=== PATIENT | female | born 1940 | race Caucasian/White ===

== ENCOUNTER → 2016-10-15 | Outpatient (CLI) | payer OTHER, BC ==
[~2016-10-15] MED LIST: ALBU1AER9 INH; ALL180 PO; ARFO15NE IN; ARFO15NE NEB; ASPI81TA21 PO; ATOR-24 PO; ATRIN INH; DYZ PO; FERR1TAB13 PO; FEXO1TAB49 PO; FRRS300 PO; GUAI1TAB55 PO; IPRA0.03 INH; IPRASOL34 INH; IPRASOL4 NEB; LEVO1TAB33 PO; LISI-729 PO; MONT1TAB5 PO; MULT-506 PO; OXGN; PLMINSR5 INH; PRED10TA PO; PROP80TA2 PO; ROFL1TAB5 PO; SNK PO; SPRIN/30 INH; TRIATAB3 PO; ZTHM250 PO
--- NOTE | 2016-10-15 16:11 | DIAGNOSTIC IMAGING REPORT ---
THYROID ULTRASOUND HISTORY: Enlarged thyroid E04.9 Enlarged thyroidthyroid US, attn. L side. Recent PET scan a COMPARISON: None. FINDINGS: Right lobe: Maximum dimension 6.3 cm. Heterogeneous internal architecture. Multiple nodules throughout the largest of which measures 1.7 cm at the midpole region. Left lobe: Enlarged and homogeneous. 5.5 cm maximum dimension. Multiple nodules throughout the left lobe with the largest joint multicystic, partial chronic component centrally measuring 3 cm. Isthmus: No nodules. IMPRESSION: Enlarged multicystic multinodular thyroid Electronically signed by: Silvio Nugent M.D. 10/15/2016 4:09 PM Dictated Date/Time: 10/15/2016 4:07 PM
== END | disposition home or self-care (01) ==
LOC: C.ULTR 15:36
PROVIDERS: ATTEND Nurse Practitioner
DX: E04.9 Nontoxic goiter, unspecified (principal)

== ENCOUNTER → 2016-11-18 | Outpatient (CLI) | payer OTHER, BC ==
[2016-11-18 13:18] LABS: THYROID STIMULATING HORMONE 0.168 uIu/ml (0.300-4.500)
== END | disposition home or self-care (01) ==
LOC: C.LABPVFM 10:48
PROVIDERS: ATTEND Internal Medicine Endocrinology, Diabetes & Metabolism
DX: E01.0 Iodine-deficiency related diffuse (endemic) goiter (principal)

== ENCOUNTER 2016-11-21 14:08 | Inpatient (IN) | payer OTHER, BC ==
[~2016-11-21] VITALS: Ht 162.6 cm; Wt 73.7 kg
[~2016-11-21 14:08] MED LIST changes: -ARFO15NE NEB; -FERR1TAB13 PO; -FEXO1TAB49 PO; -IPRA0.03 INH; -IPRASOL4 NEB; +KETAMINE HCL INJ 50 MG/ML 10 ML VIAL IV ONE; -LEVO1TAB33 PO; -LISI-729 PO; -MONT1TAB5 PO; -MULT-506 PO; -PRED10TA PO; +ROCURONIUM BROMIDE 10 MG/ML 10 ML VIAL IV ONE; -ROFL1TAB5 PO; -TRIATAB3 PO
[2016-11-21] MEDS ORDERED: RAPID SEQUENCE INDUCTION BAG ONE (14:18)
[2016-11-21] MEDS ORDERED: SODIUM CHLORIDE 0.9% 1000ML 1,000 ML IV STA (14:50)
[2016-11-21] MEDS ORDERED: LEVAQUIN 750MG / 150ML D5W IV STA (14:50)
[2016-11-21 14:53] LABS: BASO % 0.2 %; BASO ABS # 0.02 K/uL (0-0.2); COMPLETE YES; EOS % 0.6 %; HEMATOCRIT 40.7 % (37-47); IG% 0.3 %; LYMPH % 12.6 %; LYMPH ABS # 1.28 K/uL (1.2-3.4); MEAN CELL VOLUME 104.9 fL (80-100); MEAN CORPUSCULAR HEMOGLOBIN 30.7 pg (25-34); MEAN CORPUSCULAR HGB CONC 29.2 g/dl (32-36); MEAN PLATELET VOLUME 9.3 fL (7.4-10.4); MONO % 4.2 %; NEUT % 82.1 %; PLATELET COUNT 256 K/uL (130-400); RED BLOOD COUNT 3.88 M/uL (4.2-5.4); WHITE BLOOD COUNT 10.16 K/uL (4.8-10.8)
[2016-11-21 14:57] LABS: ISTAT CARBON DIOXIDE > 40 mEq/l (24-31); ISTAT CHLORIDE 94 mEq/L (101-112); ISTAT CREATININE 1.1 mg/dl (0.6-1.3); ISTAT HEMATOCRIT 39 % (37-47); ISTAT HEMOGLOBIN 13.3 g/dl (12.0-16.0); ISTAT IONIZED CALCIUM 1.46 mmol/l (1.12-1.32); ISTAT SODIUM 144 mEq/L (135-144)
--- NOTE | 2016-11-21 14:58 | EMERGENCY ROOM VISIT NOTE ---
History Report prepared by Estuardo: Mary Rojas Under the Supervision of: Dr. Cesar Godfrey D.O. First contact with patient: 14:06 Chief Complaint: RESPIRATORY DISTRESS Stated Complaint: RESPIRATORY History of Present Illness The patient is a 76 year old female who presents to the Emergency Room with complaints of worsening weakness starting 4 days ago. She was brought to the ED by EMS who state that she is moving little air. She was given albuterol and nebulizer treatments, but is still having difficulty breathing. The history was obtained from the patient's . The patient has been having increased difficulty breathing recently. She is usually on 4 L of oxygen, but she has been turning it up to 5 L. She has been weak and having difficulty walking around. Last night, she fell and had difficulty getting back up. She might have injured her ankle or foot. Her believes she did not hit her head or lose consciousness. She has also had a decreased appetite. She has a productive cough, which is normal for her. She has a history of COPD and has been on oxygen for 6-7 years. The patient smokes regularly. She has been having increased leg swelling recently. She has not had any fevers. He states that she does not drink alcohol. She has not been placed on a ventilator before. He states that she has a history of heart palpitations, but no history of MS. She is borderline diabetic. She has no history of cancer. Source of History: spouse/significant other Onset: 4 days ago Position: other (global) Quality: other (weakness) Timing: worsening Associated Symptoms: + SOB, + cough, No fevers Note: Pt has leg swelling and decreased appetite. Review of Systems See HPI for pertinent positives & negatives. A total of 10 systems reviewed and were otherwise negative. Past Medical & Surgical Medical Problems: (1) Acute respiratory failure (2) Atrial Fibrillation (3) Chronic Respiratory Failure (4) COPD (chronic obstructive pulmonary disease) (5) Hyperlipidemia Nec/Nos (6) Hypertension Nos Family History FH: heart disease Social History Smoking Status: Current Every Day Smoker Marital Status: Housing Status: lives with significant other Occupation Status: retired Current/Historical Medications Scheduled Arformoterol Tartrate (Brovana), 1 VIAL NEB BID Aspirin Enteric Coated (Ecotrin Or Generic), 81 MG PO DAILY Atorvastatin (Lipitor), 40 MG PO DAILY Budesonide (Pulmicort Respules 0.5MG/2ML), 2 ML INH Q12HR Ferrous Sulfate (Kp Ferrous Sulfate), 325 MG PO DAILY Fexofenadine Hcl (Reny Allergy), 180 MG PO BID Levofloxacin (Levaquin), 500 MG PO DIRECTED Lisinopril (Zestril), 5 MG PO DAILY Montelukast Sodium (Montelukast Sodium), 10 MG PO QPM Multivitamin (Multivitamin), 1 TAB PO DAILY Oxygen (Oxygen), 4 LITERS NA UD Prednisone Tab (Prednisone), 10 MG PO DIRECTED Propranolol (Inderal), 80 MG PO BID Roflumilast (Daliresp), 500 MCG PO DAILY Senna (Senna Lax), 8.6 MG PO QAM Tiotropium [place] (Spiriva Handihaler), 2 PUFFS INH DAILY Triamterene/Hctz (Triamterene/Hctz 37.5-25MG), 1 TAB PO BID Scheduled PRN Guaifenesin Ext Rel (Mucinex Ext Rel), 600-1,200 MG PO BID PRN for CONGESTION Ipratropium [place] (Nasal) (Ipratropium [place]), 4 PUFF INH Q4H PRN for PRN Ipratropium-Albuterol (Duoneb), 1 VIAL NEB Q4H PRN for SOB/Wheezing Allergies Coded Allergies: Penicillins (Verified Allergy, Intermediate, HIVES, 08/16/14) Cephalosporins (Verified Allergy, Mild, CEPHALEXIN--GI, 08/16/14) Tetracycline (Verified Allergy, Mild, RASH, 08/16/14) Doxycycline (Verified Allergy, Unknown, RASH, 08/16/14) Sulfamethoxazole (Verified Allergy, Unknown, 08/16/14) Replaces SULFAMETHOXAZ Trimethoprim (Verified Allergy, Unknown, 08/16/14) Replaces SULFAMETHOXAZ Physical Exam Vital Signs Date Time Temp Pulse Resp B/P Pulse Ox O2 Delivery O2 Flow Rate FiO2 11/21/16 15:45 87 20 161/74 100 Mechanical Ventilator 11/21/16 15:40 86 20 155/57 100 Mechanical Ventilator 11/21/16 15:35 87 20 150/62 100 Mechanical Ventilator 11/21/16 15:30 87 20 137/51 100 Mechanical Ventilator 11/21/16 15:25 89 20 130/59 99 Mechanical Ventilator 11/21/16 15:20 87 20 123/58 99 Mechanical Ventilator 11/21/16 15:15 90 20 112/60 100 Mechanical Ventilator 11/21/16 15:10 89 20 94/51 99 Mechanical Ventilator 11/21/16 15:05 90 20 75/38 99 Mechanical Ventilator 11/21/16 15:00 91/45 Mechanical Ventilator 11/21/16 14:58 96 20 97 Mechanical Ventilator 11/21/16 14:55 84/39 Mechanical Ventilator 11/21/16 14:53 95 16 97 Mechanical Ventilator 11/21/16 14:51 79/41 Mechanical Ventilator 11/21/16 14:50 60 11/21/16 14:50 59/46 Mechanical Ventilator 11/21/16 14:48 96 17 97 Mechanical Ventilator 11/21/16 14:45 71/41 Mechanical Ventilator 11/21/16 14:43 95 17 98 Mechanical Ventilator 11/21/16 14:40 104/53 Mechanical Ventilator 11/21/16 14:38 91 94 Mechanical Ventilator 11/21/16 14:37 148/58 11/21/16 14:33 85 97 CPAP 11/21/16 14:29 140/61 11/21/16 14:28 84 28 97 CPAP 11/21/16 14:23 82 24 95 CPAP 11/21/16 14:18 81 11/21/16 14:18 85 27 97 CPAP 11/21/16 14:10 98 11/21/16 14:08 98 BiPAP 11/21/16 14:08 36.9 163 36 146/58 98 BiPAP 11/21/16 14:08 98 BiPAP Physical Exam GENERAL: Patient is listless and lethargic. Responds to verbal commands then falls asleep easily. EYES: The conjunctivae are clear. The pupils are round and reactive. EARS, NOSE, MOUTH AND THROAT: The nose is without any evidence of any deformity. Mucous membranes are moist tongue is midline NECK: The neck is nontender and supple. RESPIRATORY: Diminished in all lung walsh. Poor air entry with very shallow respirations noted. CARDIOVASCULAR: Regular rate and rhythm noted there no murmurs rubs or gallops normal S1 normal S2 GASTROINTESTINAL: The abdomen is soft. Bowel sounds are present in all quadrants. Abdomen is nontender MUSCULOSKELETAL/EXTREMITIES: There is no evidence of gross deformity full range of motion is noted in the hips and shoulders SKIN: There is no obvious evidence of any rash. There are no petechiae, pallor or cyanosis noted. Pedal edema bilaterally. NEUROLOGIC: Patient is lethargic, unable to answer questions. Unable to assess at this time. Medical Decision & Procedures ER Provider Diagnostic Interpretation: X-ray results as stated below per interpretation by me and the radiologist. SINGLE VIEW CHEST CLINICAL HISTORY: Sepsis. FINDINGS: An AP, portable, upright chest radiograph is compared to study dated 08/16/2014 and correlated with chest CT dated 06/10/2012. The examination is degraded by portable technique and patient rotation. An endotracheal tube has been placed. The tip of the catheter projects 2.5 cm above the unruly. The heart is normal for projection and there is atherosclerotic calcification of the thoracic aorta. The pulmonary vasculature is noncongested. Emphysema and chronic interstitial thickening are similar to previous. There is bibasilar patchy airspace consolidation and small pleural effusions. A calcified granuloma is noted at the right apex. No pneumothorax is seen. The skeletal structures are osteopenic. The bony thorax is grossly intact. IMPRESSION: 1. An endotracheal tube has been placed. The tip of the catheter projects 2.5 cm above the unruly. 2. Emphysema. 3. There is bibasilar patchy airspace consolidation with small pleural effusions. The appearance is typical for pneumonia/aspiration pneumonitis. Clinical correlation will be required and radiographic follow-up to resolution is recommended. Electronically signed by: Darci Hobbs M.D. 11/21/2016 3:09 PM Dictated Date/Time: 11/21/2016 3:07 PM Laboratory Results 11/21/16 14:42 Red Blood Count 3.88, Mean Corpuscular Volume 104.9, Mean Corpuscular Hemoglobin 30.7, Mean Corpuscular Hemoglobin Concent 29.2, Mean Platelet Volume 9.3, Neutrophils (%) (Auto) 82.1, Lymphocytes (%) (Auto) 12.6, Monocytes (%) ( Auto) 4.2, Eosinophils (%) (Auto) 0.6, Basophils (%) (Auto) 0.2, Neutrophils # ( Auto) 8.34, Lymphocytes # (Auto) 1.28, Monocytes # (Auto) 0.43, Eosinophils # ( Auto) 0.06, Basophils # (Auto) 0.02 11/21/16 14:42 Test 11/21/16 14:42 11/21/16 14:43 11/21/16 14:54 11/21/16 15:35 White Blood Count 10.16 K/uL (4.8-10.8) Red Blood Count 3.88 M/uL (4.2-5.4) Hemoglobin 11.9 g/dL (12.0-16.0) Hematocrit 40.7 % (37-47) Mean Corpuscular Volume 104.9 fL (80-100) Mean Corpuscular Hemoglobin 30.7 pg (25-34) Mean Corpuscular Hemoglobin Concent 29.2 g/dl (32-36) Platelet Count 256 K/uL (130-400) Mean Platelet Volume 9.3 fL (7.4-10.4) Neutrophils (%) (Auto) 82.1 % Lymphocytes (%) (Auto) 12.6 % Monocytes (%) (Auto) 4.2 % Eosinophils (%) (Auto) 0.6 % Basophils (%) (Auto) 0.2 % Neutrophils # (Auto) 8.34 K/uL (1.4-6.5) Lymphocytes # (Auto) 1.28 K/uL (1.2-3.4) Monocytes # (Auto) 0.43 K/uL (0.11-0.59) Eosinophils # (Auto) 0.06 K/uL (0-0.5) Basophils # (Auto) 0.02 K/uL (0-0.2) RDW Standard Deviation 54.7 fL (36.4-46.3) RDW Coefficient of Variation 14.3 % (11.5-14.5) Immature Granulocyte % (Auto) 0.3 % Immature Granulocyte # (Auto) 0.03 K/uL (0.00-0.02) Erythrocyte Sedimentation Rate 47 mm/hr (0-21) Prothrombin Time 9.9 SECONDS (9.0-12.0) Prothromb Time International Ratio 0.9 (0.9-1.1) Activated Partial Thromboplast Time 21.5 SECONDS (21.0-31.0) Partial Thromboplastin Ratio 0.8 Venous Blood pH 7.19 (7.36-7.41) Venous Blood Partial Pressure CO2 118 mmHg (38.0-50.0) Venous Blood Partial Pressure O2 72 mmHg Venous Blood HCO3 44 meq/L Venous Blood Oxygen Saturation 91.1 % Venous Blood Base Excess 11.8 mmol/L Est Creatinine Clear Calc Drug Dose 43.1 ml/min Estimated GFR () 56.1 Estimated GFR (Non- 48.4 BUN/Creatinine Ratio 42.7 (10-20) Calcium Level 10.7 mg/dl (8.5-10.1) Phosphorus Level 4.3 mg/dl (2.5-4.9) Magnesium Level 2.5 mg/dl (1.8-2.4) Total Bilirubin 0.3 mg/dl (0.2-1) Aspartate Amino Transf (AST/SGOT) 20 U/L (15-37) Alanine Aminotransferase (ALT/SGPT) 20 U/L (12-78) Alkaline Phosphatase 55 U/L (45-117) Total Creatine Kinase 31 U/L (26-192) Creatine Kinase MB < 0.5 ng/ml (0.5-3.6) Creatine Kinase MB Ratio (0-3.0) Troponin I < 0.015 ng/ml (0-0.045) C-Reactive Protein 2.79 mg/dl (0-0.29) Pro-B-Type Natriuretic Peptide 814 pg/ml (0-1800) Total Protein 7.4 gm/dl (6.4-8.2) Albumin 3.1 gm/dl (3.4-5.0) Globulin 4.3 gm/dl (2.5-4.0) Albumin/Globulin Ratio 0.7 (0.9-2) Lipase 214 U/L (73-393) Chemistry Specimen Hemolysis Bedside Hemoglobin 13.3 g/dl (12.0-16.0) Bedside Hematocrit 39 % (37-47) Bedside Sodium 144 mEq/L (135-144) Bedside Potassium 5.7 mEq/L (3.3-5.0) Bedside Chloride 94 mEq/L (101-112) Bedside Total CO2 > 40 mEq/l (24-31) Anion Gap 11.0 mmol/L (16-25) Bedside Blood Urea Nitrogen 48 mg/dl (7-18) Bedside Creatinine 1.1 mg/dl (0.6-1.3) Bedside Glucose (other) 151 mg/dl (70-99) Bedside Ionized Calcium (Adiel) 1.46 mmol/l (1.12-1.32) Bedside Lactic Acid Venous 0.37 mmol/L (0.90-1.70) Urine Color YELLOW Urine Appearance CLEAR (CLEAR) Urine pH 6.0 (4.5-7.5) Urine Specific [place] 1.018 (1.000-1.030) Urine Protein 1+ (NEG) Urine Glucose (UA) NEG (NEG) Urine Ketones NEG (NEG) Urine Occult Blood 1+ (NEG) Urine Nitrite POS (NEG) Urine Bilirubin NEG (NEG) Urine Urobilinogen NEG (NEG) Urine Leukocyte Esterase NEG (NEG) Urine WBC (Auto) 1-5 /hpf (0-5) Urine RBC (Auto) 0-4 /hpf (0-4) Urine Hyaline Casts (Auto) 5-10 /lpf (0-5) Urine Epithelial Cells (Auto) 10-20 /lpf (0-5) Urine Bacteria (Auto) 4+ (NEG) Laboratory results per my review. Medications Administered Medications (Trade) Dose Ordered Sig/Omkar Route Start Time Stop Time Status Last Admin Dose Admin Levofloxacin 750 mg 750 mg NOW STAT IV 11/21/16 14:50 11/21/16 14:51 DC 11/21/16 15:17 750 MG Sodium Chloride (Nss 1000ml) 1,000 ml @ 999 mls/hr Q1H1M STAT IV 11/21/16 14:50 11/21/16 15:50 DC 11/21/16 15:10 999 MLS/HR Procedure Endotracheal Intubation Indication respiratory failure. The patient was on 100% oxygen via NRB prior to the procedure. Suction, airway equipment, RSI drugs, respiratory equipment, and appropriate personnel were prepared prior to the initiation of the procedure. A time out was taken. Induction was performed with ketamine 80 mg. After observing the clinical benefit of the medications, the airway was easily visualized utilizing a GlideScope. A 7.5 size ETT tube was placed atraumatically to 21 cm to the lip using standard technique. The cuff inflated without signs of malfunction. There were bilateral breath sounds, positive colormetric change, no gastric sounds, a good capnography waveform, and post procedure pulse oximetry was 96%. Post intubation sedation and paralysis was administered using propofol. There were no complications. ECG Indication: SOB/dyspnea Rate (beats per minute): 80 Rhythm: normal sinus Findings: peaked T-waves, no ectopy, other (no ST segment abnormalities) Comparison ECG Date: Change: no significant change ED Course 1415: The patient was evaluated in room B1. A complete history and physical examination were performed. 1418: Rapid Sequence Induction Bag 1 ea. 1430: The patient was intubated according to the procedure note above. 1450: NSS 1000 ml @ 999 mls/hr IV, Levofloxacin 750 mg IV. 1500: Duoneb 12 ml INH. 1504: I discussed the patient's case with LOUISE Lin - hospitalist. The patient will be evaluated for further management. 1507: I reevaluated the patient. I discussed results and treatment plan with her . He verbalizes agreement and understanding. The patient will be evaluated for further management and care. Medical Decision Prior records/ancillary studies reviewed. Triage Nursing notes reviewed. Additional history obtained from the family. The patient's history was concerning for respiratory difficulties. Differential diagnosis: Etiologies such as infections, reactive airway disease, pneumonia, pneumothorax , COPD, CHF, cardiac ischemia, pulmonary embolism, musculoskeletal, gastrointestinal, as well as others were entertained. The patient is a 76-year-old female who has a history of COPD who presented to the emergency department for ongoing progressive weakness and shortness of breath. The patient has been increasing her oxygen with her home oxygen therapy. Her significant other had to give history because the patient was in respiratory distress and very listless and lethargic upon arrival. The patient presented to the emergency department by ambulance. On route she received Solu- Medrol and multiple bronchodilator treatments. She was not significantly improved and according to the prehospital personnel appeared to be having worsening symptoms. The patient was quickly intubated for respiratory treatment. The patient was found have significant respiratory acidosis. She was treated with IV fluids and IV antibiotics. She was reevaluated multiple times. I discussed the patient's laboratory and radiographic studies with her significant other. I also discussed his case [facility] They've agreed to evaluate the patient in the emergency department for further management and disposition. Consults Time Called: 1501 Consulting Physician: LOUISE Lin - hospitalist Returned Call: 1504 I discussed the patient's case with him. The patient will be evaluated for further management. Impression Primary Impression: COPD exacerbation Additional Impressions: Hypoxia Pneumonia Respiratory acidosis Altered mental status Hyperkalemia Critical Care I have personally spent greater than 45 minutes of critical care time in the direct management of this patient. This includes bedside care, interpretation of diagnostic studies, and testing, discussion with consultants, patient, and family members, and other required patient management activities. This 45 minutes is in excess of all separately billable procedures. Scribe Attestation The scribe's documentation has been prepared under my direction and personally reviewed by me in its entirety. I confirm that the note above accurately reflects all work, treatment, procedures, and medical decision making performed by me. Departure Information Dispostion Being Evaluated By Hospitalist Referrals Yanira Valdez, [email or web address] (PCP) Patient Instructions Asthma - [facility], COPD - [facility], Croup - [facility], [facility] Problem Qualifiers Additional Impressions: Pneumonia Pneumonia type: due to unspecified organism Laterality: bilateral Lung location: unspecified part of lung Qualified Codes: J18.9 - Pneumonia, unspecified organism Altered mental status Altered mental status type: unspecified Qualified Codes: R41.82 - Altered mental status, unspecified
[2016-11-21] MEDS ORDERED: MULT-506 PO (15:00)
[2016-11-21] MEDS ORDERED: IPRASOL4 NEB (15:00)
[2016-11-21] MEDS ORDERED: ALBUT/IPRATROP 3MG/0.5MG NEB 3 ML VIAL INH ONE (15:00)
[2016-11-21] MEDS ORDERED: LISI-729 PO (15:00)
[2016-11-21] MEDS ORDERED: FEXO1TAB49 PO (15:00)
[2016-11-21] MEDS ORDERED: IPRA0.03 INH (15:00)
[2016-11-21] MEDS ORDERED: LEVO1TAB33 PO (15:00)
[2016-11-21] MEDS ORDERED: MONT1TAB5 PO (15:00)
[2016-11-21] MEDS ORDERED: ROFL1TAB5 PO (15:00)
[2016-11-21] MEDS ORDERED: FERR1TAB13 PO (15:00)
[2016-11-21] MEDS ORDERED: ARFO15NE NEB (15:00)
[2016-11-21] MEDS ORDERED: PRED10TA PO (15:00)
[2016-11-21] MEDS ORDERED: TRIATAB3 PO (15:00)
[2016-11-21 15:01] LABS: VEN BLD GAS O2 SATURATION 91.1 %; VEN BLOOD GAS BASE EXCESS 11.8 mmol/L; VENOUS BLOOD GAS PCO2 118 mmHg (38.0-50.0); VENOUS BLOOD GAS PO2 72 mmHg
[2016-11-21 15:06] LABS: INR 0.9 (0.9-1.1); PARTIAL THROMBOPLASTIN RATIO 0.8; PROTHROMBIN TIME (PATIENT) 9.9 SECONDS (9.0-12.0)
--- NOTE | 2016-11-21 15:11 | DIAGNOSTIC IMAGING REPORT ---
SINGLE VIEW CHEST CLINICAL HISTORY: Sepsis. FINDINGS: An AP, portable, upright chest radiograph is compared to study dated 08/16/2014 and correlated with chest CT dated 06/10/2012. The examination is degraded by portable technique and patient rotation. An endotracheal tube has been placed. The tip of the catheter projects 2.5 cm above the unruly. The heart is normal for projection and there is atherosclerotic calcification of the thoracic aorta. The pulmonary vasculature is noncongested. Emphysema and chronic interstitial thickening are similar to previous. There is bibasilar patchy airspace consolidation and small pleural effusions. A calcified granuloma is noted at the right apex. No pneumothorax is seen. The skeletal structures are osteopenic. The bony thorax is grossly intact. IMPRESSION: 1. An endotracheal tube has been placed. The tip of the catheter projects 2.5 cm above the unruly. 2. Emphysema. 3. There is bibasilar patchy airspace consolidation with small pleural effusions. The appearance is typical for pneumonia/aspiration pneumonitis. Clinical correlation will be required and radiographic follow-up to resolution is recommended. Electronically signed by: Darci Hobbs M.D. 11/21/2016 3:09 PM Dictated Date/Time: 11/21/2016 3:07 PM
[2016-11-21 15:31] LABS: ALT/SGPT 20 U/L (12-78); AST/SGOT 20 U/L (15-37); CALCIUM 10.7 mg/dl (8.5-10.1); CHLORIDE 100 mmol/L (98-107)
[2016-11-21 15:32] LABS: ALB/GLOB RATIO 0.7 (0.9-2); ALKALINE PHOSPHATASE 55 U/L (45-117); BLOOD UREA NITROGEN 47 mg/dl (7-18); BUN/CREATININE RATIO 42.7 (10-20); C-REACTIVE PROTEIN 2.79 mg/dl (0-0.29); GLUCOSE 144 mg/dl (70-99); MAGNESIUM 2.5 mg/dl (1.8-2.4); PHOSPHORUS 4.3 mg/dl (2.5-4.9); POTASSIUM 5.7 mmol/L (3.5-5.1); SODIUM 144 mmol/L (136-145)
[2016-11-21 15:33] LABS: CARBON DIOXIDE 47 mmol/L (21-32)
[2016-11-21] MEDS ORDERED: MoRPHine SULFATE 4 MG/ML 1 ML CARP\\VIAL IV PRN (15:45)
[2016-11-21] MEDS ORDERED: ALBUT/IPRATROP 3MG/0.5MG NEB 3 ML VIAL INH PRN (15:45)
[2016-11-21] MEDS ORDERED: HYDROmorphone HCL 2 MG TAB PO PRN (15:45)
[2016-11-21 15:49] LABS: URINE APPEARANCE CLEAR (CLEAR); URINE BILIRUBIN NEG (NEG); URINE COLOR YELLOW; URINE NITRITE POS (NEG); URINE SPECIFIC GRAVITY 1.018 (1.000-1.030); UROBILINOGEN NEG (NEG); ZZURINE CULT IF INDIC CATH YES
[2016-11-21 15:51] LABS: MANUAL MICROSCOPIC REQUIRED? NO; REVIEW REQ? NO
[2016-11-21] MEDS ORDERED: PROPOFOL IV EMULSION 10 MG/ML 100 ML VIAL IV PRN (16:00)
--- NOTE | 2016-11-21 16:53 | History and Physical ---
History & Physical Date & Time of Service: Nov 21, 2016 at 16:27 Chief Complaint: Respiratory Primary Care Physician: Yanira Valdez C.R.N.P History of Present Illness This is a 76 yo F w/ hx of Severe COPD on Home O2 at 5 L and Atrial Fibrillation ( not on anticoagulation) BIBA p/w Acute worsening of SOB. Most history is per patient's and the chart due patient having been intubated. According to , patient has experiences increased SOB in the past 2 wks but acutely worsened within the last 2-3 days. NO complaints of Chest pain, palpitation, calf pain. Additionally patient experienced increased fatigue, weakness and had a fall prior to arrival. reports patient felt "weak in the legs" as opposed to presyncope of syncope. No associated head trauma. Patient also experienced increased Kalia LE edema in the last 2 wks but has been getting better since 11/19 while on home diuretic therapy (Triamterene/ HCTZ). Per , patient had no fevers/chills , nausea, vomiting, change in stool. Prior to arrival, per EMS, patient had desaturated into the 70's and arrived on BIPAP. IN the ED, patient was minimally responsive , though saturation improved into the 90's on BIPAP. Following a VBG showing CO2 of 47, she was intubated. CXR showed bibasilar consolidation. She was given IV Fluids, Duonebs ,and a dose of Levaquin. Past Medical/Surgical History Medical Problems: (1) Atrial Fibrillation Status: Chronic (2) Chronic Respiratory Failure Status: Chronic (3) COPD (chronic obstructive pulmonary disease) Status: Chronic (4) Hyperlipidemia Nec/Nos Status: Chronic (5) Hypertension Nos Status: Chronic Family History FH: heart disease Social History Smoking Status: Current Every Day Smoker Marital Status: Housing status: lives with family Occupational Status: retired Immunizations History of Influenza Vaccine: No History of Tetanus Vaccine?: Unknown History of Pneumococcal: Yes History of Hepatitis B Vaccine: No Multi-Drug Resistant Organisms History of MDRO: No Allergies Coded Allergies: Penicillins (Verified Allergy, Intermediate, HIVES, 08/16/14) Cephalosporins (Verified Allergy, Mild, CEPHALEXIN--GI, 08/16/14) Tetracycline (Verified Allergy, Mild, RASH, 08/16/14) Doxycycline (Verified Allergy, Unknown, RASH, 08/16/14) Sulfamethoxazole (Verified Allergy, Unknown, 08/16/14) Replaces SULFAMETHOXAZ Trimethoprim (Verified Allergy, Unknown, 08/16/14) Replaces SULFAMETHOXAZ Home Medications Scheduled Arformoterol Tartrate (Brovana), 1 VIAL NEB BID Aspirin Enteric Coated (Ecotrin Or Generic), 81 MG PO DAILY Atorvastatin (Lipitor), 40 MG PO DAILY Budesonide (Pulmicort Respules 0.5MG/2ML), 2 ML INH Q12HR Ferrous Sulfate (Kp Ferrous Sulfate), 325 MG PO DAILY Fexofenadine Hcl (Reny Allergy), 180 MG PO BID Levofloxacin (Levaquin), 500 MG PO DIRECTED Lisinopril (Zestril), 5 MG PO DAILY Montelukast Sodium (Montelukast Sodium), 10 MG PO QPM Multivitamin (Multivitamin), 1 TAB PO DAILY Oxygen (Oxygen), 4 LITERS NA UD Prednisone Tab (Prednisone), 10 MG PO DIRECTED Propranolol (Inderal), 80 MG PO BID Roflumilast (Daliresp), 500 MCG PO DAILY Senna (Senna Lax), 8.6 MG PO QAM Tiotropium [place] (Spiriva Handihaler), 2 PUFFS INH DAILY Triamterene/Hctz (Triamterene/Hctz 37.5-25MG), 1 TAB PO BID Scheduled PRN Guaifenesin Ext Rel (Mucinex Ext Rel), 600-1,200 MG PO BID PRN for CONGESTION Ipratropium [place] (Nasal) (Ipratropium [place]), 4 PUFF INH Q4H PRN for PRN Ipratropium-Albuterol (Duoneb), 1 VIAL NEB Q4H PRN for SOB/Wheezing Review of Systems could not get complete review of systems as patient was intubated Physical Exam Vital Signs Date Time Temp Pulse Resp B/P Pulse Ox O2 Delivery O2 Flow Rate FiO2 11/21/16 15:40 86 20 155/57 100 CPAP 11/21/16 15:35 87 20 150/62 100 CPAP 11/21/16 15:30 87 20 137/51 100 CPAP 11/21/16 15:25 89 20 130/59 99 CPAP 11/21/16 15:20 87 20 123/58 99 CPAP 11/21/16 15:15 90 20 112/60 100 CPAP 11/21/16 15:10 89 20 94/51 99 CPAP 11/21/16 15:05 90 20 75/38 99 CPAP 11/21/16 15:00 91/45 11/21/16 14:58 96 20 97 CPAP 11/21/16 14:55 84/39 11/21/16 14:53 95 16 97 CPAP 11/21/16 14:51 79/41 11/21/16 14:50 60 11/21/16 14:50 59/46 11/21/16 14:48 96 17 97 CPAP 11/21/16 14:45 71/41 11/21/16 14:43 95 17 98 CPAP 11/21/16 14:40 104/53 11/21/16 14:38 91 94 CPAP 11/21/16 14:37 148/58 11/21/16 14:33 85 97 CPAP 11/21/16 14:29 140/61 11/21/16 14:28 84 28 97 CPAP 11/21/16 14:23 82 24 95 CPAP 11/21/16 14:18 81 11/21/16 14:18 85 27 97 CPAP 11/21/16 14:10 98 11/21/16 14:08 98 BiPAP 11/21/16 14:08 36.9 163 36 146/58 98 BiPAP 11/21/16 14:08 98 BiPAP General Appearance: + pertinent finding (sedated intubated ) Head: atraumatic Eyes: PERRL, EOMI Neck: supple, no JVD, no carotid bruits Respiratory/Chest: lungs clear, normal breath sounds, + pertinent finding ( coarse breath sounds kalia) Cardiovascular: no edema, no murmur, + irregularly irregular, + pertinent finding (2 + kalia LE edema) Abdomen/GI: normal bowel sounds, soft, no organomegaly Extremities/Musculoskelatal: + pedal edema Neurologic/Psych: + pertinent finding (sedated) Skin: normal color, warm/dry, no rash Diagnostics Laboratory Results Results Past 24 Hours Test 11/21/16 14:42 11/21/16 14:43 11/21/16 14:54 11/21/16 15:35 Range/Units White Blood Count 10.16 4.8-10.8 K/uL Red Blood Count 3.88 4.2-5.4 M/uL Hemoglobin 11.9 12.0-16.0 g/dL Hematocrit 40.7 37-47 % Mean Corpuscular Volume 104.9 80-100 fL Mean Corpuscular Hemoglobin 30.7 25-34 pg Mean Corpuscular Hemoglobin Concent 29.2 32-36 g/dl Platelet Count 256 130-400 K/uL Mean Platelet Volume 9.3 7.4-10.4 fL Neutrophils (%) (Auto) 82.1 % Lymphocytes (%) (Auto) 12.6 % Monocytes (%) (Auto) 4.2 % Eosinophils (%) (Auto) 0.6 % Basophils (%) (Auto) 0.2 % Neutrophils # (Auto) 8.34 1.4-6.5 K/uL Lymphocytes # (Auto) 1.28 1.2-3.4 K/uL Monocytes # (Auto) 0.43 0.11-0.59 K/uL Eosinophils # (Auto) 0.06 0-0.5 K/uL Basophils # (Auto) 0.02 0-0.2 K/uL RDW Standard Deviation 54.7 36.4-46.3 fL RDW Coefficient of Variation 14.3 11.5-14.5 % Immature Granulocyte % (Auto) 0.3 % Immature Granulocyte # (Auto) 0.03 0.00-0.02 K/uL Erythrocyte Sedimentation Rate 47 0-21 mm/hr Prothrombin Time 9.9 9.0-12.0 SECONDS Prothromb Time International Ratio 0.9 0.9-1.1 Activated Partial Thromboplast Time 21.5 21.0-31.0 SECONDS Partial Thromboplastin Ratio 0.8 Venous Blood pH 7.19 7.36-7.41 Venous Blood Partial Pressure CO2 118 38.0-50.0 mmHg Venous Blood Partial Pressure O2 72 mmHg Venous Blood HCO3 44 meq/L Venous Blood Oxygen Saturation 91.1 % Venous Blood Base Excess 11.8 mmol/L Sodium Level 144 136-145 mmol/L Potassium Level 5.7 3.5-5.1 mmol/L Chloride Level 100 98-107 mmol/L Carbon Dioxide Level 47 21-32 mmol/L Anion Gap -3.0 11.0 16-25 mmol/L Blood Urea Nitrogen 47 7-18 mg/dl Creatinine 1.10 0.60-1.20 mg/dl Est Creatinine Clear Calc Drug Dose 43.1 ml/min Estimated GFR () 56.1 Estimated GFR (Non- 48.4 BUN/Creatinine Ratio 42.7 10-20 Random Glucose 144 70-99 mg/dl Calcium Level 10.7 8.5-10.1 mg/dl Phosphorus Level 4.3 2.5-4.9 mg/dl Magnesium Level 2.5 1.8-2.4 mg/dl Total Bilirubin 0.3 0.2-1 mg/dl Aspartate Amino Transf (AST/SGOT) 20 15-37 U/L Alanine Aminotransferase (ALT/SGPT) 20 12-78 U/L Alkaline Phosphatase 55 45-117 U/L Total Creatine Kinase 31 26-192 U/L Creatine Kinase MB < 0.5 0.5-3.6 ng/ml Creatine Kinase MB Ratio 0-3.0 Troponin I < 0.015 0-0.045 ng/ml C-Reactive Protein 2.79 0-0.29 mg/dl Pro-B-Type Natriuretic Peptide 814 0-1800 pg/ml Total Protein 7.4 6.4-8.2 gm/dl Albumin 3.1 3.4-5.0 gm/dl Globulin 4.3 2.5-4.0 gm/dl Albumin/Globulin Ratio 0.7 0.9-2 Lipase 214 73-393 U/L Chemistry Specimen Hemolysis Bedside Hemoglobin 13.3 12.0-16.0 g/dl Bedside Hematocrit 39 37-47 % Bedside Sodium 144 135-144 mEq/L Bedside Potassium 5.7 3.3-5.0 mEq/L Bedside Chloride 94 101-112 mEq/L Bedside Total CO2 > 40 24-31 mEq/l Bedside Blood Urea Nitrogen 48 7-18 mg/dl Bedside Creatinine 1.1 0.6-1.3 mg/dl Bedside Glucose (other) 151 70-99 mg/dl Bedside Ionized Calcium (Adiel) 1.46 1.12-1.32 mmol/l Bedside Lactic Acid Venous 0.37 0.90-1.70 mmol/L Urine Color YELLOW Urine Appearance CLEAR CLEAR Urine pH 6.0 4.5-7.5 Urine Specific [place] 1.018 1.000-1.030 Urine Protein 1+ NEG Urine Glucose (UA) NEG NEG Urine Ketones NEG NEG Urine Occult Blood 1+ NEG Urine Nitrite POS NEG Urine Bilirubin NEG NEG Urine Urobilinogen NEG NEG Urine Leukocyte Esterase NEG NEG Urine WBC (Auto) 1-5 0-5 /hpf Urine RBC (Auto) 0-4 0-4 /hpf Urine Hyaline Casts (Auto) 5-10 0-5 /lpf Urine Epithelial Cells (Auto) 10-20 0-5 /lpf Urine Bacteria (Auto) 4+ NEG Microbiology Results 11/21/16 Blood Culture, Received Pending 11/21/16 Blood Culture, Received Pending 11/21/16 Urine Culture, Received Pending Diagnostic Radiology [~ rep ct add3]] SINGLE VIEW CHEST CLINICAL HISTORY: Sepsis. FINDINGS: An AP, portable, upright chest radiograph is compared to study dated 08/16/2014 and correlated with chest CT dated 06/10/2012. The examination is degraded by portable technique and patient rotation. An endotracheal tube has been placed. The tip of the catheter projects 2.5 cm above the unruly. The heart is normal for projection and there is atherosclerotic calcification of the thoracic aorta. The pulmonary vasculature is noncongested. Emphysema and chronic interstitial thickening are similar to previous. There is bibasilar patchy airspace consolidation and small pleural effusions. A calcified granuloma is noted at the right apex. No pneumothorax is seen. The skeletal structures are osteopenic. The bony thorax is grossly intact. IMPRESSION: 1. An endotracheal tube has been placed. The tip of the catheter projects 2.5 cm above the unruly. 2. Emphysema. 3. There is bibasilar patchy airspace consolidation with small pleural effusions. The appearance is typical for pneumonia/aspiration pneumonitis. Clinical correlation will be required and radiographic follow-up to resolution is recommended. EKG Indication: SOB/dyspnea Rate (beats per minute): 80 Rhythm: normal sinus Findings: peaked T-waves, no ectopy, other (no ST segment abnormalities) Comparison ECG Date: Change: no significant change Impression Assessment and Plan 76 yo F w/ hx of COPD on HOME O2 @ 5L p/w Acute worsening of SOB with acute hypoxic Resp. failure prior to arrival with a VBG showing CO2 of 47 in addition to generalized weakness, Hx of fall , and chronic LE edema. Acute on Chronic Respiratory Failure - Differential diagnoses includes but is not limited to pneumonia, bronchitis, COPD exacerbation, pneumothorax, pulmonary embolism, congestive heart failure, acute coronary syndrome - likely due to COPD exacerbation in the setting of Pneumonia based on CXR showing bibasilar consolidation - EKG, Troponin unremarkable for ACS, BNP of 814, LE Edema could indicated possible CHF , F/u Echo - Patient currently intubated on mechanical ventilator, maintaining normal oxygen saturation - Started Vancomycin, Levaquin due to PCN, Cephalosporin allergy - Start IV Solu-medrol 60 mg TID duonebs prn Bibasilar consolidation - Pneumonia vs. Pneumonitis - Vancomycin, Levaquin as above - F/u Sputum cx - F/u blood cx Atrial Fibrillation - rate is controlled - restart Propanolol 80 mg daily - not on anticoagulation Hyperkalemia -K 5.7 -Patient on IV Fluids -Recheck K in am - Hold Triamterene Hyperlipidemia -restart Lipitor HTN -Triamterene held c/w Lisinopril, Propranolol DVT Prophylaxis - Heparin Resident Physician Supervision Note: I was present with Dr. Falk during the history and exam. I discussed the case with the resident and agree with the findings and plan as documented in the note. Any exceptions or clarifications are listed here: Pt intubated on arrival to ER. Admit to ICU at this time. ABG noted for elev CO2 likely from COPD. on 4L O2 at home at all times, no leukocytosis or fevers, cont IV antibx at this time. Hold antihypertensives as hypotensive from propafol likely. Vent management per Pad Tufter. Reviewed imaging and lab data Lungs: Coarse breath sounds, rhonchi and scattered wheezes Documented By: Adal Allen Level of Care Critical Care VTE Prophylaxis VTE Risk Assessment Done? Y/N: Yes Risk Level: Moderate Given or contraindicated: Unfractionated heparin SQ Social Service Consult None Apply Resident Tracking Resident Involvement: Resident Care Provided Care Provided: Adult Hospital Medicine
[2016-11-21] MEDS ORDERED: VANCOMYCIN INJ 1,900 MG in SODIUM CHLORIDE 0.9% 500ML 500 ML IV ONE (17:11)
[2016-11-21 17:13] VITALS: BP 93/59; PULSE 82; TEMP 37.2; O2SAT 92
[2016-11-21] MEDS ORDERED: VANCOMYCIN CONSULT ACTIVE PRN (17:15)
[2016-11-21] MEDS ORDERED: LEVOFLOXACIN CONSULT ACTIVE PRN (17:15)
--- NOTE | 2016-11-21 17:39 | Pharmacy Progress Note ---
Pharmacy Antibiotic Consult Date of Service: Nov 21, 2016. Pharmacy Dosing Scope Pharmacy is consulted to initiate Vancomycin and Levaquin IV dosing therapy, order appropriate labs and adjust drug dose/frequency. Subjective The patient is a 76 year old female admitted on Nov 21, 2016 at 15:48. Objective Height (Feet): 5 Height (Inches): 4.00 Weight (Kilograms): 77.300 Lab Results (24hrs): Laboratory Tests Test 11/21/16 14:42 BUN/Creatinine Ratio 42.7 Blood Urea Nitrogen 47 mg/dl Creatinine 1.10 mg/dl White Blood Count 10.16 K/uL Red Blood Count 3.88 M/uL Hemoglobin 11.9 g/dL Hematocrit 40.7 % Mean Corpuscular Volume 104.9 fL Mean Corpuscular Hemoglobin 30.7 pg Mean Corpuscular Hemoglobin Concent 29.2 g/dl Platelet Count 256 K/uL Mean Platelet Volume 9.3 fL Neutrophils (%) (Auto) 82.1 % Lymphocytes (%) (Auto) 12.6 % Monocytes (%) (Auto) 4.2 % Eosinophils (%) (Auto) 0.6 % Basophils (%) (Auto) 0.2 % Neutrophils # (Auto) 8.34 K/uL Lymphocytes # (Auto) 1.28 K/uL Monocytes # (Auto) 0.43 K/uL Eosinophils # (Auto) 0.06 K/uL Basophils # (Auto) 0.02 K/uL Micro Results: Item Value Date Time Urine Culture Received 11/21/16 1535 Urine,Catheterized Pending Blood Culture Received 11/21/16 1454 Blood Pending Blood Culture Received 11/21/16 1442 Blood Pending MRSA nasal swab also ordered; uncollected at this time Assessment & Plan Assessment * 76 y/o F being empirically treated with IV Vancomycin and Levaquin for possible pneumonia vs. COPD exacerbation. * Renal function appears to be at baseline. Most recent sCr = 1.1 mg/dL with estimated CrCl ~43 mL/min. Estimated pharmacokinetic parameters: * Ke ~0.040/hr, T1/2 ~17.3 hrs, Vd <0.7 L/kg Plan VANCOMYCIN * Give Vancomycin 1900mg (~25mg/kg) IV x 1 as a loading dose * Initiate Vancomycin 1350mg (~17mg/kg) IV q24 * Goal Vancomycin trough 15-20 mcg/mL * Trough level ordered for 11/23 @ 1730 (only prior to the 2nd dose and therefore not reflective of steady state, but would like to assess dosing regimen earlier due to patient's age and q24 dosing) LEVAQUIN * Decrease Levaquin to 750mg IV q48 for CrCl <50 mL/min Pharmacy will continue to follow and will adjust dose/frequency as necessary. Thank you
[2016-11-21 17:48] LABS: ISTAT ALLEN TEST Pass; ISTAT ARTERIAL BLOOD GAS HCO3 39 meq/L (19-24); ISTAT ARTERIAL BLOOD GAS PCO2 64 mmHg (35-46); ISTAT ARTERIAL BLOOD GAS PO2 79 mmHg (80-95); ISTAT CARBON DIOXIDE > 40 mEq/l (24-31); ISTAT DELIVERY SYSTEM Ventilator; ISTAT FIO2 50 %; ISTAT PEEP 5; ISTAT RATE 20; ISTAT SITE L Radial; VE 8.8; Vt 500
[2016-11-21 18:00] VITALS: BP 132/62; PULSE 85; O2SAT 99
[2016-11-21] MEDS: HEPARIN SOD 5000 UNIT/0.5 ML CARP SQ SCH ×2 (18:09→23:02)
[2016-11-21] MEDS: METHYLPREDNISOLONE IV 60 MG in SYRINGE 0 ML IV SCH (18:15)
[2016-11-21] MEDS: AZTREONAM IV 1,000 MG in DEXTROSE 5% 100ML 100 ML IV SCH (18:15)
[2016-11-21 18:18] VITALS: Ht 162.6 cm; Wt 73.7 kg
[2016-11-21] MEDS ORDERED: ALBUTEROL 0.083% NEBU SOLN 3 ML VIAL INH STA (19:35)
[2016-11-21] MEDS ORDERED: ALBUTEROL HFA 8 GM INHALER INH PRN (19:45)
--- NOTE | 2016-11-21 19:45 | DIAGNOSTIC IMAGING REPORT ---
KUB CLINICAL HISTORY: Enteric tube placement. FINDINGS: 2 AP, portable, supine abdominal radiographs are obtained. An enteric tube projects below the diaphragm over the distal stomach. There is no radiographic evidence of bowel obstruction. No evidence of intraperitoneal free air is seen on these supine views. There is moderate colonic fecal retention. No abnormal abdominal calcifications are identified. An endotracheal tube projects above the unruly. Bibasilar airspace opacities are noted. The skeletal structures are osteopenic. There is lumbosacral spondylosis and scoliosis. IMPRESSION: 1. An enteric tube projects below the diaphragm over the distal stomach. 2. Nonobstructed abdominal bowel gas pattern. Electronically signed by: Darci Hobbs M.D. 11/21/2016 7:43 PM Dictated Date/Time: 11/21/2016 7:42 PM
[2016-11-21] MEDS: PROPOFOL IV EMULSION 10 MG/ML 100 ML VIAL IV PRN (20:00)
[2016-11-21] MEDS ORDERED: INFLUENZA VIRUS QUAD VACCINE 0.5 ML SYR IM. ONE (20:00)
[2016-11-21] MEDS ORDERED: INFLUENZA ADMINISTRATION CHARGE ONE (20:00)
[2016-11-21 20:01] VITALS: BP 171/77; PULSE 87; TEMP 37.6; O2SAT 96
[2016-11-21] MEDS: ALBUTEROL HFA 8 GM INHALER INH SCH (20:10)
[2016-11-21] MEDS: IPRATROPIUM BROMIDE HFA INHALER INH SCH (20:10)
[2016-11-21 20:26] LABS: BLOOD UREA NITROGEN 48 mg/dl (7-18); BUN/CREATININE RATIO 43.7 (10-20); CARBON DIOXIDE 38 mmol/L (21-32); CHLORIDE 101 mmol/L (98-107); GLUCOSE 146 mg/dl (70-99); SODIUM 143 mmol/L (136-145)
[2016-11-21] MEDS: SODIUM CHLORIDE 0.45% 1000ML 1,000 ML IV SCH (20:47)
[2016-11-21] MEDS: CHLORHEXIDINE GLUCONATE 0.12% 480 ML MT SCH (20:54)
[2016-11-21] MEDS: PANTOprazole INJ 40 MG in SYRINGE 0 ML IV SCH (20:54)
[2016-11-21] MEDS ORDERED: FEXOFENADINE HCL 180 MG TAB PO SCH (21:00)
[2016-11-21] MEDS ORDERED: TRIAMTERENE/HCTZ 37.5/25MG TAB PO SCH (21:00)
[2016-11-21 21:01] VITALS: BP 150/68; PULSE 87; O2SAT 95
[2016-11-21] MEDS: MONTELUKAST SOD 10 MG TAB PO SCH (21:19)
[2016-11-21] MEDS: PROPRANOLOL HCL 80 MG TAB PO SCH (21:19)
[2016-11-21 22:00] VITALS: BP 163/70; PULSE 92; O2SAT 95
[2016-11-21 23:00] VITALS: BP 140/65; PULSE 87; O2SAT 97
[2016-11-22] VITALS (13 sets, daily range): BP systolic 115–171; BP diastolic 52–85; PULSE 67–89; TEMP 36.8–37.7; O2SAT 96–98
[2016-11-22] MEDS: PROPOFOL IV EMULSION 10 MG/ML 100 ML VIAL IV PRN ×5 (00:39→20:54)
[2016-11-22] MEDS: IPRATROPIUM BROMIDE HFA INHALER INH SCH ×4 (01:38→20:37)
[2016-11-22] MEDS: ALBUTEROL HFA 8 GM INHALER INH SCH ×4 (01:38→20:37)
[2016-11-22] MEDS: METHYLPREDNISOLONE IV 60 MG in SYRINGE 0 ML IV SCH ×3 (01:51→17:33)
[2016-11-22] MEDS: AZTREONAM IV 1,000 MG in DEXTROSE 5% 100ML 100 ML IV SCH ×2 (01:51→09:23)
--- NOTE | 2016-11-22 04:21 | CRITICAL CARE CONSULTATION ---
DATE OF CONSULTATION: 11/21/2016 CHIEF COMPLAINT: Shortness of breath. HISTORY OF PRESENT ILLNESS: The patient is a 76-year-old woman with a history of severe chronic obstructive pulmonary disease and home oxygen therapy since at least 2005. She has been short of breath for the past 2 weeks according to her , she has felt weak and has not been eating well. Last night she fell, but he denies any injury or hitting her head. She has had much difficulty getting around the house, more so than usual. He denies cough, fevers, chills, nausea, vomiting. Primarily she has complained of shortness of breath. Last night she and her increased her oxygen to 5 liters nasal cannula, and today EMS was called due to worsening shortness of breath. He feels that she has been worse over the past 2 days. He denies that she complained of chest pain or lower extremity pain. She has continued to smoke about half pack of cigarettes per day. The patient was seen in the Emergency Department and was intubated shortly after her arrival. She may have been on CPAP or BiPAP on the way to the hospital via EMS. Her initial venous blood gas showed a pH 7.19, pCO2 118, pO2 72 and HCO3 44. She was given 1 liter of normal saline as well as Levaquin and a chest x-ray revealed some bibasilar infiltrates. She was seen by the hospitalist service and transferred to the intensive care unit. In the intensive care unit, she is sedated on propofol, which was started in the Emergency Department. She is having a lot of paz secretions from the endotracheal tube and some dark red colored NG tube secretions. Her ventilator settings are assist control, rate 20, tidal volume 500, FiO2 50%, and PEEP of 5. PAST MEDICAL HISTORY: Severe chronic obstructive pulmonary disease. 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 She has carried this diagnosis since at least 2003, I do not see any pulmonary function tests in [facility]; hyperlipidemia; atrial fibrillation; hypertension; tobacco use; bronchitis; back problems. Her denies history of OR, stroke or PE. PAST SURGICAL HISTORY: Noncontributory. ALLERGIES: CEFEPIME, DOXYCYCLINE, PENICILLIN, SULFA AND TETRACYCLINE. OUTPATIENT MEDICATIONS: Brovana; aspirin; atorvastatin; budesonide; ferrous sulfate; Reny; guaifenesin; ipratropium bromide; DuoNeb; Levaquin "p.r.n. chest tightness;" lisinopril; montelukast; multivitamin; prednisone 10 mg with food, unclear when her last dose was; propranolol; Daliresp; senna; Spiriva; triamterene/hydrochlorothiazide. All of these have been reviewed. PRESENT MEDICATIONS: Acetaminophen, albuterol, aspirin, atorvastatin, aztreonam, chlorhexidine, subcutaneous heparin, Atrovent, Levaquin, Solu-Medrol, Singulair, morphine, Protonix, propofol, propranolol, Daliresp, senna, vancomycin. SOCIAL HISTORY: She is and has smoked half a pack to 1-1/2 packs of cigarettes per day for many years. She does not drink any alcohol other than a glass of wine in special occasions. FAMILY HISTORY: Significant for father with myocardial infarction. Mother with lung disease. REVIEW OF SYSTEMS: Her denies she has had any complaints of headache, visual changes, focal weakness, difficulty swallowing, cough, congestion, rhinorrhea, diarrhea, bleeding, bruising, melena, syncope. Additional review of systems are negative or noncontributory in a 12-point system other than what is presented in the history of present illness. PHYSICAL EXAMINATION: VITAL SIGNS: Temperature 37.2, heart rate 85, respiratory rate 20, blood pressure 132/62, oxygen saturation 99%. Ventilator settings as previously described. NEUROLOGIC: She will follow commands and has equal hand grasps bilaterally. She moves her lower extremities spontaneously weakly, but not to command. HEENT: Pupils are round bilaterally. Oral examination is deferred due to the endotracheal tube and orogastric tube being in place. NECK: Has no adenopathy, trachea midline. LUNGS: Decreased breath sounds throughout, some rhonchi and rales in the bilateral bases, not moving air very well presently. HEART: Regular rate and rhythm. No murmurs noted. ABDOMEN: Round, soft, mild distention, nontender. No hepatosplenomegaly. EXTREMITIES: Warm. No edema. Radial and dorsalis pedis pulses are 1+. SKIN: Shows very thin wrinkled skin diffusely. LABORATORY DATA: pH 7.4, pCO2 64, pO2 79 and HCO3 39. White blood cell count 10.16, hemoglobin 11.9, hematocrit 40.7, platelets 256. PT, PTT, INR within normal limits. Sodium 144, potassium 5.7, chloride 94, CO2 of 47, BUN 47, creatinine 1.1. Blood sugar 144, calcium 10.7, magnesium 2.5. C-reactive protein 2.79, albumin 3.1, lipase 214. Urinalysis shows 1+ occult blood, positive nitrites., 1-5 white blood cells, 5-10 hyaline casts, 10-20 epithelial cells, and 4+ bacteria. Blood cultures, urine culture and sputum culture are pending. Portable chest x-ray from the Emergency Department was reviewed and shows bibasilar patchy airspace consolidation with small pleural effusions. EKG shows normal sinus rhythm with nonspecific ST-T wave changes and some mildly peaked T waves. IMPRESSION: 1. Acute on chronic hypercapnic hypoxemic respiratory failure. 2. Bibasilar pneumonia, it looks like she might have been taking Levaquin as an outpatient. I will try to ascertain that information from her . 3. Acute exacerbation of chronic obstructive pulmonary disease. 4. Hyperkalemia, unclear significance. The blood sample may have been hemolyzed. 5. Ongoing tobacco use. 6. Chronic steroid use. 7. Possible gastrointestinal bleed with dark pinkish/reddish NG tube return. 8. History of atrial fibrillation, presently in sinus rhythm. 9. History of hypertension. PLAN: 1. NEUROLOGIC: Continue propofol for sedation. Add fentanyl if her blood pressure becomes problematic. 2. PULMONARY: Begin scheduled and p.r.n. bronchodilators. She was ordered Solu-Medrol 60 mg IV q. 8 hours. Support on the ventilator and consider decreasing the tidal volume. Peak airway pressures are about 32. Consider percussion vest for percussion via the bed. 3. CARDIOVASCULAR: Continue propranolol, she is on large doses. I will order low dose IV fluids as well. Rule out myocardial infarction and consider echocardiogram in light of her respiratory failure. 4. INFECTIOUS DISEASES: Continue vancomycin, aztreonam and Levaquin. Consider discontinuing Levaquin and adding azithromycin. Follow cultures. 5. GASTROINTESTINAL: Maintain n.p.o. for now. Protonix IV b.i.d. and watch her H\\T\\H. 6. RENAL: Follow up PRP and potassium. Replete electrolytes if needed. Watch volume status. 7. ENDOCRINE: Check blood sugars while she is on the steroids and consider TSH. 8. HEMATOLOGIC: She is getting subcutaneous heparin for DVT prophylaxis. I will also order SCDs. I discussed her care with her . He is not the best of historians. Hopefully he will know whether or not she takes Levaquin on a regular basis and how long ago she has been on her most recent pulse of steroids. Please call me with any questions or concerns. Critical care time 60 minutes. LUIS
[2016-11-22] MEDS: HEPARIN SOD 5000 UNIT/0.5 ML CARP SQ SCH ×3 (05:32→20:54)
[2016-11-22 06:21] LABS: COMPLETE YES; HEMATOCRIT 34.2 % (37-47); IG% 0.3 %; LYMPH % 8.3 %; LYMPH ABS # 0.92 K/uL (1.2-3.4); MEAN CELL VOLUME 99.4 fL (80-100); MEAN CORPUSCULAR HEMOGLOBIN 30.8 pg (25-34); MEAN PLATELET VOLUME 9.4 fL (7.4-10.4); MONO % 3.7 %; NEUT % 87.7 %; PLATELET COUNT 214 K/uL (130-400); RED BLOOD COUNT 3.44 M/uL (4.2-5.4)
[2016-11-22 06:41] LABS: ALB/GLOB RATIO 0.8 (0.9-2); BUN/CREATININE RATIO 33.2 (10-20); CALCIUM 9.5 mg/dl (8.5-10.1); CREATININE 1.4 mg/dl (0.60-1.20); MAGNESIUM 2.2 mg/dl (1.8-2.4); PHOSPHORUS 1.5 mg/dl (2.5-4.9); POTASSIUM 4.2 mmol/L (3.5-5.1)
--- NOTE | 2016-11-22 07:13 | DIAGNOSTIC IMAGING REPORT ---
CHEST ONE VIEW PORTABLE CLINICAL HISTORY: Respiratory failure. COMPARISON STUDY: Chest radiograph November 21, 2016. FINDINGS: The tip of the endotracheal tube is 4 cm above the unruly. The tip of the nasogastric tube is below the lower aspect of this image but at least within the proximal stomach. There is no pneumothorax. There is no evidence of pulmonary edema. Small bilateral pleural effusions and bibasilar opacities persist. IMPRESSION: 1. Satisfactory positioning of endotracheal and nasogastric tubes. 2. Persistent bibasilar opacities which may reflect consolidation or atelectasis. 3. Suspected small bilateral pleural effusions. Electronically signed by: Cristobal Farah M.D. 11/22/2016 7:12 AM Dictated Date/Time: 11/22/2016 7:10 AM
[2016-11-22 08:57] LABS: ISTAT ALLEN TEST Pass; ISTAT ARTERIAL BLOOD GAS HCO3 37 meq/L (19-24); ISTAT ARTERIAL BLOOD GAS PCO2 41 mmHg (35-46); ISTAT ARTERIAL BLOOD GAS PO2 61 mmHg (80-95); ISTAT ARTERIAL BLOOD GAS pH 7.56 (7.35-7.45); ISTAT CARBON DIOXIDE 38 mEq/l (24-31); ISTAT DELIVERY SYSTEM Ventilator; ISTAT FIO2 40 %; ISTAT PEEP 5; ISTAT RATE 20; ISTAT SITE L Radial; VE 8.9; Vt 500
[2016-11-22] MEDS ORDERED: LISINOPRIL 5 MG TAB PO SCH (09:00)
[2016-11-22] MEDS ORDERED: PANTOprazole INJ 40 MG in SYRINGE 0 ML IV SCH (09:00)
[2016-11-22] MEDS ORDERED: ASPIRIN 81 MG ECTAB PO SCH (09:00)
[2016-11-22] MEDS ORDERED: SODIUM PHOSPHATE 3 MMOL/1 ML INFUSION IV STA (09:05)
--- NOTE | 2016-11-22 09:17 | ECHOCARDIOGRAM REPORT ---
*NOTICE TO RECEIVING REPUBLICAN AGENCY This information is strictly Confidential and protected under [place] law. [place] law prohibits you from making any further disclosure of this information unless further disclosure is expressly permitted by the written consent of the person to whom it pertains or is authorized by law. A general authorization for the release of medical or other information is not sufficient for this purpose. Hospital accepts no responsibility if the information is made available to any other person, INCLUDING THE PATIENT. Interpretation Summary * Name: GEM CONLEY Study Date: 11/22/2016 07:05 AM BP: 122/85 mmHg * [facility] HR: 82 * : 1940 (M/d/yyy) Gender: Female Height: 64 in * Age: 76 yrs Ethnicity: [place] Weight: 170 lb * Ordering Physician: Yadira Alejandro * Referring Physician: No Doctor, Assigned * Performed By: Michael Blackwell RDCS * * Reason For Study: Afib * BSA: 1.8 m2 * -- Conclusions -- * The left ventricle is normal in size. * There is normal left ventricular wall thickness. * All left ventricular wall segments are hyperdynamic, with LV ejection fraction estimated to be 70 %. * The left ventricular wall motion is normal. * Dilated RV with normal function. * The left atrium is moderately dilated. * Aortic valve sclerosis mild, without significant aortic valvular stenosis. * Dilated inferior vena cava with reduced collapsability with sniff indicates an elevated right atrial pressure of 15 mmHg Procedure Details * A complete two-dimensional transthoracic echocardiogram was performed (2D, M-mode, Doppler and color flow Doppler). * The study was technically adequate. Left Ventricle * The left ventricle is normal in size. * There is normal left ventricular wall thickness. * All left ventricular wall segments are hyperdynamic, with LV ejection fraction estimated to be 70 %. * The left ventricular wall motion is normal. Right Ventricle * Dilated RV with normal function. Atria * The left atrium is moderately dilated. * The right atrium is mildly dilated. Mitral Valve * There is mild mitral annular calcification. * There is no mitral regurgitation noted. Tricuspid Valve * The tricuspid valve is not well visualized, but is grossly normal. * No tricuspid regurgitation. Aortic Valve * Aortic valve sclerosis mild, without significant aortic valvular stenosis. * No aortic regurgitation is present. Pulmonic Valve * The pulmonic valve is not well seen, but is grossly normal. Great Vessels * There is aortic root sclerosis/calcification. Pericardium/Pleural * There is no pericardial effusion. Great Vessels * Dilated inferior vena cava with reduced collapsability with sniff indicates an elevated right atrial pressure of 15 mmHg Left Ventricular Diastolic Function * Grade I diastolic dysfunction, (abnormal relaxation pattern). MMode 2D Measurements and Calculations IVSd 0.85 cm LVIDd 4.5 cm LVIDs 3.0 cm LVPWd 0.90 cm IVS/LVPW 0.95 FS 33.7 % EDV(Teich) 93.7 ml ESV(Teich) 35.1 ml EF(Teich) 62.6 % EDV(cubed) 92.7 ml ESV(cubed) 27.1 ml EF(cubed) 70.8 % LV mass(C)d 128.9 grams LV mass(C)dI 70.6 grams/m\S\2 SV(Teich) 58.6 ml SI(Teich) 32.1 ml/m\S\2 SV(cubed) 65.7 ml SI(cubed) 36.0 ml/m\S\2 EPSS 0.58 cm Ao root diam 3.1 cm Ao root area 7.5 cm\S\2 ACS 1.4 cm asc Aorta Diam 3.2 cm LVOT diam 1.9 cm LVOT area 3.0 cm\S\2 LVAd ap4 19.3 cm\S\2 LVLd ap4 7.0 cm EDV(MOD-sp4) 43.0 ml LVAs ap4 8.8 cm\S\2 LVLs ap4 5.9 cm ESV(MOD-sp4) 11.0 ml EF(MOD-sp4) 74.4 % LVAd ap2 19.4 cm\S\2 LVLd ap2 7.2 cm EDV(MOD-sp2) 43.0 ml LVAs ap2 8.3 cm\S\2 LVLs ap2 5.7 cm ESV(MOD-sp2) 10.0 ml EF(MOD-sp2) 76.7 % SV(MOD-sp4) 32.0 ml SI(MOD-sp4) 17.5 ml/m\S\2 SV(MOD-sp2) 33.0 ml SI(MOD-sp2) 18.1 ml/m\S\2 Doppler Measurements and Calculations MV E max israel 102.4 cm/sec MV A max israel 133.9 cm/sec MV E/A 0.76 MV dec time 0.39 sec Ao V2 max 191.8 cm/sec Ao max PG 14.7 mmHg Ao max PG (full) 8.1 mmHg NANETTE(V,A) 2.0 cm\S\2 NANETTE(V,D) 2.0 cm\S\2 LV V1 max PG 6.7 mmHg LV V1 max 129.0 cm/sec PA V2 max 148.0 cm/sec PA max PG 8.8 mmHg
[2016-11-22] MEDS: PANTOprazole INJ 40 MG in SYRINGE 0 ML IV SCH ×2 (09:20→20:51)
[2016-11-22] MEDS: SENNA 8.6 MG TAB PO SCH (09:21)
[2016-11-22] MEDS: ATORVASTATIN 40 MG TAB PO SCH (09:21)
[2016-11-22] MEDS: PROPRANOLOL HCL 80 MG TAB PO SCH ×2 (09:21→20:47)
[2016-11-22] MEDS: ROFLUMILAST 500 MCG TAB PO SCH (09:21)
[2016-11-22] MEDS ORDERED: SODIUM PHOSPHATE INJ 15 MMOL in SODIUM CHLORIDE 0.9% 250ML 250 ML IV SCH (10:00)
[2016-11-22] MEDS: CHLORHEXIDINE GLUCONATE 0.12% 480 ML MT SCH ×2 (10:16→20:52)
--- NOTE | 2016-11-22 11:05 | Family Medicine Progress Note ---
Progress Note Date of Service Nov 22, 2016. Subjective Pt evaluation today including: chart review, lab review, review of studies, conversation w/ information security consultant, review of inpatient medication list Pain: could not assess, pt sedated PO Intake: npo Voiding: ferguson catheter in place Patient seen and examined. Pt sedated with propofol on mechanical ventilator on 40% FIO2. NO acute events overnight. Additional Comments: could not assess ROS due patient being sedated Medications Current Inpatient Medications Medications (Trade) Dose Ordered Sig/Omkar Route Start Time Stop Time Status Last Admin Dose Admin Heparin Sodium (Porcine) (Heparin Sq 5000 Unit/0.5ml) 5,000 unit Q8 SQ 11/21/16 15:45 12/21/16 15:44 11/22/16 05:32 5,000 UNIT Acetaminophen (Tylenol Tab) 650 mg Q4H PRN PO 11/21/16 15:45 12/21/16 15:44 Morphine Sulfate (MoRPHine SULFATE INJ) 2 mg Q2H PRN IV 11/21/16 15:45 12/05/16 15:44 Albuterol/ Ipratropium 3 ml 3 ml Q6 PRN INH 11/21/16 15:45 12/21/16 15:44 Methylprednisolone Sodium Succinate 60 mg/Syringe 0.96 ml @ 1.5 mls/min Q8H IV 11/21/16 18:00 12/21/16 17:59 11/22/16 09:20 1.5 MLS/MIN Levofloxacin/Prmx (Levaquin / D5W/ Premixed D5W) 150 ml @ 100 mls/hr Q2D@1600 IV 11/23/16 16:00 11/28/16 15:59 Aspirin (Ecotrin Tab) 81 mg DAILY PO 11/22/16 09:00 12/22/16 08:59 11/22/16 09:21 81 MG Atorvastatin Calcium (Lipitor Tab) 40 mg DAILY PO 11/22/16 09:00 12/22/16 08:59 11/22/16 09:21 40 MG Montelukast Sodium (Singulair Tab) 10 mg QPM PO 11/21/16 21:00 12/21/16 20:59 11/21/16 21:19 10 MG Propranolol HCl (Inderal Tab) 80 mg BID PO 11/21/16 21:00 12/21/16 20:59 11/22/16 09:21 80 MG Roflumilast (Daliresp Tab) 500 mcg DAILY PO 11/22/16 09:00 12/22/16 08:59 11/22/16 09:21 500 MCG Senna (Senokot Tab) 8.6 mg QAM PO 11/22/16 09:00 12/22/16 08:59 11/22/16 09:21 8.6 MG Levofloxacin (Consult) 1 ea UD PRN N/A 11/21/16 17:15 12/21/16 17:14 Vancomycin HCl 1 ea 1 ea UD PRN N/A 11/21/16 17:15 12/21/16 17:14 Vancomycin HCl 1350 mg/Sodium Chloride 277 ml @ 125 mls/hr DAILY@1800 IV 11/22/16 18:00 11/28/16 17:59 Aztreonam/Dextrose (Azactam IV/D5 100ml) 110 ml @ 100 mls/hr Q8H IV 11/21/16 18:00 11/28/16 17:59 11/22/16 09:23 100 MLS/HR Propofol (Diprivan Iv Emulsion 100ml Vial) 1 dose UD PRN IV 11/21/16 18:19 11/24/16 18:18 11/22/16 10:18 1 DOSE Chlorhexidine Gluconate (Peridex Oral Soln) 15 ml BID MT 11/21/16 21:00 12/21/16 20:59 11/22/16 10:16 15 ML Albuterol (Ventolin Hfa Inhaler) 4 puffs Q6R INH 11/21/16 21:00 12/21/16 20:59 11/22/16 07:45 4 PUFFS Ipratropium [place] (Atrovent Hfa Inhaler) 4 puffs Q6R INH 11/21/16 21:00 12/21/16 20:59 11/22/16 07:45 4 PUFFS Albuterol 4 puffs 4 puffs Q4 PRN INH 11/21/16 19:45 12/21/16 19:44 Pantoprazole Sodium 40 mg/ Syringe 10 ml @ 5 mls/min BID IV 11/21/16 21:00 12/21/16 20:59 11/22/16 09:20 5 MLS/MIN Sodium Chloride 1,000 ml @ 50 mls/hr Q20H IV 11/21/16 20:30 12/21/16 20:29 11/21/16 20:47 50 MLS/HR Sodium Phosphate/ Sodium Chloride (Sodium Phosphate Inj/Nss 250ml) 255 ml @ 88 mls/hr TODAY@1000 IV 11/22/16 10:00 11/22/16 15:00 11/22/16 10:16 88 MLS/HR Objective Vital Signs Date Time Temp Pulse Resp B/P Pulse Ox O2 Delivery O2 Flow Rate FiO2 11/22/16 10:00 37.2 82 16 126/52 96 Mechanical Ventilator 40 11/22/16 08:00 37.6 89 20 139/60 96 Mechanical Ventilator 40 11/22/16 08:00 Mechanical Ventilator 40 11/22/16 08:00 40 11/22/16 07:45 40 11/22/16 06:00 83 20 138/64 97 Mechanical Ventilator 40 11/22/16 05:04 40 11/22/16 05:00 89 20 122/85 96 Mechanical Ventilator 40 11/22/16 04:01 37.7 84 20 147/55 97 Mechanical Ventilator 40 11/22/16 04:00 50 11/22/16 04:00 Mechanical Ventilator 40 11/22/16 02:00 82 23 171/60 98 Mechanical Ventilator 40 11/22/16 01:38 40 11/22/16 00:00 50 11/22/16 00:00 Mechanical Ventilator 40 11/22/16 00:00 37.6 89 23 158/64 98 Mechanical Ventilator 40 11/21/16 23:05 40 11/21/16 23:00 87 27 140/65 97 Mechanical Ventilator 50 11/21/16 22:00 92 20 163/70 95 Mechanical Ventilator 50 11/21/16 21:01 87 20 150/68 95 Mechanical Ventilator 50 11/21/16 20:01 37.6 87 20 171/77 96 Mechanical Ventilator 50 11/21/16 20:00 50 11/21/16 20:00 Mechanical Ventilator 50 11/21/16 19:17 50 11/21/16 18:00 85 20 132/62 99 Mechanical Ventilator 50 11/21/16 17:30 50 11/21/16 17:13 37.2 82 26 93/59 92 Mechanical Ventilator 50 11/21/16 16:45 85 22 156/67 99 11/21/16 16:05 85 22 99 Mechanical Ventilator 11/21/16 16:00 86 20 156/67 100 Mechanical Ventilator 11/21/16 15:55 86 20 100 Mechanical Ventilator 11/21/16 15:50 90 20 100 Mechanical Ventilator 11/21/16 15:45 87 20 161/74 100 Mechanical Ventilator 11/21/16 15:40 86 20 155/57 100 Mechanical Ventilator 11/21/16 15:35 87 20 150/62 100 Mechanical Ventilator 11/21/16 15:30 87 20 137/51 100 Mechanical Ventilator 11/21/16 15:25 89 20 130/59 99 Mechanical Ventilator 11/21/16 15:20 87 20 123/58 99 Mechanical Ventilator 11/21/16 15:15 90 20 112/60 100 Mechanical Ventilator 11/21/16 15:10 89 20 94/51 99 Mechanical Ventilator 11/21/16 15:05 90 20 75/38 99 Mechanical Ventilator 11/21/16 15:00 91/45 Mechanical Ventilator 11/21/16 14:58 96 20 97 Mechanical Ventilator 11/21/16 14:55 84/39 Mechanical Ventilator 11/21/16 14:53 95 16 97 Mechanical Ventilator 11/21/16 14:51 79/41 Mechanical Ventilator 11/21/16 14:50 60 11/21/16 14:50 59/46 Mechanical Ventilator 11/21/16 14:48 96 17 97 Mechanical Ventilator 11/21/16 14:45 71/41 Mechanical Ventilator 11/21/16 14:43 95 17 98 Mechanical Ventilator 11/21/16 14:40 104/53 Mechanical Ventilator 11/21/16 14:38 91 94 Mechanical Ventilator 11/21/16 14:37 148/58 11/21/16 14:33 85 97 CPAP 11/21/16 14:29 140/61 11/21/16 14:28 84 28 97 CPAP 11/21/16 14:23 82 24 95 CPAP 11/21/16 14:18 81 11/21/16 14:18 85 27 97 CPAP 11/21/16 14:10 98 11/21/16 14:08 98 BiPAP 11/21/16 14:08 36.9 163 36 146/58 98 BiPAP 11/21/16 14:08 98 BiPAP Physical Exam Notes: GENERAL: sedated on mechanical ventilator FIO2 40%, no distress, non-toxic EYE EXAM: normal conjunctiva, PERRL and EOM's grossly intact NECK: supple, no adenopathy, non-tender LUNGS: Clear to auscultation. Normal chest wall mechanics HEART: no murmurs, S1 normal and S2 normal ABDOMEN: abdomen soft, non-tender, normo-active bowel sounds, no masses, no rebound or guarding.ss. SKIN: warm/dry, no rashes UPPER EXTREMITIES: upper extremities are grossly normal. LOWER EXTREMITIES: No pitting edema. Laboratory Results Results Past 24 Hours Test 11/21/16 14:42 11/21/16 14:43 11/21/16 14:54 11/21/16 15:35 Range/Units White Blood Count 10.16 4.8-10.8 K/uL Red Blood Count 3.88 4.2-5.4 M/uL Hemoglobin 11.9 12.0-16.0 g/dL Hematocrit 40.7 37-47 % Mean Corpuscular Volume 104.9 80-100 fL Mean Corpuscular Hemoglobin 30.7 25-34 pg Mean Corpuscular Hemoglobin Concent 29.2 32-36 g/dl Platelet Count 256 130-400 K/uL Mean Platelet Volume 9.3 7.4-10.4 fL Neutrophils (%) (Auto) 82.1 % Lymphocytes (%) (Auto) 12.6 % Monocytes (%) (Auto) 4.2 % Eosinophils (%) (Auto) 0.6 % Basophils (%) (Auto) 0.2 % Neutrophils # (Auto) 8.34 1.4-6.5 K/uL Lymphocytes # (Auto) 1.28 1.2-3.4 K/uL Monocytes # (Auto) 0.43 0.11-0.59 K/uL Eosinophils # (Auto) 0.06 0-0.5 K/uL Basophils # (Auto) 0.02 0-0.2 K/uL RDW Standard Deviation 54.7 36.4-46.3 fL RDW Coefficient of Variation 14.3 11.5-14.5 % Immature Granulocyte % (Auto) 0.3 % Immature Granulocyte # (Auto) 0.03 0.00-0.02 K/uL Erythrocyte Sedimentation Rate 47 0-21 mm/hr Prothrombin Time 9.9 9.0-12.0 SECONDS Prothromb Time International Ratio 0.9 0.9-1.1 Activated Partial Thromboplast Time 21.5 21.0-31.0 SECONDS Partial Thromboplastin Ratio 0.8 Venous Blood pH 7.19 7.36-7.41 Venous Blood Partial Pressure CO2 118 38.0-50.0 mmHg Venous Blood Partial Pressure O2 72 mmHg Venous Blood HCO3 44 meq/L Venous Blood Oxygen Saturation 91.1 % Venous Blood Base Excess 11.8 mmol/L Sodium Level 144 136-145 mmol/L Potassium Level 5.7 3.5-5.1 mmol/L Chloride Level 100 98-107 mmol/L Carbon Dioxide Level 47 21-32 mmol/L Anion Gap -3.0 11.0 16-25 mmol/L Blood Urea Nitrogen 47 7-18 mg/dl Creatinine 1.10 0.60-1.20 mg/dl Est Creatinine Clear Calc Drug Dose 43.1 ml/min Estimated GFR () 56.1 Estimated GFR (Non- 48.4 BUN/Creatinine Ratio 42.7 10-20 Random Glucose 144 70-99 mg/dl Calcium Level 10.7 8.5-10.1 mg/dl Phosphorus Level 4.3 2.5-4.9 mg/dl Magnesium Level 2.5 1.8-2.4 mg/dl Total Bilirubin 0.3 0.2-1 mg/dl Aspartate Amino Transf (AST/SGOT) 20 15-37 U/L Alanine Aminotransferase (ALT/SGPT) 20 12-78 U/L Alkaline Phosphatase 55 45-117 U/L Total Creatine Kinase 31 26-192 U/L Creatine Kinase MB < 0.5 0.5-3.6 ng/ml Creatine Kinase MB Ratio 0-3.0 Troponin I < 0.015 0-0.045 ng/ml C-Reactive Protein 2.79 0-0.29 mg/dl Pro-B-Type Natriuretic Peptide 814 0-1800 pg/ml Total Protein 7.4 6.4-8.2 gm/dl Albumin 3.1 3.4-5.0 gm/dl Globulin 4.3 2.5-4.0 gm/dl Albumin/Globulin Ratio 0.7 0.9-2 Lipase 214 73-393 U/L Chemistry Specimen Hemolysis Bedside Hemoglobin 13.3 12.0-16.0 g/dl Bedside Hematocrit 39 37-47 % Bedside Sodium 144 135-144 mEq/L Bedside Potassium 5.7 3.3-5.0 mEq/L Bedside Chloride 94 101-112 mEq/L Bedside Total CO2 > 40 24-31 mEq/l Bedside Blood Urea Nitrogen 48 7-18 mg/dl Bedside Creatinine 1.1 0.6-1.3 mg/dl Bedside Glucose (other) 151 70-99 mg/dl Bedside Ionized Calcium (Adiel) 1.46 1.12-1.32 mmol/l Bedside Lactic Acid Venous 0.37 0.90-1.70 mmol/L Urine Color YELLOW Urine Appearance CLEAR CLEAR Urine pH 6.0 4.5-7.5 Urine Specific [place] 1.018 1.000-1.030 Urine Protein 1+ NEG Urine Glucose (UA) NEG NEG Urine Ketones NEG NEG Urine Occult Blood 1+ NEG Urine Nitrite POS NEG Urine Bilirubin NEG NEG Urine Urobilinogen NEG NEG Urine Leukocyte Esterase NEG NEG Urine WBC (Auto) 1-5 0-5 /hpf Urine RBC (Auto) 0-4 0-4 /hpf Urine Hyaline Casts (Auto) 5-10 0-5 /lpf Urine Epithelial Cells (Auto) 10-20 0-5 /lpf Urine Bacteria (Auto) 4+ NEG Test 11/21/16 17:36 11/21/16 18:27 11/21/16 19:52 11/21/16 20:45 Range/Units Blood Gas Sample Site L Radial Bedside Blood Gas pH (LAB) 7.40 7.35-7.45 Bedside Blood Gas pCO2 (LAB) 64 35-46 mmHg Bedside Blood Gas pO2 (LAB) 79 80-95 mmHg Bedside Blood Gas HCO3 (LAB) 39 19-24 meq/L Bedside Blood Gas Total CO2 > 40 24-31 mEq/l Bedside Blood Gas Base Excess (LAB) 14.0 -9-1.8 meq/L Bedside Blood Gas O2 Saturation 95.0 90-95 % Rd Test Pass Oxygen Delivery Device Ventilator Bedside Oxygen Rate (breaths/min) 20 Blood Gas Minute Ventilation 8.8 Bedside FiO2 50 % Blood Gas Tidal Volume 500 Blood Gas PEEP 5 Bedside Glucose 154 70-90 mg/dl Sodium Level 143 136-145 mmol/L Potassium Level 3.5-5.1 mmol/L Chloride Level 101 98-107 mmol/L Carbon Dioxide Level 38 21-32 mmol/L Anion Gap 4.0 3-11 mmol/L Blood Urea Nitrogen 48 7-18 mg/dl Creatinine 1.10 0.60-1.20 mg/dl Est Creatinine Clear Calc Drug Dose 42.4 ml/min Estimated GFR () 56.1 Estimated GFR (Non- 48.4 BUN/Creatinine Ratio 43.7 10-20 Random Glucose 146 70-99 mg/dl Calcium Level 10.0 8.5-10.1 mg/dl Troponin I < 0.015 0-0.045 ng/ml Influenza Type A Antigen Neg for Influ A NEG Influenza Type B Antigen Neg for Influ B NEG Test 11/21/16 20:48 11/21/16 23:41 11/22/16 05:29 11/22/16 06:18 Range/Units Potassium Level 5.2 4.2 3.5-5.1 mmol/L Bedside Glucose 129 140 70-90 mg/dl White Blood Count 11.10 4.8-10.8 K/uL Red Blood Count 3.44 4.2-5.4 M/uL Hemoglobin 10.6 12.0-16.0 g/dL Hematocrit 34.2 37-47 % Mean Corpuscular Volume 99.4 80-100 fL Mean Corpuscular Hemoglobin 30.8 25-34 pg Mean Corpuscular Hemoglobin Concent 31.0 32-36 g/dl Platelet Count 214 130-400 K/uL Mean Platelet Volume 9.4 7.4-10.4 fL Neutrophils (%) (Auto) 87.7 % Lymphocytes (%) (Auto) 8.3 % Monocytes (%) (Auto) 3.7 % Eosinophils (%) (Auto) 0.0 % Basophils (%) (Auto) 0.0 % Neutrophils # (Auto) 9.74 1.4-6.5 K/uL Lymphocytes # (Auto) 0.92 1.2-3.4 K/uL Monocytes # (Auto) 0.41 0.11-0.59 K/uL Eosinophils # (Auto) 0.00 0-0.5 K/uL Basophils # (Auto) 0.00 0-0.2 K/uL RDW Standard Deviation 51.8 36.4-46.3 fL RDW Coefficient of Variation 14.2 11.5-14.5 % Immature Granulocyte % (Auto) 0.3 % Immature Granulocyte # (Auto) 0.03 0.00-0.02 K/uL Sodium Level 143 136-145 mmol/L Chloride Level 99 98-107 mmol/L Carbon Dioxide Level 36 21-32 mmol/L Anion Gap 8.0 3-11 mmol/L Blood Urea Nitrogen 46 7-18 mg/dl Creatinine 1.40 0.60-1.20 mg/dl Est Creatinine Clear Calc Drug Dose 33.3 ml/min Estimated GFR () 41.9 Estimated GFR (Non- 36.2 BUN/Creatinine Ratio 33.2 10-20 Random Glucose 138 70-99 mg/dl Calcium Level 9.5 8.5-10.1 mg/dl Phosphorus Level 1.5 2.5-4.9 mg/dl Magnesium Level 2.2 1.8-2.4 mg/dl Total Bilirubin 0.4 0.2-1 mg/dl Aspartate Amino Transf (AST/SGOT) 11 15-37 U/L Alanine Aminotransferase (ALT/SGPT) 15 12-78 U/L Alkaline Phosphatase 43 45-117 U/L Total Protein 6.3 6.4-8.2 gm/dl Albumin 2.7 3.4-5.0 gm/dl Globulin 3.6 2.5-4.0 gm/dl Albumin/Globulin Ratio 0.8 0.9-2 Test 11/22/16 08:46 11/22/16 12:24 Range/Units Blood Gas Sample Site L Radial Bedside Blood Gas pH (LAB) 7.56 7.35-7.45 Bedside Blood Gas pCO2 (LAB) 41 35-46 mmHg Bedside Blood Gas pO2 (LAB) 61 80-95 mmHg Bedside Blood Gas HCO3 (LAB) 37 19-24 meq/L Bedside Blood Gas Total CO2 38 24-31 mEq/l Bedside Blood Gas Base Excess (LAB) 14.0 -9-1.8 meq/L Bedside Blood Gas O2 Saturation 93.0 90-95 % Rd Test Pass Oxygen Delivery Device Ventilator Bedside Oxygen Rate (breaths/min) 20 Blood Gas Minute Ventilation 8.9 Bedside FiO2 40 % Blood Gas Tidal Volume 500 Blood Gas PEEP 5 Bedside Glucose 161 70-90 mg/dl Microbiology Results 11/21/16 Blood Culture, Received Pending 11/21/16 Blood Culture, Received Pending 11/22/16 Urine Culture, Received Pending 11/21/16 Urine Culture - Final, Complete THREE TYPES OF ORGANISMS PRESENT, ALL... Assessment and Plan 76 yo F w/ hx of COPD on HOME O2 @ 5L p/w Acute worsening of SOB with acute hypoxic Resp. failure prior to arrival with a VBG showing CO2 of 47 in addition to generalized weakness, Hx of fall , and chronic LE edema. Acute on Chronic Respiratory Failure - Differential diagnoses includes but is not limited to pneumonia, bronchitis, COPD exacerbation, pneumothorax, pulmonary embolism, congestive heart failure, acute coronary syndrome - likely due to COPD exacerbation in the setting of Pneumonia based on CXR showing bibasilar consolidation - EKG, Troponin unremarkable for ACS, BNP of 814, LE Edema could indicated possible CHF , F/u Echo - Patient currently intubated on mechanical ventilator, maintaining normal oxygen saturation - Started Vancomycin, Levaquin due to PCN, Cephalosporin allergy 11/21 - spoke with pharmacy that cephalosporin allergy was simply a GI S.E. - discussed with Dr. Alejandro about adjusting abx regimen as patient came in with po Levaquin. - currently on Vancomycin, Azithromycin, Cefepime 11/22 - c/w IV Solu-medrol 60 mg TID duonebs prn Bibasilar consolidation - Pneumonia vs. Pneumonitis - Vancomycin, Levaquin as above - Sputum cx: normal rian - blood cx's pending, urine cx pending Atrial Fibrillation - rate is controlled - restart Propanolol 80 mg daily - not on anticoagulation Hyperkalemia -improved K 5.7 -->4.2 -Patient on IV Fluids -Recheck K in am - Keep Hold on Triamterene Hyperlipidemia -restart Lipitor HTN -Triamterene held c/w Lisinopril, Propranolol DVT Prophylaxis - Heparin Resident Physician Supervision Note: I interviewed and examined the patient. Discussed with Lewis Falk and agree with findings and plan as documented in the note. Any exceptions or clarifications are listed here: None Pt sedate on the ventilator copd exacerbation and acute hypoxic respiratory failure vss, ventilated with stable oxygensturation treat for gram negative pneumonia, vent management per icu attending continue bronchodialators and steroids Documented By: Mustapha Sandoval Continued [facility] stay due to: multiple IV medications needed Discharge planning: home Resident Tracking Resident Involvement: Resident Care Provided Care Provided: Adult ED
[2016-11-22] MEDS ORDERED: CEFEPIME IV 1,000 MG in DEXTROSE 5% 100ML 100 ML IV SCH (13:15)
[2016-11-22] MEDS ORDERED: CEFEPIME CONSULT ACTIVE PRN ×2 (13:30)
[2016-11-22] MEDS: AZITHROMYCIN IV 500 MG in DEXTROSE 5% 250ML 250 ML IV SCH (14:06)
--- NOTE | 2016-11-22 15:44 | CRITICAL CARE PROGRESS NOTE ---
DATE: 11/22/2016 GENERAL INFORMATION: This is a 76-year-old woman with a history of severe chronic obstructive pulmonary disease, who was admitted to the intensive care unit yesterday after being evaluated in the Emergency Department. She was intubated shortly after arrival to the ED secondary to shortness of breath and hypercapnia with a pCO2 of 118 on her venous blood gas. She is being treated for pneumonia as well as COPD exacerbation. Her care was discussed in detail with her bedside nurse, Grecia. She is having a small to moderate amount of thick yellow secretions today. She remains on a propofol infusion at 20 mcg per kilogram per minute. She has not had a bowel movement. OBJECTIVE: VITAL SIGNS: Maximum temperature 37.6, heart rate 80s, respiratory rate 20, blood pressure 127-158/60s-80s, and oxygen saturation 96%. VENTILATOR SETTINGS: Assist control rate 16, tidal volume 500, FiO2 at 40%, and PEEP 5. 24-hour fluid balance is positive 1.5 liters. NEUROLOGIC: She will open her eyes and follow simple commands, moving all 4 extremities. LUNGS: Rhonchorous and coarse bilaterally. HEART: Regular rate and rhythm. ABDOMEN: Round, soft, nontender, and nondistended. EXTREMITIES: Warm with very flabby and thin skin. LABORATORY DATA: White blood cell count 11.1, hemoglobin 10.6, hematocrit 34.2, and platelets 214. ABG, pH 7.56, pCO2 of 41, pO2 of 61 and HCO3 of 37. Sodium 143, potassium 4.2, chloride 99, CO2 of 36, BUN 46, creatinine 1.4, blood sugar 138, phosphorus 1.5, and calcium 9.5. AST 11 and alkaline phosphatase 43. Total protein 6.3 and albumin 2.7. Influenza type A and B negative. Urinary legionella antigen pending. Sputum culture preliminary is light normal rian. Gram stain has many organisms, both gram positive and gram negative. Portable chest x-ray from this morning was reviewed and shows persistent bibasilar opacities and small bilateral pleural effusions. MEDICATIONS AND INFUSIONS: Acetaminophen, albuterol, aspirin, atorvastatin, azithromycin, cefepime, subcutaneous heparin, Atrovent, Solu-Medrol, Singulair, morphine, Protonix, propofol, propranolol, roflumilast, senna, normal saline, sodium phosphate, and vancomycin. IMPRESSION: 1. Acute on chronic hypercapnic hypoxemic respiratory failure. 2. Bibasilar pneumonia. 3. Acute exacerbation of chronic obstructive pulmonary disease. 4. Anemia, likely dilutional. No ongoing signs of acute GI bleed. 5. Acute kidney injury, possibly related to sepsis. 6. History of atrial fibrillation. 7. Ongoing tobacco use. 8. Hyperkalemia, improved. 9. Chronic steroid use. 10. Possible gastrointestinal bleed, seems better and the NG tubing has become clear after being rust colored. 11. History of hypertension, blood pressures are relatively well controlled. PLAN: NEUROLOGIC: Sedation vacation and consider spontaneous breathing trial. PULMONARY: Continue intravenous corticosteroids, bronchodilators and ventilatory support. Her respiratory rate was adjusted this morning and we can bring her tidal volume down as well. CARDIOVASCULAR: Continue aspirin. GASTROINTESTINAL: Continue Protonix b.i.d. and follow blood counts. Begin tube feeds today. I will also add some Colace and senna. RENAL: IV fluids have been ordered. INFECTIOUS DISEASE: Change her aztreonam to Cefepime after seeing she had many gram negative rods in her sputum. It appears that she has been on Levaquin as an outpatient, so I changed her to azithromycin for atypical coverage. A most recent review of her sputum culture data shows no growth on the culture. Discontinue vancomycin. ENDOCRINE: Continue to follow blood sugars while she is on the intravenous steroids. Followup echocardiogram. I discussed her care with her , who was in the room when I examined her. Critical care time 40 minutes.
[2016-11-22] MEDS ORDERED: CEFEPIME IV 2000 MG in DEXTROSE 5% 100ML IV SCH (16:00)
[2016-11-22] MEDS: SODIUM CHLORIDE 0.45% 1000ML 1,000 ML IV SCH (17:33)
[2016-11-22] MEDS ORDERED: VANCOMYCIN INJ 1,350 MG in SODIUM CHLORIDE 0.9% 250ML 250 ML IV SCH (18:00)
[2016-11-22 18:56] LABS: HEMATOCRIT 33.6 % (37-47)
[2016-11-22] MEDS: MONTELUKAST SOD 10 MG TAB PO SCH (20:52)
[2016-11-23] VITALS (11 sets, daily range): BP systolic 112–157; BP diastolic 39–80; PULSE 62–89; TEMP 36.8–37.3; O2SAT 95–97
[2016-11-23] MEDS: METHYLPREDNISOLONE IV 60 MG in SYRINGE 0 ML IV SCH (02:03)
[2016-11-23] MEDS: PROPOFOL IV EMULSION 10 MG/ML 100 ML VIAL IV PRN (02:04)
[2016-11-23] MEDS: IPRATROPIUM BROMIDE HFA INHALER INH SCH ×3 (02:10→19:57)
[2016-11-23] MEDS: ALBUTEROL HFA 8 GM INHALER INH SCH ×3 (02:10→19:58)
[2016-11-23 06:28] LABS: COMPLETE YES; HEMATOCRIT 34.8 % (37-47); IG% 0.4 %; LYMPH % 5.5 %; LYMPH ABS # 0.71 K/uL (1.2-3.4); MEAN CELL VOLUME 96.7 fL (80-100); MEAN CORPUSCULAR HEMOGLOBIN 30.6 pg (25-34); MEAN CORPUSCULAR HGB CONC 31.6 g/dl (32-36); MEAN PLATELET VOLUME 9.5 fL (7.4-10.4); MONO % 5.1 %; PLATELET COUNT 217 K/uL (130-400); WHITE BLOOD COUNT 12.92 K/uL (4.8-10.8)
[2016-11-23 07:13] LABS: ALB/GLOB RATIO 0.7 (0.9-2); BUN/CREATININE RATIO 35.2 (10-20); CALCIUM 9.2 mg/dl (8.5-10.1); CREATININE 1.5 mg/dl (0.60-1.20); MAGNESIUM 2.3 mg/dl (1.8-2.4); PHOSPHORUS 5.4 mg/dl (2.5-4.9); POTASSIUM 3.5 mmol/L (3.5-5.1)
--- NOTE | 2016-11-23 07:34 | DIAGNOSTIC IMAGING REPORT ---
SINGLE VIEW CHEST CLINICAL HISTORY: Respiratory failure. Pneumonia. FINDINGS: An AP, portable, upright chest radiograph is compared to study dated 11/22/2016 and correlated with chest CT dated 06/10/2012. The examination is significantly degraded by portable technique and patient rotation. Endotracheal and enteric tubes are unchanged in position. The heart is normal for projection and there is atherosclerotic calcification of the thoracic aorta. Pulmonary vascular congestion is suggested. Emphysema and chronic interstitial thickening are similar to previous. There are layering pleural effusions with bibasilar consolidation. A calcified granuloma is noted at the right apex. No pneumothorax is seen. The skeletal structures are osteopenic. The bony thorax is grossly intact. IMPRESSION: 1. Stable lines and tubes. 2. Emphysema. 3. Pulmonary vascular congestion is suspected. 4. There is bibasilar patchy airspace consolidation with small pleural effusions. The pleural effusions appear slightly increased in size from previous. Electronically signed by: Darci Hobbs M.D. 11/23/2016 7:33 AM Dictated Date/Time: 11/23/2016 7:31 AM
[2016-11-23] MEDS: PANTOprazole INJ 40 MG in SYRINGE 0 ML IV SCH (08:32)
[2016-11-23] MEDS: PROPRANOLOL HCL 80 MG TAB PO SCH ×2 (08:32→21:01)
[2016-11-23] MEDS: SENNA 8.6 MG TAB PO SCH (08:33)
[2016-11-23] MEDS: ROFLUMILAST 500 MCG TAB PO SCH (08:33)
[2016-11-23] MEDS: ATORVASTATIN 40 MG TAB PO SCH (08:33)
[2016-11-23] MEDS: CHLORHEXIDINE GLUCONATE 0.12% 480 ML MT SCH ×2 (08:37→21:02)
[2016-11-23] MEDS: ASPIRIN 81 MG CHEW PO SCH (08:37)
[2016-11-23] MEDS ORDERED: FUROSEMIDE INJ 40 MG in SYRINGE 0 ML IV ONE (09:00)
[2016-11-23] MEDS ORDERED: POTASSIUM CHLORIDE 20 MEQ/15 ML UDC NG ONE (09:00)
--- NOTE | 2016-11-23 09:12 | Family Medicine Progress Note ---
Progress Note Date of Service Nov 23, 2016. Subjective Pt evaluation today including: conversation w/ patient, physical exam, chart review, lab review Patient awake, alert but intubated. Responsive to questions via nodding/shaking her head, and hand gestures. Able to follow simple commands. Denies any current pain or discomfort, including CP, dyspnea, abdominal pain. Indicates that she would like to be extubated. Constitutional: No fever Respiratory: No dyspnea at rest, No shortness of breath Cardiovascular: No chest pain Abdomen: No nausea, No pain Objective Vital Signs Date Time Temp Pulse Resp B/P Pulse Ox O2 Delivery O2 Flow Rate FiO2 11/23/16 08:00 36.8 64 16 152/80 96 Mechanical Ventilator 35 11/23/16 08:00 35 11/23/16 08:00 Mechanical Ventilator 35 11/23/16 06:58 35 11/23/16 06:00 67 16 157/58 95 Mechanical Ventilator 35 11/23/16 05:15 35 11/23/16 04:00 37.3 62 18 145/59 97 Mechanical Ventilator 35 11/23/16 04:00 35 11/23/16 04:00 Mechanical Ventilator 35 11/23/16 02:10 35 11/23/16 02:00 63 16 129/53 97 Mechanical Ventilator 35 11/23/16 00:01 37.1 63 19 133/58 96 Mechanical Ventilator 35 11/22/16 23:59 Mechanical Ventilator 35 11/22/16 23:59 35 11/22/16 23:20 35 11/22/16 22:00 69 16 115/54 98 Mechanical Ventilator 40 11/22/16 20:45 40 11/22/16 20:00 Mechanical Ventilator 40 11/22/16 20:00 36.8 67 21 153/61 97 Mechanical Ventilator 11/22/16 20:00 40 11/22/16 18:00 36.9 79 18 148/63 96 Mechanical Ventilator 40 11/22/16 16:00 40 11/22/16 16:00 37.0 76 21 137/56 97 Mechanical Ventilator 40 11/22/16 16:00 Mechanical Ventilator 40 11/22/16 14:00 37.6 73 18 135/56 97 Mechanical Ventilator 40 11/22/16 13:45 40 11/22/16 12:00 Mechanical Ventilator 40 11/22/16 12:00 40 11/22/16 12:00 37.0 89 16 134/55 97 Mechanical Ventilator 40 11/22/16 11:10 40 11/22/16 10:00 37.2 82 16 126/52 96 Mechanical Ventilator 40 Physical Exam General Appearance: WD/WN, no apparent distress, + pertinent finding (intubated ) Eyes: PERRL ENT: hearing grossly normal Neck: supple Respiratory/Chest: normal breath sounds, no respiratory distress, no accessory muscle use, + pertinent finding (Course breath sounds) Cardiovascular: regular rate, rhythm, no edema, no murmur Abdomen: normal bowel sounds, non tender, soft Extremities: no pedal edema, no calf tenderness Neurologic/Psychiatric: alert, normal mood/affect Skin: normal color, warm/dry, no rash Laboratory Results Results Past 24 Hours Test 11/22/16 12:24 11/22/16 16:13 11/22/16 18:19 11/22/16 18:48 Range/Units Bedside Glucose 161 208 70-90 mg/dl Phosphorus Level 4.9 2.5-4.9 mg/dl Hemoglobin 10.7 12.0-16.0 g/dL Hematocrit 33.6 37-47 % Test 11/23/16 00:16 11/23/16 06:22 Range/Units Bedside Glucose 170 70-90 mg/dl White Blood Count 12.92 4.8-10.8 K/uL Red Blood Count 3.60 4.2-5.4 M/uL Hemoglobin 11.0 12.0-16.0 g/dL Hematocrit 34.8 37-47 % Mean Corpuscular Volume 96.7 80-100 fL Mean Corpuscular Hemoglobin 30.6 25-34 pg Mean Corpuscular Hemoglobin Concent 31.6 32-36 g/dl Platelet Count 217 130-400 K/uL Mean Platelet Volume 9.5 7.4-10.4 fL Neutrophils (%) (Auto) 89.0 % Lymphocytes (%) (Auto) 5.5 % Monocytes (%) (Auto) 5.1 % Eosinophils (%) (Auto) 0.0 % Basophils (%) (Auto) 0.0 % Neutrophils # (Auto) 11.50 1.4-6.5 K/uL Lymphocytes # (Auto) 0.71 1.2-3.4 K/uL Monocytes # (Auto) 0.66 0.11-0.59 K/uL Eosinophils # (Auto) 0.00 0-0.5 K/uL Basophils # (Auto) 0.00 0-0.2 K/uL RDW Standard Deviation 52.2 36.4-46.3 fL RDW Coefficient of Variation 14.6 11.5-14.5 % Immature Granulocyte % (Auto) 0.4 % Immature Granulocyte # (Auto) 0.05 0.00-0.02 K/uL Sodium Level 143 136-145 mmol/L Potassium Level 3.5 3.5-5.1 mmol/L Chloride Level 100 98-107 mmol/L Carbon Dioxide Level 34 21-32 mmol/L Anion Gap 9.0 3-11 mmol/L Blood Urea Nitrogen 53 7-18 mg/dl Creatinine 1.50 0.60-1.20 mg/dl Est Creatinine Clear Calc Drug Dose 31.1 ml/min Estimated GFR () 38.5 Estimated GFR (Non- 33.3 BUN/Creatinine Ratio 35.2 10-20 Random Glucose 157 70-99 mg/dl Calcium Level 9.2 8.5-10.1 mg/dl Phosphorus Level 5.4 2.5-4.9 mg/dl Magnesium Level 2.3 1.8-2.4 mg/dl Total Bilirubin 0.4 0.2-1 mg/dl Aspartate Amino Transf (AST/SGOT) 10 15-37 U/L Alanine Aminotransferase (ALT/SGPT) 14 12-78 U/L Alkaline Phosphatase 45 45-117 U/L Total Protein 6.3 6.4-8.2 gm/dl Albumin 2.5 3.4-5.0 gm/dl Globulin 3.8 2.5-4.0 gm/dl Albumin/Globulin Ratio 0.7 0.9-2 Microbiology Results 11/22/16 Urine Culture, Received Pending Assessment and Plan 76 yo F w/ hx of COPD on home O2 @ 5L p/w acute worsening of SOB with acute hypoxic respiratory failure prior to arrival with VBG showing CO2 of 47 in addition to generalized weakness. H/o fall, and chronic LE edema. Acute on Chronic Respiratory Failure - likely due to COPD exacerbation in the setting of pneumonia based on CXR showing bibasilar consolidation - Patient currently off sedation but remains intubated on mechanical ventilator , maintaining normal oxygen saturation - Failed weaning trial today; plans to continue current ventilator settings with re-attempt tomorrow COPD Exacerbation - Continue Duoneb q6h - Solumedrol reduced to 40 mg BID - Wean oxygen to maintain sats 88-92%; Baseline oxygen requirements 4L by NC - Continue Tylenol 650mg q4h and Morphine 2mg q2h PRN for pain Bibasilar consolidation - Sputum cx: normal rian, blood cx negative, urine cx prelim negative. Cephalosporin allergy 11/21 was a GI S/E. - Continue Azithromycin, switch cefepime to ceftriaxone. Currently day 2 of 7. Atrial Fibrillation - rate is controlled - Continue Propanolol 80mg daily - Not on anticoagulation, aspirin restarted Hypokalemia - Ongoing diuresis with KCL supplementation - Monitor BMP and replace K+ as necessary Hyperlipidemia - Continue Atorvastatin 40mg daily HTN - Hold Lisinopril and Triamtrene/HCTZ due to KARINA - Continue Propranolol DVT/GI Prophylaxis - Continue Heparin drip, SCD and TEDs (Lovenox contra-indicated due to KARINA) - Protonix 40 mg IV daily Code status - Full Code Dispo - Patient arrives to ICU from home; will re-assess needs following PT/OT evaluations post extubation Continued [facility] stay due to: multiple IV medications needed Discharge planning: uncertain History Resident Physician Supervision Note: I was present with Dr. Glaser during the history and exam. I discussed the case with the resident and agree with the findings and plan as documented in the note. Any exceptions or clarifications are listed here. Pt seen and examined at bedside in ICU. On vent, unsedated. Patient answering questions appropriately with nodding and hand gestures. Reports no pain at present, feeling generally improved from previous. Reports no f/c, n/v, VILLALOBOS, lightheadedness. General Appearance: other (intubated) Respiratory: chest non-tender, decreased breath sounds (throughout), wheezing ( scattered), other (on vent) Cardiovascular: normal peripheral pulses, regular rate, rhythm, no murmur Assessment/Plan 76 y/o female h/o COPD presents w/ ARF 2/2 CAP and COPD exacerbation COPD exacerbation w/ emphysema, VDRF - continue duonebs, solumedrol. Customer Sales Specialist management appreciated. CAP - Continue azithromycin and cefepime (day 2) Pulmonary congestion in setting of KARINA - rec'd lasix bolus x 1, Cr 1.5 today, trend BMP HTN - continue propranolol, holding lisinopril, Triamterene/HCTZ Hyperglycemia on steroids - ISS, FSBS monitoring Resident Tracking Resident Involvement: Resident Care Provided Care Provided: Adult Hospital Medicine
[2016-11-23] MEDS: FIBERSOURCE HN 1000ML BAG OG PRN ×2 (09:37)
[2016-11-23] MEDS ORDERED: PANTOprazole INJ 40 MG in SYRINGE 0 ML IV SCH (11:00)
[2016-11-23] MEDS: INSULIN ASPART 100 UNITS/ML 3 ML PEN SC SCH ×2 (13:49→17:41)
--- NOTE | 2016-11-23 13:56 | Critical Care Progress Note ---
Critical Care Progress Note Date of Service Nov 23, 2016. ICU Day ICU Day Number: [address] Krause Subjective Patient awakens to command Able to follow simple commands; gives thumbs up and wiggles toes Denies any pain Appears comfortable overall Objective Constitutional: Vital signs as above were reviewed. Eyes: Pupils equal, round, and reactive to light. Extraocular muscles are intact. No proptosis. No photophobia. ENT: Mucous membranes are moist. Oropharynx is clear. No sinus tenderness. TMs are clear bilaterally. OG tube in place Cardiovascular: Heart with a regular rate and rhythm, no murmurs or gallops. No pedal edema appreciated. Respiratory: Coarse breath sounds bilaterally; good air entry. No accessory muscle use. No retractions. No increased work of breathing. GI: Abdomen soft, nontender, nondistended. Normal active bowel sounds. No abdominal hernias appreciated. No rebound. No guarding. : No CVA tenderness appreciated. Musculoskeletal: No midline cervical or vertebral tenderness. No gross deformities. No bony tenderness. No calf swelling or tenderness. Integumentary: Warm, dry, no rashes appreciated. Neurological: Patient awakens to command. Follows simple commands. Lymph: No cervical lymphadenopathy appreciated. Assessment & Plan (1) Hyperglycemia (2) Chronic intermittent steroid use (3) KARINA (acute kidney injury) (4) COPD exacerbation (5) Acute respiratory failure 76 year old female with the following problems - Acute COPD exacerbation - Emphysema - Community Acquired PNA - Fluid Overload/Pulmonary congestion - Chronic Hypertension - Acute Kidney Injury - Risk of stress gastritis - Risk for electrolyte abnormalities secondary to diuresis Our plan for her is as follows: NEUROLOGICAL - GCS: 14 - Sedation: Propofol infusion 35 mcg/kg/hr; recommend daily sedation holiday to allow for adequate spontaneous breathing trials - RASS: 0 - Pain regimen: Continue Tylenol 650 mg q4 hr Continue Morphine 2 mg q 2 hours PRN for pain CARDIAC - BP: 145/59 MAP: 70 - Fluids: 0.45 NSS @ 50 ml/hr; to be discontinued - Vasopressor support: None - Hypertension Hold Lisinopril and Triamtrene/HCTZ due to KARINA Continue Propranolol RESPIRATORY - RR: 16-18 SpO2: 95-97% - Ventilator settings: Volume A/C; RR 16; Vt 500 ml; PEEP 5; FiO2 35% - AM CXR: reports pulmonary congestion with mild progression of bibasilar pleural effusions - COPD Exacerbation Continue Duoneb q 6 hours Reduce Solumedrol to 40 mg BID Failed weaning trial today; Contine A/C mode additional 24 hours; re-attempt tomorrow Goals: Sat 88-92%; Baseline oxygen requirements 4 L by nasal cannula GASTROINTSTINAL - Diet: Start Tube feeds with Fibersource; goal caloric intake; Goal 50 kCal/hr - GI Prophylaxis: Protonix 40 mg IV daily Risk of stress gastritis due to NPO status; will start tube feeds today and continue PPI prophylaxis - Bowel regimen: No BM since admission; continue to follow RENAL//ENDOCRINE - Fluid Balance 24 hour: In 2200 ml / Out 1220 ml / Net + 1000 ml Cumulative: In 4200 ml / Out 1800 ml / Net 2500 ml Patient is net positive for 24 hours and cumulative; goal negative fluid balance; Lasix 40 mg IV one now; re-assess tomorrow - 24-hour UO: 0.36 ml/hr - Cr: 1.5 (Baseline: 0.9-1.1) - Electrolytes: No abnormalities At risk for Hypokalemia; K 3.5 and patient getting Lasix today 60 mEq KCl IV - Acute Kidney Injury - Cr. 1.5 - BUN/Cr ratio narrowing; possible intra-renal etiology - Rule out tubulointerstitial nephritis; Repeat UA with urine eosinophils - BSG: Start Sliding Scale; patient is acutely ill on steroids which will be weaned Goal 140-180; CF 25; No carb ratio HEME/INFECTIOUS DISEASE - Tmax: 37.6 WBC: 12 (up slightly from 11) - Hb/Hct 11/34 respectively; stable - Antibiotics: Azithromycin + Cefepime - Community Acquired PNA No hospitalizations since Discontinue Cefepime and start Rocephin instead Continue course x 7 days total; currently day 2 - DVT Prophylaxis Heparin 5000 s.c q 8 hours; SCD and TEDs Lovenox contra-indicated due to KARINA LINES/IV ACCESS - Right forearm 22 G - Right forearm 20 G CODE STATUS - Full Code DISPOSITION - OT/PT: Currently intubated; once anticipating extubation; will have PT/OT orders placed - Patient arrives to ICU from home; will re-assess needs following PT/OT evaluations Resident Physician Supervision Note: Dr. Carmona was resident physician during care of patient. I separately evaluated patient and did history and exam. I discussed the case with the resident and generally agree with the findings and plan. Patient continues to adequately diurese, respiratory placed on second CPAP trial is a thought patient may have been oversedated when she failed initially, RSBI went in to greater than 150, will attempt tomorrow. I have personally spent 45 minutes of critical care time in the direct management of this patient. This is a life/limb threatening event. This includes time spent evaluating patient, direct bedside care, chart review, placing orders, interpretation of diagnostic studies, discussion with consultants, patient, and family members, as well as other required patient management activities. This time is exclusive of all separately billable procedures, and teaching time and separate from and in addition to any other critical care service time. Documented By: Elie Kruase DO Consults & Procedures Consultants: None Procedures: None Data Medications: Current Inpatient Medications Medications (Trade) Dose Ordered Sig/Omkar Route Start Time Stop Time Status Last Admin Dose Admin Heparin Sodium (Porcine) (Heparin Sq 5000 Unit/0.5ml) 5,000 unit Q8 SQ 11/21/16 15:45 12/21/16 15:44 11/22/16 20:54 5,000 UNIT Acetaminophen (Tylenol Tab) 650 mg Q4H PRN PO 11/21/16 15:45 12/21/16 15:44 Morphine Sulfate (MoRPHine SULFATE INJ) 2 mg Q2H PRN IV 11/21/16 15:45 12/05/16 15:44 Albuterol/ Ipratropium (Duoneb) 3 ml Q6 PRN INH 11/21/16 15:45 12/21/16 15:44 Atorvastatin Calcium (Lipitor Tab) 40 mg DAILY PO 11/22/16 09:00 12/22/16 08:59 11/23/16 08:33 40 MG Montelukast Sodium (Singulair Tab) 10 mg QPM PO 11/21/16 21:00 12/21/16 20:59 11/22/16 20:52 10 MG Propranolol HCl (Inderal Tab) 80 mg BID PO 11/21/16 21:00 12/21/16 20:59 11/23/16 08:32 80 MG Roflumilast (Daliresp Tab) 500 mcg DAILY PO 11/22/16 09:00 12/22/16 08:59 11/23/16 08:33 500 MCG Senna (Senokot Tab) 8.6 mg QAM PO 11/22/16 09:00 12/22/16 08:59 11/23/16 08:33 8.6 MG Chlorhexidine Gluconate (Peridex Oral Soln) 15 ml BID MT 11/21/16 21:00 12/21/16 20:59 11/23/16 08:37 15 ML Albuterol (Ventolin Hfa Inhaler) 4 puffs Q6R INH 11/21/16 21:00 12/21/16 20:59 11/23/16 06:58 4 PUFFS Ipratropium [place] (Atrovent Hfa Inhaler) 4 puffs Q6R INH 11/21/16 21:00 12/21/16 20:59 11/23/16 06:58 4 PUFFS Albuterol 4 puffs 4 puffs Q4 PRN INH 11/21/16 19:45 12/21/16 19:44 Azithromycin/ Dextrose (Zithromax IV/D5 250ml) 255 ml @ 125 mls/hr DAILY@1400 IV 11/22/16 14:00 11/29/16 13:59 11/22/16 14:06 125 MLS/HR Cefepime HCl (Consult) 1 ea UD PRN N/A 11/22/16 13:30 12/22/16 13:29 Aspirin (Aspirin Chew) 81 mg DAILY PO 11/23/16 09:00 12/23/16 08:59 11/23/16 08:37 81 MG Enteral Nutritional Formula 1000 ml 1,000 ml UD PRN OG 11/23/16 09:00 12/23/16 08:59 11/23/16 09:37 1,000 ML Methylprednisolone Sodium Succinate 40 mg/Syringe 0.64 ml @ 1.5 mls/min Q12H IV 11/23/16 14:00 12/23/16 13:59 Pantoprazole Sodium/Syringe (Protonix Inj/ Syringe) 10 ml @ 5 mls/min DAILY@1100 IV 11/23/16 11:00 12/23/16 10:59 Future hold Midazolam HCl 2 mg 2 mg Q2H PRN IV 11/23/16 09:15 12/23/16 09:14 Ceftriaxone Sodium/Dextrose (Rocephin Inj/D5 50ml) 60 ml @ 120 mls/hr DAILY@1400 IV 11/23/16 14:00 11/30/16 13:59 Insulin Aspart (novoLOG ASPART) SLIDING SCALE Q6 SC 11/23/16 13:00 12/23/16 12:59 I & O: 24-Hour Column 11/23/16 07:59 Intake Total 2163 ml Output Total 1620 ml Balance 543 ml Vital Signs: Date Time Temp Pulse Resp B/P Pulse Ox O2 Delivery O2 Flow Rate FiO2 11/23/16 12:02 35 11/23/16 10:00 36.8 70 16 136/57 96 Mechanical Ventilator 35 11/23/16 08:00 36.8 64 16 152/80 96 Mechanical Ventilator 35 11/23/16 08:00 35 11/23/16 08:00 Mechanical Ventilator 35 11/23/16 06:58 35 11/23/16 06:00 67 16 157/58 95 Mechanical Ventilator 35 11/23/16 05:15 35 11/23/16 04:00 37.3 62 18 145/59 97 Mechanical Ventilator 35 11/23/16 04:00 35 11/23/16 04:00 Mechanical Ventilator 35 11/23/16 02:10 35 11/23/16 02:00 63 16 129/53 97 Mechanical Ventilator 35 11/23/16 00:01 37.1 63 19 133/58 96 Mechanical Ventilator 35 11/22/16 23:59 Mechanical Ventilator 35 11/22/16 23:59 35 11/22/16 23:20 35 11/22/16 22:00 69 16 115/54 98 Mechanical Ventilator 40 11/22/16 20:45 40 11/22/16 20:00 Mechanical Ventilator 40 11/22/16 20:00 36.8 67 21 153/61 97 Mechanical Ventilator 11/22/16 20:00 40 11/22/16 18:00 36.9 79 18 148/63 96 Mechanical Ventilator 40 11/22/16 16:00 40 11/22/16 16:00 37.0 76 21 137/56 97 Mechanical Ventilator 40 11/22/16 16:00 Mechanical Ventilator 40 11/22/16 14:00 37.6 73 18 135/56 97 Mechanical Ventilator 40 11/22/16 13:45 40 Laboratory Results: Last 24 Hours Test 11/22/16 16:13 11/22/16 18:19 11/22/16 18:48 11/23/16 00:16 Phosphorus Level 4.9 mg/dl Bedside Glucose 208 mg/dl 170 mg/dl Hemoglobin 10.7 g/dL Hematocrit 33.6 % Test 11/23/16 06:22 11/23/16 09:54 White Blood Count 12.92 K/uL Red Blood Count 3.60 M/uL Hemoglobin 11.0 g/dL Hematocrit 34.8 % Mean Corpuscular Volume 96.7 fL Mean Corpuscular Hemoglobin 30.6 pg Mean Corpuscular Hemoglobin Concent 31.6 g/dl Platelet Count 217 K/uL Mean Platelet Volume 9.5 fL Neutrophils (%) (Auto) 89.0 % Lymphocytes (%) (Auto) 5.5 % Monocytes (%) (Auto) 5.1 % Eosinophils (%) (Auto) 0.0 % Basophils (%) (Auto) 0.0 % Neutrophils # (Auto) 11.50 K/uL Lymphocytes # (Auto) 0.71 K/uL Monocytes # (Auto) 0.66 K/uL Eosinophils # (Auto) 0.00 K/uL Basophils # (Auto) 0.00 K/uL RDW Standard Deviation 52.2 fL RDW Coefficient of Variation 14.6 % Immature Granulocyte % (Auto) 0.4 % Immature Granulocyte # (Auto) 0.05 K/uL Sodium Level 143 mmol/L Potassium Level 3.5 mmol/L Chloride Level 100 mmol/L Carbon Dioxide Level 34 mmol/L Anion Gap 9.0 mmol/L Blood Urea Nitrogen 53 mg/dl Creatinine 1.50 mg/dl Est Creatinine Clear Calc Drug Dose 31.1 ml/min Estimated GFR () 38.5 Estimated GFR (Non- 33.3 BUN/Creatinine Ratio 35.2 Random Glucose 157 mg/dl Calcium Level 9.2 mg/dl Phosphorus Level 5.4 mg/dl Magnesium Level 2.3 mg/dl Total Bilirubin 0.4 mg/dl Aspartate Amino Transf (AST/SGOT) 10 U/L Alanine Aminotransferase (ALT/SGPT) 14 U/L Alkaline Phosphatase 45 U/L Total Protein 6.3 gm/dl Albumin 2.5 gm/dl Globulin 3.8 gm/dl Albumin/Globulin Ratio 0.7 Procalcitonin < 0.05 ng/mL
[2016-11-23] MEDS: CEFTRIAXONE SOD INJ 1000 MG in DEXTROSE 5% 50ML IV SCH (13:57)
[2016-11-23] MEDS: AZITHROMYCIN IV 500 MG in DEXTROSE 5% 250ML 250 ML IV SCH (13:57)
[2016-11-23] MEDS: METHYLPREDNISOLONE IV 40 MG in SYRINGE 0 ML IV SCH (13:58)
[2016-11-23] MEDS: HEPARIN SOD 5000 UNIT/0.5 ML CARP SQ SCH ×3 (14:37→21:06)
[2016-11-23] MEDS ORDERED: LEVOFLOXACIN / D5W 750 MG in PREMIXED IN D5W 150 ML IV SCH (16:00)
[2016-11-23] MEDS ORDERED: VANCOMYCIN TROUGH ONE (17:30)
[2016-11-23] MEDS: MONTELUKAST SOD 10 MG TAB PO SCH (21:01)
[2016-11-23 21:13] LABS: MANUAL MICROSCOPIC REQUIRED? YES; URINE APPEARANCE SL CLOUDY (CLEAR); URINE BILIRUBIN NEG (NEG); URINE COLOR YELLOW; URINE NITRITE NEG (NEG); URINE SPECIFIC GRAVITY 1.015 (1.000-1.030); UROBILINOGEN NEG (NEG)
[2016-11-23 21:19] LABS: REVIEW REQ? NO
[2016-11-23 21:28] LABS: URINE RBC 0-4 /hpf (0-4)
[2016-11-23 21:29] LABS: URINE BACTERIA 1+ (NEG)
[2016-11-23 21:32] LABS: URINE GRANULAR CAST 0-3 /lpf (0)
[2016-11-24] VITALS (20 sets, daily range): BP systolic 107–143; BP diastolic 44–61; PULSE 68–86; TEMP 36.6–37.4; O2SAT 95–99
[2016-11-24] MEDS: INSULIN ASPART 100 UNITS/ML 3 ML PEN SC SCH ×9 (00:02→23:42)
[2016-11-24] MEDS: MIDAZOLAM HCL 1 MG/ML 2ML VIAL IV PRN ×4 (01:04→23:44)
[2016-11-24] MEDS: METHYLPREDNISOLONE IV 40 MG in SYRINGE 0 ML IV SCH ×2 (01:05→13:55)
[2016-11-24] MEDS: IPRATROPIUM BROMIDE HFA INHALER INH SCH ×4 (02:00→20:39)
[2016-11-24] MEDS: ALBUTEROL HFA 8 GM INHALER INH SCH ×4 (02:00→20:39)
[2016-11-24 06:02] LABS: BASO % 0.1 %; BASO ABS # 0.01 K/uL (0-0.2); COMPLETE YES; HEMATOCRIT 35.3 % (37-47); IG% 0.2 %; LYMPH % 3.1 %; MEAN CELL VOLUME 97.8 fL (80-100); MEAN CORPUSCULAR HEMOGLOBIN 30.2 pg (25-34); MEAN CORPUSCULAR HGB CONC 30.9 g/dl (32-36); MEAN PLATELET VOLUME 9.4 fL (7.4-10.4); MONO % 7.4 %; NEUT % 89.2 %; PLATELET COUNT 220 K/uL (130-400); RED BLOOD COUNT 3.61 M/uL (4.2-5.4); WHITE BLOOD COUNT 16.11 K/uL (4.8-10.8)
[2016-11-24] MEDS: HEPARIN SOD 5000 UNIT/0.5 ML CARP SQ SCH ×3 (06:26→21:43)
[2016-11-24 06:27] LABS: BUN/CREATININE RATIO 41.5 (10-20); CALCIUM 9.2 mg/dl (8.5-10.1); CREATININE 1.7 mg/dl (0.60-1.20); MAGNESIUM 2.4 mg/dl (1.8-2.4)
[2016-11-24 06:31] LABS: ALB/GLOB RATIO 0.6 (0.9-2); PHOSPHORUS 3.6 mg/dl (2.5-4.9)
--- NOTE | 2016-11-24 07:10 | DIAGNOSTIC IMAGING REPORT ---
CHEST ONE VIEW PORTABLE CLINICAL HISTORY: Respiratory failure COMPARISON STUDY: 11/23/2016 FINDINGS: The chest has an emphysematous configuration. There is an endotracheal tube 42 mm above the unruly. There is a nasogastric tube which passes into the stomach. There is no overt failure. Bibasilar opacities remain stable. There are suspected small subpulmonic pleural effusions. [ IMPRESSION: Stable findings. Emphysema with persistent bibasilar opacities. Electronically signed by: Boo Kaplan M.D. 11/24/2016 7:09 AM Dictated Date/Time: 11/24/2016 7:07 AM
--- NOTE | 2016-11-24 07:13 | Family Medicine Progress Note ---
Progress Note Date of Service Nov 24, 2016. Subjective Pt evaluation today including: conversation w/ patient, physical exam, chart review, lab review Patient awake, alert but intubated. Responsive to questions via nodding/shaking her head, and hand gestures. Able to follow simple commands. Denies any current pain or discomfort, including CP, dyspnea, abdominal pain. Indicates that she would like to be extubated. Constitutional: No fever Respiratory: No shortness of breath Cardiovascular: No chest pain Abdomen: No pain Medications Medications Administered Medications (Trade) Dose Ordered Sig/Omkar Route Start Time Stop Time Status Last Admin Dose Admin Levofloxacin 750 mg 750 mg NOW STAT IV 11/21/16 14:50 11/21/16 14:51 DC 11/21/16 15:17 750 MG Sodium Chloride (Nss 1000ml) 1,000 ml @ 999 mls/hr Q1H1M STAT IV 11/21/16 14:50 11/21/16 15:50 DC 11/21/16 15:10 999 MLS/HR Heparin Sodium (Porcine) (Heparin Sq 5000 Unit/0.5ml) 5,000 unit Q8 SQ 11/21/16 15:45 12/21/16 15:44 11/24/16 06:26 5,000 UNIT Propofol 1 dose 1 dose UD PRN IV 11/21/16 16:00 11/21/16 17:01 DC 11/21/16 16:01 1 DOSE Methylprednisolone Sodium Succinate 60 mg/Syringe 0.96 ml @ 1.5 mls/min Q8H IV 11/21/16 18:00 11/23/16 09:01 DC 11/23/16 02:03 1.5 MLS/MIN Vancomycin HCl/ Sodium Chloride (Vancomycin Inj/ Nss 500ml) 538 ml @ 200 mls/hr NOW ONCE IV 11/21/16 17:11 11/21/16 19:52 DC 11/21/16 18:15 200 MLS/HR Aspirin (Ecotrin Tab) 81 mg DAILY PO 11/22/16 09:00 11/23/16 06:50 DC 11/22/16 09:21 81 MG Atorvastatin Calcium (Lipitor Tab) 40 mg DAILY PO 11/22/16 09:00 12/22/16 08:59 11/23/16 08:33 40 MG Montelukast Sodium (Singulair Tab) 10 mg QPM PO 11/21/16 21:00 12/21/16 20:59 11/23/16 21:01 10 MG Propranolol HCl (Inderal Tab) 80 mg BID PO 11/21/16 21:00 12/21/16 20:59 11/23/16 21:01 80 MG Roflumilast (Daliresp Tab) 500 mcg DAILY PO 11/22/16 09:00 12/22/16 08:59 11/23/16 08:33 500 MCG Senna 8.6 mg 8.6 mg QAM PO 11/22/16 09:00 12/22/16 08:59 11/23/16 08:33 8.6 MG Aztreonam/Dextrose (Azactam IV/D5 100ml) 110 ml @ 100 mls/hr Q8H IV 11/21/16 18:00 11/22/16 13:07 DC 11/22/16 09:23 100 MLS/HR Propofol (Diprivan Iv Emulsion 100ml Vial) 1 dose UD PRN IV 11/21/16 18:19 11/23/16 09:16 DC 11/23/16 02:04 1 DOSE Chlorhexidine Gluconate (Peridex Oral Soln) 15 ml BID MT 11/21/16 21:00 12/21/16 20:59 11/23/16 21:02 15 ML Albuterol Sulfate (Ventolin 0.083% 2.5MG/3ML Neb) 10 mg NOW STAT INH 11/21/16 19:35 11/21/16 19:39 DC 11/21/16 20:03 10 MG Albuterol (Ventolin Hfa Inhaler) 4 puffs Q6R INH 11/21/16 21:00 12/21/16 20:59 11/24/16 02:00 4 PUFFS Ipratropium Monona 4 puffs 4 puffs Q6R INH 11/21/16 21:00 12/21/16 20:59 11/24/16 02:00 4 PUFFS Pantoprazole Sodium 40 mg/ Syringe 10 ml @ 5 mls/min BID IV 11/21/16 21:00 11/23/16 09:04 DC 11/23/16 08:32 5 MLS/MIN Sodium Chloride 1,000 ml @ 50 mls/hr Q20H IV 11/21/16 20:30 11/23/16 08:52 DC 11/22/16 17:33 50 MLS/HR Sodium Phosphate 15 mmol/Sodium Chloride 255 ml @ 88 mls/hr TODAY@1000 IV 11/22/16 10:00 11/22/16 15:00 DC 11/22/16 10:16 88 MLS/HR Azithromycin 500 mg/Dextrose 255 ml @ 125 mls/hr DAILY@1400 IV 11/22/16 14:00 11/29/16 13:59 11/23/16 13:57 125 MLS/HR Cefepime HCl/ Dextrose (Maxipime IV/D5 100ml) 112.5 ml @ 225 mls/hr Q24H IV 11/22/16 16:00 11/23/16 09:02 DC 11/22/16 16:01 225 MLS/HR Aspirin 81 mg 81 mg DAILY PO 11/23/16 09:00 12/23/16 08:59 11/23/16 08:37 81 MG Furosemide/Syringe (Lasix Inj/ Syringe) 4 ml @ 4 mls/min NOW ONCE IV 11/23/16 09:00 11/23/16 09:01 DC 11/23/16 09:07 4 MLS/MIN Potassium Chloride (Ria Ciel Elix) 60 meq NOW ONCE NG 11/23/16 09:00 11/23/16 09:01 DC 11/23/16 09:08 60 MEQ Enteral Nutritional Formula 1000 ml 1,000 ml UD PRN OG 11/23/16 09:00 12/23/16 08:59 11/23/16 09:37 1,000 ML Methylprednisolone Sodium Succinate/ Syringe (Solu-Medrol IV/ Syringe) 0.64 ml @ 1.5 mls/min Q12H IV 11/23/16 14:00 12/23/16 13:59 11/24/16 01:05 1.5 MLS/MIN Midazolam HCl 2 mg 2 mg Q2H PRN IV 11/23/16 09:15 12/23/16 09:14 11/24/16 01:04 2 MG Ceftriaxone Sodium/Dextrose (Rocephin Inj/D5 50ml) 60 ml @ 120 mls/hr DAILY@1400 IV 11/23/16 14:00 11/29/16 13:59 11/23/16 13:57 120 MLS/HR Insulin Aspart (novoLOG ASPART) SLIDING SCALE Q6 SC 11/23/16 13:00 12/23/16 12:59 11/24/16 06:28 3 UNITS Objective Vital Signs Date Time Temp Pulse Resp B/P Pulse Ox O2 Delivery O2 Flow Rate FiO2 11/24/16 06:00 82 21 133/50 95 CPAP Mechanical Ventilator 11/24/16 05:45 35 11/24/16 04:00 35 11/24/16 04:00 37.1 68 16 126/47 97 Mechanical Ventilator 35 11/24/16 04:00 Mechanical Ventilator 35 11/24/16 02:00 35 11/24/16 02:00 70 16 114/56 97 Mechanical Ventilator 35 11/24/16 00:01 37.3 74 17 115/47 97 Mechanical Ventilator 35 11/23/16 23:59 Mechanical Ventilator 35 11/23/16 23:59 35 11/23/16 23:05 35 11/23/16 22:00 72 17 119/58 97 Mechanical Ventilator 35 11/23/16 20:01 35 11/23/16 20:00 37.0 89 25 135/62 96 CPAP 35 Mechanical Ventilator 11/23/16 20:00 35 11/23/16 20:00 Mechanical Ventilator 35 11/23/16 18:10 35 11/23/16 16:00 Mechanical Ventilator 35 11/23/16 16:00 35 11/23/16 16:00 36.8 83 20 113/39 95 Mechanical Ventilator 35 11/23/16 14:00 36.8 73 18 112/58 95 Mechanical Ventilator 35 11/23/16 12:02 35 11/23/16 12:00 Mechanical Ventilator 35 11/23/16 12:00 36.8 71 18 140/56 95 Mechanical Ventilator 35 11/23/16 12:00 35 11/23/16 10:00 36.8 70 16 136/57 96 Mechanical Ventilator 35 11/23/16 08:00 36.8 64 16 152/80 96 Mechanical Ventilator 35 11/23/16 08:00 35 11/23/16 08:00 Mechanical Ventilator 35 Physical Exam General Appearance: WD/WN, no apparent distress Eyes: normal inspection ENT: hearing grossly normal Neck: supple Respiratory/Chest: no respiratory distress, no accessory muscle use, + decreased breath sounds, + crackles, + wheezing Cardiovascular: regular rate, rhythm, no murmur Abdomen: normal bowel sounds, non tender, soft Extremities: normal inspection, no pedal edema, no calf tenderness Neurologic/Psychiatric: alert, normal mood/affect Skin: normal color, warm/dry, no rash Laboratory Results Results Past 24 Hours Test 11/23/16 23:58 11/24/16 05:53 11/24/16 06:22 11/24/16 09:20 Range/Units Bedside Glucose 208 241 70-90 mg/dl White Blood Count 16.11 4.8-10.8 K/uL Red Blood Count 3.61 4.2-5.4 M/uL Hemoglobin 10.9 12.0-16.0 g/dL Hematocrit 35.3 37-47 % Mean Corpuscular Volume 97.8 80-100 fL Mean Corpuscular Hemoglobin 30.2 25-34 pg Mean Corpuscular Hemoglobin Concent 30.9 32-36 g/dl Platelet Count 220 130-400 K/uL Mean Platelet Volume 9.4 7.4-10.4 fL Neutrophils (%) (Auto) 89.2 % Lymphocytes (%) (Auto) 3.1 % Monocytes (%) (Auto) 7.4 % Eosinophils (%) (Auto) 0.0 % Basophils (%) (Auto) 0.1 % Neutrophils # (Auto) 14.37 1.4-6.5 K/uL Lymphocytes # (Auto) 0.50 1.2-3.4 K/uL Monocytes # (Auto) 1.20 0.11-0.59 K/uL Eosinophils # (Auto) 0.00 0-0.5 K/uL Basophils # (Auto) 0.01 0-0.2 K/uL RDW Standard Deviation 52.9 36.4-46.3 fL RDW Coefficient of Variation 14.7 11.5-14.5 % Immature Granulocyte % (Auto) 0.2 % Immature Granulocyte # (Auto) 0.03 0.00-0.02 K/uL Sodium Level 143 136-145 mmol/L Potassium Level 4.0 3.5-5.1 mmol/L Chloride Level 100 98-107 mmol/L Carbon Dioxide Level 38 21-32 mmol/L Anion Gap 5.0 3-11 mmol/L Blood Urea Nitrogen 71 7-18 mg/dl Creatinine 1.70 0.60-1.20 mg/dl Est Creatinine Clear Calc Drug Dose 27.4 ml/min Estimated GFR () 33.1 Estimated GFR (Non- 28.6 BUN/Creatinine Ratio 41.5 10-20 Random Glucose 265 70-99 mg/dl Calcium Level 9.2 8.5-10.1 mg/dl Phosphorus Level 3.6 2.5-4.9 mg/dl Magnesium Level 2.4 1.8-2.4 mg/dl Total Bilirubin 0.3 0.2-1 mg/dl Aspartate Amino Transf (AST/SGOT) 11 15-37 U/L Alanine Aminotransferase (ALT/SGPT) 14 12-78 U/L Alkaline Phosphatase 46 45-117 U/L Total Protein 6.3 6.4-8.2 gm/dl Albumin 2.3 3.4-5.0 gm/dl Globulin 4.0 2.5-4.0 gm/dl Albumin/Globulin Ratio 0.6 0.9-2 Blood Gas Sample Site L Radial Bedside Blood Gas pH (LAB) 7.34 7.35-7.45 Bedside Blood Gas pCO2 (LAB) 76 35-46 mmHg Bedside Blood Gas pO2 (LAB) 75 80-95 mmHg Bedside Blood Gas HCO3 (LAB) 41 19-24 meq/L Bedside Blood Gas Total CO2 > 40 24-31 mEq/l Bedside Blood Gas Base Excess (LAB) 16.0 -9-1.8 meq/L Bedside Blood Gas O2 Saturation 93.0 90-95 % Rd Test Pass Oxygen Delivery Device Ventilator Bedside FiO2 35 % Blood Gas PEEP 5 Test 11/24/16 12:07 11/24/16 15:47 11/24/16 19:55 Range/Units Bedside Glucose 177 216 250 70-90 mg/dl Assessment and Plan 76 yo F w/ hx of COPD on home O2 @ 5L p/w acute worsening of SOB with acute hypoxic respiratory failure prior to arrival with VBG showing CO2 of 47 in addition to generalized weakness. H/o fall, and chronic LE edema. Acute on Chronic Respiratory Failure - likely due to COPD exacerbation in the setting of pneumonia based on CXR showing bibasilar consolidation - Patient currently off sedation but remains intubated on mechanical ventilator , maintaining normal oxygen saturation - Failed weaning trial again today; plans to continue current ventilator settings with re-attempt tomorrow COPD Exacerbation - Continue Duoneb q6h - Continue Solumedrol 40 mg BID - Wean oxygen to maintain sats 88-92%; Baseline oxygen requirements 4L by NC - Continue Tylenol 650mg q4h and Morphine 2mg q2h PRN for pain Bibasilar consolidation - Sputum cx: normal rian, blood cx negative, urine cx negative. Cephalosporin allergy 11/21 was a GI S/E. - Continue azithromycin and ceftriaxone. Currently day 3 of 7. Pulmonary Congestion with KARINA- Ongoing diuresis causing some KARINA, with KCL supplementation - Continue Lasix diuresis - Monitor BMP and replace K+ as necessary Hyperlipidemia - Continue Atorvastatin 40mg daily HTN - Hold Lisinopril and Triamtrene/HCTZ due to KARINA - Continue Propranolol Cardio/DVT/GI Prophylaxis - Continue aspirin - Continue Heparin drip, SCD and TEDs (Lovenox contra-indicated due to KARINA) - Protonix 40 mg IV daily Atrial Fibrillation - this has been a listed problem on patients file for the past several years. However, in previous inpatient and outpatient encounters, no documented A.fib on EKG, none seen on monitor since admission, perusal of outpatient documents don't mention active a.fib management. It is possible this was a paroxysmal, rather than ongoing event. Code status - Full Code Dispo - Patient arrives to ICU from home; will re-assess needs following PT/OT evaluations post extubation Continued [facility] stay due to: abnormal vital signs, multiple IV medications needed Resident Tracking Resident Involvement: Resident Care Provided Care Provided: Adult Hospital Medicine History Resident Physician Supervision Note: I was present with Dr. Glaser during the history and exam. I discussed the case with the resident and agree with the findings and plan as documented in the note. Any exceptions or clarifications are listed here. Pt seen and examined at bedside. No acute events overnight. Today failed spontaneous breathing trial and was returned to mechanical ventilation. At time of examination, answered questions appropriately with nonverbal response. No pain complaints. Reports no lightheadedness, abd pain/n/v, sensation changes. Feels like is breathing somewhat easier on vent. General Appearance: no apparent distress, other (on vent) Respiratory: chest non-tender, decreased breath sounds (throughout improved from previous), wheezing (end exp scattered wheeze following neb treatment) Cardiovascular: normal peripheral pulses, regular rate, rhythm, no murmur Assessment/Plan 76 y/o female h/o COPD presents w/ ARF 2/2 CAP and COPD exacerbation COPD exacerbation w/ emphysema, VDRF - continue duonebs, solumedrol. Trim Machine Adjuster management appreciated. Basilar consolidation w/ neg BCx, nl sputum cx - Continue azithromycin and cefepime (day 3) Pulmonary congestion in setting of KARINA - continue gentle diuresis with close BMP monitoring HTN - continue propranolol, holding lisinopril, Triamterene/HCTZ Hyperglycemia on steroids - ISS, FSBS monitoring
[2016-11-24] MEDS: ROFLUMILAST 500 MCG TAB PO SCH (08:21)
[2016-11-24] MEDS: ASPIRIN 81 MG CHEW PO SCH (08:21)
[2016-11-24] MEDS: ATORVASTATIN 40 MG TAB PO SCH (08:22)
[2016-11-24] MEDS: PROPRANOLOL HCL 80 MG TAB PO SCH ×2 (08:22→21:36)
[2016-11-24] MEDS: SENNA 8.6 MG TAB PO SCH (08:22)
[2016-11-24] MEDS: CHLORHEXIDINE GLUCONATE 0.12% 480 ML MT SCH ×2 (08:23→21:36)
[2016-11-24] MEDS ORDERED: LORAZEPAM 2 MG/ML 1 ML VIAL IV STA (08:33)
[2016-11-24] MEDS ORDERED: FUROSEMIDE 40 MG/4 ML VIAL ONE (08:44)
[2016-11-24] MEDS ORDERED: POTASSIUM CHLORIDE 20 MEQ/15 ML UDC PO ONE (08:45)
[2016-11-24 08:58] LABS: LEGIONELLA ANTIGEN NOT DETECTED (NOT DETECTED)
[2016-11-24] MEDS ORDERED: LANTUS PER UNIT CHARGE SQ ONE (09:00)
[2016-11-24 09:32] LABS: ISTAT ALLEN TEST Pass; ISTAT ARTERIAL BLOOD GAS HCO3 41 meq/L (19-24); ISTAT ARTERIAL BLOOD GAS PCO2 76 mmHg (35-46); ISTAT ARTERIAL BLOOD GAS PO2 75 mmHg (80-95); ISTAT ARTERIAL BLOOD GAS pH 7.34 (7.35-7.45); ISTAT CARBON DIOXIDE > 40 mEq/l (24-31); ISTAT DELIVERY SYSTEM Ventilator; ISTAT FIO2 35 %; ISTAT PEEP 5; ISTAT SITE L Radial
--- NOTE | 2016-11-24 10:44 | Critical Care Progress Note ---
Critical Care Progress Note Date of Service Nov 24, 2016. ICU Day ICU Day Number: [address] Krause Subjective Patient is awake and alert Denies any pain or issues overnight Able to follow simple commands Objective Constitutional: Vital signs as below were reviewed. Eyes: Pupils equal, round, and reactive to light. Extraocular muscles are intact. No proptosis. No photophobia. ENT: Mucous membranes are moist. Oropharynx is clear. No sinus tenderness. TMs are clear bilaterally. OG tube in place Cardiovascular: Heart with a regular rate and rhythm, no murmurs or gallops. No pedal edema appreciated. Respiratory: Coarse breath sounds bilaterally, improved from day prior; good air entry. Minimal wheezing. No accessory muscle use. No retractions. No increased work of breathing. GI: Abdomen soft, nontender, nondistended. Normal active bowel sounds. No abdominal hernias appreciated. No rebound. No guarding. : No CVA tenderness appreciated. Musculoskeletal: No midline cervical or vertebral tenderness. No gross deformities. No bony tenderness. No calf swelling or tenderness. SCDs in place Integumentary: Warm, dry, no rashes appreciated. Neurological: Patient awakens to command. Follows simple commands. RASS Score 0 CAM-ICU Negative Lymph: No cervical lymphadenopathy appreciated. Assessment & Plan 76 year old female with the following problems - Hypercapnic respiratory failure - Acute COPD exacerbation - Emphysema - Community Acquired PNA - Fluid Overload/Pulmonary congestion - Chronic Hypertension - Acute Kidney Injury - Risk of stress gastritis - Risk for electrolyte abnormalities secondary to diuresis - Hyperglycemia Our plan for her is as follows: NEUROLOGICAL - GCS: 14 - Sedation: Midazolam 2 mg every 2 hours - RASS: 0; patient is awake and alert; able to follow simple commands at the bedside - Pain regimen: Continue Tylenol 650 mg q4 hr Continue Morphine 2 mg q 2 hours PRN for pain CARDIAC - BP: 126/47 MAP: Ranging from 70-80 over the past 24 hours - Fluids: None - Vasopressor support: None - Hypertension Continue to hold Lisinopril and Triamtrene/HCTZ due to ongoing KARINA Continue Propranolol RESPIRATORY - RR: 16-18 SpO2: 95-97% - Ventilator settings: Volume A/C; RR 16; Vt 500 ml; PEEP 5; FiO2 35% - AM CXR: Stable bibasilar opacities, unchanged from day prior - Acute hypoxemic/hypercapneic respiratory failure Secondary to community-acquired pneumonia and COPD Exacerbation Continue Duoneb q 6 hours Continue Solumedrol to 40 mg BID; plan to keep at current dose for 3 more days Antibiotics as noted below Repeat weaning trial attempted today; Failed weaning trial today; ABG notes mild acidosis with persistent hypercapnia on CPAP Continue mechanical ventilation at least another 24 hours; repeat weaning trial tomorrow Goals: Sat 88-92%; Baseline oxygen requirements 4 L by nasal cannula - Community-acquired pneumonia - As above; see antibiotics below - COPD exacerbation - As above GASTROINTSTINAL - Diet: Continue tube feeds with fiber source - GI Prophylaxis: Protonix 40 mg IV daily - Bowel regimen: No BM since admission; continue to follow RENAL//ENDOCRINE - Fluid Balance 24 hour: In 1569 ml / Out 2100ml / Net - 531 ml Cumulative: In 5844 ml / Out 3895 ml / Net + 1949 ml Patient is net positive for 24 hours and cumulative; goal negative fluid balance; Lasix 40 mg IV one now; re-assess tomorrow - 24-hour UO: 1.09 ml/kg/hr - Cr: 1.7 (Baseline: 0.9-1.1) - Electrolytes: NA 143, K 4.0, chloride 100, bicarbonate 38, BUNs 71, creatinine 1.7; mag 2.4, phosphorus 3.6, calcium 9.2 Continued risk for hypokalemia with loop diuretic; 40 Klor today - Acute Kidney Injury - Cr. 1.7 today; this is slightly worse than day prior (1.5) - Continue to monitor daily BMP - Positive fluid balance - Lasix 40 mg IV today - Hyperglycemia - Sliding Scale; patient is acutely ill on steroids which will be weaned - BSG ranging 200 -240 - Start Lantus 10 units daily HEME/INFECTIOUS DISEASE - Tmax: 37.3 WBC: 16 (increased from 12) - Hb/Hct 10.9/35.3, stable - Plt: 220, stable - Community Acquired PNA No hospitalizations since 2013 Azithromycin IV, day 3/7 Rocephin IV, day 2; patient was on cephalosporin for 1 day prior to Rocephin , therefore is technically on day 3/7 of cephalosporin therapy - DVT Prophylaxis Heparin 5000 s.c q 8 hours; SCD and TEDs LINES/IV ACCESS - Right forearm 22 G - Right forearm 20 G CODE STATUS - Full Code Resident Physician Supervision Note: Dr. Carmona was resident physician during care of patient. I separately evaluated patient and did history and exam. I discussed the case with the resident and generally agree with the findings and plan. COPD exacerbation, failed spontaneous breathing trial will attempt again tomorrow. I have personally spent 35 minutes of critical care time in the direct management of this patient. This is a life/limb threatening event. This includes time spent evaluating patient, direct bedside care, chart review, placing orders, interpretation of diagnostic studies, discussion with consultants, patient, and family members, as well as other required patient management activities. This time is exclusive of all separately billable procedures, and teaching time and separate from and in addition to any other critical care service time. Documented By: Elie rKause DO Consults & Procedures Consultants: None Procedures: None Data Medications: Current Inpatient Medications Medications (Trade) Dose Ordered Sig/Omkar Route Start Time Stop Time Status Last Admin Dose Admin Heparin Sodium (Porcine) (Heparin Sq 5000 Unit/0.5ml) 5,000 unit Q8 SQ 11/21/16 15:45 12/21/16 15:44 11/24/16 06:26 5,000 UNIT Acetaminophen (Tylenol Tab) 650 mg Q4H PRN PO 11/21/16 15:45 12/21/16 15:44 Morphine Sulfate (MoRPHine SULFATE INJ) 2 mg Q2H PRN IV 11/21/16 15:45 12/05/16 15:44 Albuterol/ Ipratropium (Duoneb) 3 ml Q6 PRN INH 11/21/16 15:45 12/21/16 15:44 Atorvastatin Calcium (Lipitor Tab) 40 mg DAILY PO 11/22/16 09:00 12/22/16 08:59 11/24/16 08:22 40 MG Montelukast Sodium (Singulair Tab) 10 mg QPM PO 11/21/16 21:00 12/21/16 20:59 11/23/16 21:01 10 MG Propranolol HCl (Inderal Tab) 80 mg BID PO 11/21/16 21:00 12/21/16 20:59 11/24/16 08:22 80 MG Roflumilast (Daliresp Tab) 500 mcg DAILY PO 11/22/16 09:00 12/22/16 08:59 11/24/16 08:21 500 MCG Senna (Senokot Tab) 8.6 mg QAM PO 11/22/16 09:00 12/22/16 08:59 11/24/16 08:22 8.6 MG Chlorhexidine Gluconate (Peridex Oral Soln) 15 ml BID MT 11/21/16 21:00 12/21/16 20:59 11/24/16 08:23 15 ML Albuterol (Ventolin Hfa Inhaler) 4 puffs Q6R INH 11/21/16 21:00 12/21/16 20:59 11/24/16 08:37 4 PUFFS Ipratropium Success (Atrovent Hfa Inhaler) 4 puffs Q6R INH 11/21/16 21:00 12/21/16 20:59 11/24/16 08:37 4 PUFFS Albuterol 4 puffs 4 puffs Q4 PRN INH 11/21/16 19:45 12/21/16 19:44 Azithromycin/ Dextrose (Zithromax IV/D5 250ml) 255 ml @ 125 mls/hr DAILY@1400 IV 11/22/16 14:00 11/29/16 13:59 11/23/16 13:57 125 MLS/HR Aspirin (Aspirin Chew) 81 mg DAILY PO 11/23/16 09:00 12/23/16 08:59 11/24/16 08:21 81 MG Enteral Nutritional Formula 1000 ml 1,000 ml UD PRN OG 11/23/16 09:00 12/23/16 08:59 11/23/16 09:37 1,000 ML Methylprednisolone Sodium Succinate 40 mg/Syringe 0.64 ml @ 1.5 mls/min Q12H IV 11/23/16 14:00 12/23/16 13:59 11/24/16 01:05 1.5 MLS/MIN Pantoprazole Sodium/Syringe (Protonix Inj/ Syringe) 10 ml @ 5 mls/min DAILY@1100 IV 11/23/16 11:00 12/23/16 10:59 Future hold 11/24/16 10:12 5 MLS/MIN Midazolam HCl 2 mg 2 mg Q2H PRN IV 11/23/16 09:15 12/23/16 09:14 11/24/16 01:04 2 MG Ceftriaxone Sodium/Dextrose (Rocephin Inj/D5 50ml) 60 ml @ 120 mls/hr DAILY@1400 IV 11/23/16 14:00 11/29/16 13:59 11/23/16 13:57 120 MLS/HR Insulin Aspart (novoLOG ASPART) SLIDING SCALE Q4 SC 11/24/16 12:00 12/24/16 11:59 I & O: 24-Hour Column 11/24/16 08:00 Intake Total 1341 ml Output Total 1575 ml Balance -234 ml Vital Signs: Date Time Temp Pulse Resp B/P Pulse Ox O2 Delivery O2 Flow Rate FiO2 11/24/16 10:00 37.0 68 16 127/46 99 Mechanical Ventilator 35 11/24/16 09:20 35 11/24/16 09:00 79 23 128/60 96 Mechanical Ventilator 35 11/24/16 08:00 Mechanical Ventilator 35 11/24/16 08:00 35 11/24/16 08:00 36.8 86 27 143/59 95 CPAP 35 Mechanical Ventilator 11/24/16 07:05 35 11/24/16 06:00 82 21 133/50 95 CPAP Mechanical Ventilator 11/24/16 05:45 35 11/24/16 04:00 35 11/24/16 04:00 37.1 68 16 126/47 97 Mechanical Ventilator 35 11/24/16 04:00 Mechanical Ventilator 35 11/24/16 02:00 35 11/24/16 02:00 70 16 114/56 97 Mechanical Ventilator 35 11/24/16 00:01 37.3 74 17 115/47 97 Mechanical Ventilator 35 11/23/16 23:59 Mechanical Ventilator 35 11/23/16 23:59 35 11/23/16 23:05 35 11/23/16 22:00 72 17 119/58 97 Mechanical Ventilator 35 11/23/16 20:01 35 11/23/16 20:00 37.0 89 25 135/62 96 CPAP 35 Mechanical Ventilator 11/23/16 20:00 35 11/23/16 20:00 Mechanical Ventilator 35 11/23/16 18:10 35 11/23/16 16:00 Mechanical Ventilator 35 11/23/16 16:00 35 11/23/16 16:00 36.8 83 20 113/39 95 Mechanical Ventilator 35 11/23/16 14:00 36.8 73 18 112/58 95 Mechanical Ventilator 35 11/23/16 12:02 35 11/23/16 12:00 Mechanical Ventilator 35 11/23/16 12:00 36.8 71 18 140/56 95 Mechanical Ventilator 35 11/23/16 12:00 35 Laboratory Results: Last 24 Hours Test 11/23/16 13:46 11/23/16 15:30 11/23/16 17:36 11/23/16 21:05 Bedside Glucose 160 mg/dl 233 mg/dl 210 mg/dl Urine Color YELLOW Urine Appearance SL CLOUDY Urine pH 6.0 Urine Specific [place] 1.015 Urine Protein NEG Urine Glucose (UA) NEG Urine Ketones NEG Urine Occult Blood 1+ Urine Nitrite NEG Urine Bilirubin NEG Urine Urobilinogen NEG Urine Leukocyte Esterase SMALL Urine RBC 0-4 /hpf Urine WBC 1-5 /hpf Urine Epithelial Cells >30 /lpf Urine Bacteria 1+ Urine Hyaline Casts 10-30 /lpf Urine Granular Casts 0-3 /lpf Test 11/23/16 23:58 11/24/16 05:53 11/24/16 06:22 11/24/16 09:20 Bedside Glucose 208 mg/dl 241 mg/dl White Blood Count 16.11 K/uL Red Blood Count 3.61 M/uL Hemoglobin 10.9 g/dL Hematocrit 35.3 % Mean Corpuscular Volume 97.8 fL Mean Corpuscular Hemoglobin 30.2 pg Mean Corpuscular Hemoglobin Concent 30.9 g/dl Platelet Count 220 K/uL Mean Platelet Volume 9.4 fL Neutrophils (%) (Auto) 89.2 % Lymphocytes (%) (Auto) 3.1 % Monocytes (%) (Auto) 7.4 % Eosinophils (%) (Auto) 0.0 % Basophils (%) (Auto) 0.1 % Neutrophils # (Auto) 14.37 K/uL Lymphocytes # (Auto) 0.50 K/uL Monocytes # (Auto) 1.20 K/uL Eosinophils # (Auto) 0.00 K/uL Basophils # (Auto) 0.01 K/uL RDW Standard Deviation 52.9 fL RDW Coefficient of Variation 14.7 % Immature Granulocyte % (Auto) 0.2 % Immature Granulocyte # (Auto) 0.03 K/uL Sodium Level 143 mmol/L Potassium Level 4.0 mmol/L Chloride Level 100 mmol/L Carbon Dioxide Level 38 mmol/L Anion Gap 5.0 mmol/L Blood Urea Nitrogen 71 mg/dl Creatinine 1.70 mg/dl Est Creatinine Clear Calc Drug Dose 27.4 ml/min Estimated GFR () 33.1 Estimated GFR (Non- 28.6 BUN/Creatinine Ratio 41.5 Random Glucose 265 mg/dl Calcium Level 9.2 mg/dl Phosphorus Level 3.6 mg/dl Magnesium Level 2.4 mg/dl Total Bilirubin 0.3 mg/dl Aspartate Amino Transf (AST/SGOT) 11 U/L Alanine Aminotransferase (ALT/SGPT) 14 U/L Alkaline Phosphatase 46 U/L Total Protein 6.3 gm/dl Albumin 2.3 gm/dl Globulin 4.0 gm/dl Albumin/Globulin Ratio 0.6 Blood Gas Sample Site L Radial Bedside Blood Gas pH (LAB) 7.34 Bedside Blood Gas pCO2 (LAB) 76 mmHg Bedside Blood Gas pO2 (LAB) 75 mmHg Bedside Blood Gas HCO3 (LAB) 41 meq/L Bedside Blood Gas Total CO2 > 40 mEq/l Bedside Blood Gas Base Excess (LAB) 16.0 meq/L Bedside Blood Gas O2 Saturation 93.0 % Rd Test Pass Oxygen Delivery Device Ventilator Bedside FiO2 35 % Blood Gas PEEP 5
[2016-11-24] MEDS: FIBERSOURCE HN 1000ML BAG OG PRN ×2 (11:57)
--- NOTE | 2016-11-24 12:20 | Pharmacy Progress Note ---
Glycemic Control: Progress Nt Date of Service Nov 24, 2016. Scope Glycemic Pharmacist consulted by Dr Krause on 11/24/16 for glycemic control and to write orders per [facility] inpatient glycemic control protocol. Objective Accuchecks BSG (last 24hrs): Test 11/23/16 13:46 11/23/16 17:36 11/23/16 21:05 11/23/16 23:58 Bedside Glucose 160 mg/dl (70-90) 233 mg/dl (70-90) 210 mg/dl (70-90) 208 mg/dl (70-90) Test 11/24/16 05:53 11/24/16 06:22 Random Glucose 265 mg/dl (70-99) Bedside Glucose 241 mg/dl (70-90) Laboratory Data (last 24hrs) Test 11/24/16 05:53 Anion Gap 5.0 mmol/L BUN/Creatinine Ratio 41.5 Blood Urea Nitrogen 71 mg/dl Creatinine 1.70 mg/dl Potassium Level 4.0 mmol/L Sodium Level 143 mmol/L White Blood Count 16.11 K/uL Red Blood Count 3.61 M/uL Hemoglobin 10.9 g/dL Hematocrit 35.3 % Mean Corpuscular Volume 97.8 fL Mean Corpuscular Hemoglobin 30.2 pg Mean Corpuscular Hemoglobin Concent 30.9 g/dl Platelet Count 220 K/uL Mean Platelet Volume 9.4 fL Neutrophils (%) (Auto) 89.2 % Lymphocytes (%) (Auto) 3.1 % Monocytes (%) (Auto) 7.4 % Eosinophils (%) (Auto) 0.0 % Basophils (%) (Auto) 0.1 % Neutrophils # (Auto) 14.37 K/uL Lymphocytes # (Auto) 0.50 K/uL Monocytes # (Auto) 1.20 K/uL Eosinophils # (Auto) 0.00 K/uL Basophils # (Auto) 0.01 K/uL HbA1c: 5.8% 05/01/16 Recent Pertinent Medications Outpatient Anti-diabetic Regimen: * no prior dx of DM, no out-pt meds for DM * A1c = 5.8 % 05/01/16 The patient is currently receiving: * Basal insulin: Lantus -- units every -- hours * Correctional Insulin: Novolog Correction per scale Q 6 hours Goal Range: Low 140 mg/dL - High 180 mg/dL Correction Factor: 25 mg/dL/unit * Prandial insulin: Per carb ratio of 1 unit per -- grams CHO consumed Risk Factors for Insulin Resistance: * Steroids: Solu-Medrol 40mg IV Q 12 hours * Infection: acute on chronic resp failure secondary to PNX / COPD exac; H influ in sputum; receiving Rocephin + Zithromax * Diet: NPO, however started Fibersource HN tube feedings yesterday afternoon * Mechanical Ventilation: yes Assessment & Plan ASSESSMENT: 11/24/16 * Patient remains on mechanical ventilation at this time - a SBT was attempted this AM, however she failed this trial due to ABGs * Tube feeds will continue for another 24 hours; steroid dose not to be tapered today * Glycemic control deteriorated with the addition of continuous tube feeds yesterday. Although this patient does not have a prior h/o DM, the IV Solu- Medrol is making her much more insulin resistant and carb sensitive. * Will add a carb ratio to the current Novolog order and change BSG frequency and Novolog coverage to Q 4 hours for now * Will give a single dose of Lantus this AM to help obtain glycemic control more quickly today PLAN FOR INPATIENT GLYCEMIC CONTROL: * Lantus 10 units SQ x 1 * Changing BSG frequency to Q 4 hrs until glycemic control improves * Changing correction factor to 20 mg/dl/unit * Adding carb ratio of 1 unit per 9 grams CHO consumed * Continuing goal range of Low 140 mg/dL - High 180 mg/dL * Reassess insulin needs with each step down in steroid dose * Please note that the plan above was derived based on current level of insulin resistance and hospital stress. These recommendations are appropriate for inpatient admission only. Plan of care upon discharge will need to be reassessed to avoid potential outpatient hypo/hyperglycemia. Thank you.
[2016-11-24] MEDS: AZITHROMYCIN IV 500 MG in DEXTROSE 5% 250ML 250 ML IV SCH (13:55)
[2016-11-24] MEDS: CEFTRIAXONE SOD INJ 1000 MG in DEXTROSE 5% 50ML IV SCH (13:55)
[2016-11-24] MEDS: MoRPHine SULFATE 2 MG/ML CARP IV PRN ×2 (14:49→23:44)
[2016-11-24] MEDS: MONTELUKAST SOD 10 MG TAB PO SCH (21:36)
--- NOTE | 2016-11-24 22:15 | DIAGNOSTIC IMAGING REPORT ---
SINGLE VIEW CHEST CLINICAL HISTORY: PICC placement. FINDINGS: An AP, portable, upright chest radiograph is compared to study performed earlier the same day 11/24/2016 and correlated with chest CT dated 06/10/2012. The examination is significantly degraded by portable technique and patient rotation. A right PICC line has been placed. The tip of the catheter projects over the cavoatrial junction. Endotracheal and enteric tubes are unchanged in position. The heart is normal for projection and there is atherosclerotic calcification of the thoracic aorta. Pulmonary vascular congestion persists. Emphysema and chronic interstitial thickening are similar to previous. There are small pleural effusions with bibasilar consolidation. A calcified granuloma is noted at the right apex. No pneumothorax is seen. The skeletal structures are osteopenic. The bony thorax is grossly intact. IMPRESSION: 1. A right PICC line has been placed. The tip projects over the cavoatrial junction. 2. Remaining lines and tubes are stable. 3. Emphysema. 4. Mild pulmonary vascular congestion is again suggested. 5. There is bibasilar patchy airspace consolidation with small pleural effusions. This is unchanged from earlier today. Electronically signed by: Darci Hobbs M.D. 11/24/2016 10:14 PM Dictated Date/Time: 11/24/2016 10:12 PM
[2016-11-25] VITALS (23 sets, daily range): BP systolic 116–158; BP diastolic 48–78; PULSE 70–92; TEMP 36.7–37.2; O2SAT 86–98
[2016-11-25] MEDS: INSULIN ASPART 100 UNITS/ML 3 ML PEN SC SCH ×8 (01:59→20:00)
[2016-11-25] MEDS: METHYLPREDNISOLONE IV 40 MG in SYRINGE 0 ML IV SCH (02:03)
[2016-11-25] MEDS: IPRATROPIUM BROMIDE HFA INHALER INH SCH (02:35)
[2016-11-25] MEDS: ALBUTEROL HFA 8 GM INHALER INH SCH (02:35)
[2016-11-25 05:45] LABS: COMPLETE YES; EOS % 0.1 %; HEMATOCRIT 33.9 % (37-47); IG% 0.3 %; LYMPH % 3.5 %; LYMPH ABS # 0.46 K/uL (1.2-3.4); MEAN CELL VOLUME 100.3 fL (80-100); MEAN CORPUSCULAR HEMOGLOBIN 30.8 pg (25-34); MEAN CORPUSCULAR HGB CONC 30.7 g/dl (32-36); MEAN PLATELET VOLUME 9.5 fL (7.4-10.4); MONO % 6.6 %; NEUT % 89.5 %; PLATELET COUNT 209 K/uL (130-400); RED BLOOD COUNT 3.38 M/uL (4.2-5.4); WHITE BLOOD COUNT 13.03 K/uL (4.8-10.8)
[2016-11-25 05:48] LABS: VEN BLD GAS O2 SATURATION 73.9 %; VEN BLOOD GAS BASE EXCESS 15.1 mmol/L
[2016-11-25 06:23] LABS: BUN/CREATININE RATIO 51.8 (10-20); CREATININE 1.4 mg/dl (0.60-1.20); MAGNESIUM 2.5 mg/dl (1.8-2.4); POTASSIUM 3.9 mmol/L (3.5-5.1)
[2016-11-25 06:29] LABS: ALB/GLOB RATIO 0.6 (0.9-2); PHOSPHORUS 2.2 mg/dl (2.5-4.9)
[2016-11-25 06:32] LABS: CALCIUM 9.2 mg/dl (8.5-10.1)
--- NOTE | 2016-11-25 06:44 | Family Medicine Progress Note ---
Progress Note Date of Service Nov 25, 2016. Subjective Pt evaluation today including: conversation w/ patient, physical exam, chart review, lab review Voiding: ferguson catheter in place Patient awake and alertand s/p extubation. She is able to converse and follow commands, responding appropriately. She denies throat pain. as well as CP, SOB, abdo pain. She comfortable and glad to be extubated. Constitutional: No fever Respiratory: No cough, No shortness of breath Cardiovascular: No chest pain, No palpitations Abdomen: No nausea, No pain, No vomiting Objective Vital Signs Date Time Temp Pulse Resp B/P Pulse Ox O2 Delivery O2 Flow Rate FiO2 11/25/16 05:30 35 11/25/16 04:00 35 11/25/16 04:00 Mechanical Ventilator 35 11/25/16 04:00 37.2 76 17 136/51 97 Mechanical Ventilator 35 11/25/16 03:00 78 16 134/62 98 11/25/16 02:35 35 11/25/16 02:00 71 16 116/57 98 Mechanical Ventilator 35 11/25/16 00:00 37.2 70 16 122/51 98 Mechanical Ventilator 35 11/24/16 23:59 35 11/24/16 23:59 Mechanical Ventilator 35 11/24/16 23:40 35 11/24/16 23:00 82 24 95 11/24/16 22:01 73 13 141/56 97 Mechanical Ventilator 35 11/24/16 21:00 71 16 127/50 98 35 11/24/16 20:39 35 11/24/16 20:00 35 11/24/16 20:00 37.4 74 15 125/52 97 Mechanical Ventilator 35 11/24/16 20:00 Mechanical Ventilator 35 11/24/16 18:01 75 16 141/61 97 11/24/16 17:57 36.6 71 16 125/60 97 Mechanical Ventilator 35 11/24/16 17:50 35 11/24/16 17:30 70 16 97 11/24/16 17:00 75 16 125/60 96 11/24/16 16:30 73 16 97 11/24/16 16:01 70 16 137/48 98 11/24/16 15:30 35 11/24/16 15:30 36.6 70 16 107/44 96 Mechanical Ventilator 35 11/24/16 15:30 69 17 97 11/24/16 15:30 Mechanical Ventilator 35 11/24/16 14:10 35 11/24/16 14:00 81 20 118/52 99 Mechanical Ventilator 35 11/24/16 12:00 97 Mechanical Ventilator 35 11/24/16 12:00 36.8 72 16 121/59 97 Mechanical Ventilator 35 11/24/16 12:00 35 11/24/16 10:30 35 11/24/16 10:00 37.0 68 16 127/46 99 Mechanical Ventilator 35 11/24/16 09:20 35 11/24/16 09:00 79 23 128/60 96 Mechanical Ventilator 35 11/24/16 08:00 Mechanical Ventilator 35 11/24/16 08:00 35 11/24/16 08:00 36.8 86 27 143/59 95 CPAP 35 Mechanical Ventilator 11/24/16 07:05 35 Physical Exam General Appearance: WD/WN, no apparent distress Eyes: normal inspection ENT: hearing grossly normal Neck: supple Respiratory/Chest: lungs clear, normal breath sounds, no respiratory distress, + accessory muscle use Cardiovascular: regular rate, rhythm, no murmur Abdomen: normal bowel sounds, non tender, soft Extremities: normal inspection, no pedal edema, no calf tenderness Neurologic/Psychiatric: alert, normal mood/affect, oriented x 3 Skin: normal color, warm/dry, no rash Laboratory Results Results Past 24 Hours Test 11/24/16 23:40 11/25/16 04:53 11/25/16 05:34 11/25/16 10:47 Range/Units Bedside Glucose 166 192 120 70-90 mg/dl White Blood Count 13.03 4.8-10.8 K/uL Red Blood Count 3.38 4.2-5.4 M/uL Hemoglobin 10.4 12.0-16.0 g/dL Hematocrit 33.9 37-47 % Mean Corpuscular Volume 100.3 80-100 fL Mean Corpuscular Hemoglobin 30.8 25-34 pg Mean Corpuscular Hemoglobin Concent 30.7 32-36 g/dl Platelet Count 209 130-400 K/uL Mean Platelet Volume 9.5 7.4-10.4 fL Neutrophils (%) (Auto) 89.5 % Lymphocytes (%) (Auto) 3.5 % Monocytes (%) (Auto) 6.6 % Eosinophils (%) (Auto) 0.1 % Basophils (%) (Auto) 0.0 % Neutrophils # (Auto) 11.66 1.4-6.5 K/uL Lymphocytes # (Auto) 0.46 1.2-3.4 K/uL Monocytes # (Auto) 0.86 0.11-0.59 K/uL Eosinophils # (Auto) 0.01 0-0.5 K/uL Basophils # (Auto) 0.00 0-0.2 K/uL RDW Standard Deviation 52.5 36.4-46.3 fL RDW Coefficient of Variation 14.5 11.5-14.5 % Immature Granulocyte % (Auto) 0.3 % Immature Granulocyte # (Auto) 0.04 0.00-0.02 K/uL Venous Blood pH 7.43 7.36-7.41 Venous Blood Partial Pressure CO2 64 38.0-50.0 mmHg Venous Blood Partial Pressure O2 43 mmHg Venous Blood HCO3 42 mmol/L Venous Blood Oxygen Saturation 73.9 % Venous Blood Base Excess 15.1 mmol/L Sodium Level 146 136-145 mmol/L Potassium Level 3.9 3.5-5.1 mmol/L Chloride Level 101 98-107 mmol/L Carbon Dioxide Level 40 21-32 mmol/L Anion Gap 5.0 3-11 mmol/L Blood Urea Nitrogen 73 7-18 mg/dl Creatinine 1.40 0.60-1.20 mg/dl Est Creatinine Clear Calc Drug Dose 33.3 ml/min Estimated GFR () 41.9 Estimated GFR (Non- 36.2 BUN/Creatinine Ratio 51.8 10-20 Random Glucose 214 70-99 mg/dl Calcium Level 9.2 8.5-10.1 mg/dl Phosphorus Level 2.2 2.5-4.9 mg/dl Magnesium Level 2.5 1.8-2.4 mg/dl Total Bilirubin 0.3 0.2-1 mg/dl Aspartate Amino Transf (AST/SGOT) 7 15-37 U/L Alanine Aminotransferase (ALT/SGPT) 13 12-78 U/L Alkaline Phosphatase 43 45-117 U/L Total Protein 6.1 6.4-8.2 gm/dl Albumin 2.2 3.4-5.0 gm/dl Globulin 3.9 2.5-4.0 gm/dl Albumin/Globulin Ratio 0.6 0.9-2 Test 11/25/16 15:47 11/25/16 20:07 Range/Units Bedside Glucose 149 152 70-90 mg/dl Assessment and Plan 76 yo F w/ hx of COPD on home O2 @ 5L p/w acute worsening of SOB with acute hypoxic respiratory failure prior to arrival with VBG showing CO2 of 47 in addition to generalized weakness. H/o fall, and chronic LE edema. Acute on Chronic Respiratory Failure - likely due to COPD exacerbation in the setting of pneumonia based on CXR showing bibasilar consolidation - Patient successfully extubated, maintaining normal saturation with supplemental oxygen - Wean oxygen to maintain sats 88-92%; Baseline oxygen requirements 4L by NC - Continue Tylenol 650mg q4h - Speech and swallow eval pending COPD exacerbation - Continue Duoneb q6h - Switch Solumedrol 40 mg BID to Decadron 6 mg daily Bibasilar consolidation - Sputum cx: normal rian, blood cx negative, urine cx negative. Cephalosporin allergy 11/21 was a GI S/E. - Continue azithromycin and ceftriaxone. Currently day 4 of 7. Pulmonary Congestion with KARINA- some KARINA 2/2 diuresis, with KCL supplementation - Monitor BMP and replace K+ as necessary Hyperlipidemia - Continue Atorvastatin 40mg daily HTN - Continue Propranolol. Hold Lisinopril and Triamtrene/HCTZ due to KARINA Cardio/DVT/GI Prophylaxis - Continue aspirin - Continue Heparin drip, SCD and TEDs (Lovenox contra-indicated due to KARINA) - Protonix 40 mg IV daily discontinued Atrial Fibrillation - this has been a listed problem on patients file for the past several years. However, in previous inpatient and outpatient encounters, no documented A.fib on EKG, none seen on monitor since admission, perusal of outpatient documents don't mention active a.fib management. It is possible this was a paroxysmal, rather than ongoing event. DM - Continue Lantus 10 units daily + sliding scale Dispo - OT/PT evals pending Code status - Full Code Continued [facility] stay due to: other Discharge planning: home Resident Tracking Resident Involvement: Resident Care Provided Care Provided: Adult Hospital Medicine History Resident Physician Supervision Note: I was present with Dr. Glaser during the history and exam. I discussed the case with the resident and agree with the findings and plan as documented in the note. Any exceptions or clarifications are listed here. Pt seen and examined at bedside. Extubation successful, resting on room air though fatigued with even basic movements. Somewhat hoarse w/ mild pharyngitis. General Appearance: WD/WN, no apparent distress Respiratory: chest non-tender, no accessory muscle use, respiratory distress ( mild), decreased breath sounds (throughout, worse in the LLL; improved w/ good air movement), wheezing (scattered) Cardiovascular: normal peripheral pulses, regular rate, rhythm Assessment/Plan 76 y/o female h/o COPD presents w/ ARF 2/2 CAP and COPD exacerbation COPD exacerbation w/ emphysema, VDRF - extubated - continue duonebs, solumedrol. Entry Level Sales Consultant management appreciated.S/S eval pending Basilar consolidation w/ neg BCx, nl sputum cx - Continue azithromycin and cefepime (day 4) Pulmonary congestion in setting of KARINA - continue gentle diuresis with close BMP monitoring HTN - continue propranolol, holding lisinopril, Triamterene/HCTZ Hyperglycemia on steroids - ISS, FSBS monitoring
--- NOTE | 2016-11-25 07:17 | DIAGNOSTIC IMAGING REPORT ---
CHEST ONE VIEW PORTABLE CLINICAL HISTORY: Exacerbation of COPD. Pneumonia. COMPARISON STUDY: 11/24/2016 FINDINGS: The chest has an emphysematous configuration. There is endotracheal tube 36 mm above the unruly. There is a nasogastric tube which passes in the stomach. There is no change in the position of the right-sided PICC catheter. There are nonspecific bibasal airspace opacities. There is a 5 mm right midlung zone nodule, likely postinflammatory[ IMPRESSION: Emphysema. Stable nonspecific bibasilar opacities (atelectatic versus inflammatory) Electronically signed by: Boo Kaplan M.D. 11/25/2016 7:16 AM Dictated Date/Time: 11/25/2016 7:13 AM
[2016-11-25] MEDS: SENNA 8.6 MG TAB PO SCH (07:24)
[2016-11-25] MEDS: ATORVASTATIN 40 MG TAB PO SCH (07:24)
[2016-11-25] MEDS: ROFLUMILAST 500 MCG TAB PO SCH (07:24)
[2016-11-25] MEDS: PROPRANOLOL HCL 80 MG TAB PO SCH ×2 (07:24→20:33)
[2016-11-25] MEDS: ASPIRIN 81 MG CHEW PO SCH (07:25)
[2016-11-25] MEDS: CHLORHEXIDINE GLUCONATE 0.12% 480 ML MT SCH (07:30)
[2016-11-25] MEDS ORDERED: POTASSIUM PHOS 3 MMOL/1 ML INFUSION IV STA (08:56)
[2016-11-25] MEDS ORDERED: CHLOROTHIAZIDE INJ 500 MG in DEXTROSE 5% 50ML 50 ML IV ONE (09:00)
[2016-11-25] MEDS ORDERED: POTASSIUM PHOSPHATE INJ 21 MMOL in SODIUM CHLORIDE 0.9% 500ML 500 ML IV ONE (09:30)
[2016-11-25] MEDS ORDERED: ALBUT/IPRATROP 3MG/0.5MG NEB 3 ML VIAL INH PRN (09:30)
--- NOTE | 2016-11-25 09:37 | Medical Consult ---
Consultation Date of Consultation: Nov 25, 2016. Attending Physician: Javier Reed MD Reason for Consultation: Achromobacter, multiple allergies History of Present Illness The patient is a 76-year-old female with history of COPD who presented to the emergency department with complaints of weakness, shortness of breath, productive cough, lower extremity edema, and decrease in appetite. The patient was intubated shortly after her arrival to the hospital. Upon initial evaluation, the patient did have a chest x-ray completed which showed a bibasilar infiltrates. She was placed in the intensive care unit for further treatment. She was noted to have a normal white blood cell count of 10.16 on admission. Her ESR was 47. Her carbon dioxide level was 47. Her CRP it was 2.79. A procalcitonin was completed on 11/23 which was less than 0.05. The patient did have a negative MRSA screen. Sputum culture is growing Achromobacter Xylosoxidans and and Haemophilus influenzae beta lactamase positive. The Achromobacter growing in her culture shows resistance to all antibiotics other than Primaxin and Bactrim. The patient is noted to be trimethoprim allergic. She was placed on IV ceftriaxone and azithromycin due to multiple antibiotic allergies. The patient's blood cultures are showing no growth to date, and her urine cultures have been negative. She is extubated at this time and is breathing on her own. She does continue to have nasal cannula oxygen in place. She states that she is feeling much better, but continues to feel very weak and mildly short of breath. She has completed 4 days of IV ceftriaxone and azithromycin. She has a mildly improved at this time. Her repeat chest x-rays continued to show bibasilar airspace opacities. Past Medical/Surgical History Medical Problems: (1) Altered mental status Status: Acute (2) COPD exacerbation Status: Acute (3) Hyperkalemia Status: Acute (4) Hypoxia Status: Acute (5) Pneumonia Status: Acute (6) Respiratory acidosis Status: Acute Medical Problems: (1) Acute respiratory failure (2) KARINA (acute kidney injury) (3) Atrial Fibrillation (4) Chronic intermittent steroid use (5) Chronic Respiratory Failure (6) COPD (chronic obstructive pulmonary disease) (7) Hyperlipidemia Nec/Nos (8) Hypertension Nos Family History FH: heart disease Noncontributory Social History Smoking Status: Current Every Day Smoker Marital Status: Housing Status: lives with significant other Occupation Status: retired Allergies Coded Allergies: Penicillins (Verified Allergy, Intermediate, HIVES, 08/16/14) Tetracycline (Verified Allergy, Mild, RASH, 08/16/14) Doxycycline (Verified Allergy, Unknown, RASH, 08/16/14) Sulfamethoxazole (Verified Allergy, Unknown, 08/16/14) Replaces SULFAMETHOXAZ Trimethoprim (Verified Allergy, Unknown, 08/16/14) Replaces SULFAMETHOXAZ Cephalosporins (Verified Adverse Reaction, Mild, CEPHALEXIN--GI, 11/22/16) Home Medications Reported Home Medications Medications Dose Route/Sig Max Daily Dose Days Date Category Dose Instructions Multivitamin (Multivitamins) Tab 1 Tab PO DAILY 11/21/16 Reported Triamterene/Hctz 37.5-25MG (Triamterene/HCTZ) 1 Tab Tab 1 Tab PO BID 11/21/16 Reported Prednisone 10 Mg Tab 10 Mg PO DIRECTED 11/21/16 Reported TAKE 1 TABLET DAILY WITH FOOD FOR CHRONIC BRONCHITIS, EXACERBATION TAKE 4 TABLETS DAILY FOR 10 DAYS THEN DECREASE TO 2 TABLETS DAILY FOR 10 DAYS Montelukast Sodium 10 Mg Tab 10 Mg PO QPM 11/21/16 Reported Zestril (Lisinopril) 5 Mg Tab 5 Mg PO DAILY 11/21/16 Reported Levaquin (Levofloxacin) 500 Mg Tab 500 Mg PO DIRECTED 11/21/16 Reported USE PRN WHEN CHEST FEELS TIGHT Duoneb (Ipratropium-Albuterol) 3 Ml Nebu 1 Vial NEB Q4H PRN 11/21/16 Reported Reny Allergy (Fexofenadine Hcl) 180 Mg Tab 180 Mg PO BID 11/21/16 Reported Kp Ferrous Sulfate (Ferrous Sulfate) 325 Mg Tab 325 Mg PO DAILY 11/21/16 Reported Daliresp (Roflumilast) 500 Mcg Tab 500 Mcg PO DAILY 11/21/16 Reported Brovana (Arformoterol Tartrate) 15 Mcg/2 Ml Neb 1 Vial NEB BID 11/21/16 Reported Ipratropium Wendell (Ipratropium Wendell (Nasal)) 0.03 % Spr 4 Puff INH Q4H PRN 11/21/16 Reported Senna Lax (Senna) 8.6 Mg Tab 8.6 Mg PO QAM 30 08/19/14 Rx Spiriva Handihaler (Tiotropium Wendell) 30 Puff/540 Mcg Aerp 2 Puffs INH DAILY 08/16/14 Reported Lipitor (Atorvastatin Calcium) 40 Mg Tab 40 Mg PO DAILY 08/16/14 Reported Oxygen Gas 4 Liters NA UD 06/10/12 Reported 4 LITERS TWICE DAILY Pulmicort Respules 0.5MG/2ML (Budesonide) 0.5 Mg/2 Ml Nebu 2 Ml INH Q12HR 06/10/12 Reported Mucinex Ext Rel (Guaifenesin) 600 Mg Tab 600-1,200 Mg PO BID PRN 06/10/12 Reported Ecotrin Or Generic (Aspirin) 81 Mg Tab 81 Mg PO DAILY 06/10/12 Reported Inderal (Propranolol HCl) 80 Mg Tab 80 Mg PO BID 07/15/10 Reported Current Inpatient Medications Current Inpatient Medications Medications (Trade) Dose Ordered Sig/Omkar Route Start Time Stop Time Status Last Admin Dose Admin Heparin Sodium (Porcine) (Heparin Sq 5000 Unit/0.5ml) 5,000 unit Q8 SQ 11/21/16 15:45 12/21/16 15:44 11/24/16 21:43 5,000 UNIT Acetaminophen (Tylenol Tab) 650 mg Q4H PRN PO 11/21/16 15:45 12/21/16 15:44 Atorvastatin Calcium (Lipitor Tab) 40 mg DAILY PO 11/22/16 09:00 12/22/16 08:59 11/25/16 07:24 40 MG Montelukast Sodium (Singulair Tab) 10 mg QPM PO 11/21/16 21:00 12/21/16 20:59 11/24/16 21:36 10 MG Propranolol HCl (Inderal Tab) 80 mg BID PO 11/21/16 21:00 12/21/16 20:59 11/25/16 07:24 80 MG Roflumilast (Daliresp Tab) 500 mcg DAILY PO 11/22/16 09:00 12/22/16 08:59 11/25/16 07:24 500 MCG Senna 8.6 mg 8.6 mg QAM PO 11/22/16 09:00 12/22/16 08:59 11/25/16 07:24 8.6 MG Azithromycin/ Dextrose (Zithromax IV/D5 250ml) 255 ml @ 125 mls/hr DAILY@1400 IV 11/22/16 14:00 11/29/16 13:59 11/24/16 13:55 125 MLS/HR Aspirin 81 mg 81 mg DAILY PO 11/23/16 09:00 12/23/16 08:59 11/25/16 07:25 81 MG Ceftriaxone Sodium/Dextrose (Rocephin Inj/D5 50ml) 60 ml @ 120 mls/hr DAILY@1400 IV 11/23/16 14:00 11/29/16 13:59 11/24/16 13:55 120 MLS/HR Insulin Aspart (novoLOG ASPART) SLIDING SCALE Q4 SC 11/24/16 12:00 12/24/16 11:59 11/25/16 04:58 5 UNITS Insulin Aspart (novoLOG ASPART) SLIDING SCALE Q4 SC 11/24/16 12:00 12/24/16 11:59 11/25/16 07:33 5 UNITS Heparin Sodium (Porcine) 5 ml 5 ml PRN PRN FLUSH 11/25/16 04:15 12/25/16 04:14 Dexamethasone Sodium Phosphate/ Syringe (Decadron Inj/ Syringe) 1.5 ml @ 1 mls/min Q24H IV 11/25/16 12:00 12/25/16 11:59 Albuterol/ Ipratropium 3 ml 3 ml QIDR INH 11/25/16 12:00 12/25/16 11:59 Potassium Phosphate/Sodium Chloride (Potassium Phosphate Inj/Nss 500ml) 507 ml @ 169 mls/hr TODAY@0930 ONCE IV 11/25/16 09:30 11/25/16 12:29 Albuterol/ Ipratropium (Duoneb) 3 ml Q2R PRN INH 11/25/16 09:30 12/25/16 09:29 Review of Systems Constitutional: + fatigue, + weakness, No fever Eyes: No worsening of vision ENT: No hearing loss Respiratory: + cough, + shortness of breath, + sputum Cardiovascular: No chest pain Abdomen: No nausea, No pain Musculoskeletal: + swelling (BL LE), No joint pain Genitourinary - Female: No dysuria Integumentary: No itch, No new/changing skin lesions, No rash Physical Exam Date Time Temp Pulse Resp B/P Pulse Ox O2 Delivery O2 Flow Rate FiO2 11/25/16 09:28 37.2 84 22 134/49 95 High Flow Oxygen 45 11/25/16 07:30 Mechanical Ventilator 35 11/25/16 07:30 36.9 84 16 142/68 93 CPAP 35 Mechanical Ventilator 11/25/16 07:30 35 11/25/16 07:30 35 11/25/16 06:00 80 15 130/54 95 CPAP Mechanical Ventilator 11/25/16 05:30 35 11/25/16 04:00 35 11/25/16 04:00 Mechanical Ventilator 35 11/25/16 04:00 37.2 76 17 136/51 97 Mechanical Ventilator 35 11/25/16 03:00 78 16 134/62 98 11/25/16 02:35 35 11/25/16 02:00 71 16 116/57 98 Mechanical Ventilator 35 11/25/16 00:00 37.2 70 16 122/51 98 Mechanical Ventilator 35 11/24/16 23:59 35 11/24/16 23:59 Mechanical Ventilator 35 11/24/16 23:40 35 11/24/16 23:00 82 24 95 11/24/16 22:01 73 13 141/56 97 Mechanical Ventilator 35 11/24/16 21:00 71 16 127/50 98 35 11/24/16 20:39 35 11/24/16 20:00 35 11/24/16 20:00 37.4 74 15 125/52 97 Mechanical Ventilator 35 11/24/16 20:00 Mechanical Ventilator 35 11/24/16 18:01 75 16 141/61 97 11/24/16 17:57 36.6 71 16 125/60 97 Mechanical Ventilator 35 11/24/16 17:50 35 11/24/16 17:30 70 16 97 11/24/16 17:00 75 16 125/60 96 11/24/16 16:30 73 16 97 11/24/16 16:01 70 16 137/48 98 11/24/16 15:30 35 11/24/16 15:30 36.6 70 16 107/44 96 Mechanical Ventilator 35 11/24/16 15:30 69 17 97 11/24/16 15:30 Mechanical Ventilator 35 11/24/16 14:10 35 11/24/16 14:00 81 20 118/52 99 Mechanical Ventilator 35 11/24/16 12:00 97 Mechanical Ventilator 35 11/24/16 12:00 36.8 72 16 121/59 97 Mechanical Ventilator 35 11/24/16 12:00 35 11/24/16 10:30 35 11/24/16 10:00 37.0 68 16 127/46 99 Mechanical Ventilator 35 General Appearance: WD/WN, no apparent distress Head: normocephalic, atraumatic Eyes: normal inspection, sclerae normal ENT: hearing grossly normal Neck: supple, trachea midline Respiratory/Chest: chest non-tender, normal breath sounds, no respiratory distress, no accessory muscle use, + pertinent finding (nasal cannula O2) Cardiovascular: regular rate, rhythm, no murmur Abdomen/GI: normal bowel sounds, non tender, soft Extremities/Musculoskelatal: normal inspection, + pedal edema (mild edema B/L feet) Neurologic/Psych: alert, normal mood/affect Skin: normal color, warm/dry, no rash Laboratory Results CHEST ONE VIEW PORTABLE CLINICAL HISTORY: Exacerbation of COPD. Pneumonia. COMPARISON STUDY: 11/24/2016 FINDINGS: The chest has an emphysematous configuration. There is endotracheal tube 36 mm above the unruly. There is a nasogastric tube which passes in the stomach. There is no change in the position of the right-sided PICC catheter. There are nonspecific bibasal airspace opacities. There is a 5 mm right midlung zone nodule, likely postinflammatory[ IMPRESSION: Emphysema. Stable nonspecific bibasilar opacities (atelectatic versus inflammatory) SINGLE VIEW CHEST CLINICAL HISTORY: Sepsis. FINDINGS: An AP, portable, upright chest radiograph is compared to study dated 08/16/2014 and correlated with chest CT dated 06/10/2012. The examination is degraded by portable technique and patient rotation. An endotracheal tube has been placed. The tip of the catheter projects 2.5 cm above the unruly. The heart is normal for projection and there is atherosclerotic calcification of the thoracic aorta. The pulmonary vasculature is noncongested. Emphysema and chronic interstitial thickening are similar to previous. There is bibasilar patchy airspace consolidation and small pleural effusions. A calcified granuloma is noted at the right apex. No pneumothorax is seen. The skeletal structures are osteopenic. The bony thorax is grossly intact. IMPRESSION: 1. An endotracheal tube has been placed. The tip of the catheter projects 2.5 cm above the unruly. 2. Emphysema. 3. There is bibasilar patchy airspace consolidation with small pleural effusions. The appearance is typical for pneumonia/aspiration pneumonitis. Clinical correlation will be required and radiographic follow-up to resolution is recommended. RUN DATE: 11/25/16 [facility] PAGE 1 RUN TIME: 829 Specimen Inquiry PATIENT: GEM CONLEY [facility] # : [id number] AGE/SX: 76/F ROOM: E104 REG : 11/21/[address]: Javier Reed, : 1940 BED: 1 DIS : STATUS: ADM IN TLOC: SPEC #: [id number] NIKOLAY: 11/21/16-UNK STATUS: COMP REQ #: [id number] RECD: 11/21/16-[address]: Lewis Falk MD SOURCE: SPUTUM ENTR: 11/21/16-[address] [facility] [address]: Adal Allen D.O. [facility]: EXP.[email or web address] Yadira Alejandro MD Maurer, Candace, C.RSoyNSoyP ORDERED: SPUT CULT/SMR COMMENTS: Has Specimen Been Obtained/Collected? Y Procedure Result Verified Site GRAM STAIN Final 11/22/16-0748 RESULT MANY POLYS RARE EPITHELIAL CELLS MANY GRAM NEGATIVE COCCOBACILLI RARE GRAM NEGATIVE DIPLOCOCCI RARE GRAM NEGATIVE BACILLI RARE GRAM POSITIVE COCCI RARE GRAM POSITIVE BACILLI SPUTUM CULTURE Final 11/25/16-08 Organism 1 ACHROMOBACTER XYLOSOXIDANS QUANITY MODERATE SENS SENSITIVITY TO FOLLOW NORMAL TANIYA LIGHT NORMAL TANIYA Organism 2 HAEMO. INFLU BETALACTAMASE POS QUANITY MODERATE SENS SENSITIVITY TO FOLLOW SENSITIVITY RESULT INDICATES A MULTIPLY - RESISTANT ORGANISM. PHONED TO MARCIO MACIAS [facility], [facility] ON 11/25/16 AT 0804 BY Hi Brown. Results were verbalized back to CHELITA. 1. ACHROMOBACTER XYLOSOXIDANS Target Route Dose RX AB Cost M.I.C. IQ ------ ----- ------ -- ------ -------- - ------ TRIMET/SULFA S <=2/38 CEFTAZIDIME R >16 CEFEPIME R >16 IMIPENEM S <=1 AZTREONAM R >16 GENTAMICIN R >8 TOBRAMYCIN R >8 AMIKACIN R >32 CIPROFLOXACIN R >2 LEVOFLOXACIN R >4 PIP/TAZO R >64 CONTINUED ON NEXT PAGE RUN DATE: 11/25/16 [facility] PAGE 2 RUN TIME: 829 Specimen Inquiry SPEC: [id number] PATIENT: GEM CONLEY [id number] ( Continued) Procedure Result Verified Site SPUTUM CULTURE Final (continued) 11/25/16-828 2. HAEMO. INFLU BETALACTAMASE POS Target Route Dose RX AB Cost Zone Sz ------ ----- ------ -- ------ -- ------- AMPICILLIN R 6 CEFTRIAXONE S 28 CEFUROXIME S 20 CHLORAMPHENICOL S 34 CLARITHROMYCIN R 6 CIPROFLOXACIN S 37 IMIPENEM S 18 TETRACYCLINE S 29 TRIM/SULF R 6 S = SENSITIVE I = INTERMEDIATE R = RESISTANT Item Value Date Time Urine Culture - Final Complete 11/22/16 1000 Urine,Catheterized NO GROWTH - LESS THAN 1,000 COLONIES/ML Urine Culture - Final Complete 11/21/16 1535 Urine,Catheterized THREE TYPES OF ORGANISMS PRESENT, ALL... Blood Culture - Preliminary Resulted 11/21/16 1454 Blood NO GROWTH TO DATE. Blood Culture - Preliminary Resulted 11/21/16 1442 Blood NO GROWTH TO DATE. Gram Stain - Final Complete 11/21/16 0000 Sputum Expectorated Sputum MRSA DNA Surveillance Screen - Final Complete 11/21/16 0000 Nasal Specimen Negative for MRSA by DNA Probe Last 24 Hours Test 11/24/16 12:07 11/24/16 15:47 11/24/16 19:55 11/24/16 23:40 Bedside Glucose 177 mg/dl 216 mg/dl 250 mg/dl 166 mg/dl Test 11/25/16 04:53 11/25/16 05:34 Bedside Glucose 192 mg/dl White Blood Count 13.03 K/uL Red Blood Count 3.38 M/uL Hemoglobin 10.4 g/dL Hematocrit 33.9 % Mean Corpuscular Volume 100.3 fL Mean Corpuscular Hemoglobin 30.8 pg Mean Corpuscular Hemoglobin Concent 30.7 g/dl Platelet Count 209 K/uL Mean Platelet Volume 9.5 fL Neutrophils (%) (Auto) 89.5 % Lymphocytes (%) (Auto) 3.5 % Monocytes (%) (Auto) 6.6 % Eosinophils (%) (Auto) 0.1 % Basophils (%) (Auto) 0.0 % Neutrophils # (Auto) 11.66 K/uL Lymphocytes # (Auto) 0.46 K/uL Monocytes # (Auto) 0.86 K/uL Eosinophils # (Auto) 0.01 K/uL Basophils # (Auto) 0.00 K/uL RDW Standard Deviation 52.5 fL RDW Coefficient of Variation 14.5 % Immature Granulocyte % (Auto) 0.3 % Immature Granulocyte # (Auto) 0.04 K/uL Venous Blood pH 7.43 Venous Blood Partial Pressure CO2 64 mmHg Venous Blood Partial Pressure O2 43 mmHg Venous Blood HCO3 42 mmol/L Venous Blood Oxygen Saturation 73.9 % Venous Blood Base Excess 15.1 mmol/L Sodium Level 146 mmol/L Potassium Level 3.9 mmol/L Chloride Level 101 mmol/L Carbon Dioxide Level 40 mmol/L Anion Gap 5.0 mmol/L Blood Urea Nitrogen 73 mg/dl Creatinine 1.40 mg/dl Est Creatinine Clear Calc Drug Dose 33.3 ml/min Estimated GFR () 41.9 Estimated GFR (Non- 36.2 BUN/Creatinine Ratio 51.8 Random Glucose 214 mg/dl Calcium Level 9.2 mg/dl Phosphorus Level 2.2 mg/dl Magnesium Level 2.5 mg/dl Total Bilirubin 0.3 mg/dl Aspartate Amino Transf (AST/SGOT) 7 U/L Alanine Aminotransferase (ALT/SGPT) 13 U/L Alkaline Phosphatase 43 U/L Total Protein 6.1 gm/dl Albumin 2.2 gm/dl Globulin 3.9 gm/dl Albumin/Globulin Ratio 0.6 Assessment & Plan Patient with SOB and productive cough now with Achromobacter xylosoxidans and H. Flu growing in sputum culture. Patient is currently on IV Ceftriaxone and Azithromycin. Based on CXR with possible bibasilar consolidation and sensitivities of culture, recommend D/C of current abx and change to IV Primaxin. Patient likely will need at least 5 days of treatment pending improvement. I did discuss this change with Dr. Krause and Darci Diaz PA-C. We will continue to follow. PROVIDER ADDENDUM: Patient examined and reviewed with Ms. Estrada. Agree with above assessment.
[2016-11-25] MEDS: IMIPENEM/CILASTATIN IV 500 MG in DEXTROSE 5% 100ML 100 ML IV SCH ×2 (10:05→17:06)
--- NOTE | 2016-11-25 11:21 | Critical Care Progress Note ---
Critical Care Progress Note Date of Service Nov 25, 2016. ICU Day ICU Day Number: [address] Krause Subjective Patient denies any complaints Awake and alert, able to give yes and no answers Pain at this time No issues overnight per nursing Objective Constitutional: Vital signs as below were reviewed. Eyes: Pupils equal, round, and reactive to light. Extraocular muscles are intact. No proptosis. No photophobia. ENT: Mucous membranes are moist. Oropharynx is clear. No sinus tenderness. TMs are clear bilaterally. OG tube in place Cardiovascular: Heart with a regular rate and rhythm, no murmurs or gallops. No pedal edema appreciated. Respiratory: Coarse breath sounds bilaterally with faint expiratory wheezing bilaterally, improved from day prior; good air entry. No accessory muscle use. No retractions. No increased work of breathing. GI: Abdomen soft, nontender, nondistended. Normal active bowel sounds. No abdominal hernias appreciated. No rebound. No guarding. : No CVA tenderness appreciated. Musculoskeletal: No midline cervical or vertebral tenderness. No gross deformities. No bony tenderness. No calf swelling or tenderness. SCDs in place Integumentary: Warm, dry, no rashes appreciated. Neurological: Patient awakens to command. Follows simple commands. RASS Score 0 CAM-ICU Negative Lymph: No cervical lymphadenopathy appreciated. Assessment & Plan 76 year old female with the following problems - Hypercapnic respiratory failure - Acute COPD exacerbation - Emphysema - Community Acquired PNA - Fluid Overload/Pulmonary congestion - Chronic Hypertension - Acute Kidney Injury - Risk of stress gastritis - Risk for electrolyte abnormalities secondary to diuresis - Hyperglycemia The patient is tolerated spontaneous breathing trial and was successfully extubated this morning. Our plan for her is as follows: NEUROLOGICAL - GCS: 15 - RASS: 0; patient is awake and alert; able to follow simple commands at the bedside - Sedation: Midazolam to be discontinued today as patient will be extubated - Pain regimen: Continue Tylenol 650 mg q4 hr Continue Morphine 2 mg q 2 hours PRN for pain CARDIAC - BP: 120-40 systolic/70s diastolic MAP: At goal, greater than 65 - Fluids: None - Vasopressor support: None - Hypertension Continue to hold Lisinopril and Triamtrene/HCTZ due to ongoing KARINA Continue Propranolol RESPIRATORY - RR: 16 SpO2: 95-97% - Ventilator settings: Volume A/C; RR 16; Vt 500 ml; PEEP 5; FiO2 35% - Patient tolerated CPAP trial with PEEP 5, pressure support 0, FiO2 35% RSBI less than 105 Patient off vasopressors Currently meets indications to be extubated, and was activated successfully - Acute hypoxemic/hypercapneic respiratory failure Status post extubation Secondary to community-acquired pneumonia and COPD Exacerbation Restart DuoNeb nebulizers 4 times a day Stop Solu-Medrol; change to Decadron 6 mg daily Antibiotics as noted below Goals: Sat 88-92%; Baseline oxygen requirements 4 L by nasal cannula - Community-acquired pneumonia - As above; see antibiotics below - COPD exacerbation - As above GASTROINTSTINAL - Diet: Nothing by mouth; we'll do speech and swallow evaluation and restart oral feeding if patient can tolerate - GI Prophylaxis: Protonix 40 mg IV daily - Bowel regimen: Patient had 2 bowel movements in last 24 hours RENAL//ENDOCRINE - Fluid Balance 24 hour: In 1749 ml / Out 1700 ml / Net +49 ml Cumulative: In 7593 ml / Out 5595 ml / Net +1998 mL Patient is net positive for 24 hours and cumulative; goal negative fluid balance; Diuril 500 mg IV Goal is to have patient net negative for today - 24-hour UO: 1.09 ml/kg/hr - Cr: 1.4, improved from 1.7 yesterday (Baseline: 0.9-1.1) - Electrolytes: NA 146, K3.9, chloride 101, bicarbonate 40, BUN 73, creatinine 1.4 Phos 2.2 Mag 2.5 - Acute Kidney Injury - Cr. 1.4 today - Continue to monitor daily BMP - Positive fluid balance -Will give single dose of Diuril as noted above - Hyperglycemia - Sliding Scale; patient is acutely ill on steroids are being weaned - BSG ranging 120-190 from overnight. - Continue Lantus 10 units daily HEME/INFECTIOUS DISEASE - Tmax: 37.4 WBC: 13 (improving from 16) - Hb/Hct 10.4/33.9, stable - Plt: 209, stable - ID consulted; recommendations appreciated - Community Acquired PNA No hospitalizations since 2013 Currently IV azithromycin and Rocephin; patient is currently on day 4 of 7 treatment ID recommends change to Imipenem with treatment of 5 days - DVT Prophylaxis Heparin 5000 s.c q 8 hours; SCD and TEDs LINES/IV ACCESS - Left forearm 22-gauge - Right arm PICC CODE STATUS - Full Code DISPOSITION - Remain in ICU through today; patient continues to improve we'll evaluate for downgrade - OT and PT consults will be placed at this time for further evaluation Resident Physician Supervision Note: Dr. Carmona was resident physician during care of patient. I separately evaluated patient and did history and exam. I discussed the case with the resident and generally agree with the findings and plan. Patient successfully liberated from the event today. Patient has cultured a multidrug resistant organism from bronchoscopy, however she has been improving clinically. Placed into contact precautions I have personally spent 45 minutes of critical care time in the direct management of this patient. This is a life/limb threatening event. This includes time spent evaluating patient, direct bedside care, chart review, placing orders, interpretation of diagnostic studies, discussion with consultants, patient, and family members, as well as other required patient management activities. This time is exclusive of all separately billable procedures, and teaching time and separate from and in addition to any other critical care service time. Documented By: Elie Krause DO Consults & Procedures Consultants: None Procedures: None Data Medications: Current Inpatient Medications Medications (Trade) Dose Ordered Sig/Omkar Route Start Time Stop Time Status Last Admin Dose Admin Heparin Sodium (Porcine) (Heparin Sq 5000 Unit/0.5ml) 5,000 unit Q8 SQ 11/21/16 15:45 12/21/16 15:44 11/24/16 21:43 5,000 UNIT Acetaminophen (Tylenol Tab) 650 mg Q4H PRN PO 11/21/16 15:45 12/21/16 15:44 Atorvastatin Calcium (Lipitor Tab) 40 mg DAILY PO 11/22/16 09:00 12/22/16 08:59 11/25/16 07:24 40 MG Montelukast Sodium (Singulair Tab) 10 mg QPM PO 11/21/16 21:00 12/21/16 20:59 11/24/16 21:36 10 MG Propranolol HCl (Inderal Tab) 80 mg BID PO 11/21/16 21:00 12/21/16 20:59 11/25/16 07:24 80 MG Roflumilast (Daliresp Tab) 500 mcg DAILY PO 11/22/16 09:00 12/22/16 08:59 11/25/16 07:24 500 MCG Senna (Senokot Tab) 8.6 mg QAM PO 11/22/16 09:00 12/22/16 08:59 11/25/16 07:24 8.6 MG Aspirin (Aspirin Chew) 81 mg DAILY PO 11/23/16 09:00 12/23/16 08:59 11/25/16 07:25 81 MG Insulin Aspart (novoLOG ASPART) SLIDING SCALE Q4 SC 11/24/16 12:00 12/24/16 11:59 11/25/16 04:58 5 UNITS Insulin Aspart (novoLOG ASPART) SLIDING SCALE Q4 SC 11/24/16 12:00 12/24/16 11:59 11/25/16 07:33 5 UNITS Heparin Sodium (Porcine) 5 ml 5 ml PRN PRN FLUSH 11/25/16 04:15 12/25/16 04:14 Dexamethasone Sodium Phosphate/ Syringe (Decadron Inj/ Syringe) 1.5 ml @ 1 mls/min Q24H IV 11/25/16 12:00 12/25/16 11:59 Albuterol/ Ipratropium 3 ml 3 ml QIDR INH 11/25/16 12:00 12/25/16 11:59 Potassium Phosphate/Sodium Chloride (Potassium Phosphate Inj/Nss 500ml) 507 ml @ 169 mls/hr TODAY@0930 ONCE IV 11/25/16 09:30 11/25/16 12:29 11/25/16 09:35 169 MLS/HR Albuterol/ Ipratropium 3 ml 3 ml Q2R PRN INH 11/25/16 09:30 12/25/16 09:29 Imipenem/ Cilastatin Sodium/ Dextrose (Primaxin Iv/D5 100ml) 110 ml @ 100 mls/hr Q8H IV 11/25/16 10:00 12/02/16 09:59 11/25/16 10:05 100 MLS/HR I & O: 24-Hour Column 11/25/16 08:00 Intake Total 1743 ml Output Total 1875 ml Balance -132 ml Vital Signs: Date Time Temp Pulse Resp B/P Pulse Ox O2 Delivery O2 Flow Rate FiO2 11/25/16 09:28 37.2 84 22 134/49 95 High Flow Oxygen 45 11/25/16 07:30 Mechanical Ventilator 35 11/25/16 07:30 36.9 84 16 142/68 93 CPAP 35 Mechanical Ventilator 11/25/16 07:30 35 3/29/17 07:30 35 11/25/16 06:00 80 15 130/54 95 CPAP Mechanical Ventilator 11/25/16 05:30 35 11/25/16 04:00 35 11/25/16 04:00 Mechanical Ventilator 35 11/25/16 04:00 37.2 76 17 136/51 97 Mechanical Ventilator 35 11/25/16 03:00 78 16 134/62 98 11/25/16 02:35 35 11/25/16 02:00 71 16 116/57 98 Mechanical Ventilator 35 11/25/16 00:00 37.2 70 16 122/51 98 Mechanical Ventilator 35 11/24/16 23:59 35 11/24/16 23:59 Mechanical Ventilator 35 11/24/16 23:40 35 11/24/16 23:00 82 24 95 11/24/16 22:01 73 13 141/56 97 Mechanical Ventilator 35 11/24/16 21:00 71 16 127/50 98 35 11/24/16 20:39 35 11/24/16 20:00 35 11/24/16 20:00 37.4 74 15 125/52 97 Mechanical Ventilator 35 11/24/16 20:00 Mechanical Ventilator 35 11/24/16 18:01 75 16 141/61 97 11/24/16 17:57 36.6 71 16 125/60 97 Mechanical Ventilator 35 11/24/16 17:50 35 11/24/16 17:30 70 16 97 11/24/16 17:00 75 16 125/60 96 11/24/16 16:30 73 16 97 11/24/16 16:01 70 16 137/48 98 11/24/16 15:30 35 11/24/16 15:30 36.6 70 16 107/44 96 Mechanical Ventilator 35 11/24/16 15:30 69 17 97 11/24/16 15:30 Mechanical Ventilator 35 11/24/16 14:10 35 11/24/16 14:00 81 20 118/52 99 Mechanical Ventilator 35 11/24/16 12:00 97 Mechanical Ventilator 35 11/24/16 12:00 36.8 72 16 121/59 97 Mechanical Ventilator 35 11/24/16 12:00 35 Laboratory Results: Last 24 Hours Test 11/24/16 12:07 11/24/16 15:47 11/24/16 19:55 11/24/16 23:40 Bedside Glucose 177 mg/dl 216 mg/dl 250 mg/dl 166 mg/dl Test 11/25/16 04:53 11/25/16 05:34 11/25/16 10:47 Bedside Glucose 192 mg/dl 120 mg/dl White Blood Count 13.03 K/uL Red Blood Count 3.38 M/uL Hemoglobin 10.4 g/dL Hematocrit 33.9 % Mean Corpuscular Volume 100.3 fL Mean Corpuscular Hemoglobin 30.8 pg Mean Corpuscular Hemoglobin Concent 30.7 g/dl Platelet Count 209 K/uL Mean Platelet Volume 9.5 fL Neutrophils (%) (Auto) 89.5 % Lymphocytes (%) (Auto) 3.5 % Monocytes (%) (Auto) 6.6 % Eosinophils (%) (Auto) 0.1 % Basophils (%) (Auto) 0.0 % Neutrophils # (Auto) 11.66 K/uL Lymphocytes # (Auto) 0.46 K/uL Monocytes # (Auto) 0.86 K/uL Eosinophils # (Auto) 0.01 K/uL Basophils # (Auto) 0.00 K/uL RDW Standard Deviation 52.5 fL RDW Coefficient of Variation 14.5 % Immature Granulocyte % (Auto) 0.3 % Immature Granulocyte # (Auto) 0.04 K/uL Venous Blood pH 7.43 Venous Blood Partial Pressure CO2 64 mmHg Venous Blood Partial Pressure O2 43 mmHg Venous Blood HCO3 42 mmol/L Venous Blood Oxygen Saturation 73.9 % Venous Blood Base Excess 15.1 mmol/L Sodium Level 146 mmol/L Potassium Level 3.9 mmol/L Chloride Level 101 mmol/L Carbon Dioxide Level 40 mmol/L Anion Gap 5.0 mmol/L Blood Urea Nitrogen 73 mg/dl Creatinine 1.40 mg/dl Est Creatinine Clear Calc Drug Dose 33.3 ml/min Estimated GFR () 41.9 Estimated GFR (Non- 36.2 BUN/Creatinine Ratio 51.8 Random Glucose 214 mg/dl Calcium Level 9.2 mg/dl Phosphorus Level 2.2 mg/dl Magnesium Level 2.5 mg/dl Total Bilirubin 0.3 mg/dl Aspartate Amino Transf (AST/SGOT) 7 U/L Alanine Aminotransferase (ALT/SGPT) 13 U/L Alkaline Phosphatase 43 U/L Total Protein 6.1 gm/dl Albumin 2.2 gm/dl Globulin 3.9 gm/dl Albumin/Globulin Ratio 0.6
[2016-11-25] MEDS: ALBUT/IPRATROP 3MG/0.5MG NEB 3 ML VIAL INH SCH ×3 (11:55→19:45)
[2016-11-25] MEDS ORDERED: DEXAMETHASONE INJ 6 MG in SYRINGE 0 ML IV SCH (12:00)
--- NOTE | 2016-11-25 12:01 | Pharmacy Progress Note ---
Glycemic Control: Progress Nt Date of Service Nov 25, 2016. Scope Glycemic Pharmacist consulted by Dr Krause on 11/24/16 for glycemic control and to write orders per [facility] inpatient glycemic control protocol. Objective Accuchecks BSG (last 24hrs): Test 11/24/16 12:07 11/24/16 15:47 11/24/16 19:55 11/24/16 23:40 Bedside Glucose 177 mg/dl (70-90) 216 mg/dl (70-90) 250 mg/dl (70-90) 166 mg/dl (70-90) Test 11/25/16 04:53 11/25/16 05:34 11/25/16 10:47 Bedside Glucose 192 mg/dl (70-90) 120 mg/dl (70-90) Random Glucose 214 mg/dl (70-99) Laboratory Data (last 24hrs) Test 11/25/16 05:34 Anion Gap 5.0 mmol/L BUN/Creatinine Ratio 51.8 Blood Urea Nitrogen 73 mg/dl Creatinine 1.40 mg/dl Potassium Level 3.9 mmol/L Sodium Level 146 mmol/L White Blood Count 13.03 K/uL Red Blood Count 3.38 M/uL Hemoglobin 10.4 g/dL Hematocrit 33.9 % Mean Corpuscular Volume 100.3 fL Mean Corpuscular Hemoglobin 30.8 pg Mean Corpuscular Hemoglobin Concent 30.7 g/dl Platelet Count 209 K/uL Mean Platelet Volume 9.5 fL Neutrophils (%) (Auto) 89.5 % Lymphocytes (%) (Auto) 3.5 % Monocytes (%) (Auto) 6.6 % Eosinophils (%) (Auto) 0.1 % Basophils (%) (Auto) 0.0 % Neutrophils # (Auto) 11.66 K/uL Lymphocytes # (Auto) 0.46 K/uL Monocytes # (Auto) 0.86 K/uL Eosinophils # (Auto) 0.01 K/uL Basophils # (Auto) 0.00 K/uL HbA1c: 5.8% 05/01/16 Recent Pertinent Medications Outpatient Anti-diabetic Regimen: * no prior dx of DM, no out-pt meds for DM * A1c = 5.8 % 05/01/16 The patient is currently receiving: * Basal insulin: Lantus 10 units SQ x 1 given yesterday AM * Correctional Insulin: Novolog Correction per scale Q 4 hours Goal Range: Low 140 mg/dL - High 180 mg/dL Correction Factor: 25 mg/dL/unit * Prandial insulin: Per carb ratio of 1 unit per 9 grams CHO consumed Risk Factors for Insulin Resistance: * Steroids: Solu-Medrol 40mg IV Q 12 hours --> changed to Dexamethasone 6mg IV Q 24 hours this AM * Infection: acute on chronic resp failure secondary to PNX / COPD exac; H influ + Achromobacter in sputum; abx changed to Primaxin * Diet: NPO at this time; tube feeds are off * Mechanical Ventilation: extubated at 0830 this AM Assessment & Plan ASSESSMENT: 11/24/16 * Patient remains on mechanical ventilation at this time - a SBT was attempted this AM, however she failed this trial due to ABGs * Tube feeds will continue for another 24 hours; steroid dose not to be tapered today * Glycemic control deteriorated with the addition of continuous tube feeds yesterday. Although this patient does not have a prior h/o DM, the IV Solu- Medrol is making her much more insulin resistant and carb sensitive. * Will add a carb ratio to the current Novolog order and change BSG frequency and Novolog coverage to Q 4 hours for now * Will give a single dose of Lantus this AM to help obtain glycemic control more quickly today 11/25/16 * BSGs ranged 166-250 over the last 24 hours while on vent, IV steroids and with Fibersource feeds at goal (50cc/hr); during this time 40 units of SQ insulin was given * This AM she was extubated, tube feeds are d/c'd and she may have her diet advanced. Also her steroid was changed to dexamethasone IV in a dose that is roughly ~40% of the daily solu-medrol equivalent - perhaps her insulin sensitivity will improve. * I do suspect her glycemic control will improve today w/ extubation - but will ultimately depend on PO intake as she is very carb sensitive while on corticosteroids. The carb ratio used w/ tube feeds was not successful to keep BSGs in goal range, however with the decrease in steroid dose I am hesitant to increase the prandial dose just yet. PLAN FOR INPATIENT GLYCEMIC CONTROL: * No basal insulin at this time - reassess need daily * Continue BSG frequency Q 4 hrs for now * Continue correction factor of 20 mg/dl/unit * Continue carb ratio of 1 unit per 9 grams CHO consumed * Continuing goal range of Low 140 mg/dL - High 180 mg/dL * Reassess insulin needs with each step down in steroid dose * Please note that the plan above was derived based on current level of insulin resistance and hospital stress. These recommendations are appropriate for inpatient admission only. Plan of care upon discharge will need to be reassessed to avoid potential outpatient hypo/hyperglycemia. Thank you.
[2016-11-25] MEDS: HEPARIN SOD 5000 UNIT/0.5 ML CARP SQ SCH ×2 (13:50→21:56)
[2016-11-25] MEDS: MONTELUKAST SOD 10 MG TAB PO SCH (20:33)
[2016-11-26] VITALS (27 sets, daily range): BP systolic 80–135; BP diastolic 34–80; PULSE 75–159; TEMP 36.5–36.7; O2SAT 81–100
[2016-11-26] MEDS ORDERED: ONDANSETRON 4 MG TAB PO PRN (00:30)
[2016-11-26] MEDS: IMIPENEM/CILASTATIN IV 500 MG in DEXTROSE 5% 100ML 100 ML IV SCH ×3 (02:01→17:57)
[2016-11-26] MEDS: INSULIN ASPART 100 UNITS/ML 3 ML PEN SC SCH ×6 (03:54→20:47)
[2016-11-26] MEDS: HEPARIN SOD 5000 UNIT/0.5 ML CARP SQ SCH ×2 (05:54→13:00)
[2016-11-26 06:08] LABS: COMPLETE YES; EOS % 0.4 %; HEMATOCRIT 37.1 % (37-47); IG% 0.4 %; LYMPH % 8.8 %; LYMPH ABS # 1.24 K/uL (1.2-3.4); MEAN CELL VOLUME 102.2 fL (80-100); MEAN CORPUSCULAR HGB CONC 29.4 g/dl (32-36); MEAN PLATELET VOLUME 9.7 fL (7.4-10.4); NEUT % 75.4 %; PLATELET COUNT 242 K/uL (130-400); RED BLOOD COUNT 3.63 M/uL (4.2-5.4); WHITE BLOOD COUNT 14.03 K/uL (4.8-10.8)
[2016-11-26 06:46] LABS: CALCIUM 9.2 mg/dl (8.5-10.1); CREATININE 0.95 mg/dl (0.60-1.20); MAGNESIUM 2.5 mg/dl (1.8-2.4); PHOSPHORUS 4.8 mg/dl (2.5-4.9); POTASSIUM 4.4 mmol/L (3.5-5.1)
--- NOTE | 2016-11-26 07:04 | Family Medicine Progress Note ---
Progress Note Date of Service Nov 26, 2016. Subjective Pt evaluation today including: conversation w/ patient, physical exam, chart review, lab review Patient says she is feeling well, although, she converted to atrial fibrillation at ~8am. She denies any symptoms of dyspnea on baseline 4L O2, chest pain, palpitations. She believes she can usually tell when she is in atrial fibrillation, but is asymptomatic currently. She denies any headaches, lightheadedness, abdominal pain. She is comfortable without any sore throat and is tolerating her soft diet well. Constitutional: No chills, No fever Respiratory: + cough, No shortness of breath, No sputum, No wheezing Cardiovascular: No chest pain, No edema, No palpitations Abdomen: No nausea, No pain, No vomiting Objective Vital Signs Date Time Temp Pulse Resp B/P Pulse Ox O2 Delivery O2 Flow Rate FiO2 11/26/16 06:00 36.5 82 24 110/57 94 Nasal Cannula 4.0 11/26/16 04:00 95 Nasal Cannula 4.0 11/26/16 04:00 36.5 75 24 135/54 95 Nasal Cannula 4.0 11/26/16 02:00 36.5 79 24 119/47 98 Nasal Cannula 4.0 11/26/16 00:01 98 Nasal Cannula 4.0 11/26/16 00:01 36.5 83 24 117/65 98 Nasal Cannula 4.0 11/25/16 22:00 36.8 82 24 125/48 98 Nasal Cannula 4.0 11/25/16 20:00 36.8 85 24 135/56 95 Nasal Cannula 4.0 11/25/16 20:00 95 Nasal Cannula 4.0 11/25/16 19:50 87 18 93 Nasal Cannula 4.0 11/25/16 18:00 91 24 116/50 95 Nasal Cannula 4.0 11/25/16 16:20 92 20 94 Nasal Cannula 40.0 40 11/25/16 16:00 92 High Flow Oxygen 40.0 40 11/25/16 16:00 36.7 84 26 124/51 92 High Flow Oxygen 40.0 40 11/25/16 13:30 37.0 80 24 132/53 89 High Flow Oxygen 40 11/25/16 13:00 81 132/53 91 11/25/16 12:00 81 129/51 95 11/25/16 11:55 84 20 92 Nasal Cannula 40.0 40 11/25/16 11:10 37.0 82 24 129/49 90 High Flow Oxygen 40 11/25/16 11:10 High Flow Oxygen 40 11/25/16 11:00 79 139/56 94 11/25/16 10:00 77 129/49 92 11/25/16 09:28 37.2 84 22 134/49 95 High Flow Oxygen 45 11/25/16 09:00 83 134/49 86 11/25/16 08:00 86 22 158/78 95 11/25/16 07:30 Mechanical Ventilator 35 11/25/16 07:30 36.9 84 16 142/68 93 CPAP 35 Mechanical Ventilator 11/25/16 07:30 35 11/25/16 07:30 35 11/25/16 07:00 89 21 142/68 92 Physical Exam General Appearance: WD/WN, no apparent distress Eyes: normal inspection ENT: hearing grossly normal Neck: supple Respiratory/Chest: lungs clear, normal breath sounds, no respiratory distress, no accessory muscle use Cardiovascular: + tachycardia, + irregularly irregular Abdomen: normal bowel sounds, non tender, soft Extremities: normal inspection, no pedal edema, no calf tenderness Neurologic/Psychiatric: alert, normal mood/affect, oriented x 3 Skin: normal color, warm/dry, no rash Laboratory Results Results Past 24 Hours Test 11/25/16 20:07 11/26/16 00:05 11/26/16 03:52 11/26/16 05:36 Range/Units Bedside Glucose 152 100 96 70-90 mg/dl White Blood Count 14.03 4.8-10.8 K/uL Red Blood Count 3.63 4.2-5.4 M/uL Hemoglobin 10.9 12.0-16.0 g/dL Hematocrit 37.1 37-47 % Mean Corpuscular Volume 102.2 80-100 fL Mean Corpuscular Hemoglobin 30.0 25-34 pg Mean Corpuscular Hemoglobin Concent 29.4 32-36 g/dl Platelet Count 242 130-400 K/uL Mean Platelet Volume 9.7 7.4-10.4 fL Neutrophils (%) (Auto) 75.4 % Lymphocytes (%) (Auto) 8.8 % Monocytes (%) (Auto) 15.0 % Eosinophils (%) (Auto) 0.4 % Basophils (%) (Auto) 0.0 % Neutrophils # (Auto) 10.56 1.4-6.5 K/uL Lymphocytes # (Auto) 1.24 1.2-3.4 K/uL Monocytes # (Auto) 2.11 0.11-0.59 K/uL Eosinophils # (Auto) 0.06 0-0.5 K/uL Basophils # (Auto) 0.00 0-0.2 K/uL RDW Standard Deviation 52.9 36.4-46.3 fL RDW Coefficient of Variation 14.1 11.5-14.5 % Immature Granulocyte % (Auto) 0.4 % Immature Granulocyte # (Auto) 0.06 0.00-0.02 K/uL Sodium Level 147 136-145 mmol/L Potassium Level 4.4 3.5-5.1 mmol/L Chloride Level 103 98-107 mmol/L Carbon Dioxide Level 41 21-32 mmol/L Anion Gap 3.0 3-11 mmol/L Blood Urea Nitrogen 61 7-18 mg/dl Creatinine 0.95 0.60-1.20 mg/dl Est Creatinine Clear Calc Drug Dose 48.9 ml/min Estimated GFR () 67.0 Estimated GFR (Non- 57.8 BUN/Creatinine Ratio 64.0 10-20 Random Glucose 91 70-99 mg/dl Calcium Level 9.2 8.5-10.1 mg/dl Phosphorus Level 4.8 2.5-4.9 mg/dl Magnesium Level 2.5 1.8-2.4 mg/dl Test 11/26/16 11:20 11/26/16 16:00 11/26/16 16:16 Range/Units Bedside Glucose 131 130 70-90 mg/dl White Blood Count 17.45 4.8-10.8 K/uL Red Blood Count 3.64 4.2-5.4 M/uL Hemoglobin 11.1 12.0-16.0 g/dL Hematocrit 37.6 37-47 % Mean Corpuscular Volume 103.3 80-100 fL Mean Corpuscular Hemoglobin 30.5 25-34 pg Mean Corpuscular Hemoglobin Concent 29.5 32-36 g/dl RDW Standard Deviation 52.5 36.4-46.3 fL RDW Coefficient of Variation 14.0 11.5-14.5 % Platelet Count 248 130-400 K/uL Mean Platelet Volume 9.8 7.4-10.4 fL Prothrombin Time 10.0 9.0-12.0 SECONDS Prothromb Time International Ratio 0.9 0.9-1.1 Activated Partial Thromboplast Time 22.3 21.0-31.0 SECONDS Partial Thromboplastin Ratio 0.9 Assessment and Plan 76 yo F w/ hx of COPD on home O2 @ 4L p/w acute worsening of SOB with acute hypoxic respiratory failure prior to arrival with VBG showing CO2 of 47 in addition to generalized weakness. H/o fall, and chronic LE edema. Atrial Fibrillation - first documented atrial fibrillation since admission. Hemodynamically stable. No response with morning dose of propranolol. Administered 15 mg Cardizem bolus - Consult cardiology - Continue monitoring vitals Acute on Chronic Respiratory Failure - likely due to COPD exacerbation in the setting of pneumonia based on CXR showing bibasilar consolidation. Patient successfully extubated 11/25/16, maintaining normal saturation with supplemental oxygen - Continue baseline oxygen supplementation with 4L oxygen via NC, maintain sats 88-92% - Speech and swallow eval recommends aspiration precautions UTI - colonized with achromobacter xylosoxidans and h.influenzae beta-lactamase (+) - Start imepenem/cilastatin. Currently day 1 of 5 Bibasilar consolidation - Sputum cx: normal rian, blood cx negative, urine cx negative. Cephalosporin allergy 11/21 was a GI S/E. - Covered with imepenem/cilastatin. Currently day 5 of 7. COPD exacerbation - Discontinue Duoneb q6h, and revert to home inhalers - Prednisone taper commenced Pulmonary Congestion with KARINA- some KARINA 2/2 diuresis, with KCL supplementation - Monitor BMP and replace K+ as necessary Hyperlipidemia - Continue Atorvastatin 40mg daily HTN - Continue Propranolol. Hold Lisinopril and Triamtrene/HCTZ due to KARINA Cardio/DVT/GI Prophylaxis - Continue aspirin - Continue Heparin drip, SCD and TEDs (Lovenox contra-indicated due to KARINA) - Protonix 40 mg IV daily discontinued DM - Continue Lantus 10 units daily + sliding scale Dispo - OT/PT evals pending Code status - Full Code Continued [facility] stay due to: abnormal vital signs Discharge planning: uncertain Resident Tracking Resident Involvement: Resident Care Provided Care Provided: Adult Hospital Medicine History Resident Physician Supervision Note: I was present with Dr. Glaser during the history and exam. I discussed the case with the resident and agree with the findings and plan as documented in the note. Any exceptions or clarifications are listed here. Pt seen and examined at bedside in the ICU prior to transfer. At time of examination, pt complains of mild worsening of shortness of breath and persistent palpitations which she associates with episodes of atrial fibrillation. She reports no lightheadedness, vision changes, VILLALOBOS, CP, sensation changes, n/v. General Appearance: mild distress Eye Exam: bilateral eye EOMI, bilateral eye PERRL Ears, Nose, Throat: normal ENT inspection, hearing grossly normal Neck: non-tender, full range of motion Respiratory: chest non-tender, lungs clear (though mildly decreased), respiratory distress (increased tachypnea) Cardiovascular: normal peripheral pulses, tachycardia, irregularly irregular Gastrointestinal: normal bowel sounds, non tender, soft, no organomegaly Assessment/Plan 76 y/o female h/o COPD presents w/ ARF 2/2 CAP and COPD exacerbation Hypotension with atrial fibrillation in RVR - rec'd fluid bolus, as well as cardizem IV and B-golden. At this time, digoxin was initiated. Cardiology has been consulted and is aware of this patient. They have initiated a cardizem drip and heparin for AC, upon re-assessment her symptoms of shortness of breath and palpitations, as well as her blood pressure, had improved. Basilar consolidation w/ sputum culture w/ achromobacter and h. flu - IV primaxin. ID consulted and management appreciated. COPD exacerbation w/ emphysema s/p intubation VDRF - continue duonebs, solumedrol. S/S evaluation reviewed Pulmonary congestion in setting of KARINA - trend BMP, repeat CXR HTN - continue propranolol, holding lisinopril, Triamterene/HCTZ Hyperglycemia on steroids - ISS, FSBS monitoring
[2016-11-26] MEDS: ALBUT/IPRATROP 3MG/0.5MG NEB 3 ML VIAL INH SCH (07:05)
[2016-11-26] MEDS: PROPRANOLOL HCL 80 MG TAB PO SCH ×2 (08:01→20:45)
[2016-11-26] MEDS: SENNA 8.6 MG TAB PO SCH (08:01)
[2016-11-26] MEDS: ROFLUMILAST 500 MCG TAB PO SCH (08:01)
[2016-11-26] MEDS: ATORVASTATIN 40 MG TAB PO SCH (08:01)
[2016-11-26] MEDS: ASPIRIN 81 MG CHEW PO SCH (08:02)
[2016-11-26] MEDS ORDERED: LEVALBUTEROL/IPRATROPIUM NEB INH PRN (09:15)
[2016-11-26] MEDS ORDERED: DILTIAZEM HCL 5 MG/ML 5 ML VIAL IV STA (09:15)
[2016-11-26] MEDS ORDERED: IPRATROPIUM BROMIDE NEB SOLN 0.02% 2.5 ML VIAL INH PRN (09:45)
[2016-11-26] MEDS ORDERED: LEVALBUTEROL 1.25MG/0.5ML NEB INH PRN (09:45)
--- NOTE | 2016-11-26 10:31 | Critical Care Progress Note ---
Critical Care Progress Note Date of Service Nov 26, 2016. ICU Day ICU Day Number: [address] Krause (5) Subjective Day 1 s/p extubation Patient went into Afib with RVR at 0800; no chest pain, palpitations, syncope. Shortness of breath is improving; she denies coughing or feeling chest tightness overnight. Feeling well today No complaints Breathing is improving A 10 point review of systems was negative unless stated above. Objective Constitutional: Vital signs as below were reviewed. Eyes: Pupils equal, round, and reactive to light. Extraocular muscles are intact. No proptosis. No photophobia. ENT: Mucous membranes are moist. Oropharynx is clear. No sinus tenderness. TMs are clear bilaterally. Cardiovascular: Heart with a regular rate and rhythm, no murmurs or gallops. No pedal edema appreciated. Respiratory: Clear breath sounds with mild expiratory wheezing. No accessory muscle use. No retractions. No increased work of breathing. GI: Abdomen soft, nontender, nondistended. Normal active bowel sounds. No abdominal hernias appreciated. No rebound. No guarding. : No CVA tenderness appreciated. Musculoskeletal: No midline cervical or vertebral tenderness. No gross deformities. No bony tenderness. No calf swelling or tenderness. SCDs in place Integumentary: Warm, dry, no rashes appreciated. Neurological: Patient awakens to command. Follows simple commands. CAM-ICU negative Alert and oriented x 3 Lymph: No cervical lymphadenopathy appreciated. Assessment & Plan 76 year old female on day 5 of ICU admission for community acquired PNA and COPD exaccerbation. She has done very well status day 1 post-extubation. She is stable for transfer to telemetry. She does have a remote history of paroxysmal atrial fibrillation and did unfortunately convert this morning. Fortunately, she remain asymptomatic but we will need to treat. If it persists long-term anticoagulation should be considered. Her problem list includes: - Hypercapnic respiratory failure - Acute COPD exacerbation - Emphysema - Community Acquired PNA - Afib with RVR - Chronic Hypertension - Acute Kidney Injury - Hyperglycemia Our plan for her is as follows: NEUROLOGICAL - GCS: 15 - CAM ICU negative - Off all sedation - Pain regimen: Continue Tylenol 650 mg q4 hr CARDIAC - BP: stable 110-130/40-60, MAPs meeting goal > 65 - Fluids: None - No vasopressor support - Hypertension Continue Propranolol Restart other home antihypertensives: Triamtrene/HCTZ and Lisinopril (KARINA resolved) - Afib with RVR Went into Afib at 0800 this morning Remained hemodynamically stable; denied symptoms of Afib Noted to have history of paroxysmal Afib with no occurences on this admission since now Gave AM propranolol dose without response in 30 minutes; proceeded with 15 mg Cardizem bolus; will continue to monitor Will defer decision for cardiac consultation to primary team. RESPIRATORY - RR: 24 - Saturatin 95% on 4 L by nasal cannula - Day 1 s/p extubation and doing well on baseline home O2 of 4 L by NC - Acute hypoxemic/hypercapneic respiratory failure Resolved; Status post extubation day 1 Secondary to community-acquired pneumonia and COPD Exacerbation Start Prednisone 40 mg today x 2 days; then drop to 30 mg x 2 days; then 20 mg x 2 days; then 10 mg x 2 days Nebulizers changed to Xopenex/Atrovent; frequency changed to QID PRN SOB/ Wheezing Goals: Sat 88-92% - Community-acquired pneumonia - As above; see antibiotics below - COPD exacerbation - Restart all home inhalers GASTROINTSTINAL - Diet: Restarted diet, tolerating well - Bowel regimen: Patient is having bowel movements RENAL//ENDOCRINE - Fluid Balance Yesterday; Patient Net + 50 Today so far: Net - 200 ml Total fluid balance: + 1749 Patient to restart home diuretic (Triamtrene/HCTZ) so hold off on IV diuretic today and recommend monitoring daily - Cr: 0.95, now back to baseline - Acute Kidney Injury - Resolved; back to baseline - Can restart home ACEi and Triamtrene/HCTZ - Hyperglycemia - BSGs well controlled; ranging 110-190 - Continue Sliding scale HEME/INFECTIOUS DISEASE - T: Afebrile WBC: 14, stable - Hb/Hct 10.9/37, stable - Plt: 242, stable - ID consulted; recommendations appreciated Recommend Imipenem course of 5 days - Community Acquired PNA Imipenem - DVT Prophylaxis Heparin 5000 s.c q 8 hours; SCD and TEDs LINES/IV ACCESS - Left forearm 22-gauge - Right arm PICC CODE STATUS - Full Code DISPOSITION - Patient currently does not require ICU-level cardiovascular or respiratory support - Patient is stable for transfer; I have discussed the case with the primary hospitalist service who will transfer the patient - PT and OT orders have been placed for the patient Resident Physician Supervision Note: Dr. Carmona was resident physician during care of patient. I separately evaluated patient and did history and exam. I discussed the case with the resident and generally agree with the findings and plan. -Patient improving from COPD, on steroid taper. Discussed with family medicine team regarding transfer to telemetry status shortly thereafter patient went into an episode of atrial fibrillation with rapid ventricular response. She did not feel the palpitations. We gave her 15 mg of diltiazem in attempt to slow her rate. This was unsuccessful and she continued to approach rates into the 140s. At this time I have given her IV digoxin initial load of 250 mg and another IV dose in 6 hours of 125 mg. I have slated IV digoxin at 125 mg to start tomorrow and we are checking a digoxin level with morning labs. I discussed this plan with the family medicine team attending Dr. Reed. I have personally spent 50 minutes of critical care time in the direct management of this patient. This is a life/limb threatening event. This includes time spent evaluating patient, direct bedside care, chart review, placing orders, interpretation of diagnostic studies, discussion with consultants, patient, and family members, as well as other required patient management activities. This time is exclusive of all separately billable procedures, and teaching time and separate from and in addition to any other critical care service time. Documented By: Elie Krause DO Consults & Procedures Consultants: None Procedures: None Data Medications: Current Inpatient Medications Medications (Trade) Dose Ordered Sig/Omkar Route Start Time Stop Time Status Last Admin Dose Admin Heparin Sodium (Porcine) (Heparin Sq 5000 Unit/0.5ml) 5,000 unit Q8 SQ 11/21/16 15:45 12/21/16 15:44 11/26/16 05:54 5,000 UNIT Acetaminophen (Tylenol Tab) 650 mg Q4H PRN PO 11/21/16 15:45 12/21/16 15:44 Atorvastatin Calcium (Lipitor Tab) 40 mg DAILY PO 11/22/16 09:00 12/22/16 08:59 11/26/16 08:01 40 MG Montelukast Sodium (Singulair Tab) 10 mg QPM PO 11/21/16 21:00 12/21/16 20:59 11/25/16 20:33 10 MG Propranolol HCl (Inderal Tab) 80 mg BID PO 11/21/16 21:00 12/21/16 20:59 11/26/16 08:01 80 MG Roflumilast (Daliresp Tab) 500 mcg DAILY PO 11/22/16 09:00 12/22/16 08:59 11/26/16 08:01 500 MCG Senna (Senokot Tab) 8.6 mg QAM PO 11/22/16 09:00 12/22/16 08:59 11/26/16 08:01 8.6 MG Aspirin (Aspirin Chew) 81 mg DAILY PO 11/23/16 09:00 12/23/16 08:59 11/26/16 08:02 81 MG Heparin Sodium (Porcine) 5 ml 5 ml PRN PRN FLUSH 11/25/16 04:15 12/25/16 04:14 Imipenem/ Cilastatin Sodium/ Dextrose (Primaxin Iv/D5 100ml) 110 ml @ 100 mls/hr Q8H IV 11/25/16 10:00 11/30/16 03:05 11/26/16 09:55 100 MLS/HR Ondansetron HCl (Zofran Tab) 4 mg Q4H PRN PO 11/26/16 00:30 12/26/16 00:29 11/26/16 03:06 4 MG Insulin Aspart (novoLOG ASPART) SLIDING SCALE ACHS SC 11/26/16 08:00 12/26/16 07:59 Arformoterol Tartrate (Brovana 15MCG/ 2ML Neb Soln) 15 mcg BIDR INH 11/26/16 20:00 12/26/16 19:59 Budesonide (Pulmicort Respules 0.5MG/ 2ML Neb Soln) 0.5 mg BIDR INH 11/26/16 20:00 12/26/16 19:59 Tiotropium [place] (Spiriva Handihaler Inhaler) 1 puff DAILY INH 11/27/16 09:00 12/27/16 08:59 Ipratropium [place] (Atrovent 0.02% 0.5MG/2.5ML Neb) 0.5 mg Q6H PRN INH 11/26/16 09:45 12/26/16 09:44 Levalbuterol (Xopenex 1.25MG/ 0.5ML Neb) 1.25 mg Q6H PRN INH 11/26/16 09:45 12/26/16 09:44 Prednisone (PredniSONE TAB) 40 mg NOW ONCE PO 11/26/16 12:00 11/26/16 12:01 Prednisone (PredniSONE TAB) 30 mg Taper DAILY@0800 PO 11/27/16 08:00 12/01/17 07:59 Lisinopril (Zestril Tab) 5 mg DAILY PO 11/27/16 09:00 12/27/16 08:59 Triamterene/HCTZ (Dyazide 37.5/25 Mg Cap) 1 cap DAILY PO 11/27/16 09:00 12/27/16 08:59 I & O: 24-Hour Column 11/26/16 08:00 Intake Total 1147 ml Output Total 1675 ml Balance -528 ml Vital Signs: Date Time Temp Pulse Resp B/P Pulse Ox O2 Delivery O2 Flow Rate FiO2 11/26/16 10:01 80 22 107/38 98 Nasal Cannula 4.0 11/26/16 09:30 108 90/55 95 11/26/16 09:00 113 121/55 96 11/26/16 08:00 36.7 144 26 127/49 93 Nasal Cannula 4.0 11/26/16 08:00 93 Nasal Cannula 4.0 11/26/16 07:56 111 120/69 93 11/26/16 07:05 85 18 94 Nasal Cannula 4.0 11/26/16 06:00 36.5 82 24 110/57 94 Nasal Cannula 4.0 11/26/16 04:00 95 Nasal Cannula 4.0 11/26/16 04:00 36.5 75 24 135/54 95 Nasal Cannula 4.0 11/26/16 02:00 36.5 79 24 119/47 98 Nasal Cannula 4.0 11/26/16 00:01 98 Nasal Cannula 4.0 11/26/16 00:01 36.5 83 24 117/65 98 Nasal Cannula 4.0 11/25/16 22:00 36.8 82 24 125/48 98 Nasal Cannula 4.0 11/25/16 20:00 36.8 85 24 135/56 95 Nasal Cannula 4.0 11/25/16 20:00 95 Nasal Cannula 4.0 11/25/16 19:50 87 18 93 Nasal Cannula 4.0 11/25/16 18:00 91 24 116/50 95 Nasal Cannula 4.0 11/25/16 16:20 92 20 94 Nasal Cannula 40.0 40 11/25/16 16:00 92 High Flow Oxygen 40.0 40 11/25/16 16:00 36.7 84 26 124/51 92 High Flow Oxygen 40.0 40 11/25/16 13:30 37.0 80 24 132/53 89 High Flow Oxygen 40 11/25/16 13:00 81 132/53 91 11/25/16 12:00 81 129/51 95 11/25/16 11:55 84 20 92 Nasal Cannula 40.0 40 11/25/16 11:10 37.0 82 24 129/49 90 High Flow Oxygen 40 11/25/16 11:10 High Flow Oxygen 40 11/25/16 11:00 79 139/56 94 Laboratory Results: Last 24 Hours Test 11/25/16 10:47 11/25/16 15:47 11/25/16 20:07 11/26/16 00:05 Bedside Glucose 120 mg/dl 149 mg/dl 152 mg/dl 100 mg/dl Test 11/26/16 03:52 11/26/16 05:36 Bedside Glucose 96 mg/dl White Blood Count 14.03 K/uL Red Blood Count 3.63 M/uL Hemoglobin 10.9 g/dL Hematocrit 37.1 % Mean Corpuscular Volume 102.2 fL Mean Corpuscular Hemoglobin 30.0 pg Mean Corpuscular Hemoglobin Concent 29.4 g/dl Platelet Count 242 K/uL Mean Platelet Volume 9.7 fL Neutrophils (%) (Auto) 75.4 % Lymphocytes (%) (Auto) 8.8 % Monocytes (%) (Auto) 15.0 % Eosinophils (%) (Auto) 0.4 % Basophils (%) (Auto) 0.0 % Neutrophils # (Auto) 10.56 K/uL Lymphocytes # (Auto) 1.24 K/uL Monocytes # (Auto) 2.11 K/uL Eosinophils # (Auto) 0.06 K/uL Basophils # (Auto) 0.00 K/uL RDW Standard Deviation 52.9 fL RDW Coefficient of Variation 14.1 % Immature Granulocyte % (Auto) 0.4 % Immature Granulocyte # (Auto) 0.06 K/uL Sodium Level 147 mmol/L Potassium Level 4.4 mmol/L Chloride Level 103 mmol/L Carbon Dioxide Level 41 mmol/L Anion Gap 3.0 mmol/L Blood Urea Nitrogen 61 mg/dl Creatinine 0.95 mg/dl Est Creatinine Clear Calc Drug Dose 48.9 ml/min Estimated GFR () 67.0 Estimated GFR (Non- 57.8 BUN/Creatinine Ratio 64.0 Random Glucose 91 mg/dl Calcium Level 9.2 mg/dl Phosphorus Level 4.8 mg/dl Magnesium Level 2.5 mg/dl
--- NOTE | 2016-11-26 12:36 | Pharmacy Progress Note ---
Glycemic Control: Progress Nt Date of Service Nov 26, 2016. Scope Glycemic Pharmacist consulted by Dr Krause on 11/24/16 for glycemic control and to write orders per [facility] inpatient glycemic control protocol. Objective Accuchecks BSG (last 24hrs): Test 11/25/16 15:47 11/25/16 20:07 11/26/16 00:05 11/26/16 03:52 Bedside Glucose 149 mg/dl (70-90) 152 mg/dl (70-90) 100 mg/dl (70-90) 96 mg/dl (70-90) Test 11/26/16 05:36 11/26/16 11:20 Random Glucose 91 mg/dl (70-99) Bedside Glucose 131 mg/dl (70-90) Laboratory Data (last 24hrs) Test 11/26/16 05:36 Anion Gap 3.0 mmol/L BUN/Creatinine Ratio 64.0 Blood Urea Nitrogen 61 mg/dl Creatinine 0.95 mg/dl Potassium Level 4.4 mmol/L Sodium Level 147 mmol/L White Blood Count 14.03 K/uL Red Blood Count 3.63 M/uL Hemoglobin 10.9 g/dL Hematocrit 37.1 % Mean Corpuscular Volume 102.2 fL Mean Corpuscular Hemoglobin 30.0 pg Mean Corpuscular Hemoglobin Concent 29.4 g/dl Platelet Count 242 K/uL Mean Platelet Volume 9.7 fL Neutrophils (%) (Auto) 75.4 % Lymphocytes (%) (Auto) 8.8 % Monocytes (%) (Auto) 15.0 % Eosinophils (%) (Auto) 0.4 % Basophils (%) (Auto) 0.0 % Neutrophils # (Auto) 10.56 K/uL Lymphocytes # (Auto) 1.24 K/uL Monocytes # (Auto) 2.11 K/uL Eosinophils # (Auto) 0.06 K/uL Basophils # (Auto) 0.00 K/uL HbA1c: 5.8% 05/01/16 Recent Pertinent Medications Outpatient Anti-diabetic Regimen: * no prior dx of DM, no out-pt meds for DM * A1c = 5.8 % 05/01/16 The patient is currently receiving: * Basal insulin: No Lantus given in last 24 hours * Correctional Insulin: Novolog Correction per scale Q 4 hours Goal Range: Low 140 mg/dL - High 180 mg/dL Correction Factor: 20 mg/dL/unit * Prandial insulin: Per carb ratio of 1 unit per 9 grams CHO consumed Risk Factors for Insulin Resistance: * Steroids: Solu-Medrol 40mg IV Q 12 hours --> changed to Dexamethasone 6mg IV Q 24h 11/25 --> Prednisone taper started today, 40mg x 1 11/26 * Infection: 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 Although this patient does not have a prior h/o DM, the IV Solu- Medrol is making her much more insulin resistant and carb sensitive. * Will add a carb ratio to the current Novolog order and change BSG frequency and Novolog coverage to Q 4 hours for now * Will give a single dose of Lantus this AM to help obtain glycemic control more quickly today 11/25/16 * BSGs ranged 166-250 over the last 24 hours while on vent, IV steroids and with Fibersource feeds at goal (50cc/hr); during this time 40 units of SQ insulin was given * This AM she was extubated, tube feeds are d/c'd and she may have her diet advanced. Also her steroid was changed to dexamethasone IV in a dose that is roughly ~40% of the daily solu-medrol equivalent - perhaps her insulin sensitivity will improve. * I do suspect her glycemic control will improve today w/ extubation - but will ultimately depend on PO intake as she is very carb sensitive while on corticosteroids. The carb ratio used w/ tube feeds was not successful to keep BSGs in goal range, however with the decrease in steroid dose I am hesitant to increase the prandial dose just yet. 11/26/16 * Glycemic control continues to improve * Steroids being changed again today, will begin a Prednisone taper. Today's Prednisone dose roughly equivalent to yesterday's Dexamethasone dose. Would expect similar insulin resistance however for a shorter duration of time. * Will continue to taper Novolog doses * No basal insulin required, FBS 90's this AM w/ no basal on board * Will likely need to remove carb ratio soon, possibly tomorrow PLAN FOR INPATIENT GLYCEMIC CONTROL: * No basal insulin at this time - reassess need daily * Change BSGs to ACHS * Change correction factor to 35 mg/dl/unit * Change carb ratio to 1 unit per 15 grams CHO consumed * Change goal range to Low 120 mg/dL - High 160 mg/dL * Reassess insulin needs with each step down in steroid dose * Please note that the plan above was derived based on current level of insulin resistance and hospital stress. These recommendations are appropriate for inpatient admission only. Plan of care upon discharge will need to be reassessed to avoid potential outpatient hypo/hyperglycemia. Thank you.
[2016-11-26] MEDS ORDERED: DILTIAZEM BOLUS / DRIP IV STA (15:24)
[2016-11-26] MEDS ORDERED: DIGOXIN IV 250 MCG in SYRINGE 9 ML IV ONE (15:30)
[2016-11-26] MEDS: DILTIAZEM HCL INJ 125 MG in DEXTROSE 5% 100ML IV PRN (15:55)
[2016-11-26] MEDS ORDERED: HEPARIN IV BOLUS 5,000 UNIT in SYRINGE 0 ML IV SCH (16:15)
--- NOTE | 2016-11-26 16:18 | Cardiology Consultation ---
Cardiology Consultation Date of Consultation: Nov 26, 2016. Requesting Physician: Dr. Glaser Reason for Consultation: AF Pt evaluation today including: conversation w/ patient, conversation w/ family , physical exam, lab review, review of studies, review of inpatient medication list History of Present Illness This is a 76-year-old woman who has a history of severe COPD (with a long smoking history) as well as diabetes mellitus, hypertension, hypercholesterolemia and anemia. She was admitted with respiratory failure and required intubation, she has now improved and has been extubated. This morning at around 8:00 she went into atrial fibrillation with a rapid heart rate, she was given a 15 mg bolus of diltiazem and she remains in atrial fibrillation with a somewhat rapid heart rate. She denies palpitations. From the cardiovascular standpoint as far as I know she has never had coronary artery disease identified, she has however evidently had atrial fibrillation in the past. Although I cannot find any direct mention of it in the office records she reports having it for many years and "doctoring" for it. By that she tells me that she was on Inderal for her atrial fibrillation, and she tells me she was on aspirin but denies ever being offered an anticoagulant. I can't tell from her history where or when the arrhythmia was diagnosed or how often she had it or its nature (brief or persistent episodes) and although she does say that at time she will have an irregular heart rate that might last days at a time. Past Medical/Surgical History (1) Atrial Fibrillation (2) Chronic Respiratory Failure (3) Hyperlipidemia Nec/Nos (4) Hypertension Nos (5) COPD (chronic obstructive pulmonary disease) (6) Anemia Family History FH: heart disease Social History Smoking Status: Current Every Day Smoker Review of Systems Constitutional: No fever, No weakness, No weight loss Respiratory: + shortness of breath, No cough Cardiac: No chest pain, No palpitations Abdomen: No GI bleeding, No diarrhea, No nausea, No pain, No vomiting Female : No problem reported Neurologic: No balance problems, No numbness/tingling, No paralysis, No weakness Heme: No abnormal bleeding/bruising, No clotting problems Endo: No fatigue Skin: No problem reported All Other Systems: Reviewed and Negative Allergies Coded Allergies: Penicillins (Verified Allergy, Intermediate, HIVES, 08/16/14) Tetracycline (Verified Allergy, Mild, RASH, 08/16/14) Doxycycline (Verified Allergy, Unknown, RASH, 08/16/14) Sulfamethoxazole (Verified Allergy, Unknown, 08/16/14) Replaces SULFAMETHOXAZ Trimethoprim (Verified Allergy, Unknown, 08/16/14) Replaces SULFAMETHOXAZ Cephalosporins (Verified Adverse Reaction, Mild, CEPHALEXIN--GI, 11/22/16) Medications Current Inpatient Medications Medications (Trade) Dose Ordered Sig/Omkar Route Start Time Stop Time Status Last Admin Dose Admin Heparin Sodium (Porcine) (Heparin Sq 5000 Unit/0.5ml) 5,000 unit Q8 SQ 11/21/16 15:45 12/21/16 15:44 11/26/16 13:00 5,000 UNIT Acetaminophen (Tylenol Tab) 650 mg Q4H PRN PO 11/21/16 15:45 12/21/16 15:44 Atorvastatin Calcium (Lipitor Tab) 40 mg DAILY PO 11/22/16 09:00 12/22/16 08:59 11/26/16 08:01 40 MG Montelukast Sodium (Singulair Tab) 10 mg QPM PO 11/21/16 21:00 12/21/16 20:59 11/25/16 20:33 10 MG Propranolol HCl (Inderal Tab) 80 mg BID PO 11/21/16 21:00 12/21/16 20:59 11/26/16 08:01 80 MG Roflumilast (Daliresp Tab) 500 mcg DAILY PO 11/22/16 09:00 12/22/16 08:59 11/26/16 08:01 500 MCG Senna (Senokot Tab) 8.6 mg QAM PO 11/22/16 09:00 12/22/16 08:59 11/26/16 08:01 8.6 MG Aspirin (Aspirin Chew) 81 mg DAILY PO 11/23/16 09:00 12/23/16 08:59 11/26/16 08:02 81 MG Heparin Sodium (Porcine) 5 ml 5 ml PRN PRN FLUSH 11/25/16 04:15 12/25/16 04:14 Imipenem/ Cilastatin Sodium/ Dextrose (Primaxin Iv/D5 100ml) 110 ml @ 100 mls/hr Q8H IV 11/25/16 10:00 11/30/16 03:05 11/26/16 09:55 100 MLS/HR Ondansetron HCl (Zofran Tab) 4 mg Q4H PRN PO 11/26/16 00:30 12/26/16 00:29 11/26/16 03:06 4 MG Insulin Aspart (novoLOG ASPART) SLIDING SCALE ACHS SC 11/26/16 08:00 12/26/16 07:59 11/26/16 12:59 2 UNITS Arformoterol Tartrate (Brovana 15MCG/ 2ML Neb Soln) 15 mcg BIDR INH 11/26/16 20:00 12/26/16 19:59 Budesonide (Pulmicort Respules 0.5MG/ 2ML Neb Soln) 0.5 mg BIDR INH 11/26/16 20:00 12/26/16 19:59 Tiotropium [place] (Spiriva Handihaler Inhaler) 1 puff DAILY INH 11/27/16 09:00 12/27/16 08:59 Ipratropium [place] (Atrovent 0.02% 0.5MG/2.5ML Neb) 0.5 mg Q6H PRN INH 11/26/16 09:45 12/26/16 09:44 Levalbuterol (Xopenex 1.25MG/ 0.5ML Neb) 1.25 mg Q6H PRN INH 11/26/16 09:45 12/26/16 09:44 Prednisone (PredniSONE TAB) 30 mg Taper DAILY@0800 PO 11/27/16 08:00 12/01/17 07:59 Lisinopril (Zestril Tab) 5 mg DAILY PO 11/27/16 09:00 12/27/16 08:59 Triamterene/HCTZ 1 cap 1 cap DAILY PO 11/27/16 09:00 12/27/16 08:59 Digoxin 125 mcg/ Syringe 10 ml @ 2 mls/min TODAY@2115 ONCE IV 11/26/16 21:15 11/26/16 21:19 Digoxin/Syringe (Digoxin IV/ Syringe) 10 ml @ 2 mls/min DAILY@16 IV 11/27/16 16:00 12/27/16 15:59 Heparin Sodium/ Dextrose 1 ea 1 ea Q15M N/A 11/26/16 15:40 12/26/16 15:39 Diltiazem HCl 125 mg/Dextrose 125 ml @ 0 mls/hr Q0M PRN IV 11/26/16 15:45 12/26/16 15:44 11/26/16 15:55 5 MLS/HR Heparin Sodium (Porcine) 5000 unit/Syringe 5 ml @ 10 mls/min TODAY@1615 IV 11/26/16 16:15 11/26/16 18:15 UNV Heparin Sodium/ Dextrose (Heparin 25,000 Unit/500ml D5W) 500 ml @ 22 mls/hr [id number] PRN IV 11/26/16 16:15 12/26/16 16:14 UNV Physical Exam Vital Signs Past 12 Hours Date Time Temp Pulse Resp B/P Pulse Ox O2 Delivery O2 Flow Rate FiO2 11/26/16 15:31 146 11/26/16 14:01 154 30 92/52 97 Nasal Cannula 4.0 11/26/16 12:15 100 100/58 90 11/26/16 12:00 93 Nasal Cannula 4.0 11/26/16 12:00 36.6 93 24 80/52 93 Nasal Cannula 4.0 11/26/16 10:01 80 22 107/38 98 Nasal Cannula 4.0 11/26/16 09:30 108 90/55 95 11/26/16 09:00 113 121/55 96 11/26/16 08:00 36.7 144 26 127/49 93 Nasal Cannula 4.0 11/26/16 08:00 93 Nasal Cannula 4.0 11/26/16 07:56 111 120/69 93 11/26/16 07:05 85 18 94 Nasal Cannula 4.0 11/26/16 06:00 36.5 82 24 110/57 94 Nasal Cannula 4.0 11/26/16 04:00 95 Nasal Cannula 4.0 11/26/16 04:00 36.5 75 24 135/54 95 Nasal Cannula 4.0 Constitutional: Level of Distress: moderate distress Psychiatric: Mental Status: active & alert Head: normocephalic Eyes: EOM: EOMI ENMT: normal ENT inspection, hearing grossly normal Neck: supple, no masses Lungs: Respiratory effort: no dyspnea, good air movement Auscultation: decreased breath sounds, expiratory wheezing, rhonchi Cardiovascular: Heart Auscultation: no murmurs, no rubs, no gallops, irregular rate rhythm Peripheral Pulses: Bruits: none appreciated Abdomen: Bowel Sounds: normal Inspection & Palpation: soft, no tenderness, guarding & rebound, no masses Musculoskeletal: normal strength (5/5 throughout) Extremities: no edema Neurologic: Cranial Nerves: grossly intact Sensation: grossly intact Data Laboratory Results: Last 24 Hours Test 11/25/16 20:07 11/26/16 00:05 11/26/16 03:52 11/26/16 05:36 Bedside Glucose 152 mg/dl 100 mg/dl 96 mg/dl White Blood Count 14.03 K/uL Red Blood Count 3.63 M/uL Hemoglobin 10.9 g/dL Hematocrit 37.1 % Mean Corpuscular Volume 102.2 fL Mean Corpuscular Hemoglobin 30.0 pg Mean Corpuscular Hemoglobin Concent 29.4 g/dl Platelet Count 242 K/uL Mean Platelet Volume 9.7 fL Neutrophils (%) (Auto) 75.4 % Lymphocytes (%) (Auto) 8.8 % Monocytes (%) (Auto) 15.0 % Eosinophils (%) (Auto) 0.4 % Basophils (%) (Auto) 0.0 % Neutrophils # (Auto) 10.56 K/uL Lymphocytes # (Auto) 1.24 K/uL Monocytes # (Auto) 2.11 K/uL Eosinophils # (Auto) 0.06 K/uL Basophils # (Auto) 0.00 K/uL RDW Standard Deviation 52.9 fL RDW Coefficient of Variation 14.1 % Immature Granulocyte % (Auto) 0.4 % Immature Granulocyte # (Auto) 0.06 K/uL Sodium Level 147 mmol/L Potassium Level 4.4 mmol/L Chloride Level 103 mmol/L Carbon Dioxide Level 41 mmol/L Anion Gap 3.0 mmol/L Blood Urea Nitrogen 61 mg/dl Creatinine 0.95 mg/dl Est Creatinine Clear Calc Drug Dose 48.9 ml/min Estimated GFR () 67.0 Estimated GFR (Non- 57.8 BUN/Creatinine Ratio 64.0 Random Glucose 91 mg/dl Calcium Level 9.2 mg/dl Phosphorus Level 4.8 mg/dl Magnesium Level 2.5 mg/dl Test 11/26/16 11:20 11/26/16 15:55 Bedside Glucose 131 mg/dl EKG: Prior to atrial fibrillation, sinus rhythm, unremarkable. Telemetry reviewed: Sinus rhythm until around 8:00 this morning when atrial fibrillation with a rapid ventricular response occurred. Heart rate has dropped somewhat but remains elevated. Assessment & Plan #1. Atrial fibrillation: Her and her are certainly familiar with the term atrial fibrillation and tell me that she had it diagnosed many years ago. I can't find specifics about it, but she has never been offered an anticoagulant but she was on Inderal presumably for the arrhythmia. She probably has paroxysmal atrial fibrillation based on this but I can't be sure. For the moment I would like to try rate control, she did respond fairly well to the diltiazem bolus although her blood pressure dropped somewhat. I would still like to place her on a Cardizem drip. I would also like to start an anticoagulant, perhaps the safest would be heparin for the moment. Over the long run I would use one of the newer anticoagulants (not warfarin). If we can' t get the heart rate adequately controlled without causing hypotension we can consider converting the rhythm, preferably chemically rather than electrically which would require sedation. Thank you for allowing me to participate in her care.
[2016-11-26] MEDS: BOOST VANILLA PO SCH ×2 (16:30)
[2016-11-26 16:35] LABS: HEMATOCRIT 37.6 % (37-47); MEAN CELL VOLUME 103.3 fL (80-100); MEAN CORPUSCULAR HEMOGLOBIN 30.5 pg (25-34); MEAN PLATELET VOLUME 9.8 fL (7.4-10.4); PLATELET COUNT 248 K/uL (130-400); RED BLOOD COUNT 3.64 M/uL (4.2-5.4); WHITE BLOOD COUNT 17.45 K/uL (4.8-10.8)
[2016-11-26 16:40] LABS: MEAN CORPUSCULAR HGB CONC 29.5 g/dl (32-36)
[2016-11-26 16:45] LABS: INR 0.9 (0.9-1.1); PARTIAL THROMBOPLASTIN RATIO 0.9
[2016-11-26] MEDS: HEPARIN 25,000 UNIT/500ML D5W 500 ML IV PRN (16:57)
--- NOTE | 2016-11-26 17:32 | Infectious Disease Progress Nt ---
Progress Note Date of Service Nov 26, 2016. Subjective Pt evaluation today including: conversation w/ patient, physical exam, chart review, lab review, review of studies, conversation w/ sales enablement consultant (Dr. Krause) , review of inpatient medication list Patient states her breathing is slightly improved today. She does not have a sore throat. She complains of no pain. She states that she does continue to cough. Her white blood cell count this morning was 14.03. Her creatinine was noted to be 0.95. Her carbon dioxide level was 41. No new culture results. She appears to be tolerating her IV antibiotic therapy well. All Other Systems: Reviewed and Negative Medications Current Inpatient Medications Medications (Trade) Dose Ordered Sig/Omkar Route Start Time Stop Time Status Last Admin Dose Admin Heparin Sodium (Porcine) (Heparin Sq 5000 Unit/0.5ml) 5,000 unit Q8 SQ 11/21/16 15:45 12/21/16 15:44 11/26/16 13:00 5,000 UNIT Acetaminophen (Tylenol Tab) 650 mg Q4H PRN PO 11/21/16 15:45 12/21/16 15:44 Atorvastatin Calcium (Lipitor Tab) 40 mg DAILY PO 11/22/16 09:00 12/22/16 08:59 11/26/16 08:01 40 MG Montelukast Sodium (Singulair Tab) 10 mg QPM PO 11/21/16 21:00 12/21/16 20:59 11/25/16 20:33 10 MG Propranolol HCl (Inderal Tab) 80 mg BID PO 11/21/16 21:00 12/21/16 20:59 11/26/16 08:01 80 MG Roflumilast (Daliresp Tab) 500 mcg DAILY PO 11/22/16 09:00 12/22/16 08:59 11/26/16 08:01 500 MCG Senna (Senokot Tab) 8.6 mg QAM PO 11/22/16 09:00 12/22/16 08:59 11/26/16 08:01 8.6 MG Aspirin (Aspirin Chew) 81 mg DAILY PO 11/23/16 09:00 12/23/16 08:59 11/26/16 08:02 81 MG Heparin Sodium (Porcine) 5 ml 5 ml PRN PRN FLUSH 11/25/16 04:15 12/25/16 04:14 Imipenem/ Cilastatin Sodium/ Dextrose (Primaxin Iv/D5 100ml) 110 ml @ 100 mls/hr Q8H IV 11/25/16 10:00 11/30/16 03:05 11/26/16 09:55 100 MLS/HR Ondansetron HCl (Zofran Tab) 4 mg Q4H PRN PO 11/26/16 00:30 12/26/16 00:29 11/26/16 03:06 4 MG Insulin Aspart (novoLOG ASPART) SLIDING SCALE ACHS SC 11/26/16 08:00 12/26/16 07:59 11/26/16 12:59 2 UNITS Arformoterol Tartrate (Brovana 15MCG/ 2ML Neb Soln) 15 mcg BIDR INH 11/26/16 20:00 12/26/16 19:59 Budesonide (Pulmicort Respules 0.5MG/ 2ML Neb Soln) 0.5 mg BIDR INH 11/26/16 20:00 12/26/16 19:59 Tiotropium [place] (Spiriva Handihaler Inhaler) 1 puff DAILY INH 11/27/16 09:00 12/27/16 08:59 Ipratropium [place] (Atrovent 0.02% 0.5MG/2.5ML Neb) 0.5 mg Q6H PRN INH 11/26/16 09:45 12/26/16 09:44 Levalbuterol (Xopenex 1.25MG/ 0.5ML Neb) 1.25 mg Q6H PRN INH 11/26/16 09:45 12/26/16 09:44 Prednisone (PredniSONE TAB) 30 mg Taper DAILY@0800 PO 11/27/16 08:00 12/01/17 07:59 Lisinopril (Zestril Tab) 5 mg DAILY PO 11/27/16 09:00 12/27/16 08:59 Triamterene/HCTZ 1 cap 1 cap DAILY PO 11/27/16 09:00 12/27/16 08:59 Digoxin 125 mcg/ Syringe 10 ml @ 2 mls/min TODAY@2115 ONCE IV 11/26/16 21:15 11/26/16 21:19 Digoxin 125 mcg/ Syringe 10 ml @ 2 mls/min DAILY@16 IV 11/27/16 16:00 12/27/16 15:59 Diltiazem HCl 125 mg/Dextrose 125 ml @ 0 mls/hr Q0M PRN IV 11/26/16 15:45 12/26/16 15:44 11/26/16 15:55 5 MLS/HR Heparin Sodium/ Dextrose (Heparin 25,000 Unit/500ml D5W) 500 ml @ 22 mls/hr [id number] PRN IV 11/26/16 16:15 12/26/16 16:14 11/26/16 16:57 22 MLS/HR Enteral Nutritional Formula (Boost) 1 can BIDM PO 11/26/16 16:30 12/26/16 16:29 Objective Vital Signs Date Time Temp Pulse Resp B/P Pulse Ox O2 Delivery O2 Flow Rate FiO2 11/26/16 17:15 141 128/80 94 11/26/16 17:01 157 120/55 81 11/26/16 16:30 117 110/51 11/26/16 16:15 125 26 111/51 94 Nasal Cannula 4.0 11/26/16 16:00 159 26 89/67 94 Nasal Cannula 4.0 11/26/16 16:00 94 Nasal Cannula 4.0 11/26/16 15:31 146 11/26/16 14:01 154 30 92/52 97 Nasal Cannula 4.0 11/26/16 12:15 100 100/58 90 11/26/16 12:00 93 Nasal Cannula 4.0 11/26/16 12:00 36.6 93 24 80/52 93 Nasal Cannula 4.0 11/26/16 10:01 80 22 107/38 98 Nasal Cannula 4.0 11/26/16 09:30 108 90/55 95 11/26/16 09:00 113 121/55 96 11/26/16 08:00 36.7 144 26 127/49 93 Nasal Cannula 4.0 11/26/16 08:00 93 Nasal Cannula 4.0 11/26/16 07:56 111 120/69 93 11/26/16 07:05 85 18 94 Nasal Cannula 4.0 11/26/16 06:00 36.5 82 24 110/57 94 Nasal Cannula 4.0 11/26/16 04:00 95 Nasal Cannula 4.0 11/26/16 04:00 36.5 75 24 135/54 95 Nasal Cannula 4.0 11/26/16 02:00 36.5 79 24 119/47 98 Nasal Cannula 4.0 11/26/16 00:01 98 Nasal Cannula 4.0 11/26/16 00:01 36.5 83 24 117/65 98 Nasal Cannula 4.0 11/25/16 22:00 36.8 82 24 125/48 98 Nasal Cannula 4.0 11/25/16 20:00 36.8 85 24 135/56 95 Nasal Cannula 4.0 11/25/16 20:00 95 Nasal Cannula 4.0 11/25/16 19:50 87 18 93 Nasal Cannula 4.0 11/25/16 18:00 91 24 116/50 95 Nasal Cannula 4.0 Physical Exam General Appearance: WD/WN, no apparent distress Eyes: normal inspection, sclerae normal ENT: hearing grossly normal Neck: supple, trachea midline Respiratory/Chest: chest non-tender, no respiratory distress, no accessory muscle use, + pertinent finding (mild course breath sounds throughout with mild wheezing) Cardiovascular: + tachycardia, + irregularly irregular Abdomen: normal bowel sounds Extremities: no pedal edema Neurologic/Psychiatric: alert, normal mood/affect Skin: normal color, warm/dry, no rash Laboratory Results Last 24 Hours Test 11/25/16 20:07 11/26/16 00:05 11/26/16 03:52 11/26/16 05:36 Bedside Glucose 152 mg/dl 100 mg/dl 96 mg/dl White Blood Count 14.03 K/uL Red Blood Count 3.63 M/uL Hemoglobin 10.9 g/dL Hematocrit 37.1 % Mean Corpuscular Volume 102.2 fL Mean Corpuscular Hemoglobin 30.0 pg Mean Corpuscular Hemoglobin Concent 29.4 g/dl Platelet Count 242 K/uL Mean Platelet Volume 9.7 fL Neutrophils (%) (Auto) 75.4 % Lymphocytes (%) (Auto) 8.8 % Monocytes (%) (Auto) 15.0 % Eosinophils (%) (Auto) 0.4 % Basophils (%) (Auto) 0.0 % Neutrophils # (Auto) 10.56 K/uL Lymphocytes # (Auto) 1.24 K/uL Monocytes # (Auto) 2.11 K/uL Eosinophils # (Auto) 0.06 K/uL Basophils # (Auto) 0.00 K/uL RDW Standard Deviation 52.9 fL RDW Coefficient of Variation 14.1 % Immature Granulocyte % (Auto) 0.4 % Immature Granulocyte # (Auto) 0.06 K/uL Sodium Level 147 mmol/L Potassium Level 4.4 mmol/L Chloride Level 103 mmol/L Carbon Dioxide Level 41 mmol/L Anion Gap 3.0 mmol/L Blood Urea Nitrogen 61 mg/dl Creatinine 0.95 mg/dl Est Creatinine Clear Calc Drug Dose 48.9 ml/min Estimated GFR () 67.0 Estimated GFR (Non- 57.8 BUN/Creatinine Ratio 64.0 Random Glucose 91 mg/dl Calcium Level 9.2 mg/dl Phosphorus Level 4.8 mg/dl Magnesium Level 2.5 mg/dl Test 11/26/16 11:20 11/26/16 16:00 11/26/16 16:16 Bedside Glucose 131 mg/dl 130 mg/dl White Blood Count 17.45 K/uL Red Blood Count 3.64 M/uL Hemoglobin 11.1 g/dL Hematocrit 37.6 % Mean Corpuscular Volume 103.3 fL Mean Corpuscular Hemoglobin 30.5 pg Mean Corpuscular Hemoglobin Concent 29.5 g/dl RDW Standard Deviation 52.5 fL RDW Coefficient of Variation 14.0 % Platelet Count 248 K/uL Mean Platelet Volume 9.8 fL Prothrombin Time 10.0 SECONDS Prothromb Time International Ratio 0.9 Activated Partial Thromboplast Time 22.3 SECONDS Partial Thromboplastin Ratio 0.9 Assessment and Plan (1) Hyperglycemia Status: Acute (2) Chronic intermittent steroid use (3) KARINA (acute kidney injury) (4) COPD exacerbation Status: Acute (5) Acute respiratory failure Patient with SOB and productive cough with Achromobacter xylosoxidans and H. Flu growing in sputum culture. Patient is currently on IV Primaxin. Patient likely will need at least 5 days of treatment pending improvement. We will continue to follow. PROVIDER ADDENDUM: Patient reviewed with Ms. Estrada. Agree with above assessment.
[2016-11-26] MEDS: BUDESONIDE 0.5 MG/2 ML VIAL (PULMICORT) INH SCH (19:53)
[2016-11-26] MEDS: ARFORMOTEROL TART 15MCG/2ML VIAL INH SCH (19:53)
[2016-11-26] MEDS: MONTELUKAST SOD 10 MG TAB PO SCH (20:45)
[2016-11-26] MEDS ORDERED: DIGOXIN IV 125 MCG in SYRINGE 9.5 ML IV ONE (21:15)
[2016-11-27] VITALS (21 sets, daily range): BP systolic 82–136; BP diastolic 34–53; PULSE 64–102; TEMP 36.4–37.1; O2SAT 90–97
[2016-11-27] MEDS: DILTIAZEM HCL INJ 125 MG in DEXTROSE 5% 100ML IV PRN (00:10)
[2016-11-27 00:17] LABS: PARTIAL THROMBOPLASTIN RATIO 2.2
[2016-11-27 06:16] LABS: BASO % 0.1 %; BASO ABS # 0.01 K/uL (0-0.2); COMPLETE YES; EOS % 0.1 %; IG% 0.4 %; LYMPH % 7.8 %; MEAN CELL VOLUME 103.7 fL (80-100); MEAN CORPUSCULAR HEMOGLOBIN 30.3 pg (25-34); MEAN CORPUSCULAR HGB CONC 29.2 g/dl (32-36); MEAN PLATELET VOLUME 9.7 fL (7.4-10.4); MONO % 12.4 %; NEUT % 79.2 %; PLATELET COUNT 238 K/uL (130-400); RED BLOOD COUNT 3.47 M/uL (4.2-5.4); WHITE BLOOD COUNT 14.16 K/uL (4.8-10.8)
[2016-11-27] MEDS: ARFORMOTEROL TART 15MCG/2ML VIAL INH SCH ×2 (07:00→18:56)
[2016-11-27] MEDS: BUDESONIDE 0.5 MG/2 ML VIAL (PULMICORT) INH SCH ×2 (07:00→18:56)
[2016-11-27] MEDS ORDERED: PHARMACY GLYCEMIC MGMT CONSULT PRN (07:00)
[2016-11-27 07:07] LABS: BUN/CREATININE RATIO 53.8 (10-20); CALCIUM 8.8 mg/dl (8.5-10.1); CREATININE 1.4 mg/dl (0.60-1.20); MAGNESIUM 2.8 mg/dl (1.8-2.4); PHOSPHORUS 7.1 mg/dl (2.5-4.9); POTASSIUM 5.1 mmol/L (3.5-5.1)
--- NOTE | 2016-11-27 07:11 | Family Medicine Progress Note ---
Progress Note Date of Service Nov 27, 2016. Subjective Pt evaluation today including: conversation w/ patient, physical exam, chart review, lab review Patient says she is well, but that she feels a little groggy and fatigued. She is upset that her dog is being put down today. She denies any acute overnight events and says she has no CP, SOB, palpitations, abdominal pain. She says she had a bowel movement the other day and denies diarrhea. She tolerating food well. She is oriented to person, place and time, and able to state the days of the week backwards and president. She is able to follow simple commands. Constitutional: + fatigue, No fever, No sweats Respiratory: + cough, No hemoptysis, No shortness of breath, No sputum, No wheezing Cardiovascular: No chest pain, No edema, No palpitations Abdomen: No constipation, No diarrhea, No nausea, No pain, No vomiting Neurologic: No memory loss Objective Vital Signs Date Time Temp Pulse Resp B/P Pulse Ox O2 Delivery O2 Flow Rate FiO2 11/27/16 04:00 36.4 91 103/48 97 Mask 4.0 11/27/16 04:00 97 Nasal Cannula 4.0 Mask 11/27/16 03:00 90 101/50 96 11/27/16 02:30 100 99/49 97 11/27/16 02:01 83 94/42 95 11/27/16 00:00 97 Nasal Cannula 4.0 Mask 11/27/16 00:00 36.4 81 106/41 97 Mask 4.0 11/26/16 20:59 122 11/26/16 20:31 110 106/44 85 11/26/16 20:16 117 116/48 98 11/26/16 20:00 92 Nasal Cannula 4.0 11/26/16 20:00 36.7 101 113/44 100 Nasal Cannula 4.0 11/26/16 19:53 119 18 95 Nasal Cannula 4.0 11/26/16 19:49 101 122/58 95 11/26/16 19:45 100 126/34 97 11/26/16 19:31 92 107/50 96 11/26/16 19:00 121 93/59 89 11/26/16 18:00 154 97/54 94 11/26/16 17:15 141 128/80 94 11/26/16 17:01 157 120/55 81 11/26/16 16:30 117 110/51 11/26/16 16:15 125 26 111/51 94 Nasal Cannula 4.0 11/26/16 16:00 159 26 89/67 94 Nasal Cannula 4.0 11/26/16 16:00 94 Nasal Cannula 4.0 11/26/16 15:31 146 11/26/16 14:01 154 30 92/52 97 Nasal Cannula 4.0 11/26/16 12:15 100 100/58 90 11/26/16 12:00 93 Nasal Cannula 4.0 11/26/16 12:00 36.6 93 24 80/52 93 Nasal Cannula 4.0 11/26/16 10:01 80 22 107/38 98 Nasal Cannula 4.0 11/26/16 09:30 108 90/55 95 11/26/16 09:00 113 121/55 96 11/26/16 08:00 36.7 144 26 127/49 93 Nasal Cannula 4.0 11/26/16 08:00 93 Nasal Cannula 4.0 11/26/16 07:56 111 120/69 93 Physical Exam General Appearance: WD/WN, no apparent distress Eyes: normal inspection ENT: hearing grossly normal Neck: supple, no adenopathy Respiratory/Chest: chest non-tender, lungs clear, normal breath sounds, no respiratory distress Cardiovascular: + tachycardia, + irregularly irregular Abdomen: normal bowel sounds, non tender, soft Extremities: normal inspection, no pedal edema, no calf tenderness Neurologic/Psychiatric: alert, normal mood/affect, oriented x 3 Skin: normal color, warm/dry, no rash Laboratory Results Results Past 24 Hours Test 11/26/16 20:02 11/27/16 05:50 11/27/16 08:10 11/27/16 10:00 Range/Units Bedside Glucose 232 70-90 mg/dl White Blood Count 14.16 4.8-10.8 K/uL Red Blood Count 3.47 4.2-5.4 M/uL Hemoglobin 10.5 12.0-16.0 g/dL Hematocrit 36.0 37-47 % Mean Corpuscular Volume 103.7 80-100 fL Mean Corpuscular Hemoglobin 30.3 25-34 pg Mean Corpuscular Hemoglobin Concent 29.2 32-36 g/dl Platelet Count 238 130-400 K/uL Mean Platelet Volume 9.7 7.4-10.4 fL Neutrophils (%) (Auto) 79.2 % Lymphocytes (%) (Auto) 7.8 % Monocytes (%) (Auto) 12.4 % Eosinophils (%) (Auto) 0.1 % Basophils (%) (Auto) 0.1 % Neutrophils # (Auto) 11.21 1.4-6.5 K/uL Lymphocytes # (Auto) 1.10 1.2-3.4 K/uL Monocytes # (Auto) 1.76 0.11-0.59 K/uL Eosinophils # (Auto) 0.02 0-0.5 K/uL Basophils # (Auto) 0.01 0-0.2 K/uL RDW Standard Deviation 51.5 36.4-46.3 fL RDW Coefficient of Variation 13.8 11.5-14.5 % Immature Granulocyte % (Auto) 0.4 % Immature Granulocyte # (Auto) 0.06 0.00-0.02 K/uL Sodium Level 140 136-145 mmol/L Potassium Level 5.1 3.5-5.1 mmol/L Chloride Level 97 98-107 mmol/L Carbon Dioxide Level 39 21-32 mmol/L Anion Gap 4.0 3-11 mmol/L Blood Urea Nitrogen 75 7-18 mg/dl Creatinine 1.40 0.60-1.20 mg/dl Est Creatinine Clear Calc Drug Dose 33.2 ml/min Estimated GFR () 41.9 Estimated GFR (Non- 36.2 BUN/Creatinine Ratio 53.8 10-20 Random Glucose 197 70-99 mg/dl Calcium Level 8.8 8.5-10.1 mg/dl Phosphorus Level 7.1 5.0 2.5-4.9 mg/dl Magnesium Level 2.8 2.6 1.8-2.4 mg/dl Digoxin Level 1.7 0.8-2.0 ng/ml Activated Partial Thromboplast Time 54.6 21.0-31.0 SECONDS Partial Thromboplastin Ratio 2.1 Test 11/27/16 11:34 11/27/16 15:59 11/27/16 17:00 Range/Units Bedside Glucose 183 240 70-90 mg/dl Venous Blood pH 7.22 7.36-7.41 Venous Blood Partial Pressure CO2 96 38.0-50.0 mmHg Venous Blood Partial Pressure O2 44 mmHg Venous Blood HCO3 38 mmol/L Venous Blood Oxygen Saturation 74.8 % Venous Blood Base Excess 8.2 mmol/L Sodium Level 138 136-145 mmol/L Potassium Level 5.6 3.5-5.1 mmol/L Chloride Level 97 98-107 mmol/L Carbon Dioxide Level 38 21-32 mmol/L Anion Gap 0.0 3-11 mmol/L Blood Urea Nitrogen 81 7-18 mg/dl Creatinine 1.50 0.60-1.20 mg/dl Est Creatinine Clear Calc Drug Dose 30.9 ml/min Estimated GFR () 38.5 Estimated GFR (Non- 33.3 BUN/Creatinine Ratio 54.0 10-20 Random Glucose 193 70-99 mg/dl Calcium Level 8.9 8.5-10.1 mg/dl Phosphorus Level 5.1 2.5-4.9 mg/dl Magnesium Level 2.8 1.8-2.4 mg/dl Assessment and Plan 76 yo F w/ hx of COPD on home O2 @ 4L, falls, chronic LE edema and generalized weakness, p/w acute worsening of SOB with acute hypoxic respiratory failure prior to arrival with VBG showing CO2 of 47 requiring immediate intubation. Was successfully extubated on 11/25/16. Atrial Fibrillation - Hemodynamically stable although blood pressure on the lower side of acceptable. Cardiology consulted - recs appreciated - Diltiazem drip, IV amiodarone and digoxin - Heparin for anticoagulation - Continue monitoring vitals Acute on Chronic Respiratory Failure - likely due to COPD exacerbation in the setting of pneumonia based on CXR showing bibasilar consolidation. Patient successfully extubated 11/25/16, maintaining normal saturation with supplemental oxygen. Fluid bolus given for hypotension. CXR 11/27 shows interval development of bibasilar parenchymal infiltrates combined with small left pleural effusion. Patient drowsy and VBG shows increased CO2 retention. - Continue baseline oxygen supplementation with 4L oxygen via NC, maintain sats 88-92% - Bipap commenced - IV Lasix 20mg once UTI - colonized with Achromobacter xylosoxidans and h.influenzae beta-lactamase (+). ID consulted, recs appreciated. - Start imipenem/cilastatin. Currently day 2 of 5 Bibasilar consolidation - Sputum cx: normal rian, blood cx negative, (initial) urine cx negative. Aspiration precautions as per Speech and swallow eval - Covered with imipenem/cilastatin. Currently day 6 of 7. COPD exacerbation - Discontinue Duoneb q6h, and revert to home inhalers: Spiriva, Brovana, Pulmicort, Daliresp, Singulair - Prednisone taper commenced Pulmonary Congestion with KARINA- some KARINA 2/2 diuresis, with KCL supplementation - Monitor BMP and replace K+ as necessary Hyperlipidemia - Continue Atorvastatin 40mg daily HTN - Continue Propranolol. Hold Lisinopril and Triamtrene/HCTZ due to hypotension Cardio/DVT/GI Prophylaxis - Continue aspirin - Continue Heparin drip, SCD and TEDs (Lovenox contra-indicated due to KARINA) - Protonix 40 mg IV daily discontinued DM - Continue Lantus 10 units daily + sliding scale Dispo - OT/PT evals pending Code status - Full Code Continued [facility] stay due to: abnormal vital signs Discharge planning: uncertain Resident Tracking Resident Involvement: Resident Care Provided Care Provided: Adult Hospital Medicine History Resident Physician Supervision Note: I was present with Dr. Glaser during the history and exam. I discussed the case with the resident and agree with the findings and plan as documented in the note. Any exceptions or clarifications are listed here. Pt seen and examined at bedside. Overnight, persistent atrial fibrillation overtop digoxin with some notable easy fatigability without cardioversion with rate control to the 100s. She states she feels somewhat off today, but was able to eat breakfast well and answers questions appropriately at this time. Reports no fever, worsening cough/SOB, lightheadedness, VILLALOBOS, sensory changes, abd pain. Resident called to bedside for pt reported decreased mental status - feeling slow. Answering questions appropriately at bedside per nursing with some delay. VS unchanged from earlier today w/o relative hypotension General Appearance: WD/WN, mild distress (respiratory, stable from previous) Eye Exam: bilateral eye EOMI, bilateral eye PERRL Ears, Nose, Throat: normal ENT inspection, hearing grossly normal Respiratory: chest non-tender, respiratory distress (mild), decreased breath sounds (b/l bases), rales (LLL > RLL) Cardiovascular: no murmur, irregularly irregular Gastrointestinal: normal bowel sounds, non tender, soft Assessment/Plan 76 y/o female h/o COPD presents w/ ARF 2/2 CAP and COPD exacerbation now w/ atrial fibrillation in NSR Altered mental status - multiple underlying potential causes - 500mL NS bolus x 1 - repeat BMP, Mg, PO, CBC, VBG. Consider ABG for ? retention. Hypotension with atrial fibrillation in RVR - Cardiology has been consulted and recommendations appreciated. Rate controlled w/ cardizem and digoxin w/o cardioversion. Heparin for AC. Initiate amiodarone for goal of cardioversion to sinus. Will bolus small vol NS if BP worsens ~80/50. On Inderal BID Basilar consolidation w/ sputum culture w/ achromobacter and h. flu - IV primaxin for minimum of 5 days. ID consulted and recommendations appreciated. COPD exacerbation w/ emphysema s/p intubation VDRF - continue duonebs, prednisone taper. S/S completed, diet onboard. Pulmonary congestion in setting of KARINA - trend BMP, fluid bolus for hypotension and tachycardia as necessary HTN - continue propranolol, holding lisinopril, Triamterene/HCTZ Hyperglycemia on steroids - ISS, FSBS monitoring
[2016-11-27 08:42] LABS: PARTIAL THROMBOPLASTIN RATIO 2.1
[2016-11-27] MEDS ORDERED: LISINOPRIL 5 MG TAB PO SCH (09:00)
[2016-11-27] MEDS ORDERED: TRIAMTERENE/HCTZ 37.5/25MG CAP PO SCH (09:00)
--- NOTE | 2016-11-27 09:08 | Pharmacy Progress Note ---
Glycemic Control: Progress Nt Date of Service Nov 27, 2016. Scope Glycemic Pharmacist consulted by Dr Krause on 11/24/16 for glycemic control and to write orders per [facility] inpatient glycemic control protocol. Objective Accuchecks BSG (last 24hrs): Test 11/26/16 11:20 11/26/16 16:00 11/26/16 20:02 11/27/16 05:50 Bedside Glucose 131 mg/dl (70-90) 130 mg/dl (70-90) 232 mg/dl (70-90) Random Glucose 197 mg/dl (70-99) Laboratory Data (last 24hrs) Test 11/26/16 16:16 11/27/16 05:50 White Blood Count 17.45 K/uL 14.16 K/uL Anion Gap 4.0 mmol/L BUN/Creatinine Ratio 53.8 Blood Urea Nitrogen 75 mg/dl Creatinine 1.40 mg/dl Potassium Level 5.1 mmol/L Sodium Level 140 mmol/L Red Blood Count 3.47 M/uL Hemoglobin 10.5 g/dL Hematocrit 36.0 % Mean Corpuscular Volume 103.7 fL Mean Corpuscular Hemoglobin 30.3 pg Mean Corpuscular Hemoglobin Concent 29.2 g/dl Platelet Count 238 K/uL Mean Platelet Volume 9.7 fL Neutrophils (%) (Auto) 79.2 % Lymphocytes (%) (Auto) 7.8 % Monocytes (%) (Auto) 12.4 % Eosinophils (%) (Auto) 0.1 % Basophils (%) (Auto) 0.1 % Neutrophils # (Auto) 11.21 K/uL Lymphocytes # (Auto) 1.10 K/uL Monocytes # (Auto) 1.76 K/uL Eosinophils # (Auto) 0.02 K/uL Basophils # (Auto) 0.01 K/uL HbA1c: Item Value Date Time Hemoglobin A1c 5.8 % H 05/01/16 1355 Estimated Average Glucose 120 mg/dl 05/01/16 1355 Recent Pertinent Medications Outpatient Anti-diabetic Regimen: * no prior dx of DM, no out-pt meds for DM * A1c = 5.8 % 05/01/16 The patient is currently receiving: * Basal insulin: No Lantus given in last 24 hours * Correctional Insulin: Novolog Correction per scale Q 4 hours Goal Range: Low 140 mg/dL - High 180 mg/dL Correction Factor: 35 mg/dL/unit * Prandial insulin: Per carb ratio of 1 unit per 15 grams CHO consumed Risk Factors for Insulin Resistance: * Steroids * Infection * Diet Assessment & Plan ASSESSMENT: 11/27/16 * Patient is currently receiving an average of 5-10 units of insulin per day * BSGs ranging 91-232 over the past 24hrs (trended up throughout the evening) * Risk factors for insulin resistance continue to decrease * Steroid dosing tapering (Currently Prednisone 30 mg PO daily) * Infection is being adequately treated/Pt status improving * My plan is to tighten Novolog slightly, hold off on basal insulin, and reassess tomorrow AM * If BSGs remain >180 mg/dL, consider one time NPH dose tomorrow AM to mimic kinetics of PO prednisone * ADA & AACE recommend a goal blood sugar range 140-180 mg/dl for the majority of critically ill & non-critically ill patients. However, more stringent targets may be selected in individual cases. PLAN FOR INPATIENT GLYCEMIC CONTROL: * Changing correction factor to 30 mg/dl/unit * Changing carb ratio to 1 unit per 12 grams CHO consumed * Continuing goal range of Low 140 mg/dL - High 180 mg/dL * Please note that the plan above was derived based on current level of insulin resistance and hospital stress. These recommendations are appropriate for inpatient admission only. Plan of care upon discharge will need to be reassessed to avoid potential outpatient hypo/hyperglycemia. Thank you.
[2016-11-27] MEDS ORDERED: AMIODARONE IV BOLUS / DRIP IV STA (09:31)
[2016-11-27] MEDS ORDERED: AMIODARONE / D5W 100 ML IV SCH (10:00)
[2016-11-27] MEDS: PROPRANOLOL HCL 80 MG TAB PO SCH ×2 (10:01→21:05)
[2016-11-27] MEDS: SENNA 8.6 MG TAB PO SCH (10:01)
[2016-11-27] MEDS: ROFLUMILAST 500 MCG TAB PO SCH (10:01)
[2016-11-27] MEDS: ATORVASTATIN 40 MG TAB PO SCH (10:01)
[2016-11-27] MEDS: ASPIRIN 81 MG CHEW PO SCH (10:02)
[2016-11-27] MEDS: TIOTROPIUM BROMIDE 5 PUFF/90 MCG INH INH SCH (10:03)
[2016-11-27] MEDS: IMIPENEM/CILASTATIN IV 500 MG in DEXTROSE 5% 100ML 100 ML IV SCH ×2 (10:06→18:22)
[2016-11-27] MEDS: BOOST VANILLA PO SCH ×4 (10:06→16:45)
[2016-11-27] MEDS ORDERED: AMIODARONE / D5W 200 ML IV SCH (10:10)
[2016-11-27] MEDS: INSULIN ASPART 100 UNITS/ML 3 ML PEN SC SCH ×4 (10:14→21:00)
--- NOTE | 2016-11-27 10:31 | Infectious Disease Progress Nt ---
Progress Note Date of Service Nov 27, 2016. Subjective Pt evaluation today including: conversation w/ patient, physical exam, chart review, lab review, review of studies, conversation w/ data center consultant (Dr. Reed), review of inpatient medication list Patient with mild confusion this morning but appears to be improving now. WBC this morning was 14.16. Phosphorus elevated to 7.1, and Creatinine was 1.40. Patient complains of no breathing trouble. She is in no pain. No new micro/ imaging. All Other Systems: Reviewed and Negative Medications Current Inpatient Medications Medications (Trade) Dose Ordered Sig/Omkar Route Start Time Stop Time Status Last Admin Dose Admin Acetaminophen (Tylenol Tab) 650 mg Q4H PRN PO 11/21/16 15:45 12/21/16 15:44 Atorvastatin Calcium (Lipitor Tab) 40 mg DAILY PO 11/22/16 09:00 12/22/16 08:59 11/27/16 10:01 40 MG Montelukast Sodium (Singulair Tab) 10 mg QPM PO 11/21/16 21:00 12/21/16 20:59 11/26/16 20:45 10 MG Propranolol HCl (Inderal Tab) 80 mg BID PO 11/21/16 21:00 12/21/16 20:59 11/27/16 10:01 80 MG Roflumilast (Daliresp Tab) 500 mcg DAILY PO 11/22/16 09:00 12/22/16 08:59 11/27/16 10:01 500 MCG Senna (Senokot Tab) 8.6 mg QAM PO 11/22/16 09:00 12/22/16 08:59 11/27/16 10:01 8.6 MG Aspirin (Aspirin Chew) 81 mg DAILY PO 11/23/16 09:00 12/23/16 08:59 11/27/16 10:02 81 MG Heparin Sodium (Porcine) 5 ml 5 ml PRN PRN FLUSH 11/25/16 04:15 12/25/16 04:14 Imipenem/ Cilastatin Sodium/ Dextrose (Primaxin Iv/D5 100ml) 110 ml @ 100 mls/hr Q8H IV 11/25/16 10:00 11/30/16 03:05 11/27/16 10:06 100 MLS/HR Ondansetron HCl (Zofran Tab) 4 mg Q4H PRN PO 11/26/16 00:30 12/26/16 00:29 11/26/16 03:06 4 MG Insulin Aspart (novoLOG ASPART) SLIDING SCALE ACHS SC 11/26/16 08:00 12/26/16 07:59 11/27/16 10:14 2 UNITS Arformoterol Tartrate (Brovana 15MCG/ 2ML Neb Soln) 15 mcg BIDR INH 11/26/16 20:00 12/26/16 19:59 11/27/16 07:00 15 MCG Budesonide (Pulmicort Respules 0.5MG/ 2ML Neb Soln) 0.5 mg BIDR INH 11/26/16 20:00 12/26/16 19:59 11/27/16 07:00 0.5 MG Tiotropium [place] (Spiriva Handihaler Inhaler) 1 puff DAILY INH 11/27/16 09:00 12/27/16 08:59 11/27/16 10:03 1 PUFF Ipratropium [place] (Atrovent 0.02% 0.5MG/2.5ML Neb) 0.5 mg Q6H PRN INH 11/26/16 09:45 12/26/16 09:44 Levalbuterol (Xopenex 1.25MG/ 0.5ML Neb) 1.25 mg Q6H PRN INH 11/26/16 09:45 12/26/16 09:44 Prednisone (PredniSONE TAB) 30 mg Taper DAILY@0800 PO 11/27/16 08:00 12/01/17 07:59 11/27/16 10:02 30 MG Lisinopril (Zestril Tab) 5 mg DAILY PO 11/27/16 09:00 12/27/16 08:59 11/27/16 10:01 5 MG Triamterene/HCTZ 1 cap 1 cap DAILY PO 11/27/16 09:00 12/27/16 08:59 11/27/16 10:02 1 CAP Digoxin 125 mcg/ Syringe 10 ml @ 2 mls/min DAILY@16 IV 11/27/16 16:00 12/27/16 15:59 Diltiazem HCl 125 mg/Dextrose 125 ml @ 0 mls/hr Q0M PRN IV 11/26/16 15:45 12/26/16 15:44 11/27/16 00:10 15 MLS/HR Heparin Sodium/ Dextrose (Heparin 25,000 Unit/500ml D5W) 500 ml @ 22 mls/hr [id number] PRN IV 11/26/16 16:15 12/26/16 16:14 11/26/16 16:57 22 MLS/HR Enteral Nutritional Formula (Boost) 1 can BIDM PO 11/26/16 16:30 12/26/16 16:29 11/27/16 10:06 1 CAN Miscellaneous Information 1 ea 1 ea UD PRN N/A 11/27/16 07:00 12/27/16 06:59 Amiodarone HCL/ Dextrose 200 ml @ 33.3 mls/hr Q6H1M IV 11/27/16 10:10 11/27/16 16:09 11/27/16 10:17 33.3 MLS/HR Amiodarone HCL/ Dextrose (Nexterone / D5w) 200 ml @ 16.7 mls/hr [id number] IV 11/27/16 16:10 12/27/16 16:09 Objective Vital Signs Date Time Temp Pulse Resp B/P Pulse Ox O2 Delivery O2 Flow Rate FiO2 11/27/16 07:00 89 18 94 Mask 4.0 11/27/16 04:00 36.4 91 103/48 97 Mask 4.0 11/27/16 04:00 97 Nasal Cannula 4.0 Mask 11/27/16 03:00 90 101/50 96 11/27/16 02:30 100 99/49 97 11/27/16 02:01 83 94/42 95 11/27/16 00:00 97 Nasal Cannula 4.0 Mask 11/27/16 00:00 36.4 81 106/41 97 Mask 4.0 11/26/16 20:59 122 11/26/16 20:31 110 106/44 85 11/26/16 20:16 117 116/48 98 11/26/16 20:00 92 Nasal Cannula 4.0 11/26/16 20:00 36.7 101 113/44 100 Nasal Cannula 4.0 11/26/16 19:53 119 18 95 Nasal Cannula 4.0 11/26/16 19:49 101 122/58 95 11/26/16 19:45 100 126/34 97 11/26/16 19:31 92 107/50 96 11/26/16 19:00 121 93/59 89 11/26/16 18:00 154 97/54 94 11/26/16 17:15 141 128/80 94 11/26/16 17:01 157 120/55 81 11/26/16 16:30 117 110/51 11/26/16 16:15 125 26 111/51 94 Nasal Cannula 4.0 11/26/16 16:00 159 26 89/67 94 Nasal Cannula 4.0 11/26/16 16:00 94 Nasal Cannula 4.0 11/26/16 15:31 146 11/26/16 14:01 154 30 92/52 97 Nasal Cannula 4.0 11/26/16 12:15 100 100/58 90 11/26/16 12:00 93 Nasal Cannula 4.0 11/26/16 12:00 36.6 93 24 80/52 93 Nasal Cannula 4.0 Physical Exam General Appearance: WD/WN, no apparent distress Eyes: normal inspection, sclerae normal ENT: hearing grossly normal Neck: supple, trachea midline Respiratory/Chest: no respiratory distress, no accessory muscle use, + decreased breath sounds Cardiovascular: + tachycardia, + irregularly irregular Abdomen: normal bowel sounds, non tender Extremities: no pedal edema Neurologic/Psychiatric: alert, normal mood/affect Skin: normal color, warm/dry, no rash Laboratory Results Last 24 Hours Test 11/26/16 11:20 11/26/16 16:00 11/26/16 16:16 11/26/16 20:02 Bedside Glucose 131 mg/dl 130 mg/dl 232 mg/dl White Blood Count 17.45 K/uL Red Blood Count 3.64 M/uL Hemoglobin 11.1 g/dL Hematocrit 37.6 % Mean Corpuscular Volume 103.3 fL Mean Corpuscular Hemoglobin 30.5 pg Mean Corpuscular Hemoglobin Concent 29.5 g/dl RDW Standard Deviation 52.5 fL RDW Coefficient of Variation 14.0 % Platelet Count 248 K/uL Mean Platelet Volume 9.8 fL Prothrombin Time 10.0 SECONDS Prothromb Time International Ratio 0.9 Activated Partial Thromboplast Time 22.3 SECONDS Partial Thromboplastin Ratio 0.9 Test 11/27/16 05:50 11/27/16 08:10 11/27/16 10:00 White Blood Count 14.16 K/uL Red Blood Count 3.47 M/uL Hemoglobin 10.5 g/dL Hematocrit 36.0 % Mean Corpuscular Volume 103.7 fL Mean Corpuscular Hemoglobin 30.3 pg Mean Corpuscular Hemoglobin Concent 29.2 g/dl Platelet Count 238 K/uL Mean Platelet Volume 9.7 fL Neutrophils (%) (Auto) 79.2 % Lymphocytes (%) (Auto) 7.8 % Monocytes (%) (Auto) 12.4 % Eosinophils (%) (Auto) 0.1 % Basophils (%) (Auto) 0.1 % Neutrophils # (Auto) 11.21 K/uL Lymphocytes # (Auto) 1.10 K/uL Monocytes # (Auto) 1.76 K/uL Eosinophils # (Auto) 0.02 K/uL Basophils # (Auto) 0.01 K/uL RDW Standard Deviation 51.5 fL RDW Coefficient of Variation 13.8 % Immature Granulocyte % (Auto) 0.4 % Immature Granulocyte # (Auto) 0.06 K/uL Sodium Level 140 mmol/L Potassium Level 5.1 mmol/L Chloride Level 97 mmol/L Carbon Dioxide Level 39 mmol/L Anion Gap 4.0 mmol/L Blood Urea Nitrogen 75 mg/dl Creatinine 1.40 mg/dl Est Creatinine Clear Calc Drug Dose 33.2 ml/min Estimated GFR () 41.9 Estimated GFR (Non- 36.2 BUN/Creatinine Ratio 53.8 Random Glucose 197 mg/dl Calcium Level 8.8 mg/dl Phosphorus Level 7.1 mg/dl Magnesium Level 2.8 mg/dl Digoxin Level 1.7 ng/ml Activated Partial Thromboplast Time 54.6 SECONDS Partial Thromboplastin Ratio 2.1 Assessment and Plan (1) Hyperglycemia Status: Acute (2) Chronic intermittent steroid use (3) KARINA (acute kidney injury) (4) COPD exacerbation Status: Acute (5) Acute respiratory failure Patient with SOB and productive cough with Achromobacter xylosoxidans and H. Flu growing in sputum culture. Patient is currently on IV Primaxin. Patient likely will need at least 5 days of treatment pending improvement. Discussed repeating CXR with Dr. Reed to evaluate for change/improvement. We will follow. PROVIDER ADDENDUM: Patient reviewed with Ms. Estrada. Agree with above assessment.
[2016-11-27 10:34] LABS: MAGNESIUM 2.6 mg/dl (1.8-2.4)
--- NOTE | 2016-11-27 10:39 | DIAGNOSTIC IMAGING REPORT ---
CHEST ONE VIEW PORTABLE CLINICAL HISTORY: COPD, Community Acquired PNA dyspnea COMPARISON STUDY: 11/16/20092016 FINDINGS: Interval extubation. Central catheter remains in the superior vena cava. Interval development of an infiltrative process combined with a small left effusion. Atelectasis versus minimal infiltrate right base. IMPRESSION: Interval extubation. Interval development of bibasilar parenchymal infiltrates combined with small left pleural effusion Electronically signed by: Silvio Nugent M.D. 11/27/2016 10:38 AM Dictated Date/Time: 11/27/2016 10:36 AM
--- NOTE | 2016-11-27 10:58 | Cardiology Follow-Up ---
Subjective Date of Service: Nov 27, 2016. Pt evaluation today including: conversation w/ patient, physical exam, lab review, review of studies, review of inpatient medication list, conversation w/ attending History of Present Illness This is a 76-year-old woman who has a history of severe COPD (with a long smoking history) as well as diabetes mellitus, hypertension, hypercholesterolemia and anemia. She was admitted with respiratory failure and required intubation, she has now improved and has been extubated. This morning at around 8:00 she went into atrial fibrillation with a rapid heart rate, she was given a 15 mg bolus of diltiazem and she remains in atrial fibrillation with a somewhat rapid heart rate. She denies palpitations. From the cardiovascular standpoint as far as I know she has never had coronary artery disease identified, she has however evidently had atrial fibrillation in the past. Although I cannot find any direct mention of it in the office records she reports having it for many years and "doctoring" for it. By that she tells me that she was on Inderal for her atrial fibrillation, and she tells me she was on aspirin but denies ever being offered an anticoagulant. I can't tell from her history where or when the arrhythmia was diagnosed or how often she had it or its nature (brief or persistent episodes) and although she does say that at time she will have an irregular heart rate that might last days at a time. Yesterday she had remained in atrial fibrillation most of the day therefore I started her on intravenous diltiazem for rate control, which worked fairly well after she received several doses of digoxin. I also started intravenous heparin. She remains unaware of the arrhythmia. She evidently is not having any difficulty with bleeding. Social History Smoking Status: Current Every Day Smoker Review of Systems Respiratory: + cough, No shortness of breath, No sputum, No wheezing Cardiac: No chest pain, No edema, No palpitations Medications Cardiovascular: Item Value Date Time Digoxin 125 mcg/ 10 ml @ 2 mls/min 11/27/16 1600 Syringe DAILY@16/IV Lisinopril 5 mg 11/27/16 0900 (Zestril Tab) DAILY/PO 11/27/16 1001 Triamterene/HCTZ 1 cap 11/27/16 0900 (Dyazide 37.5/25 DAILY/PO 11/27/16 1002 Mg Cap) Heparin Sodium/ 500 ml @ 22 mls/hr 11/26/16 1615 Dextrose .[id number] PRN/IV 11/26/16 1657 Diltiazem HCl 125 125 ml @ 0 mls/hr 11/26/16 1545 mg/Dextrose .Q0M PRN/IV 11/27/16 0010 Objective Vital Signs Past 12 Hours Date Time Temp Pulse Resp B/P Pulse Ox O2 Delivery O2 Flow Rate FiO2 11/27/16 07:00 89 18 94 Mask 4.0 11/27/16 04:00 36.4 91 103/48 97 Mask 4.0 11/27/16 04:00 97 Nasal Cannula 4.0 Mask 11/27/16 03:00 90 101/50 96 11/27/16 02:30 100 99/49 97 11/27/16 02:01 83 94/42 95 11/27/16 00:00 97 Nasal Cannula 4.0 Mask 11/27/16 00:00 36.4 81 106/41 97 Mask 4.0 Last Recorded Weight-Kilograms: 74.000 Intake & Output 8-Hour Column 11/26/16 11/26/16 11/27/16 15:59 23:59 07:59 Intake Total 965 ml 907 ml 776 ml Output Total 450 ml 150 ml 150 ml Balance 515 ml 757 ml 626 ml 24-Hour Column 11/27/16 07:59 Intake Total 2648 ml Output Total 750 ml Balance 1898 ml Physical Exam Constitutional: Level of Distress: moderate distress Lungs: Respiratory effort: good air movement, dyspneic Auscultation: decreased breath sounds, expiratory wheezing, rhonchi Cardiovascular: Heart Auscultation: no murmurs, no rubs, no gallops, irregular rate rhythm Peripheral Pulses: Bruits: none appreciated Extremities: no edema Data Laboratory Results: Last 24 Hours Test 11/26/16 11:20 11/26/16 16:00 11/26/16 16:16 11/26/16 20:02 Bedside Glucose 131 mg/dl 130 mg/dl 232 mg/dl White Blood Count 17.45 K/uL Red Blood Count 3.64 M/uL Hemoglobin 11.1 g/dL Hematocrit 37.6 % Mean Corpuscular Volume 103.3 fL Mean Corpuscular Hemoglobin 30.5 pg Mean Corpuscular Hemoglobin Concent 29.5 g/dl RDW Standard Deviation 52.5 fL RDW Coefficient of Variation 14.0 % Platelet Count 248 K/uL Mean Platelet Volume 9.8 fL Prothrombin Time 10.0 SECONDS Prothromb Time International Ratio 0.9 Activated Partial Thromboplast Time 22.3 SECONDS Partial Thromboplastin Ratio 0.9 Test 11/27/16 05:50 11/27/16 08:10 11/27/16 10:00 White Blood Count 14.16 K/uL Red Blood Count 3.47 M/uL Hemoglobin 10.5 g/dL Hematocrit 36.0 % Mean Corpuscular Volume 103.7 fL Mean Corpuscular Hemoglobin 30.3 pg Mean Corpuscular Hemoglobin Concent 29.2 g/dl Platelet Count 238 K/uL Mean Platelet Volume 9.7 fL Neutrophils (%) (Auto) 79.2 % Lymphocytes (%) (Auto) 7.8 % Monocytes (%) (Auto) 12.4 % Eosinophils (%) (Auto) 0.1 % Basophils (%) (Auto) 0.1 % Neutrophils # (Auto) 11.21 K/uL Lymphocytes # (Auto) 1.10 K/uL Monocytes # (Auto) 1.76 K/uL Eosinophils # (Auto) 0.02 K/uL Basophils # (Auto) 0.01 K/uL RDW Standard Deviation 51.5 fL RDW Coefficient of Variation 13.8 % Immature Granulocyte % (Auto) 0.4 % Immature Granulocyte # (Auto) 0.06 K/uL Sodium Level 140 mmol/L Potassium Level 5.1 mmol/L Chloride Level 97 mmol/L Carbon Dioxide Level 39 mmol/L Anion Gap 4.0 mmol/L Blood Urea Nitrogen 75 mg/dl Creatinine 1.40 mg/dl Est Creatinine Clear Calc Drug Dose 33.2 ml/min Estimated GFR () 41.9 Estimated GFR (Non- 36.2 BUN/Creatinine Ratio 53.8 Random Glucose 197 mg/dl Calcium Level 8.8 mg/dl Phosphorus Level 7.1 mg/dl 5.0 mg/dl Magnesium Level 2.8 mg/dl 2.6 mg/dl Digoxin Level 1.7 ng/ml Activated Partial Thromboplast Time 54.6 SECONDS Partial Thromboplastin Ratio 2.1 Telemetry reviewed: Her heart rate came under good control yesterday evening and remained so overnight Assessment and Plan #1. Atrial fibrillation: Her and her are certainly familiar with the term atrial fibrillation and tell me that she had it diagnosed many years ago. I can't find specifics about it, but she has never been offered an anticoagulant but she was on Inderal presumably for the arrhythmia. She probably has paroxysmal atrial fibrillation based on this but I can't be sure. Her heart rate is fairly well controlled on diltiazem and digoxin, although her blood pressure is borderline. At this point is been 24 hours since she went into atrial fibrillation I think we should try to get her out of it, she has been on heparin so this is a safe thing to do. I am going to start amiodarone with a bolus and drip. If she remains in atrial fibrillation we may want to consider cardioversion. I'm going to continue heparin for now, over the long run she probably should be on chronic anticoagulation but we don't need to start that as yet. Thank you for allowing me to participate in her care.
[2016-11-27] MEDS: AMIODARONE / D5W 200 ML IV SCH (16:31)
[2016-11-27] MEDS: DIGOXIN IV 125 MCG in SYRINGE 9.5 ML IV SCH (17:04)
[2016-11-27 17:19] LABS: VEN BLD GAS O2 SATURATION 74.8 %; VEN BLOOD GAS BASE EXCESS 8.2 mmol/L
[2016-11-27 17:52] LABS: CALCIUM 8.9 mg/dl (8.5-10.1); CREATININE 1.5 mg/dl (0.60-1.20); MAGNESIUM 2.8 mg/dl (1.8-2.4); PHOSPHORUS 5.1 mg/dl (2.5-4.9); POTASSIUM 5.6 mmol/L (3.5-5.1)
[2016-11-27] MEDS ORDERED: FUROSEMIDE INJ 20 MG in SYRINGE 0 ML IV ONE (19:00)
[2016-11-27] MEDS: MONTELUKAST SOD 10 MG TAB PO SCH (21:05)
[2016-11-28] VITALS (18 sets, daily range): BP systolic 136–160; BP diastolic 59–100; PULSE 75–148; TEMP 36–36.9; O2SAT 90–97
[2016-11-28] MEDS: IMIPENEM/CILASTATIN IV 500 MG in DEXTROSE 5% 100ML 100 ML IV SCH ×3 (02:10→18:45)
[2016-11-28] MEDS: AMIODARONE / D5W 200 ML IV SCH ×3 (04:40→21:03)
[2016-11-28] MEDS ORDERED: FUROSEMIDE 40 MG/4 ML VIAL IV STA (06:36)
[2016-11-28] MEDS: INSULIN ASPART 100 UNITS/ML 3 ML PEN SC SCH ×4 (07:00→22:00)
[2016-11-28 07:08] LABS: HEMATOCRIT 39.2 % (37-47); MEAN CELL VOLUME 99.5 fL (80-100); MEAN CORPUSCULAR HEMOGLOBIN 30.5 pg (25-34); MEAN CORPUSCULAR HGB CONC 30.6 g/dl (32-36); MEAN PLATELET VOLUME 9.8 fL (7.4-10.4); PLATELET COUNT 277 K/uL (130-400); RED BLOOD COUNT 3.94 M/uL (4.2-5.4); WHITE BLOOD COUNT 17.41 K/uL (4.8-10.8)
--- NOTE | 2016-11-28 07:08 | Family Medicine Progress Note ---
Progress Note Date of Service Nov 28, 2016. Subjective Pt evaluation today including: conversation w/ patient, physical exam, chart review, lab review Patient was dyspneic overnight. She was administered a second dose of IV Lasix in attempts to improve symptoms. She did not tolerate Bipap and was switched back to oxygen via venturi face mask. Speaking to her, this morning, patient was alert and oriented x 3 but in respiratory distress with accessory muscle usage. In addition, after her morning Xopenex nebulizer treatment, she had reverted to atrial fibrillation. Patient said she felt like she couldn't get air into her lungs. She was placed back on bipap in attempts to improve symptoms , and this seemed to make the patient feel better. She did not like the mask fitting and complained it was too tight, but sats immediately dropped when mask was released (for meds). As such patient advised that she needed to keep the mask on. She was eventually agreeable. She otherwise denied CP, palpitations, lightheadedness or any other symptoms of atrial fibrillation but did say she felt groggy. Constitutional: No fever Respiratory: + cough, + shortness of breath Cardiovascular: No chest pain, No edema, No palpitations Abdomen: No nausea, No pain Objective Vital Signs Date Time Temp Pulse Resp B/P Pulse Ox O2 Delivery O2 Flow Rate FiO2 11/28/16 04:22 80 20 95 Nasal Cannula 4.0 11/28/16 04:09 36.6 75 24 155/59 93 Nasal Cannula 3.0 11/27/16 23:29 37.1 71 18 131/53 92 Nasal Cannula 3.0 11/27/16 20:00 97 BiPAP 50 11/27/16 19:47 36.6 64 22 136/49 96 BiPAP 11/27/16 19:26 84 96 50 11/27/16 18:57 68 18 94 Nasal Cannula 4.0 11/27/16 17:04 68 11/27/16 16:00 94 Nasal Cannula 5.0 11/27/16 13:45 65 94 11/27/16 12:16 77 105/42 95 11/27/16 12:01 94 96/38 90 Nasal Cannula 5.0 11/27/16 12:00 92 Nasal Cannula 5.0 11/27/16 11:30 82 82/34 92 11/27/16 11:00 88 85/51 91 11/27/16 10:01 98 96/45 93 11/27/16 09:30 102 101/52 94 11/27/16 08:00 90 Nasal Cannula 5.0 11/27/16 08:00 36.6 92 26 105/50 90 Mask 5.0 Physical Exam General Appearance: WD/WN, + moderate distress Eyes: normal inspection ENT: hearing grossly normal Neck: supple Respiratory/Chest: + respiratory distress, + decreased breath sounds, + accessory muscle use, + crackles Cardiovascular: + tachycardia, + irregularly irregular Abdomen: normal bowel sounds, non tender, soft Extremities: no pedal edema, no calf tenderness Neurologic/Psychiatric: alert, oriented x 3 Laboratory Results Results Past 24 Hours Test 11/27/16 19:56 11/28/16 05:48 11/28/16 06:48 11/28/16 09:31 Range/Units Bedside Glucose 187 107 153 70-90 mg/dl White Blood Count 17.41 4.8-10.8 K/uL Red Blood Count 3.94 4.2-5.4 M/uL Hemoglobin 12.0 12.0-16.0 g/dL Hematocrit 39.2 37-47 % Mean Corpuscular Volume 99.5 80-100 fL Mean Corpuscular Hemoglobin 30.5 25-34 pg Mean Corpuscular Hemoglobin Concent 30.6 32-36 g/dl RDW Standard Deviation 49.2 36.4-46.3 fL RDW Coefficient of Variation 13.5 11.5-14.5 % Platelet Count 277 130-400 K/uL Mean Platelet Volume 9.8 7.4-10.4 fL Activated Partial Thromboplast Time 35.3 21.0-31.0 SECONDS Partial Thromboplastin Ratio 1.4 Sodium Level 139 136-145 mmol/L Potassium Level 4.6 3.5-5.1 mmol/L Chloride Level 96 98-107 mmol/L Carbon Dioxide Level 40 21-32 mmol/L Anion Gap 3.0 3-11 mmol/L Blood Urea Nitrogen 71 7-18 mg/dl Creatinine 1.20 0.60-1.20 mg/dl Est Creatinine Clear Calc Drug Dose 39.4 ml/min Estimated GFR () 50.5 Estimated GFR (Non- 43.6 BUN/Creatinine Ratio 59.1 10-20 Random Glucose 116 70-99 mg/dl Calcium Level 9.6 8.5-10.1 mg/dl Phosphorus Level 3.6 2.5-4.9 mg/dl Magnesium Level 2.6 1.8-2.4 mg/dl Test 11/28/16 11:05 11/28/16 14:35 11/28/16 16:12 Range/Units Bedside Glucose 187 191 70-90 mg/dl Arterial Blood pH 7.37 7.35-7.45 Arterial Blood Partial Pressure CO2 75 35-46 mmHg Arterial Blood Partial Pressure O2 72 80-95 mm/Hg Arterial Blood HCO3 42 19-24 mmol/L Arterial Blood Oxygen Saturation 93.5 90-95 % Arterial Blood Base Excess 14.2 -9-1.8 mEq/L Arterial Blood Gas Delivery 50 Rd Test POS POS Assessment and Plan 76 yo F w/ hx of COPD on home O2 @ 4L, falls, chronic LE edema and generalized weakness, p/w acute worsening of SOB with acute hypoxic respiratory failure prior to arrival with VBG showing CO2 of 47 requiring immediate intubation. Was successfully extubated on 11/25/16. Atrial Fibrillation - Cardiology consulted - recs appreciated. Morning dose of propranolol given without impact in 20 min, rate control with diltiazem was commenced. Consultation with cardiology recommended rhythm control instead. EKG showed a.fib with RVR, ST & T wave abnormality suggesting lateral ischemia. Patient reverted to NSR with increased amiodarone. - Amiodarone IV 150mg loading dose x 10 days before switching to maintenance dose - Heparin for anticoagulation - Continue monitoring vitals Acute on Chronic Respiratory Failure - likely due to COPD exacerbation in the setting of pneumonia based on CXR showing bibasilar consolidation. Patient successfully extubated 11/25/16, maintaining normal saturation with supplemental oxygen. Fluid bolus given for hypotension. CXR 11/27 shows interval development of bibasilar parenchymal infiltrates combined with small left pleural effusion. Patient drowsy and VBG shows increased CO2 retention. - Bipap with settings increased to 15/5 and FiO2 50%, maintain sats 88-92% - baseline oxygen supplementation with 4L oxygen via NC UTI - colonized with Achromobacter xylosoxidans and h.influenzae beta-lactamase (+). ID consulted, recs appreciated. - Start imipenem/cilastatin. Currently day 3 of 5 Bibasilar consolidation - Sputum cx: normal rian, blood cx negative, (initial) urine cx negative. Aspiration precautions as per Speech and swallow eval - Covered with imipenem/cilastatin. Currently day 7 of 7. COPD exacerbation - ABG 11/28/16 not significantly changed - Discontinue Duoneb q6h, and revert to home inhalers: Spiriva, Brovana, Pulmicort, Daliresp, Singulair - Switched from PO prednisone taper to IV Solu-Medrol 40mg q12h in view of resp distress Pulmonary Congestion with KARINA- some KARINA 2/2 diuresis, with KCL supplementation - Monitor BMP and replace K+ as necessary Hyperlipidemia - Continue Atorvastatin 40mg daily HTN - Continue Propranolol. Hold Lisinopril and Triamtrene/HCTZ due to hypotension Cardio/DVT/GI Prophylaxis - Continue aspirin - Continue Heparin drip, SCD and TEDs (Lovenox contra-indicated due to KARINA) - Protonix 40 mg IV daily discontinued DM - Continue Lantus 10 units daily + sliding scale Dispo - OT/PT evals pending Code status - Full Code Resident Physician Supervision Note: I was present with Dr. Glaser during the history and exam. I discussed the case with the resident and agree with the findings and plan as documented in the note. Documented By: Lior Bellamy Continued [facility] stay due to: abnormal vital signs, multiple IV medications needed Discharge planning: uncertain Resident Tracking Resident Involvement: Resident Care Provided Care Provided: Adult Hospital Medicine
[2016-11-28] MEDS ORDERED: NURSING VERBAL MED ORDER ONE ×2 (07:15→19:15)
[2016-11-28 07:26] LABS: PARTIAL THROMBOPLASTIN RATIO 1.4
[2016-11-28] MEDS: BOOST VANILLA PO SCH ×4 (07:30→15:48)
[2016-11-28] MEDS ORDERED: IPRATROPIUM BROMIDE NEB SOLN 0.02% 2.5 ML VIAL INH SCH (07:45)
[2016-11-28] MEDS ORDERED: LEVALBUTEROL 1.25MG/0.5ML NEB INH SCH (07:45)
[2016-11-28 07:46] LABS: BUN/CREATININE RATIO 59.1 (10-20); CALCIUM 9.6 mg/dl (8.5-10.1); CREATININE 1.2 mg/dl (0.60-1.20); MAGNESIUM 2.6 mg/dl (1.8-2.4); PHOSPHORUS 3.6 mg/dl (2.5-4.9); POTASSIUM 4.6 mmol/L (3.5-5.1)
[2016-11-28] MEDS: ARFORMOTEROL TART 15MCG/2ML VIAL INH SCH ×2 (08:00→19:45)
[2016-11-28] MEDS: BUDESONIDE 0.5 MG/2 ML VIAL (PULMICORT) INH SCH ×2 (08:00→19:45)
[2016-11-28] MEDS: PROPRANOLOL HCL 80 MG TAB PO SCH ×3 (08:02→21:57)
[2016-11-28] MEDS ORDERED: DILTIAZEM BOLUS / DRIP IV STA (08:28)
[2016-11-28] MEDS: IPRATROPIUM BROMIDE NEB SOLN 0.02% 2.5 ML VIAL INH SCH ×3 (08:41→19:45)
[2016-11-28] MEDS: LEVALBUTEROL 1.25MG/0.5ML NEB INH SCH ×3 (08:41→19:46)
[2016-11-28] MEDS ORDERED: DILTIAZEM HCL INJ 125 MG in DEXTROSE 5% 100ML IV PRN (08:45)
[2016-11-28] MEDS ORDERED: AMIODARONE IV BOLUS / DRIP IV STA (08:50)
--- NOTE | 2016-11-28 09:02 | DIAGNOSTIC IMAGING REPORT ---
CHEST ONE VIEW PORTABLE CLINICAL HISTORY: Shortness of breath/ labored breathing COMPARISON STUDY: Chest radiograph November 27, 2016. FINDINGS: A right PICC is in place. Bilateral pleural effusions, left larger than right, are unchanged. Bibasilar opacities persist. There is pulmonary vascular congestion. IMPRESSION: 1. No change in the small to moderate left pleural effusion and the small right pleural effusion. 2. Persistent bibasilar opacities which could reflect atelectasis or consolidation. 3. Pulmonary vascular congestion. Electronically signed by: Crsitobal Farah M.D. 11/28/2016 9:00 AM Dictated Date/Time: 11/28/2016 9:00 AM
[2016-11-28] MEDS ORDERED: AMIODARONE / D5W 200 ML IV ONE (09:30)
[2016-11-28] MEDS ORDERED: AMIODARONE / D5W 100 ML IV ONE (09:30)
[2016-11-28] MEDS: TIOTROPIUM BROMIDE 5 PUFF/90 MCG INH INH SCH (09:30)
[2016-11-28] MEDS: SENNA 8.6 MG TAB PO SCH (09:31)
[2016-11-28] MEDS: ROFLUMILAST 500 MCG TAB PO SCH (09:32)
[2016-11-28] MEDS: ATORVASTATIN 40 MG TAB PO SCH (09:33)
[2016-11-28] MEDS: ASPIRIN 81 MG CHEW PO SCH (09:34)
[2016-11-28] MEDS ORDERED: HEPARIN IV BOLUS 5,000 UNIT in SYRINGE 0 ML IV ONE (10:00)
[2016-11-28] MEDS: HEPARIN 25,000 UNIT/500ML D5W 500 ML IV PRN ×2 (10:16→15:50)
[2016-11-28] MEDS: LEVALBUTEROL 1.25MG/0.5ML NEB INH PRN (10:55)
[2016-11-28] MEDS: IPRATROPIUM BROMIDE NEB SOLN 0.02% 2.5 ML VIAL INH PRN (10:55)
--- NOTE | 2016-11-28 12:07 | CARDIOLOGY PROGRESS NOTE ---
DATE: 11/28/2016 DATE: 11/28/2016. TIME: 11:31 a.m. SUBJECTIVE: I was called this morning about atrial fibrillation with rapid ventricular response. Overnight she was in sinus rhythm and then developed atrial fibrillation with rapid ventricular response following a Xopenex treatment. She then converted to sinus rhythm when her oxygen saturation improved per nursing staff. She then later this morning, at approximately 6:48 a.m. she got a dose of intravenous Lasix 40 mg. She then went back into atrial fibrillation with rapid ventricular response with heart rates in the 140s-150s. She once again became hypoxic and was placed on BiPAP. Dr. Glaser of the hospitalist service notified me earlier this morning via telephone that this occurred. She had placed the patient back on a diltiazem drip for rate control strategy. It was recommended at that time to rebolus her amiodarone with 150 mg IV and continue amiodarone for rhythm control strategy. She has converted to sinus rhythm at 10:32 a.m. following rebolus of amiodarone. The patient herself denies chest pain, syncope, palpitations or edema. She admits that she is short of breath. At home, she uses 4 liters of oxygen via nasal cannula. OBJECTIVE: VITAL SIGNS: Temperature 36.9 degrees, heart rate 77 beats per minute, respiration rate 22, blood pressure 141/59 mmHg, oxygen saturation 94% on BiPAP. GENERAL: In no acute distress. She is alert. NECK: Thick. Difficult to assess JVD. CARDIAC EXAMINATION: No ventricular heave, distant heart sounds. S1 and S2 were audible. There were no audible murmurs, rubs or gallops. LUNGS: Decreased breath sounds throughout, but otherwise appeared clear. ABDOMEN: Obese, soft, nontender, nondistended, normoactive bowel sounds, no bruits. EXTREMITIES: No cyanosis or edema. PSYCHIATRIC: Affect appears appropriate. MEDICATIONS: Include amiodarone drip, aspirin 81 mg daily, Lipitor 40 mg daily, digoxin 125 mcg IV daily, heparin drip per protocol, imipenem IV, Xopenex, Singulair, propranolol 80 mg p.o. b.i.d., Lasix 40 mg IV x1 at 6:48 a.m. LABORATORY DATA: White blood cell count is 17.4, hemoglobin 12, platelets 277. Sodium 139, potassium 4.6, BUN 71 down from 81, creatinine 1.2 down from 1.5, magnesium 2.6. PTT 35. ProBNP on 11/21/2016 was 814. Telemetry personally reviewed. Currently in sinus rhythm. ECG from this morning at 5:50 a.m. personally reviewed. Atrial fibrillation with rapid ventricular response, [address]/T-wave abnormality in the lateral leads. Chest x-ray image this morning personally reviewed. Bilateral pleural effusions. Prominent vasculature noted. Radiology has interpreted this as a small to moderate left pleural effusion and small right pleural effusion. Persistent bibasilar opacities. Pulmonary vascular congestion. ASSESSMENT AND PLAN: 1. Paroxysmal atrial fibrillation with rapid ventricular response: She has been evaluated by electrophysiology and a rhythm control strategy was recommended. Therefore, rebolusing with amiodarone IV was recommended this morning. At some point, possibly tomorrow or early next week we will try to transition to oral amiodarone therapy. Would recommend loading dose for approximately 10 days if possible. Continue anticoagulation for stroke risk reduction. She is currently on a heparin drip. She appears to be asymptomatic from her atrial fibrillation. Will repeat ECG now that she is in sinus rhythm. 2. Hypoxia: She has COPD and is also being treated for pneumonia. It is difficult to know her volume status on exam, although she has no edema and her ProBNP was not overly remarkable. 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 She already received some Lasix this morning. It does not appear as though she needs a standing dose diuretics at this time and her echocardiogram earlier this hospitalization actually demonstrated hyperdynamic LV systolic function. 3. Disposition: Cardiology will continue to follow. Plan of care has been discussed with primary service.
[2016-11-28 14:43] LABS: ARTERIAL BLD GAS O2 SATURATION 93.5 % (90-95); ARTERIAL BLOOD GAS BASE EXCESS 14.2 mEq/L (-9-1.8); ARTERIAL BLOOD GAS HCO3 42 mmol/L (19-24); ARTERIAL BLOOD GAS PO2 72 mm/Hg (80-95); ARTERIAL BLOOD GAS pH 7.37 (7.35-7.45)
[2016-11-28 14:44] LABS: ALLEN TEST POS (POS); O2 ADMINISTRATION 50
[2016-11-28] MEDS: DIGOXIN IV 125 MCG in SYRINGE 9.5 ML IV SCH (15:49)
[2016-11-28] MEDS ORDERED: METHYLPREDNISOLONE IV 40 MG in SYRINGE 0 ML IV ONE (16:00)
[2016-11-28 18:56] LABS: PARTIAL THROMBOPLASTIN RATIO 2.1
[2016-11-28] MEDS: METOPROLOL TARTRATE 1 MG/ML VIAL IV PRN (19:38)
[2016-11-28] MEDS: MONTELUKAST SOD 10 MG TAB PO SCH ×2 (21:00→21:57)
[2016-11-29] VITALS (17 sets, daily range): BP systolic 107–177; BP diastolic 44–76; PULSE 70–124; TEMP 36.4–37.4; O2SAT 94–99
[2016-11-29] MEDS: METOPROLOL TARTRATE 1 MG/ML VIAL IV PRN ×5 (00:53→19:15)
[2016-11-29] MEDS ORDERED: NURSING VERBAL MED ORDER ONE (01:30)
[2016-11-29] MEDS ORDERED: AMIODARONE / D5W 100 ML IV STA (01:35)
[2016-11-29] MEDS: IMIPENEM/CILASTATIN IV 500 MG in DEXTROSE 5% 100ML 100 ML IV SCH ×3 (01:43→17:06)
[2016-11-29] MEDS: LEVALBUTEROL 1.25MG/0.5ML NEB INH SCH ×4 (02:42→20:58)
[2016-11-29] MEDS: IPRATROPIUM BROMIDE NEB SOLN 0.02% 2.5 ML VIAL INH SCH ×4 (02:42→20:58)
[2016-11-29] MEDS: METHYLPREDNISOLONE IV 40 MG in SYRINGE 0 ML IV SCH ×2 (04:31→16:26)
[2016-11-29] MEDS ORDERED: LORAZEPAM 2 MG/ML 1 ML VIAL IV STA (05:40)
[2016-11-29 05:48] LABS: IPAP 15; ISTAT ALLEN TEST Pass; ISTAT ARTERIAL BLOOD GAS HCO3 42 meq/L (19-24); ISTAT ARTERIAL BLOOD GAS PCO2 75 mmHg (35-46); ISTAT ARTERIAL BLOOD GAS PO2 78 mmHg (80-95); ISTAT ARTERIAL BLOOD GAS pH 7.35 (7.35-7.45); ISTAT CARBON DIOXIDE > 40 mEq/l (24-31); ISTAT DELIVERY SYSTEM BIPAP; ISTAT FIO2 50 %; ISTAT RATE 30; ISTAT SITE R Radial
--- NOTE | 2016-11-29 07:21 | Family Medicine Progress Note ---
Progress Note Date of Service Nov 29, 2016. Subjective Pt evaluation today including: physical exam, chart review, lab review Patient received Ativan for agitation early this morning, and has since been very somnolent. She awakens to verbal and tactile stimulation, but falls asleep mid response. She was in atrial fibrillation overnight, but is currently in NSR. She had worn Bipap mask all day yesterday, but is back on nasal cannula currently as a break. Unable to ascertain ROS due to patient's inability to stay awake and respond to questions Objective Vital Signs Date Time Temp Pulse Resp B/P Pulse Ox O2 Delivery O2 Flow Rate FiO2 11/29/16 04:47 133 171/151 11/29/16 04:00 98 BiPAP 11/29/16 03:49 36.6 70 22 116/44 98 BiPAP 11/29/16 02:43 101 96 50 11/29/16 00:53 121 165/65 11/29/16 00:33 88 165/65 96 BiPAP 11/29/16 00:01 97 BiPAP 4.0 11/29/16 00:00 36.4 76 22 177/76 97 BiPAP 11/28/16 22:41 91 96 50 11/28/16 20:00 BiPAP 50 Venturi Mask 11/28/16 19:47 124 96 50 11/28/16 19:46 118 20 96 BiPAP/CPAP 50 11/28/16 19:38 128 169/84 11/28/16 19:33 36.4 146 20 160/100 95 BiPAP 11/28/16 17:15 96 50 11/28/16 16:00 BiPAP 50 Venturi Mask 11/28/16 15:49 77 11/28/16 15:39 36.0 78 22 147/60 97 BiPAP 11/28/16 14:31 77 22 96 BiPAP/CPAP 50 11/28/16 14:30 77 96 50 11/28/16 12:00 BiPAP 50 Venturi Mask 11/28/16 11:31 36.8 75 20 136/62 94 11/28/16 10:55 77 22 94 BiPAP/CPAP 50 11/28/16 10:55 77 94 50 11/28/16 08:33 50 11/28/16 08:20 120 96 80 11/28/16 08:00 94 BiPAP 80 Venturi Mask 11/28/16 07:59 148 94 100 11/28/16 07:57 36.9 89 20 141/59 96 11/28/16 07:40 85 20 90 Venturi Mask Physical Exam General Appearance: WD/WN, no apparent distress Neck: supple Respiratory/Chest: no accessory muscle use, + respiratory distress (Quick shallow breaths), + decreased breath sounds, + crackles Cardiovascular: regular rate, rhythm, no murmur Abdomen: normal bowel sounds, soft Extremities: normal inspection, no pedal edema Neurologic/Psychiatric: + pertinent finding (Altered mental status secondary to Ativan administration) Skin: normal color, warm/dry, no rash Laboratory Results Results Past 24 Hours Test 11/28/16 14:35 11/28/16 16:12 11/28/16 18:25 11/28/16 20:14 Range/Units Arterial Blood pH 7.37 7.35-7.45 Arterial Blood Partial Pressure CO2 75 35-46 mmHg Arterial Blood Partial Pressure O2 72 80-95 mm/Hg Arterial Blood HCO3 42 19-24 mmol/L Arterial Blood Oxygen Saturation 93.5 90-95 % Arterial Blood Base Excess 14.2 -9-1.8 mEq/L Arterial Blood Gas Delivery 50 Rd Test POS POS Bedside Glucose 191 179 70-90 mg/dl Activated Partial Thromboplast Time 55.3 21.0-31.0 SECONDS Partial Thromboplastin Ratio 2.1 Test 11/29/16 04:44 11/29/16 05:34 11/29/16 05:36 11/29/16 06:24 Range/Units Activated Partial Thromboplast Time 40.7 21.0-31.0 SECONDS Partial Thromboplastin Ratio 1.6 Blood Gas Sample Site R Radial Bedside Blood Gas pH (LAB) 7.35 7.35-7.45 Bedside Blood Gas pCO2 (LAB) 75 35-46 mmHg Bedside Blood Gas pO2 (LAB) 78 80-95 mmHg Bedside Blood Gas HCO3 (LAB) 42 19-24 meq/L Bedside Blood Gas Total CO2 > 40 24-31 mEq/l Bedside Blood Gas Base Excess (LAB) 17.0 -9-1.8 meq/L Bedside Blood Gas O2 Saturation 94.0 90-95 % Rd Test Pass Oxygen Delivery Device BIPAP Bedside Oxygen Rate (breaths/min) 30 Bedside FiO2 50 % Blood Gas IPAP 15 Bedside Glucose 182 151 70-90 mg/dl Test 11/29/16 07:10 11/29/16 11:20 Range/Units Sodium Level 141 136-145 mmol/L Potassium Level 4.4 3.5-5.1 mmol/L Chloride Level 94 98-107 mmol/L Carbon Dioxide Level 40 21-32 mmol/L Anion Gap 7.0 3-11 mmol/L Blood Urea Nitrogen 63 7-18 mg/dl Creatinine 1.00 0.60-1.20 mg/dl Est Creatinine Clear Calc Drug Dose 47.4 ml/min Estimated GFR () 62.9 Estimated GFR (Non- 54.3 BUN/Creatinine Ratio 63.2 10-20 Random Glucose 151 70-99 mg/dl Calcium Level 9.2 8.5-10.1 mg/dl Phosphorus Level 3.5 2.5-4.9 mg/dl Magnesium Level 2.1 1.8-2.4 mg/dl Chemistry Specimen Hemolysis Bedside Glucose 171 70-90 mg/dl Assessment and Plan 76 yo F w/ hx of COPD on home O2 @ 4L, falls, chronic LE edema and generalized weakness, p/w acute worsening of SOB with acute hypoxic respiratory failure prior to arrival with VBG showing CO2 of 47 requiring immediate intubation. Was successfully extubated on 11/25/16. Paroxysmal Atrial Fibrillation - Cardiology consulted - recs appreciated. Aiming for rhythm control strategy - Amiodarone drip with plans to oralize elevated dose once patient more awake. - Heparin for anticoagulation - Continue monitoring vitals Acute on Chronic Respiratory Failure - likely due to COPD exacerbation in the setting of pneumonia based on CXR showing bibasilar consolidation. Patient successfully extubated 11/25/16, maintaining normal saturation with supplemental oxygen. Fluid bolus given for hypotension. CXR 11/27 shows interval development of bibasilar parenchymal infiltrates combined with small left pleural effusion. Patient drowsy and VBG shows increased CO2 retention. - Bipap with settings increased to 15/5 and FiO2 50%, maintain sats 88-92% - baseline oxygen supplementation with 4L oxygen via NC - Patient allowed to be off Bipap for meals and 1 hour afterward assuming sats are maintained. Plans to reassess need to be on Bipap during this time. UTI - colonized with Achromobacter xylosoxidans and h.influenzae beta-lactamase (+). ID consulted, recs appreciated. - Start imipenem/cilastatin. Currently day 4 of 5 Pulmonary Congestion with KARINA- some KARINA 2/2 diuresis, with KCL supplementation. But CXR 11/29/16 shows persistent bilateral pleural effusions with associated bibasal airspace opacities - Patient given Lasix IV 40 mg x2 for pulm congestion/pleural effusion on CXR - Monitor BMP and hydration status and replace K+ as necessary COPD exacerbation - ABG 11/28/16 not significantly changed - Home inhalers: Spiriva, Brovana, Pulmicort, Daliresp, Singulair - IV Solu-Medrol 40mg q12h in view of resp distress Bibasilar consolidation - Sputum cx: normal rian, blood cx negative, (initial) urine cx negative. Aspiration precautions as per Speech and swallow eval - Covered with imipenem/cilastatin. 7 day course completed 11/28/16 Hyperlipidemia - Continue Atorvastatin 40mg daily HTN - Continue Propranolol. Lisinopril and Triamtrene/HCTZ due to hypotension. Cardio/DVT/GI Prophylaxis - Continue aspirin - Continue Heparin drip, SCD and TEDs - Protonix 40 mg IV daily discontinued DM - Continue Lantus 10 units daily + sliding scale Dispo - OT/PT evals dependent Code status - Full Code Resident Physician Supervision Note: I was present with Dr. Glaser during the history and exam. I discussed the case with the resident and agree with the findings and plan as documented in the note. 76 y/o female with history of COPD admitted with acute hypoxic respiratory failure requiring intubation. She was successfully extubated on 11/25, however, requires BiPAP for the majority of the day (periods of NC at 4 lpm ). IV steroids restarted yesterday. IV lasix restarted today as she appears slightly hypervolemic today. Will closely monitor respiratory status as well as I/Os over the next 12-24 hours. Documented By: Lior Bellamy Continued [facility] stay due to: abnormal vital signs, multiple IV medications needed Discharge planning: uncertain Resident Tracking Resident Involvement: Resident Care Provided Care Provided: Adult Hospital Medicine
[2016-11-29 08:00] LABS: PARTIAL THROMBOPLASTIN RATIO 1.6
[2016-11-29] MEDS: ARFORMOTEROL TART 15MCG/2ML VIAL INH SCH ×2 (08:06→18:45)
[2016-11-29] MEDS: BUDESONIDE 0.5 MG/2 ML VIAL (PULMICORT) INH SCH ×2 (08:06→18:45)
[2016-11-29 08:08] LABS: BUN/CREATININE RATIO 63.2 (10-20); CALCIUM 9.2 mg/dl (8.5-10.1); MAGNESIUM 2.1 mg/dl (1.8-2.4); PHOSPHORUS 3.5 mg/dl (2.5-4.9); POTASSIUM 4.4 mmol/L (3.5-5.1)
[2016-11-29] MEDS: BOOST VANILLA PO SCH ×4 (08:09→17:01)
[2016-11-29] MEDS: INSULIN ASPART 100 UNITS/ML 3 ML PEN SC SCH ×4 (08:10→20:28)
--- NOTE | 2016-11-29 08:38 | DIAGNOSTIC IMAGING REPORT ---
CHEST ONE VIEW PORTABLE CLINICAL HISTORY: Shortness of breath, respiratory distress COMPARISON STUDY: 11/28/2016 FINDINGS: The cardiac and mediastinal contours remain stable. The right-sided PICC catheter remains unchanged in position. There are small bilateral pleural effusions. There is associated bibasal airspace opacities. There are few scattered pulmonary nodules, statistically postinflammatory.[ IMPRESSION: Persistent bilateral pleural effusions with associated bibasal airspace opacities Electronically signed by: Boo Kaplan M.D. 11/29/2016 8:37 AM Dictated Date/Time: 11/29/2016 8:36 AM
[2016-11-29] MEDS: ASPIRIN 81 MG CHEW PO SCH (09:00)
[2016-11-29] MEDS: ROFLUMILAST 500 MCG TAB PO SCH (09:00)
[2016-11-29] MEDS: TIOTROPIUM BROMIDE 5 PUFF/90 MCG INH INH SCH (09:00)
[2016-11-29] MEDS: SENNA 8.6 MG TAB PO SCH (09:00)
[2016-11-29] MEDS: PROPRANOLOL HCL 80 MG TAB PO SCH ×2 (09:00→20:26)
[2016-11-29] MEDS ORDERED: HEPARIN IV BOLUS 5,000 UNIT in SYRINGE 0 ML IV ONE (09:00)
[2016-11-29] MEDS: ATORVASTATIN 40 MG TAB PO SCH (09:00)
[2016-11-29] MEDS: AMIODARONE / D5W 200 ML IV SCH ×2 (09:26→20:29)
--- NOTE | 2016-11-29 10:57 | CARDIOLOGY PROGRESS NOTE ---
DATE: 11/29/2016 TIME: 10:01 a.m. SUBJECTIVE: Ms. Rueda received lorazepam 0.5 mg at 6:04 a.m. Since then she has been somnolent. She was able to answer some questions, but quickly would fall asleep during conversation. She did deny chest pain. She denies shortness of breath, but once again was quite somnolent and often did not open her eyes during verbal stimuli. Overnight, she continued to have episodes of paroxysmal atrial fibrillation. She received intermittent doses of metoprolol tartrate IV for rate control on an as-needed basis. She continues the amiodarone drip. Nursing staff has notified critical care team, Dr. Krause, given her respiratory status. Dr. Krause did touch base with me earlier this morning about her current status and he is aware and knows her from previous care. OBJECTIVE: VITAL SIGNS: Temperature is 37 degrees, heart rate currently 117 beats per minute. Respiration rate 20, blood pressure 138/51 mmHg. Oxygen saturation 95% on supplemental oxygen. She is currently on nasal cannula. I's and O's negative 1.1 liters yesterday. Weight is 77.3 kg. GENERAL: She is somnolent, but is arousable to verbal stimuli. NECK: Thick. Cannot appreciate any JVD. CARDIAC EXAM: Regular, normal S1, S2. No murmurs, rubs, or gallops were auscultated. LUNGS: Very little breath sounds throughout. Otherwise, clear. ABDOMEN: Soft, nontender, nondistended. Normoactive bowel sounds. EXTREMITIES: No cyanosis or edema. Telemetry personally reviewed. She was in sinus rhythm while initially evaluating telemetry and she was in sinus rhythm during the examination. Currently looking at telemetry, she is back in atrial fibrillation and her heart rate is 109 beats per minute. Overall, her heart rate in atrial fibrillation appears to be improving somewhat while on amiodarone. No ventricular arrhythmias. LABORATORY DATA: Sodium 141, potassium 4.4, BUN 63 down from 71, creatinine is 1, glucose 151, magnesium 2.1. PTT is 41. MEDICATIONS: Include amiodarone drip, aspirin 81 mg daily, atorvastatin 40 mg daily, digoxin 125 mcg IV daily, heparin drip per protocol, imipenem IV, methylprednisolone 40 mg IV q. 12, metoprolol tartrate 5 mg IV q. 4 hours p.r.n. heart rate above 120; propranolol 80 mg p.o. b.i.d.; however, she did not receive her oral medications this morning given her somnolent state. ECG from this morning personally reviewed. Atrial fibrillation at 134 beats per minute. Nonspecific ST abnormality, this ECG was at 4:59 a.m. An ECG performed this morning at 6:41 a.m. demonstrated sinus rhythm at 73 beats per minute. Chest x-ray report reviewed. Persistent bilateral pleural effusions with associated bibasilar airspace opacities per radiology. ABG pH 7.35, pCO2 of 75, pO2 of 78, oxygen saturation 94%. ASSESSMENT AND PLAN: 1. Paroxysmal atrial fibrillation with rapid ventricular response: Continue intravenous amiodarone. There was consideration for oral amiodarone today; however, nursing staff, Tom, states that with her current mental status there is concern for safety with swallowing. After examining her, would hold off on oral amiodarone until she is more awake. Can continue IV amiodarone today. Continue anticoagulation for stroke risk reduction. She is currently on a heparin drip. When able, would resume her oral beta-golden when she can safely swallow. In the meantime, there is intravenous beta-golden available for tachycardia. She is also on digoxin as per electrophysiology. 2. Hypoxia: She does not appear to be significantly hypovolemic, although her exam is difficult given her thick neck. She has been diuresed. Her ProBNP was not significantly elevated. She is maintaining adequate oxygen saturations on current supplementation. 3. Chronic hypercapnic hypoxemic respiratory failure: She is using BiPAP intermittently to help with CO2 retention. The critical care team, Dr. Krause, is aware of her current status in case she requires further critical care services. She is retaining CO2 with the CO2 level this morning at 75. Would have low threshold for ICU status. DISPOSITION: Cardiology will continue to follow. Cardiology care has been discussed with Dr. Glaser of the primary service. Dr. Dos Santos will resume her cardiology care tomorrow.
[2016-11-29] MEDS ORDERED: FUROSEMIDE INJ 20 MG in SYRINGE 0 ML IV ONE (13:00)
[2016-11-29 13:23] LABS: ISTAT ALLEN TEST Pass; ISTAT ARTERIAL BLOOD GAS HCO3 47 meq/L (19-24); ISTAT ARTERIAL BLOOD GAS PCO2 78 mmHg (35-46); ISTAT ARTERIAL BLOOD GAS PO2 53 mmHg (80-95); ISTAT ARTERIAL BLOOD GAS pH 7.39 (7.35-7.45); ISTAT CARBON DIOXIDE > 40 mEq/l (24-31); ISTAT DELIVERY SYSTEM Cannula; ISTAT SITE R Radial
--- NOTE | 2016-11-29 14:51 | Pharmacy Progress Note ---
Glycemic: Assessment & Plan Date of Service Nov 29, 2016. Assessment & Plan Assessment * 76 yo F with steroid-induced hyperglycemia. Patient's HbA1c indicates pre- diabetes. Not on any outpatient diabetes medications. * BSG's ranging 171-191 mg/dL over the last 24 hours, but no CHO charted as administered * Steroids increased yesterday 2nd increased respiratory distress. * Would normally tighten carb ratio, but patient has not consumed any carbs since tightened on 11/27 despite being ordered a regular diet * Will maintain current regimen but monitor closely Plan Continue the following: * Basal insulin: None * Correctional Insulin: Novolog Correction per scale ACHS Goal Range: Low 120 mg/dL - High 160 mg/dL Correction Factor: 30 mg/dL/unit * Prandial insulin: Per carb ratio of 1 unit per 12 grams CHO consumed Pharmacy will continue to monitor patient daily and write orders per [facility] inpatient glycemic control protocol. Thanks. * Please note that the plan above was derived based on current level of insulin resistance and hospital stress. These recommendations are appropriate for inpatient admission only. Plan of care upon discharge will need to be reassessed to avoid potential outpatient hypo/hyperglycemia.
[2016-11-29 16:10] LABS: PARTIAL THROMBOPLASTIN RATIO 4.2
[2016-11-29] MEDS: DIGOXIN IV 125 MCG in SYRINGE 9.5 ML IV SCH (16:27)
[2016-11-29] MEDS: HEPARIN 25,000 UNIT/500ML D5W 500 ML IV PRN ×3 (17:39→22:47)
[2016-11-29] MEDS: FUROSEMIDE INJ 40 MG in SYRINGE 0 ML IV SCH ×2 (20:17→22:27)
[2016-11-29] MEDS: MONTELUKAST SOD 10 MG TAB PO SCH (20:26)
[2016-11-29 22:22] LABS: PARTIAL THROMBOPLASTIN RATIO 2.4
[2016-11-30] VITALS (15 sets, daily range): BP systolic 114–136; BP diastolic 40–60; PULSE 62–111; TEMP 36.5–37; O2SAT 94–98
[2016-11-30] MEDS: LEVALBUTEROL 1.25MG/0.5ML NEB INH SCH ×4 (01:30→19:26)
[2016-11-30] MEDS: IPRATROPIUM BROMIDE NEB SOLN 0.02% 2.5 ML VIAL INH SCH ×4 (01:30→19:26)
[2016-11-30] MEDS: METOPROLOL TARTRATE 1 MG/ML VIAL IV PRN ×2 (01:36→08:11)
[2016-11-30] MEDS: IMIPENEM/CILASTATIN IV 500 MG in DEXTROSE 5% 100ML 100 ML IV SCH ×3 (02:32→17:34)
[2016-11-30] MEDS: METHYLPREDNISOLONE IV 40 MG in SYRINGE 0 ML IV SCH ×2 (04:16→15:21)
[2016-11-30 06:26] LABS: MEAN CELL VOLUME 97.1 fL (80-100); MEAN CORPUSCULAR HGB CONC 30.9 g/dl (32-36); MEAN PLATELET VOLUME 10.3 fL (7.4-10.4); PLATELET COUNT 318 K/uL (130-400); WHITE BLOOD COUNT 13.64 K/uL (4.8-10.8)
[2016-11-30 06:49] LABS: PARTIAL THROMBOPLASTIN RATIO 2.6
[2016-11-30] MEDS: BUDESONIDE 0.5 MG/2 ML VIAL (PULMICORT) INH SCH ×2 (07:23→19:26)
[2016-11-30] MEDS: ARFORMOTEROL TART 15MCG/2ML VIAL INH SCH ×2 (07:23→19:26)
[2016-11-30] MEDS: AMIODARONE / D5W 200 ML IV SCH ×2 (08:10→19:45)
[2016-11-30] MEDS: BOOST VANILLA PO SCH ×4 (08:12→15:21)
[2016-11-30] MEDS: INSULIN ASPART 100 UNITS/ML 3 ML PEN SC SCH ×4 (08:14→21:43)
[2016-11-30] MEDS ORDERED: IMIPENEM/CILASTATIN CONSULT ACTIVE PRN (09:15)
[2016-11-30] MEDS: ROFLUMILAST 500 MCG TAB PO SCH (09:38)
[2016-11-30] MEDS: SENNA 8.6 MG TAB PO SCH (09:38)
[2016-11-30] MEDS: ATORVASTATIN 40 MG TAB PO SCH (09:38)
[2016-11-30] MEDS: FUROSEMIDE INJ 40 MG in SYRINGE 0 ML IV SCH (09:39)
[2016-11-30] MEDS: PROPRANOLOL HCL 80 MG TAB PO SCH ×2 (09:39→21:41)
[2016-11-30] MEDS: ASPIRIN 81 MG CHEW PO SCH (10:34)
[2016-11-30] MEDS: ACETAMINOPHEN 325 MG TAB PO PRN (10:34)
[2016-11-30] MEDS: TIOTROPIUM BROMIDE 5 PUFF/90 MCG INH INH SCH (10:35)
[2016-11-30] MEDS: HEPARIN 25,000 UNIT/500ML D5W 500 ML IV PRN (10:36)
[2016-11-30] MEDS: HYDROCODONE/ACETAMOPHEN 5/325MG TAB PO PRN ×3 (12:42→21:46)
--- NOTE | 2016-11-30 14:49 | Infectious Disease Progress Nt ---
Progress Note Date of Service Nov 30, 2016. Subjective Pt evaluation today including: conversation w/ patient, physical exam, chart review, lab review, review of studies, review of inpatient medication list Patient's WBC count today 13.64. She is very lethargic today. Creatinine stable at 1.00. Carbon Dioxide elevated to 40. Repeat CXR showed persistent bilateral pleural effusions with associated bibasal airspace opacities. She continues on IV Primaxin. She has completed 5 days. All Other Systems: Reviewed and Negative Medications Current Inpatient Medications Medications (Trade) Dose Ordered Sig/Omkar Route Start Time Stop Time Status Last Admin Dose Admin Acetaminophen (Tylenol Tab) 650 mg Q4H PRN PO 11/21/16 15:45 12/21/16 15:44 11/30/16 10:34 650 MG Atorvastatin Calcium (Lipitor Tab) 40 mg DAILY PO 11/22/16 09:00 12/22/16 08:59 12/01/16 07:43 40 MG Montelukast Sodium (Singulair Tab) 10 mg QPM PO 11/21/16 21:00 12/21/16 20:59 11/30/16 21:40 10 MG Propranolol HCl (Inderal Tab) 80 mg BID PO 11/21/16 21:00 12/21/16 20:59 12/01/16 07:43 80 MG Roflumilast (Daliresp Tab) 500 mcg DAILY PO 11/22/16 09:00 12/22/16 08:59 12/01/16 07:44 500 MCG Senna (Senokot Tab) 8.6 mg QAM PO 11/22/16 09:00 12/22/16 08:59 12/01/16 07:43 8.6 MG Aspirin (Aspirin Chew) 81 mg DAILY PO 11/23/16 09:00 12/23/16 08:59 11/30/16 10:34 81 MG Heparin Sodium (Porcine) (Heparin 10 Unit/ ml 5 ml Flush) 5 ml PRN PRN FLUSH 11/25/16 04:15 12/25/16 04:14 Ondansetron HCl (Zofran Tab) 4 mg Q4H PRN PO 11/26/16 00:30 12/26/16 00:29 11/26/16 03:06 4 MG Insulin Aspart (novoLOG ASPART) SLIDING SCALE ACHS SC 11/26/16 08:00 12/26/16 07:59 12/01/16 07:39 2 UNITS Arformoterol Tartrate (Brovana 15MCG/ 2ML Neb Soln) 15 mcg BIDR INH 11/26/16 20:00 12/26/16 19:59 12/01/16 07:01 15 MCG Budesonide (Pulmicort Respules 0.5MG/ 2ML Neb Soln) 0.5 mg BIDR INH 11/26/16 20:00 12/26/16 19:59 12/01/16 07:01 0.5 MG Tiotropium Raven (Spiriva Handihaler Inhaler) 1 puff DAILY INH 11/27/16 09:00 12/27/16 08:59 12/01/16 07:43 1 PUFF Lisinopril (Zestril Tab) 5 mg DAILY PO 11/27/16 09:00 12/27/16 08:59 Future Hold 11/27/16 10:01 5 MG Triamterene/HCTZ 1 cap 1 cap DAILY PO 11/27/16 09:00 12/27/16 08:59 Future Hold 11/27/16 10:02 1 CAP Digoxin 125 mcg/ Syringe 10 ml @ 2 mls/min DAILY@16 IV 11/27/16 16:00 12/27/16 15:59 11/30/16 15:20 2 MLS/MIN Heparin Sodium/ Dextrose (Heparin 25,000 Unit/500ml D5W) 500 ml @ 30 mls/hr [id number] PRN IV 11/26/16 16:15 12/26/16 16:14 Future Hold 11/30/16 10:36 30 MLS/HR Enteral Nutritional Formula (Boost) 1 can BIDM PO 11/26/16 16:30 12/26/16 16:29 12/01/16 07:44 1 CAN Miscellaneous Information (Consult Glycemic Management Pharmacy) 1 ea UD PRN N/A 11/27/16 07:00 12/27/16 06:59 Ipratropium Raven (Atrovent 0.02% 0.5MG/2.5ML Neb) 0.5 mg Q6R INH 11/28/16 09:00 12/28/16 07:44 12/01/16 02:39 0.5 MG Levalbuterol 1.25 mg 1.25 mg Q6R INH 11/28/16 09:00 12/28/16 07:44 12/01/16 02:39 1.25 MG Diltiazem HCl 125 mg/Dextrose 125 ml @ 0 mls/hr Q0M PRN IV 11/28/16 08:45 12/28/16 08:44 Future Hold Amiodarone HCL/ Dextrose (Nexterone / D5w) 200 ml @ 16.7 mls/hr [id number] IV 11/28/16 15:30 12/28/16 15:29 12/01/16 07:35 16.7 MLS/HR Ipratropium Raven (Atrovent 0.02% 0.5MG/2.5ML Neb) 0.5 mg Q2R PRN INH 11/28/16 09:15 12/28/16 09:14 11/28/16 10:55 0.5 MG Levalbuterol (Xopenex 1.25MG/ 0.5ML Neb) 1.25 mg Q2R PRN INH 11/28/16 09:15 12/28/16 09:14 11/28/16 10:55 1.25 MG Metoprolol Tartrate 5 mg 5 mg Q4H PRN IV 11/28/16 19:45 12/28/16 19:44 11/30/16 08:11 5 MG Imipenem/ Cilastatin Sodium/ Dextrose (Primaxin Iv/D5 100ml) 110 ml @ 100 mls/hr Q8H IV 11/30/16 10:00 12/02/16 09:59 12/01/16 02:34 100 MLS/HR Imipenem/ Cilastatin Sodium (Consult) 1 ea UD PRN N/A 11/30/16 09:15 12/30/16 09:14 Acetaminophen/ Hydrocodone Bitart 1 tab 1 tab Q4H PRN PO 11/30/16 12:30 12/14/16 12:29 11/30/16 21:46 1 TAB Methylprednisolone Sodium Succinate/ Syringe (Solu-Medrol IV/ Syringe) 0.64 ml @ 1.5 mls/min Q24H IV 12/02/16 06:00 01/01/17 05:59 Objective Vital Signs Date Time Temp Pulse Resp B/P Pulse Ox O2 Delivery O2 Flow Rate FiO2 11/30/16 12:00 BiPAP 50 Venturi Mask 11/30/16 11:50 36.7 72 25 121/40 97 Nasal Cannula 4.0 11/30/16 08:11 135 11/30/16 08:00 BiPAP 50 Venturi Mask 11/30/16 08:00 36.8 77 20 116/49 97 BiPAP 11/30/16 07:23 77 22 96 BiPAP/CPAP 50 11/30/16 04:00 96 BiPAP 4.0 50 11/30/16 03:51 37.0 76 24 114/47 96 BiPAP 11/30/16 01:42 111 98 50 11/30/16 01:36 133 111/61 11/30/16 01:30 111 22 98 BiPAP/CPAP 50 11/30/16 00:01 96 BiPAP 50 11/29/16 23:26 36.9 77 22 107/57 98 BiPAP 11/29/16 22:16 37.4 11/29/16 20:00 BiPAP 50 Venturi Mask 11/29/16 19:15 133 107/73 11/29/16 19:09 37.4 120 22 107/73 96 BiPAP 11/29/16 18:50 94 96 50 11/29/16 18:45 94 26 94 BiPAP/CPAP 50 11/29/16 16:27 127 11/29/16 16:00 BiPAP 50 Venturi Mask 11/29/16 15:21 36.5 124 22 125/68 98 BiPAP Physical Exam General Appearance: WD/WN, + mild distress (respiratory) Eyes: normal inspection, sclerae normal ENT: hearing grossly normal Neck: supple, trachea midline Respiratory/Chest: no accessory muscle use, + decreased breath sounds Cardiovascular: regular rate, rhythm Abdomen: normal bowel sounds, non tender Extremities: + pedal edema (mild b /l) Neurologic/Psychiatric: + disoriented (slightly- eye contact on and off) Skin: normal color, warm/dry, no rash Laboratory Results CHEST ONE VIEW PORTABLE CLINICAL HISTORY: Shortness of breath, respiratory distress COMPARISON STUDY: 11/28/2016 FINDINGS: The cardiac and mediastinal contours remain stable. The right-sided PICC catheter remains unchanged in position. There are small bilateral pleural effusions. There is associated bibasal airspace opacities. There are few scattered pulmonary nodules, statistically postinflammatory.[ IMPRESSION: Persistent bilateral pleural effusions with associated bibasal airspace opacities Last 24 Hours Test 11/29/16 15:41 11/29/16 16:23 11/29/16 20:15 11/29/16 21:51 Activated Partial Thromboplast Time 108.1 SECONDS 61.7 SECONDS Partial Thromboplastin Ratio 4.2 2.4 Bedside Glucose 163 mg/dl 182 mg/dl Test 11/30/16 05:20 11/30/16 06:57 11/30/16 11:16 White Blood Count 13.64 K/uL Red Blood Count 3.40 M/uL Hemoglobin 10.2 g/dL Hematocrit 33.0 % Mean Corpuscular Volume 97.1 fL Mean Corpuscular Hemoglobin 30.0 pg Mean Corpuscular Hemoglobin Concent 30.9 g/dl RDW Standard Deviation 48.2 fL RDW Coefficient of Variation 13.6 % Platelet Count 318 K/uL Mean Platelet Volume 10.3 fL Activated Partial Thromboplast Time 67.0 SECONDS Partial Thromboplastin Ratio 2.6 Bedside Glucose 179 mg/dl 232 mg/dl Assessment and Plan (1) Hyperglycemia Status: Acute (2) Chronic intermittent steroid use (3) KARINA (acute kidney injury) (4) COPD exacerbation Status: Acute (5) Acute respiratory failure Patient with SOB and productive cough with Achromobacter xylosoxidans and H. Flu growing in sputum culture. Patient is currently on IV Primaxin. Persistent bibasilar airspace opacities on CXR. Patient completed 5 days of therapy but recommend extending to 7 days. We will continue to follow. PROVIDER ADDENDUM: Pt reviewed with Ms. Estrada. Agree with above assessment.
--- NOTE | 2016-11-30 15:13 | Family Medicine Progress Note ---
Progress Note Date of Service Nov 30, 2016. Subjective Pt evaluation today including: conversation w/ patient, physical exam, chart review, lab review Voiding: ferguson catheter in place Patient was seen at the bedside. She was very drowsy and wouldn't answer to my question. She complains of SOB and chest pain. Per nurse she is more awake today then yesterday. Her IV Lasix will be stopped today. Per nurse she refused to work with PT/OT today. Respiratory: + cough, + shortness of breath Cardiovascular: + chest pain Abdomen: + GI bleeding, No pain Additional Comments: Couldn't obtain full ROS because patient was somnolent and wouldn't response back to my questions. Medications Current Inpatient Medications Medications (Trade) Dose Ordered Sig/Omkar Route Start Time Stop Time Status Last Admin Dose Admin Acetaminophen (Tylenol Tab) 650 mg Q4H PRN PO 11/21/16 15:45 12/21/16 15:44 11/30/16 10:34 650 MG Atorvastatin Calcium (Lipitor Tab) 40 mg DAILY PO 11/22/16 09:00 12/22/16 08:59 11/30/16 09:38 40 MG Montelukast Sodium (Singulair Tab) 10 mg QPM PO 11/21/16 21:00 12/21/16 20:59 11/29/16 20:26 10 MG Propranolol HCl (Inderal Tab) 80 mg BID PO 11/21/16 21:00 12/21/16 20:59 11/30/16 09:39 80 MG Roflumilast (Daliresp Tab) 500 mcg DAILY PO 11/22/16 09:00 12/22/16 08:59 11/30/16 09:38 500 MCG Senna (Senokot Tab) 8.6 mg QAM PO 11/22/16 09:00 12/22/16 08:59 11/30/16 09:38 8.6 MG Aspirin (Aspirin Chew) 81 mg DAILY PO 11/23/16 09:00 12/23/16 08:59 11/30/16 10:34 81 MG Heparin Sodium (Porcine) (Heparin 10 Unit/ ml 5 ml Flush) 5 ml PRN PRN FLUSH 11/25/16 04:15 12/25/16 04:14 Ondansetron HCl (Zofran Tab) 4 mg Q4H PRN PO 11/26/16 00:30 12/26/16 00:29 11/26/16 03:06 4 MG Insulin Aspart (novoLOG ASPART) SLIDING SCALE ACHS SC 11/26/16 08:00 12/26/16 07:59 11/30/16 12:43 3 UNITS Arformoterol Tartrate (Brovana 15MCG/ 2ML Neb Soln) 15 mcg BIDR INH 11/26/16 20:00 12/26/16 19:59 11/30/16 07:23 15 MCG Budesonide (Pulmicort Respules 0.5MG/ 2ML Neb Soln) 0.5 mg BIDR INH 11/26/16 20:00 12/26/16 19:59 11/30/16 07:23 0.5 MG Tiotropium [place] (Spiriva Handihaler Inhaler) 1 puff DAILY INH 11/27/16 09:00 12/27/16 08:59 11/30/16 10:35 1 PUFF Lisinopril (Zestril Tab) 5 mg DAILY PO 11/27/16 09:00 12/27/16 08:59 Future Hold 11/27/16 10:01 5 MG Triamterene/HCTZ 1 cap 1 cap DAILY PO 11/27/16 09:00 12/27/16 08:59 Future Hold 11/27/16 10:02 1 CAP Digoxin 125 mcg/ Syringe 10 ml @ 2 mls/min DAILY@16 IV 11/27/16 16:00 12/27/16 15:59 11/30/16 15:20 2 MLS/MIN Heparin Sodium/ Dextrose (Heparin 25,000 Unit/500ml D5W) 500 ml @ 30 mls/hr [id number] PRN IV 11/26/16 16:15 12/26/16 16:14 11/30/16 10:36 30 MLS/HR Enteral Nutritional Formula (Boost) 1 can BIDM PO 11/26/16 16:30 12/26/16 16:29 11/30/16 15:21 1 CAN Miscellaneous Information (Consult Glycemic Management Pharmacy) 1 ea UD PRN N/A 11/27/16 07:00 12/27/16 06:59 Ipratropium [place] (Atrovent 0.02% 0.5MG/2.5ML Neb) 0.5 mg Q6R INH 11/28/16 09:00 12/28/16 07:44 11/30/16 07:23 0.5 MG Levalbuterol 1.25 mg 1.25 mg Q6R INH 11/28/16 09:00 12/28/16 07:44 11/30/16 07:23 1.25 MG Diltiazem HCl 125 mg/Dextrose 125 ml @ 0 mls/hr Q0M PRN IV 11/28/16 08:45 12/28/16 08:44 Future Hold Amiodarone HCL/ Dextrose (Nexterone / D5w) 200 ml @ 16.7 mls/hr [id number] IV 11/28/16 15:30 12/28/16 15:29 11/30/16 08:10 16.7 MLS/HR Ipratropium [place] (Atrovent 0.02% 0.5MG/2.5ML [facility]) 0.5 mg Q2R PRN INH 11/28/16 09:15 12/28/16 09:14 11/28/16 10:55 0.5 MG Levalbuterol 1.25 mg 1.25 mg Q2R PRN INH 11/28/16 09:15 12/28/16 09:14 11/28/16 10:55 1.25 MG Methylprednisolone Sodium Succinate/ Syringe (Solu-Medrol IV/ Syringe) 0.64 ml @ 1.5 mls/min Q12H IV 11/29/16 04:00 12/29/16 03:59 11/30/16 15:21 1.5 MLS/MIN Metoprolol Tartrate 5 mg 5 mg Q4H PRN IV 11/28/16 19:45 12/28/16 19:44 11/30/16 08:11 5 MG Imipenem/ Cilastatin Sodium/ Dextrose (Primaxin Iv/D5 100ml) 110 ml @ 100 mls/hr Q8H IV 11/30/16 10:00 12/02/16 09:59 11/30/16 09:39 100 MLS/HR Imipenem/ Cilastatin Sodium (Consult) 1 ea UD PRN N/A 11/30/16 09:15 12/30/16 09:14 Acetaminophen/ Hydrocodone Bitart (Elizabeth 5/325 Tab) 1 tab Q4H PRN PO 11/30/16 12:30 12/14/16 12:29 11/30/16 12:42 1 TAB Objective Vital Signs Date Time Temp Pulse Resp B/P Pulse Ox O2 Delivery O2 Flow Rate FiO2 11/30/16 15:20 74 11/30/16 15:13 36.5 70 20 125/49 96 Nasal Cannula 4.0 Humidified Oxygen 11/30/16 12:00 BiPAP 50 Venturi Mask 11/30/16 11:50 36.7 72 25 121/40 97 Nasal Cannula 4.0 11/30/16 08:11 135 11/30/16 08:00 BiPAP 50 Venturi Mask 11/30/16 08:00 36.8 77 20 116/49 97 BiPAP 11/30/16 07:23 77 22 96 BiPAP/CPAP 50 11/30/16 04:00 96 BiPAP 4.0 50 11/30/16 03:51 37.0 76 24 114/47 96 BiPAP 11/30/16 01:42 111 98 50 11/30/16 01:36 133 111/61 11/30/16 01:30 111 22 98 BiPAP/CPAP 50 11/30/16 00:01 96 BiPAP 50 11/29/16 23:26 36.9 77 22 107/57 98 BiPAP 11/29/16 22:16 37.4 11/29/16 20:00 BiPAP 50 Venturi Mask 11/29/16 19:15 133 107/73 11/29/16 19:09 37.4 120 22 107/73 96 BiPAP 11/29/16 18:50 94 96 50 11/29/16 18:45 94 26 94 BiPAP/CPAP 50 Physical Exam General Appearance: WD/WN, + mild distress Neck: supple, trachea midline Respiratory/Chest: chest non-tender, normal breath sounds, no accessory muscle use, + respiratory distress Cardiovascular: regular rate, rhythm, no edema Abdomen: normal bowel sounds, non tender, soft Extremities: non-tender, no pedal edema Neurologic/Psychiatric: + pertinent finding (very drowsy) Skin: normal color, warm/dry, no rash Laboratory Results Results Past 24 Hours Test 11/29/16 20:15 11/29/16 21:51 11/30/16 05:20 11/30/16 06:57 Range/Units Bedside Glucose 182 179 70-90 mg/dl Activated Partial Thromboplast Time 61.7 67.0 21.0-31.0 SECONDS Partial Thromboplastin Ratio 2.4 2.6 White Blood Count 13.64 4.8-10.8 K/uL Red Blood Count 3.40 4.2-5.4 M/uL Hemoglobin 10.2 12.0-16.0 g/dL Hematocrit 33.0 37-47 % Mean Corpuscular Volume 97.1 80-100 fL Mean Corpuscular Hemoglobin 30.0 25-34 pg Mean Corpuscular Hemoglobin Concent 30.9 32-36 g/dl RDW Standard Deviation 48.2 36.4-46.3 fL RDW Coefficient of Variation 13.6 11.5-14.5 % Platelet Count 318 130-400 K/uL Mean Platelet Volume 10.3 7.4-10.4 fL Test 11/30/16 11:16 11/30/16 16:24 11/30/16 17:00 Range/Units Bedside Glucose 232 170 70-90 mg/dl Assessment and Plan This is a 76 y/o female with hx of COPD on home O2 @ 4L, falls, chronic LE edema and generalized weakness, p/w acute worsening of SOB with acute hypoxic respiratory failure prior to arrival with VBG showing CO2 of 47 requiring immediate intubation. Was successfully extubated on 11/25/16. Today patient was drowsy and wouldn't answer my questions. On tele this morning she was on Afib with heart rate in 120s. Later in the afternoon her heart was in 60s and 70s. * GI bleeding/Rectal bleeding - Stool occult blood is positive - H&H is 9.9 and 31.4. Trend H&H q6h and transfuse as needed - Hold Heparin for now - The etiology is unclear. ?could be 2/2 anticoagulant - Consult GI and will wait for the recommendation * Paroxysmal Atrial Fibrillation - Rate control with Amiodarone drip with plans to switch to PO once patient is more awake. - C/w IV digoxin - Metoprolol 5mg q4h prn - On heparin drip for anticoagulation - Cardiology on board. Recommended to continue with rhythm control. Will continue to appreciate their recommendations. * Acute on Chronic hypoxic Respiratory Failure - likely 2/2 COPD exacerbation in the setting of pneumonia based on CXR, which showed bibasilar consolidation. - Extubated 11/25 - Maintaining normal saturation with supplemental oxygen for longer period today. Continue Bipap - FiO2 50% at night. - ABG 11/29/16 significant for PCO2 78, PO2 53, and HCO3 47 - CXR 11/27 shows interval development of bibasilar parenchymal infiltrates combined with small left pleural effusion. * COPD exacerbation - C/w home inhalers: Spiriva, Brovana, Pulmicort, Daliresp, Singulair - C/w Atrovent 0.5mg and Xopenex 1.25 q6h scheduled and q2h prn - IV Solu-Medrol 40mg q12h in view of respiratory distress * Bibasilar consolidation - Sputum culture showed Achromobacter xylosoxidans and H. Flu - BCx (-) - Aspiration precautions as per Speech and swallow eval - Day # 5 imipenem/cilastatin, 7 days course per ID recommendation - Continue to appreciate ID recommendations * UTI - UCx was negative. - Day #5 imipenem/cilastatin, 7 days course * Pulmonary congestion in the setting of KARINA - KARINA mostly 2/2 diuresis. Cr is normal (1.0) - CXR 11/29/16 shows persistent bilateral pleural effusions with associated bibasal airspace opacities - Patient given IV Lasix 40 mg, will stop today - Continue to monitor BMP and hydration status and replace K+ as necessary * Chronic conditions: Hyperlipidemia: Continue Atorvastatin 40mg daily HTN: Continue Propranolol 80mg BID. Continue to hold Lisinopril and Triamtrene/HCTZ because of hypotension DM: Continue Lantus 10 units daily + sliding scale * DVT Prophylaxis - Hold heparin drip for GI bleed - SCD and TEDs * Code status - Full Code Dispo: PT/OT is ordered. Patient was seen by OT today but she refused to work. PT/OT will reassess her tomorrow. Resident Tracking Resident Involvement: Resident Care Provided Care Provided: Adult Hospital Medicine Reviewed: Pt Seen/Exam by Me History seen earlier in the day - resting comfortably in bed. had not come out of bed. later called by nursing for patient having bright red blood in stool Constitutional: denies: fever Respiratory: positive: short of breath (better) Cardiovascular: denies chest pain Gastrointestinal/Abdominal: negative: abdominal pain General Appearance: no apparent distress Respiratory: decreased breath sounds (bases), crackles (base) Cardiovascular: irregularly irregular Neurologic/Psychiatric: alert, oriented x 3 Skin Characteristics: warm/dry Assessment/Plan I have reviewed the medical record and performed a history and physical examination of this patient today. I have discussed the case with Dr. Hill. The above note reflects my findings, conclusions, and recommendations.
[2016-11-30] MEDS: DIGOXIN IV 125 MCG in SYRINGE 9.5 ML IV SCH (15:20)
[2016-11-30 17:53] LABS: HEMATOCRIT 31.4 % (37-47)
[2016-11-30] MEDS ORDERED: NURSING VERBAL MED ORDER ONE (18:00)
[2016-11-30] MEDS: MONTELUKAST SOD 10 MG TAB PO SCH (21:40)
[2016-11-30 23:25] LABS: HEMATOCRIT 31.6 % (37-47)
[2016-12-01] VITALS (20 sets, daily range): BP systolic 134–164; BP diastolic 47–68; PULSE 60–79; TEMP 36.4–37.1; O2SAT 90–98
[2016-12-01] MEDS: IMIPENEM/CILASTATIN IV 500 MG in DEXTROSE 5% 100ML 100 ML IV SCH ×3 (02:34→17:14)
[2016-12-01] MEDS: LEVALBUTEROL 1.25MG/0.5ML NEB INH SCH ×4 (02:39→19:13)
[2016-12-01] MEDS: IPRATROPIUM BROMIDE NEB SOLN 0.02% 2.5 ML VIAL INH SCH ×4 (02:39→19:13)
[2016-12-01] MEDS: METHYLPREDNISOLONE IV 40 MG in SYRINGE 0 ML IV SCH (04:57)
[2016-12-01 05:44] LABS: HEMATOCRIT 31.1 % (37-47); MEAN CELL VOLUME 94.8 fL (80-100); MEAN CORPUSCULAR HEMOGLOBIN 30.2 pg (25-34); MEAN CORPUSCULAR HGB CONC 31.8 g/dl (32-36); MEAN PLATELET VOLUME 9.4 fL (7.4-10.4); PLATELET COUNT 335 K/uL (130-400); RED BLOOD COUNT 3.28 M/uL (4.2-5.4); WHITE BLOOD COUNT 12.26 K/uL (4.8-10.8)
[2016-12-01 05:57] LABS: PARTIAL THROMBOPLASTIN RATIO 0.8
[2016-12-01 06:31] LABS: BUN/CREATININE RATIO 75.4 (10-20); CALCIUM 9.5 mg/dl (8.5-10.1); POTASSIUM 3.5 mmol/L (3.5-5.1)
[2016-12-01] MEDS: BUDESONIDE 0.5 MG/2 ML VIAL (PULMICORT) INH SCH ×2 (07:01→19:13)
[2016-12-01] MEDS: ARFORMOTEROL TART 15MCG/2ML VIAL INH SCH ×2 (07:01→19:13)
[2016-12-01] MEDS: AMIODARONE / D5W 200 ML IV SCH ×2 (07:35→19:12)
[2016-12-01] MEDS: INSULIN ASPART 100 UNITS/ML 3 ML PEN SC SCH ×4 (07:39→20:50)
[2016-12-01] MEDS: SENNA 8.6 MG TAB PO SCH (07:43)
[2016-12-01] MEDS: TIOTROPIUM BROMIDE 5 PUFF/90 MCG INH INH SCH (07:43)
[2016-12-01] MEDS: PROPRANOLOL HCL 80 MG TAB PO SCH ×2 (07:43→20:49)
[2016-12-01] MEDS: ATORVASTATIN 40 MG TAB PO SCH (07:43)
[2016-12-01] MEDS: ROFLUMILAST 500 MCG TAB PO SCH (07:44)
[2016-12-01] MEDS: BOOST VANILLA PO SCH ×4 (07:44→16:45)
[2016-12-01] MEDS: ASPIRIN 81 MG CHEW PO SCH (08:02)
--- NOTE | 2016-12-01 10:30 | Gastrointestinal Consultation ---
Gastrointestinal Consultation Date of Consultation: Dec 01, 2016 Attending Physician: Sr. Rivero Consulting Physician: Dr. Allan/GUY Zapata Reason for Consultation: GIB History of Present Illness Patient is a 76 year old female with a history of COPD admitted with progressive SOB and cough as well as hypoxic respiratory failure requiring intubation (now extubated) as well as atrial fibrillation with RVR. She has had follow up CXR imaging demonstrated persistent bibasilar consolidation and ID has been managing her antibiotic treatment for the Achromobacter xylosoxidans and H. Flu. In regard to the atrial fibrillation, she has been placed on a Heparin drip which has recently been stopped in light of reported GIB. The patient denies any known rectal bleeding or melanotic stools. She further denies any nausea or vomiting or abdominal pain. She does report continued difficulty with breathing. Her admitting H&H was noted to be 11.9 and 40.7. Her H&H has gone up and down but over the past few days has remained approximately 10/31. This morning her H&H was 9.9 and 31.1. She is not on any PPI therapy at this point. Heme testing has been ordered and is pending. Past Medical/Surgical History Medical Problems: (1) Altered mental status Status: Acute (2) COPD exacerbation Status: Acute (3) Hyperkalemia Status: Acute (4) Hypoxia Status: Acute (5) Pneumonia Status: Acute (6) Respiratory acidosis Status: Acute Past Medical History: 1. Hypertension 2. Chronic respiratory failure 3. COPD 4. Atrial fibrillation 5. UTI 6. DM 7. Hyperlipemia Past Surgical History: None reported Family History FH: heart disease Negative for GI malignancy or IBD Social History Smoking Status: Current Every Day Smoker Alcohol Use: none Marital Status: Housing Status: lives with significant other Occupation Status: retired Allergies Coded Allergies: Penicillins (Verified Allergy, Intermediate, HIVES, 08/16/14) Tetracycline (Verified Allergy, Mild, RASH, 08/16/14) Doxycycline (Verified Allergy, Unknown, RASH, 08/16/14) Sulfamethoxazole (Verified Allergy, Unknown, 08/16/14) Replaces SULFAMETHOXAZ Trimethoprim (Verified Allergy, Unknown, 08/16/14) Replaces SULFAMETHOXAZ Cephalosporins (Verified Adverse Reaction, Mild, CEPHALEXIN--GI, 11/22/16) Current Medications Home Meds and Scripts Medications Dose Route/Sig Max Daily Dose Days Date Category Dose Instructions Multivitamin (Multivitamins) Tab 1 Tab PO DAILY 11/21/16 Reported Triamterene/Hctz 37.5-25MG (Triamterene/HCTZ) 1 Tab Tab 1 Tab PO BID 11/21/16 Reported Prednisone 10 Mg Tab 10 Mg PO DIRECTED 11/21/16 Reported TAKE 1 TABLET DAILY WITH FOOD FOR CHRONIC BRONCHITIS, EXACERBATION TAKE 4 TABLETS DAILY FOR 10 DAYS THEN DECREASE TO 2 TABLETS DAILY FOR 10 DAYS Montelukast Sodium 10 Mg Tab 10 Mg PO QPM 11/21/16 Reported Zestril (Lisinopril) 5 Mg Tab 5 Mg PO DAILY 11/21/16 Reported Levaquin (Levofloxacin) 500 Mg Tab 500 Mg PO DIRECTED 11/21/16 Reported USE PRN WHEN CHEST FEELS TIGHT Duoneb (Ipratropium-Albuterol) 3 Ml Nebu 1 Vial NEB Q4H PRN 11/21/16 Reported Reny Allergy (Fexofenadine Hcl) 180 Mg Tab 180 Mg PO BID 11/21/16 Reported Kp Ferrous Sulfate (Ferrous Sulfate) 325 Mg Tab 325 Mg PO DAILY 11/21/16 Reported Daliresp (Roflumilast) 500 Mcg Tab 500 Mcg PO DAILY 11/21/16 Reported Brovana (Arformoterol Tartrate) 15 Mcg/2 Ml Neb 1 Vial NEB BID 11/21/16 Reported Ipratropium [place] (Ipratropium Derby (Nasal)) 0.03 % Spr 4 Puff INH Q4H PRN 11/21/16 Reported Senna Lax (Senna) 8.6 Mg Tab 8.6 Mg PO QAM 30 08/19/14 Rx Spiriva Handihaler (Tiotropium [place]) 30 Puff/540 Mcg Aerp 2 Puffs INH DAILY 08/16/14 Reported Lipitor (Atorvastatin Calcium) 40 Mg Tab 40 Mg PO DAILY 08/16/14 Reported Oxygen Gas 4 Liters NA UD 06/10/12 Reported 4 LITERS TWICE DAILY Pulmicort Respules 0.5MG/2ML (Budesonide) 0.5 Mg/2 Ml Nebu 2 Ml INH Q12HR 06/10/12 Reported Mucinex Ext Rel (Guaifenesin) 600 Mg Tab 600-1,200 Mg PO BID PRN 06/10/12 Reported Ecotrin Or Generic (Aspirin) 81 Mg Tab 81 Mg PO DAILY 06/10/12 Reported Inderal (Propranolol HCl) 80 Mg Tab 80 Mg PO BID 07/15/10 Reported Review of Systems Constitutional: + fatigue, + weakness, No chills, No fever Eyes: No problem reported ENT: No problem reported Respiratory: + see HPI Cardiac: No chest pain, No palpitations Abdomen: + see HPI Musculoskeletal: No problem reported Female : No problem reported Psych: No problem reported Skin: No problem reported Physical Exam Date Time Temp Pulse Resp B/P Pulse Ox O2 Delivery O2 Flow Rate FiO2 12/01/16 08:00 96 BiPAP 15.0 50 12/01/16 07:47 36.4 74 28 164/68 90 Nasal Cannula 4.0 12/01/16 07:09 79 95 50 12/01/16 07:02 74 30 90 BiPAP/CPAP 12/01/16 06:25 78 94 50 12/01/16 04:00 96 BiPAP 50 12/01/16 04:00 36.4 67 24 140/57 98 BiPAP 12/01/16 02:10 78 94 50 12/01/16 01:30 60 26 95 Nasal Cannula 4.0 12/01/16 00:01 96 BiPAP 50 11/30/16 23:26 36.6 67 22 136/60 96 BiPAP 50 11/30/16 22:21 81 94 50 11/30/16 20:00 Nasal Cannula 4.0 Humidified Oxygen 11/30/16 19:28 36.6 75 20 135/48 98 Nasal Cannula 4.0 Humidified Oxygen 11/30/16 19:27 62 26 96 Nasal Cannula 4.0 11/30/16 16:00 96 Nasal Cannula 4.0 50 Humidified Oxygen 11/30/16 15:20 74 11/30/16 15:13 36.5 70 20 125/49 96 Nasal Cannula 4.0 Humidified Oxygen 11/30/16 14:20 62 26 96 Nasal Cannula 4.0 11/30/16 12:00 BiPAP 50 Venturi Mask 11/30/16 11:50 36.7 72 25 121/40 97 Nasal Cannula 4.0 General Appearance: + mild distress ENT: hearing grossly normal Neck: supple Respiratory/Chest: + respiratory distress, + rales Cardiovascular: + irregularly irregular Abdomen: normal bowel sounds, non tender, soft Extremities: no pedal edema Neurologic/Psych: alert, normal mood/affect Skin: warm/dry Laboratory Results Last 24 Hours Test 11/30/16 11:16 11/30/16 16:24 11/30/16 17:00 11/30/16 17:30 Bedside Glucose 232 mg/dl 170 mg/dl Stool Occult Blood POSITIVE Hemoglobin 9.9 g/dL Hematocrit 31.4 % Test 11/30/16 20:29 11/30/16 23:15 12/01/16 05:09 12/01/16 06:48 Bedside Glucose 195 mg/dl 129 mg/dl Hemoglobin 10.0 g/dL 9.9 g/dL Hematocrit 31.6 % 31.1 % White Blood Count 12.26 K/uL Red Blood Count 3.28 M/uL Mean Corpuscular Volume 94.8 fL Mean Corpuscular Hemoglobin 30.2 pg Mean Corpuscular Hemoglobin Concent 31.8 g/dl RDW Standard Deviation 46.4 fL RDW Coefficient of Variation 13.3 % Platelet Count 335 K/uL Mean Platelet Volume 9.4 fL Activated Partial Thromboplast Time 21.2 SECONDS Partial Thromboplastin Ratio 0.8 Sodium Level 140 mmol/L Potassium Level 3.5 mmol/L Chloride Level 90 mmol/L Carbon Dioxide Level 47 mmol/L Anion Gap 3.0 mmol/L Blood Urea Nitrogen 75 mg/dl Creatinine 1.00 mg/dl Est Creatinine Clear Calc Drug Dose 47.2 ml/min Estimated GFR () 62.9 Estimated GFR (Non- 54.3 BUN/Creatinine Ratio 75.4 Random Glucose 138 mg/dl Calcium Level 9.5 mg/dl Impression Patient is a 76 year old female with a history of COPD and chronic respiratory failure admitted with acute respiratory failure in the setting of persistent bibasilar consolidation as well as AFib with RVR on Heparin drip (now stopped) with reported GIB and slight drop in H&H over the course of her hospital stay. Plan 1. Recommend initiation of PPI therapy of Protonix 40 mg IV BID. 2. In light of her other medical co-morbidities, she is not currently a candidate for any invasive GI work up due to risks with anesthesia. 3. Monitor H&H and for significant GIB. 4. We will continue to follow her clinical course and advise further as appropriate. Thank you for allowing us to participate in the care of this patient. If you have any questions or concerns, please do not hesitate to contact us. Agree with GUY Zapata as above Abd: Soft, NT, ND, +BS Continue BID PPI No plans for invasive workup at this time.
--- NOTE | 2016-12-01 11:05 | Infectious Disease Progress Nt ---
Progress Note Date of Service Dec 01, 2016. Subjective Pt evaluation today including: conversation w/ patient, physical exam, chart review, lab review, review of studies, review of inpatient medication list WBC count today was 12.26. Patient is currently on BiPap. Her Bicarb level was elevated further to 47 today. Creatinine is still stable. She is on day 6/7 of IV Imipenem. No new micro. No new imaging studies. She has been afebrile. Heart rate is well controlled at 67 on monitor. Patient states that her breathing is labored and she does not feel that BiPap is helping that. All Other Systems: Reviewed and Negative Medications Current Inpatient Medications Medications (Trade) Dose Ordered Sig/Omkar Route Start Time Stop Time Status Last Admin Dose Admin Acetaminophen (Tylenol Tab) 650 mg Q4H PRN PO 11/21/16 15:45 12/21/16 15:44 11/30/16 10:34 650 MG Atorvastatin Calcium (Lipitor Tab) 40 mg DAILY PO 11/22/16 09:00 12/22/16 08:59 12/01/16 07:43 40 MG Montelukast Sodium (Singulair Tab) 10 mg QPM PO 11/21/16 21:00 12/21/16 20:59 11/30/16 21:40 10 MG Propranolol HCl (Inderal Tab) 80 mg BID PO 11/21/16 21:00 12/21/16 20:59 12/01/16 07:43 80 MG Roflumilast (Daliresp Tab) 500 mcg DAILY PO 11/22/16 09:00 12/22/16 08:59 12/01/16 07:44 500 MCG Senna (Senokot Tab) 8.6 mg QAM PO 11/22/16 09:00 12/22/16 08:59 12/01/16 07:43 8.6 MG Aspirin (Aspirin Chew) 81 mg DAILY PO 11/23/16 09:00 12/23/16 08:59 11/30/16 10:34 81 MG Heparin Sodium (Porcine) (Heparin 10 Unit/ ml 5 ml Flush) 5 ml PRN PRN FLUSH 11/25/16 04:15 12/25/16 04:14 Ondansetron HCl (Zofran Tab) 4 mg Q4H PRN PO 11/26/16 00:30 12/26/16 00:29 11/26/16 03:06 4 MG Insulin Aspart (novoLOG ASPART) SLIDING SCALE ACHS SC 11/26/16 08:00 12/26/16 07:59 12/01/16 07:39 2 UNITS Arformoterol Tartrate (Brovana 15MCG/ 2ML Neb Soln) 15 mcg BIDR INH 11/26/16 20:00 12/26/16 19:59 12/01/16 07:01 15 MCG Budesonide (Pulmicort Respules 0.5MG/ 2ML Neb Soln) 0.5 mg BIDR INH 11/26/16 20:00 12/26/16 19:59 12/01/16 07:01 0.5 MG Tiotropium [place] (Spiriva Handihaler Inhaler) 1 puff DAILY INH 11/27/16 09:00 12/27/16 08:59 12/01/16 07:43 1 PUFF Lisinopril (Zestril Tab) 5 mg DAILY PO 11/27/16 09:00 12/27/16 08:59 Future Hold 11/27/16 10:01 5 MG Triamterene/HCTZ 1 cap 1 cap DAILY PO 11/27/16 09:00 12/27/16 08:59 Future Hold 11/27/16 10:02 1 CAP Digoxin 125 mcg/ Syringe 10 ml @ 2 mls/min DAILY@16 IV 11/27/16 16:00 12/27/16 15:59 11/30/16 15:20 2 MLS/MIN Heparin Sodium/ Dextrose (Heparin 25,000 Unit/500ml D5W) 500 ml @ 30 mls/hr [id number] PRN IV 11/26/16 16:15 12/26/16 16:14 Future Hold 11/30/16 10:36 30 MLS/HR Enteral Nutritional Formula (Boost) 1 can BIDM PO 11/26/16 16:30 12/26/16 16:29 12/01/16 07:44 1 CAN Miscellaneous Information (Consult Glycemic Management Pharmacy) 1 ea UD PRN N/A 11/27/16 07:00 12/27/16 06:59 Ipratropium [place] (Atrovent 0.02% 0.5MG/2.5ML Neb) 0.5 mg Q6R INH 11/28/16 09:00 12/28/16 07:44 12/01/16 02:39 0.5 MG Levalbuterol 1.25 mg 1.25 mg Q6R INH 11/28/16 09:00 12/28/16 07:44 12/01/16 02:39 1.25 MG Diltiazem HCl 125 mg/Dextrose 125 ml @ 0 mls/hr Q0M PRN IV 11/28/16 08:45 12/28/16 08:44 Future Hold Amiodarone HCL/ Dextrose (Nexterone / D5w) 200 ml @ 16.7 mls/hr [id number] IV 11/28/16 15:30 12/28/16 15:29 12/01/16 07:35 16.7 MLS/HR Ipratropium [place] (Atrovent 0.02% 0.5MG/2.5ML Neb) 0.5 mg Q2R PRN INH 11/28/16 09:15 12/28/16 09:14 11/28/16 10:55 0.5 MG Levalbuterol (Xopenex 1.25MG/ 0.5ML Neb) 1.25 mg Q2R PRN INH 11/28/16 09:15 12/28/16 09:14 11/28/16 10:55 1.25 MG Metoprolol Tartrate 5 mg 5 mg Q4H PRN IV 11/28/16 19:45 12/28/16 19:44 11/30/16 08:11 5 MG Imipenem/ Cilastatin Sodium/ Dextrose (Primaxin Iv/D5 100ml) 110 ml @ 100 mls/hr Q8H IV 11/30/16 10:00 12/02/16 09:59 12/01/16 10:33 100 MLS/HR Imipenem/ Cilastatin Sodium (Consult) 1 ea UD PRN N/A 11/30/16 09:15 12/30/16 09:14 Acetaminophen/ Hydrocodone Bitart 1 tab 1 tab Q4H PRN PO 11/30/16 12:30 12/14/16 12:29 11/30/16 21:46 1 TAB Methylprednisolone Sodium Succinate 40 mg/Syringe 0.64 ml @ 1.5 mls/min Q24H IV 12/02/16 06:00 01/01/17 05:59 Pantoprazole Sodium/Syringe (Protonix Inj/ Syringe) 10 ml @ 5 mls/min BID@0900,2100 IV 12/01/16 21:00 12/31/16 20:59 Objective Vital Signs Date Time Temp Pulse Resp B/P Pulse Ox O2 Delivery O2 Flow Rate FiO2 12/01/16 10:29 134/60 12/01/16 08:00 96 BiPAP 15.0 50 12/01/16 07:47 36.4 74 28 164/68 90 Nasal Cannula 4.0 12/01/16 07:09 79 95 50 12/01/16 07:02 74 30 90 BiPAP/CPAP 12/01/16 06:25 78 94 50 12/01/16 04:00 96 BiPAP 50 12/01/16 04:00 36.4 67 24 140/57 98 BiPAP 12/01/16 02:10 78 94 50 12/01/16 01:30 60 26 95 Nasal Cannula 4.0 12/01/16 00:01 96 BiPAP 50 11/30/16 23:26 36.6 67 22 136/60 96 BiPAP 50 11/30/16 22:21 81 94 50 11/30/16 20:00 Nasal Cannula 4.0 Humidified Oxygen 11/30/16 19:28 36.6 75 20 135/48 98 Nasal Cannula 4.0 Humidified Oxygen 11/30/16 19:27 62 26 96 Nasal Cannula 4.0 11/30/16 16:00 96 Nasal Cannula 4.0 50 Humidified Oxygen 11/30/16 15:20 74 11/30/16 15:13 36.5 70 20 125/49 96 Nasal Cannula 4.0 Humidified Oxygen 11/30/16 14:20 62 26 96 Nasal Cannula 4.0 11/30/16 12:00 BiPAP 50 Venturi Mask 11/30/16 11:50 36.7 72 25 121/40 97 Nasal Cannula 4.0 Physical Exam General Appearance: WD/WN, + mild distress (BiPap in place- slight respiratory distress) Eyes: normal inspection, sclerae normal ENT: hearing grossly normal Neck: supple Respiratory/Chest: no accessory muscle use, + pertinent finding (mild coarse breath sounds throughout. BiPap in place) Cardiovascular: regular rate, rhythm Abdomen: normal bowel sounds, non tender Neurologic/Psychiatric: alert Skin: normal color, warm/dry, no rash Laboratory Results Last 24 Hours Test 11/30/16 11:16 11/30/16 16:24 11/30/16 17:00 11/30/16 17:30 Bedside Glucose 232 mg/dl 170 mg/dl Stool Occult Blood POSITIVE Hemoglobin 9.9 g/dL Hematocrit 31.4 % Test 11/30/16 20:29 11/30/16 23:15 12/01/16 05:09 12/01/16 06:48 Bedside Glucose 195 mg/dl 129 mg/dl Hemoglobin 10.0 g/dL 9.9 g/dL Hematocrit 31.6 % 31.1 % White Blood Count 12.26 K/uL Red Blood Count 3.28 M/uL Mean Corpuscular Volume 94.8 fL Mean Corpuscular Hemoglobin 30.2 pg Mean Corpuscular Hemoglobin Concent 31.8 g/dl RDW Standard Deviation 46.4 fL RDW Coefficient of Variation 13.3 % Platelet Count 335 K/uL Mean Platelet Volume 9.4 fL Activated Partial Thromboplast Time 21.2 SECONDS Partial Thromboplastin Ratio 0.8 Sodium Level 140 mmol/L Potassium Level 3.5 mmol/L Chloride Level 90 mmol/L Carbon Dioxide Level 47 mmol/L Anion Gap 3.0 mmol/L Blood Urea Nitrogen 75 mg/dl Creatinine 1.00 mg/dl Est Creatinine Clear Calc Drug Dose 47.2 ml/min Estimated GFR () 62.9 Estimated GFR (Non- 54.3 BUN/Creatinine Ratio 75.4 Random Glucose 138 mg/dl Calcium Level 9.5 mg/dl Assessment and Plan (1) Hyperglycemia Status: Acute (2) Chronic intermittent steroid use (3) KARINA (acute kidney injury) (4) COPD exacerbation Status: Acute (5) Acute respiratory failure Patient with SOB and productive cough with Achromobacter xylosoxidans and H. Flu growing in sputum culture. Patient is currently on IV Primaxin. Persistent bibasilar airspace opacities on CXR. Patient to complete 7 days of therapy then D/C. We will continue to follow. PROVIDER ADDENDUM: Pt. reviewed with Ms. Estrada. Agree with above assessment.
[2016-12-01 11:52] LABS: HEMATOCRIT 31.8 % (37-47)
--- NOTE | 2016-12-01 14:48 | Pharmacy Progress Note ---
Glycemic: Assessment & Plan Date of Service Dec 01, 2016. Assessment & Plan The patient is currently receiving 3-7 units of insulin per day. BSGs ranging 127 - 232 mg/dl over the past 24hrs. * Basal insulin: N/A none needed now that steroids tapered * Correctional Insulin: Novolog Correction per scale ACHS Goal Range: Low 120 mg/dL - High 160 mg/dL Correction Factor: 30 mg/dL/unit * Prandial insulin: Per carb ratio of 1 unit per 12 grams CHO consumed BSGs continue to improve, no changes needed to inpatient regimen at this time. Pharmacy will continue to monitor patient daily and write orders per [facility] inpatient glycemic control protocol. Thanks. * Please note that the plan above was derived based on current level of insulin resistance and hospital stress. These recommendations are appropriate for inpatient admission only. Plan of care upon discharge will need to be reassessed to avoid potential outpatient hypo/hyperglycemia.
--- NOTE | 2016-12-01 16:34 | Cardiology Follow-Up ---
Subjective Date of Service: Dec 01, 2016. Pt evaluation today including: conversation w/ patient, physical exam, lab review, review of studies, review of inpatient medication list History of Present Illness This is a 76-year-old woman who has a history of severe COPD (with a long smoking history) as well as diabetes mellitus, hypertension, hypercholesterolemia and anemia. She was admitted with respiratory failure and required intubation, she has now improved and has been extubated. This morning at around 8:00 she went into atrial fibrillation with a rapid heart rate, she was given a 15 mg bolus of diltiazem and she remains in atrial fibrillation with a somewhat rapid heart rate. She denies palpitations. From the cardiovascular standpoint as far as I know she has never had coronary artery disease identified, she has however evidently had atrial fibrillation in the past. Although I cannot find any direct mention of it in the office records she reports having it for many years and "doctoring" for it. By that she tells me that she was on Inderal for her atrial fibrillation, and she tells me she was on aspirin but denies ever being offered an anticoagulant. I can't tell from her history where or when the arrhythmia was diagnosed or how often she had it or its nature (brief or persistent episodes) and although she does say that at time she will have an irregular heart rate that might last days at a time. She had remained in atrial fibrillation therefore I started her on intravenous diltiazem for rate control, which worked fairly well after she received several doses of digoxin. I also started intravenous heparin. She remained unaware of the arrhythmia. She had recurrent atrial fibrillation and we started intravenous amiodarone. After several days she had good control of her arrhythmia, she remained on intravenous heparin however had a drop in hemoglobin and that was discontinued. Social History Smoking Status: Current Every Day Smoker Review of Systems Respiratory: No shortness of breath Cardiac: No chest pain, No palpitations Medications Cardiovascular: Item Value Date Time Metoprolol 5 mg 11/28/16 1945 Tartrate Q4H PRN/IV 11/30/16 0811 (Lopressor Iv) Amiodarone HCL/ 200 ml @ 16.7 mls/hr 11/28/16 1530 Dextrose .[id number] 12/01/16 0735 Digoxin 125 mcg/ 10 ml @ 2 mls/min 11/27/16 1600 Syringe DAILY@16/IV 11/30/16 1520 Objective Vital Signs Past 12 Hours Date Time Temp Pulse Resp B/P Pulse Ox O2 Delivery O2 Flow Rate FiO2 12/01/16 15:20 37.0 69 27 141/55 93 Nasal Cannula 4.0 12/01/16 14:20 69 27 95 BiPAP/CPAP 12/01/16 12:05 36.8 67 20 147/57 98 12/01/16 12:00 96 BiPAP 15.0 50 12/01/16 11:15 66 97 50 12/01/16 10:29 134/60 12/01/16 08:00 96 BiPAP 15.0 50 12/01/16 07:47 36.4 74 28 164/68 90 Nasal Cannula 4.0 12/01/16 07:09 79 95 50 12/01/16 07:02 74 30 90 BiPAP/CPAP 12/01/16 06:25 78 94 50 Last Recorded Weight-Kilograms: 76.500 Intake & Output 8-Hour Column 11/30/16 11/30/16 12/01/16 15:59 23:59 07:59 Intake Total 820 ml 349 ml 232 ml Output Total 450 ml 550 ml 450 ml Balance 370 ml -201 ml -218 ml 24-Hour Column 12/01/16 07:59 Intake Total 1401 ml Output Total 1450 ml Balance -49 ml Physical Exam Constitutional: Level of Distress: NAD Lungs: Respiratory effort: good air movement Auscultation: decreased breath sounds Cardiovascular: Heart Auscultation: RRR, no murmurs, no rubs, no gallops Peripheral Pulses: Bruits: none appreciated Extremities: no edema Data Laboratory Results: Last 24 Hours Test 11/30/16 17:00 11/30/16 17:30 11/30/16 20:29 11/30/16 23:15 Stool Occult Blood POSITIVE Hemoglobin 9.9 g/dL 10.0 g/dL Hematocrit 31.4 % 31.6 % Bedside Glucose 195 mg/dl Test 12/01/16 05:09 12/01/16 06:48 12/01/16 11:25 12/01/16 11:29 White Blood Count 12.26 K/uL Red Blood Count 3.28 M/uL Hemoglobin 9.9 g/dL 10.3 g/dL Hematocrit 31.1 % 31.8 % Mean Corpuscular Volume 94.8 fL Mean Corpuscular Hemoglobin 30.2 pg Mean Corpuscular Hemoglobin Concent 31.8 g/dl RDW Standard Deviation 46.4 fL RDW Coefficient of Variation 13.3 % Platelet Count 335 K/uL Mean Platelet Volume 9.4 fL Activated Partial Thromboplast Time 21.2 SECONDS Partial Thromboplastin Ratio 0.8 Sodium Level 140 mmol/L Potassium Level 3.5 mmol/L Chloride Level 90 mmol/L Carbon Dioxide Level 47 mmol/L Anion Gap 3.0 mmol/L Blood Urea Nitrogen 75 mg/dl Creatinine 1.00 mg/dl Est Creatinine Clear Calc Drug Dose 47.2 ml/min Estimated GFR () 62.9 Estimated GFR (Non- 54.3 BUN/Creatinine Ratio 75.4 Random Glucose 138 mg/dl Calcium Level 9.5 mg/dl Bedside Glucose 129 mg/dl 127 mg/dl Test 12/01/16 16:19 Bedside Glucose 182 mg/dl Telemetry reviewed: Sinus rhythm, no atrial fibrillation for more than 24 hours. Assessment and Plan #1. Atrial fibrillation: Her and her are certainly familiar with the term atrial fibrillation and tell me that she had it diagnosed many years ago. I can't find specifics about it, but she has never been offered an anticoagulant but she was on Inderal presumably for the arrhythmia. She probably has paroxysmal atrial fibrillation based on this but I can't be sure. Her heart rate was fairly well controlled on diltiazem and digoxin, although her blood pressure was borderline. Amiodarone appeared to convert the rhythm ( or at least the arrhythmia converted to sinus rhythm on amiodarone intravenously ) but she continued to have atrial fibrillation for several days. However more recently (more than 24 hours) she has had no further atrial fibrillation and remains on amiodarone. At this point I would like to continue it, but I'm going to switch her to oral. I'm going to overlap tonight and discontinue the intravenous amiodarone in the morning. She is on digoxin as well for rate control, her last level was 1.7 and amiodarone does raise digoxin levels. I'm going to repeat the level tomorrow but we may have to reduce the dose. #2. Anticoagulation: At the moment we don't need anticoagulation since she is in sinus rhythm, over the long run from the cardiovascular standpoint it would be better for her to be on an anticoagulant but it may be too risky. We do not need to make that determination at this time. Thank you for allowing me to participate in her care.
[2016-12-01] MEDS: DIGOXIN IV 125 MCG in SYRINGE 9.5 ML IV SCH (16:58)
[2016-12-01 17:04] LABS: HEMATOCRIT 30.9 % (37-47)
--- NOTE | 2016-12-01 18:54 | Family Medicine Progress Note ---
Progress Note Date of Service Dec 01, 2016. Subjective Pt evaluation today including: conversation w/ patient, physical exam, lab review, review of studies, conversation w/ technology methodology consultant Voiding: ferguson catheter in place Patient was seen at the bedside. She was more awake today and answered my question. Continues to complain of SOB but denies any chest pain. Per nurse she had one BM today and it "usama" in color. Constitutional: No fever Respiratory: + cough, + shortness of breath Cardiovascular: No chest pain, No edema Abdomen: + GI bleeding, No diarrhea, No nausea, No pain, No vomiting Musculoskeletal: No muscle pain Skin: No rash Medications Current Inpatient Medications Medications (Trade) Dose Ordered Sig/Omkar Route Start Time Stop Time Status Last Admin Dose Admin Acetaminophen (Tylenol Tab) 650 mg Q4H PRN PO 11/21/16 15:45 12/21/16 15:44 11/30/16 10:34 650 MG Atorvastatin Calcium (Lipitor Tab) 40 mg DAILY PO 11/22/16 09:00 12/22/16 08:59 12/01/16 07:43 40 MG Montelukast Sodium (Singulair Tab) 10 mg QPM PO 11/21/16 21:00 12/21/16 20:59 11/30/16 21:40 10 MG Propranolol HCl (Inderal Tab) 80 mg BID PO 11/21/16 21:00 12/21/16 20:59 12/01/16 07:43 80 MG Roflumilast (Daliresp Tab) 500 mcg DAILY PO 11/22/16 09:00 12/22/16 08:59 12/01/16 07:44 500 MCG Senna (Senokot Tab) 8.6 mg QAM PO 11/22/16 09:00 12/22/16 08:59 12/01/16 07:43 8.6 MG Aspirin (Aspirin Chew) 81 mg DAILY PO 11/23/16 09:00 12/23/16 08:59 11/30/16 10:34 81 MG Heparin Sodium (Porcine) (Heparin 10 Unit/ ml 5 ml Flush) 5 ml PRN PRN FLUSH 11/25/16 04:15 12/25/16 04:14 Ondansetron HCl (Zofran Tab) 4 mg Q4H PRN PO 11/26/16 00:30 12/26/16 00:29 11/26/16 03:06 4 MG Insulin Aspart (novoLOG ASPART) SLIDING SCALE ACHS SC 11/26/16 08:00 12/26/16 07:59 12/01/16 16:45 6 UNITS Arformoterol Tartrate (Brovana 15MCG/ 2ML Neb Soln) 15 mcg BIDR INH 11/26/16 20:00 12/26/16 19:59 12/01/16 07:01 15 MCG Budesonide (Pulmicort Respules 0.5MG/ 2ML Neb Soln) 0.5 mg BIDR INH 11/26/16 20:00 12/26/16 19:59 12/01/16 07:01 0.5 MG Tiotropium Gem (Spiriva Handihaler Inhaler) 1 puff DAILY INH 11/27/16 09:00 12/27/16 08:59 12/01/16 07:43 1 PUFF Lisinopril (Zestril Tab) 5 mg DAILY PO 11/27/16 09:00 12/27/16 08:59 Future Hold 11/27/16 10:01 5 MG Triamterene/HCTZ 1 cap 1 cap DAILY PO 11/27/16 09:00 12/27/16 08:59 Future Hold 11/27/16 10:02 1 CAP Digoxin 125 mcg/ Syringe 10 ml @ 2 mls/min DAILY@16 IV 11/27/16 16:00 12/27/16 15:59 12/01/16 16:58 2 MLS/MIN Heparin Sodium/ Dextrose (Heparin 25,000 Unit/500ml D5W) 500 ml @ 30 mls/hr [id number] PRN IV 11/26/16 16:15 12/26/16 16:14 Future Hold 11/30/16 10:36 30 MLS/HR Enteral Nutritional Formula (Boost) 1 can BIDM PO 11/26/16 16:30 12/26/16 16:29 12/01/16 07:44 1 CAN Miscellaneous Information (Consult Glycemic Management Pharmacy) 1 ea UD PRN N/A 11/27/16 07:00 12/27/16 06:59 Ipratropium Gem (Atrovent 0.02% 0.5MG/2.5ML Neb) 0.5 mg Q6R INH 11/28/16 09:00 12/28/16 07:44 12/01/16 14:20 0.5 MG Levalbuterol 1.25 mg 1.25 mg Q6R INH 11/28/16 09:00 12/28/16 07:44 12/01/16 14:20 1.25 MG Diltiazem HCl 125 mg/Dextrose 125 ml @ 0 mls/hr Q0M PRN IV 11/28/16 08:45 12/28/16 08:44 Future Hold Amiodarone HCL/ Dextrose (Nexterone / D5w) 200 ml @ 16.7 mls/hr [id number] IV 11/28/16 15:30 12/02/16 08:00 12/01/16 07:35 16.7 MLS/HR Ipratropium [place] (Atrovent 0.02% 0.5MG/2.5ML Neb) 0.5 mg Q2R PRN INH 11/28/16 09:15 12/28/16 09:14 11/28/16 10:55 0.5 MG Levalbuterol (Xopenex 1.25MG/ 0.5ML Neb) 1.25 mg Q2R PRN INH 11/28/16 09:15 12/28/16 09:14 11/28/16 10:55 1.25 MG Metoprolol Tartrate 5 mg 5 mg Q4H PRN IV 11/28/16 19:45 12/28/16 19:44 11/30/16 08:11 5 MG Imipenem/ Cilastatin Sodium/ Dextrose (Primaxin Iv/D5 100ml) 110 ml @ 100 mls/hr Q8H IV 11/30/16 10:00 12/01/16 23:59 12/01/16 17:14 100 MLS/HR Imipenem/ Cilastatin Sodium (Consult) 1 ea UD PRN N/A 11/30/16 09:15 12/01/16 23:59 Acetaminophen/ Hydrocodone Bitart 1 tab 1 tab Q4H PRN PO 11/30/16 12:30 12/14/16 12:29 11/30/16 21:46 1 TAB Methylprednisolone Sodium Succinate 40 mg/Syringe 0.64 ml @ 1.5 mls/min Q24H IV 12/02/16 06:00 01/01/17 05:59 Pantoprazole Sodium/Syringe (Protonix Inj/ Syringe) 10 ml @ 5 mls/min BID@0900,2100 IV 12/01/16 21:00 12/31/16 20:59 Amiodarone HCl (Cordarone Tab) 400 mg BID PO 12/01/16 21:00 12/31/16 20:59 Objective Vital Signs Date Time Temp Pulse Resp B/P Pulse Ox O2 Delivery O2 Flow Rate FiO2 12/01/16 16:58 72 12/01/16 16:00 96 Nasal Cannula 4.0 12/01/16 15:20 37.0 69 27 141/55 93 Nasal Cannula 4.0 12/01/16 14:20 69 27 95 BiPAP/CPAP 12/01/16 12:05 36.8 67 20 147/57 98 12/01/16 12:00 96 BiPAP 15.0 50 12/01/16 11:15 66 97 50 12/01/16 10:29 134/60 12/01/16 08:00 96 BiPAP 15.0 50 12/01/16 07:47 36.4 74 28 164/68 90 Nasal Cannula 4.0 12/01/16 07:09 79 95 50 12/01/16 07:02 74 30 90 BiPAP/CPAP 12/01/16 06:25 78 94 50 12/01/16 04:00 96 BiPAP 50 12/01/16 04:00 36.4 67 24 140/57 98 BiPAP 12/01/16 02:10 78 94 50 12/01/16 01:30 60 26 95 Nasal Cannula 4.0 12/01/16 00:01 96 BiPAP 50 11/30/16 23:26 36.6 67 22 136/60 96 BiPAP 50 11/30/16 22:21 81 94 50 11/30/16 20:00 Nasal Cannula 4.0 Humidified Oxygen 11/30/16 19:28 36.6 75 20 135/48 98 Nasal Cannula 4.0 Humidified Oxygen 11/30/16 19:27 62 26 96 Nasal Cannula 4.0 Physical Exam General Appearance: + mild distress Neck: supple, trachea midline Respiratory/Chest: chest non-tender, + decreased breath sounds Cardiovascular: regular rate, rhythm, no edema Abdomen: normal bowel sounds, non tender, soft Extremities: non-tender, no pedal edema Neurologic/Psychiatric: alert, normal mood/affect Skin: normal color, warm/dry, no rash Laboratory Results Results Past 24 Hours Test 11/30/16 20:29 11/30/16 23:15 12/01/16 05:09 12/01/16 06:48 Range/Units Bedside Glucose 195 129 70-90 mg/dl Hemoglobin 10.0 9.9 12.0-16.0 g/dL Hematocrit 31.6 31.1 37-47 % White Blood Count 12.26 4.8-10.8 K/uL Red Blood Count 3.28 4.2-5.4 M/uL Mean Corpuscular Volume 94.8 80-100 fL Mean Corpuscular Hemoglobin 30.2 25-34 pg Mean Corpuscular Hemoglobin Concent 31.8 32-36 g/dl RDW Standard Deviation 46.4 36.4-46.3 fL RDW Coefficient of Variation 13.3 11.5-14.5 % Platelet Count 335 130-400 K/uL Mean Platelet Volume 9.4 7.4-10.4 fL Activated Partial Thromboplast Time 21.2 21.0-31.0 SECONDS Partial Thromboplastin Ratio 0.8 Sodium Level 140 136-145 mmol/L Potassium Level 3.5 3.5-5.1 mmol/L Chloride Level 90 98-107 mmol/L Carbon Dioxide Level 47 21-32 mmol/L Anion Gap 3.0 3-11 mmol/L Blood Urea Nitrogen 75 7-18 mg/dl Creatinine 1.00 0.60-1.20 mg/dl Est Creatinine Clear Calc Drug Dose 47.2 ml/min Estimated GFR () 62.9 Estimated GFR (Non- 54.3 BUN/Creatinine Ratio 75.4 10-20 Random Glucose 138 70-99 mg/dl Calcium Level 9.5 8.5-10.1 mg/dl Test 12/01/16 11:25 12/01/16 11:29 12/01/16 16:19 12/01/16 16:55 Range/Units Hemoglobin 10.3 9.8 12.0-16.0 g/dL Hematocrit 31.8 30.9 37-47 % Bedside Glucose 127 182 70-90 mg/dl Assessment and Plan This is a 76 y/o female with hx of COPD on home O2 @ 4L, falls, chronic LE edema and generalized weakness, p/w acute worsening of SOB with acute hypoxic respiratory failure prior to arrival with VBG showing CO2 of 47 requiring immediate intubation. Was successfully extubated on 11/25/16. Today patient was more wake and answering my questions. On tele this morning she was on sinus rhythm with heat rates in 70s. * GI bleeding/Rectal bleeding - Stool occult blood is positive - H&H is stable - Hold Heparin for now - The etiology is unclear. ?could be 2/2 anticoagulant - Consult GI and recommended IV Protonix 40mg BID. No plan for invasive workup at this time given her multiple co-morbidities. * Paroxysmal Atrial Fibrillation - Rate control with Amiodarone drip overlapping with PO for tonight, discontinue IV amiodarone in the morning per Cardiology - C/w IV digoxin, f/u with digoxin level tomorrow and adjust accordingly - Metoprolol 5mg q4h prn - Per Cardiology Dr. Dos Santos no anticoagulant is warranted at this moment given she is in sinus rhythm. 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 Will continue to appreciate his recommendations. * Acute on Chronic hypoxic Respiratory Failure - likely 2/2 COPD exacerbation in the setting of pneumonia based on CXR, which showed bibasilar consolidation. - Extubated 11/25 - Maintaining normal saturation with supplemental oxygen for longer period today. Continue Bipap - FiO2 50% at night. - ABG 11/29/16 significant for PCO2 78, PO2 53, and HCO3 47 - CXR 11/27 shows interval development of bibasilar parenchymal infiltrates combined with small left pleural effusion. * COPD exacerbation - C/w home inhalers: Spiriva, Brovana, Pulmicort, Daliresp, Singulair - C/w Atrovent 0.5mg and Xopenex 1.25 q6h scheduled and q2h prn - Decrease the dose of IV Solu-Medrol 40mg to q24h * Bibasilar consolidation - Sputum culture showed Achromobacter xylosoxidans and H. Flu - BCx (-) - Aspiration precautions as per Speech and swallow eval - Day # 6 imipenem/cilastatin, 7 days course per ID recommendation - Continue to appreciate ID recommendations * UTI - UCx was negative. - Day #6 imipenem/cilastatin, 7 days course * Pulmonary congestion in the setting of KARINA - KARINA mostly 2/2 diuresis. Cr is normal (1.0) - CXR 11/29/16 shows persistent bilateral pleural effusions with associated bibasal airspace opacities - s/p IV Lasix - Continue to monitor BMP and hydration status and replace K+ as necessary * Chronic conditions: Hyperlipidemia: Continue Atorvastatin 40mg daily HTN: Continue Propranolol 80mg BID. Continue to hold Lisinopril and Triamtrene/HCTZ because of hypotension DM: Continue Lantus 10 units daily + sliding scale * DVT Prophylaxis - Hold heparin drip for GI bleed - SCD and TEDs * Code status - Full Code Dispo: PT/OT is ordered. Patient was seen by OT today but she barely can stand on her feet. PT/ OT will reassess her tomorrow. Resident Tracking Resident Involvement: Resident Care Provided Care Provided: Adult Hospital Medicine Reviewed: Pt Seen/Exam by Me History has been on bipap since am. Constitutional: denies: fever Respiratory: positive: short of breath Cardiovascular: denies chest pain Gastrointestinal/Abdominal: negative: abdominal pain General Appearance: mild distress Respiratory: decreased breath sounds, crackles Cardiovascular: regular rate, rhythm Gastrointestinal: normal bowel sounds, non tender, soft Neurologic/Psychiatric: alert, oriented x 3 Assessment/Plan I have reviewed the medical record and performed a history and physical examination of this patient today. I have discussed the case with Dr. Hill. The above note reflects my findings, conclusions, and recommendations.
[2016-12-01] MEDS: AMIODARONE 200 MG TAB PO SCH (20:49)
[2016-12-01] MEDS: MONTELUKAST SOD 10 MG TAB PO SCH (20:49)
[2016-12-01] MEDS: PANTOprazole INJ 40 MG in SYRINGE 0 ML IV SCH (20:50)
[2016-12-01] MEDS: ACETAMINOPHEN 325 MG TAB PO PRN (22:24)
[2016-12-01 23:18] LABS: HEMATOCRIT 29.9 % (37-47)
[2016-12-02] VITALS (13 sets, daily range): BP systolic 136–169; BP diastolic 45–64; PULSE 63–79; TEMP 36.4–36.8; O2SAT 89–94
[2016-12-02] MEDS: LEVALBUTEROL 1.25MG/0.5ML NEB INH SCH ×4 (02:14→20:47)
[2016-12-02] MEDS: IPRATROPIUM BROMIDE NEB SOLN 0.02% 2.5 ML VIAL INH SCH ×4 (02:14→20:46)
[2016-12-02] MEDS: METHYLPREDNISOLONE IV 40 MG in SYRINGE 0 ML IV SCH (05:34)
[2016-12-02 06:03] LABS: HEMATOCRIT 30.8 % (37-47); MEAN CORPUSCULAR HEMOGLOBIN 29.9 pg (25-34); MEAN CORPUSCULAR HGB CONC 31.2 g/dl (32-36); MEAN PLATELET VOLUME 9.4 fL (7.4-10.4); PLATELET COUNT 334 K/uL (130-400); RED BLOOD COUNT 3.21 M/uL (4.2-5.4); WHITE BLOOD COUNT 14.13 K/uL (4.8-10.8)
[2016-12-02 06:35] LABS: BUN/CREATININE RATIO 74.4 (10-20); CALCIUM 9.2 mg/dl (8.5-10.1); CREATININE 0.94 mg/dl (0.60-1.20); POTASSIUM 3.4 mmol/L (3.5-5.1)
[2016-12-02 06:39] LABS: PARTIAL THROMBOPLASTIN RATIO 0.8
[2016-12-02] MEDS: INSULIN ASPART 100 UNITS/ML 3 ML PEN SC SCH ×4 (07:00→20:09)
[2016-12-02] MEDS: BUDESONIDE 0.5 MG/2 ML VIAL (PULMICORT) INH SCH ×2 (07:09→19:40)
[2016-12-02] MEDS: ARFORMOTEROL TART 15MCG/2ML VIAL INH SCH ×2 (07:09→19:40)
[2016-12-02] MEDS: BOOST VANILLA PO SCH ×4 (07:30→16:45)
[2016-12-02] MEDS ORDERED: POTASSIUM CHLORIDE 20 MEQ TABCR PO ONE (07:45)
[2016-12-02] MEDS: TIOTROPIUM BROMIDE 5 PUFF/90 MCG INH INH SCH (07:55)
[2016-12-02] MEDS: AMIODARONE 200 MG TAB PO SCH ×2 (07:56→21:21)
[2016-12-02] MEDS: ATORVASTATIN 40 MG TAB PO SCH (07:57)
[2016-12-02] MEDS: SENNA 8.6 MG TAB PO SCH (07:57)
[2016-12-02] MEDS: PANTOprazole INJ 40 MG in SYRINGE 0 ML IV SCH ×2 (07:57→21:20)
[2016-12-02] MEDS: ROFLUMILAST 500 MCG TAB PO SCH (07:58)
[2016-12-02] MEDS: PROPRANOLOL HCL 80 MG TAB PO SCH ×2 (07:58→21:21)
[2016-12-02] MEDS: ASPIRIN 81 MG CHEW PO SCH (08:00)
[2016-12-02 09:00] LABS: ARTERIAL BLD GAS O2 SATURATION 92.4 % (90-95); ARTERIAL BLOOD GAS BASE EXCESS 19.8 mEq/L (-9-1.8); ARTERIAL BLOOD GAS HCO3 48 mmol/L (19-24); ARTERIAL BLOOD GAS PO2 71 mm/Hg (80-95); ARTERIAL BLOOD GAS pH 7.38 (7.35-7.45)
[2016-12-02 09:02] LABS: ALLEN TEST POS (POS); O2 ADMINISTRATION 6L
[2016-12-02 10:06] LABS: ESTIMATED AVERAGE GLUCOSE 126 mg/dl; HA1C FLAG Normal (Normal)
--- NOTE | 2016-12-02 10:22 | Family Medicine Progress Note ---
Progress Note Date of Service Dec 02, 2016. Subjective Pt evaluation today including: conversation w/ patient, physical exam, lab review, review of studies Patient was seen at the bedside. She was awake and alter. She complains of worsening SOB. Per nurse she was refusing BiPAP overnight and was very anxious. Denies any chest pain. Currently she is not any IVF. Constitutional: No fever Respiratory: + cough, + shortness of breath Cardiovascular: No chest pain, No edema Abdomen: No constipation, No diarrhea, No nausea, No pain, No vomiting Medications Current Inpatient Medications Medications (Trade) Dose Ordered Sig/Omkar Route Start Time Stop Time Status Last Admin Dose Admin Acetaminophen (Tylenol Tab) 650 mg Q4H PRN PO 11/21/16 15:45 12/21/16 15:44 12/01/16 22:24 650 MG Atorvastatin Calcium (Lipitor Tab) 40 mg DAILY PO 11/22/16 09:00 12/22/16 08:59 12/02/16 07:57 40 MG Montelukast Sodium (Singulair Tab) 10 mg QPM PO 11/21/16 21:00 12/21/16 20:59 12/01/16 20:49 10 MG Propranolol HCl (Inderal Tab) 80 mg BID PO 11/21/16 21:00 12/21/16 20:59 12/02/16 07:58 80 MG Roflumilast (Daliresp Tab) 500 mcg DAILY PO 11/22/16 09:00 12/22/16 08:59 12/02/16 07:58 500 MCG Senna (Senokot Tab) 8.6 mg QAM PO 11/22/16 09:00 12/22/16 08:59 12/02/16 07:57 8.6 MG Aspirin (Aspirin Chew) 81 mg DAILY PO 11/23/16 09:00 12/23/16 08:59 12/02/16 08:00 81 MG Heparin Sodium (Porcine) (Heparin 10 Unit/ ml 5 ml Flush) 5 ml PRN PRN FLUSH 11/25/16 04:15 12/25/16 04:14 Ondansetron HCl (Zofran Tab) 4 mg Q4H PRN PO 11/26/16 00:30 12/26/16 00:29 11/26/16 03:06 4 MG Insulin Aspart (novoLOG ASPART) SLIDING SCALE ACHS SC 11/26/16 08:00 12/26/16 07:59 12/01/16 16:45 6 UNITS Arformoterol Tartrate (Brovana 15MCG/ 2ML Neb Soln) 15 mcg BIDR INH 11/26/16 20:00 12/26/16 19:59 12/02/16 07:09 15 MCG Budesonide (Pulmicort Respules 0.5MG/ 2ML Neb Soln) 0.5 mg BIDR INH 11/26/16 20:00 12/26/16 19:59 12/02/16 07:09 0.5 MG Tiotropium [place] (Spiriva Handihaler Inhaler) 1 puff DAILY INH 11/27/16 09:00 12/27/16 08:59 12/02/16 07:55 1 PUFF Lisinopril (Zestril Tab) 5 mg DAILY PO 11/27/16 09:00 12/27/16 08:59 Future Hold 11/27/16 10:01 5 MG Triamterene/HCTZ 1 cap 1 cap DAILY PO 11/27/16 09:00 12/27/16 08:59 Future Hold 11/27/16 10:02 1 CAP Digoxin 125 mcg/ Syringe 10 ml @ 2 mls/min DAILY@16 IV 11/27/16 16:00 12/27/16 15:59 12/01/16 16:58 2 MLS/MIN Heparin Sodium/ Dextrose (Heparin 25,000 Unit/500ml D5W) 500 ml @ 30 mls/hr [id number] PRN IV 11/26/16 16:15 12/26/16 16:14 Future Hold 11/30/16 10:36 30 MLS/HR Enteral Nutritional Formula (Boost) 1 can BIDM PO 11/26/16 16:30 12/26/16 16:29 12/01/16 07:44 1 CAN Miscellaneous Information (Consult Glycemic Management Pharmacy) 1 ea UD PRN N/A 11/27/16 07:00 12/27/16 06:59 Ipratropium [place] (Atrovent 0.02% 0.5MG/2.5ML Neb) 0.5 mg Q6R INH 11/28/16 09:00 12/28/16 07:44 12/02/16 02:14 0.5 MG Levalbuterol 1.25 mg 1.25 mg Q6R INH 11/28/16 09:00 12/28/16 07:44 12/02/16 02:14 1.25 MG Diltiazem HCl/ Dextrose (Cardizem Inj/D5 100ml) 125 ml @ 0 mls/hr Q0M PRN IV 11/28/16 08:45 12/28/16 08:44 Future Hold Ipratropium [place] (Atrovent 0.02% 0.5MG/2.5ML Neb) 0.5 mg Q2R PRN INH 11/28/16 09:15 12/28/16 09:14 11/28/16 10:55 0.5 MG Levalbuterol (Xopenex 1.25MG/ 0.5ML Neb) 1.25 mg Q2R PRN INH 11/28/16 09:15 12/28/16 09:14 11/28/16 10:55 1.25 MG Metoprolol Tartrate (Lopressor Iv) 5 mg Q4H PRN IV 11/28/16 19:45 12/28/16 19:44 11/30/16 08:11 5 MG Acetaminophen/ Hydrocodone Bitart 1 tab 1 tab Q4H PRN PO 11/30/16 12:30 12/14/16 12:29 11/30/16 21:46 1 TAB Methylprednisolone Sodium Succinate 40 mg/Syringe 0.64 ml @ 1.5 mls/min Q24H IV 12/02/16 06:00 01/01/17 05:59 12/02/16 05:34 1.5 MLS/MIN Pantoprazole Sodium/Syringe (Protonix Inj/ Syringe) 10 ml @ 5 mls/min BID@0900,2100 IV 12/01/16 21:00 12/31/16 20:59 12/02/16 07:57 5 MLS/MIN Amiodarone HCl (Cordarone Tab) 400 mg BID PO 12/01/16 21:00 12/31/16 20:59 12/02/16 07:56 400 MG Objective Vital Signs Date Time Temp Pulse Resp B/P Pulse Ox O2 Delivery O2 Flow Rate FiO2 12/02/16 07:47 36.8 74 18 169/64 89 12/02/16 07:09 71 19 92 BiPAP/CPAP 12/02/16 04:00 BiPAP 40 12/02/16 03:21 36.4 64 24 136/45 94 Nasal Cannula 5.0 12/02/16 02:14 65 20 90 Nasal Cannula 5.0 12/02/16 00:00 BiPAP 40 12/01/16 23:55 93 40 12/01/16 23:13 37.1 63 24 152/47 95 Nasal Cannula 4.0 12/01/16 20:00 Nasal Cannula 4.0 12/01/16 19:16 72 22 92 Nasal Cannula 4.0 12/01/16 19:00 37.1 71 28 139/66 92 Nasal Cannula 4.0 12/01/16 16:58 72 12/01/16 16:00 96 Nasal Cannula 4.0 12/01/16 15:20 37.0 69 27 141/55 93 Nasal Cannula 4.0 12/01/16 14:20 69 27 95 BiPAP/CPAP 12/01/16 12:05 36.8 67 20 147/57 98 12/01/16 12:00 96 BiPAP 15.0 50 12/01/16 11:15 66 97 50 12/01/16 10:29 134/60 Physical Exam General Appearance: + mild distress Neck: supple, trachea midline Respiratory/Chest: chest non-tender, + respiratory distress, + decreased breath sounds, + crackles Cardiovascular: regular rate, rhythm, no edema Abdomen: normal bowel sounds, non tender, soft Extremities: non-tender, no pedal edema Neurologic/Psychiatric: alert Skin: normal color, warm/dry Laboratory Results Results Past 24 Hours Test 12/01/16 11:25 12/01/16 11:29 12/01/16 16:19 12/01/16 16:55 Range/Units Hemoglobin 10.3 9.8 12.0-16.0 g/dL Hematocrit 31.8 30.9 37-47 % Bedside Glucose 127 182 70-90 mg/dl Test 12/01/16 20:14 12/01/16 23:10 12/02/16 05:30 12/02/16 06:22 Range/Units Bedside Glucose 115 105 70-90 mg/dl Hemoglobin 9.7 9.6 12.0-16.0 g/dL Hematocrit 29.9 30.8 37-47 % White Blood Count 14.13 4.8-10.8 K/uL Red Blood Count 3.21 4.2-5.4 M/uL Mean Corpuscular Volume 96.0 80-100 fL Mean Corpuscular Hemoglobin 29.9 25-34 pg Mean Corpuscular Hemoglobin Concent 31.2 32-36 g/dl RDW Standard Deviation 46.7 36.4-46.3 fL RDW Coefficient of Variation 13.4 11.5-14.5 % Platelet Count 334 130-400 K/uL Mean Platelet Volume 9.4 7.4-10.4 fL Activated Partial Thromboplast Time 20.8 21.0-31.0 SECONDS Partial Thromboplastin Ratio 0.8 Sodium Level 142 136-145 mmol/L Potassium Level 3.4 3.5-5.1 mmol/L Chloride Level 92 98-107 mmol/L Carbon Dioxide Level 51 21-32 mmol/L Anion Gap -1.0 3-11 mmol/L Blood Urea Nitrogen 70 7-18 mg/dl Creatinine 0.94 0.60-1.20 mg/dl Est Creatinine Clear Calc Drug Dose 49.8 ml/min Estimated GFR () 67.8 Estimated GFR (Non- 58.5 BUN/Creatinine Ratio 74.4 10-20 Random Glucose 93 70-99 mg/dl Estimated Average Glucose 126 mg/dl Hemoglobin A1c 6.0 4.5-5.6 % Calcium Level 9.2 8.5-10.1 mg/dl Digoxin Level 1.7 0.8-2.0 ng/ml Test 12/02/16 08:44 Range/Units Arterial Blood pH 7.38 7.35-7.45 Arterial Blood Partial Pressure CO2 83 35-46 mmHg Arterial Blood Partial Pressure O2 71 80-95 mm/Hg Arterial Blood HCO3 48 19-24 mmol/L Arterial Blood Oxygen Saturation 92.4 90-95 % Arterial Blood Base Excess 19.8 -9-1.8 mEq/L Arterial Blood Gas Delivery 6L Rd Test POS POS Assessment and Plan This is a 76 y/o female with hx of COPD on home O2 @ 4L, falls, chronic LE edema and generalized weakness, p/w acute worsening of SOB with acute hypoxic respiratory failure prior to arrival with VBG showing CO2 of 47 requiring immediate intubation. Was successfully extubated on 11/25/16. * Acute on Chronic hypoxic Respiratory Failure extubated 11/25 - Patient is having worsening of SOB, CO2 increased, requiring more frequent BiPAP with FiO2 60%. - Order CXR - pending, Incentive spirometry - It is multifactorial. Most likely 2/2 COPD exacerbation, pneumonia, and CHF - ABG 11/29/16 significant for PCO2 78, PO2 53, and HCO3 47 - CXR 11/27 shows interval development of bibasilar parenchymal infiltrates combined with small left pleural effusion. - Patient had speech and swallow eval on 11/25. Recommendations as follows: 1. Moist mechanical soft diet as tolerated 2. STRICT aspiration precautions, straws OK with small single sips. Fully upright for p.o. intake & for 30 minutes after intake. Supervision while eating. 3. Small bites, small single sips. Frequent rest breaks and slow rate. No talking while eating. Modify diet to pureed if have difficulty. * COPD exacerbation - C/w home inhalers: Spiriva, Brovana, Pulmicort, Daliresp, Singulair - C/w Atrovent 0.5mg and Xopenex 1.25 q6h scheduled and q2h prn - Decrease the dose of IV Solu-Medrol 40mg to q24h * Diastole CHF with preserved EF - Patient current symptoms and recent Echo suggestive of CHF - Echo (11/22): * The LV is normal in size. * There is normal left ventricular wall thickness. * All left ventricular wall segments are hyperdynamic, with LV EF 70 %. * The left ventricular wall motion is normal. * Dilated RV with normal function. * The left atrium is moderately dilated. * Aortic valve sclerosis mild, without significant aortic valvular stenosis. * Dilated inferior vena cava with reduced collapsibility with sniff indicates an elevated RA pressure of 15 mmHg - CXR (12/02): Increasing left pleural effusion with progressive left lower lobe atelectasis/consolidation. - CXR 11/29/16 shows persistent bilateral pleural effusions with associated bibasal airspace opacities - Patient diuresis well with IV Lasix - Continue to monitor I/O. Continue to monitor renal function to prevent azotemia * Bibasilar consolidation - Sputum culture showed Achromobacter xylosoxidans and H. Flu - BCx (-) - Aspiration precautions as per Speech and swallow eval - Day # 7 imipenem/cilastatin, 7 days course per ID recommendation - Continue to appreciate ID recommendations * Paroxysmal Atrial Fibrillation - Rate control with PO Amiodarone 400mg BID - C/w IV digoxin 125mcg, Digoxin level is 1.7 (no change from previous). Will wait for Cardiology recommendation - Metoprolol 5mg q4h prn - Per Cardiology Dr. Dos Santos no anticoagulant is warranted at this moment given she is in sinus rhythm. 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 Will continue to appreciate his recommendations. * GI bleeding/Rectal bleeding - Stool occult blood is positive - H&H is stable - Hold Heparin for now - The etiology is unclear. ?could be 2/2 anticoagulant - Consult GI and recommended IV Protonix 40mg BID. No plan for invasive workup at this time given her multiple co-morbidities. * UTI - UCx was negative. - Day #7 imipenem/cilastatin, 7 days course * Chronic conditions: Hyperlipidemia: Continue Atorvastatin 40mg daily HTN: Continue Propranolol 80mg BID. Continue to hold Lisinopril and Triamtrene/HCTZ because of hypotension DM: Continue Lantus 10 units daily + sliding scale * DVT Prophylaxis - Hold heparin drip for GI bleed - SCD and TEDs * Code status - Full Code Dispo: PT/OT is ordered. Patient was seen by OT today but she barely can stand on her feet. PT/ OT will reassess her tomorrow. Resident Tracking Resident Involvement: Resident Care Provided Care Provided: Adult Hospital Medicine Reviewed: Pt Seen/Exam by Me History has been on bipap most of the day Constitutional: denies: fever Respiratory: positive: short of breath (on bipap) Cardiovascular: denies chest pain General Appearance: other (on bipap) Respiratory: decreased breath sounds (base), crackles, other (on bipap) Cardiovascular: irregularly irregular Neurologic/Psychiatric: other (somnolent - easily arousable) Skin Characteristics: warm/dry Assessment/Plan I have reviewed the medical record and performed a history and physical examination of this patient today. I have discussed the case with Dr. Hill. The above note reflects my findings, conclusions, and recommendations.
--- NOTE | 2016-12-02 11:05 | DIAGNOSTIC IMAGING REPORT ---
CHEST ONE VIEW PORTABLE CLINICAL HISTORY: Worsening shortness of breath COMPARISON STUDY: 11/29/2016 FINDINGS: The cardiac and mediastinal contours remain stable. The right-sided PICC catheter remains unchanged in position. There is an increasing left pleural effusion with worsening left lower lobe atelectasis/consolidation. There are stable right basilar airspace opacities. There is a suspected small right-sided pulmonic pleural effusion.[ IMPRESSION: Increasing left pleural effusion with progressive left lower lobe atelectasis/consolidation. Electronically signed by: Boo Kaplan M.D. 12/02/2016 11:04 AM Dictated Date/Time: 12/02/2016 11:03 AM
--- NOTE | 2016-12-02 12:06 | Pharmacy Progress Note ---
Pharmacy Glycemic Sign Off Nt Date of Service Dec 02, 2016. Assessment & Plan ASSESSMENT: * Pharmacy was consulted by Dr Krause on 11/24/16 for glycemic control and to write orders per [facility] inpatient glycemic control protocol. * Major changes made by pharmacy to antidiabetic regimen include: * Initiating SQ insulin regimen for steroid/stress induced hyperglycemia * Patient has been receiving/requiring 10 or less units of insulin per day for adequate glycemic control * BSGs ranging 105 - 182 mg/dl * Regimen has only required minor adjustments over the past 48hrs to achieve this level of control * Do not anticipate further changes in patient status that would quickly deteriorate glycemic control * Diet titrated up to to full diet/Food * Steroids tapered - no longer inducing severe steroid induced hyperglycemia * Please see recommendations for outpatient antidiabetic regimen below. PLAN FOR INPATIENT GLYCEMIC CONTROL: No changes needed to current regimen. * No basal insulin needed at this time * Continue NovoLog per scale ACHS/Q6hrs while NPO * Goal range = 140 -180 mg/dl * CF = 40 mg/dl/unit * CR = 1 unit for ever 13 g CHO consumed * A1c added to discharge instructions to be communicated to PCP. * Pharmacy is signing off of glycemic consult and will no longer be making adjustments to inpatient regimen. Please feel free to re-consult if needed. Thank you. DISCHARGE RECOMMENDATIONS: * A1c 6 % on 12/02/16 * HbA1c of 5.7-6.4% indicates "pre-diabetes" --> ADA recommendation is to institute diabetes and atherosclerosis prevention * Recommend healthy eating, weight control, increased physical education
[2016-12-02] MEDS: IPRATROPIUM BROMIDE NEB SOLN 0.02% 2.5 ML VIAL INH PRN ×2 (12:16→23:18)
[2016-12-02] MEDS: LEVALBUTEROL 1.25MG/0.5ML NEB INH PRN ×2 (12:16→23:19)
[2016-12-02] MEDS: ACETAMINOPHEN 325 MG TAB PO PRN (13:15)
--- NOTE | 2016-12-02 14:38 | Cardiology Follow-Up ---
Subjective Date of Service: Dec 02, 2016. Pt evaluation today including: conversation w/ patient, physical exam, lab review, review of studies, review of inpatient medication list History of Present Illness This is a 76-year-old woman who has a history of severe COPD (with a long smoking history) as well as diabetes mellitus, hypertension, hypercholesterolemia and anemia. She was admitted with respiratory failure and required intubation, she has now improved and has been extubated. This morning at around 8:00 she went into atrial fibrillation with a rapid heart rate, she was given a 15 mg bolus of diltiazem and she remains in atrial fibrillation with a somewhat rapid heart rate. She denies palpitations. From the cardiovascular standpoint as far as I know she has never had coronary artery disease identified, she has however evidently had atrial fibrillation in the past. Although I cannot find any direct mention of it in the office records she reports having it for many years and "doctoring" for it. By that she tells me that she was on Inderal for her atrial fibrillation, and she tells me she was on aspirin but denies ever being offered an anticoagulant. I can't tell from her history where or when the arrhythmia was diagnosed or how often she had it or its nature (brief or persistent episodes) and although she does say that at time she will have an irregular heart rate that might last days at a time. She had remained in atrial fibrillation therefore I started her on intravenous diltiazem for rate control, which worked fairly well after she received several doses of digoxin. I also started intravenous heparin. She remained unaware of the arrhythmia. She had recurrent atrial fibrillation and we started intravenous amiodarone. After several days she had good control of her arrhythmia, she remained on intravenous heparin however had a drop in hemoglobin and that was discontinued. Social History Smoking Status: Current Every Day Smoker Review of Systems Respiratory: + cough, + shortness of breath Cardiac: No chest pain, No edema Medications Cardiovascular: Item Value Date Time Amiodarone HCl 400 mg 12/01/162099 (Cordarone Tab) BID/PO 12/02/16 075 Metoprolol 5 mg 11/28/16 194 Tartrate Q4H PRN/IV 11/30/16 0811 (Lopressor Iv) Propranolol HCl 80 mg 11/21/162099 (Inderal Tab) BID/PO 12/02/16 075 Aspirin 81 mg 11/23/16 0900 (Aspirin Chew) DAILY/PO 12/02/16 0800 Objective Vital Signs Past 12 Hours Date Time Temp Pulse Resp B/P Pulse Ox O2 Delivery O2 Flow Rate FiO2 12/02/16 12:17 67 24 89 Nasal Cannula 5.0 12/02/16 12:00 Nasal Cannula 6.0 12/02/16 11:20 63 92 40 12/02/16 08:00 BiPAP 60 12/02/16 07:47 36.8 74 18 169/64 89 12/02/16 07:09 71 19 92 BiPAP/CPAP 12/02/16 04:00 BiPAP 40 12/02/16 03:21 36.4 64 24 136/45 94 Nasal Cannula 5.0 Last Recorded Weight-Kilograms: 75.400 Intake & Output 8-Hour Column 12/01/16 12/02/16 12/02/16 16:00 00:00 08:00 Intake Total 597 ml 240 ml Output Total 400 ml 450 ml 375 ml Balance 197 ml -210 ml -375 ml 24-Hour Column 12/02/16 08:00 Intake Total 837 ml Output Total 1225 ml Balance -388 ml Physical Exam Constitutional: Level of Distress: NAD Lungs: Respiratory effort: good air movement Auscultation: decreased breath sounds Cardiovascular: Heart Auscultation: RRR, no murmurs, no rubs, no gallops Peripheral Pulses: Bruits: none appreciated Extremities: no edema Data Laboratory Results: Last 24 Hours Test 12/01/16 16:19 12/01/16 16:55 12/01/16 20:14 12/01/16 23:10 Bedside Glucose 182 mg/dl 115 mg/dl Hemoglobin 9.8 g/dL 9.7 g/dL Hematocrit 30.9 % 29.9 % Test 12/02/16 05:30 12/02/16 06:22 12/02/16 08:44 12/02/16 11:28 White Blood Count 14.13 K/uL Red Blood Count 3.21 M/uL Hemoglobin 9.6 g/dL Hematocrit 30.8 % Mean Corpuscular Volume 96.0 fL Mean Corpuscular Hemoglobin 29.9 pg Mean Corpuscular Hemoglobin Concent 31.2 g/dl RDW Standard Deviation 46.7 fL RDW Coefficient of Variation 13.4 % Platelet Count 334 K/uL Mean Platelet Volume 9.4 fL Activated Partial Thromboplast Time 20.8 SECONDS Partial Thromboplastin Ratio 0.8 Sodium Level 142 mmol/L Potassium Level 3.4 mmol/L Chloride Level 92 mmol/L Carbon Dioxide Level 51 mmol/L Anion Gap -1.0 mmol/L Blood Urea Nitrogen 70 mg/dl Creatinine 0.94 mg/dl Est Creatinine Clear Calc Drug Dose 49.8 ml/min Estimated GFR () 67.8 Estimated GFR (Non- 58.5 BUN/Creatinine Ratio 74.4 Random Glucose 93 mg/dl Estimated Average Glucose 126 mg/dl Hemoglobin A1c 6.0 % Calcium Level 9.2 mg/dl Digoxin Level 1.7 ng/ml Bedside Glucose 105 mg/dl 126 mg/dl Arterial Blood pH 7.38 Arterial Blood Partial Pressure CO2 83 mmHg Arterial Blood Partial Pressure O2 71 mm/Hg Arterial Blood HCO3 48 mmol/L Arterial Blood Oxygen Saturation 92.4 % Arterial Blood Base Excess 19.8 mEq/L Arterial Blood Gas Delivery 6L Rd Test POS Telemetry reviewed: No atrial fibrillation for 48 hours. Assessment and Plan #1. Atrial fibrillation: Her and her are certainly familiar with the term atrial fibrillation and tell me that she had it diagnosed many years ago. I can't find specifics about it, but she has never been offered an anticoagulant but she was on Inderal presumably for the arrhythmia. She probably has paroxysmal atrial fibrillation based on this but I can't be sure. Her heart rate was fairly well controlled on diltiazem and digoxin, although her blood pressure was borderline. Amiodarone appeared to convert the rhythm ( or at least the arrhythmia converted to sinus rhythm on amiodarone intravenously ) but she continued to have atrial fibrillation for several days. However more recently (more than 48 hours) she has had no further atrial fibrillation and remains on amiodarone. She started oral amiodarone today and I discontinued the IV, that may cause recurrence of her atrial fibrillation as a can take some time to load orally. She is on digoxin as well for rate control, her digoxin level this morning was 1.7, amiodarone does raise digoxin levels. We should probably reduce the dose but perhaps not stop it. I will convert her 0.125 mg Wednesday and Wednesday. #2. Anticoagulation: At the moment we don't need anticoagulation since she is in sinus rhythm, over the long run from the cardiovascular standpoint it would be better for her to be on an anticoagulant but it may be too risky. We do not need to make that determination at this time. Thank you for allowing me to participate in her care.
[2016-12-02] MEDS ORDERED: FUROSEMIDE INJ 40 MG in SYRINGE 0 ML IV ONE (17:00)
[2016-12-02] MEDS: BOOST BREEZE NUTRITION DRINK 1 BOX PO SCH (20:10)
[2016-12-02] MEDS: MONTELUKAST SOD 10 MG TAB PO SCH (21:23)
[2016-12-03] VITALS (11 sets, daily range): BP systolic 115–148; BP diastolic 38–72; PULSE 63–71; TEMP 36.5–37.2; O2SAT 92–98
[2016-12-03] MEDS: LEVALBUTEROL 1.25MG/0.5ML NEB INH SCH ×4 (01:50→19:04)
[2016-12-03] MEDS: IPRATROPIUM BROMIDE NEB SOLN 0.02% 2.5 ML VIAL INH SCH ×4 (01:50→19:04)
[2016-12-03] MEDS: METHYLPREDNISOLONE IV 40 MG in SYRINGE 0 ML IV SCH (06:20)
[2016-12-03 06:27] LABS: PARTIAL THROMBOPLASTIN RATIO 0.8
[2016-12-03 06:53] LABS: BUN/CREATININE RATIO 66.9 (10-20); CALCIUM 9.8 mg/dl (8.5-10.1); CREATININE 0.88 mg/dl (0.60-1.20); POTASSIUM 3.6 mmol/L (3.5-5.1)
[2016-12-03 07:21] LABS: HEMATOCRIT 30.3 % (37-47); MEAN CELL VOLUME 98.7 fL (80-100); MEAN CORPUSCULAR HEMOGLOBIN 30.3 pg (25-34); MEAN CORPUSCULAR HGB CONC 30.7 g/dl (32-36); MEAN PLATELET VOLUME 9.9 fL (7.4-10.4); PLATELET COUNT 326 K/uL (130-400); RED BLOOD COUNT 3.07 M/uL (4.2-5.4); WHITE BLOOD COUNT 15.94 K/uL (4.8-10.8)
[2016-12-03] MEDS: ARFORMOTEROL TART 15MCG/2ML VIAL INH SCH ×2 (07:34→19:04)
[2016-12-03] MEDS: BUDESONIDE 0.5 MG/2 ML VIAL (PULMICORT) INH SCH ×2 (07:34→19:04)
[2016-12-03] MEDS: INSULIN ASPART 100 UNITS/ML 3 ML PEN SC SCH ×4 (08:44→21:41)
[2016-12-03] MEDS: BOOST VANILLA PO SCH ×4 (08:46→16:36)
[2016-12-03] MEDS: BOOST BREEZE NUTRITION DRINK 1 BOX PO SCH ×2 (08:46→21:39)
[2016-12-03] MEDS: PANTOprazole INJ 40 MG in SYRINGE 0 ML IV SCH (09:03)
[2016-12-03] MEDS: ATORVASTATIN 40 MG TAB PO SCH (09:03)
[2016-12-03] MEDS: SENNA 8.6 MG TAB PO SCH (09:03)
[2016-12-03] MEDS: ROFLUMILAST 500 MCG TAB PO SCH (09:04)
[2016-12-03] MEDS: PROPRANOLOL HCL 80 MG TAB PO SCH ×2 (09:04→21:53)
[2016-12-03] MEDS: AMIODARONE 200 MG TAB PO SCH ×2 (09:04→21:53)
[2016-12-03] MEDS: TIOTROPIUM BROMIDE 5 PUFF/90 MCG INH INH SCH (09:05)
[2016-12-03] MEDS: ASPIRIN 81 MG CHEW PO SCH (09:09)
--- NOTE | 2016-12-03 09:53 | Pulmonary Consultation ---
History General Date of Service: Dec 03, 2016. Stated Complaint: Acute Respiratory Failure HPI The patient is a 76 year old female who presents to [facility] with complaints of Acute Respiratory Failure. The patient's primary care provider is Yanira Valdez C.R.N.P. 76-yo female admitted through [facility] 11/21/16 with hypoxic hypercarbic respiratory failure, KARINA, and atrial fibrillation (as below). PMHx includes: severe O2-dependent COPD/emphsema (PFT 2012: FEV1: 32%, severe reduction in DLCO- dx [id number]), 4-LPM baseline. She follows with [facility]ology, atrial fibrillation, hyperlipidemia, macrocytic anemia, diabetes II , HTN. Uses walker for ambulation. Current tobacco (avg 1ppd, current 1/2 ppd > 25-pack year). She is on [employer]: andrea-resp, spiriva, brovana, nebulized budesonide , and 10mg prednisone. CT 07/2016: tree-in-bud nodular changes in anterior RML and lingula. Patchy opacity RLL 3.9 x 2.9cm extending into the right posterior costophrenic angle. Mild centrilobular emphysema in the upper lobes. Bronchiectasis and mucous filled bronchi in the RML and lingula. There is a 1.7 x 1.8cm lesion in the interpolar region of the right kidney. In the ER, CXR: emphysema with bibasilar patchy airspace consolidation with small pleural effusions. WBC: 140.16, Hgb.Ht: 11.9/40.7. VBG: pH: 7.19, CO2: 118. ProBNP: 814. In the ER she failed EMS-BiPAP and was intubated in the ER and admitted to the ICU for further care. Echocardiogram: 11/22: EF 70%, dilated IVC (intubated), dilated RV with normal function, grade I diastolic dysfunction. Urine: Achromobacter xylosoxidans and and haemophilus influenzae - ID consulted and antibiotic regimen adjusted to imipenem/cilastatin. She was extubated 11/25/16 and weaned to 4LPM. 11/26/16 she developed a.fib with RVR for which cardiology has been following - treated with Cardizem gtt, amiodarone and digoxin with conversion to NSR. She continued to demonstrate intermittent respiratory insufficiency, somnolence and CO2 retention for which she received additional fluid management and attempts of BiPAP with intermittent use at best. CXR continued to demonstrate persistent bilateral pleural effusion with bibasilar airspace opacities. 12/01 GI consulted for progressive anemia and ? GIB she was not felt to be a candidate for invasive diagnostics and PPI initiated. CXR 01/01/17: increase in left pleural effusion with progression of LLL consolidation. 12/02/16 VB.38, CO2: 83 Family History FH: heart disease Social History Hx Tobacco Use In Past Year?: Yes Smoking Status: Current Every Day Smoker Marital status: Housing status: lives with family Occupational Status: retired Immunizations History of Influenza Vaccine: No History of Tetanus Vaccine?: Unknown History of Pneumococcal: Yes History of Hepatitis B Vaccine: No History of MDRO History of MDRO: No Allergies Coded Allergies: Penicillins (Verified Allergy, Intermediate, HIVES, 08/16/14) Tetracycline (Verified Allergy, Mild, RASH, 08/16/14) Doxycycline (Verified Allergy, Unknown, RASH, 08/16/14) Sulfamethoxazole (Verified Allergy, Unknown, 08/16/14) Replaces SULFAMETHOXAZ Trimethoprim (Verified Allergy, Unknown, 08/16/14) Replaces SULFAMETHOXAZ Cephalosporins (Verified Adverse Reaction, Mild, CEPHALEXIN--GI, 11/22/16) Current Medications Reported Home Medications Medications Dose Route/Sig Max Daily Dose Days Date Category Dose Instructions Multivitamin (Multivitamins) Tab 1 Tab PO DAILY 11/21/16 Reported Triamterene/Hctz 37.5-25MG (Triamterene/HCTZ) 1 Tab Tab 1 Tab PO BID 11/21/16 Reported Prednisone 10 Mg Tab 10 Mg PO DIRECTED 11/21/16 Reported TAKE 1 TABLET DAILY WITH FOOD FOR CHRONIC BRONCHITIS, EXACERBATION TAKE 4 TABLETS DAILY FOR 10 DAYS THEN DECREASE TO 2 TABLETS DAILY FOR 10 DAYS Montelukast Sodium 10 Mg Tab 10 Mg PO QPM 11/21/16 Reported Zestril (Lisinopril) 5 Mg Tab 5 Mg PO DAILY 11/21/16 Reported Levaquin (Levofloxacin) 500 Mg Tab 500 Mg PO DIRECTED 11/21/16 Reported USE PRN WHEN CHEST FEELS TIGHT Duoneb (Ipratropium-Albuterol) 3 Ml Nebu 1 Vial NEB Q4H PRN 11/21/16 Reported Reny Allergy (Fexofenadine Hcl) 180 Mg Tab 180 Mg PO BID 11/21/16 Reported Kp Ferrous Sulfate (Ferrous Sulfate) 325 Mg Tab 325 Mg PO DAILY 11/21/16 Reported Daliresp (Roflumilast) 500 Mcg Tab 500 Mcg PO DAILY 11/21/16 Reported Brovana (Arformoterol Tartrate) 15 Mcg/2 Ml Neb 1 Vial NEB BID 11/21/16 Reported Ipratropium [place] (Ipratropium [place] (Nasal)) 0.03 % Spr 4 Puff INH Q4H PRN 11/21/16 Reported Senna Lax (Senna) 8.6 Mg Tab 8.6 Mg PO QAM 30 08/19/14 Rx Spiriva Handihaler (Tiotropium [place]) 30 Puff/540 Mcg Aerp 2 Puffs INH DAILY 08/16/14 Reported Lipitor (Atorvastatin Calcium) 40 Mg Tab 40 Mg PO DAILY 08/16/14 Reported Oxygen Gas 4 Liters NA UD 06/10/12 Reported 4 LITERS TWICE DAILY Pulmicort Respules 0.5MG/2ML (Budesonide) 0.5 Mg/2 Ml Nebu 2 Ml INH Q12HR 06/10/12 Reported Mucinex Ext Rel (Guaifenesin) 600 Mg Tab 600-1,200 Mg PO BID PRN 06/10/12 Reported Ecotrin Or Generic (Aspirin) 81 Mg Tab 81 Mg PO DAILY 06/10/12 Reported Inderal (Propranolol HCl) 80 Mg Tab 80 Mg PO BID 07/15/10 Reported Physical Physical Exam Vital Signs: Date Time Temp Pulse Resp B/P Pulse Ox O2 Delivery O2 Flow Rate FiO2 12/03/16 07:48 36.5 68 18 115/72 95 Nasal Cannula 6.0 Humidified Oxygen 12/03/16 07:35 63 28 93 BiPAP/CPAP 12/03/16 05:02 36.5 64 22 125/38 98 BiPAP 6.0 60 12/03/16 04:00 BiPAP 60 12/03/16 02:55 36.5 64 22 125/38 98 Nasal Cannula 2.0 12/03/16 01:50 71 22 93 Nasal Cannula 6.0 12/03/16 00:00 BiPAP 60 12/02/16 23:19 68 22 92 Nasal Cannula 4.0 12/02/16 23:00 36.4 64 20 146/50 93 Nasal Cannula 4.0 12/02/16 21:00 92 BiPAP 6.0 12/02/16 19:40 92 40 12/02/16 19:40 71 24 92 BiPAP/CPAP 40 12/02/16 19:00 36.6 79 28 150/53 94 BiPAP 12/02/16 16:00 BiPAP 60 12/02/16 15:10 36.7 71 30 154/55 92 BiPAP 12/02/16 14:05 65 32 92 BiPAP/CPAP 40 12/02/16 14:05 65 92 40 12/02/16 12:17 67 24 89 Nasal Cannula 5.0 12/02/16 12:00 Nasal Cannula 6.0 12/02/16 11:20 63 92 40 Diagnostics Labs Results Past 24 Hours Test 12/02/16 11:28 12/02/16 16:14 12/02/16 20:01 12/03/16 04:45 Range/Units Bedside Glucose 126 136 160 70-90 mg/dl White Blood Count 15.94 4.8-10.8 K/uL Red Blood Count 3.07 4.2-5.4 M/uL Hemoglobin 9.3 12.0-16.0 g/dL Hematocrit 30.3 37-47 % Mean Corpuscular Volume 98.7 80-100 fL Mean Corpuscular Hemoglobin 30.3 25-34 pg Mean Corpuscular Hemoglobin Concent 30.7 32-36 g/dl RDW Standard Deviation 48.1 36.4-46.3 fL RDW Coefficient of Variation 13.5 11.5-14.5 % Platelet Count 326 130-400 K/uL Mean Platelet Volume 9.9 7.4-10.4 fL Activated Partial Thromboplast Time 20.1 21.0-31.0 SECONDS Partial Thromboplastin Ratio 0.8 Sodium Level 146 136-145 mmol/L Potassium Level 3.6 3.5-5.1 mmol/L Chloride Level 95 98-107 mmol/L Carbon Dioxide Level 46 21-32 mmol/L Anion Gap 5.0 3-11 mmol/L Blood Urea Nitrogen 59 7-18 mg/dl Creatinine 0.88 0.60-1.20 mg/dl Est Creatinine Clear Calc Drug Dose 53.3 ml/min Estimated GFR () 73.5 Estimated GFR (Non- 63.4 BUN/Creatinine Ratio 66.9 10-20 Random Glucose 77 70-99 mg/dl Calcium Level 9.8 8.5-10.1 mg/dl Test 12/03/16 06:35 Range/Units Bedside Glucose 85 70-90 mg/dl
--- NOTE | 2016-12-03 10:04 | Family Medicine Progress Note ---
Progress Note Date of Service Dec 03, 2016. Subjective Pt evaluation today including: conversation w/ patient, physical exam, lab review, review of studies Patient was seen at the bedside. Patient was more awake today. She states that her SOB improved since yesterday. Per nurse she is keep refusing BiPAP at night. Her appetite has decreased too. Constitutional: No fever Respiratory: + cough, + shortness of breath Cardiovascular: No chest pain, No edema Abdomen: No nausea, No pain, No vomiting Musculoskeletal: No muscle pain Medications Current Inpatient Medications Medications (Trade) Dose Ordered Sig/Omkar Route Start Time Stop Time Status Last Admin Dose Admin Acetaminophen (Tylenol Tab) 650 mg Q4H PRN PO 11/21/16 15:45 12/21/16 15:44 12/02/16 13:15 650 MG Atorvastatin Calcium (Lipitor Tab) 40 mg DAILY PO 11/22/16 09:00 12/22/16 08:59 12/03/16 09:03 40 MG Montelukast Sodium (Singulair Tab) 10 mg QPM PO 11/21/16 21:00 12/21/16 20:59 12/02/16 21:23 10 MG Propranolol HCl (Inderal Tab) 80 mg BID PO 11/21/16 21:00 12/21/16 20:59 12/03/16 09:04 80 MG Roflumilast (Daliresp Tab) 500 mcg DAILY PO 11/22/16 09:00 12/22/16 08:59 12/03/16 09:04 500 MCG Senna (Senokot Tab) 8.6 mg QAM PO 11/22/16 09:00 12/22/16 08:59 12/03/16 09:03 8.6 MG Aspirin (Aspirin Chew) 81 mg DAILY PO 11/23/16 09:00 12/23/16 08:59 12/03/16 09:09 81 MG Heparin Sodium (Porcine) (Heparin 10 Unit/ ml 5 ml Flush) 5 ml PRN PRN FLUSH 11/25/16 04:15 12/25/16 04:14 12/03/16 06:20 5 ML Ondansetron HCl (Zofran Tab) 4 mg Q4H PRN PO 11/26/16 00:30 12/26/16 00:29 11/26/16 03:06 4 MG Insulin Aspart (novoLOG ASPART) SLIDING SCALE ACHS SC 11/26/16 08:00 12/26/16 07:59 12/01/16 16:45 6 UNITS Arformoterol Tartrate (Brovana 15MCG/ 2ML Neb Soln) 15 mcg BIDR INH 11/26/16 20:00 12/26/16 19:59 12/03/16 07:34 15 MCG Budesonide (Pulmicort Respules 0.5MG/ 2ML Neb Soln) 0.5 mg BIDR INH 11/26/16 20:00 12/26/16 19:59 12/03/16 07:34 0.5 MG Tiotropium [place] (Spiriva Handihaler Inhaler) 1 puff DAILY INH 11/27/16 09:00 12/27/16 08:59 12/03/16 09:05 1 PUFF Lisinopril (Zestril Tab) 5 mg DAILY PO 11/27/16 09:00 12/27/16 08:59 Future Hold 11/27/16 10:01 5 MG Triamterene/HCTZ 1 cap 1 cap DAILY PO 11/27/16 09:00 12/27/16 08:59 Future Hold 11/27/16 10:02 1 CAP Heparin Sodium/ Dextrose (Heparin 25,000 Unit/500ml D5W) 500 ml @ 30 mls/hr [id number] PRN IV 11/26/16 16:15 12/26/16 16:14 Future Hold 11/30/16 10:36 30 MLS/HR Enteral Nutritional Formula (Boost) 1 can BIDM PO 11/26/16 16:30 12/26/16 16:29 12/01/16 07:44 1 CAN Ipratropium [place] (Atrovent 0.02% 0.5MG/2.5ML [facility]) 0.5 mg Q6R INH 11/28/16 09:00 12/28/16 07:44 12/03/16 01:50 0.5 MG Levalbuterol 1.25 mg 1.25 mg Q6R INH 11/28/16 09:00 12/28/16 07:44 12/03/16 01:50 1.25 MG Diltiazem HCl/ Dextrose (Cardizem Inj/D5 100ml) 125 ml @ 0 mls/hr Q0M PRN IV 11/28/16 08:45 12/28/16 08:44 Future Hold Ipratropium [place] (Atrovent 0.02% 0.5MG/2.5ML Neb) 0.5 mg Q2R PRN INH 11/28/16 09:15 12/28/16 09:14 12/02/16 23:18 0.5 MG Levalbuterol (Xopenex 1.25MG/ 0.5ML Neb) 1.25 mg Q2R PRN INH 11/28/16 09:15 12/28/16 09:14 12/02/16 23:19 1.25 MG Metoprolol Tartrate (Lopressor Iv) 5 mg Q4H PRN IV 11/28/16 19:45 12/28/16 19:44 11/30/16 08:11 5 MG Acetaminophen/ Hydrocodone Bitart 1 tab 1 tab Q4H PRN PO 11/30/16 12:30 12/14/16 12:29 11/30/16 21:46 1 TAB Methylprednisolone Sodium Succinate 40 mg/Syringe 0.64 ml @ 1.5 mls/min Q24H IV 12/02/16 06:00 01/01/17 05:59 12/03/16 06:20 1.5 MLS/MIN Pantoprazole Sodium/Syringe (Protonix Inj/ Syringe) 10 ml @ 5 mls/min BID@0900,2100 IV 12/01/16 21:00 12/31/16 20:59 12/03/16 09:03 5 MLS/MIN Amiodarone HCl (Cordarone Tab) 400 mg BID PO 12/01/16 21:00 12/31/16 20:59 12/03/16 09:04 400 MG Enteral Nutritional Formula (Boost Breeze Nutritional Drink) 1 box BID PO 12/02/16 21:00 01/01/17 20:59 Objective Vital Signs Date Time Temp Pulse Resp B/P Pulse Ox O2 Delivery O2 Flow Rate FiO2 12/03/16 07:48 36.5 68 18 115/72 95 Nasal Cannula 6.0 Humidified Oxygen 12/03/16 07:35 63 28 93 BiPAP/CPAP 12/03/16 05:02 36.5 64 22 125/38 98 BiPAP 6.0 60 12/03/16 04:00 BiPAP 60 12/03/16 02:55 36.5 64 22 125/38 98 Nasal Cannula 2.0 12/03/16 01:50 71 22 93 Nasal Cannula 6.0 12/03/16 00:00 BiPAP 60 12/02/16 23:19 68 22 92 Nasal Cannula 4.0 12/02/16 23:00 36.4 64 20 146/50 93 Nasal Cannula 4.0 12/02/16 21:00 92 BiPAP 6.0 12/02/16 19:40 92 40 12/02/16 19:40 71 24 92 BiPAP/CPAP 40 12/02/16 19:00 36.6 79 28 150/53 94 BiPAP 12/02/16 16:00 BiPAP 60 12/02/16 15:10 36.7 71 30 154/55 92 BiPAP 12/02/16 14:05 65 32 92 BiPAP/CPAP 40 12/02/16 14:05 65 92 40 12/02/16 12:17 67 24 89 Nasal Cannula 5.0 12/02/16 12:00 Nasal Cannula 6.0 12/02/16 11:20 63 92 40 Physical Exam General Appearance: + mild distress Neck: supple, trachea midline Respiratory/Chest: chest non-tender, + respiratory distress, + decreased breath sounds, + crackles, + wheezing Cardiovascular: regular rate, rhythm, no edema Abdomen: normal bowel sounds, non tender, soft Extremities: non-tender, no pedal edema Neurologic/Psychiatric: alert Skin: normal color, warm/dry Laboratory Results Results Past 24 Hours Test 12/02/16 11:28 12/02/16 16:14 12/02/16 20:01 12/03/16 04:45 Range/Units Bedside Glucose 126 136 160 70-90 mg/dl White Blood Count 15.94 4.8-10.8 K/uL Red Blood Count 3.07 4.2-5.4 M/uL Hemoglobin 9.3 12.0-16.0 g/dL Hematocrit 30.3 37-47 % Mean Corpuscular Volume 98.7 80-100 fL Mean Corpuscular Hemoglobin 30.3 25-34 pg Mean Corpuscular Hemoglobin Concent 30.7 32-36 g/dl RDW Standard Deviation 48.1 36.4-46.3 fL RDW Coefficient of Variation 13.5 11.5-14.5 % Platelet Count 326 130-400 K/uL Mean Platelet Volume 9.9 7.4-10.4 fL Activated Partial Thromboplast Time 20.1 21.0-31.0 SECONDS Partial Thromboplastin Ratio 0.8 Sodium Level 146 136-145 mmol/L Potassium Level 3.6 3.5-5.1 mmol/L Chloride Level 95 98-107 mmol/L Carbon Dioxide Level 46 21-32 mmol/L Anion Gap 5.0 3-11 mmol/L Blood Urea Nitrogen 59 7-18 mg/dl Creatinine 0.88 0.60-1.20 mg/dl Est Creatinine Clear Calc Drug Dose 53.3 ml/min Estimated GFR () 73.5 Estimated GFR (Non- 63.4 BUN/Creatinine Ratio 66.9 10-20 Random Glucose 77 70-99 mg/dl Calcium Level 9.8 8.5-10.1 mg/dl Test 12/03/16 06:35 Range/Units Bedside Glucose 85 70-90 mg/dl Assessment and Plan This is a 76 y/o female with hx of COPD on home O2 @ 4L, falls, chronic LE edema and generalized weakness, p/w acute worsening of SOB with acute hypoxic respiratory failure prior to arrival with VBG showing CO2 of 47 requiring immediate intubation. Was successfully extubated on 11/25/16. Patient is currently requiring more frequent BiPAP. * Acute on Chronic hypoxic/hypercapnic Respiratory Failure - It is most likely multifactorial, 2/2 COPD exacerbation, pneumonia and diastolic CHF - Patient is requiring more frequent BiPAP. Dr. Knapp recommended to continue with BiPAP (FiO2 60) as frequently as possible to reduce the work of breathing. - CXR (12/02): Increasing left pleural effusion with progressive left lower lobe atelectasis/consolidation. - Patient was intubated on admission and successfully extubated on 11/25 - ABG 11/29/16 significant for PCO2 78, PO2 53, and HCO3 47 - Patient was evaluated by speech and recommendation aspiration precaution. Additional recommendation noted below - Pulmonary was consulted and appreciate Dr. Knapp's recommendations. * COPD exacerbation - Patient's last FEV1 was 36% (2012) and most likely it is becoming progressively worse - D/keyon Spiriva and Brovana per pulmonary given patient can't use the proper technique for the inhaler - C/w Daliresp, Pulmicort and PO singular 10mg - C/w Atrovent 0.5mg and Xopenex 1.25 q6h scheduled and q2h prn - PO prednisone 20mg X2days then stop - Pulmonology on board and will continue to appreciate Dr. Knapp's recommendations. * Bibasilar consolidation - Sputum culture showed Achromobacter xylosoxidans and H. Flu - BCx (-) - Patient had speech and swallow evaluation on 11/25. Recommendations as follows: 1. Moist mechanical soft diet as tolerated 2. STRICT aspiration precautions, straws OK with small single sips. Fully upright for p.o. intake & for 30 minutes after intake. Supervision while eating. 3. Small bites, small single sips. Frequent rest breaks and slow rate. No talking while eating. Modify diet to pureed if have difficulty. - Complete 7 days course of imipenem/cilastatin per ID recommendation - Continue to appreciate ID recommendations * Paroxysmal Atrial Fibrillation - Patient converted to sinus rhythm - Rate control with PO Amiodarone 400mg BID - Digoxin 0.125 mg M, W and F per Cardiology given amiodarone can increase the level of digoxin (dioxin level 1.7) - Metoprolol 5mg q4h prn - Per Cardiology Dr. Dos Santos no anticoagulant is warranted at this moment given she is in sinus rhythm. 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 Will continue to appreciate his recommendations. * Diastolic CHF with preserved EF - Patient current symptoms and recent Echo suggestive of CHF - Echo (11/22): * The LV is normal in size. * There is normal left ventricular wall thickness. * All left ventricular wall segments are hyperdynamic, with LV EF 70 %. * The left ventricular wall motion is normal. * Dilated RV with normal function. * The left atrium is moderately dilated. * Aortic valve sclerosis mild, without significant aortic valvular stenosis. * Dilated inferior vena cava with reduced collapsibility with sniff indicates an elevated RA pressure of 15 mmHg - CXR (12/02): Increasing left pleural effusion with progressive left lower lobe atelectasis/consolidation. - CXR 11/29/16 shows persistent bilateral pleural effusions with associated bibasal airspace opacities - Schedule Lasix 40mg daily given pleural effusion worsening. - Continue to monitor I/O. Continue to monitor renal function to prevent azotemia * GI bleeding/Rectal bleeding - Stool occult blood is positive - Hgb is trending down, will transfuse if needed - Hold Heparin for now - The etiology is unclear. ?could be 2/2 anticoagulant - Consult GI and recommended IV Protonix 40mg BID. No plan for invasive workup at this time given her multiple co-morbidities. * UTI - UCx was negative. - Completed 7 days course of imipenem/cilastatin * Chronic conditions: Hyperlipidemia: Continue Atorvastatin 40mg daily HTN: Continue Propranolol 80mg BID. Continue to hold Lisinopril and Triamtrene/HCTZ because of hypotension DM: Continue Lantus 10 units daily + sliding scale * DVT Prophylaxis - Hold heparin drip for GI bleed - SCD and TEDs * Code status - Full Code Resident Tracking Resident Involvement: Resident Care Provided Care Provided: Adult Hospital Medicine Reviewed: Pt Seen/Exam by Me History has been on bipap most of the day. continues to not be in bed. Constitutional: denies: fever General Appearance: other (on bipap) Respiratory: decreased breath sounds, crackles Cardiovascular: irregularly irregular Neurologic/Psychiatric: other (lethargic) Assessment/Plan I have reviewed the medical record and performed a history and physical examination of this patient today. I have discussed the case with Dr. Hill. The above note reflects my findings, conclusions, and recommendations.
--- NOTE | 2016-12-03 11:29 | Pulmonary Consultation ---
History General Date of Service: Dec 03, 2016. Stated Complaint: Acute on chronic Respiratory Failure HPI The patient is a 76 year old female who presents to [facility] with complaints of Acute Respiratory Failure. The patient's primary care provider is Yanira Valdez C.R.N.P. 76 y/o female admitted 11/21/2016 in respiratory failure with COPD exacerbation, CAP and KARINA requiring intubation in the ED with a VBG of pH: 7.19/ pCO2:118 corrected to 7.23 and 101. The patient is noted to have severe COPD with an FEV1 of 36% on chronic O2 support and steroid use. The team was able to extubate the patient on 11/25/16. The patient subsequently went into atrial fibrillation with RVR on 11/26/2016 and has been followed by cardiology treated initially with diltiazem and digoxin for rate control been switched to amiodarone with conversion to normal sinus rhythm. Microbiology has been reviewed and are sputum sample has been notable for Achromobacter Xylosoxidans Haemo. Influ. (betalactamase +). Patient continues to have poor progression is actually noted increasing dyspnea over the last 2-3 days with most recent ABG showing notable CO2 retention of 83 mmHg. Today the patient note severe fatigue , dyspnea at rest, mild nonproductive cough but denies: Cardiac chest pain, pleurisy, fever or chills. Microbiology Hx: Sputum (07/15/10) Achromobacter Xylosoxidans Strep Pneumonia Sputum (11/21/16) Achromobacter Xylosoxidans Haemo. Influ. (betalactamase +) Work Up: Cardiac Echo: LV: EF=70% RV: dialted RV, normal function Atrium Left: moderately dilated Right: mildly dilated WBC: 16K and rising over the past 3 days ABG: (12/02/16) 7.38/83/71/48 on BiPAP and FiO2: 60% Aa gradient: 243 CO2 (11/21/16) 47 estimate PaCO2 = 80 RR 18-28 (stimulated to breath) ABX Hx: 1)Imipenem/Cilastin (active) 2)Levofloxacin 3)Ceftriaxone 4)Vancomycin 5)Azithromycin 6)Cefepime Currently active Pulmonary Medications: 1)Solu-Medrol 40mg IV Q24 (50 of Prednisone per day) 2)Xopenex /Atrovent Neb Q2 PRN 3)Xopeneex/Atrovent NEB Q6 laura 4)Spiriva 1 puff QD 5)Brovana neb BID 6)Daliresp 7)Montelukast 10mg QD Historian: patient, family, EMS Review of Systems Constitutional: reports: malaise, weakness Eyes: reports: no symptoms ENT: reports: sore throat Cardiovascular: reports: no symptoms Respiratory: reports: cough, shortness of breath Gastrointestinal: reports: no symptoms Genitourinary - Female: reports: no symptoms Musculoskeletal: reports: myalgias Integumentary: reports: no symptoms Neurologic: reports: no symptoms Psychiatric: reports: anxiety, depression Endocrine: no symptoms Hematologic / Lymphatic: no symptoms Allergic / Immunologic: no symptoms Past Medical History Past Medical History: Cystic thyroid nodule with FGD avidity Atrial fibrillation Per cardiology previously evaluated by EPS and rhythm controlled recommended Chronic kidney disease, stage III COPD (FEV1: 36%) Last PFT 06/28/2013 Oxygen Dependent baseline O2 5L nc prior to admission since 2005 Diabetes mellitus Edema Hyperlipidemia Hypertension Leukocytosis Macrocytic anemia Microalbuminuria PastMedicalHistory_10_twCiteListControlStart Cerumen impaction Dermatitis Past Surgical History: Non-contributory Family History FH: heart disease Father: CAD Mother: Lung disease Social History Current smoker (1-1.5ppd hx) Rarely consumes alcohol Hx Tobacco Use In Past Year?: Yes Smoking Status: Current Every Day Smoker Marital status: Housing status: lives with family Occupational Status: retired Immunizations History of Influenza Vaccine: No History of Tetanus Vaccine?: Unknown History of Pneumococcal: Yes History of Hepatitis B Vaccine: No History of MDRO History of MDRO: No Allergies Coded Allergies: Penicillins (Verified Allergy, Intermediate, HIVES, 08/16/14) Tetracycline (Verified Allergy, Mild, RASH, 08/16/14) Doxycycline (Verified Allergy, Unknown, RASH, 08/16/14) Sulfamethoxazole (Verified Allergy, Unknown, 08/16/14) Replaces SULFAMETHOXAZ Trimethoprim (Verified Allergy, Unknown, 08/16/14) Replaces SULFAMETHOXAZ Cephalosporins (Verified Adverse Reaction, Mild, CEPHALEXIN--GI, 11/22/16) Current Medications Reported Home Medications Medications Dose Route/Sig Max Daily Dose Days Date Category Dose Instructions Multivitamin (Multivitamins) Tab 1 Tab PO DAILY 11/21/16 Reported Triamterene/Hctz 37.5-25MG (Triamterene/HCTZ) 1 Tab Tab 1 Tab PO BID 11/21/16 Reported Prednisone 10 Mg Tab 10 Mg PO DIRECTED 11/21/16 Reported TAKE 1 TABLET DAILY WITH FOOD FOR CHRONIC BRONCHITIS, EXACERBATION TAKE 4 TABLETS DAILY FOR 10 DAYS THEN DECREASE TO 2 TABLETS DAILY FOR 10 DAYS Montelukast Sodium 10 Mg Tab 10 Mg PO QPM 11/21/16 Reported Zestril (Lisinopril) 5 Mg Tab 5 Mg PO DAILY 11/21/16 Reported Levaquin (Levofloxacin) 500 Mg Tab 500 Mg PO DIRECTED 11/21/16 Reported USE PRN WHEN CHEST FEELS TIGHT Duoneb (Ipratropium-Albuterol) 3 Ml Nebu 1 Vial NEB Q4H PRN 11/21/16 Reported Reny Allergy (Fexofenadine Hcl) 180 Mg Tab 180 Mg PO BID 11/21/16 Reported Kp Ferrous Sulfate (Ferrous Sulfate) 325 Mg Tab 325 Mg PO DAILY 11/21/16 Reported Daliresp (Roflumilast) 500 Mcg Tab 500 Mcg PO DAILY 11/21/16 Reported Brovana (Arformoterol Tartrate) 15 Mcg/2 Ml Neb 1 Vial NEB BID 11/21/16 Reported Ipratropium [place] (Ipratropium [place] (Nasal)) 0.03 % Spr 4 Puff INH Q4H PRN 11/21/16 Reported Senna Lax (Senna) 8.6 Mg Tab 8.6 Mg PO QAM 30 08/19/14 Rx Spiriva Handihaler (Tiotropium [place]) 30 Puff/540 Mcg Aerp 2 Puffs INH DAILY 08/16/14 Reported Lipitor (Atorvastatin Calcium) 40 Mg Tab 40 Mg PO DAILY 08/16/14 Reported Oxygen Gas 4 Liters NA UD 06/10/12 Reported 4 LITERS TWICE DAILY Pulmicort Respules 0.5MG/2ML (Budesonide) 0.5 Mg/2 Ml Nebu 2 Ml INH Q12HR 06/10/12 Reported Mucinex Ext Rel (Guaifenesin) 600 Mg Tab 600-1,200 Mg PO BID PRN 06/10/12 Reported Ecotrin Or Generic (Aspirin) 81 Mg Tab 81 Mg PO DAILY 06/10/12 Reported Inderal (Propranolol HCl) 80 Mg Tab 80 Mg PO BID 07/15/10 Reported Physical Physical Exam Vital Signs: Date Time Temp Pulse Resp B/P Pulse Ox O2 Delivery O2 Flow Rate FiO2 12/03/16 08:00 BiPAP 60 12/03/16 07:48 36.5 68 18 115/72 95 Nasal Cannula 6.0 Humidified Oxygen 12/03/16 07:35 63 28 93 BiPAP/CPAP 12/03/16 05:02 36.5 64 22 125/38 98 BiPAP 6.0 60 12/03/16 04:00 BiPAP 60 12/03/16 02:55 36.5 64 22 125/38 98 Nasal Cannula 2.0 12/03/16 01:50 71 22 93 Nasal Cannula 6.0 12/03/16 00:00 BiPAP 60 12/02/16 23:19 68 22 92 Nasal Cannula 4.0 12/02/16 23:00 36.4 64 20 146/50 93 Nasal Cannula 4.0 12/02/16 21:00 92 BiPAP 6.0 12/02/16 19:40 92 40 12/02/16 19:40 71 24 92 BiPAP/CPAP 40 12/02/16 19:00 36.6 79 28 150/53 94 BiPAP 12/02/16 16:00 BiPAP 60 12/02/16 15:10 36.7 71 30 154/55 92 BiPAP 12/02/16 14:05 65 32 92 BiPAP/CPAP 40 12/02/16 14:05 65 92 40 12/02/16 12:17 67 24 89 Nasal Cannula 5.0 12/02/16 12:00 Nasal Cannula 6.0 12/02/16 11:20 63 92 40 General Appearance: severe distress Head: NORMOCEPHALIC, ATRAUMATIC Eyes: PERRLA, NO DISCHARGE, EOMI, SCLERAE NORMAL ENT: NORMAL EAR EXAM, NORMAL NASAL EXAM, NORMAL MOUTH EXAM, NORMAL THROAT EXAM , NORMAL DENTAL EXAM Neck: NO TENDERNESS, TRACHEA MIDLINE, NO STRIDOR Respiratory: rales, wheezing, other (ultrasound: Bilateral B-lines with small pleural effusions at the bases bilaterally) Cardiovasular: REGULAR RATE/RHYTHM, NORMAL S1S2 Abdomen: NON TENDER, NORMAL BOWEL SOUNDS, NO REBOUND, NO MASSES, NO GUARDING Genitourinary - Female: EXTERNAL GENITALIA NORMAL Back: NORMAL INSPECTION, NO MIDLINE TENDERNESS, NO CVA TENDERNESS, NO PARAVERTEBRAL TTP Upper Extremities: NO EDEMA, NO DEFORMITY, NORMAL ROM Lower Extremities: NO EDEMA, NO DEFORMITY, NORMAL ROM Pulses: carotid (R) (1+), carotid (L) (1+), dorsalis pedis (R) (2+), dorsalis pedis (L) (2+), posterior tibial (R) Neuro: ALERT, ORIENTED x 3, global weakness Reflexes: biceps (R) (1+), bicpes (L) (1+), patellar (R) (1+), patellar (L) (1+ ) Babinski Testing: right (downgoing), left (downgoing) Psychiatric: flat affect, depressed Diagnostics Labs Results Past 24 Hours Test 12/02/16 11:28 12/02/16 16:14 12/02/16 20:01 12/03/16 04:45 Range/Units Bedside Glucose 126 136 160 70-90 mg/dl White Blood Count 15.94 4.8-10.8 K/uL Red Blood Count 3.07 4.2-5.4 M/uL Hemoglobin 9.3 12.0-16.0 g/dL Hematocrit 30.3 37-47 % Mean Corpuscular Volume 98.7 80-100 fL Mean Corpuscular Hemoglobin 30.3 25-34 pg Mean Corpuscular Hemoglobin Concent 30.7 32-36 g/dl RDW Standard Deviation 48.1 36.4-46.3 fL RDW Coefficient of Variation 13.5 11.5-14.5 % Platelet Count 326 130-400 K/uL Mean Platelet Volume 9.9 7.4-10.4 fL Activated Partial Thromboplast Time 20.1 21.0-31.0 SECONDS Partial Thromboplastin Ratio 0.8 Sodium Level 146 136-145 mmol/L Potassium Level 3.6 3.5-5.1 mmol/L Chloride Level 95 98-107 mmol/L Carbon Dioxide Level 46 21-32 mmol/L Anion Gap 5.0 3-11 mmol/L Blood Urea Nitrogen 59 7-18 mg/dl Creatinine 0.88 0.60-1.20 mg/dl Est Creatinine Clear Calc Drug Dose 53.3 ml/min Estimated GFR () 73.5 Estimated GFR (Non- 63.4 BUN/Creatinine Ratio 66.9 10-20 Random Glucose 77 70-99 mg/dl Calcium Level 9.8 8.5-10.1 mg/dl Test 12/03/16 06:35 Range/Units Bedside Glucose 85 70-90 mg/dl Diagnostic Radiology Chest x-ray: Multiple chest x-rays have shown hilar fullness, parabronchial cuffing, cephalization and costophrenic blunting of the left hemithorax CT thorax 06/10/2012: Shows large nayana-cardiac fat pad EKG 11/30/2016: Atrial fibrillation with a rate of 134 Impression Assessment and Plan 76-year-old female with severe COPD last FEV1: 36% with acute on chronic respiratory insufficiency/failure: #1 Dyspnea: After reviewing the patient's chart perform physical exam as well as thoracic ultrasound I believe that the patient's dyspnea/chronic hypoxemia/ hypercapnia is multifactorial. COPD: Patient has severe COPD based up only function tests from 06/28/2013 seen most likely progressive in nature. Medications: Agree with continuing Solu-Medrol, Xopenex, Atrovent and Daliresp but will discontinue Spiriva, Brovana and Montelukast Is a patient is unable to perform proper technique for inhalers and her high doses of steroids will cover allergy type symptoms at this time. Noninvasive ventilation: Continue BiPAP at current settings is much as possible to decrease work of breathing. Decompensation: Patient is severely decompensated adding to her current condition. Initiating bedside physical therapy when possible. Cardiac: Patient's history of atrial fibrillation and thoracic ultrasound are consistent with signs of CHF. Patient did have bilateral B-lines as well as small pleural effusions. Diuresis will be difficult with patient's current BUN/creatinine ratio. Initiating albumin over the next 48 hours with Lasix could be helpful as her patient's last albumin was 2.2. ID: Patient has grown out Achromobacter Xylosoxidans Haemo. Influ. ( betalactamase +) during this hospital stay. Patient also grew out Achromobacter Xylosoxidans in 2009 which is a known nosocomial/ immunocompetent respiratory infection. Would continue to monitor closely as patient is decompensating and WBC count is slowly rising at this time. We'll defer to infectious disease team at this time. Thank you for this consultation.
[2016-12-03] MEDS ORDERED: FUROSEMIDE INJ 40 MG in SYRINGE 0 ML IV ONE (11:30)
--- NOTE | 2016-12-03 11:39 | Cardiology Follow-Up ---
Subjective Date of Service: Dec 03, 2016. Pt evaluation today including: conversation w/ patient, physical exam, lab review, review of studies, review of inpatient medication list History of Present Illness This is a 76-year-old woman who has a history of severe COPD (with a long smoking history) as well as diabetes mellitus, hypertension, hypercholesterolemia and anemia. She was admitted with respiratory failure and required intubation, she has now improved and has been extubated. This morning at around 8:00 she went into atrial fibrillation with a rapid heart rate, she was given a 15 mg bolus of diltiazem and she remains in atrial fibrillation with a somewhat rapid heart rate. She denies palpitations. From the cardiovascular standpoint as far as I know she has never had coronary artery disease identified, she has however evidently had atrial fibrillation in the past. Although I cannot find any direct mention of it in the office records she reports having it for many years and "doctoring" for it. By that she tells me that she was on Inderal for her atrial fibrillation, and she tells me she was on aspirin but denies ever being offered an anticoagulant. I can't tell from her history where or when the arrhythmia was diagnosed or how often she had it or its nature (brief or persistent episodes) and although she does say that at time she will have an irregular heart rate that might last days at a time. She had remained in atrial fibrillation therefore I started her on intravenous diltiazem for rate control, which worked fairly well after she received several doses of digoxin. I also started intravenous heparin. She remained unaware of the arrhythmia. She had recurrent atrial fibrillation and we started intravenous amiodarone. After several days she had good control of her arrhythmia, she remained on intravenous heparin however had a drop in hemoglobin and that was discontinued. Social History Smoking Status: Current Every Day Smoker Review of Systems Respiratory: + cough, + shortness of breath Cardiac: No chest pain, No edema Medications Cardiovascular: Item Value Date Time Furosemide 40 mg 12/04/16 0900 (Lasix Tab) QAM/PO Amiodarone HCl 400 mg 12/01/16 2100 (Cordarone Tab) BID/PO 12/03/16 0904 Metoprolol 5 mg 11/28/16 194 Tartrate Q4H PRN/IV 11/30/16 0811 (Lopressor Iv) Aspirin 81 mg 11/23/16 0900 (Aspirin Chew) DAILY/PO 12/03/16 0909 Atorvastatin 40 mg 11/22/16 0900 Calcium DAILY/PO 12/03/16 0903 (Lipitor Tab) Objective Vital Signs Past 12 Hours Date Time Temp Pulse Resp B/P Pulse Ox O2 Delivery O2 Flow Rate FiO2 12/03/16 11:33 36.6 66 19 120/53 97 BiPAP 12/03/16 08:00 BiPAP 60 12/03/16 07:48 36.5 68 18 115/72 95 Nasal Cannula 6.0 Humidified Oxygen 12/03/16 07:35 63 28 93 BiPAP/CPAP 12/03/16 05:02 36.5 64 22 125/38 98 BiPAP 6.0 60 12/03/16 04:00 BiPAP 60 12/03/16 02:55 36.5 64 22 125/38 98 Nasal Cannula 2.0 12/03/16 01:50 71 22 93 Nasal Cannula 6.0 12/03/16 00:00 BiPAP 60 Last Recorded Weight-Kilograms: 75.700 Intake & Output 8-Hour Column 12/02/16 12/03/16 12/03/16 16:00 00:00 08:00 Intake Total 200 ml 200 ml Output Total 300 ml 1400 ml 350 ml Balance -100 ml -1200 ml -350 ml 24-Hour Column 12/03/16 08:00 Intake Total 400 ml Output Total 2050 ml Balance -1650 ml Physical Exam Constitutional: Level of Distress: NAD Lungs: Respiratory effort: good air movement Auscultation: decreased breath sounds Cardiovascular: Heart Auscultation: RRR, no murmurs, no rubs, no gallops Peripheral Pulses: Bruits: none appreciated Extremities: no edema Data Laboratory Results: Last 24 Hours Test 12/02/16 16:14 12/02/16 20:01 12/03/16 04:45 12/03/16 06:35 Bedside Glucose 136 mg/dl 160 mg/dl 85 mg/dl White Blood Count 15.94 K/uL Red Blood Count 3.07 M/uL Hemoglobin 9.3 g/dL Hematocrit 30.3 % Mean Corpuscular Volume 98.7 fL Mean Corpuscular Hemoglobin 30.3 pg Mean Corpuscular Hemoglobin Concent 30.7 g/dl RDW Standard Deviation 48.1 fL RDW Coefficient of Variation 13.5 % Platelet Count 326 K/uL Mean Platelet Volume 9.9 fL Activated Partial Thromboplast Time 20.1 SECONDS Partial Thromboplastin Ratio 0.8 Sodium Level 146 mmol/L Potassium Level 3.6 mmol/L Chloride Level 95 mmol/L Carbon Dioxide Level 46 mmol/L Anion Gap 5.0 mmol/L Blood Urea Nitrogen 59 mg/dl Creatinine 0.88 mg/dl Est Creatinine Clear Calc Drug Dose 53.3 ml/min Estimated GFR () 73.5 Estimated GFR (Non- 63.4 BUN/Creatinine Ratio 66.9 Random Glucose 77 mg/dl Calcium Level 9.8 mg/dl Telemetry reviewed: No atrial fibrillation in the past 24 hours Assessment and Plan #1. Atrial fibrillation: Her and her are certainly familiar with the term atrial fibrillation and tell me that she had it diagnosed many years ago. I can't find specifics about it, but she has never been offered an anticoagulant but she was on Inderal presumably for the arrhythmia. She probably has paroxysmal atrial fibrillation based on this but I can't be sure. Her heart rate was fairly well controlled on diltiazem and digoxin, although her blood pressure was borderline. Amiodarone appeared to convert the rhythm ( or at least the arrhythmia converted to sinus rhythm on amiodarone intravenously ) but she continued to have atrial fibrillation for several days. However more recently (more than 48 hours) she has had no further atrial fibrillation and remains on amiodarone. She started oral amiodarone yesterday and I discontinued the IV amiodarone, that may cause recurrence of her atrial fibrillation as it can take some time to load orally. She is on digoxin as well for rate control, her digoxin level 12/02/2016 was 1.7, amiodarone does raise digoxin levels. We should probably reduce the dose but perhaps not stop it. I will convert her to 0.125 mg Wednesday and Wednesday. #2. Anticoagulation: At the moment we don't need anticoagulation since she is in sinus rhythm, over the long run from the cardiovascular standpoint it would be better for her to be on an anticoagulant but it may be too risky. We do not need to make that determination at this time. Thank you for allowing me to participate in her care.
[2016-12-03] MEDS ORDERED: NURSING VERBAL MED ORDER ONE (12:15)
[2016-12-03] MEDS ORDERED: ALTEPLASE, RECOMBINANT 1 MG/ML 2 ML VIAL IV ONE (12:30)
[2016-12-03] MEDS ORDERED: WATER, STERILE FOR INJ 10 ML VIAL IV ONE (12:30)
[2016-12-03] MEDS: MONTELUKAST SOD 10 MG TAB PO SCH (21:52)
[2016-12-03] MEDS: PANTOprazole SOD 40 MG TAB PO SCH (21:54)
[2016-12-04] VITALS (15 sets, daily range): BP systolic 113–141; BP diastolic 43–55; PULSE 60–72; TEMP 36.9–37.5; O2SAT 90–98
[2016-12-04] MEDS: IPRATROPIUM BROMIDE NEB SOLN 0.02% 2.5 ML VIAL INH SCH ×4 (02:21→19:07)
[2016-12-04] MEDS: LEVALBUTEROL 1.25MG/0.5ML NEB INH SCH ×4 (02:21→19:07)
[2016-12-04 05:38] LABS: HEMATOCRIT 29.2 % (37-47); MEAN CELL VOLUME 100.7 fL (80-100); MEAN CORPUSCULAR HGB CONC 29.8 g/dl (32-36); MEAN PLATELET VOLUME 9.6 fL (7.4-10.4); PLATELET COUNT 311 K/uL (130-400); WHITE BLOOD COUNT 20.32 K/uL (4.8-10.8)
[2016-12-04 05:58] LABS: PARTIAL THROMBOPLASTIN RATIO 0.8
[2016-12-04 06:06] LABS: BUN/CREATININE RATIO 64.3 (10-20); CALCIUM 9.5 mg/dl (8.5-10.1); CREATININE 0.95 mg/dl (0.60-1.20); POTASSIUM 3.2 mmol/L (3.5-5.1)
[2016-12-04] MEDS: ARFORMOTEROL TART 15MCG/2ML VIAL INH SCH ×2 (07:03→19:07)
[2016-12-04] MEDS: BUDESONIDE 0.5 MG/2 ML VIAL (PULMICORT) INH SCH ×2 (07:04→19:07)
[2016-12-04] MEDS ORDERED: POTASSIUM CHLORIDE 20 MEQ TABCR PO ONE (07:15)
[2016-12-04] MEDS: INSULIN ASPART 100 UNITS/ML 3 ML PEN SC SCH ×4 (08:43→21:00)
[2016-12-04] MEDS: BOOST VANILLA PO SCH ×4 (08:44→17:33)
[2016-12-04] MEDS: BOOST BREEZE NUTRITION DRINK 1 BOX PO SCH ×2 (08:45→21:05)
[2016-12-04] MEDS: ATORVASTATIN 40 MG TAB PO SCH (08:46)
[2016-12-04] MEDS: PROPRANOLOL HCL 80 MG TAB PO SCH ×2 (08:46→21:06)
[2016-12-04] MEDS: AMIODARONE 200 MG TAB PO SCH ×2 (08:46→21:05)
[2016-12-04] MEDS: SENNA 8.6 MG TAB PO SCH (08:47)
[2016-12-04] MEDS: PANTOprazole SOD 40 MG TAB PO SCH ×2 (08:47→21:05)
[2016-12-04] MEDS: TIOTROPIUM BROMIDE 5 PUFF/90 MCG INH INH SCH (08:48)
[2016-12-04] MEDS: ROFLUMILAST 500 MCG TAB PO SCH (08:48)
[2016-12-04] MEDS: ASPIRIN 81 MG CHEW PO SCH (08:49)
[2016-12-04] MEDS ORDERED: FUROSEMIDE 40 MG TAB PO SCH (09:00)
[2016-12-04] MEDS ORDERED: POTASSIUM CHLORIDE 20 MEQ TABCR PO SCH (10:00)
[2016-12-04] MEDS ORDERED: LEVOFLOXACIN CONSULT ACTIVE PRN (10:45)
--- NOTE | 2016-12-04 11:02 | Infectious Disease Progress Nt ---
Progress Note Date of Service Dec 04, 2016. Subjective Pt evaluation today including: conversation w/ patient, physical exam, chart review, lab review, review of studies, review of inpatient medication list Patient is not feeling well at all today. She is very lethargic. She nods her head and states that her breathing is not good this morning and her stomach hurts. WBC count elevated to 20.32 today. Most recent CXR showed progressive left lower lobe consolidation and pleural effusion. Carbon dioxide level up to 53 today. All Other Systems: Reviewed and Negative Medications Current Inpatient Medications Medications (Trade) Dose Ordered Sig/Omkar Route Start Time Stop Time Status Last Admin Dose Admin Acetaminophen (Tylenol Tab) 650 mg Q4H PRN PO 11/21/16 15:45 12/21/16 15:44 12/02/16 13:15 650 MG Atorvastatin Calcium (Lipitor Tab) 40 mg DAILY PO 11/22/16 09:00 12/22/16 08:59 12/04/16 08:46 40 MG Montelukast Sodium (Singulair Tab) 10 mg QPM PO 11/21/16 21:00 12/21/16 20:59 12/03/16 21:52 10 MG Propranolol HCl (Inderal Tab) 80 mg BID PO 11/21/16 21:00 12/21/16 20:59 12/04/16 08:46 80 MG Roflumilast (Daliresp Tab) 500 mcg DAILY PO 11/22/16 09:00 12/22/16 08:59 12/04/16 08:48 500 MCG Senna (Senokot Tab) 8.6 mg QAM PO 11/22/16 09:00 12/22/16 08:59 12/04/16 08:47 8.6 MG Aspirin (Aspirin Chew) 81 mg DAILY PO 11/23/16 09:00 12/23/16 08:59 12/04/16 08:49 81 MG Heparin Sodium (Porcine) (Heparin 10 Unit/ ml 5 ml Flush) 5 ml PRN PRN FLUSH 11/25/16 04:15 12/25/16 04:14 12/03/16 14:21 5 ML Ondansetron HCl (Zofran Tab) 4 mg Q4H PRN PO 11/26/16 00:30 12/26/16 00:29 11/26/16 03:06 4 MG Insulin Aspart (novoLOG ASPART) SLIDING SCALE ACHS SC 11/26/16 08:00 12/26/16 07:59 12/03/16 21:41 1 UNITS Arformoterol Tartrate (Brovana 15MCG/ 2ML Neb Soln) 15 mcg BIDR INH 11/26/16 20:00 12/26/16 19:59 12/04/16 07:03 15 MCG Budesonide (Pulmicort Respules 0.5MG/ 2ML Neb Soln) 0.5 mg BIDR INH 11/26/16 20:00 12/26/16 19:59 12/04/16 07:04 0.5 MG Tiotropium [place] (Spiriva Handihaler Inhaler) 1 puff DAILY INH 11/27/16 09:00 12/27/16 08:59 12/04/16 08:48 1 PUFF Lisinopril (Zestril Tab) 5 mg DAILY PO 11/27/16 09:00 12/27/16 08:59 Future Hold 11/27/16 10:01 5 MG Triamterene/HCTZ 1 cap 1 cap DAILY PO 11/27/16 09:00 12/27/16 08:59 Future Hold 11/27/16 10:02 1 CAP Heparin Sodium/ Dextrose (Heparin 25,000 Unit/500ml D5W) 500 ml @ 30 mls/hr [id number] PRN IV 11/26/16 16:15 12/26/16 16:14 Future Hold 11/30/16 10:36 30 MLS/HR Enteral Nutritional Formula (Boost) 1 can BIDM PO 11/26/16 16:30 12/26/16 16:29 12/01/16 07:44 1 CAN Ipratropium [place] (Atrovent 0.02% 0.5MG/2.5ML [facility]) 0.5 mg Q6R INH 11/28/16 09:00 12/28/16 07:44 12/04/16 07:03 0.5 MG Levalbuterol 1.25 mg 1.25 mg Q6R INH 11/28/16 09:00 12/28/16 07:44 12/04/16 07:03 1.25 MG Diltiazem HCl/ Dextrose (Cardizem Inj/D5 100ml) 125 ml @ 0 mls/hr Q0M PRN IV 11/28/16 08:45 12/28/16 08:44 Future Hold Ipratropium [place] (Atrovent 0.02% 0.5MG/2.5ML Neb) 0.5 mg Q2R PRN INH 11/28/16 09:15 12/28/16 09:14 12/02/16 23:18 0.5 MG Levalbuterol (Xopenex 1.25MG/ 0.5ML Neb) 1.25 mg Q2R PRN INH 11/28/16 09:15 12/28/16 09:14 12/02/16 23:19 1.25 MG Metoprolol Tartrate (Lopressor Iv) 5 mg Q4H PRN IV 11/28/16 19:45 12/28/16 19:44 11/30/16 08:11 5 MG Acetaminophen/ Hydrocodone Bitart ([place] 5/325 Tab) 1 tab Q4H PRN PO 11/30/16 12:30 12/14/16 12:29 11/30/16 21:46 1 TAB Amiodarone HCl (Cordarone Tab) 400 mg BID PO 12/01/16 21:00 12/31/16 20:59 12/04/16 08:46 400 MG Enteral Nutritional Formula (Boost Breeze Nutritional Drink) 1 box BID PO 12/02/16 21:00 01/01/17 20:59 Prednisone (PredniSONE TAB) 20 mg DAILY PO 12/04/16 09:00 12/05/16 09:01 12/04/16 08:46 20 MG Furosemide (Lasix Tab) 40 mg QAM PO 12/04/16 09:00 01/03/17 08:59 12/04/16 08:47 40 MG Pantoprazole Sodium 40 mg 40 mg BID PO 12/03/16 21:00 01/02/17 20:59 12/04/16 08:47 40 MG Imipenem/ Cilastatin Sodium 500 mg/Dextrose 110 ml @ 100 mls/hr Q8H IV 12/04/16 12:00 12/11/16 11:59 UNV Levofloxacin/Prmx (Levaquin / D5W/ Premixed D5W) 150 ml @ 100 mls/hr Q48H IV 12/04/16 11:00 12/11/16 10:59 Levofloxacin (Consult) 1 ea UD PRN N/A 12/04/16 10:45 01/03/17 10:44 Objective Vital Signs Date Time Temp Pulse Resp B/P Pulse Ox O2 Delivery O2 Flow Rate FiO2 12/04/16 08:00 BiPAP 60 12/04/16 07:05 69 90 60 12/04/16 07:03 69 24 90 BiPAP/CPAP 60 12/04/16 07:00 37.1 70 20 113/44 90 BiPAP 12/04/16 05:45 68 92 60 12/04/16 04:00 BiPAP 60 12/04/16 02:50 37.1 60 20 115/48 90 BiPAP 12/04/16 02:22 63 93 60 12/04/16 02:21 63 24 93 BiPAP/CPAP 60 12/04/16 00:00 BiPAP 60 12/03/16 23:13 65 95 60 12/03/16 23:12 36.9 71 22 133/47 98 BiPAP 12/03/16 20:00 BiPAP 60 12/03/16 19:05 37.2 68 28 128/38 96 BiPAP 12/03/16 19:05 64 96 60 12/03/16 19:05 64 24 96 BiPAP/CPAP 60 12/03/16 16:00 BiPAP 60 12/03/16 15:10 36.5 64 32 148/46 95 Nasal Cannula 6.0 12/03/16 14:10 66 22 92 Nasal Cannula 6.0 12/03/16 12:00 BiPAP 60 12/03/16 11:33 36.6 66 19 120/53 97 BiPAP Physical Exam General Appearance: + moderate distress (respiratory) Eyes: normal inspection, sclerae normal ENT: hearing grossly normal Neck: supple, trachea midline Respiratory/Chest: + respiratory distress, + pertinent finding (coarse breath sounds heard throughout bilateral lungs) Cardiovascular: regular rate, rhythm Abdomen: normal bowel sounds, non tender, soft Neurologic/Psychiatric: + pertinent finding (lethargic) Skin: normal color, warm/dry, no rash Laboratory Results CHEST ONE VIEW PORTABLE CLINICAL HISTORY: Worsening shortness of breath COMPARISON STUDY: 11/29/2016 FINDINGS: The cardiac and mediastinal contours remain stable. The right-sided PICC catheter remains unchanged in position. There is an increasing left pleural effusion with worsening left lower lobe atelectasis/consolidation. There are stable right basilar airspace opacities. There is a suspected small right-sided pulmonic pleural effusion.[ IMPRESSION: Increasing left pleural effusion with progressive left lower lobe atelectasis/consolidation. Last 24 Hours Test 12/03/16 11:46 12/03/16 16:20 12/03/16 20:13 12/04/16 04:45 Bedside Glucose 137 mg/dl 134 mg/dl 217 mg/dl White Blood Count 20.32 K/uL Red Blood Count 2.90 M/uL Hemoglobin 8.7 g/dL Hematocrit 29.2 % Mean Corpuscular Volume 100.7 fL Mean Corpuscular Hemoglobin 30.0 pg Mean Corpuscular Hemoglobin Concent 29.8 g/dl RDW Standard Deviation 49.0 fL RDW Coefficient of Variation 13.3 % Platelet Count 311 K/uL Mean Platelet Volume 9.6 fL Activated Partial Thromboplast Time 20.1 SECONDS Partial Thromboplastin Ratio 0.8 Sodium Level 146 mmol/L Potassium Level 3.2 mmol/L Chloride Level 94 mmol/L Carbon Dioxide Level 53 mmol/L Anion Gap -1.0 mmol/L Blood Urea Nitrogen 61 mg/dl Creatinine 0.95 mg/dl Est Creatinine Clear Calc Drug Dose 48.8 ml/min Estimated GFR () 67.0 Estimated GFR (Non- 57.8 BUN/Creatinine Ratio 64.3 Random Glucose 95 mg/dl Calcium Level 9.5 mg/dl Test 12/04/16 06:59 12/04/16 10:44 Bedside Glucose 102 mg/dl 109 mg/dl Assessment and Plan (1) Hyperglycemia Status: Acute (2) Chronic intermittent steroid use (3) KARINA (acute kidney injury) (4) COPD exacerbation Status: Acute (5) Acute respiratory failure Patient with SOB and productive cough with Achromobacter xylosoxidans and H. Flu growing in sputum culture. Previously completed 7 days of IV Primaxin, now with worsening respiratory status, increased leukocytosis, and progressive left lower lobe infiltrate. Discussed patient with Dr. Rojas- will restart IV Primaxin and also add Levaquin to further cover for atypicals with multiple patient allergies. We will follow. PROVIDER ADDENDUM: Pt. reviewed with Ms. Estrada. Agree with above assessment.
[2016-12-04] MEDS: LEVOFLOXACIN / D5W 750 MG in PREMIXED IN D5W 150 ML IV SCH (11:19)
[2016-12-04] MEDS: IPRATROPIUM BROMIDE NEB SOLN 0.02% 2.5 ML VIAL INH PRN (11:21)
[2016-12-04] MEDS: LEVALBUTEROL 1.25MG/0.5ML NEB INH PRN (11:21)
--- NOTE | 2016-12-04 12:09 | DIAGNOSTIC IMAGING REPORT ---
CHEST ONE VIEW PORTABLE CLINICAL HISTORY: Respiratory failure, pleural effusion COMPARISON STUDY: 12/02/2016 FINDINGS: The right-sided PICC catheter remains unchanged in position. There are persistent bilateral pleural effusions, left greater than right.. There are associated bilateral airspace opacities.[ There is no failure. IMPRESSION: Resistant bilateral pleural effusions left greater than right with associated bibasal airspace opacities. Electronically signed by: Boo Kaplan M.D. 12/04/2016 12:07 PM Dictated Date/Time: 12/04/2016 12:05 PM
[2016-12-04] MEDS: IMIPENEM/CILASTATIN IV 500 MG in DEXTROSE 5% 100ML 100 ML IV SCH ×2 (12:16→21:09)
--- NOTE | 2016-12-04 13:00 | Pulmonology Progress Note ---
Pulmonary Progress Note Date of Service Dec 04, 2016. Attending Dr. Ra Jackson The patient is a 76 year old female who presents to [facility] with complaints of Acute Respiratory Failure. The patient's primary care provider is Yaniar Valdez C.R.N.P. 76 y/o female admitted 11/21/2016 in respiratory failure with COPD exacerbation, CAP and KARINA requiring intubation in the ED with a VBG of pH: 7.19/ pCO2:118 corrected to 7.23 and 101. The patient is noted to have severe COPD with an FEV1 of 36% on chronic O2 support and steroid use. The team was able to extubate the patient on 11/25/16. The patient subsequently went into atrial fibrillation with RVR on 11/26/2016 and has been followed by cardiology treated initially with diltiazem and digoxin for rate control been switched to amiodarone with conversion to normal sinus rhythm. Microbiology has been reviewed and are sputum sample has been notable for Achromobacter Xylosoxidans Haemo. Influ. (betalactamase +). Patient continues to have poor progression is actually noted increasing dyspnea over the last 2-3 days with most recent ABG showing notable CO2 retention of 83 mmHg. The patient was examined today and is very tired and lethargic. When I evaluated the patient she had a nebulizer in place. She reported that she just did not feel well. She denies any significant cough or congestion at this time. She just feels that she cannot get her air in. She feels short of breath. She states that she is not really having any pain at this time. She just states that she is uncomfortable. She isn't really able to give much more history. She was on BiPap yesterday and last evening and most of the morning. However, her CO2 (serum) has elevated. She has not had any current imaging to see if the pleural effusion has increased. ID did see her today and because of her worsening symptoms and elevating WBC, she was started on Imipenem and Levaquin. Microbiology Hx: Sputum (07/15/10) Achromobacter Xylosoxidans Strep Pneumonia Sputum (11/21/16) Achromobacter Xylosoxidans Haemo. Influ. (betalactamase +) Work Up: Cardiac Echo: LV: EF=70% RV: dialted RV, normal function [facility] Left: moderately dilated Right: mildly dilated WBC: 16K and rising over the past 3 days ABG: (12/02/16) 7.38/83/71/48 on BiPAP and FiO2: 60% Aa gradient: 243 CO2 (11/21/16) 47 estimate PaCO2 = 80 RR 18-28 (stimulated to breath) CO2 (12-04-16) 53 ABX Hx: 1)Imipenem/Cilastin (active) 2)Levofloxacin (active) 3)Ceftriaxone 4)Vancomycin 5)Azithromycin 6)Cefepime Currently active Pulmonary Medications: 1)Solu-Medrol 40mg IV Q24 (50 of Prednisone per day) 2)Xopenex /Atrovent Neb Q2 PRN 3)Xopeneex/Atrovent NEB Q6 omkar 4)Daliresp 5)Montelukast 10mg QD Historian: patient, nursing staff Objective Head: NORMOCEPHALIC, ATRAUMATIC Eyes: PERRLA, NO DISCHARGE, EOMI, SCLERAE NORMAL ENT: NORMAL EAR EXAM, NORMAL NASAL EXAM, NORMAL MOUTH EXAM, NORMAL THROAT EXAM Neck: NO TENDERNESS, TRACHEA MIDLINE, NO STRIDOR Respiratory: rales, wheezing, Cardiovasular: REGULAR RATE/RHYTHM, NORMAL S1S2 Abdomen: NON TENDER, NORMAL BOWEL SOUNDS, NO REBOUND, NO MASSES, NO GUARDING Genitourinary - Female: EXTERNAL GENITALIA NORMAL Back: NORMAL INSPECTION, NO MIDLINE TENDERNESS, NO CVA TENDERNESS, NO PARAVERTEBRAL TTP Upper Extremities: NO EDEMA, NO DEFORMITY, NORMAL ROM Lower Extremities: NO EDEMA, NO DEFORMITY, NORMAL ROM Pulses: carotid (R) (1+), carotid (L) (1+), dorsalis pedis (R) (2+), dorsalis pedis (L) (2+), posterior tibial (R) Neuro: ALERT, ORIENTED x 3, global weakness Reflexes: biceps (R) (1+), bicpes (L) (1+), patellar (R) (1+), patellar (L) (1+ ) Babinski Testing: right (downgoing), left (downgoing) Psychiatric: flat affect, depressed Assessment & Plan #1 Dyspnea: After reviewing the patient's chart perform physical exam as well as thoracic ultrasound I believe that the patient's dyspnea/chronic hypoxemia/ hypercapnia is multifactorial. COPD: Patient CO2 retention is slowly worsening. At this time, the patient will be placed back on BiPap. Case was discussed with Dr Knapp. I would like for her to have reimaging and see if the pleural effusion has worsened. She will have a bedside xray done. I would also like for the patient to have an ABG to evaluate her CO2 level. Will continue to follow at this time. Cardiac: Patient's history of atrial fibrillation and thoracic ultrasound are consistent with signs of CHF. Patient did have bilateral B-lines as well as small pleural effusions. Diuresis will be difficult with patient's current BUN/creatinine ratio. Initiating albumin over the next 48 hours with Lasix could be helpful as her patient's last albumin was 2.2. ID: Patient has grown out Achromobacter Xylosoxidans Haemo. Influ. ( betalactamase +) during this hospital stay. Patient also grew out Achromobacter Xylosoxidans in 2009 which is a known nosocomial/ immunocompetent respiratory infection. Would continue to monitor closely as patient is decompensating and WBC count is slowly rising at this time. ID started her on Levaquin and Imipenem. Case reviewed and plan agreed with. Data Medications: Current Inpatient Medications Medications (Trade) Dose Ordered Sig/Omkar Route Start Time Stop Time Status Last Admin Dose Admin Acetaminophen (Tylenol Tab) 650 mg Q4H PRN PO 11/21/16 15:45 12/21/16 15:44 12/02/16 13:15 650 MG Atorvastatin Calcium (Lipitor Tab) 40 mg DAILY PO 11/22/16 09:00 12/22/16 08:59 12/04/16 08:46 40 MG Montelukast Sodium (Singulair Tab) 10 mg QPM PO 11/21/16 21:00 12/21/16 20:59 12/03/16 21:52 10 MG Propranolol HCl (Inderal Tab) 80 mg BID PO 11/21/16 21:00 12/21/16 20:59 12/04/16 08:46 80 MG Roflumilast (Daliresp Tab) 500 mcg DAILY PO 11/22/16 09:00 12/22/16 08:59 12/04/16 08:48 500 MCG Senna (Senokot Tab) 8.6 mg QAM PO 11/22/16 09:00 12/22/16 08:59 12/04/16 08:47 8.6 MG Aspirin (Aspirin Chew) 81 mg DAILY PO 11/23/16 09:00 12/23/16 08:59 12/04/16 08:49 81 MG Heparin Sodium (Porcine) (Heparin 10 Unit/ ml 5 ml Flush) 5 ml PRN PRN FLUSH 11/25/16 04:15 12/25/16 04:14 12/03/16 14:21 5 ML Ondansetron HCl (Zofran Tab) 4 mg Q4H PRN PO 11/26/16 00:30 12/26/16 00:29 11/26/16 03:06 4 MG Insulin Aspart (novoLOG ASPART) SLIDING SCALE ACHS SC 11/26/16 08:00 12/26/16 07:59 12/03/16 21:41 1 UNITS Arformoterol Tartrate (Brovana 15MCG/ 2ML Neb Soln) 15 mcg BIDR INH 11/26/16 20:00 12/26/16 19:59 12/04/16 07:03 15 MCG Budesonide (Pulmicort Respules 0.5MG/ 2ML Neb Soln) 0.5 mg BIDR INH 11/26/16 20:00 12/26/16 19:59 12/04/16 07:04 0.5 MG Tiotropium [place] (Spiriva Handihaler Inhaler) 1 puff DAILY INH 11/27/16 09:00 12/27/16 08:59 12/04/16 08:48 1 PUFF Lisinopril (Zestril Tab) 5 mg DAILY PO 11/27/16 09:00 12/27/16 08:59 Future Hold 11/27/16 10:01 5 MG Triamterene/HCTZ 1 cap 1 cap DAILY PO 11/27/16 09:00 12/27/16 08:59 Future Hold 11/27/16 10:02 1 CAP Heparin Sodium/ Dextrose (Heparin 25,000 Unit/500ml D5W) 500 ml @ 30 mls/hr [id number] PRN IV 11/26/16 16:15 12/26/16 16:14 Future Hold 11/30/16 10:36 30 MLS/HR Enteral Nutritional Formula (Boost) 1 can BIDM PO 11/26/16 16:30 4/29/17 16:29 12/01/16 07:44 1 CAN Ipratropium [place] (Atrovent 0.02% 0.5MG/2.5ML Neb) 0.5 mg Q6R INH 11/28/16 09:00 12/28/16 07:44 12/04/16 07:03 0.5 MG Levalbuterol 1.25 mg 1.25 mg Q6R INH 11/28/16 09:00 12/28/16 07:44 12/04/16 07:03 1.25 MG Diltiazem HCl/ Dextrose (Cardizem Inj/D5 100ml) 125 ml @ 0 mls/hr Q0M PRN IV 11/28/16 08:45 12/28/16 08:44 Future Hold Ipratropium [place] (Atrovent 0.02% 0.5MG/2.5ML Neb) 0.5 mg Q2R PRN INH 11/28/16 09:15 12/28/16 09:14 12/04/16 11:21 0.5 MG Levalbuterol (Xopenex 1.25MG/ 0.5ML Neb) 1.25 mg Q2R PRN INH 11/28/16 09:15 12/28/16 09:14 12/04/16 11:21 1.25 MG Metoprolol Tartrate (Lopressor Iv) 5 mg Q4H PRN IV 11/28/16 19:45 12/28/16 19:44 11/30/16 08:11 5 MG Acetaminophen/ Hydrocodone Bitart ([place] 5/325 Tab) 1 tab Q4H PRN PO 11/30/16 12:30 12/14/16 12:29 11/30/16 21:46 1 TAB Amiodarone HCl (Cordarone Tab) 400 mg BID PO 12/01/16 21:00 12/31/16 20:59 12/04/16 08:46 400 MG Enteral Nutritional Formula (Boost Breeze Nutritional Drink) 1 box BID PO 12/02/16 21:00 01/01/17 20:59 Prednisone (PredniSONE TAB) 20 mg DAILY PO 12/04/16 09:00 12/05/16 09:01 12/04/16 08:46 20 MG Furosemide (Lasix Tab) 40 mg QAM PO 12/04/16 09:00 01/03/17 08:59 12/04/16 08:47 40 MG Pantoprazole Sodium 40 mg 40 mg BID PO 12/03/16 21:00 01/02/17 20:59 12/04/16 08:47 40 MG Imipenem/ Cilastatin Sodium 500 mg/Dextrose 110 ml @ 100 mls/hr Q8H IV 12/04/16 12:00 12/11/16 11:59 Levofloxacin/Prmx (Levaquin / D5W/ Premixed D5W) 150 ml @ 100 mls/hr Q48H IV 12/04/16 11:00 12/11/16 10:59 Levofloxacin (Consult) 1 ea UD PRN N/A 12/04/16 10:45 01/03/17 10:44 I & O: 24-Hour Column 12/04/16 08:00 Intake Total 250 ml Output Total 1150 ml Balance -900 ml Vital Signs: Date Time Temp Pulse Resp B/P Pulse Ox O2 Delivery O2 Flow Rate FiO2 12/04/16 11:46 66 92 60 12/04/16 11:31 37.5 63 24 123/43 91 Nasal Cannula 5.0 12/04/16 11:21 68 26 91 Nasal Cannula 5.0 60 12/04/16 08:00 BiPAP 60 12/04/16 07:05 69 90 60 12/04/16 07:03 69 24 90 BiPAP/CPAP 60 12/04/16 07:00 37.1 70 20 113/44 90 BiPAP 12/04/16 05:45 68 92 60 12/04/16 04:00 BiPAP 60 12/04/16 02:50 37.1 60 20 115/48 90 BiPAP 12/04/16 02:22 63 93 60 12/04/16 02:21 63 24 93 BiPAP/CPAP 60 12/04/16 00:00 BiPAP 60 12/03/16 23:13 65 95 60 12/03/16 23:12 36.9 71 22 133/47 98 BiPAP 12/03/16 20:00 BiPAP 60 12/03/16 19:05 37.2 68 28 128/38 96 BiPAP 12/03/16 19:05 64 96 60 12/03/16 19:05 64 24 96 BiPAP/CPAP 60 12/03/16 16:00 BiPAP 60 12/03/16 15:10 36.5 64 32 148/46 95 Nasal Cannula 6.0 12/03/16 14:10 66 22 92 Nasal Cannula 6.0 12/03/16 12:00 BiPAP 60 Laboratory Results: Last 24 Hours Test 12/03/16 16:20 12/03/16 20:13 12/04/16 04:45 12/04/16 06:59 Bedside Glucose 134 mg/dl 217 mg/dl 102 mg/dl White Blood Count 20.32 K/uL Red Blood Count 2.90 M/uL Hemoglobin 8.7 g/dL Hematocrit 29.2 % Mean Corpuscular Volume 100.7 fL Mean Corpuscular Hemoglobin 30.0 pg Mean Corpuscular Hemoglobin Concent 29.8 g/dl RDW Standard Deviation 49.0 fL RDW Coefficient of Variation 13.3 % Platelet Count 311 K/uL Mean Platelet Volume 9.6 fL Activated Partial Thromboplast Time 20.1 SECONDS Partial Thromboplastin Ratio 0.8 Sodium Level 146 mmol/L Potassium Level 3.2 mmol/L Chloride Level 94 mmol/L Carbon Dioxide Level 53 mmol/L Anion Gap -1.0 mmol/L Blood Urea Nitrogen 61 mg/dl Creatinine 0.95 mg/dl Est Creatinine Clear Calc Drug Dose 48.8 ml/min Estimated GFR () 67.0 Estimated GFR (Non- 57.8 BUN/Creatinine Ratio 64.3 Random Glucose 95 mg/dl Calcium Level 9.5 mg/dl Test 12/04/16 10:44 12/04/16 11:41 Bedside Glucose 109 mg/dl
[2016-12-04 13:34] LABS: HEMATOCRIT 27.8 % (37-47)
[2016-12-04 14:33] LABS: ARTERIAL BLD GAS O2 SATURATION 95.8 % (90-95); ARTERIAL BLOOD GAS BASE EXCESS 21.3 mEq/L (-9-1.8); ARTERIAL BLOOD GAS HCO3 49 mmol/L (19-24); ARTERIAL BLOOD GAS PO2 100 mm/Hg (80-95); ARTERIAL BLOOD GAS pH 7.38 (7.35-7.45)
[2016-12-04 14:34] LABS: ALLEN TEST POS (POS); O2 ADMINISTRATION 60%
--- NOTE | 2016-12-04 17:58 | Family Medicine Progress Note ---
Progress Note Date of Service Dec 04, 2016. Subjective Pt evaluation today including: conversation w/ patient, physical exam, lab review, review of studies Patient was seen at the bedside. Per nurse she is requiring more frequent BiPAP , sometimes even with half hr off BiPAP she would desat. She was more awake this morning. Complains of SOB. Denies any other complaints. Constitutional: No fever Respiratory: + cough, + shortness of breath Cardiovascular: No chest pain, No edema Abdomen: No nausea, No pain, No vomiting Musculoskeletal: No muscle pain Skin: No rash Medications Current Inpatient Medications Medications (Trade) Dose Ordered Sig/Omkar Route Start Time Stop Time Status Last Admin Dose Admin Acetaminophen (Tylenol Tab) 650 mg Q4H PRN PO 11/21/16 15:45 12/21/16 15:44 12/02/16 13:15 650 MG Atorvastatin Calcium (Lipitor Tab) 40 mg DAILY PO 11/22/16 09:00 12/22/16 08:59 12/03/16 09:03 40 MG Montelukast Sodium (Singulair Tab) 10 mg QPM PO 11/21/16 21:00 12/21/16 20:59 12/03/16 21:52 10 MG Propranolol HCl (Inderal Tab) 80 mg BID PO 11/21/16 21:00 12/21/16 20:59 12/03/16 21:53 80 MG Roflumilast (Daliresp Tab) 500 mcg DAILY PO 11/22/16 09:00 12/22/16 08:59 12/03/16 09:04 500 MCG Senna (Senokot Tab) 8.6 mg QAM PO 11/22/16 09:00 12/22/16 08:59 12/03/16 09:03 8.6 MG Aspirin (Aspirin Chew) 81 mg DAILY PO 11/23/16 09:00 12/23/16 08:59 12/03/16 09:09 81 MG Heparin Sodium (Porcine) (Heparin 10 Unit/ ml 5 ml Flush) 5 ml PRN PRN FLUSH 11/25/16 04:15 12/25/16 04:14 12/03/16 14:21 5 ML Ondansetron HCl (Zofran Tab) 4 mg Q4H PRN PO 11/26/16 00:30 12/26/16 00:29 11/26/16 03:06 4 MG Insulin Aspart (novoLOG ASPART) SLIDING SCALE ACHS SC 11/26/16 08:00 12/26/16 07:59 12/03/16 21:41 1 UNITS Arformoterol Tartrate (Brovana 15MCG/ 2ML Neb Soln) 15 mcg BIDR INH 11/26/16 20:00 12/26/16 19:59 12/04/16 07:03 15 MCG Budesonide (Pulmicort Respules 0.5MG/ 2ML Neb Soln) 0.5 mg BIDR INH 11/26/16 20:00 12/26/16 19:59 12/04/16 07:04 0.5 MG Tiotropium [place] (Spiriva Handihaler Inhaler) 1 puff DAILY INH 11/27/16 09:00 12/27/16 08:59 12/03/16 09:05 1 PUFF Lisinopril (Zestril Tab) 5 mg DAILY PO 11/27/16 09:00 12/27/16 08:59 Future Hold 11/27/16 10:01 5 MG Triamterene/HCTZ 1 cap 1 cap DAILY PO 11/27/16 09:00 12/27/16 08:59 Future Hold 11/27/16 10:02 1 CAP Heparin Sodium/ Dextrose (Heparin 25,000 Unit/500ml D5W) 500 ml @ 30 mls/hr [id number] PRN IV 11/26/16 16:15 12/26/16 16:14 Future Hold 11/30/16 10:36 30 MLS/HR Enteral Nutritional Formula (Boost) 1 can BIDM PO 11/26/16 16:30 12/26/16 16:29 12/01/16 07:44 1 CAN Ipratropium [place] (Atrovent 0.02% 0.5MG/2.5ML Neb) 0.5 mg Q6R INH 11/28/16 09:00 12/28/16 07:44 12/04/16 07:03 0.5 MG Levalbuterol 1.25 mg 1.25 mg Q6R INH 11/28/16 09:00 12/28/16 07:44 12/04/16 07:03 1.25 MG Diltiazem HCl/ Dextrose (Cardizem Inj/D5 100ml) 125 ml @ 0 mls/hr Q0M PRN IV 11/28/16 08:45 12/28/16 08:44 Future Hold Ipratropium [place] (Atrovent 0.02% 0.5MG/2.5ML Neb) 0.5 mg Q2R PRN INH 11/28/16 09:15 12/28/16 09:14 12/02/16 23:18 0.5 MG Levalbuterol (Xopenex 1.25MG/ 0.5ML Neb) 1.25 mg Q2R PRN INH 11/28/16 09:15 12/28/16 09:14 12/02/16 23:19 1.25 MG Metoprolol Tartrate (Lopressor Iv) 5 mg Q4H PRN IV 11/28/16 19:45 12/28/16 19:44 11/30/16 08:11 5 MG Acetaminophen/ Hydrocodone Bitart ([place] 5/325 Tab) 1 tab Q4H PRN PO 11/30/16 12:30 12/14/16 12:29 11/30/16 21:46 1 TAB Amiodarone HCl (Cordarone Tab) 400 mg BID PO 12/01/16 21:00 12/31/16 20:59 12/03/16 21:53 400 MG Enteral Nutritional Formula (Boost Breeze Nutritional Drink) 1 box BID PO 12/02/16 21:00 01/01/17 20:59 Prednisone (PredniSONE TAB) 20 mg DAILY PO 12/04/16 09:00 12/05/16 09:01 Furosemide (Lasix Tab) 40 mg QAM PO 12/04/16 09:00 01/03/17 08:59 Pantoprazole Sodium (Protonix Tab) 40 mg BID PO 12/03/16 21:00 01/02/17 20:59 12/03/16 21:54 40 MG Potassium Chloride (Klor-Con Tab) 20 meq BID PO 12/04/16 10:00 01/03/17 09:59 Objective Vital Signs Date Time Temp Pulse Resp B/P Pulse Ox O2 Delivery O2 Flow Rate FiO2 12/04/16 05:45 68 92 60 12/04/16 04:00 BiPAP 60 12/04/16 02:50 37.1 60 20 115/48 90 BiPAP 12/04/16 02:22 63 93 60 12/04/16 02:21 63 24 93 BiPAP/CPAP 60 12/04/16 00:00 BiPAP 60 12/03/16 23:13 65 95 60 12/03/16 23:12 36.9 71 22 133/47 98 BiPAP 12/03/16 20:00 BiPAP 60 12/03/16 19:05 37.2 68 28 128/38 96 BiPAP 12/03/16 19:05 64 96 60 12/03/16 19:05 64 24 96 BiPAP/CPAP 60 12/03/16 16:00 BiPAP 60 12/03/16 15:10 36.5 64 32 148/46 95 Nasal Cannula 6.0 12/03/16 14:10 66 22 92 Nasal Cannula 6.0 12/03/16 12:00 BiPAP 60 12/03/16 11:33 36.6 66 19 120/53 97 BiPAP 12/03/16 08:00 BiPAP 60 12/03/16 07:48 36.5 68 18 115/72 95 Nasal Cannula 6.0 Humidified Oxygen 12/03/16 07:35 63 28 93 BiPAP/CPAP Physical Exam General Appearance: + mild distress Neck: supple, trachea midline Respiratory/Chest: chest non-tender, + respiratory distress, + decreased breath sounds, + crackles Cardiovascular: regular rate, rhythm, no edema Abdomen: normal bowel sounds, non tender, soft Extremities: non-tender, no pedal edema Neurologic/Psychiatric: alert Skin: normal color, warm/dry Laboratory Results Results Past 24 Hours Test 12/03/16 11:46 12/03/16 16:20 12/03/16 20:13 12/04/16 04:45 Range/Units Bedside Glucose 137 134 217 70-90 mg/dl White Blood Count 20.32 4.8-10.8 K/uL Red Blood Count 2.90 4.2-5.4 M/uL Hemoglobin 8.7 12.0-16.0 g/dL Hematocrit 29.2 37-47 % Mean Corpuscular Volume 100.7 80-100 fL Mean Corpuscular Hemoglobin 30.0 25-34 pg Mean Corpuscular Hemoglobin Concent 29.8 32-36 g/dl RDW Standard Deviation 49.0 36.4-46.3 fL RDW Coefficient of Variation 13.3 11.5-14.5 % Platelet Count 311 130-400 K/uL Mean Platelet Volume 9.6 7.4-10.4 fL Activated Partial Thromboplast Time 20.1 21.0-31.0 SECONDS Partial Thromboplastin Ratio 0.8 Sodium Level 146 136-145 mmol/L Potassium Level 3.2 3.5-5.1 mmol/L Chloride Level 94 98-107 mmol/L Carbon Dioxide Level 53 21-32 mmol/L Anion Gap -1.0 3-11 mmol/L Blood Urea Nitrogen 61 7-18 mg/dl Creatinine 0.95 0.60-1.20 mg/dl Est Creatinine Clear Calc Drug Dose 48.8 ml/min Estimated GFR () 67.0 Estimated GFR (Non- 57.8 BUN/Creatinine Ratio 64.3 10-20 Random Glucose 95 70-99 mg/dl Calcium Level 9.5 8.5-10.1 mg/dl Test 12/04/16 06:59 Range/Units Bedside Glucose 102 70-90 mg/dl Assessment and Plan This is a 76 y/o female with hx of COPD on home O2 @ 4L, falls, chronic LE edema and generalized weakness, p/w acute worsening of SOB with acute hypoxic respiratory failure prior to arrival with VBG showing CO2 of 47 requiring immediate intubation. Was successfully extubated on 11/25/16. Patient is currently requiring more frequent BiPAP. Patient continue to retain CO2 and requiring more frequent BiPAP. She has very minimal to no improve on her clinical condition. ABG was done today and showed pCO2 86 (last reading was 83) and HCO3 49 *Leukocytosis - could be 2/2 steroid or persistent infection - Patient is currently on antibiotics IV imipenem/cilastatin (Day #8) and Levaquin (Day #1) for possible PNA/UTI - Tomorrow will be her last dose of steroid - Will continue to monitor. * Acute on Chronic hypoxic/hypercapnic Respiratory Failure - It is most likely multifactorial, 2/2 COPD exacerbation, pneumonia and diastolic CHF - Patient is requiring more frequent BiPAP. Dr. Knapp recommended to continue with BiPAP (FiO2 60) as frequently as possible to reduce the work of breathing. - CXR (12/02): Increasing left pleural effusion with progressive left lower lobe atelectasis/consolidation. - Patient was intubated on admission and successfully extubated on 11/25 - Patient was evaluated by speech and recommendation aspiration precaution. Additional recommendation noted below - CXR (12/04): Resistant bilateral pleural effusions left greater than right with associated bibasal airspace opacities. - Pulmonary was consulted and appreciate Dr. Knapp's recommendations. * COPD exacerbation - Patient's last FEV1 was 36% (2012) and most likely it is becoming progressively worse - D/keyon Spiriva and Brovana per pulmonary given patient can't use the proper technique for the inhaler - C/w Daliresp, Pulmicort and PO singular 10mg - C/w Atrovent 0.5mg and Xopenex 1.25 q6h scheduled and q2h prn - PO prednisone 20mg for 3 days (Day#2) - Pulmonology on board and will continue to appreciate Dr. Knapp's recommendations. * Bibasilar consolidation - Sputum culture showed Achromobacter xylosoxidans and H. Flu - BCx (-) - Patient had speech and swallow evaluation on 11/25. Recommendations as follows: 1. Moist mechanical soft diet as tolerated 2. STRICT aspiration precautions, straws OK with small single sips. Fully upright for p.o. intake & for 30 minutes after intake. Supervision while eating. 3. Small bites, small single sips. Frequent rest breaks and slow rate. No talking while eating. Modify diet to pureed if have difficulty. - ID restarted IV imipenem/cilastatin (Day #8) and Levaquin (Day #1) given increasing WBC and worsening current respiratory symptoms. - Continue to appreciate ID recommendations * Paroxysmal Atrial Fibrillation - Patient converted to sinus rhythm - Rate control with PO Amiodarone 400mg BID - Digoxin 0.125 mg M, W and F per Cardiology given amiodarone can increase the level of digoxin (dioxin level 1.7) - Metoprolol 5mg q4h prn - Per Cardiology Dr. Dos Santos no anticoagulant is warranted at this moment given she is in sinus rhythm. 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 Will continue to appreciate his recommendations. * Diastolic CHF with preserved EF - Patient current symptoms and recent Echo suggestive of CHF - Echo (11/22): * The LV is normal in size. * There is normal left ventricular wall thickness. * All left ventricular wall segments are hyperdynamic, with LV EF 70 %. * The left ventricular wall motion is normal. * Dilated RV with normal function. * The left atrium is moderately dilated. * Aortic valve sclerosis mild, without significant aortic valvular stenosis. * Dilated inferior vena cava with reduced collapsibility with sniff indicates an elevated RA pressure of 15 mmHg - CXR (12/02): Increasing left pleural effusion with progressive left lower lobe atelectasis/consolidation. - CXR 11/29/16 shows persistent bilateral pleural effusions with associated bibasal airspace opacities - CXR (12/04): Resistant bilateral pleural effusions left greater than right with associated bibasal airspace opacities. - Started her on IV Lasix with Albumin 40mg per Pulmonary recommendation - Continue to monitor I/O. Continue to monitor renal function to prevent azotemia * GI bleeding/Rectal bleeding - Stool occult blood is positive - Hgb is trending down, for now will trend H&H, transfuse if needed - Hold Heparin - The etiology is unclear. ?could be 2/2 anticoagulant - Consult GI and recommended IV Protonix 40mg BID. No plan for invasive workup at this time given her multiple co-morbidities. * UTI - UCx was negative. - Patient was restarted on IV imipenem/cilastatin (Day #8) and Levaquin (Day #1) * Chronic conditions: Hyperlipidemia: Continue Atorvastatin 40mg daily HTN: Continue Propranolol 80mg BID. Continue to hold Lisinopril and Triamtrene/HCTZ because of hypotension DM: Continue Lantus 10 units daily + sliding scale * DVT Prophylaxis - Hold heparin drip for GI bleed - SCD and TEDs * Code status - Full Code - I had a conversion with the brother about patient's current condition. Recommended that they discuss among the family member and come up with a decision about her code status. Talked about comfort care given her current condition. Her brother seems to understand; however he states he is not sure if he will be involve in decision making given is the primary decision maker about her. Earlier today Dr. Rivero also had brief conservation with the and the brother. Resident Tracking Resident Involvement: Resident Care Provided Care Provided: Adult Hospital Medicine Reviewed: Pt Seen/Exam by Me History using bipap most of the day Constitutional: denies: fever Cardiovascular: denies chest pain Gastrointestinal/Abdominal: negative: abdominal pain General Appearance: other (on bipap) Respiratory: decreased breath sounds, other (while in the room - pulse ox started to drop to 70s - placed back on bipap. saturating well) Cardiovascular: irregularly irregular Neurologic/Psychiatric: other (lethargic) Skin Characteristics: warm/dry Assessment/Plan I have reviewed the medical record and performed a history and physical examination of this patient today. I have discussed the case with Dr. Hill. The above note reflects my findings, conclusions, and recommendations. considering poor prognosis due to severe copd and the need to be on bipap most of day - reviewed palliative and comfort care with and patient's brother. they would like to continue aggressive care for now.
[2016-12-04] MEDS: MONTELUKAST SOD 10 MG TAB PO SCH (21:06)
[2016-12-05] VITALS (16 sets, daily range): BP systolic 125–145; BP diastolic 38–59; PULSE 69–75; TEMP 36.5–37.4; O2SAT 90–97
[2016-12-05] MEDS: IPRATROPIUM BROMIDE NEB SOLN 0.02% 2.5 ML VIAL INH SCH ×4 (01:49→19:35)
[2016-12-05] MEDS: LEVALBUTEROL 1.25MG/0.5ML NEB INH SCH ×4 (01:49→19:35)
[2016-12-05] MEDS: IMIPENEM/CILASTATIN IV 500 MG in DEXTROSE 5% 100ML 100 ML IV SCH ×3 (04:21→20:47)
[2016-12-05 06:53] LABS: HEMATOCRIT 27.7 % (37-47); MEAN CELL VOLUME 100.4 fL (80-100); MEAN CORPUSCULAR HEMOGLOBIN 30.8 pg (25-34); MEAN CORPUSCULAR HGB CONC 30.7 g/dl (32-36); MEAN PLATELET VOLUME 9.4 fL (7.4-10.4); PLATELET COUNT 259 K/uL (130-400); RED BLOOD COUNT 2.76 M/uL (4.2-5.4); WHITE BLOOD COUNT 22.77 K/uL (4.8-10.8)
[2016-12-05] MEDS: INSULIN ASPART 100 UNITS/ML 3 ML PEN SC SCH ×4 (07:00→20:34)
[2016-12-05 07:03] LABS: PARTIAL THROMBOPLASTIN RATIO 0.8
[2016-12-05] MEDS: BUDESONIDE 0.5 MG/2 ML VIAL (PULMICORT) INH SCH ×2 (07:06→19:35)
[2016-12-05] MEDS: ARFORMOTEROL TART 15MCG/2ML VIAL INH SCH ×2 (07:06→19:35)
[2016-12-05 07:22] LABS: BUN/CREATININE RATIO 55.9 (10-20); CALCIUM 9.6 mg/dl (8.5-10.1); CREATININE 0.96 mg/dl (0.60-1.20); POTASSIUM 3.1 mmol/L (3.5-5.1)
[2016-12-05] MEDS: BOOST VANILLA PO SCH ×4 (07:30→16:45)
[2016-12-05] MEDS: AMIODARONE 200 MG TAB PO SCH ×2 (08:27→20:47)
[2016-12-05] MEDS: TIOTROPIUM BROMIDE 5 PUFF/90 MCG INH INH SCH (08:27)
[2016-12-05] MEDS: BOOST BREEZE NUTRITION DRINK 1 BOX PO SCH ×2 (08:27→20:47)
[2016-12-05] MEDS: PROPRANOLOL HCL 80 MG TAB PO SCH ×2 (08:28→20:48)
[2016-12-05] MEDS: ROFLUMILAST 500 MCG TAB PO SCH (08:28)
[2016-12-05] MEDS: PANTOprazole SOD 40 MG TAB PO SCH ×2 (08:28→20:48)
[2016-12-05] MEDS: ATORVASTATIN 40 MG TAB PO SCH (08:28)
[2016-12-05] MEDS: SENNA 8.6 MG TAB PO SCH (08:28)
[2016-12-05] MEDS: ASPIRIN 81 MG CHEW PO SCH (09:00)
--- NOTE | 2016-12-05 09:29 | DIAGNOSTIC IMAGING REPORT ---
KUB CLINICAL HISTORY: abdominal pain COMPARISON STUDY: 11/21/2016 FINDINGS: There is mild gastric distention. There is gas within nondilated large and small bowel loops. There is stool within the rectal vault. No free air is visualized in the supine study. There is a suspected small left pleural effusion. IMPRESSION: Mild gastric distention. Electronically signed by: Boo Kaplan M.D. 12/05/2016 9:27 AM Dictated Date/Time: 12/05/2016 9:26 AM
--- NOTE | 2016-12-05 10:28 | DIAGNOSTIC IMAGING REPORT ---
BILIARY ULTRASOUND CLINICAL HISTORY: Right upper quadrant abdominal pain COMPARISON STUDY: No previous studies for comparison. FINDINGS: The study was performed in a portable fashion. The pancreas was poorly visualized. Several gallstones are visualized. There is no gallbladder wall thickening. There is no pericholecystic fluid. There is no ductal dilatation. The common bile duct measures 4 mm. No hepatic masses are visualized. There is slight increase in renal cortical echogenicity. A few small renal cysts are visualized the largest of which measures 22 mm. IMPRESSION: 1. Cholelithiasis. No evidence of ductal dilatation. 2. Nondiagnostic evaluation of the pancreas 3. Slight increase in renal cortical echogenicity suggesting medical renal disease Electronically signed by: Boo Kaplan M.D. 12/05/2016 10:26 AM Dictated Date/Time: 12/05/2016 10:24 AM
[2016-12-05] MEDS: ALBUMIN 25% 50 ML with FUROSEMIDE INJ 40 MG IV SCH ×4 (10:55→11:07)
[2016-12-05] MEDS ORDERED: POLYETHYLENE (MIRALAX) 17 GM PACK PO PRN (11:00)
--- NOTE | 2016-12-05 12:10 | Family Medicine Progress Note ---
Progress Note Date of Service Dec 05, 2016. Subjective Pt evaluation today including: conversation w/ patient, physical exam, lab review, review of studies, conversation w/ business management consultant Pain: abdominal pain Voiding: ferguson catheter in place Patient was seen at the bedside. Her grandson was at the bedside. She was anxious and complaining of abdominal pain. Couldn't answer any of my questions. Continue to be on BiPAP. Respiratory: + shortness of breath Abdomen: + constipation, + pain Additional Comments: Couldn't obtain full ROS given patient's condition. Medications Current Inpatient Medications Medications (Trade) Dose Ordered Sig/Omkar Route Start Time Stop Time Status Last Admin Dose Admin Acetaminophen (Tylenol Tab) 650 mg Q4H PRN PO 11/21/16 15:45 12/21/16 15:44 12/02/16 13:15 650 MG Atorvastatin Calcium (Lipitor Tab) 40 mg DAILY PO 11/22/16 09:00 12/22/16 08:59 12/05/16 08:28 40 MG Montelukast Sodium (Singulair Tab) 10 mg QPM PO 11/21/16 21:00 12/21/16 20:59 12/04/16 21:06 10 MG Propranolol HCl (Inderal Tab) 80 mg BID PO 11/21/16 21:00 12/21/16 20:59 12/05/16 08:28 80 MG Roflumilast (Daliresp Tab) 500 mcg DAILY PO 11/22/16 09:00 12/22/16 08:59 12/05/16 08:28 500 MCG Senna (Senokot Tab) 8.6 mg QAM PO 11/22/16 09:00 12/22/16 08:59 12/05/16 08:28 8.6 MG Aspirin (Aspirin Chew) 81 mg DAILY PO 11/23/16 09:00 12/23/16 08:59 12/05/16 09:00 81 MG Heparin Sodium (Porcine) (Heparin 10 Unit/ ml 5 ml Flush) 5 ml PRN PRN FLUSH 11/25/16 04:15 12/25/16 04:14 12/03/16 14:21 5 ML Ondansetron HCl (Zofran Tab) 4 mg Q4H PRN PO 11/26/16 00:30 12/26/16 00:29 11/26/16 03:06 4 MG Insulin Aspart (novoLOG ASPART) SLIDING SCALE ACHS SC 11/26/16 08:00 12/26/16 07:59 12/04/16 17:35 1 UNITS Arformoterol Tartrate (Brovana 15MCG/ 2ML Neb Soln) 15 mcg BIDR INH 11/26/16 20:00 12/26/16 19:59 12/05/16 07:06 15 MCG Budesonide (Pulmicort Respules 0.5MG/ 2ML Neb Soln) 0.5 mg BIDR INH 11/26/16 20:00 12/26/16 19:59 12/05/16 07:06 0.5 MG Tiotropium [place] (Spiriva Handihaler Inhaler) 1 puff DAILY INH 11/27/16 09:00 12/27/16 08:59 12/05/16 08:27 1 PUFF Lisinopril (Zestril Tab) 5 mg DAILY PO 11/27/16 09:00 12/27/16 08:59 Future Hold 11/27/16 10:01 5 MG Triamterene/HCTZ 1 cap 1 cap DAILY PO 11/27/16 09:00 12/27/16 08:59 Future Hold 11/27/16 10:02 1 CAP Heparin Sodium/ Dextrose (Heparin 25,000 Unit/500ml D5W) 500 ml @ 30 mls/hr [id number] PRN IV 11/26/16 16:15 12/26/16 16:14 Future Hold 11/30/16 10:36 30 MLS/HR Enteral Nutritional Formula (Boost) 1 can BIDM PO 11/26/16 16:30 12/26/16 16:29 12/01/16 07:44 1 CAN Ipratropium [place] (Atrovent 0.02% 0.5MG/2.5ML [facility]) 0.5 mg Q6R INH 11/28/16 09:00 12/28/16 07:44 12/05/16 01:49 0.5 MG Levalbuterol 1.25 mg 1.25 mg Q6R INH 11/28/16 09:00 12/28/16 07:44 12/05/16 01:49 1.25 MG Diltiazem HCl/ Dextrose (Cardizem Inj/D5 100ml) 125 ml @ 0 mls/hr Q0M PRN IV 11/28/16 08:45 12/28/16 08:44 Future Hold Ipratropium [place] (Atrovent 0.02% 0.5MG/2.5ML Neb) 0.5 mg Q2R PRN INH 11/28/16 09:15 12/28/16 09:14 12/04/16 11:21 0.5 MG Levalbuterol (Xopenex 1.25MG/ 0.5ML Neb) 1.25 mg Q2R PRN INH 11/28/16 09:15 12/28/16 09:14 12/04/16 11:21 1.25 MG Metoprolol Tartrate (Lopressor Iv) 5 mg Q4H PRN IV 11/28/16 19:45 12/28/16 19:44 11/30/16 08:11 5 MG Acetaminophen/ Hydrocodone Bitart ([place] 5/325 Tab) 1 tab Q4H PRN PO 11/30/16 12:30 12/14/16 12:29 11/30/16 21:46 1 TAB Amiodarone HCl (Cordarone Tab) 400 mg BID PO 12/01/16 21:00 12/31/16 20:59 12/05/16 08:27 400 MG Enteral Nutritional Formula (Boost Breeze Nutritional Drink) 1 box BID PO 12/02/16 21:00 01/01/17 20:59 12/05/16 08:27 1 BOX Pantoprazole Sodium 40 mg 40 mg BID PO 12/03/16 21:00 01/02/17 20:59 12/05/16 08:28 40 MG Imipenem/ Cilastatin Sodium 500 mg/Dextrose 110 ml @ 100 mls/hr Q8H IV 12/04/16 12:00 12/11/16 11:59 12/05/16 04:21 100 MLS/HR Levofloxacin/Prmx (Levaquin / D5W/ Premixed D5W) 150 ml @ 100 mls/hr Q48H IV 12/04/16 11:00 12/11/16 10:59 12/04/16 11:19 100 MLS/HR Levofloxacin 1 ea 1 ea UD PRN N/A 12/04/16 10:45 01/03/17 10:44 Furosemide/ Albumin Human (Lasix Inj/ Albumin 25%) 54 ml @ 54 mls/hr DAILY IV 12/05/16 09:00 12/08/16 08:59 12/05/16 11:07 54 MLS/HR Magnesium Hydroxide (Milk Of Magnesia Susp) 30 ml Q6H PRN PO 12/05/16 11:00 01/04/17 10:59 Polyethylene (Miralax Powder Packet) 17 gm DAILY PRN PO 12/05/16 11:00 01/04/17 10:59 Objective Vital Signs Date Time Temp Pulse Resp B/P Pulse Ox O2 Delivery O2 Flow Rate FiO2 12/05/16 08:01 94 BiPAP 5.0 50 12/05/16 07:23 37.4 73 19 141/57 94 BiPAP 12/05/16 07:05 75 93 50 12/05/16 07:05 75 24 93 BiPAP/CPAP 50 12/05/16 04:32 BiPAP 55 12/05/16 04:00 36.6 70 20 137/47 94 BiPAP 12/05/16 01:51 71 96 55 12/05/16 01:50 71 26 96 BiPAP/CPAP 55 12/05/16 00:13 BiPAP 55 12/05/16 00:00 36.8 69 22 131/42 96 BiPAP 12/04/16 20:50 BiPAP 55 12/04/16 19:14 70 98 60 12/04/16 19:13 70 24 98 BiPAP/CPAP 60 12/04/16 19:12 37.1 72 24 114/55 98 BiPAP 12/04/16 16:00 BiPAP 60 12/04/16 15:10 36.9 72 20 141/52 90 BiPAP 12/04/16 14:32 66 92 60 12/04/16 14:32 68 26 91 BiPAP/CPAP 60 Physical Exam General Appearance: + moderate distress Neck: supple, trachea midline Respiratory/Chest: + respiratory distress, + decreased breath sounds, + crackles Cardiovascular: regular rate, rhythm, no edema Abdomen: normal bowel sounds, soft, + tenderness (generalized tenderness on palpation) Extremities: no pedal edema Neurologic/Psychiatric: alert Skin: normal color, warm/dry Laboratory Results Results Past 24 Hours Test 12/04/16 13:24 12/04/16 14:21 12/04/16 16:17 12/04/16 20:10 Range/Units Hemoglobin 8.6 12.0-16.0 g/dL Hematocrit 27.8 37-47 % Arterial Blood pH 7.38 7.35-7.45 Arterial Blood Partial Pressure CO2 86 35-46 mmHg Arterial Blood Partial Pressure O2 100 80-95 mm/Hg Arterial Blood HCO3 49 19-24 mmol/L Arterial Blood Oxygen Saturation 95.8 90-95 % Arterial Blood Base Excess 21.3 -9-1.8 mEq/L Arterial Blood Gas Delivery 60% Rd Test POS POS Bedside Glucose 202 112 70-90 mg/dl Test 12/05/16 06:17 12/05/16 06:48 12/05/16 11:30 Range/Units White Blood Count 22.77 4.8-10.8 K/uL Red Blood Count 2.76 4.2-5.4 M/uL Hemoglobin 8.5 12.0-16.0 g/dL Hematocrit 27.7 37-47 % Mean Corpuscular Volume 100.4 80-100 fL Mean Corpuscular Hemoglobin 30.8 25-34 pg Mean Corpuscular Hemoglobin Concent 30.7 32-36 g/dl RDW Standard Deviation 49.3 36.4-46.3 fL RDW Coefficient of Variation 13.5 11.5-14.5 % Platelet Count 259 130-400 K/uL Mean Platelet Volume 9.4 7.4-10.4 fL Activated Partial Thromboplast Time 21.9 21.0-31.0 SECONDS Partial Thromboplastin Ratio 0.8 Sodium Level 146 136-145 mmol/L Potassium Level 3.1 3.5-5.1 mmol/L Chloride Level 92 98-107 mmol/L Carbon Dioxide Level 53 21-32 mmol/L Anion Gap 1.0 3-11 mmol/L Blood Urea Nitrogen 54 7-18 mg/dl Creatinine 0.96 0.60-1.20 mg/dl Est Creatinine Clear Calc Drug Dose 49.0 ml/min Estimated GFR () 66.1 Estimated GFR (Non- 57.0 BUN/Creatinine Ratio 55.9 10-20 Random Glucose 122 70-99 mg/dl Calcium Level 9.6 8.5-10.1 mg/dl Total Bilirubin 0.7 0.2-1 mg/dl Direct Bilirubin 0.3 0-0.2 mg/dl Aspartate Amino Transf (AST/SGOT) 12 15-37 U/L Alanine Aminotransferase (ALT/SGPT) 14 12-78 U/L Alkaline Phosphatase 47 45-117 U/L Total Protein 5.5 6.4-8.2 gm/dl Albumin 2.1 3.4-5.0 gm/dl Lipase 115 73-393 U/L Bedside Glucose 126 184 70-90 mg/dl Assessment and Plan This is a 76 y/o female with hx of COPD on home O2 @ 4L, falls, chronic LE edema and generalized weakness, p/w acute worsening of SOB with acute hypoxic respiratory failure prior to arrival with VBG showing CO2 of 47 requiring immediate intubation. Was successfully extubated on 11/25/16. Patient is currently requiring more frequent BiPAP. Patient continue to retain CO2 and requiring more frequent BiPAP. She has very minimal to no improve on her clinical condition. Today she complained of generalized abdominal pain. * Abdominal pain/burning - KUB showed mild gastric distention. There is gas within nondilated large and small bowel loops. There is stool within the rectal vault. - Abd US showed 1. Cholelithiasis. No evidence of ductal dilatation. 2. Nondiagnostic evaluation of the pancreas 3. Slight increase in renal cortical echogenicity suggesting medical renal disease - LFTs significant for elevated direct bilirubin and low AST. Decrease total protein and AST (0.3,12), normal lipase (115) - Pain could be 2/2 cholelithiasis vs constipation (no BM for 3 days). Given the pain is more general, mostly on the lower abdominal and imaging showing possible fecal impaction, it is most likely 2/2 constipation - Miralax and milk of mag prn for constipation *Leukocytosis - could be 2/2 steroid or persistent infection - Patient is currently on antibiotics IV imipenem/cilastatin (Day #9) and Levaquin (Day #2) for possible PNA/UTI - Today last dose of steroid - Will continue to monitor. * Acute on Chronic hypoxic/hypercapnic Respiratory Failure - It is most likely multifactorial, 2/2 COPD exacerbation, pneumonia and diastolic CHF - Patient is requiring more frequent BiPAP. Dr. Knapp recommended to continue with BiPAP as frequently as possible to reduce the work of breathing. - CXR (12/02): Increasing left pleural effusion with progressive left lower lobe atelectasis/consolidation. - Patient was intubated on admission and successfully extubated on 11/25 - Patient was evaluated by speech and recommendation aspiration precaution. Additional recommendation noted below - CXR (12/04): Resistant bilateral pleural effusions left greater than right with associated bibasal airspace opacities. - Pulmonary was consulted and appreciate Dr. Knapp's recommendations. * COPD exacerbation - Patient's last FEV1 was 36% (2012) and most likely it is becoming progressively worse - D/keyon Spiriva and Brovana per pulmonary given patient can't use the proper technique for the inhaler - C/w Daliresp, Pulmicort and PO singular 10mg - C/w Atrovent 0.5mg and Xopenex 1.25 q6h scheduled and q2h prn - PO prednisone 20mg for 3 days (Day#3) - Pulmonology on board and will continue to appreciate Dr. Knapp's recommendations. * Bibasilar consolidation - Sputum culture showed Achromobacter xylosoxidans and H. Flu - BCx (-) - Patient had speech and swallow evaluation on 11/25. Recommendations as follows: 1. Moist mechanical soft diet as tolerated 2. STRICT aspiration precautions, straws OK with small single sips. Fully upright for p.o. intake & for 30 minutes after intake. Supervision while eating. 3. Small bites, small single sips. Frequent rest breaks and slow rate. No talking while eating. Modify diet to pureed if have difficulty. - ID restarted IV imipenem/cilastatin (Day #9) and Levaquin (Day #2) given increasing WBC and worsening current respiratory symptoms. - Continue to appreciate ID recommendations * Paroxysmal Atrial Fibrillation - Patient converted to sinus rhythm - Rate control with PO Amiodarone 400mg BID - Digoxin 0.125 mg M, W and F per Cardiology given amiodarone can increase the level of digoxin (dioxin level 1.7) - Metoprolol 5mg q4h prn - Per Cardiology Dr. Dos Santos no anticoagulant is warranted at this moment given she is in sinus rhythm. For halfway it will be beneficial but also might be too risky. Will continue to appreciate his recommendations. * Diastolic CHF with preserved EF - Patient current symptoms and recent Echo suggestive of CHF - Echo (11/22): * The LV is normal in size. * There is normal left ventricular wall thickness. * All left ventricular wall segments are hyperdynamic, with LV EF 70 %. * The left ventricular wall motion is normal. * Dilated RV with normal function. * The left atrium is moderately dilated. * Aortic valve sclerosis mild, without significant aortic valvular stenosis. * Dilated inferior vena cava with reduced collapsibility with sniff indicates an elevated RA pressure of 15 mmHg - CXR (12/02): Increasing left pleural effusion with progressive left lower lobe atelectasis/consolidation. - CXR 11/29/16 shows persistent bilateral pleural effusions with associated bibasal airspace opacities - CXR (12/04): Resistant bilateral pleural effusions left greater than right with associated bibasal airspace opacities. - Started her on IV Lasix with Albumin 40mg per Pulmonary recommendation - Continue to monitor I/O. Continue to monitor renal function to prevent azotemia * GI bleeding/Rectal bleeding/low Hgb - Stool occult blood is positive - Hgb is trending down, for now will continue to monitor transfuse if needed - Hold Heparin - The etiology is unclear. ?could be 2/2 anticoagulant - Consult GI and recommended IV Protonix 40mg BID. No plan for invasive workup at this time given her multiple co-morbidities. * UTI - UCx was negative. - Patient was restarted on IV imipenem/cilastatin (Day #8) and Levaquin (Day #1) * Chronic conditions: Hyperlipidemia: Continue Atorvastatin 40mg daily HTN: Continue Propranolol 80mg BID. Continue to hold Lisinopril and Triamtrene/HCTZ because of hypotension DM: no basal inulin only sliding scale * DVT Prophylaxis - Hold heparin drip for GI bleed - SCD and TEDs * Code status - Full Code I had a conversion with the brother about patient's current condition. Recommended that they discuss among the family member and come up with a decision. Talked about comfort care vs hospice care given her current condition. Her brother seems to understand; however he states he is not sure if he will be involve in decision making given is the primary decision maker about her. . Resident Tracking Resident Involvement: Resident Care Provided Care Provided: Adult Hospital Medicine Reviewed: Pt Seen/Exam by Me History stays on bipap most of the day. Constitutional: denies: fever Cardiovascular: denies chest pain General Appearance: other (on bipap - conversing though) Respiratory: decreased breath sounds Cardiovascular: irregularly irregular Gastrointestinal: normal bowel sounds, non tender, soft Neurologic/Psychiatric: alert Skin Characteristics: warm/dry Assessment/Plan I have reviewed the medical record and performed a history and physical examination of this patient today. I have discussed the case with Dr. Hill. The above note reflects my findings, conclusions, and recommendations.
[2016-12-05] MEDS: MAGNESIUM HYDROXIDE SUSP 30 ML UDC PO PRN (12:48)
[2016-12-05] MEDS: MONTELUKAST SOD 10 MG TAB PO SCH (20:48)
[2016-12-06] VITALS (14 sets, daily range): BP systolic 99–144; BP diastolic 24–55; PULSE 51–70; TEMP 36.2–36.7; O2SAT 65–100
[2016-12-06] MEDS: LEVALBUTEROL 1.25MG/0.5ML NEB INH SCH ×2 (01:53→07:00)
[2016-12-06] MEDS: IPRATROPIUM BROMIDE NEB SOLN 0.02% 2.5 ML VIAL INH SCH ×2 (01:53→07:00)
[2016-12-06] MEDS: IMIPENEM/CILASTATIN IV 500 MG in DEXTROSE 5% 100ML 100 ML IV SCH ×3 (04:00→20:31)
[2016-12-06 06:36] LABS: PARTIAL THROMBOPLASTIN RATIO 0.8
[2016-12-06] MEDS: BUDESONIDE 0.5 MG/2 ML VIAL (PULMICORT) INH SCH ×2 (07:08→19:24)
[2016-12-06] MEDS: ARFORMOTEROL TART 15MCG/2ML VIAL INH SCH ×2 (07:08→19:23)
[2016-12-06 07:29] LABS: CALCIUM 9.7 mg/dl (8.5-10.1); CREATININE 1.1 mg/dl (0.60-1.20); POTASSIUM 3.3 mmol/L (3.5-5.1)
[2016-12-06] MEDS: BOOST VANILLA PO SCH ×4 (07:30→16:28)
[2016-12-06 07:41] LABS: HEMATOCRIT 28.8 % (37-47); MEAN CELL VOLUME 105.5 fL (80-100); MEAN CORPUSCULAR HEMOGLOBIN 30.8 pg (25-34); MEAN CORPUSCULAR HGB CONC 29.2 g/dl (32-36); MEAN PLATELET VOLUME 9.2 fL (7.4-10.4); PLATELET COUNT 228 K/uL (130-400); RED BLOOD COUNT 2.73 M/uL (4.2-5.4); WHITE BLOOD COUNT 19.02 K/uL (4.8-10.8)
[2016-12-06] MEDS: BOOST BREEZE NUTRITION DRINK 1 BOX PO SCH ×2 (07:55→20:31)
[2016-12-06] MEDS: AMIODARONE 200 MG TAB PO SCH ×2 (07:56→21:12)
[2016-12-06] MEDS: TIOTROPIUM BROMIDE 5 PUFF/90 MCG INH INH SCH (07:56)
[2016-12-06] MEDS: PROPRANOLOL HCL 80 MG TAB PO SCH (07:57)
[2016-12-06] MEDS: SENNA 8.6 MG TAB PO SCH (07:57)
[2016-12-06] MEDS: ATORVASTATIN 40 MG TAB PO SCH (07:57)
[2016-12-06] MEDS: PANTOprazole SOD 40 MG TAB PO SCH ×2 (07:57→21:00)
[2016-12-06] MEDS: ROFLUMILAST 500 MCG TAB PO SCH (07:57)
[2016-12-06] MEDS: MAGNESIUM HYDROXIDE SUSP 30 ML UDC PO PRN (08:01)
[2016-12-06] MEDS ORDERED: DEXTROSE 5% 500ML 500 ML IV ONE (08:30)
[2016-12-06] MEDS ORDERED: NOREPINEPHRINE BITARTRATE 1 MG/ML 4 ML VIAL ONE (09:23)
[2016-12-06] MEDS ORDERED: FENTANYL CITRATE INJ 50 MCG/1 ML 2 ML VIAL ONE (09:34)
--- NOTE | 2016-12-06 09:44 | DIAGNOSTIC IMAGING REPORT ---
CHEST ONE VIEW PORTABLE CLINICAL HISTORY: s/p intubation COMPARISON STUDY: Chest radiograph December 04, 2016. FINDINGS: The tip of the endotracheal tube is 3.3 cm above the unruly. A right PICC remains in place. The tip of the nasogastric tube is within the body of the stomach. There is no pneumothorax. A small left pleural effusion is noted. Interstitial thickening has developed. Dense left basilar opacity with air bronchograms is noted. There is mild right lower lung opacity. IMPRESSION: 1. Satisfactory positioning of lines and tubes. 2. Interval development of interstitial thickening suggestive of pulmonary edema. 3. Dense left lower lobe opacity with volume loss which may reflect left lower lobe atelectasis or pneumonia. Electronically signed by: Cristobal Farah M.D. 12/06/2016 9:41 AM Dictated Date/Time: 12/06/2016 9:39 AM
[2016-12-06] MEDS: METHYLPREDNISOLONE IV 40 MG in SYRINGE 0 ML IV SCH ×2 (10:51→18:19)
[2016-12-06] MEDS ORDERED: PROPOFOL IV EMULSION 10 MG/ML 100 ML VIAL IV ONE (10:51)
[2016-12-06] MEDS: NOREPINEPHRINE BIT INJ 8 MG in DEXTROSE 5% 500ML 500 ML IV PRN (10:52)
[2016-12-06 10:57] LABS: ISTAT ALLEN TEST Pass; ISTAT ARTERIAL BLOOD GAS HCO3 55 meq/L (19-24); ISTAT ARTERIAL BLOOD GAS PCO2 103 mmHg (35-46); ISTAT ARTERIAL BLOOD GAS PO2 262 mmHg (80-95); ISTAT ARTERIAL BLOOD GAS pH 7.34 (7.35-7.45); ISTAT CARBON DIOXIDE < 5 mEq/l (24-31); ISTAT DELIVERY SYSTEM Ventilator; ISTAT FIO2 100 %; ISTAT PEEP 5; ISTAT RATE 16; ISTAT SITE R Radial; VE 6.3; Vt 450
[2016-12-06] MEDS: ASPIRIN 81 MG CHEW PO SCH (10:59)
[2016-12-06] MEDS: INSULIN ASPART 100 UNITS/ML 3 ML PEN SC SCH ×4 (11:00→22:05)
[2016-12-06] MEDS: LEVOFLOXACIN / D5W 750 MG in PREMIXED IN D5W 150 ML IV SCH (11:31)
[2016-12-06 11:59] LABS: HEMATOCRIT 26.1 % (37-47); MEAN CELL VOLUME 105.2 fL (80-100); MEAN CORPUSCULAR HEMOGLOBIN 31.5 pg (25-34); MEAN PLATELET VOLUME 9.5 fL (7.4-10.4); PLATELET COUNT 259 K/uL (130-400); RED BLOOD COUNT 2.48 M/uL (4.2-5.4); WHITE BLOOD COUNT 23.28 K/uL (4.8-10.8)
[2016-12-06] MEDS ORDERED: ALBUT/IPRATROP 3MG/0.5MG NEB 3 ML VIAL INH SCH (12:00)
[2016-12-06 12:15] LABS: MEAN CORPUSCULAR HGB CONC 29.9 g/dl (32-36)
[2016-12-06] MEDS: NORMOSOL R 1,000 ML IV SCH (12:20)
[2016-12-06 12:29] LABS: ALB/GLOB RATIO 0.6 (0.9-2); BUN/CREATININE RATIO 50.6 (10-20); CALCIUM 8.2 mg/dl (8.5-10.1); CREATININE 1.2 mg/dl (0.60-1.20); MAGNESIUM 2.8 mg/dl (1.8-2.4); PHOSPHORUS 4.3 mg/dl (2.5-4.9); POTASSIUM 3.9 mmol/L (3.5-5.1)
--- NOTE | 2016-12-06 12:54 | Pulmonology Progress Note ---
Pulmonary Progress Note Date of Service Dec 06, 2016. Attending Dr. Knapp Subjective Patient is intubated and sedated Objective Patient is intubated and sedated with no notable signs of distress at this time. VS: SaO2 89% on vent: 16/100%/450cc/5cmH20 RESP: decreased BS LLL with global crackles and rhonchi ABD: distended with decreased BS CARD: S1S2 tachy with distant HS, unable to auscultate AB.34/103/262/55 (vent: 16/100%/450cc/5cmH20) CXR: ETT 3cm above the unruly, LLL opacification, PICC WNL KUB: enlarged gastric bubble WBC: 23K Serum CO2: 50 Assessment & Plan #1 Respiratory Failure: I agree with the ICU teams plane of care: ABX, steroids, mechanical ventilation. No current recommendations recommendations as aspiration was the most likely etiology of her acute decline. Agree that COPD, CHF and PNA are her underlying issues. #2 End of Life: I have spoken to the family at length: , son, brother and his . I informed them she has a poor chances of getting of the ventilator and suggest if they wanted to aggressively treated this patient early tracheostomy and PEG tube would be appropriate. I'm available to perform both procedures if necessary. I have also informed the, that hospice care would also be very appropriate at this time. Data Medications: Current Inpatient Medications Medications (Trade) Dose Ordered Sig/Omkar Route Start Time Stop Time Status Last Admin Dose Admin Acetaminophen (Tylenol Tab) 650 mg Q4H PRN PO 11/21/16 15:45 12/21/16 15:44 12/02/16 13:15 650 MG Atorvastatin Calcium (Lipitor Tab) 40 mg DAILY PO 11/22/16 09:00 12/22/16 08:59 12/06/16 07:57 40 MG Montelukast Sodium (Singulair Tab) 10 mg QPM PO 11/21/16 21:00 12/21/16 20:59 12/05/16 20:48 10 MG Propranolol HCl (Inderal Tab) 80 mg BID PO 11/21/16 21:00 12/21/16 20:59 12/06/16 07:57 80 MG Roflumilast (Daliresp Tab) 500 mcg DAILY PO 11/22/16 09:00 12/22/16 08:59 12/06/16 07:57 500 MCG Senna (Senokot Tab) 8.6 mg QAM PO 11/22/16 09:00 12/22/16 08:59 12/06/16 07:57 8.6 MG Aspirin (Aspirin Chew) 81 mg DAILY PO 11/23/16 09:00 12/23/16 08:59 12/05/16 09:00 81 MG Heparin Sodium (Porcine) (Heparin 10 Unit/ ml 5 ml Flush) 5 ml PRN PRN FLUSH 11/25/16 04:15 12/25/16 04:14 12/03/16 14:21 5 ML Ondansetron HCl (Zofran Tab) 4 mg Q4H PRN PO 11/26/16 00:30 12/26/16 00:29 11/26/16 03:06 4 MG Insulin Aspart (novoLOG ASPART) SLIDING SCALE ACHS SC 11/26/16 08:00 12/26/16 07:59 12/06/16 11:28 2 UNITS Arformoterol Tartrate (Brovana 15MCG/ 2ML Neb Soln) 15 mcg BIDR INH 11/26/16 20:00 12/26/16 19:59 12/06/16 07:08 15 MCG Budesonide (Pulmicort Respules 0.5MG/ 2ML Neb Soln) 0.5 mg BIDR INH 11/26/16 20:00 12/26/16 19:59 12/06/16 07:08 0.5 MG Tiotropium [place] (Spiriva Handihaler Inhaler) 1 puff DAILY INH 11/27/16 09:00 12/27/16 08:59 12/06/16 07:56 1 PUFF Lisinopril (Zestril Tab) 5 mg DAILY PO 11/27/16 09:00 12/27/16 08:59 Future Hold 11/27/16 10:01 5 MG Triamterene/HCTZ 1 cap 1 cap DAILY PO 11/27/16 09:00 12/27/16 08:59 Future Hold 11/27/16 10:02 1 CAP Heparin Sodium/ Dextrose (Heparin 25,000 Unit/500ml D5W) 500 ml @ 30 mls/hr [id number] PRN IV 11/26/16 16:15 12/26/16 16:14 Future Hold 11/30/16 10:36 30 MLS/HR Enteral Nutritional Formula 1 can 1 can BIDM PO 11/26/16 16:30 12/26/16 16:29 12/01/16 07:44 1 CAN Diltiazem HCl/ Dextrose (Cardizem Inj/D5 100ml) 125 ml @ 0 mls/hr Q0M PRN IV 11/28/16 08:45 12/28/16 08:44 Future Hold Ipratropium [place] (Atrovent 0.02% 0.5MG/2.5ML Neb) 0.5 mg Q2R PRN INH 11/28/16 09:15 12/28/16 09:14 12/04/16 11:21 0.5 MG Levalbuterol (Xopenex 1.25MG/ 0.5ML Neb) 1.25 mg Q2R PRN INH 11/28/16 09:15 12/28/16 09:14 12/04/16 11:21 1.25 MG Metoprolol Tartrate (Lopressor Iv) 5 mg Q4H PRN IV 11/28/16 19:45 12/28/16 19:44 11/30/16 08:11 5 MG Acetaminophen/ Hydrocodone Bitart (Brant 5/325 Tab) 1 tab Q4H PRN PO 11/30/16 12:30 12/14/16 12:29 11/30/16 21:46 1 TAB Amiodarone HCl (Cordarone Tab) 400 mg BID PO 12/01/16 21:00 12/31/16 20:59 12/06/16 07:56 400 MG Enteral Nutritional Formula (Boost Breeze Nutritional Drink) 1 box BID PO 12/02/16 21:00 01/01/17 20:59 12/05/16 20:47 1 BOX Pantoprazole Sodium 40 mg 40 mg BID PO 12/03/16 21:00 01/02/17 20:59 12/06/16 07:57 40 MG Imipenem/ Cilastatin Sodium 500 mg/Dextrose 110 ml @ 100 mls/hr Q8H IV 12/04/16 12:00 12/11/16 11:59 12/06/16 04:00 100 MLS/HR Levofloxacin/Prmx (Levaquin / D5W/ Premixed D5W) 150 ml @ 100 mls/hr Q48H IV 12/04/16 11:00 12/11/16 10:59 12/06/16 11:31 100 MLS/HR Levofloxacin 1 ea 1 ea UD PRN N/A 12/04/16 10:45 01/03/17 10:44 Furosemide/ Albumin Human (Lasix Inj/ Albumin 25%) 54 ml @ 54 mls/hr DAILY IV 12/05/16 09:00 12/08/16 08:59 Future Hold 12/05/16 11:07 54 MLS/HR Magnesium Hydroxide (Milk Of Magnfabiola Susp) 30 ml Q6H PRN PO 12/05/16 11:00 01/04/17 10:59 12/06/16 08:01 30 ML Polyethylene 17 gm 17 gm DAILY PRN PO 12/05/16 11:00 01/04/17 10:59 Norepinephrine Bitartrate 8 mg/ Dextrose 508 ml @ 0 mls/hr Q0M PRN IV 12/06/16 09:30 01/05/17 09:29 12/06/16 10:52 41.2 MLS/HR Methylprednisolone Sodium Succinate/ Syringe (Solu-Medrol IV/ Syringe) 0.64 ml @ 1.5 mls/min Q8H IV 12/06/16 10:00 01/05/17 09:59 12/06/16 10:51 1.5 MLS/MIN Albuterol/ Ipratropium (Duoneb) 3 ml Q4R INH 12/06/16 12:00 01/05/17 11:59 Future Hold Propofol 1 dose 1 dose UD PRN IV 12/06/16 10:57 12/09/16 10:56 Parenteral Electrolyte Solution (Normosol R) 1,000 ml @ 75 mls/hr [id number] IV 12/06/16 12:15 01/05/17 11:14 12/06/16 12:20 75 MLS/HR Ipratropium [place] (Atrovent Hfa Inhaler) 4 puffs Q6R INH 12/06/16 15:00 01/05/17 14:59 Levalbuterol (Xopenex Hfa Inhaler) 4 puffs Q6R INH 12/06/16 15:00 01/05/17 14:59 I & O: 24-Hour Column 12/06/16 08:00 Intake Total 540 ml Output Total 1175 ml Balance -635 ml Vital Signs: Date Time Temp Pulse Resp B/P Pulse Ox O2 Delivery O2 Flow Rate FiO2 12/06/16 11:25 60 12/06/16 10:50 50 12/06/16 09:48 100 12/06/16 08:01 88 BiPAP 50 Venturi Mask 12/06/16 07:35 63 87 50 12/06/16 07:13 52 98 60 12/06/16 07:11 52 22 98 Venturi Mask 60 12/06/16 06:57 36.7 51 16 107/24 98 BiPAP 12/06/16 04:28 Venturi Mask 40 12/06/16 03:55 36.3 56 18 122/46 95 CPAP 12/06/16 01:54 63 92 100 12/06/16 01:53 63 22 65 Venturi Mask 50 12/06/16 00:05 Venturi Mask 40 12/05/16 23:00 36.5 69 18 145/50 90 Mask 7.0 12/05/16 20:16 Venturi Mask 40 12/05/16 19:39 75 24 92 Venturi Mask 50 12/05/16 18:50 37.0 75 20 134/38 91 Venturi Mask 12.0 12/05/16 17:24 94 BiPAP 5.0 50 12/05/16 14:55 37.2 71 21 129/59 96 Room Air 12/05/16 14:17 70 97 50 12/05/16 14:05 70 16 97 BiPAP/CPAP 50 Laboratory Results: Last 24 Hours Test 12/05/16 16:19 12/05/16 20:27 12/06/16 05:47 12/06/16 08:23 Bedside Glucose 151 mg/dl 130 mg/dl White Blood Count 19.02 K/uL Red Blood Count 2.73 M/uL Hemoglobin 8.4 g/dL Hematocrit 28.8 % Mean Corpuscular Volume 105.5 fL Mean Corpuscular Hemoglobin 30.8 pg Mean Corpuscular Hemoglobin Concent 29.2 g/dl RDW Standard Deviation 52.7 fL RDW Coefficient of Variation 13.6 % Platelet Count 228 K/uL Mean Platelet Volume 9.2 fL Activated Partial Thromboplast Time 21.7 SECONDS Partial Thromboplastin Ratio 0.8 Sodium Level 149 mmol/L Potassium Level 3.3 mmol/L Chloride Level 92 mmol/L Carbon Dioxide Level 56 mmol/L Anion Gap 1.0 mmol/L Blood Urea Nitrogen 60 mg/dl Creatinine 1.10 mg/dl Est Creatinine Clear Calc Drug Dose 42.4 ml/min Estimated GFR () 56.1 Estimated GFR (Non- 48.4 BUN/Creatinine Ratio 55.0 Random Glucose 167 mg/dl Calcium Level 9.7 mg/dl Test 12/06/16 09:13 12/06/16 10:41 12/06/16 11:18 12/06/16 11:45 Bedside Glucose 190 mg/dl 196 mg/dl Blood Gas Sample Site R Radial Bedside Blood Gas pH (LAB) 7.34 Bedside Blood Gas pCO2 (LAB) 103 mmHg Bedside Blood Gas pO2 (LAB) 262 mmHg Bedside Blood Gas HCO3 (LAB) 55 meq/L Bedside Blood Gas Total CO2 < 5 mEq/l Bedside Blood Gas Base Excess (LAB) 29.0 meq/L Bedside Blood Gas O2 Saturation 100.0 % Rd Test Pass Oxygen Delivery Device Ventilator Bedside Oxygen Rate (breaths/min) 16 Blood Gas Minute Ventilation 6.3 Bedside FiO2 100 % Blood Gas Tidal Volume 450 Blood Gas PEEP 5 White Blood Count 23.28 K/uL Red Blood Count 2.48 M/uL Hemoglobin 7.8 g/dL Hematocrit 26.1 % Mean Corpuscular Volume 105.2 fL Mean Corpuscular Hemoglobin 31.5 pg Mean Corpuscular Hemoglobin Concent 29.9 g/dl RDW Standard Deviation 52.0 fL RDW Coefficient of Variation 13.6 % Platelet Count 259 K/uL Mean Platelet Volume 9.5 fL Sodium Level 146 mmol/L Potassium Level 3.9 mmol/L Chloride Level 98 mmol/L Carbon Dioxide Level 50 mmol/L Anion Gap -2.0 mmol/L Blood Urea Nitrogen 61 mg/dl Creatinine 1.20 mg/dl Est Creatinine Clear Calc Drug Dose 38.9 ml/min Estimated GFR () 50.5 Estimated GFR (Non- 43.6 BUN/Creatinine Ratio 50.6 Random Glucose 188 mg/dl Lactic Acid Level 1.1 mmol/L Calcium Level 8.2 mg/dl Ionized Calcium 1.12 mmol/l Phosphorus Level 4.3 mg/dl Magnesium Level 2.8 mg/dl Total Bilirubin 0.6 mg/dl Aspartate Amino Transf (AST/SGOT) 27 U/L Alanine Aminotransferase (ALT/SGPT) 25 U/L Alkaline Phosphatase 54 U/L Total Protein 5.2 gm/dl Albumin 1.9 gm/dl Globulin 3.3 gm/dl Albumin/Globulin Ratio 0.6
--- NOTE | 2016-12-06 14:12 | Family Medicine Progress Note ---
Progress Note Date of Service Dec 06, 2016. Subjective Pt evaluation today including: physical exam, lab review, review of studies Voiding: ferguson catheter in place Patient was seen at the bedside. Around 8:17am Dr. Rivero was called because patient was very lethargic, O2 sat =was dropping below 90 with BiPAP and her BP was also declining. Patient was started on D5W 500ml @50mls/hr. Lasix was d/ keyon. Around 9am patient started to decline more - dropping bp in 50s systolic and heart rate of 30s. Rapid response called. [employer]ident Responder was contacted and patient was intubated. Subsequently patient was transferred to the ICU for further management. Additional Comments: Couldn't obtain given patient was intubated and sedated Medications Current Inpatient Medications Medications (Trade) Dose Ordered Sig/Omkar Route Start Time Stop Time Status Last Admin Dose Admin Acetaminophen (Tylenol Tab) 650 mg Q4H PRN PO 11/21/16 15:45 12/21/16 15:44 12/02/16 13:15 650 MG Atorvastatin Calcium (Lipitor Tab) 40 mg DAILY PO 11/22/16 09:00 12/22/16 08:59 12/06/16 07:57 40 MG Montelukast Sodium (Singulair Tab) 10 mg QPM PO 11/21/16 21:00 12/21/16 20:59 12/05/16 20:48 10 MG Propranolol HCl (Inderal Tab) 80 mg BID PO 11/21/16 21:00 12/21/16 20:59 12/06/16 07:57 80 MG Roflumilast (Daliresp Tab) 500 mcg DAILY PO 11/22/16 09:00 12/22/16 08:59 12/06/16 07:57 500 MCG Senna (Senokot Tab) 8.6 mg QAM PO 11/22/16 09:00 12/22/16 08:59 12/06/16 07:57 8.6 MG Aspirin (Aspirin Chew) 81 mg DAILY PO 11/23/16 09:00 12/23/16 08:59 12/05/16 09:00 81 MG Heparin Sodium (Porcine) (Heparin 10 Unit/ ml 5 ml Flush) 5 ml PRN PRN FLUSH 11/25/16 04:15 12/25/16 04:14 12/03/16 14:21 5 ML Ondansetron HCl (Zofran Tab) 4 mg Q4H PRN PO 11/26/16 00:30 12/26/16 00:29 11/26/16 03:06 4 MG Insulin Aspart (novoLOG ASPART) SLIDING SCALE ACHS SC 11/26/16 08:00 12/26/16 07:59 12/06/16 11:28 2 UNITS Arformoterol Tartrate (Brovana 15MCG/ 2ML Neb Soln) 15 mcg BIDR INH 11/26/16 20:00 12/26/16 19:59 12/06/16 07:08 15 MCG Budesonide (Pulmicort Respules 0.5MG/ 2ML Neb Soln) 0.5 mg BIDR INH 11/26/16 20:00 12/26/16 19:59 12/06/16 07:08 0.5 MG Tiotropium [place] (Spiriva Handihaler Inhaler) 1 puff DAILY INH 11/27/16 09:00 12/27/16 08:59 12/06/16 07:56 1 PUFF Lisinopril (Zestril Tab) 5 mg DAILY PO 11/27/16 09:00 12/27/16 08:59 Future Hold 11/27/16 10:01 5 MG Triamterene/HCTZ 1 cap 1 cap DAILY PO 11/27/16 09:00 12/27/16 08:59 Future Hold 11/27/16 10:02 1 CAP Heparin Sodium/ Dextrose (Heparin 25,000 Unit/500ml D5W) 500 ml @ 30 mls/hr [id number] PRN IV 11/26/16 16:15 12/26/16 16:14 Future Hold 11/30/16 10:36 30 MLS/HR Enteral Nutritional Formula 1 can 1 can BIDM PO 11/26/16 16:30 12/26/16 16:29 12/01/16 07:44 1 CAN Diltiazem HCl/ Dextrose (Cardizem Inj/D5 100ml) 125 ml @ 0 mls/hr Q0M PRN IV 11/28/16 08:45 12/28/16 08:44 Future Hold Ipratropium [place] (Atrovent 0.02% 0.5MG/2.5ML Neb) 0.5 mg Q2R PRN INH 11/28/16 09:15 12/28/16 09:14 12/04/16 11:21 0.5 MG Levalbuterol (Xopenex 1.25MG/ 0.5ML Neb) 1.25 mg Q2R PRN INH 11/28/16 09:15 12/28/16 09:14 12/04/16 11:21 1.25 MG Metoprolol Tartrate (Lopressor Iv) 5 mg Q4H PRN IV 11/28/16 19:45 12/28/16 19:44 11/30/16 08:11 5 MG Acetaminophen/ Hydrocodone Bitart (Crivitz 5/325 Tab) 1 tab Q4H PRN PO 11/30/16 12:30 12/14/16 12:29 11/30/16 21:46 1 TAB Amiodarone HCl (Cordarone Tab) 400 mg BID PO 12/01/16 21:00 12/31/16 20:59 12/06/16 07:56 400 MG Enteral Nutritional Formula (Boost Breeze Nutritional Drink) 1 box BID PO 12/02/16 21:00 01/01/17 20:59 12/05/16 20:47 1 BOX Pantoprazole Sodium 40 mg 40 mg BID PO 12/03/16 21:00 01/02/17 20:59 12/06/16 07:57 40 MG Imipenem/ Cilastatin Sodium 500 mg/Dextrose 110 ml @ 100 mls/hr Q8H IV 12/04/16 12:00 12/11/16 11:59 12/06/16 12:40 100 MLS/HR Levofloxacin/Prmx (Levaquin / D5W/ Premixed D5W) 150 ml @ 100 mls/hr Q48H IV 12/04/16 11:00 12/11/16 10:59 12/06/16 11:31 100 MLS/HR Levofloxacin 1 ea 1 ea UD PRN N/A 12/04/16 10:45 01/03/17 10:44 Furosemide/ Albumin Human (Lasix Inj/ Albumin 25%) 54 ml @ 54 mls/hr DAILY IV 12/05/16 09:00 12/08/16 08:59 Future Hold 12/05/16 11:07 54 MLS/HR Magnesium Hydroxide (Milk Of Magnesia Susp) 30 ml Q6H PRN PO 12/05/16 11:00 01/04/17 10:59 12/06/16 08:01 30 ML Polyethylene 17 gm 17 gm DAILY PRN PO 12/05/16 11:00 01/04/17 10:59 Norepinephrine Bitartrate 8 mg/ Dextrose 508 ml @ 0 mls/hr Q0M PRN IV 12/06/16 09:30 01/05/17 09:29 12/06/16 10:52 41.2 MLS/HR Methylprednisolone Sodium Succinate/ Syringe (Solu-Medrol IV/ Syringe) 0.64 ml @ 1.5 mls/min Q8H IV 12/06/16 10:00 01/05/17 09:59 12/06/16 10:51 1.5 MLS/MIN Albuterol/ Ipratropium (Duoneb) 3 ml Q4R INH 12/06/16 12:00 01/05/17 11:59 Future Hold Propofol 1 dose 1 dose UD PRN IV 12/06/16 10:57 12/09/16 10:56 Parenteral Electrolyte Solution (Normosol R) 1,000 ml @ 75 mls/hr [id number] IV 12/06/16 12:15 01/05/17 11:14 12/06/16 12:20 75 MLS/HR Ipratropium [place] (Atrovent Hfa Inhaler) 4 puffs Q6R INH 12/06/16 15:00 01/05/17 14:59 Levalbuterol (Xopenex Hfa Inhaler) 4 puffs Q6R INH 12/06/16 15:00 01/05/17 14:59 Objective Vital Signs Date Time Temp Pulse Resp B/P Pulse Ox O2 Delivery O2 Flow Rate FiO2 12/06/16 12:00 60 12/06/16 12:00 100 Mechanical Ventilator 60 12/06/16 12:00 36.3 63 18 144/52 100 Mechanical Ventilator 60 12/06/16 11:25 60 12/06/16 10:50 50 12/06/16 09:48 100 12/06/16 08:01 88 BiPAP 50 Venturi Mask 12/06/16 07:35 63 87 50 12/06/16 07:13 52 98 60 12/06/16 07:11 52 22 98 Venturi Mask 60 12/06/16 06:57 36.7 51 16 107/24 98 BiPAP 12/06/16 04:28 Venturi Mask 40 12/06/16 03:55 36.3 56 18 122/46 95 CPAP 12/06/16 01:54 63 92 100 12/06/16 01:53 63 22 65 Venturi Mask 50 12/06/16 00:05 Venturi Mask 40 12/05/16 23:00 36.5 69 18 145/50 90 Mask 7.0 12/05/16 20:16 Venturi Mask 40 12/05/16 19:39 75 24 92 Venturi Mask 50 12/05/16 18:50 37.0 75 20 134/38 91 Venturi Mask 12.0 12/05/16 17:24 94 BiPAP 5.0 50 12/05/16 14:55 37.2 71 21 129/59 96 Room Air 12/05/16 14:17 70 97 50 12/05/16 14:05 70 16 97 BiPAP/CPAP 50 Physical Exam General Appearance: + severe distress, + pertinent finding (patient was intubated and sedated) Respiratory/Chest: + decreased breath sounds, + crackles, + wheezing Cardiovascular: no edema, + bradycardia Abdomen: normal bowel sounds, non tender, soft Extremities: no pedal edema Skin: normal color, no rash Laboratory Results Results Past 24 Hours Test 12/05/16 16:19 12/05/16 20:27 12/06/16 05:47 12/06/16 09:13 Range/Units Bedside Glucose 151 130 190 70-90 mg/dl White Blood Count 19.02 4.8-10.8 K/uL Red Blood Count 2.73 4.2-5.4 M/uL Hemoglobin 8.4 12.0-16.0 g/dL Hematocrit 28.8 37-47 % Mean Corpuscular Volume 105.5 80-100 fL Mean Corpuscular Hemoglobin 30.8 25-34 pg Mean Corpuscular Hemoglobin Concent 29.2 32-36 g/dl RDW Standard Deviation 52.7 36.4-46.3 fL RDW Coefficient of Variation 13.6 11.5-14.5 % Platelet Count 228 130-400 K/uL Mean Platelet Volume 9.2 7.4-10.4 fL Activated Partial Thromboplast Time 21.7 21.0-31.0 SECONDS Partial Thromboplastin Ratio 0.8 Sodium Level 149 136-145 mmol/L Potassium Level 3.3 3.5-5.1 mmol/L Chloride Level 92 98-107 mmol/L Carbon Dioxide Level 56 21-32 mmol/L Anion Gap 1.0 3-11 mmol/L Blood Urea Nitrogen 60 7-18 mg/dl Creatinine 1.10 0.60-1.20 mg/dl Est Creatinine Clear Calc Drug Dose 42.4 ml/min Estimated GFR () 56.1 Estimated GFR (Non- 48.4 BUN/Creatinine Ratio 55.0 10-20 Random Glucose 167 70-99 mg/dl Calcium Level 9.7 8.5-10.1 mg/dl Test 12/06/16 10:41 12/06/16 11:18 12/06/16 11:45 Range/Units Blood Gas Sample Site R Radial Bedside Blood Gas pH (LAB) 7.34 7.35-7.45 Bedside Blood Gas pCO2 (LAB) 103 35-46 mmHg Bedside Blood Gas pO2 (LAB) 262 80-95 mmHg Bedside Blood Gas HCO3 (LAB) 55 19-24 meq/L Bedside Blood Gas Total CO2 < 5 24-31 mEq/l Bedside Blood Gas Base Excess (LAB) 29.0 -9-1.8 meq/L Bedside Blood Gas O2 Saturation 100.0 90-95 % Rd Test Pass Oxygen Delivery Device Ventilator Bedside Oxygen Rate (breaths/min) 16 Blood Gas Minute Ventilation 6.3 Bedside FiO2 100 % Blood Gas Tidal Volume 450 Blood Gas PEEP 5 Bedside Glucose 196 70-90 mg/dl White Blood Count 23.28 4.8-10.8 K/uL Red Blood Count 2.48 4.2-5.4 M/uL Hemoglobin 7.8 12.0-16.0 g/dL Hematocrit 26.1 37-47 % Mean Corpuscular Volume 105.2 80-100 fL Mean Corpuscular Hemoglobin 31.5 25-34 pg Mean Corpuscular Hemoglobin Concent 29.9 32-36 g/dl RDW Standard Deviation 52.0 36.4-46.3 fL RDW Coefficient of Variation 13.6 11.5-14.5 % Platelet Count 259 130-400 K/uL Mean Platelet Volume 9.5 7.4-10.4 fL Sodium Level 146 136-145 mmol/L Potassium Level 3.9 3.5-5.1 mmol/L Chloride Level 98 98-107 mmol/L Carbon Dioxide Level 50 21-32 mmol/L Anion Gap -2.0 3-11 mmol/L Blood Urea Nitrogen 61 7-18 mg/dl Creatinine 1.20 0.60-1.20 mg/dl Est Creatinine Clear Calc Drug Dose 38.9 ml/min Estimated GFR () 50.5 Estimated GFR (Non- 43.6 BUN/Creatinine Ratio 50.6 10-20 Random Glucose 188 70-99 mg/dl Lactic Acid Level 1.1 0.4-2.0 mmol/L Calcium Level 8.2 8.5-10.1 mg/dl Ionized Calcium 1.12 1.12-1.32 mmol/l Phosphorus Level 4.3 2.5-4.9 mg/dl Magnesium Level 2.8 1.8-2.4 mg/dl Total Bilirubin 0.6 0.2-1 mg/dl Aspartate Amino Transf (AST/SGOT) 27 15-37 U/L Alanine Aminotransferase (ALT/SGPT) 25 12-78 U/L Alkaline Phosphatase 54 45-117 U/L Total Protein 5.2 6.4-8.2 gm/dl Albumin 1.9 3.4-5.0 gm/dl Globulin 3.3 2.5-4.0 gm/dl Albumin/Globulin Ratio 0.6 0.9-2 Assessment and Plan This is a 76 y/o female with hx of COPD on home O2 @ 4L, falls, chronic LE edema and generalized weakness, p/w acute worsening of SOB with acute hypoxic respiratory failure prior to arrival with VBG showing CO2 of 47 requiring immediate intubation. Was successfully extubated on 11/25/16. Patient had acute decline of O2 sat even in BiPAP today requiring intubation. Her BP was also declining. [employer]ident Responder is consulted and patient is transferred to the ICU for further management. * Acute on Chronic hypoxic/hypercapnic Respiratory Failure - Patient is intubated - It is most likely multifactorial, 2/2 COPD exacerbation, pneumonia and diastolic CHF - Patient was evaluated by speech and recommendation aspiration precaution. Additional recommendation noted below - CXR (12/06): Interval development of interstitial thickening suggestive of pulmonary edema. Dense left lower lobe opacity with volume loss which may reflect left lower lobe atelectasis or pneumonia. - Pulmonary was consulted and appreciate Dr. Knapp's recommendations. - Continue to monitor in ICU * COPD exacerbation - Patient's last FEV1 was 36% (2012) and most likely it is becoming progressively worse - D/keyon Spiriva and Brovana per pulmonary given patient can't use the proper technique for the inhaler - C/w Daliresp, Pulmicort and PO singular 10mg - C/w Atrovent 0.5mg and Xopenex 1.25 q6h scheduled and q2h prn - Started on IV solu medrol 40mg Q8h - Started on Duoneb q4h - Pulmonology on board and will continue to appreciate Dr. Knapp's recommendations. * Bibasilar consolidation - Sputum culture showed Achromobacter xylosoxidans and H. Flu - BCx (-) - Patient had speech and swallow evaluation on 11/25. Recommendations as follows: 1. Moist mechanical soft diet as tolerated 2. STRICT aspiration precautions, straws OK with small single sips. Fully upright for p.o. intake & for 30 minutes after intake. Supervision while eating. 3. Small bites, small single sips. Frequent rest breaks and slow rate. No talking while eating. Modify diet to pureed if have difficulty. - ID restarted IV imipenem/cilastatin (Day #10) and Levaquin (Day #3) given increasing WBC and worsening current respiratory symptoms. - Continue to appreciate ID recommendations * Abdominal pain/burning - KUB showed mild gastric distention. There is gas within nondilated large and small bowel loops. There is stool within the rectal vault. - Abd US showed 1. Cholelithiasis. No evidence of ductal dilatation. 2. Nondiagnostic evaluation of the pancreas 3. Slight increase in renal cortical echogenicity suggesting medical renal disease - LFTs significant for elevated direct bilirubin and low AST. Decrease total protein and AST (0.3,12), normal lipase (115) - Pain could be 2/2 cholelithiasis vs constipation (no BM for 3 days). Given the pain is more general, mostly on the lower abdominal and imaging showing possible fecal impaction, it is most likely 2/2 constipation - Miralax and milk of mag prn for constipation *Leukocytosis - could be 2/2 steroid or persistent infection - Patient is currently on antibiotics IV imipenem/cilastatin (Day #10) and Levaquin (Day #3) for possible PNA/UTI - Will continue to monitor. * Paroxysmal Atrial Fibrillation - Patient converted to sinus rhythm - Rate control with PO Amiodarone 400mg BID - Digoxin 0.125 mg M, W and F per Cardiology given amiodarone can increase the level of digoxin (dioxin level 1.7) - Metoprolol 5mg q4h prn - Per Cardiology Dr. Dos Santos no anticoagulant is warranted at this moment given she is in sinus rhythm. [facility] it will be beneficial but also might be too risky. Will continue to appreciate his recommendations. * Diastolic CHF with preserved EF - Patient current symptoms and recent Echo suggestive of CHF - Echo (11/22): * The LV is normal in size. * There is normal left ventricular wall thickness. * All left ventricular wall segments are hyperdynamic, with LV EF 70 %. * The left ventricular wall motion is normal. * Dilated RV with normal function. * The left atrium is moderately dilated. * Aortic valve sclerosis mild, without significant aortic valvular stenosis. * Dilated inferior vena cava with reduced collapsibility with sniff indicates an elevated RA pressure of 15 mmHg - CXR (12/02): Increasing left pleural effusion with progressive left lower lobe atelectasis/consolidation. - CXR 11/29/16 shows persistent bilateral pleural effusions with associated bibasal airspace opacities - CXR (12/04): Resistant bilateral pleural effusions left greater than right with associated bibasal airspace opacities. - D/keyon Lasix given hypotension - Continue to monitor I/O. Continue to monitor renal function to prevent azotemia * GI bleeding/Rectal bleeding/low Hgb - Stool occult blood is positive - Hgb is trending down, for now will continue to monitor transfuse if needed - Hold Heparin - The etiology is unclear. ?could be 2/2 anticoagulant - Consult GI and recommended IV Protonix 40mg BID. No plan for invasive workup at this time given her multiple co-morbidities. * UTI - UCx was negative. - Patient was restarted on IV imipenem/cilastatin (Day #8) and Levaquin (Day #1) * Chronic conditions: Hyperlipidemia: Continue Atorvastatin 40mg daily HTN: Continue Propranolol 80mg BID. Continue to hold Lisinopril and Triamtrene/HCTZ because of hypotension DM: no basal inulin only sliding scale * DVT Prophylaxis - Hold heparin drip for GI bleed - SCD and TEDs * Code status - Full Code Resident Tracking Resident Involvement: Resident Care Provided Care Provided: Adult Hospital Medicine Reviewed: Pt Seen/Exam by Me History Assessment/Plan I have reviewed the medical record and performed a history and physical examination of this patient today. I have discussed the case with Dr. Hill. The above note reflects my findings, conclusions, and recommendations. contacted by nurse - patient refused to use bipap overnight. minimally responsive in am. bipap resumed. contacted and made aware called again - half hour later - pulse ox dropped, low HR and drop in BP. patient completely unresponsive. rapid response called. started IV bolus. IV epinehprine. contacted field placement director. intubated. transferred to ICU at bedside - updated with condition. re-reviewed the poor prognosis of overall cardio-pul function due to end stage copd and multiple other comorbidities
[2016-12-06] MEDS: LEValbuterol HFA 15GM INHALER INH SCH ×2 (14:27→19:23)
[2016-12-06] MEDS ORDERED: IPRATROPIUM BROMIDE HFA INHALER INH SCH ×3 (15:00→23:00)
[2016-12-06] MEDS: PROPOFOL IV EMULSION 10 MG/ML 100 ML VIAL IV PRN (18:26)
--- NOTE | 2016-12-06 18:35 | DIAGNOSTIC IMAGING REPORT ---
CHEST ONE VIEW PORTABLE HISTORY: r/o pneumothorax COMPARISON: Chest 12/06/2016. FINDINGS: Nasogastric tube terminates below the diaphragm. The tip is not included on this study. Endotracheal tube terminates 2.5 cm from the unruly. Right PICC terminates in the SVC. No pneumothorax. Small left pleural effusion and left basilar densities have improved. Mild interstitial thickening/pulmonary edema has also improved. Linear density right lung base persist. IMPRESSION: 1. Satisfactory support line placement. 2. No pneumothorax. 3. Improvement in the interstitial thickening/edema. 3. Improvement in the small left pleural effusion/left basilar densities. Electronically signed by: Morris Ness M.D. 12/06/2016 6:33 PM Dictated Date/Time: 12/06/2016 6:31 PM
[2016-12-06] MEDS: IPRATROPIUM BROMIDE HFA INHALER INH SCH (19:24)
--- NOTE | 2016-12-06 19:30 | Critical Care Progress Note ---
Critical Care Progress Note Date of Service Dec 06, 2016. Attending Dr. Noé Jackson I was called to see the patient emergently in room 204. She was obtunded, hypotensive, hypoxic. The heart rate was dropping as well, in the 40s, no response to Atropine. I gave her 0.5 amps of epinephrine with some improvement in the BP and HR, started on Levophed and fluid bolus. After that, I intubated her, did not require any sedation, had dry secretions sitting in the oropharynx. Post intubation she started waking up, tracking, following commands b/l, requiring some sedation. The family wants to pursue aggressive care. 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 Already being treated for PNA Problems: COPD exacerbation Pneumonia - Achromobacter Xylosoxidans, Haemo. Influ. 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 I don't believe that she would do well, she would be better off with a tracheostomy at this point, and I would arrange it early next week. Continue Caryn Garcia CVS: Rate/rhythm control with amiodarone Hypotensive, not clear of the reason, but she was close to going into cardiac arrest when I saw her. Continue on Levophed, hold antihypertensive meds. IV fluids for the time being, Normosol at 75, received 1 liter bolus No anticoagulation per medicine notes ID: On imipenem and Levaquin for PNA Continue Renal: IV fluids, monitor urine output H/h trending down, monitor Off anticoagulation GI: Start tube feeding Heme positive stool Holding heparin products Heme: Monitor CBC, no need to transfuse for now WBC elevated, but also on steroids DVT prophylaxis: SCDs Consults & Procedures Consultants: Pulmonary ID Cardiology Procedures: None Data Medications: Current Inpatient Medications Medications (Trade) Dose Ordered Sig/Omkar Route Start Time Stop Time Status Last Admin Dose Admin Acetaminophen (Tylenol Tab) 650 mg Q4H PRN PO 11/21/16 15:45 12/21/16 15:44 12/02/16 13:15 650 MG Atorvastatin Calcium (Lipitor Tab) 40 mg DAILY PO 11/22/16 09:00 12/22/16 08:59 12/06/16 07:57 40 MG Montelukast Sodium (Singulair Tab) 10 mg QPM PO 11/21/16 21:00 12/21/16 20:59 12/05/16 20:48 10 MG Propranolol HCl (Inderal Tab) 80 mg BID PO 11/21/16 21:00 12/21/16 20:59 12/06/16 07:57 80 MG Roflumilast (Daliresp Tab) 500 mcg DAILY PO 11/22/16 09:00 12/22/16 08:59 12/06/16 07:57 500 MCG Senna (Senokot Tab) 8.6 mg QAM PO 11/22/16 09:00 12/22/16 08:59 12/06/16 07:57 8.6 MG Aspirin (Aspirin Chew) 81 mg DAILY PO 11/23/16 09:00 12/23/16 08:59 12/05/16 09:00 81 MG Heparin Sodium (Porcine) (Heparin 10 Unit/ ml 5 ml Flush) 5 ml PRN PRN FLUSH 11/25/16 04:15 12/25/16 04:14 12/03/16 14:21 5 ML Ondansetron HCl (Zofran Tab) 4 mg Q4H PRN PO 11/26/16 00:30 12/26/16 00:29 11/26/16 03:06 4 MG Insulin Aspart (novoLOG ASPART) SLIDING SCALE ACHS SC 11/26/16 08:00 12/26/16 07:59 12/06/16 11:28 2 UNITS Arformoterol Tartrate (Brovana 15MCG/ 2ML Neb Soln) 15 mcg BIDR INH 11/26/16 20:00 12/26/16 19:59 12/06/16 07:08 15 MCG Budesonide (Pulmicort Respules 0.5MG/ 2ML Neb Soln) 0.5 mg BIDR INH 11/26/16 20:00 12/26/16 19:59 12/06/16 07:08 0.5 MG Tiotropium Coulter (Spiriva Handihaler Inhaler) 1 puff DAILY INH 11/27/16 09:00 12/27/16 08:59 12/06/16 07:56 1 PUFF Lisinopril (Zestril Tab) 5 mg DAILY PO 11/27/16 09:00 12/27/16 08:59 Future Hold 11/27/16 10:01 5 MG Triamterene/HCTZ 1 cap 1 cap DAILY PO 11/27/16 09:00 12/27/16 08:59 Future Hold 11/27/16 10:02 1 CAP Heparin Sodium/ Dextrose (Heparin 25,000 Unit/500ml D5W) 500 ml @ 30 mls/hr [id number] PRN IV 11/26/16 16:15 12/26/16 16:14 Future Hold 11/30/16 10:36 30 MLS/HR Enteral Nutritional Formula 1 can 1 can BIDM PO 11/26/16 16:30 12/26/16 16:29 12/01/16 07:44 1 CAN Diltiazem HCl/ Dextrose (Cardizem Inj/D5 100ml) 125 ml @ 0 mls/hr Q0M PRN IV 11/28/16 08:45 12/28/16 08:44 Future Hold Ipratropium Coulter (Atrovent 0.02% 0.5MG/2.5ML Neb) 0.5 mg Q2R PRN INH 11/28/16 09:15 12/28/16 09:14 12/04/16 11:21 0.5 MG Levalbuterol (Xopenex 1.25MG/ 0.5ML Neb) 1.25 mg Q2R PRN INH 11/28/16 09:15 12/28/16 09:14 12/04/16 11:21 1.25 MG Metoprolol Tartrate (Lopressor Iv) 5 mg Q4H PRN IV 11/28/16 19:45 12/28/16 19:44 11/30/16 08:11 5 MG Acetaminophen/ Hydrocodone Bitart ([place] 5/325 Tab) 1 tab Q4H PRN PO 11/30/16 12:30 12/14/16 12:29 11/30/16 21:46 1 TAB Amiodarone HCl (Cordarone Tab) 400 mg BID PO 12/01/16 21:00 12/31/16 20:59 12/06/16 07:56 400 MG Enteral Nutritional Formula (Boost Breeze Nutritional Drink) 1 box BID PO 12/02/16 21:00 01/01/17 20:59 12/05/16 20:47 1 BOX Pantoprazole Sodium 40 mg 40 mg BID PO 12/03/16 21:00 01/02/17 20:59 12/06/16 07:57 40 MG Imipenem/ Cilastatin Sodium 500 mg/Dextrose 110 ml @ 100 mls/hr Q8H IV 12/04/16 12:00 12/11/16 11:59 12/06/16 12:40 100 MLS/HR Levofloxacin/Prmx (Levaquin / D5W/ Premixed D5W) 150 ml @ 100 mls/hr Q48H IV 12/04/16 11:00 12/11/16 10:59 12/06/16 11:31 100 MLS/HR Levofloxacin 1 ea 1 ea UD PRN N/A 12/04/16 10:45 01/03/17 10:44 Furosemide/ Albumin Human (Lasix Inj/ Albumin 25%) 54 ml @ 54 mls/hr DAILY IV 12/05/16 09:00 12/08/16 08:59 Future Hold 12/05/16 11:07 54 MLS/HR Magnesium Hydroxide (Milk Of Magnesia Susp) 30 ml Q6H PRN PO 12/05/16 11:00 01/04/17 10:59 12/06/16 08:01 30 ML Polyethylene 17 gm 17 gm DAILY PRN PO 12/05/16 11:00 01/04/17 10:59 Norepinephrine Bitartrate 8 mg/ Dextrose 508 ml @ 0 mls/hr Q0M PRN IV 12/06/16 09:30 01/05/17 09:29 12/06/16 10:52 41.2 MLS/HR Methylprednisolone Sodium Succinate/ Syringe (Solu-Medrol IV/ Syringe) 0.64 ml @ 1.5 mls/min Q8H IV 12/06/16 10:00 01/05/17 09:59 12/06/16 18:19 1.5 MLS/MIN Albuterol/ Ipratropium (Duoneb) 3 ml Q4R INH 12/06/16 12:00 01/05/17 11:59 Future Hold Propofol 1 dose 1 dose UD PRN IV 12/06/16 10:57 12/09/16 10:56 12/06/16 18:26 1 DOSE Parenteral Electrolyte Solution (Normosol R) 1,000 ml @ 75 mls/hr [id number] IV 12/06/16 12:15 01/05/17 11:14 12/06/16 12:20 75 MLS/HR Ipratropium Coulter (Atrovent Hfa Inhaler) 4 puffs Q6R INH 12/06/16 15:00 01/05/17 14:59 12/06/16 14:27 4 PUFFS Levalbuterol (Xopenex Hfa Inhaler) 4 puffs Q6R INH 12/06/16 15:00 01/05/17 14:59 12/06/16 14:27 4 PUFFS I & O: 24-Hour Column 12/06/16 08:00 Intake Total 540 ml Output Total 1175 ml Balance -635 ml Vital Signs: Date Time Temp Pulse Resp B/P Pulse Ox O2 Delivery O2 Flow Rate FiO2 12/06/16 16:00 100 Mechanical Ventilator 50 12/06/16 16:00 50 12/06/16 16:00 36.5 67 16 133/50 96 Mechanical Ventilator 50 12/06/16 14:10 50 12/06/16 14:00 64 16 126/46 100 Mechanical Ventilator 60 12/06/16 12:00 60 12/06/16 12:00 100 Mechanical Ventilator 60 12/06/16 12:00 36.3 63 18 144/52 100 Mechanical Ventilator 60 12/06/16 11:25 60 12/06/16 10:50 50 12/06/16 09:48 100 12/06/16 08:01 88 BiPAP 50 Venturi Mask 12/06/16 07:35 63 87 50 12/06/16 07:13 52 98 60 12/06/16 07:11 52 22 98 Venturi Mask 60 12/06/16 06:57 36.7 51 16 107/24 98 BiPAP 12/06/16 04:28 Venturi Mask 40 12/06/16 03:55 36.3 56 18 122/46 95 CPAP 12/06/16 01:54 63 92 100 12/06/16 01:53 63 22 65 Venturi Mask 50 12/06/16 00:05 Venturi Mask 40 12/05/16 23:00 36.5 69 18 145/50 90 Mask 7.0 12/05/16 20:16 Venturi Mask 40 12/05/16 19:39 75 24 92 Venturi Mask 50 12/05/16 18:50 37.0 75 20 134/38 91 Venturi Mask 12.0 Laboratory Results: Last 24 Hours Test 12/05/16 20:27 12/06/16 05:47 12/06/16 09:13 12/06/16 10:41 Bedside Glucose 130 mg/dl 190 mg/dl White Blood Count 19.02 K/uL Red Blood Count 2.73 M/uL Hemoglobin 8.4 g/dL Hematocrit 28.8 % Mean Corpuscular Volume 105.5 fL Mean Corpuscular Hemoglobin 30.8 pg Mean Corpuscular Hemoglobin Concent 29.2 g/dl RDW Standard Deviation 52.7 fL RDW Coefficient of Variation 13.6 % Platelet Count 228 K/uL Mean Platelet Volume 9.2 fL Activated Partial Thromboplast Time 21.7 SECONDS Partial Thromboplastin Ratio 0.8 Sodium Level 149 mmol/L Potassium Level 3.3 mmol/L Chloride Level 92 mmol/L Carbon Dioxide Level 56 mmol/L Anion Gap 1.0 mmol/L Blood Urea Nitrogen 60 mg/dl Creatinine 1.10 mg/dl Est Creatinine Clear Calc Drug Dose 42.4 ml/min Estimated GFR () 56.1 Estimated GFR (Non- 48.4 BUN/Creatinine Ratio 55.0 Random Glucose 167 mg/dl Calcium Level 9.7 mg/dl Blood Gas Sample Site R Radial Bedside Blood Gas pH (LAB) 7.34 Bedside Blood Gas pCO2 (LAB) 103 mmHg Bedside Blood Gas pO2 (LAB) 262 mmHg Bedside Blood Gas HCO3 (LAB) 55 meq/L Bedside Blood Gas Total CO2 < 5 mEq/l Bedside Blood Gas Base Excess (LAB) 29.0 meq/L Bedside Blood Gas O2 Saturation 100.0 % Rd Test Pass Oxygen Delivery Device Ventilator Bedside Oxygen Rate (breaths/min) 16 Blood Gas Minute Ventilation 6.3 Bedside FiO2 100 % Blood Gas Tidal Volume 450 Blood Gas PEEP 5 Test 12/06/16 11:18 12/06/16 11:45 12/06/16 16:25 Bedside Glucose 196 mg/dl 171 mg/dl White Blood Count 23.28 K/uL Red Blood Count 2.48 M/uL Hemoglobin 7.8 g/dL Hematocrit 26.1 % Mean Corpuscular Volume 105.2 fL Mean Corpuscular Hemoglobin 31.5 pg Mean Corpuscular Hemoglobin Concent 29.9 g/dl RDW Standard Deviation 52.0 fL RDW Coefficient of Variation 13.6 % Platelet Count 259 K/uL Mean Platelet Volume 9.5 fL Sodium Level 146 mmol/L Potassium Level 3.9 mmol/L Chloride Level 98 mmol/L Carbon Dioxide Level 50 mmol/L Anion Gap -2.0 mmol/L Blood Urea Nitrogen 61 mg/dl Creatinine 1.20 mg/dl Est Creatinine Clear Calc Drug Dose 38.9 ml/min Estimated GFR () 50.5 Estimated GFR (Non- 43.6 BUN/Creatinine Ratio 50.6 Random Glucose 188 mg/dl Lactic Acid Level 1.1 mmol/L Calcium Level 8.2 mg/dl Ionized Calcium 1.12 mmol/l Phosphorus Level 4.3 mg/dl Magnesium Level 2.8 mg/dl Total Bilirubin 0.6 mg/dl Aspartate Amino Transf (AST/SGOT) 27 U/L Alanine Aminotransferase (ALT/SGPT) 25 U/L Alkaline Phosphatase 54 U/L Total Protein 5.2 gm/dl Albumin 1.9 gm/dl Globulin 3.3 gm/dl Albumin/Globulin Ratio 0.6
--- NOTE | 2016-12-06 19:37 | Procedure Note ---
Procedure Note Date of Service Dec 06, 2016. Procedure Note Endotracheal Intubation Indication: Acute respiratory failure, airway protection. The patient was on 100% oxygen via BIPAP prior to the procedure. Suction, airway equipment, respiratory equipment, and appropriate personnel were prepared prior to the initiation of the procedure. No sedation was required for the intubation Using the GlideScope, I inserted with ease a 7.5 ET tube through the vocal cords. Had dried secretions stuck in the oropharynx The cuff inflated without signs of malfunction. There were bilateral breath sounds, positive colormetric change, no gastric sounds Post intubation she received Versed 2 mg CXR confirmed the ET tube in good position, above the unruly
[2016-12-06] MEDS ORDERED: PEPTAMEN 1.5 CAL 1000ML BAG PO SCH (20:00)
[2016-12-06] MEDS: MONTELUKAST SOD 10 MG TAB PO SCH (21:11)
[2016-12-07] VITALS (15 sets, daily range): BP systolic 90–134; BP diastolic 32–57; PULSE 58–78; TEMP 36.3–37.5; O2SAT 92–99
[2016-12-07] MEDS: METHYLPREDNISOLONE IV 40 MG in SYRINGE 0 ML IV SCH ×3 (01:55→17:44)
[2016-12-07] MEDS: NOREPINEPHRINE BIT INJ 8 MG in DEXTROSE 5% 500ML 500 ML IV PRN (01:55)
[2016-12-07] MEDS: IPRATROPIUM BROMIDE HFA INHALER INH SCH ×4 (02:23→20:08)
[2016-12-07] MEDS: LEValbuterol HFA 15GM INHALER INH SCH ×5 (02:23→21:47)
[2016-12-07] MEDS: NORMOSOL R 1,000 ML IV SCH (02:50)
[2016-12-07] MEDS: PROPOFOL IV EMULSION 10 MG/ML 100 ML VIAL IV PRN (02:51)
[2016-12-07] MEDS: IMIPENEM/CILASTATIN IV 500 MG in DEXTROSE 5% 100ML 100 ML IV SCH ×3 (04:27→20:09)
[2016-12-07 05:29] LABS: MEAN CELL VOLUME 101.6 fL (80-100); MEAN CORPUSCULAR HEMOGLOBIN 30.9 pg (25-34); MEAN CORPUSCULAR HGB CONC 30.4 g/dl (32-36); MEAN PLATELET VOLUME 9.7 fL (7.4-10.4); PLATELET COUNT 243 K/uL (130-400); RED BLOOD COUNT 2.46 M/uL (4.2-5.4); WHITE BLOOD COUNT 17.28 K/uL (4.8-10.8)
[2016-12-07 05:31] LABS: ISTAT ALLEN TEST Pass; ISTAT ARTERIAL BLOOD GAS HCO3 47 meq/L (19-24); ISTAT ARTERIAL BLOOD GAS PCO2 51 mmHg (35-46); ISTAT ARTERIAL BLOOD GAS PO2 72 mmHg (80-95); ISTAT ARTERIAL BLOOD GAS pH 7.57 (7.35-7.45); ISTAT CARBON DIOXIDE > 40 mEq/l (24-31); ISTAT DELIVERY SYSTEM Ventilator; ISTAT FIO2 50 %; ISTAT PEEP 5; ISTAT RATE 16; ISTAT SITE R Radial; Vt 450
[2016-12-07 05:40] LABS: PARTIAL THROMBOPLASTIN RATIO 0.9
[2016-12-07 06:26] LABS: CALCIUM 8.9 mg/dl (8.5-10.1); CREATININE 1.3 mg/dl (0.60-1.20); MAGNESIUM 2.7 mg/dl (1.8-2.4)
[2016-12-07 06:27] LABS: PHOSPHORUS 0.7 mg/dl (2.5-4.9); POTASSIUM 2.9 mmol/L (3.5-5.1)
[2016-12-07] MEDS ORDERED: NURSING VERBAL MED ORDER ONE (06:45)
[2016-12-07] MEDS: INSULIN ASPART 100 UNITS/ML 3 ML PEN SC SCH ×5 (06:45→23:48)
[2016-12-07] MEDS ORDERED: POTASSIUM PHOSPHATE INJ 30 MMOL in SODIUM CHLORIDE 0.9% 500ML 500 ML IV SCH (07:15)
[2016-12-07] MEDS: BOOST VANILLA PO SCH ×2 (07:15)
--- NOTE | 2016-12-07 07:42 | DIAGNOSTIC IMAGING REPORT ---
CHEST ONE VIEW PORTABLE CLINICAL HISTORY: COPD exacerbation COMPARISON STUDY: Chest radiograph December 06, 2016. FINDINGS: A right PICC remains in place. The tip of the endotracheal tube is 3.1 cm above the unruly. The tip of the nasogastric tube is below the lower aspect of this image but at least within the proximal stomach. There is no pneumothorax. A small left pleural effusion is unchanged. Bibasilar opacities persist. There is pulmonary vascular congestion. The appearance of the chest is unchanged. IMPRESSION: 1. Satisfactory positioning of lines and tubes. 2. No pneumothorax. 3. Persistent bibasilar opacities and a small left pleural effusion. Electronically signed by: Cristobal Farah M.D. 12/07/2016 7:40 AM Dictated Date/Time: 12/07/2016 7:38 AM
[2016-12-07] MEDS: ARFORMOTEROL TART 15MCG/2ML VIAL INH SCH ×2 (07:49→20:00)
[2016-12-07] MEDS: BUDESONIDE 0.5 MG/2 ML VIAL (PULMICORT) INH SCH ×2 (07:50→20:00)
[2016-12-07] MEDS: TIOTROPIUM BROMIDE 5 PUFF/90 MCG INH INH SCH (08:44)
[2016-12-07 08:46] LABS: BUN/CREATININE RATIO 43.9 (10-20); CALCIUM 8.6 mg/dl (8.5-10.1); CREATININE 1.5 mg/dl (0.60-1.20); MAGNESIUM 2.6 mg/dl (1.8-2.4); POTASSIUM 2.8 mmol/L (3.5-5.1)
[2016-12-07] MEDS: BOOST BREEZE NUTRITION DRINK 1 BOX PO SCH (09:00)
[2016-12-07] MEDS: ASPIRIN 81 MG CHEW PO SCH (09:02)
[2016-12-07] MEDS: AMIODARONE 200 MG TAB PO SCH ×2 (09:03→21:34)
[2016-12-07] MEDS: PANTOprazole SOD 40 MG TAB PO SCH (09:03)
[2016-12-07] MEDS: ATORVASTATIN 40 MG TAB PO SCH (09:03)
[2016-12-07] MEDS: ROFLUMILAST 500 MCG TAB PO SCH (09:03)
[2016-12-07] MEDS: SENNA 8.6 MG TAB PO SCH (09:04)
[2016-12-07 09:05] LABS: PHOSPHORUS 1.2 mg/dl (2.5-4.9)
--- NOTE | 2016-12-07 09:47 | PROGRESS NOTE ---
DATE: 12/07/2016 HISTORY OF PRESENT ILLNESS: The patient is sedated on the ventilator, comfortable, minute ventilation of about [address] Knapp's notes reviewed and notes from Dr. Umanzor reviewed. The patient developed respiratory failure, hypotension and hypoxemia, was intubated after being given some epinephrine, had dry secretions in the oropharynx. Dr. Knapp thought the patient may have had an episode of aspiration. She is on antibiotics, steroids, full ventilator support now. She does carry a history of chronic obstructive lung disease, pneumonia and congestive heart failure. Secretions are scant. Her rhythm has been stable. Her blood pressure is 134/46-112/32, oxygen saturation is 97% on 50% on the ventilator. Peak airway pressures are about 28. I\T\O is 2095 in, 725 out. Weight 74.8 kilograms, which is stable. According to nurses' note, she had a fairly stable night last night, had some propofol and Levophed, has been started on some tube feedings in the form of Peptamen 20 mL per hour and is tolerating that well. OBJECTIVE: HEENT: Eye exams unremarkable. Nose exam normal. She is intubated, endotracheal tube appears to be in good position. No subcutaneous emphysema is noted. There is hyperinflation of the thorax. HEART: Regular rate and rhythm. Heart sounds are very distant. No murmurs are heard. LUNGS: Reveal some coarse breath sounds bilaterally. Few crackles at the left base. ABDOMEN: Soft, nontender. EXTREMITIES: She has no cyanosis, clubbing or edema. Some ecchymosis over the dorsum of the left foot is noted. IMAGING: Chest x-ray reveals basilar opacities with a small left pleural effusion. Endotracheal tube is about 3 cm above the unruly. LABORATORY DATA: White count 17.28, hemoglobin was down to 7.6, hematocrit 25%, platelet count of 243,000. Blood gas revealed pH 7.57, pCO2 of 51, pO2 of 72. Before intubation, her pCO2 was 103 with a pH of 7.34. CO2 is 46 on the electrolytes with a potassium of 2.9. She also was hypophosphatemic. Sugars have been in the 112-249 range. IMPRESSION: 1. Respiratory failure secondary to chronic obstructive pulmonary disease, aspiration pneumonia with bibasilar pulmonary infiltrates. 2. Hypophosphatemia. 3. Profound anemia. RECOMMENDATIONS: 1. At this point, I think transfusion may be helpful. I know by the literature anything greater than 7 is appropriate, but it may help to improve her oxygen carrying capacity and aid in extubation. 2. Continue with ventilator support with weaning trials. We may want to cut back on the minute ventilation since she has respiratory acidosis with metabolic alkalosis now with compensation for the respiratory failure, hypercapnia. 3. Replace the phosphorous. 4. Continue with her present antimicrobial agents and use the Xopenex 2 puffs 4 times a day along with the Atrovent. I will continue on the inhaled steroids as well. Imipenem and Levaquin should be adequate antimicrobial agents at this point.
--- NOTE | 2016-12-07 09:56 | Cardiology Follow-Up ---
Subjective Date of Service: Dec 07, 2016. Pt evaluation today including: physical exam, lab review, review of studies, review of inpatient medication list, conversation w/ attending History of Present Illness This is a 76-year-old woman who has a history of severe COPD (with a long smoking history) as well as diabetes mellitus, hypertension, hypercholesterolemia and anemia. She was admitted with respiratory failure and required intubation, she has now improved and has been extubated. This morning at around 8:00 she went into atrial fibrillation with a rapid heart rate, she was given a 15 mg bolus of diltiazem and she remains in atrial fibrillation with a somewhat rapid heart rate. She denies palpitations. From the cardiovascular standpoint as far as I know she has never had coronary artery disease identified, she has however evidently had atrial fibrillation in the past. Although I cannot find any direct mention of it in the office records she reports having it for many years and "doctoring" for it. By that she tells me that she was on Inderal for her atrial fibrillation, and she tells me she was on aspirin but denies ever being offered an anticoagulant. I can't tell from her history where or when the arrhythmia was diagnosed or how often she had it or its nature (brief or persistent episodes) and although she does say that at time she will have an irregular heart rate that might last days at a time. She had remained in atrial fibrillation therefore I started her on intravenous diltiazem for rate control, which worked fairly well after she received several doses of digoxin. I also started intravenous heparin. She remained unaware of the arrhythmia. She had recurrent atrial fibrillation and we started intravenous amiodarone on 11/28/2016. After several days she had good control of her arrhythmia, she remained on intravenous heparin however had a drop in hemoglobin and that was discontinued. She was converted to oral amiodarone ( 400mg BID) on 12/01/2016 with overlap of IV until 12/02/2016. She continued to have good control of her atrial fibrillation, with no episodes until the weekend. She is now intubated and sedated. She is receiving amiodarone by crushed pills via NGT. Social History Smoking Status: Current Every Day Smoker Review of Systems Respiratory: No shortness of breath Cardiac: No chest pain, No edema ROS limited by intubation Medications Cardiovascular: Item Value Date Time Amiodarone HCl 400 mg 12/01/16 2100 (Cordarone Tab) BID/PO 12/07/16902 Aspirin 81 mg 11/23/16 09 (Aspirin Chew) DAILY/PO 12/07/16901 Atorvastatin 40 mg 11/22/16899 Calcium DAILY/PO 12/07/16902 (Lipitor Tab) Objective Vital Signs Past 12 Hours Date Time Temp Pulse Resp B/P Pulse Ox O2 Delivery O2 Flow Rate FiO2 12/07/16 07:51 50 12/07/16 06:08 71 14 102/32 97 Mechanical Ventilator 50 12/07/16 05:17 50 12/07/16 05:10 50 12/07/16 04:00 36.3 68 16 134/46 97 Mechanical Ventilator 50 12/07/16 04:00 50 12/07/16 04:00 95 Mechanical Ventilator 50 12/07/16 02:24 50 12/07/16 02:14 69 19 118/41 97 Mechanical Ventilator 50 12/07/16 00:01 36.5 67 21 119/42 94 Mechanical Ventilator 50 12/07/16 00:01 50 12/07/16 00:01 95 Mechanical Ventilator 50 12/06/16 23:59 50 12/06/16 22:00 70 16 135/55 92 Mechanical Ventilator 50 Last Recorded Weight-Kilograms: 74.800 Intake & Output 8-Hour Column 12/06/16 12/07/16 12/07/16 16:00 00:00 08:00 Intake Total 1021 ml 1024 ml 1232 ml Output Total 250 ml 300 ml 250 ml Balance 771 ml 724 ml 982 ml 24-Hour Column 12/07/16 08:00 Intake Total 3277 ml Output Total 800 ml Balance 2477 ml Physical Exam Constitutional: Level of Distress: NAD Lungs: Respiratory effort: good air movement Auscultation: decreased breath sounds, pertinent finding (Intubated) Cardiovascular: Heart Auscultation: RRR, no murmurs, no rubs, no gallops Peripheral Pulses: Bruits: none appreciated Extremities: no edema Data Laboratory Results: Last 24 Hours Test 12/06/16 10:41 12/06/16 11:18 12/06/16 11:45 12/06/16 16:25 Blood Gas Sample Site R Radial Bedside Blood Gas pH (LAB) 7.34 Bedside Blood Gas pCO2 (LAB) 103 mmHg Bedside Blood Gas pO2 (LAB) 262 mmHg Bedside Blood Gas HCO3 (LAB) 55 meq/L Bedside Blood Gas Total CO2 < 5 mEq/l Bedside Blood Gas Base Excess (LAB) 29.0 meq/L Bedside Blood Gas O2 Saturation 100.0 % Rd Test Pass Oxygen Delivery Device Ventilator Bedside Oxygen Rate (breaths/min) 16 Blood Gas Minute Ventilation 6.3 Bedside FiO2 100 % Blood Gas Tidal Volume 450 Blood Gas PEEP 5 Bedside Glucose 196 mg/dl 171 mg/dl White Blood Count 23.28 K/uL Red Blood Count 2.48 M/uL Hemoglobin 7.8 g/dL Hematocrit 26.1 % Mean Corpuscular Volume 105.2 fL Mean Corpuscular Hemoglobin 31.5 pg Mean Corpuscular Hemoglobin Concent 29.9 g/dl RDW Standard Deviation 52.0 fL RDW Coefficient of Variation 13.6 % Platelet Count 259 K/uL Mean Platelet Volume 9.5 fL Sodium Level 146 mmol/L Potassium Level 3.9 mmol/L Chloride Level 98 mmol/L Carbon Dioxide Level 50 mmol/L Anion Gap -2.0 mmol/L Blood Urea Nitrogen 61 mg/dl Creatinine 1.20 mg/dl Est Creatinine Clear Calc Drug Dose 38.9 ml/min Estimated GFR () 50.5 Estimated GFR (Non- 43.6 BUN/Creatinine Ratio 50.6 Random Glucose 188 mg/dl Lactic Acid Level 1.1 mmol/L Calcium Level 8.2 mg/dl Ionized Calcium 1.12 mmol/l Phosphorus Level 4.3 mg/dl Magnesium Level 2.8 mg/dl Total Bilirubin 0.6 mg/dl Aspartate Amino Transf (AST/SGOT) 27 U/L Alanine Aminotransferase (ALT/SGPT) 25 U/L Alkaline Phosphatase 54 U/L Total Protein 5.2 gm/dl Albumin 1.9 gm/dl Globulin 3.3 gm/dl Albumin/Globulin Ratio 0.6 Test 12/06/16 21:32 12/07/16 04:55 12/07/16 05:17 12/07/16 05:37 Bedside Glucose 112 mg/dl 249 mg/dl White Blood Count 17.28 K/uL Red Blood Count 2.46 M/uL Hemoglobin 7.6 g/dL Hematocrit 25.0 % Mean Corpuscular Volume 101.6 fL Mean Corpuscular Hemoglobin 30.9 pg Mean Corpuscular Hemoglobin Concent 30.4 g/dl RDW Standard Deviation 50.3 fL RDW Coefficient of Variation 13.4 % Platelet Count 243 K/uL Mean Platelet Volume 9.7 fL Activated Partial Thromboplast Time 24.3 SECONDS Partial Thromboplastin Ratio 0.9 Sodium Level 144 mmol/L Potassium Level 2.9 mmol/L Chloride Level 94 mmol/L Carbon Dioxide Level 46 mmol/L Anion Gap 4.0 mmol/L Blood Urea Nitrogen 60 mg/dl Creatinine 1.30 mg/dl Est Creatinine Clear Calc Drug Dose 35.9 ml/min Estimated GFR () 45.8 Estimated GFR (Non- 39.5 BUN/Creatinine Ratio 46.0 Random Glucose 214 mg/dl Calcium Level 8.9 mg/dl Phosphorus Level 0.7 mg/dl Magnesium Level 2.7 mg/dl Blood Gas Sample Site R Radial Bedside Blood Gas pH (LAB) 7.57 Bedside Blood Gas pCO2 (LAB) 51 mmHg Bedside Blood Gas pO2 (LAB) 72 mmHg Bedside Blood Gas HCO3 (LAB) 47 meq/L Bedside Blood Gas Total CO2 > 40 mEq/l Bedside Blood Gas Base Excess (LAB) 25.0 meq/L Bedside Blood Gas O2 Saturation 96.0 % Rd Test Pass Oxygen Delivery Device Ventilator Bedside Oxygen Rate (breaths/min) 16 Bedside FiO2 50 % Blood Gas Tidal Volume 450 Blood Gas PEEP 5 Test 12/07/16 08:14 12/07/16 08:40 Sodium Level 144 mmol/L Potassium Level 2.8 mmol/L Chloride Level 93 mmol/L Carbon Dioxide Level 46 mmol/L Anion Gap 5.0 mmol/L Blood Urea Nitrogen 66 mg/dl Creatinine 1.50 mg/dl Est Creatinine Clear Calc Drug Dose 31.1 ml/min Estimated GFR () 38.5 Estimated GFR (Non- 33.3 BUN/Creatinine Ratio 43.9 Random Glucose 274 mg/dl Calcium Level 8.6 mg/dl Phosphorus Level 1.2 mg/dl Magnesium Level 2.6 mg/dl Telemetry reviewed: SR, one episode of AF several days ago for several hours. Assessment and Plan #1. Atrial fibrillation: Her and her are certainly familiar with the term atrial fibrillation and tell me that she had it diagnosed many years ago. I can't find specifics about it, but she has never been offered an anticoagulant but she was on Inderal presumably for the arrhythmia. She probably has paroxysmal atrial fibrillation based on this information but I can' t be sure. Her heart rate was fairly well controlled on diltiazem and digoxin, although her blood pressure was borderline. Amiodarone appeared to convert the rhythm (or at least the arrhythmia converted to sinus rhythm on amiodarone intravenously) but she continued to have paroxysmal atrial fibrillation for several days. However more recently she has had very good control of her atrial fibrillation and remains on oral amiodarone. She started oral 12/01/2016 and I discontinued the IV amiodarone 12/02/2016, that may have allowed recurrence of her atrial fibrillation as it can take some time to load orally. I would continue 400 BID for about 1 week (tomorrow) then drop to 400 daily. She was on digoxin as well for rate control, her digoxin level 12/02/2016 was 1.7, amiodarone does raise digoxin levels. We should probably reduce the dose if she needs rate control, right now rhythm is in good control. I would use 0.125 mg Wednesday and Wednesday if needed. I will give .125 mg today. #2. Anticoagulation: At the moment we don't need anticoagulation since she is in sinus rhythm, over the long run from the cardiovascular standpoint it would be better for her to be on an anticoagulant but it may be too risky. We do not need to make that determination at this time. Thank you for allowing me to participate in her care.
[2016-12-07] MEDS ORDERED: MIDAZOLAM HCL 1 MG/ML 2ML VIAL IV PRN (10:00)
[2016-12-07] MEDS ORDERED: DIGOXIN 0.125 MG TAB PO ONE (10:00)
[2016-12-07] MEDS ORDERED: PHARMACY GLYCEMIC MGMT CONSULT PRN (10:37)
[2016-12-07 12:23] LABS: ISTAT ALLEN TEST Pass; ISTAT ARTERIAL BLOOD GAS HCO3 48 meq/L (19-24); ISTAT ARTERIAL BLOOD GAS PCO2 76 mmHg (35-46); ISTAT ARTERIAL BLOOD GAS PO2 119 mmHg (80-95); ISTAT ARTERIAL BLOOD GAS pH 7.41 (7.35-7.45); ISTAT CARBON DIOXIDE < 5 mEq/l (24-31); ISTAT DELIVERY SYSTEM Ventilator; ISTAT FIO2 50 %; ISTAT PEEP 5; ISTAT SITE L Radial
--- NOTE | 2016-12-07 13:04 | Pharmacy Progress Note ---
Glycemic Control Intl Consult Date of Service Dec 07, 2016. Scope Glycemic Pharmacist consulted by Dr Hightower on 12/07/16 for glycemic control and to write orders per [facility] inpatient glycemic control protocol Objective Weight (Kilograms): 74.800 Accuchecks BSG (last 24hrs): Test 12/06/16 16:25 12/06/16 21:32 12/07/16 04:55 12/07/16 05:37 Bedside Glucose 171 mg/dl (70-90) 112 mg/dl (70-90) 249 mg/dl (70-90) Random Glucose 214 mg/dl (70-99) Test 12/07/16 08:14 Random Glucose 274 mg/dl (70-99) Laboratory Data (last 24hrs) Test 12/07/16 04:55 12/07/16 08:14 Anion Gap 4.0 mmol/L 5.0 mmol/L BUN/Creatinine Ratio 46.0 43.9 Blood Urea Nitrogen 60 mg/dl 66 mg/dl Creatinine 1.30 mg/dl 1.50 mg/dl Potassium Level 2.9 mmol/L 2.8 mmol/L Sodium Level 144 mmol/L 144 mmol/L White Blood Count 17.28 K/uL HbA1c Test 12/02/16 05:30 Hemoglobin A1c 6.0 %(4.5-5.6) H Recent Pertinent Medications Outpatient Anti-diabetic Regimen: * no prior dx of DM, no out-pt meds for DM * A1c = 5.8 % 05/01/16 --> 6% 12/02/16 The patient is currently receiving: * Basal insulin: No Lantus given in last 24 hours * Correctional Insulin: NovoLog Correction per scale ACHS Goal Range: Low 140 mg/dL - High 180 mg/dL Correction Factor: 40 mg/dL/unit * Prandial insulin: Per carb ratio of 1 unit per 13 grams CHO consumed Risk Factors for Insulin Resistance: * Steroids: Solu-Medrol 40mg IV Q 8 hours * Pressors: Levophed * Infection: acute on chronic resp failure secondary to PNX / COPD exac; H influ + Achromobacter in sputum; abx changed to Primaxin + Levaquin * Diet: Peptamen @ 10mL/hr * Mechanical Ventilation: intubated Assessment & Plan ASSESSMENT: 11/24/16 * Patient remains on mechanical ventilation at this time * Tube feeds will continue; steroid may begin taper today/soon * Glycemic control deteriorated with the addition of continuous tube feeds. Although this patient does not have a prior h/o DM, the IV Solu-Medrol is making her much more insulin resistant and carb sensitive. * Will add a set nutritional coverage to help cover tube feeds while the patient is on high dose steroids * May consider a single dose of Lantus to help obtain glycemic control PLAN FOR INPATIENT GLYCEMIC CONTROL: * Basal insulin * No basal insulin at this time - reassess need daily * Bolus insulin * Change BSGs to every 6 hours while ventilated and NPO * Change correction factor to 30 mg/dl/unit * Give set dose of NovoLog every 6 hours to cover tube feeds * Change goal range to Low 140 mg/dL - High 180 mg/dL per ADA recommendations * Reassess insulin needs with each step down in steroid dose * Please note that the plan above was derived based on current level of insulin resistance and hospital stress. These recommendations are appropriate for inpatient admission only. Plan of care upon discharge will need to be reassessed to avoid potential outpatient hypo/hyperglycemia. Thank you.
--- NOTE | 2016-12-07 13:10 | Critical Care Progress Note ---
Critical Care Progress Note Date of Service Dec 07, 2016. ICU Day ICU Day Number: 2 (Though was in ICU previously during admission) Attending Dr. Krause Subjective When evaluated this morning, the patient was still intubated. Her eyes were opening and she would occasionally squeeze fingers in response to questions. Objective GENERAL: Awake, eyes open in response to voice, intubated HENT: Normocephalic, atraumatic. EYES: Normal conjunctiva. Sclera non-icteric. NECK: Supple. No nuchal rigidity. FROM. No JVD. RESPIRATORY: Crackles to left base. CARDIAC: Regular rate, normal rhythm. Extremities warm and well perfused. Pulses equal. ABDOMEN: Soft, non-distended. No tenderness to palpation. No rebound or guarding. LOWER EXTREMITIES: Calves are equal size bilaterally and non-tender. No edema. No discoloration. NEURO: GCS 9T. SKIN: No rash or jaundice noted. Current SOFA Score SOFA Score Response (Comments) Value PaO2/FiO2 (mmHg) < 300 2 SaO2 / FIO2 67 - 141 3 [place] Coma Score < 6 4 Level of Hypotension MAP less than 70 1 Total 10 Assessment & Plan Ms Rueda is a 76 year old female with end-stage COPD, with left lobar pneumonia , s/p second intubation during this admission for acute on chronic respiratory failure. Problems: 1. COPD exacerbation 2. Pneumonia - Achromobacter Xylosoxidans, Haemo. Influ. (betalactamase +) 3. Emphysema 4. A-fib 5. Diastolic HF, preserved EF 6. Hypophosphatemia, hypokalemia, Hypomagnesemia 7. 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 Respiratory: Vent Settings: rate 14, tidal volume 450, PEEP 5, FiO2 50% Chest X-ray: Reviewed HOB up 30 degrees: Yes Chlorhexidine: Yes Respiratory prophylaxis: Levalbuterol, Ipratropium [place] - Will aim to extubate today. - Will ultrasound Left base of lungs and consider CT scan Cardiovascular: Atrial fibrillation. CV drips: Was on diltiazem, and was given dose of digoxin 0.125mg today. EKG: Last on 12/01. - Will obtain new EKG today. - Will stop diltiazem today. - Will obtain a digoxin level tomorrow AM. Fluids/Renal: IV Fluids: Was receiving Normosol. Electrolytes: Repeated labs this AM, pt has persistent hypophosphatemia Net Urine: +974mL cumulative Ferguson: Present since admission (11/21). - Will stop Normosol today. - We will keep the ferguson for one more day due to recent KARINA and need for strict I&O management. - Will provide 30mmoL K Phos today and recheck a BMP at 4pm GI/Nutrition: Feeding: On Peptamen 1.5 Tube Feeds. Daily nutritional requirement is 1375kcl/ day. Goal is 50mL continuous feeds. Prophylaxis: On PPI Bowel movements: Last on 12/07. Stool softeners: Received Miralax this AM. - Continue to monitor slow BMs, Will consider enema. - Hazmat Cdl Driver consult today Endocrine: Last 24 hour glucose: Ranging 112 to 249 Insulin protocol: Ordered today Is on IV steroids at 40mg q8h - Random cortisol level ordered today - We will decrease the IV steroids over a slow 2 week taper. Will discuss with Dr Krause Hematology: Hemoglobin 7.6 hematocrit 25 DVT prophylaxis: Heparin 5000 3 times a day Infectious Disease/Immunology: Tmax: 37.2 Antimicrobials: Imipenem: Completed 5 day course 11/25 to 11/30. Restarted on 12/04, currently on day 4. Levaquin Day 4 Cultures: Blood: No growth x 2 Urine: Less than 1000 CFU x 2 Nasal: MRSA swab negative x 1, repeat pending Sputum 11/21: Positive for H. influenze (beta lactamase +) and Achromobacter xylosoxidahs, both organisms sensitive to Imipenem. - We will recheck a Procalcitonin level today, and tomorrow AM as well. CODE STATUS: FULL CODE Resident Physician Supervision Note: Dr. Hightower was resident physician during care of patient. I separately evaluated patient and did history and exam. I discussed the case with the resident and generally agree with the findings and plan. Patient had improvement in her hypercarbia, was able to be extubated to BiPAP today successfully. The care had an extended discussion with the family today in event of cardiac arrest she is now a DO NOT RESUSCITATE. I do believe that the patient is an end-stage terminal condition with end-stage COPD. On limited bedside ultrasound today it was noted she had a pleural effusion with fibrinous stranding in the left lower lobe. Patient and family were consented for a pleural catheter that will be instilled with TPA and DNase to break up the loculations. Please see procedure note for further details. Discussed the case with infectious disease hope to de-escalate to Primaxin as single agent. Will check a digoxin level in the morning, the patient's renal function has been tenuous at best, digoxin is for rate control. We have added heparin 3 times a day for chemical prophylaxis. I have personally spent 50 minutes of critical care time in the direct management of this patient. This is a life/limb threatening event. This includes time spent evaluating patient, direct bedside care, chart review, placing orders, interpretation of diagnostic studies, discussion with consultants, patient, and family members, as well as other required patient management activities. This time is exclusive of all separately billable procedures, and teaching time and separate from and in addition to any other critical care service time. Documented By: Elie Krause DO [facility] Score Date Score Was Generated: Dec 07, 2016 [facility] Total: 24 Consults & Procedures Consultants: Pulmonary ID Cardiology Procedures: Intubated 11/21/16, Extubated and again Intubated 12/06/16 Data Medications: Current Inpatient Medications Medications (Trade) Dose Ordered Sig/Omkar Route Start Time Stop Time Status Last Admin Dose Admin Acetaminophen (Tylenol Tab) 650 mg Q4H PRN PO 11/21/16 15:45 12/21/16 15:44 12/02/16 13:15 650 MG Atorvastatin Calcium (Lipitor Tab) 40 mg DAILY PO 11/22/16 09:00 12/22/16 08:59 12/07/16 09:03 40 MG Montelukast Sodium (Singulair Tab) 10 mg QPM PO 11/21/16 21:00 12/21/16 20:59 12/06/16 21:11 10 MG Propranolol HCl (Inderal Tab) 80 mg BID PO 11/21/16 21:00 12/21/16 20:59 Future Hold 12/06/16 07:57 80 MG Roflumilast (Daliresp Tab) 500 mcg DAILY PO 11/22/16 09:00 12/22/16 08:59 12/07/16 09:03 500 MCG Senna (Senokot Tab) 8.6 mg QAM PO 11/22/16 09:00 12/22/16 08:59 12/07/16 09:04 8.6 MG Aspirin (Aspirin Chew) 81 mg DAILY PO 11/23/16 09:00 12/23/16 08:59 12/07/16 09:02 81 MG Heparin Sodium (Porcine) (Heparin 10 Unit/ ml 5 ml Flush) 5 ml PRN PRN FLUSH 11/25/16 04:15 12/25/16 04:14 12/03/16 14:21 5 ML Ondansetron HCl (Zofran Tab) 4 mg Q4H PRN PO 11/26/16 00:30 12/26/16 00:29 11/26/16 03:06 4 MG Arformoterol Tartrate (Brovana 15MCG/ 2ML Neb Soln) 15 mcg BIDR INH 11/26/16 20:00 12/26/16 19:59 12/06/16 07:08 15 MCG Budesonide (Pulmicort Respules 0.5MG/ 2ML Neb Soln) 0.5 mg BIDR INH 11/26/16 20:00 12/26/16 19:59 12/06/16 07:08 0.5 MG Tiotropium [place] (Spiriva Handihaler Inhaler) 1 puff DAILY INH 11/27/16 09:00 12/27/16 08:59 12/06/16 07:56 1 PUFF Lisinopril (Zestril Tab) 5 mg DAILY PO 11/27/16 09:00 12/27/16 08:59 Future Hold 11/27/16 10:01 5 MG Triamterene/HCTZ (Dyazide 37.5/25 Mg Cap) 1 cap DAILY PO 11/27/16 09:00 12/27/16 08:59 Future Hold 11/27/16 10:02 1 CAP Enteral Nutritional Formula (Boost) 1 can BIDM PO 11/26/16 16:30 12/26/16 16:29 Future Hold 12/01/16 07:44 1 CAN Levalbuterol (Xopenex 1.25MG/ 0.5ML Neb) 1.25 mg Q2R PRN INH 11/28/16 09:15 12/28/16 09:14 12/04/16 11:21 1.25 MG Metoprolol Tartrate (Lopressor Iv) 5 mg Q4H PRN IV 11/28/16 19:45 12/28/16 19:44 Future Hold 11/30/16 08:11 5 MG Acetaminophen/ Hydrocodone Bitart ([place] 5/325 Tab) 1 tab Q4H PRN PO 11/30/16 12:30 12/14/16 12:29 11/30/16 21:46 1 TAB Amiodarone HCl (Cordarone Tab) 400 mg BID PO 12/01/16 21:00 12/31/16 20:59 12/07/16 09:03 400 MG Enteral Nutritional Formula 1 box 1 box BID PO 12/02/16 21:00 01/01/17 20:59 Future Hold 12/05/16 20:47 1 BOX Imipenem/ Cilastatin Sodium 500 mg/Dextrose 110 ml @ 100 mls/hr Q8H IV 12/04/16 12:00 12/11/16 11:59 12/07/16 11:47 100 MLS/HR Levofloxacin/Prmx (Levaquin / D5W/ Premixed D5W) 150 ml @ 100 mls/hr Q48H IV 12/04/16 11:00 12/11/16 10:59 12/06/16 11:31 100 MLS/HR Levofloxacin 1 ea 1 ea UD PRN N/A 12/04/16 10:45 01/03/17 10:44 Furosemide/ Albumin Human (Lasix Inj/ Albumin 25%) 54 ml @ 54 mls/hr DAILY IV 12/05/16 09:00 12/08/16 08:59 Future Hold 12/05/16 11:07 54 MLS/HR Magnesium Hydroxide (Milk Of Magnesia Susp) 30 ml Q6H PRN PO 12/05/16 11:00 01/04/17 10:59 12/06/16 08:01 30 ML Polyethylene 17 gm 17 gm DAILY PRN PO 12/05/16 11:00 01/04/17 10:59 12/07/16 09:14 17 GM Norepinephrine Bitartrate 8 mg/ Dextrose 508 ml @ 0 mls/hr Q0M PRN IV 12/06/16 09:30 01/05/17 09:29 12/07/16 01:55 28.1 MLS/HR Methylprednisolone Sodium Succinate/ Syringe (Solu-Medrol IV/ Syringe) 0.64 ml @ 1.5 mls/min Q8H IV 12/06/16 10:00 01/05/17 09:59 12/07/16 09:04 1.5 MLS/MIN Albuterol/ Ipratropium (Duoneb) 3 ml Q4R INH 12/06/16 12:00 01/05/17 11:59 Future Hold Levalbuterol (Xopenex Hfa Inhaler) 4 puffs Q6R INH 12/06/16 15:00 01/05/17 14:59 12/07/16 07:50 4 PUFFS Ipratropium [place] (Atrovent Hfa Inhaler) 4 puffs Q6R INH 12/06/16 21:00 01/05/17 20:59 12/07/16 07:50 4 PUFFS Enteral Nutritional Formula (Peptamen 1.5) 1,000 ml UD PO 12/06/16 20:00 01/05/17 19:59 12/06/16 22:06 1,000 ML Midazolam HCl (Versed Inj) 2 mg Q4H PRN IV 12/07/16 10:00 01/06/17 09:59 Heparin Sodium (Porcine) 5000 unit 5,000 unit Q12 SQ 12/07/16 21:00 01/06/17 20:59 Pantoprazole Sodium/Syringe (Protonix Inj/ Syringe) 10 ml @ 5 mls/min DAILY@11 IV 12/08/16 11:00 01/07/17 10:59 Miscellaneous Information (Consult Glycemic Management Pharmacy) 1 ea UD PRN N/A 12/07/16 10:37 01/06/17 10:36 Insulin Aspart (novoLOG ASPART) SLIDING SCALE Q6 SC 12/07/16 12:00 01/06/17 11:59 12/07/16 12:14 2 UNITS I & O: 24-Hour Column 12/07/16 08:00 Intake Total 3277 ml Output Total 800 ml Balance 2477 ml Vital Signs: Date Time Temp Pulse Resp B/P Pulse Ox O2 Delivery O2 Flow Rate FiO2 12/07/16 12:00 50 12/07/16 12:00 Mechanical Ventilator 50 12/07/16 12:00 37.2 75 28 117/43 99 Mechanical Ventilator 50 12/07/16 11:46 78 12/07/16 11:40 50 12/07/16 10:00 73 13 116/46 98 Mechanical Ventilator 50 12/07/16 08:00 36.9 69 12 95/43 99 Mechanical Ventilator 50 12/07/16 08:00 Mechanical Ventilator 50 12/07/16 08:00 50 12/07/16 07:51 50 12/07/16 06:08 71 14 102/32 97 Mechanical Ventilator 50 12/07/16 05:17 50 12/07/16 05:10 50 12/07/16 04:00 36.3 68 16 134/46 97 Mechanical Ventilator 50 12/07/16 04:00 50 12/07/16 04:00 95 Mechanical Ventilator 50 12/07/16 02:24 50 12/07/16 02:14 69 19 118/41 97 Mechanical Ventilator 50 12/07/16 00:01 36.5 67 21 119/42 94 Mechanical Ventilator 50 12/07/16 00:01 50 12/07/16 00:01 95 Mechanical Ventilator 50 12/06/16 23:59 50 12/06/16 22:00 70 16 135/55 92 Mechanical Ventilator 50 12/06/16 20:00 50 12/06/16 20:00 36.2 64 16 128/43 96 Mechanical Ventilator 50 12/06/16 20:00 100 Mechanical Ventilator 50 12/06/16 19:24 50 12/06/16 18:15 50 12/06/16 18:00 66 16 99/40 94 12/06/16 16:00 100 Mechanical Ventilator 50 12/06/16 16:00 50 12/06/16 16:00 36.5 67 16 133/50 96 Mechanical Ventilator 50 12/06/16 14:10 50 12/06/16 14:00 64 16 126/46 100 Mechanical Ventilator 60 Laboratory Results: Last 24 Hours Test 12/06/16 16:25 12/06/16 21:32 12/07/16 04:55 12/07/16 05:17 Bedside Glucose 171 mg/dl 112 mg/dl White Blood Count 17.28 K/uL Red Blood Count 2.46 M/uL Hemoglobin 7.6 g/dL Hematocrit 25.0 % Mean Corpuscular Volume 101.6 fL Mean Corpuscular Hemoglobin 30.9 pg Mean Corpuscular Hemoglobin Concent 30.4 g/dl RDW Standard Deviation 50.3 fL RDW Coefficient of Variation 13.4 % Platelet Count 243 K/uL Mean Platelet Volume 9.7 fL Activated Partial Thromboplast Time 24.3 SECONDS Partial Thromboplastin Ratio 0.9 Sodium Level 144 mmol/L Potassium Level 2.9 mmol/L Chloride Level 94 mmol/L Carbon Dioxide Level 46 mmol/L Anion Gap 4.0 mmol/L Blood Urea Nitrogen 60 mg/dl Creatinine 1.30 mg/dl Est Creatinine Clear Calc Drug Dose 35.9 ml/min Estimated GFR () 45.8 Estimated GFR (Non- 39.5 BUN/Creatinine Ratio 46.0 Random Glucose 214 mg/dl Calcium Level 8.9 mg/dl Phosphorus Level 0.7 mg/dl Magnesium Level 2.7 mg/dl Blood Gas Sample Site R Radial Bedside Blood Gas pH (LAB) 7.57 Bedside Blood Gas pCO2 (LAB) 51 mmHg Bedside Blood Gas pO2 (LAB) 72 mmHg Bedside Blood Gas HCO3 (LAB) 47 meq/L Bedside Blood Gas Total CO2 > 40 mEq/l Bedside Blood Gas Base Excess (LAB) 25.0 meq/L Bedside Blood Gas O2 Saturation 96.0 % Rd Test Pass Oxygen Delivery Device Ventilator Bedside Oxygen Rate (breaths/min) 16 Bedside FiO2 50 % Blood Gas Tidal Volume 450 Blood Gas PEEP 5 Test 12/07/16 05:37 12/07/16 08:14 12/07/16 08:40 12/07/16 12:05 Bedside Glucose 249 mg/dl Sodium Level 144 mmol/L Potassium Level 2.8 mmol/L Chloride Level 93 mmol/L Carbon Dioxide Level 46 mmol/L Anion Gap 5.0 mmol/L Blood Urea Nitrogen 66 mg/dl Creatinine 1.50 mg/dl Est Creatinine Clear Calc Drug Dose 31.1 ml/min Estimated GFR () 38.5 Estimated GFR (Non- 33.3 BUN/Creatinine Ratio 43.9 Random Glucose 274 mg/dl Calcium Level 8.6 mg/dl Phosphorus Level 1.2 mg/dl Magnesium Level 2.6 mg/dl Random Cortisol 24.07 mcg/dl Blood Gas Sample Site L Radial Bedside Blood Gas pH (LAB) 7.41 Bedside Blood Gas pCO2 (LAB) 76 mmHg Bedside Blood Gas pO2 (LAB) 119 mmHg Bedside Blood Gas HCO3 (LAB) 48 meq/L Bedside Blood Gas Total CO2 < 5 mEq/l Bedside Blood Gas Base Excess (LAB) 24.0 meq/L Bedside Blood Gas O2 Saturation 98.0 % Rd Test Pass Oxygen Delivery Device Ventilator Bedside FiO2 50 % Blood Gas PEEP 5 Test 12/07/16 12:10 Bedside Glucose (other) 235 mg/dl Resident Tracking Resident Involvement: Resident Care Provided Care Provided: Adult Hospital Medicine (ICU)
--- NOTE | 2016-12-07 16:34 | Palliative Care Consultation ---
Consultation Date of Consultation: Dec 07, 2016. Requesting Physician: Dr. Hightower Attending Physician: Dr. Blevins Reason for Consultation: Goals of care History of Present Illness This 76 year old female patient presented to the ED 16 days ago with c/o increased shortness of breath, weakness, fatigue and fall. History obtained motly from record, some from family. She has a history of severe COPD, oxygen dependent on 5LNC at home. Prior to arrival, per EMS, patient had desaturated into the 70's and arrived on BIPAP. IN the ED, patient was minimally responsive , though saturation improved into the 90's on BIPAP. Following a VBG showing CO2 of 47, she was intubated. CXR showed bibasilar consolidation. She was given IV Fluids, Duonebs ,and a dose of Levaquin; admitted to ICU on ventilatory. Patient was able to be extubated on 11/25. She then had dysrhythmia issues, going into afib rvr requiring IV amiodarone and cardizem. She did convert back to NSR at some point, she was transferred to telemetry unit. Was doing okay on PCU, requiring Bipap on and off, sometimes venti mask. Yesterday, patient became unresponsive on bipap, bradycardic in 30-40s. She was given atropine, epinephrine, reintubated and sent to ICU again. She was extubated again today, found to have loculated left lower lobe effusion for which she will have a chest tube placed later today. Patient overall has not improved since admission , her COPD is end-stage. Palliative care consulted to establish goals of care. I met with the patient's family: Keanu, daughter Rosa Isela, son Marty, grandson Stef, and brother Leandro. We discussed her current condition and her family is aware that her COPD is worsening and is not going to get better. We had a very long discussion regarding code status, they are all in agreement that the patient would not "want to live this way," and they decided to make her a DNR/DNI. Keanu, patient's , is the final decision maker. Bill states that the patient always told him that she would never want to live on machines such as with a trach or feeding tube. For now, the family would like to continue current treatment. Their goal is for her to get well enough that she may be able to interact with them, participate in her decision making, and possible get transferred to SNF. See plan below. Past Medical/Surgical History Medical History: Severe COPD Chronic respiratory failure Hyperlipidemia Atrial fibrillation Hypertension Tobacco use Bronchitis Back problems Social History Smoking Status: Current Every Day Smoker Marital Status: Housing Status: lives with family Occupation Status: retired Review of Systems Respiratory: + dyspnea at rest, + shortness of breath Cardiac: No chest pain Abdomen: No nausea, No pain, No vomiting full ROS not able to be obtained- patient drowsy and SOB Allergies Coded Allergies: Penicillins (Verified Allergy, Intermediate, HIVES, 08/16/14) Tetracycline (Verified Allergy, Mild, RASH, 08/16/14) Doxycycline (Verified Allergy, Unknown, RASH, 08/16/14) Sulfamethoxazole (Verified Allergy, Unknown, 08/16/14) Replaces SULFAMETHOXAZ Trimethoprim (Verified Allergy, Unknown, 08/16/14) Replaces SULFAMETHOXAZ Cephalosporins (Verified Adverse Reaction, Mild, CEPHALEXIN--GI, 11/22/16) Medications Current Inpatient Medications Medications (Trade) Dose Ordered Sig/Omkar Route Start Time Stop Time Status Last Admin Dose Admin Acetaminophen (Tylenol Tab) 650 mg Q4H PRN PO 11/21/16 15:45 12/21/16 15:44 12/02/16 13:15 650 MG Atorvastatin Calcium (Lipitor Tab) 40 mg DAILY PO 11/22/16 09:00 12/22/16 08:59 12/07/16 09:03 40 MG Montelukast Sodium (Singulair Tab) 10 mg QPM PO 11/21/16 21:00 12/21/16 20:59 12/06/16 21:11 10 MG Propranolol HCl (Inderal Tab) 80 mg BID PO 11/21/16 21:00 12/21/16 20:59 Future Hold 12/06/16 07:57 80 MG Roflumilast (Daliresp Tab) 500 mcg DAILY PO 11/22/16 09:00 12/22/16 08:59 12/07/16 09:03 500 MCG Senna (Senokot Tab) 8.6 mg QAM PO 11/22/16 09:00 12/22/16 08:59 12/07/16 09:04 8.6 MG Aspirin (Aspirin Chew) 81 mg DAILY PO 11/23/16 09:00 12/23/16 08:59 12/07/16 09:02 81 MG Heparin Sodium (Porcine) (Heparin 10 Unit/ ml 5 ml Flush) 5 ml PRN PRN FLUSH 11/25/16 04:15 12/25/16 04:14 12/03/16 14:21 5 ML Ondansetron HCl (Zofran Tab) 4 mg Q4H PRN PO 11/26/16 00:30 12/26/16 00:29 11/26/16 03:06 4 MG Arformoterol Tartrate (Brovana 15MCG/ 2ML Neb Soln) 15 mcg BIDR INH 11/26/16 20:00 12/26/16 19:59 12/06/16 07:08 15 MCG Budesonide (Pulmicort Respules 0.5MG/ 2ML Neb Soln) 0.5 mg BIDR INH 11/26/16 20:00 12/26/16 19:59 12/06/16 07:08 0.5 MG Tiotropium [place] (Spiriva Handihaler Inhaler) 1 puff DAILY INH 11/27/16 09:00 12/27/16 08:59 12/06/16 07:56 1 PUFF Lisinopril (Zestril Tab) 5 mg DAILY PO 11/27/16 09:00 12/27/16 08:59 Future Hold 11/27/16 10:01 5 MG Triamterene/HCTZ (Dyazide 37.5/25 Mg Cap) 1 cap DAILY PO 11/27/16 09:00 12/27/16 08:59 Future Hold 11/27/16 10:02 1 CAP Enteral Nutritional Formula (Boost) 1 can BIDM PO 11/26/16 16:30 12/26/16 16:29 Future Hold 12/01/16 07:44 1 CAN Levalbuterol (Xopenex 1.25MG/ 0.5ML Neb) 1.25 mg Q2R PRN INH 11/28/16 09:15 12/28/16 09:14 12/04/16 11:21 1.25 MG Metoprolol Tartrate (Lopressor Iv) 5 mg Q4H PRN IV 11/28/16 19:45 12/28/16 19:44 Future Hold 11/30/16 08:11 5 MG Acetaminophen/ Hydrocodone Bitart ([place] 5/325 Tab) 1 tab Q4H PRN PO 11/30/16 12:30 12/14/16 12:29 11/30/16 21:46 1 TAB Amiodarone HCl (Cordarone Tab) 400 mg BID PO 12/01/16 21:00 12/31/16 20:59 12/07/16 09:03 400 MG Enteral Nutritional Formula 1 box 1 box BID PO 12/02/16 21:00 01/01/17 20:59 Future Hold 12/05/16 20:47 1 BOX Imipenem/ Cilastatin Sodium 500 mg/Dextrose 110 ml @ 100 mls/hr Q8H IV 12/04/16 12:00 12/11/16 11:59 12/07/16 11:47 100 MLS/HR Levofloxacin/Prmx (Levaquin / D5W/ Premixed D5W) 150 ml @ 100 mls/hr Q48H IV 12/04/16 11:00 12/11/16 10:59 12/06/16 11:31 100 MLS/HR Levofloxacin 1 ea 1 ea UD PRN N/A 12/04/16 10:45 01/03/17 10:44 Furosemide/ Albumin Human (Lasix Inj/ Albumin 25%) 54 ml @ 54 mls/hr DAILY IV 12/05/16 09:00 12/08/16 08:59 Future Hold 12/05/16 11:07 54 MLS/HR Magnesium Hydroxide (Milk Of Magnesia Susp) 30 ml Q6H PRN PO 12/05/16 11:00 01/04/17 10:59 12/06/16 08:01 30 ML Polyethylene 17 gm 17 gm DAILY PRN PO 12/05/16 11:00 01/04/17 10:59 12/07/16 09:14 17 GM Norepinephrine Bitartrate 8 mg/ Dextrose 508 ml @ 0 mls/hr Q0M PRN IV 12/06/16 09:30 01/05/17 09:29 12/07/16 01:55 28.1 MLS/HR Methylprednisolone Sodium Succinate/ Syringe (Solu-Medrol IV/ Syringe) 0.64 ml @ 1.5 mls/min Q8H IV 4/9/17 10:00 01/05/17 09:59 12/07/16 09:04 1.5 MLS/MIN Albuterol/ Ipratropium (Duoneb) 3 ml Q4R INH 12/06/16 12:00 01/05/17 11:59 Future Hold Levalbuterol (Xopenex Hfa Inhaler) 4 puffs Q6R INH 12/06/16 15:00 01/05/17 14:59 12/07/16 14:17 4 PUFFS Ipratropium [place] (Atrovent Hfa Inhaler) 4 puffs Q6R INH 12/06/16 21:00 01/05/17 20:59 12/07/16 14:17 4 PUFFS Enteral Nutritional Formula (Peptamen 1.5) 1,000 ml UD PO 12/06/16 20:00 01/05/17 19:59 12/06/16 22:06 1,000 ML Midazolam HCl (Versed Inj) 2 mg Q4H PRN IV 12/07/16 10:00 01/06/17 09:59 Heparin Sodium (Porcine) 5000 unit 5,000 unit Q12 SQ 12/07/16 21:00 01/06/17 20:59 Pantoprazole Sodium/Syringe (Protonix Inj/ Syringe) 10 ml @ 5 mls/min DAILY@11 IV 12/08/16 11:00 01/07/17 10:59 Miscellaneous Information (Consult Glycemic Management Pharmacy) 1 ea UD PRN N/A 12/07/16 10:37 01/06/17 10:36 Insulin Aspart (novoLOG ASPART) SLIDING SCALE Q6 SC 12/07/16 12:00 01/06/17 11:59 12/07/16 12:14 2 UNITS Insulin Aspart (novoLOG ASPART) 1 units Q6 SC 12/07/16 18:00 01/06/17 17:59 Physical Exam Date Time Temp Pulse Resp B/P Pulse Ox O2 Delivery O2 Flow Rate FiO2 12/07/16 14:18 58 24 96 BiPAP/CPAP 50 12/07/16 14:00 73 24 116/51 92 BiPAP 50 12/07/16 12:52 95 50 12/07/16 12:00 50 12/07/16 12:00 Mechanical Ventilator 50 12/07/16 12:00 37.2 75 28 117/43 99 Mechanical Ventilator 50 12/07/16 11:46 78 12/07/16 11:40 50 12/07/16 10:00 73 13 116/46 98 Mechanical Ventilator 50 12/07/16 08:00 36.9 69 12 95/43 99 Mechanical Ventilator 50 12/07/16 08:00 Mechanical Ventilator 50 12/07/16 08:00 50 12/07/16 07:51 50 12/07/16 06:08 71 14 102/32 97 Mechanical Ventilator 50 12/07/16 05:17 50 12/07/16 05:10 50 12/07/16 04:00 36.3 68 16 134/46 97 Mechanical Ventilator 50 12/07/16 04:00 50 12/07/16 04:00 95 Mechanical Ventilator 50 12/07/16 02:24 50 12/07/16 02:14 69 19 118/41 97 Mechanical Ventilator 50 12/07/16 00:01 36.5 67 21 119/42 94 Mechanical Ventilator 50 12/07/16 00:01 50 12/07/16 00:01 95 Mechanical Ventilator 50 12/06/16 23:59 50 12/06/16 22:00 70 16 135/55 92 Mechanical Ventilator 50 12/06/16 20:00 50 12/06/16 20:00 36.2 64 16 128/43 96 Mechanical Ventilator 50 12/06/16 20:00 100 Mechanical Ventilator 50 12/06/16 19:24 50 12/06/16 18:15 50 12/06/16 18:00 66 16 99/40 94 General Appearance: + mild distress, + obese ENT: hearing grossly normal Neck: no JVD Respiratory: + decreased breath sounds, + crackles (left base), + pertinent finding (slightly dyspneic at rest, states she feels like she can't breathe; requring bipap on/off) Abdomen: normal bowel sounds, non tender, soft Musculoskeletal: pertinent finding (poor muscle mass) Neurologic/Psychiatric: oriented x 3 (but is drowsy/lethargic) Laboratory Results Last 24 Hours Test 12/06/16 16:25 12/06/16 21:32 12/07/16 04:55 12/07/16 05:17 Bedside Glucose 171 mg/dl 112 mg/dl White Blood Count 17.28 K/uL Red Blood Count 2.46 M/uL Hemoglobin 7.6 g/dL Hematocrit 25.0 % Mean Corpuscular Volume 101.6 fL Mean Corpuscular Hemoglobin 30.9 pg Mean Corpuscular Hemoglobin Concent 30.4 g/dl RDW Standard Deviation 50.3 fL RDW Coefficient of Variation 13.4 % Platelet Count 243 K/uL Mean Platelet Volume 9.7 fL Activated Partial Thromboplast Time 24.3 SECONDS Partial Thromboplastin Ratio 0.9 Sodium Level 144 mmol/L Potassium Level 2.9 mmol/L Chloride Level 94 mmol/L Carbon Dioxide Level 46 mmol/L Anion Gap 4.0 mmol/L Blood Urea Nitrogen 60 mg/dl Creatinine 1.30 mg/dl Est Creatinine Clear Calc Drug Dose 35.9 ml/min Estimated GFR () 45.8 Estimated GFR (Non- 39.5 BUN/Creatinine Ratio 46.0 Random Glucose 214 mg/dl Calcium Level 8.9 mg/dl Phosphorus Level 0.7 mg/dl Magnesium Level 2.7 mg/dl Blood Gas Sample Site R Radial Bedside Blood Gas pH (LAB) 7.57 Bedside Blood Gas pCO2 (LAB) 51 mmHg Bedside Blood Gas pO2 (LAB) 72 mmHg Bedside Blood Gas HCO3 (LAB) 47 meq/L Bedside Blood Gas Total CO2 > 40 mEq/l Bedside Blood Gas Base Excess (LAB) 25.0 meq/L Bedside Blood Gas O2 Saturation 96.0 % Rd Test Pass Oxygen Delivery Device Ventilator Bedside Oxygen Rate (breaths/min) 16 Bedside FiO2 50 % Blood Gas Tidal Volume 450 Blood Gas PEEP 5 Test 12/07/16 05:37 12/07/16 08:14 12/07/16 08:40 12/07/16 12:05 Bedside Glucose 249 mg/dl Sodium Level 144 mmol/L Potassium Level 2.8 mmol/L Chloride Level 93 mmol/L Carbon Dioxide Level 46 mmol/L Anion Gap 5.0 mmol/L Blood Urea Nitrogen 66 mg/dl Creatinine 1.50 mg/dl Est Creatinine Clear Calc Drug Dose 31.1 ml/min Estimated GFR () 38.5 Estimated GFR (Non- 33.3 BUN/Creatinine Ratio 43.9 Random Glucose 274 mg/dl Calcium Level 8.6 mg/dl Phosphorus Level 1.2 mg/dl Magnesium Level 2.6 mg/dl Random Cortisol 24.07 mcg/dl Blood Gas Sample Site L Radial Bedside Blood Gas pH (LAB) 7.41 Bedside Blood Gas pCO2 (LAB) 76 mmHg Bedside Blood Gas pO2 (LAB) 119 mmHg Bedside Blood Gas HCO3 (LAB) 48 meq/L Bedside Blood Gas Total CO2 < 5 mEq/l Bedside Blood Gas Base Excess (LAB) 24.0 meq/L Bedside Blood Gas O2 Saturation 98.0 % Rd Test Pass Oxygen Delivery Device Ventilator Bedside FiO2 50 % Blood Gas PEEP 5 Test 12/07/16 12:10 12/07/16 16:00 Bedside Glucose (other) 235 mg/dl Assessment & Plan Palliative Performance Scale: 20 % Problem list: SOB Weakness/deconditioning Respiratory failure Loculated pleural effusion COPD, end-stage Atrial fibrillation Pneumonia CHF Malnutrition Goals of care (Z51.5) Palliative care plan: discussed with patient's Keanu, daughter Rosa Isela, son Marty, grandson Stef, and patient's brother Leandro. Also discussed with Dr. Krause and Dr. Hightower. -DNR/DNI- the entire family agrees on this decision. , Keanu, is the decision maker with support from family. -Patient would not want a trach, feeding tube or any other life-prolonging or heroic treatment once she is at an end-stage medical condition. The entire family is aware that that time is now and that there is little hope of patient recovering to a better condition than she is in now. Patient has been here for over two weeks and the overall picture has no improved. -Goal is for comfort. They would like to continue current treatment, including placing the chest tube, in hopes that they can get the patient well enough to spend time with family and possibly be transferred to SNF. -Hospice was discussed -If there is decline, the family will most likely move to comfort measures only , not wanting any further intubation. -Patient current is SOB, requesting Bipap be placed again. She has no pain at this time. While oriented to person place and time, I do not believe she is well enough to make her own decisions. I began to speak with her about her condition and her goals of care but she really was not able to answer. Thank you kindly for this consult. I will continue to follow.
[2016-12-07 16:36] LABS: BUN/CREATININE RATIO 45.4 (10-20); CALCIUM 8.4 mg/dl (8.5-10.1); CREATININE 1.4 mg/dl (0.60-1.20); MAGNESIUM 2.7 mg/dl (1.8-2.4); PHOSPHORUS 4.2 mg/dl (2.5-4.9); POTASSIUM 3.9 mmol/L (3.5-5.1)
--- NOTE | 2016-12-07 16:38 | Infectious Disease Progress Nt ---
Progress Note Date of Service Dec 07, 2016. Subjective Pt evaluation today including: conversation w/ patient, conversation w/ family , physical exam, chart review, lab review, review of studies, conversation w/ program consultant (Dr. Krause), review of inpatient medication list Patient is doing very poorly this morning. She was transferred to ICU. Her CO2 has been elevated. WBC count has been consistently elevated. She has been on IV Primaxin and Levaquin. Note repeat MRSA screen negative. Repeat procalcitonin pending. Dr. Krause may attempt to drain loculated pleural effusion. All Other Systems: Reviewed and Negative Medications Current Inpatient Medications Medications (Trade) Dose Ordered Sig/Omkar Route Start Time Stop Time Status Last Admin Dose Admin Acetaminophen (Tylenol Tab) 650 mg Q4H PRN PO 11/21/16 15:45 12/21/16 15:44 12/02/16 13:15 650 MG Atorvastatin Calcium (Lipitor Tab) 40 mg DAILY PO 11/22/16 09:00 12/22/16 08:59 12/07/16 09:03 40 MG Montelukast Sodium (Singulair Tab) 10 mg QPM PO 11/21/16 21:00 12/21/16 20:59 12/06/16 21:11 10 MG Propranolol HCl (Inderal Tab) 80 mg BID PO 11/21/16 21:00 12/21/16 20:59 Future Hold 12/06/16 07:57 80 MG Roflumilast (Daliresp Tab) 500 mcg DAILY PO 11/22/16 09:00 12/22/16 08:59 12/07/16 09:03 500 MCG Senna (Senokot Tab) 8.6 mg QAM PO 11/22/16 09:00 12/22/16 08:59 12/07/16 09:04 8.6 MG Aspirin (Aspirin Chew) 81 mg DAILY PO 11/23/16 09:00 12/23/16 08:59 12/07/16 09:02 81 MG Heparin Sodium (Porcine) (Heparin 10 Unit/ ml 5 ml Flush) 5 ml PRN PRN FLUSH 11/25/16 04:15 12/25/16 04:14 12/03/16 14:21 5 ML Ondansetron HCl (Zofran Tab) 4 mg Q4H PRN PO 11/26/16 00:30 12/26/16 00:29 11/26/16 03:06 4 MG Arformoterol Tartrate (Brovana 15MCG/ 2ML Neb Soln) 15 mcg BIDR INH 11/26/16 20:00 12/26/16 19:59 12/06/16 07:08 15 MCG Budesonide (Pulmicort Respules 0.5MG/ 2ML Neb Soln) 0.5 mg BIDR INH 11/26/16 20:00 12/26/16 19:59 12/06/16 07:08 0.5 MG Tiotropium [place] (Spiriva Handihaler Inhaler) 1 puff DAILY INH 11/27/16 09:00 12/27/16 08:59 12/06/16 07:56 1 PUFF Lisinopril (Zestril Tab) 5 mg DAILY PO 11/27/16 09:00 12/27/16 08:59 Future Hold 11/27/16 10:01 5 MG Triamterene/HCTZ (Dyazide 37.5/25 Mg Cap) 1 cap DAILY PO 11/27/16 09:00 12/27/16 08:59 Future Hold 11/27/16 10:02 1 CAP Enteral Nutritional Formula (Boost) 1 can BIDM PO 11/26/16 16:30 12/26/16 16:29 Future Hold 12/01/16 07:44 1 CAN Levalbuterol (Xopenex 1.25MG/ 0.5ML Neb) 1.25 mg Q2R PRN INH 11/28/16 09:15 12/28/16 09:14 12/04/16 11:21 1.25 MG Metoprolol Tartrate (Lopressor Iv) 5 mg Q4H PRN IV 11/28/16 19:45 12/28/16 19:44 Future Hold 11/30/16 08:11 5 MG Acetaminophen/ Hydrocodone Bitart ([place] 5/325 Tab) 1 tab Q4H PRN PO 11/30/16 12:30 12/14/16 12:29 11/30/16 21:46 1 TAB Amiodarone HCl (Cordarone Tab) 400 mg BID PO 12/01/16 21:00 12/31/16 20:59 12/07/16 09:03 400 MG Enteral Nutritional Formula 1 box 1 box BID PO 12/02/16 21:00 01/01/17 20:59 Future Hold 12/05/16 20:47 1 BOX Imipenem/ Cilastatin Sodium 500 mg/Dextrose 110 ml @ 100 mls/hr Q8H IV 12/04/16 12:00 12/11/16 11:59 12/07/16 11:47 100 MLS/HR Levofloxacin/Prmx (Levaquin / D5W/ Premixed D5W) 150 ml @ 100 mls/hr Q48H IV 12/04/16 11:00 12/11/16 10:59 12/06/16 11:31 100 MLS/HR Levofloxacin 1 ea 1 ea UD PRN N/A 12/04/16 10:45 01/03/17 10:44 Furosemide/ Albumin Human (Lasix Inj/ Albumin 25%) 54 ml @ 54 mls/hr DAILY IV 12/05/16 09:00 12/08/16 08:59 Future Hold 12/05/16 11:07 54 MLS/HR Magnesium Hydroxide (Milk Of Magnfabiola Susp) 30 ml Q6H PRN PO 12/05/16 11:00 01/04/17 10:59 12/06/16 08:01 30 ML Polyethylene 17 gm 17 gm DAILY PRN PO 12/05/16 11:00 01/04/17 10:59 12/07/16 09:14 17 GM Norepinephrine Bitartrate 8 mg/ Dextrose 508 ml @ 0 mls/hr Q0M PRN IV 12/06/16 09:30 01/05/17 09:29 12/07/16 01:55 28.1 MLS/HR Methylprednisolone Sodium Succinate/ Syringe (Solu-Medrol IV/ Syringe) 0.64 ml @ 1.5 mls/min Q8H IV 12/06/16 10:00 01/05/17 09:59 12/07/16 09:04 1.5 MLS/MIN Albuterol/ Ipratropium (Duoneb) 3 ml Q4R INH 12/06/16 12:00 01/05/17 11:59 Future Hold Levalbuterol (Xopenex Hfa Inhaler) 4 puffs Q6R INH 12/06/16 15:00 01/05/17 14:59 12/07/16 14:17 4 PUFFS Ipratropium [place] (Atrovent Hfa Inhaler) 4 puffs Q6R INH 12/06/16 21:00 01/05/17 20:59 12/07/16 14:17 4 PUFFS Enteral Nutritional Formula (Peptamen 1.5) 1,000 ml UD PO 12/06/16 20:00 01/05/17 19:59 12/06/16 22:06 1,000 ML Midazolam HCl (Versed Inj) 2 mg Q4H PRN IV 12/07/16 10:00 01/06/17 09:59 Heparin Sodium (Porcine) 5000 unit 5,000 unit Q12 SQ 12/07/16 21:00 01/06/17 20:59 Pantoprazole Sodium/Syringe (Protonix Inj/ Syringe) 10 ml @ 5 mls/min DAILY@11 IV 12/08/16 11:00 01/07/17 10:59 Miscellaneous Information (Consult Glycemic Management Pharmacy) 1 ea UD PRN N/A 12/07/16 10:37 01/06/17 10:36 Insulin Aspart (novoLOG ASPART) SLIDING SCALE Q6 SC 12/07/16 12:00 01/06/17 11:59 12/07/16 12:14 2 UNITS Insulin Aspart (novoLOG ASPART) 1 units Q6 SC 12/07/16 18:00 01/06/17 17:59 Lidocaine HCl (Buffered Lidocaine 1% Inj) 20 ml NOW ONCE INFIL 12/07/16 16:30 12/07/16 16:31 UNV Alteplase, Recombinant 10 mg 10 mg BID IPL 12/07/16 16:30 12/09/16 21:01 UNV Dornase Ronnie 5 ml/ Syringe 30 ml @ 0 mls/hr DAILY IPL 12/07/16 16:30 12/12/16 09:01 UNV Acetaminophen/ Empty Bag (Ofirmev Iv/ Empty Iv Bag 100ml) 100 ml @ 400 mls/hr Q8H ONCE IV 12/07/16 16:45 12/07/16 16:59 UNV Objective Vital Signs Date Time Temp Pulse Resp B/P Pulse Ox O2 Delivery O2 Flow Rate FiO2 12/07/16 14:18 58 24 96 BiPAP/CPAP 50 12/07/16 14:00 73 24 116/51 92 BiPAP 50 12/07/16 12:52 95 50 12/07/16 12:00 50 12/07/16 12:00 Mechanical Ventilator 50 12/07/16 12:00 37.2 75 28 117/43 99 Mechanical Ventilator 50 12/07/16 11:46 78 12/07/16 11:40 50 12/07/16 10:00 73 13 116/46 98 Mechanical Ventilator 50 12/07/16 08:00 36.9 69 12 95/43 99 Mechanical Ventilator 50 12/07/16 08:00 Mechanical Ventilator 50 12/07/16 08:00 50 12/07/16 07:51 50 12/07/16 06:08 71 14 102/32 97 Mechanical Ventilator 50 12/07/16 05:17 50 12/07/16 05:10 50 12/07/16 04:00 36.3 68 16 134/46 97 Mechanical Ventilator 50 12/07/16 04:00 50 12/07/16 04:00 95 Mechanical Ventilator 50 12/07/16 02:24 50 12/07/16 02:14 69 19 118/41 97 Mechanical Ventilator 50 12/07/16 00:01 36.5 67 21 119/42 94 Mechanical Ventilator 50 12/07/16 00:01 50 12/07/16 00:01 95 Mechanical Ventilator 50 12/06/16 23:59 50 12/06/16 22:00 70 16 135/55 92 Mechanical Ventilator 50 12/06/16 20:00 50 12/06/16 20:00 36.2 64 16 128/43 96 Mechanical Ventilator 50 12/06/16 20:00 100 Mechanical Ventilator 50 12/06/16 19:24 50 12/06/16 18:15 50 12/06/16 18:00 66 16 99/40 94 Physical Exam General Appearance: + pertinent finding (lethargic, does not make conversation) Eyes: normal inspection ENT: hearing grossly normal Neck: supple, trachea midline Respiratory/Chest: no accessory muscle use, + crackles (throughout bilatearl lungs) Cardiovascular: regular rate, rhythm Abdomen: normal bowel sounds Neurologic/Psychiatric: + disoriented Skin: normal color, warm/dry Laboratory Results Item Value Date Time MRSA DNA Surveillance Screen - Final Complete 12/07/16 1130 Nasal Specimen Negative for MRSA by DNA Probe Urine Culture - Final Complete 11/22/16 1000 Urine,Catheterized NO GROWTH - LESS THAN 1,000 COLONIES/ML Last 24 Hours Test 12/06/16 21:32 12/07/16 04:55 12/07/16 05:17 12/07/16 05:37 Bedside Glucose 112 mg/dl 249 mg/dl White Blood Count 17.28 K/uL Red Blood Count 2.46 M/uL Hemoglobin 7.6 g/dL Hematocrit 25.0 % Mean Corpuscular Volume 101.6 fL Mean Corpuscular Hemoglobin 30.9 pg Mean Corpuscular Hemoglobin Concent 30.4 g/dl RDW Standard Deviation 50.3 fL RDW Coefficient of Variation 13.4 % Platelet Count 243 K/uL Mean Platelet Volume 9.7 fL Activated Partial Thromboplast Time 24.3 SECONDS Partial Thromboplastin Ratio 0.9 Sodium Level 144 mmol/L Potassium Level 2.9 mmol/L Chloride Level 94 mmol/L Carbon Dioxide Level 46 mmol/L Anion Gap 4.0 mmol/L Blood Urea Nitrogen 60 mg/dl Creatinine 1.30 mg/dl Est Creatinine Clear Calc Drug Dose 35.9 ml/min Estimated GFR () 45.8 Estimated GFR (Non- 39.5 BUN/Creatinine Ratio 46.0 Random Glucose 214 mg/dl Calcium Level 8.9 mg/dl Phosphorus Level 0.7 mg/dl Magnesium Level 2.7 mg/dl Blood Gas Sample Site R Radial Bedside Blood Gas pH (LAB) 7.57 Bedside Blood Gas pCO2 (LAB) 51 mmHg Bedside Blood Gas pO2 (LAB) 72 mmHg Bedside Blood Gas HCO3 (LAB) 47 meq/L Bedside Blood Gas Total CO2 > 40 mEq/l Bedside Blood Gas Base Excess (LAB) 25.0 meq/L Bedside Blood Gas O2 Saturation 96.0 % Rd Test Pass Oxygen Delivery Device Ventilator Bedside Oxygen Rate (breaths/min) 16 Bedside FiO2 50 % Blood Gas Tidal Volume 450 Blood Gas PEEP 5 Test 12/07/16 08:14 12/07/16 08:40 12/07/16 12:05 12/07/16 12:10 Sodium Level 144 mmol/L Potassium Level 2.8 mmol/L Chloride Level 93 mmol/L Carbon Dioxide Level 46 mmol/L Anion Gap 5.0 mmol/L Blood Urea Nitrogen 66 mg/dl Creatinine 1.50 mg/dl Est Creatinine Clear Calc Drug Dose 31.1 ml/min Estimated GFR () 38.5 Estimated GFR (Non- 33.3 BUN/Creatinine Ratio 43.9 Random Glucose 274 mg/dl Calcium Level 8.6 mg/dl Phosphorus Level 1.2 mg/dl Magnesium Level 2.6 mg/dl Random Cortisol 24.07 mcg/dl Blood Gas Sample Site L Radial Bedside Blood Gas pH (LAB) 7.41 Bedside Blood Gas pCO2 (LAB) 76 mmHg Bedside Blood Gas pO2 (LAB) 119 mmHg Bedside Blood Gas HCO3 (LAB) 48 meq/L Bedside Blood Gas Total CO2 < 5 mEq/l Bedside Blood Gas Base Excess (LAB) 24.0 meq/L Bedside Blood Gas O2 Saturation 98.0 % Rd Test Pass Oxygen Delivery Device Ventilator Bedside FiO2 50 % Blood Gas PEEP 5 Bedside Glucose (other) 235 mg/dl Test 12/07/16 16:09 Assessment and Plan (1) Hyperglycemia Status: Acute (2) Chronic intermittent steroid use (3) KARINA (acute kidney injury) (4) COPD exacerbation Status: Acute (5) Acute respiratory failure Patient with SOB and productive cough with Achromobacter xylosoxidans and H. Flu growing in sputum culture. Previously completed 7 days of IV Primaxin, now with worsening respiratory status, increased leukocytosis, and progressive left lower lobe infiltrate. Patient continues on IV Primaxin and Levaquin. Feel that patient likely does not need continue Levaquin, and therefore will D/C. Her status has not improved since addition. We will continue to follow- feel that this patient likely need drainage of the pleural effusion to show improvement. PROVIDER ADDENDUM: Patient reviewed with Ms. Estrada. Agree with above assessment.
[2016-12-07] MEDS: ALTEPLASE, RECOMBINANT 1 MG/ML 2 ML VIAL IPL SCH ×2 (17:00→23:30)
[2016-12-07] MEDS ORDERED: ACETAMINOPHEN IV 1,000 MG in EMPTY BAG 0 ML IV ONE (17:00)
[2016-12-07] MEDS ORDERED: DORNASE ALFA 2.5MG 5 ML in SYRINGE 25 ML IPL SCH (17:00)
[2016-12-07] MEDS ORDERED: XYLOCAINE 1%/SOD BICARB 20 ML VIAL INFIL ONE (17:00)
--- NOTE | 2016-12-07 17:53 | DIAGNOSTIC IMAGING REPORT ---
CHEST ONE VIEW PORTABLE CLINICAL HISTORY: pleural drain pleural effusion COMPARISON STUDY: 12/07/2016 7:17 AM FINDINGS: Improved aeration left lung base post placement of a left basilar drain. Moderate residual atelectatic change. No evidence pneumothorax. Interval extubation. Atelectatic change right base unchanged IMPRESSION: Improved aeration left base post drainage catheter placement. No evidence pneumothorax. Interval extubation. Electronically signed by: Silvio Nugent M.D. 12/07/2016 5:51 PM Dictated Date/Time: 12/07/2016 5:50 PM
[2016-12-07 19:33] LABS: PLEURAL FLUID GLUCOSE 173 mg/dl
[2016-12-07 19:44] LABS: PLEURAL FLUID TOTAL PROTEIN 1.7 g/dl
[2016-12-07 19:49] LABS: PLEURAL FLUID APPEARANCE TURBID; PLEURAL FLUID COLOR YELLOW; PLEURAL FLUID SOURCE LEFT LUNG; PLEURAL FLUID WBC (A) 182 /uL
--- NOTE | 2016-12-07 20:59 | Family Medicine Progress Note ---
Progress Note Date of Service Dec 07, 2016. Subjective Pt evaluation today including: conversation w/ patient, physical exam, chart review, lab review, review of studies Pain: Patient is intubated this morning Voiding: ferguson catheter in place Patient is intubated and sedated this morning. No acute events overnight. Medications Current Inpatient Medications Medications (Trade) Dose Ordered Sig/Omkar Route Start Time Stop Time Status Last Admin Dose Admin Acetaminophen (Tylenol Tab) 650 mg Q4H PRN PO 11/21/16 15:45 12/21/16 15:44 12/02/16 13:15 650 MG Atorvastatin Calcium (Lipitor Tab) 40 mg DAILY PO 11/22/16 09:00 12/22/16 08:59 12/07/16 09:03 40 MG Montelukast Sodium (Singulair Tab) 10 mg QPM PO 11/21/16 21:00 12/21/16 20:59 12/06/16 21:11 10 MG Propranolol HCl (Inderal Tab) 80 mg BID PO 11/21/16 21:00 12/21/16 20:59 Future Hold 12/06/16 07:57 80 MG Roflumilast (Daliresp Tab) 500 mcg DAILY PO 11/22/16 09:00 12/22/16 08:59 12/07/16 09:03 500 MCG Senna (Senokot Tab) 8.6 mg QAM PO 11/22/16 09:00 12/22/16 08:59 12/07/16 09:04 8.6 MG Aspirin (Aspirin Chew) 81 mg DAILY PO 11/23/16 09:00 12/23/16 08:59 12/07/16 09:02 81 MG Heparin Sodium (Porcine) (Heparin 10 Unit/ ml 5 ml Flush) 5 ml PRN PRN FLUSH 11/25/16 04:15 12/25/16 04:14 12/03/16 14:21 5 ML Ondansetron HCl (Zofran Tab) 4 mg Q4H PRN PO 11/26/16 00:30 12/26/16 00:29 11/26/16 03:06 4 MG Arformoterol Tartrate (Brovana 15MCG/ 2ML Neb Soln) 15 mcg BIDR INH 11/26/16 20:00 12/26/16 19:59 12/07/16 20:00 15 MCG Budesonide (Pulmicort Respules 0.5MG/ 2ML Neb Soln) 0.5 mg BIDR INH 11/26/16 20:00 12/26/16 19:59 12/07/16 20:00 0.5 MG Tiotropium Camino (Spiriva Handihaler Inhaler) 1 puff DAILY INH 11/27/16 09:00 12/27/16 08:59 12/06/16 07:56 1 PUFF Lisinopril (Zestril Tab) 5 mg DAILY PO 11/27/16 09:00 12/27/16 08:59 Future Hold 11/27/16 10:01 5 MG Triamterene/HCTZ (Dyazide 37.5/25 Mg Cap) 1 cap DAILY PO 11/27/16 09:00 12/27/16 08:59 Future Hold 11/27/16 10:02 1 CAP Enteral Nutritional Formula (Boost) 1 can BIDM PO 11/26/16 16:30 12/26/16 16:29 Future Hold 12/01/16 07:44 1 CAN Levalbuterol (Xopenex 1.25MG/ 0.5ML Neb) 1.25 mg Q2R PRN INH 11/28/16 09:15 12/28/16 09:14 12/04/16 11:21 1.25 MG Metoprolol Tartrate (Lopressor Iv) 5 mg Q4H PRN IV 11/28/16 19:45 12/28/16 19:44 Future Hold 11/30/16 08:11 5 MG Acetaminophen/ Hydrocodone Bitart ([place] 5/325 Tab) 1 tab Q4H PRN PO 11/30/16 12:30 12/14/16 12:29 11/30/16 21:46 1 TAB Amiodarone HCl (Cordarone Tab) 400 mg BID PO 12/01/16 21:00 12/31/16 20:59 12/07/16 09:03 400 MG Enteral Nutritional Formula 1 box 1 box BID PO 12/02/16 21:00 01/01/17 20:59 Future Hold 12/05/16 20:47 1 BOX Imipenem/ Cilastatin Sodium 500 mg/Dextrose 110 ml @ 100 mls/hr Q8H IV 12/04/16 12:00 12/11/16 11:59 12/07/16 20:09 100 MLS/HR Furosemide/ Albumin Human (Lasix Inj/ Albumin 25%) 54 ml @ 54 mls/hr DAILY IV 12/05/16 09:00 12/08/16 08:59 Future Hold 12/05/16 11:07 54 MLS/HR Magnesium Hydroxide (Milk Of Magnesia Susp) 30 ml Q6H PRN PO 12/05/16 11:00 01/04/17 10:59 12/06/16 08:01 30 ML Polyethylene 17 gm 17 gm DAILY PRN PO 12/05/16 11:00 01/04/17 10:59 12/07/16 09:14 17 GM Norepinephrine Bitartrate 8 mg/ Dextrose 508 ml @ 0 mls/hr Q0M PRN IV 12/06/16 09:30 01/05/17 09:29 12/07/16 01:55 28.1 MLS/HR Methylprednisolone Sodium Succinate/ Syringe (Solu-Medrol IV/ Syringe) 0.64 ml @ 1.5 mls/min Q8H IV 12/06/16 10:00 01/05/17 09:59 12/07/16 17:44 1.5 MLS/MIN Levalbuterol (Xopenex Hfa Inhaler) 4 puffs Q6R INH 12/06/16 15:00 01/05/17 14:59 12/07/16 14:17 4 PUFFS Ipratropium Camino (Atrovent Hfa Inhaler) 4 puffs Q6R INH 12/06/16 21:00 01/05/17 20:59 12/07/16 14:17 4 PUFFS Enteral Nutritional Formula (Peptamen 1.5) 1,000 ml UD PO 12/06/16 20:00 01/05/17 19:59 12/06/16 22:06 1,000 ML Midazolam HCl 2 mg 2 mg Q4H PRN IV 12/07/16 10:00 01/06/17 09:59 Pantoprazole Sodium/Syringe (Protonix Inj/ Syringe) 10 ml @ 5 mls/min DAILY@11 IV 12/08/16 11:00 01/07/17 10:59 Miscellaneous Information (Consult Glycemic Management Pharmacy) 1 ea UD PRN N/A 12/07/16 10:37 01/06/17 10:36 Insulin Aspart (novoLOG ASPART) SLIDING SCALE Q6 SC 12/07/16 12:00 01/06/17 11:59 12/07/16 12:14 2 UNITS Insulin Aspart (novoLOG ASPART) 1 units Q6 SC 12/07/16 18:00 01/06/17 17:59 Alteplase, Recombinant 10 mg 10 mg BID IPL 12/07/16 17:00 12/09/16 21:01 12/07/16 17:00 10 MG Dornase Ronnie/ Syringe (Pulmozyme Inhalation Soln 2.5ml Amp/Syringe) 30 ml @ 0 mls/hr DAILY IPL 12/07/16 17:00 12/12/16 09:01 12/07/16 17:00 1 MLS/HR Heparin Sodium (Porcine) (Heparin Sq 5000 Unit/0.5ml) 5,000 unit Q8 SQ 12/07/16 22:00 01/06/17 21:59 Levalbuterol (Xopenex Hfa Inhaler) 2 puffs QID INH 12/07/16 21:00 01/06/17 20:59 Objective Vital Signs Date Time Temp Pulse Resp B/P Pulse Ox O2 Delivery O2 Flow Rate FiO2 12/07/16 20:00 76 26 93 Nasal Cannula 5.0 12/07/16 18:00 75 24 90/33 97 Nasal Cannula 4.0 12/07/16 16:00 37.5 78 26 116/57 98 BiPAP 50 12/07/16 16:00 BiPAP 50 12/07/16 14:18 58 24 96 BiPAP/CPAP 50 12/07/16 14:00 73 24 116/51 92 BiPAP 50 12/07/16 12:52 95 50 12/07/16 12:00 50 12/07/16 12:00 Mechanical Ventilator 50 12/07/16 12:00 37.2 75 28 117/43 99 Mechanical Ventilator 50 12/07/16 11:46 78 12/07/16 11:40 50 12/07/16 10:00 73 13 116/46 98 Mechanical Ventilator 50 12/07/16 08:00 36.9 69 12 95/43 99 Mechanical Ventilator 50 12/07/16 08:00 Mechanical Ventilator 50 12/07/16 08:00 50 12/07/16 07:51 50 12/07/16 06:08 71 14 102/32 97 Mechanical Ventilator 50 12/07/16 05:17 50 12/07/16 05:10 50 12/07/16 04:00 36.3 68 16 134/46 97 Mechanical Ventilator 50 12/07/16 04:00 50 12/07/16 04:00 95 Mechanical Ventilator 50 12/07/16 02:24 50 12/07/16 02:14 69 19 118/41 97 Mechanical Ventilator 50 12/07/16 00:01 36.5 67 21 119/42 94 Mechanical Ventilator 50 12/07/16 00:01 50 12/07/16 00:01 95 Mechanical Ventilator 50 12/06/16 23:59 50 12/06/16 22:00 70 16 135/55 92 Mechanical Ventilator 50 Physical Exam General Appearance: WD/WN, + pertinent finding (Intubated and sedated) Neck: supple Respiratory/Chest: + pertinent finding (bilateral crackles on exam) Cardiovascular: no gallop, no murmur, + irregularly irregular Abdomen: normal bowel sounds, non tender, soft Extremities: + pedal edema Neurologic/Psychiatric: + pertinent finding (sedated) Laboratory Results Results Past 24 Hours Test 12/06/16 21:32 12/07/16 04:55 12/07/16 05:17 12/07/16 05:37 Range/Units Bedside Glucose 112 249 70-90 mg/dl White Blood Count 17.28 4.8-10.8 K/uL Red Blood Count 2.46 4.2-5.4 M/uL Hemoglobin 7.6 12.0-16.0 g/dL Hematocrit 25.0 37-47 % Mean Corpuscular Volume 101.6 80-100 fL Mean Corpuscular Hemoglobin 30.9 25-34 pg Mean Corpuscular Hemoglobin Concent 30.4 32-36 g/dl RDW Standard Deviation 50.3 36.4-46.3 fL RDW Coefficient of Variation 13.4 11.5-14.5 % Platelet Count 243 130-400 K/uL Mean Platelet Volume 9.7 7.4-10.4 fL Activated Partial Thromboplast Time 24.3 21.0-31.0 SECONDS Partial Thromboplastin Ratio 0.9 Sodium Level 144 136-145 mmol/L Potassium Level 2.9 3.5-5.1 mmol/L Chloride Level 94 98-107 mmol/L Carbon Dioxide Level 46 21-32 mmol/L Anion Gap 4.0 3-11 mmol/L Blood Urea Nitrogen 60 7-18 mg/dl Creatinine 1.30 0.60-1.20 mg/dl Est Creatinine Clear Calc Drug Dose 35.9 ml/min Estimated GFR () 45.8 Estimated GFR (Non- 39.5 BUN/Creatinine Ratio 46.0 10-20 Random Glucose 214 70-99 mg/dl Calcium Level 8.9 8.5-10.1 mg/dl Phosphorus Level 0.7 2.5-4.9 mg/dl Magnesium Level 2.7 1.8-2.4 mg/dl Blood Gas Sample Site R Radial Bedside Blood Gas pH (LAB) 7.57 7.35-7.45 Bedside Blood Gas pCO2 (LAB) 51 35-46 mmHg Bedside Blood Gas pO2 (LAB) 72 80-95 mmHg Bedside Blood Gas HCO3 (LAB) 47 19-24 meq/L Bedside Blood Gas Total CO2 > 40 24-31 mEq/l Bedside Blood Gas Base Excess (LAB) 25.0 -9-1.8 meq/L Bedside Blood Gas O2 Saturation 96.0 90-95 % Rd Test Pass Oxygen Delivery Device Ventilator Bedside Oxygen Rate (breaths/min) 16 Bedside FiO2 50 % Blood Gas Tidal Volume 450 Blood Gas PEEP 5 Test 12/07/16 08:14 12/07/16 08:40 12/07/16 12:05 12/07/16 12:10 Range/Units Sodium Level 144 136-145 mmol/L Potassium Level 2.8 3.5-5.1 mmol/L Chloride Level 93 98-107 mmol/L Carbon Dioxide Level 46 21-32 mmol/L Anion Gap 5.0 3-11 mmol/L Blood Urea Nitrogen 66 7-18 mg/dl Creatinine 1.50 0.60-1.20 mg/dl Est Creatinine Clear Calc Drug Dose 31.1 ml/min Estimated GFR () 38.5 Estimated GFR (Non- 33.3 BUN/Creatinine Ratio 43.9 10-20 Random Glucose 274 70-99 mg/dl Calcium Level 8.6 8.5-10.1 mg/dl Phosphorus Level 1.2 2.5-4.9 mg/dl Magnesium Level 2.6 1.8-2.4 mg/dl Random Cortisol 24.07 mcg/dl Blood Gas Sample Site L Radial Bedside Blood Gas pH (LAB) 7.41 7.35-7.45 Bedside Blood Gas pCO2 (LAB) 76 35-46 mmHg Bedside Blood Gas pO2 (LAB) 119 80-95 mmHg Bedside Blood Gas HCO3 (LAB) 48 19-24 meq/L Bedside Blood Gas Total CO2 < 5 24-31 mEq/l Bedside Blood Gas Base Excess (LAB) 24.0 -9-1.8 meq/L Bedside Blood Gas O2 Saturation 98.0 90-95 % Rd Test Pass Oxygen Delivery Device Ventilator Bedside FiO2 50 % Blood Gas PEEP 5 Bedside Glucose (other) 235 70-99 mg/dl Test 12/07/16 16:09 12/07/16 17:20 12/07/16 17:36 12/07/16 17:48 Range/Units Sodium Level 145 136-145 mmol/L Potassium Level 3.9 3.5-5.1 mmol/L Chloride Level 95 98-107 mmol/L Carbon Dioxide Level 53 21-32 mmol/L Anion Gap -3.0 3-11 mmol/L Blood Urea Nitrogen 64 7-18 mg/dl Creatinine 1.40 0.60-1.20 mg/dl Est Creatinine Clear Calc Drug Dose 33.3 ml/min Estimated GFR () 41.9 Estimated GFR (Non- 36.2 BUN/Creatinine Ratio 45.4 10-20 Random Glucose 159 70-99 mg/dl Calcium Level 8.4 8.5-10.1 mg/dl Phosphorus Level 4.2 2.5-4.9 mg/dl Magnesium Level 2.7 1.8-2.4 mg/dl Procalcitonin 0.60 0-0.5 ng/mL Pleural Fluid Source LEFT LUNG Pleural Fluid Color YELLOW Pleural Fluid Appearance TURBID Pleural Fluid WBC 182 /uL Pleural Fluid RBC < 3000 /uL Pleural Fluid pH 7.74 7.3-7.4 Pleural Fluid Total Protein 1.7 g/dl Pleural Fluid Albumin 0.9 g/dl Pleural Fluid LDH 197 IU Pleural Fluid Glucose 173 mg/dl Pleural Fluid Amylase 37 U/L Bedside Glucose 176 70-90 mg/dl Microbiology Results 12/07/16 MRSA DNA Surveillance Screen - Final, Complete Specimen Negative for MRSA by DNA Probe Assessment and Plan Patient is a 76 year old female with a 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 The patient was successfully extubated during the admission but once again had an acute decline in oxygen saturation and was intubated once again and admitted into the ICU. Overnight the patient was intubated and sedated. Her lab work showed hypokalemia, hypophosphatemia, and hypomagnesemia that was promptly corrected. She also went into Atrial Fibrillation this afternoon and was loaded with Diltiazem. This was later discontinued and the patient will be placed on Digoxin tomorrow. The patient was also successfully extubated in the afternoon and also had chest tube placement on the left side to drain a complicated parapneumonic effusion. The patient and her family also met with Palliative care and decided to be made DNR/ DNI with comfort care measures and did not want trach placement. 1) Acute Hypoxic Respiratory Failure 2/2 End Stage COPD - Extubated this afternoon - Left sided chest tube placement for complicated parapneumonic effusion - Pulmonology on board - ICU status - IV Methylprednisolone q8h - Duoneb q4h - Xopenex 2 puff QID - Atrovent 4 puff q6h - Spiriva 1 puff daily - Brovana 15 mcg INH BID - Pulmicort 0.5m - Amiodarone 400mg BID - Received several doses of Digoxin during hospitalization - IV Heparin 5,000 units q8h - No anticoagulation at this time given NSR 2) Bibasilar Consolidation - CXR: Improved aeration of left lower lobe after chest tube placement without evidence of pneumothorax - Imipenem/ Cilastatin q8h IV - ID following - Sputum culture positive for H. Influenza and Achromobacter Xylosoxidans - Monitor in ICU 3) Paroxysmal Atrial Fibrillation - Amiodarone 400mg BID - Several doses of DIgoxin - Heparin 5,000 units q8h - No anticoagulation given bleeding 4) GI Prophylaxis - Pantoprazole 5) Speech Therapy - Speech and swallow eval on 11/25 - Recommend mechanical soft diet with strict aspiration precautions 6) Constipation - Milk of Magnesia - Miralax - Senna 7) Leukocytosis - Most likely 2/2 steroids - Antibiotic therapy continued - ID on board 8) GI bleeding - Stool occult positive - Hgb trending down - Protonix 40mg BID for GI prophylaxis 9) Code Status - DNR Reviewed: Pt Seen/Exam by Me History Resident Physician Supervision Note: I was present with Dr. Wilson during the history and exam. I discussed the case with the resident and agree with the findings and plan as documented in the note. Any exceptions or clarifications are listed here: Patient recently extubated, had chest tube placed just prior to my examination and is complaining of pain at that site. Was intubated again yesterday and transferred back to the intensive care unit for acute on chronic respiratory failure. She had multiple electrolyte abnormalities on labs this morning which were repleted, and she had a parapneumonic effusion on chest x-ray which was just drained by the stoper. Vital signs reviewed, currently in normal sinus rhythm but has been in and out of A. fib today. Mild distress, alert and awake Regular rate and rhythm, no murmurs gallops or rubs Diffuse rhonchi and crackles at the bases Abdomen soft positive bowel sounds nontender nondistended Extremities 1+ pitting edema left greater than right to the knees bilaterally Skin multiple ecchymoses on the extremities This patient is a 76-year-old female with acute on chronic hypercarbic and hypoxemic respiratory failure requiring intubation twice this admission, severe COPD, now with parapneumonic effusion with suspected loculation now status post chest tube placement. Also with paroxysmal atrial fibrillation and worsening anemia. -Appreciate stoper management and chest tube placement-continue Primaxin and follow chest x-rays, CBC to follow leukocytosis back to normal -A. fib is now converted to normal sinus rhythm, cardiology is following, no anticoagulation due to heme positive stool and current anemia, on digoxin and amiodarone for rate and rhythm control respectively -Continue nasal cannula and/or BiPAP as needed -Hemoccult stool is positive, hemoglobin down to 7.6 today, remains on subcutaneous heparin for DVT prophylaxis-follow CBC in the morning and transfuse as needed to keep hemoglobin greater than 7 Documented By: Kristal Blevins
[2016-12-07] MEDS ORDERED: HEPARIN SOD 5000 UNIT/0.5 ML CARP SQ SCH (21:00)
--- NOTE | 2016-12-07 21:10 | Procedure Note ---
Procedure Note Date of Service Dec 07, 2016. Procedure Note Critical Care Medicine Point of Care Bedside Ultrasound Procedure: Limited Bedside Lung Ultrasound Procedure Date: 12/07/2016 Indication: Persistent left pleural effusion, concern for parapneumonic effusion Attending: Sergio Krause DO Resident/Physician Acetone Button Paster: Katja Procedure: Lung Ultrasound Indication: Left pleural effusion Organs Examined: Lung BLUE point (upper), BLUE point (lower), Phrenic Point (axillary), PLAPS point ( posterior) A lines visualized: None, Hemithorax: Left B lines visualized: None, Hemithorax: Left Lung Sliding: Presents, Hemithorax: Left Tissue-like Sign: Present, Hemithorax: Left Shred Sign: Presents, Hemithorax: Left Sinusoid Sign: Present, Hemithorax: left Type of effusions: Complicated with loculations, Hemithorax: Left Interpleural distance: 1.7 cm Impression: Left parapneumonic effusion with evidence of loculation Plan: Small bore chest tube drainage with Pulmozyme and TPA. Images were saved to [employer]
--- NOTE | 2016-12-07 21:15 | Procedure Note ---
Procedure Note Date of Service Dec 07, 2016. Procedure Note Critical Care Medicine Procedure Date: 12/07/2016 Procedure: Thoracentesis with chest tube placement and ultrasound guidance Pre-procedure Diagnosis: Left complicated per a pneumonic effusion Post-procedure Diagnosis: same as above Prior to Procedure: Informed Consent: The risks, benefits, indications, potential complications, and alternatives were explained to the patient & family and informed consent obtained. Attending Staff: Pamela Krause Resident/Physician Materials Planner: Katja Indications: Belinda Rueda is a 76-year-old female patient with persistent left effusion which was discovered to be a complicated parapneumonic effusion by ultrasound The identity of the patient was confirmed and a bedside time out was performed. Description of Procedure: Patient positioned, prepped and draped in usual sterile fashion. Fluid collection identified at bedside by ultrasound on the left posterior side. 1% Lidocaine without epinephrine was used to anesthetize the area. An 16 Hungarian Thal-quik chest tube kit was used to enter the plural space and the catheter introduced over the needle. Pleural fluid was then aspirated. The 16 Hungarian chest tube was secured at 12 cm to the skin. Post procedure chest x-ray pending. Complications: None Findings: 200 ML's of yellow pleural fluid was initially obtained, there was evidence of fibrinous material in the fluid. 25 ML's of Pulmozyme and 25 ML's of TPA was instilled under sterile technique into the pleural space, allowed to sit for 1 hour and then placed to suction Total Fluid Removed: 200 mL Color of Fluid: Yellow Sent for: Gram Stain, culture, cell count, glucose, protein, LDH, pleural pH, amylase Estimated blood loss: None Patient tolerated the procedure well Ultrasound images were saved to electronic media.
[2016-12-07] MEDS: HEPARIN SOD 5000 UNIT/0.5 ML CARP SQ SCH (21:39)
[2016-12-07] MEDS: MONTELUKAST SOD 10 MG TAB PO SCH (21:46)
[2016-12-08] VITALS (16 sets, daily range): BP systolic 102–124; BP diastolic 37–54; PULSE 64–88; TEMP 36.8–37.4; O2SAT 90–100
[2016-12-08] MEDS: METHYLPREDNISOLONE IV 40 MG in SYRINGE 0 ML IV SCH ×2 (02:17→12:53)
[2016-12-08] MEDS: ACETAMINOPHEN 325 MG TAB PO PRN ×2 (02:45→12:57)
[2016-12-08] MEDS: IPRATROPIUM BROMIDE HFA INHALER INH SCH ×3 (03:00→17:31)
[2016-12-08] MEDS: IMIPENEM/CILASTATIN IV 500 MG in DEXTROSE 5% 100ML 100 ML IV SCH ×3 (04:32→20:34)
[2016-12-08 05:30] LABS: HEMATOCRIT 24.5 % (37-47); IG% 0.3 %; LYMPH % 4.4 %; LYMPH ABS # 0.57 K/uL (1.2-3.4); MEAN CELL VOLUME 100.8 fL (80-100); MEAN CORPUSCULAR HEMOGLOBIN 30.5 pg (25-34); MEAN CORPUSCULAR HGB CONC 30.2 g/dl (32-36); MEAN PLATELET VOLUME 9.4 fL (7.4-10.4); MONO % 3.7 %; NEUT % 91.6 %; PLATELET COUNT 186 K/uL (130-400); RED BLOOD COUNT 2.43 M/uL (4.2-5.4); WHITE BLOOD COUNT 12.87 K/uL (4.8-10.8)
[2016-12-08 05:36] LABS: PARTIAL THROMBOPLASTIN RATIO 0.9
[2016-12-08 05:52] LABS: ALT/SGPT 15 U/L (12-78); AST/SGOT 19 U/L (15-37); BLOOD UREA NITROGEN 66 mg/dl (7-18); BUN/CREATININE RATIO 50.7 (10-20); CALCIUM 8.7 mg/dl (8.5-10.1); CHLORIDE 95 mmol/L (98-107); GLUCOSE 153 mg/dl (70-99); MAGNESIUM 2.8 mg/dl (1.8-2.4); POTASSIUM 3.8 mmol/L (3.5-5.1); SODIUM 144 mmol/L (136-145)
[2016-12-08 05:59] LABS: ALKALINE PHOSPHATASE 52 U/L (45-117); PHOSPHORUS 4.1 mg/dl (2.5-4.9)
[2016-12-08] MEDS: INSULIN ASPART 100 UNITS/ML 3 ML PEN SC SCH ×6 (06:00→20:55)
[2016-12-08 06:04] LABS: COMPLETE YES
[2016-12-08] MEDS: HEPARIN SOD 5000 UNIT/0.5 ML CARP SQ SCH ×2 (06:13→12:56)
[2016-12-08 06:48] LABS: PLEURAL FLUID MONONUC RELAT 43.5 %; PLEURAL FLUID POLYNUC 56.5 %
[2016-12-08 06:56] LABS: CARBON DIOXIDE 46 mmol/L (21-32)
[2016-12-08] MEDS: BUDESONIDE 0.5 MG/2 ML VIAL (PULMICORT) INH SCH (07:30)
[2016-12-08] MEDS: ARFORMOTEROL TART 15MCG/2ML VIAL INH SCH (07:30)
--- NOTE | 2016-12-08 07:32 | PULMONARY PROGRESS NOTE ---
DATE: 12/08/2016 The patient is extubated on BiPAP and is comfortable. She is awake and alert and oriented. She remains weak. She has a weak cough. She had a small chest tube placed yesterday and it looks like it is draining serous colored fluid. She feels comfortable. Respiratory rate is 20-24. Blood pressure 116/42. She is on BiPAP, oxygen saturation 100% on 50% FIO2, she is afebrile. I\T\O is 2707 in and 940 out. Weight 73.7 kilograms, which is relatively stable since the 6th. Left chest tube drained 60 mL since midnight, 240 mL total. According to nurses' notes and speaking with the nursing personnel she had a fairly good night last night, although she remains very weak. She is on BiPAP. PHYSICAL EXAMINATION: HEENT: Posterior pharynx is unremarkable, no thrush noted. No subcutaneous emphysema is noted. No nodes noted. HEART: Regular rate and rhythm. LUNGS: With decreased breath sounds bilaterally. No crackles or rales or wheezing noted. ABDOMEN: Soft, nontender. EXTREMITIES: She has a trace peripheral edema. She is able to raise her right arm and left arm up off the bed against gravity. She has good shoulder shrug. She is unable to lift her legs because of weakness. LABORATORY DATA: White count 12.87 which is improved. Hemoglobin is down to 7.4 with a platelet count of 186,000. CO2 was 46 on the electrolytes today with 53 yesterday at 4:00 p.m. BUN 66, creatinine 1.3. Procalcitonin is 0.43. IMPRESSION: 1. Respiratory failure. 2. Left pleural effusion. pH looked good at 7.74, pleural protein was only 1.7, LDH 197 suggestive of probable transudative effusion. RECOMMENDATIONS: At this point from a pulmonary standpoint she is quite stable. I would continue with BiPAP for the hypercapnia as tolerated, certainly at night and each time she sleeps. I would cut back on any of the pain medications and I think the methylprednisolone could be decreased to 40 mg q. 12 hours. We will need to follow the BUN and creatinine carefully. The procalcitonin was slightly elevated suggesting that she could have a pulmonary infection and sepsis is unlikely. Continuing on the imipenem may be appropriate as well. Overall, she looks better today.
[2016-12-08] MEDS: LEValbuterol HFA 15GM INHALER INH SCH ×3 (07:49→17:32)
[2016-12-08] MEDS: AMIODARONE 200 MG TAB PO SCH ×2 (07:50→20:42)
[2016-12-08] MEDS: ROFLUMILAST 500 MCG TAB PO SCH (07:51)
[2016-12-08] MEDS: ATORVASTATIN 40 MG TAB PO SCH (07:51)
[2016-12-08] MEDS: ASPIRIN 81 MG CHEW PO SCH (07:55)
[2016-12-08] MEDS: MAGNESIUM HYDROXIDE SUSP 30 ML UDC PO PRN (07:58)
--- NOTE | 2016-12-08 09:23 | Critical Care Progress Note ---
Critical Care Progress Note Date of Service Dec 08, 2016. ICU Day ICU Day Number: [address] Krause Subjective Events of yesterday in summary - Patient was extubated around noon, and tolerated BiPAP well. - A bedside ultrasound was completed of her chest, which demonstrated a loculated infection / empyema in the left lower lobe. - Palliative Care was consulted to discuss goals of care. She was changed to a DNR, but the family agreed for chest tube placement. - Chest tube was placed in the left side of chest. DNAse and tPA were instilled to help break up loculations. Overnight, she did well. She was wearing BiPAP though took it off occasionally. When I saw her this morning, she was sleeping comfortably. She was easily arousable and denied any pain. On further review, she was significantly more awake, alert, and conversant. Objective GENERAL: Awake, eyes open, good tracking. HENT: Normocephalic, atraumatic. EYES: Normal conjunctiva. Sclera non-icteric. NECK: Supple. No nuchal rigidity. FROM. No JVD. RESPIRATORY: Crackles to left base, but improved from yesterday's exam. Chest drain in situ. CARDIAC: Regular rate, normal rhythm. Extremities warm and well perfused. Pulses equal. ABDOMEN: Soft, non-distended. No tenderness to palpation. No rebound or guarding. LOWER EXTREMITIES: Calves are equal size bilaterally and non-tender. No edema. No discoloration. NEURO: GCS 15. SKIN: No rash or jaundice noted. Current SOFA Score SOFA Score Response (Comments) Value PaO2/FiO2 (mmHg) < 400 1 Platelets (x10) < 150 1 Kun Coma Score 13 - 14 1 Level of Hypotension No Hypotension 0 Total 3 Previous SOFA Scores 10 (12/07/16) Assessment & Plan Ms Rueda is a 76 year old female with end-stage COPD, with left lobar pneumonia , s/p second intubation during this admission for acute on chronic respiratory failure. Problems: 1. Parapneumonic effusion from underlying Haemophilus Influ. (betalactamase +) and Achromobacter Xylosoxidans pneumonia 2. End stage COPD 3. Emphysema 4. A-fib 5. Diastolic HF, preserved EF 6. Hypophosphatemia, hypokalemia, Hypomagnesemia 7. 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 Serum protein 5.3. Pleural LDH is > 2/3 Serum upper limit of normal LDH (222), though does not meet other two Light's criteria. CXR today (12/08): 1. Unchanging chest appearance. 2. Small left effusion with basilar consolidation similar compared to the prior study. 3. Slight variation in position of a left basilar drainage catheter - Is back on home inhalers (Xopenex, Breo Ellipta) - Will change steroids to slow taper, starting with 40mg IV BID for three days, then Prednisone 40mg PO x 2 days, then 30mg x 2 days, then 20mg x 2 days, then 10mg x 2 days, then stop. - Is still receiving TPA and DNAse via pleural catheter to break up loculations. This will be continued BID for 3 more days, and will be inserted by Dr Krause. Cardiovascular: CV drips: None currently. Digoxin level 0.8. EKG: Today, with QTc 426 - Will continue daily digoxin 0.125mg and check a level in 2 days Fluids/Renal: IV Fluids: Was receiving Normosol. Electrolytes: WNL after replacements Net fluid balance: +1767mL cumulative Ferguson: Present since admission (11/21). - We will keep the ferguson for one more day due to recent KARINA and need for strict I&O management. - We will provide 40mg Lasix PO now. - We will give another 40meQ of KCL today, and a further dose in the afternoon GI/Nutrition: Feeding: Tube feeds on hold. Diet: Slippery. Restarted Boost supplements. Daily nutritional requirement is 1375kcl/day. Goal is 50mL continuous feeds. Prophylaxis: On PPI, will change to PO Bowel movements: Last on 12/07. Stool softeners: Miralax - Will add Senna and Colace Endocrine: Last 24 hour glucose: Ranging 112 to 186 Insulin protocol: Yes Is on IV steroids currently, as above - We will decrease the IV steroids over a slow 2 week taper as above Hematology: Hemoglobin 7.4 hematocrit 24.5 DVT prophylaxis: Heparin 5000 3 times a day Infectious Disease/Immunology: Tmax: 37.2 Antimicrobials: Imipenem: Completed 5 day course 11/25 to 11/30. Restarted on 12/04, currently on day 5. Levaquin: Completed 4 days, stopped currently. Will discuss duration of tx for parapneumonic effusion with ID. Cultures: Blood: No growth x 2 Urine: Less than 1000 CFU x 2 Nasal: MRSA swab negative x 2 Sputum 11/21: Positive for H. influenze (beta lactamase +) and Achromobacter xylosoxidahs, both organisms sensitive to Imipenem. - Procalcitonin 0.43, yesterday was 0.60, and was undetectable on admission. CODE STATUS: DO NOT RESUSCITATE. Patient is stable to be transferred to Telemetry at this time. Please do not hesitate to contact us with any questions or concerns. Resident Physician Supervision Note: Dr. Hightower was resident physician during care of patient. I separately evaluated patient and did history and exam. I discussed the case with the resident and generally agree with the findings and plan. Continued dornase and TPA for parapneumonic effusion, Lasix 40 mg 1 today, start digoxin 125 g daily recheck digoxin level with morning labs on December 10. BiPAP at night, diet as tolerated per nutrition recommendations and started stool softener. I reviewed the pleural fluid analysis, unfortunately we were inadvertently unable to obtain a culture and Gram stain. However, pleural effusions can be falsely negative, therefore we will continue antibiotics through the course of the tube thoracostomy, and discontinue based on patient response. I personally instilled dornase in TPA into the left thoracostomy tube , it remained for one hour and then was drained. Stable for downgraded to telemetry status discussed with Dr. Blevins. Documented By: Elie Krause DO ATQASUK II Score Date Score Was Generated: Dec 07, 2016 ATQASUK II Total: 24 Consults & Procedures Consultants: Pulmonary ID Cardiology Procedures: Intubated 11/21/16, Extubated and again Intubated 12/06/16 Data Medications: Current Inpatient Medications Medications (Trade) Dose Ordered Sig/Omkar Route Start Time Stop Time Status Last Admin Dose Admin Acetaminophen (Tylenol Tab) 650 mg Q4H PRN PO 11/21/16 15:45 12/21/16 15:44 12/08/16 02:45 650 MG Atorvastatin Calcium (Lipitor Tab) 40 mg DAILY PO 11/22/16 09:00 12/22/16 08:59 12/08/16 07:51 40 MG Montelukast Sodium (Singulair Tab) 10 mg QPM PO 11/21/16 21:00 12/21/16 20:59 12/07/16 21:46 10 MG Propranolol HCl (Inderal Tab) 80 mg BID PO 11/21/16 21:00 12/21/16 20:59 Future Hold 12/06/16 07:57 80 MG Roflumilast (Daliresp Tab) 500 mcg DAILY PO 11/22/16 09:00 12/22/16 08:59 12/08/16 07:51 500 MCG Senna (Senokot Tab) 8.6 mg QAM PO 11/22/16 09:00 12/22/16 08:59 12/07/16 09:04 8.6 MG Aspirin (Aspirin Chew) 81 mg DAILY PO 11/23/16 09:00 12/23/16 08:59 12/08/16 07:55 81 MG Heparin Sodium (Porcine) (Heparin 10 Unit/ ml 5 ml Flush) 5 ml PRN PRN FLUSH 11/25/16 04:15 12/25/16 04:14 12/08/16 08:07 10 ML Ondansetron HCl (Zofran Tab) 4 mg Q4H PRN PO 11/26/16 00:30 12/26/16 00:29 11/26/16 03:06 4 MG Arformoterol Tartrate (Brovana 15MCG/ 2ML Neb Soln) 15 mcg BIDR INH 11/26/16 20:00 12/26/16 19:59 12/08/16 07:30 15 MCG Budesonide (Pulmicort Respules 0.5MG/ 2ML Neb Soln) 0.5 mg BIDR INH 11/26/16 20:00 12/26/16 19:59 12/08/16 07:30 0.5 MG Tiotropium [place] (Spiriva Handihaler Inhaler) 1 puff DAILY INH 11/27/16 09:00 12/27/16 08:59 12/06/16 07:56 1 PUFF Lisinopril (Zestril Tab) 5 mg DAILY PO 11/27/16 09:00 12/27/16 08:59 Future Hold 11/27/16 10:01 5 MG Triamterene/HCTZ (Dyazide 37.5/25 Mg Cap) 1 cap DAILY PO 11/27/16 09:00 12/27/16 08:59 Future Hold 11/27/16 10:02 1 CAP Enteral Nutritional Formula (Boost) 1 can BIDM PO 11/26/16 16:30 12/26/16 16:29 Future Hold 12/01/16 07:44 1 CAN Levalbuterol (Xopenex 1.25MG/ 0.5ML Neb) 1.25 mg Q2R PRN INH 11/28/16 09:15 12/28/16 09:14 12/04/16 11:21 1.25 MG Metoprolol Tartrate (Lopressor Iv) 5 mg Q4H PRN IV 11/28/16 19:45 12/28/16 19:44 Future Hold 11/30/16 08:11 5 MG Acetaminophen/ Hydrocodone Bitart ([place] 5/325 Tab) 1 tab Q4H PRN PO 11/30/16 12:30 12/14/16 12:29 11/30/16 21:46 1 TAB Amiodarone HCl (Cordarone Tab) 400 mg BID PO 12/01/16 21:00 12/31/16 20:59 12/08/16 07:50 400 MG Enteral Nutritional Formula 1 box 1 box BID PO 12/02/16 21:00 01/01/17 20:59 Future Hold 12/05/16 20:47 1 BOX Imipenem/ Cilastatin Sodium/ Dextrose (Primaxin Iv/D5 100ml) 110 ml @ 100 mls/hr Q8H IV 12/04/16 12:00 12/11/16 11:59 12/08/16 04:32 100 MLS/HR Magnesium Hydroxide (Milk Of Magnesia Susp) 30 ml Q6H PRN PO 12/05/16 11:00 01/04/17 10:59 12/08/16 07:58 30 ML Polyethylene 17 gm 17 gm DAILY PRN PO 12/05/16 11:00 01/04/17 10:59 12/07/16 09:14 17 GM Norepinephrine Bitartrate 8 mg/ Dextrose 508 ml @ 0 mls/hr Q0M PRN IV 12/06/16 09:30 01/05/17 09:29 12/07/16 01:55 28.1 MLS/HR Methylprednisolone Sodium Succinate/ Syringe (Solu-Medrol IV/ Syringe) 0.64 ml @ 1.5 mls/min Q8H IV 12/06/16 10:00 01/05/17 09:59 12/08/16 02:17 1.5 MLS/MIN Ipratropium [place] (Atrovent Hfa Inhaler) 4 puffs Q6R INH 12/06/16 21:00 01/05/17 20:59 12/07/16 14:17 4 PUFFS Midazolam HCl 2 mg 2 mg Q4H PRN IV 12/07/16 10:00 01/06/17 09:59 Pantoprazole Sodium/Syringe (Protonix Inj/ Syringe) 10 ml @ 5 mls/min DAILY@11 IV 12/08/16 11:00 01/07/17 10:59 Miscellaneous Information (Consult Glycemic Management Pharmacy) 1 ea UD PRN N/A 12/07/16 10:37 01/06/17 10:36 Insulin Aspart (novoLOG ASPART) SLIDING SCALE Q6 SC 12/07/16 12:00 01/06/17 11:59 12/08/16 00:00 1 UNITS Insulin Aspart (novoLOG ASPART) 1 units Q6 SC 12/07/16 18:00 01/06/17 17:59 Alteplase, Recombinant (Activase Cathflo) 10 mg BID IPL 12/07/16 17:00 12/09/16 21:01 12/07/16 17:00 10 MG Heparin Sodium (Porcine) (Heparin Sq 5000 Unit/0.5ml) 5,000 unit Q8 SQ 12/07/16 22:00 01/06/17 21:59 12/08/16 06:13 5,000 UNIT Levalbuterol 2 puffs 2 puffs QID INH 12/07/16 21:00 01/06/17 20:59 12/08/16 07:49 2 PUFFS Dornase Ronnie/ Syringe (Pulmozyme Inhalation Soln 2.5ml Amp/Syringe) 30 ml @ 0 mls/hr BID IPL 12/08/16 09:00 12/10/16 09:01 I & O: 24-Hour Column 12/08/16 08:00 Intake Total 1725 ml Output Total 1125 ml Balance 600 ml Vital Signs: Date Time Temp Pulse Resp B/P Pulse Ox O2 Delivery O2 Flow Rate FiO2 12/08/16 08:00 36.9 75 23 117/46 99 Nasal Cannula 4.0 12/08/16 08:00 Nasal Cannula 4.0 12/08/16 07:30 64 92 50 12/08/16 07:30 64 22 92 BiPAP/CPAP 12/08/16 06:34 77 24 116/42 100 BiPAP 50 12/08/16 04:00 37.2 74 24 117/47 99 BiPAP 50 12/08/16 04:00 BiPAP 50 12/08/16 02:47 77 95 50 12/08/16 02:00 37.4 74 25 105/40 98 BiPAP 50 12/08/16 00:00 37.4 76 25 109/42 98 BiPAP 50 12/08/16 00:00 96 BiPAP 50 12/07/16 22:25 76 95 50 12/07/16 22:00 75 27 114/42 93 Nasal Cannula 5.0 12/07/16 20:00 76 26 93 Nasal Cannula 5.0 12/07/16 20:00 37.3 75 26 112/43 92 Nasal Cannula 5.0 12/07/16 20:00 92 Nasal Cannula 12/07/16 18:00 75 24 90/33 97 Nasal Cannula 4.0 12/07/16 16:00 37.5 78 26 116/57 98 BiPAP 50 12/07/16 16:00 BiPAP 50 12/07/16 14:18 58 24 96 BiPAP/CPAP 50 12/07/16 14:00 73 24 116/51 92 BiPAP 50 12/07/16 12:52 95 50 12/07/16 12:00 50 12/07/16 12:00 Mechanical Ventilator 50 12/07/16 12:00 37.2 75 28 117/43 99 Mechanical Ventilator 50 12/07/16 11:46 78 12/07/16 11:40 50 12/07/16 10:00 73 13 116/46 98 Mechanical Ventilator 50 Laboratory Results: Last 24 Hours Test 12/07/16 12:05 12/07/16 12:10 12/07/16 16:09 12/07/16 17:20 Blood Gas Sample Site L Radial Bedside Blood Gas pH (LAB) 7.41 Bedside Blood Gas pCO2 (LAB) 76 mmHg Bedside Blood Gas pO2 (LAB) 119 mmHg Bedside Blood Gas HCO3 (LAB) 48 meq/L Bedside Blood Gas Total CO2 < 5 mEq/l Bedside Blood Gas Base Excess (LAB) 24.0 meq/L Bedside Blood Gas O2 Saturation 98.0 % Rd Test Pass Oxygen Delivery Device Ventilator Bedside FiO2 50 % Blood Gas PEEP 5 Bedside Glucose (other) 235 mg/dl Sodium Level 145 mmol/L Potassium Level 3.9 mmol/L Chloride Level 95 mmol/L Carbon Dioxide Level 53 mmol/L Anion Gap -3.0 mmol/L Blood Urea Nitrogen 64 mg/dl Creatinine 1.40 mg/dl Est Creatinine Clear Calc Drug Dose 33.3 ml/min Estimated GFR () 41.9 Estimated GFR (Non- 36.2 BUN/Creatinine Ratio 45.4 Random Glucose 159 mg/dl Calcium Level 8.4 mg/dl Phosphorus Level 4.2 mg/dl Magnesium Level 2.7 mg/dl Procalcitonin 0.60 ng/mL Pleural Fluid Source LEFT LUNG Pleural Fluid Color YELLOW Pleural Fluid Appearance TURBID Pleural Fluid WBC 182 /uL Pleural Fluid RBC < 3000 /uL Pleural Fluid pH 7.74 Pleural Fluid Specific [place] Pleural Fluid Polynuclear WBCs % 56.5 % Pleural Fluid Mononuclear WBCs % 43.5 % Pleural Fluid Total Protein 1.7 g/dl Pleural Fluid Albumin 0.9 g/dl Pleural Fluid LDH 197 IU Pleural Fluid Glucose 173 mg/dl Pleural Fluid Amylase 37 U/L Test 12/07/16 17:48 12/07/16 23:54 12/08/16 05:07 Bedside Glucose 176 mg/dl 189 mg/dl White Blood Count 12.87 K/uL Red Blood Count 2.43 M/uL Hemoglobin 7.4 g/dL Hematocrit 24.5 % Mean Corpuscular Volume 100.8 fL Mean Corpuscular Hemoglobin 30.5 pg Mean Corpuscular Hemoglobin Concent 30.2 g/dl Platelet Count 186 K/uL Mean Platelet Volume 9.4 fL Neutrophils (%) (Auto) 91.6 % Lymphocytes (%) (Auto) 4.4 % Monocytes (%) (Auto) 3.7 % Eosinophils (%) (Auto) 0.0 % Basophils (%) (Auto) 0.0 % Neutrophils # (Auto) 11.79 K/uL Lymphocytes # (Auto) 0.57 K/uL Monocytes # (Auto) 0.47 K/uL Eosinophils # (Auto) 0.00 K/uL Basophils # (Auto) 0.00 K/uL RDW Standard Deviation 50.8 fL RDW Coefficient of Variation 13.6 % Immature Granulocyte % (Auto) 0.3 % Immature Granulocyte # (Auto) 0.04 K/uL Red Blood Cell Morphology Unremarkable Activated Partial Thromboplast Time 23.8 SECONDS Partial Thromboplastin Ratio 0.9 Sodium Level 144 mmol/L Potassium Level 3.8 mmol/L Chloride Level 95 mmol/L Carbon Dioxide Level 46 mmol/L Anion Gap mmol/L Blood Urea Nitrogen 66 mg/dl Creatinine 1.30 mg/dl Est Creatinine Clear Calc Drug Dose 35.9 ml/min Estimated GFR () 45.8 Estimated GFR (Non- 39.5 BUN/Creatinine Ratio 50.7 Random Glucose 153 mg/dl Calcium Level 8.7 mg/dl Phosphorus Level 4.1 mg/dl Magnesium Level 2.8 mg/dl Total Bilirubin 0.5 mg/dl Direct Bilirubin 0.2 mg/dl Aspartate Amino Transf (AST/SGOT) 19 U/L Alanine Aminotransferase (ALT/SGPT) 15 U/L Alkaline Phosphatase 52 U/L Total Protein 5.3 gm/dl Albumin 1.9 gm/dl Procalcitonin 0.43 ng/mL Digoxin Level 0.8 ng/ml Resident Tracking Resident Involvement: Resident Care Provided Care Provided: Adult Hospital Medicine
[2016-12-08] MEDS ORDERED: DOCUSATE SODIUM 100 MG CAP PO PRN (10:00)
--- NOTE | 2016-12-08 10:07 | DIAGNOSTIC IMAGING REPORT ---
CHEST ONE VIEW PORTABLE CLINICAL HISTORY: chest tube / effusion tube position COMPARISON STUDY: 12/07/2016 FINDINGS: Subtle change in position of a left basilar drainage catheter small residual left effusion and bilateral basilar consolidative change. Unchanging atelectatic change right base. Central catheter in superior vena cava. Upper lungs are considered clear. No evidence pneumothorax. IMPRESSION: 1. Unchanging chest appearance. 2. Small left effusion with basilar consolidation similar compared to the prior study. 3. Slight variation in position of a left basilar drainage catheter Electronically signed by: Silvio Nugent M.D. 12/08/2016 10:04 AM Dictated Date/Time: 12/08/2016 10:03 AM
[2016-12-08] MEDS ORDERED: FUROSEMIDE 40 MG TAB PO ONE (10:15)
[2016-12-08] MEDS ORDERED: DOCUSATE SODIUM 100 MG CAP PO ONE (10:15)
[2016-12-08] MEDS ORDERED: DOCUSATE SODIUM 100 MG/10 ML UDC PO ONE (10:15)
[2016-12-08] MEDS ORDERED: POTASSIUM CHLORIDE 20 MEQ TABCR PO ONE ×2 (10:15→16:00)
[2016-12-08] MEDS: TIOTROPIUM BROMIDE 5 PUFF/90 MCG INH INH SCH (10:23)
[2016-12-08] MEDS: DORNASE ALFA 2.5MG 5 ML in SYRINGE 25 ML IPL SCH ×2 (10:24→20:36)
[2016-12-08] MEDS: ALTEPLASE, RECOMBINANT 1 MG/ML 2 ML VIAL IPL SCH ×2 (10:24→20:34)
[2016-12-08] MEDS: SENNA 8.6 MG TAB PO SCH (10:35)
[2016-12-08] MEDS: HYDROCODONE/ACETAMOPHEN 5/325MG TAB PO PRN (10:35)
[2016-12-08] MEDS ORDERED: PANTOprazole INJ 40 MG in SYRINGE 0 ML IV SCH (11:00)
--- NOTE | 2016-12-08 12:42 | Pharmacy Progress Note ---
Glycemic Control: Progress Nt Date of Service Dec 08, 2016. Scope Glycemic Pharmacist consulted by Dr Hightower on 12/07/16 for glycemic control and to write orders per [facility] inpatient glycemic control protocol. Objective Accuchecks BSG (last 24hrs): Test 12/07/16 16:09 12/07/16 17:48 12/07/16 23:54 12/08/16 05:07 Random Glucose 159 mg/dl (70-99) 153 mg/dl (70-99) Bedside Glucose 176 mg/dl (70-90) 189 mg/dl (70-90) Laboratory Data (last 24hrs) Test 12/07/16 16:09 12/08/16 05:07 Anion Gap -3.0 mmol/L mmol/L BUN/Creatinine Ratio 45.4 50.7 Blood Urea Nitrogen 64 mg/dl 66 mg/dl Creatinine 1.40 mg/dl 1.30 mg/dl Potassium Level 3.9 mmol/L 3.8 mmol/L Sodium Level 145 mmol/L 144 mmol/L White Blood Count 12.87 K/uL Red Blood Count 2.43 M/uL Hemoglobin 7.4 g/dL Hematocrit 24.5 % Mean Corpuscular Volume 100.8 fL Mean Corpuscular Hemoglobin 30.5 pg Mean Corpuscular Hemoglobin Concent 30.2 g/dl Platelet Count 186 K/uL Mean Platelet Volume 9.4 fL Neutrophils (%) (Auto) 91.6 % Lymphocytes (%) (Auto) 4.4 % Monocytes (%) (Auto) 3.7 % Eosinophils (%) (Auto) 0.0 % Basophils (%) (Auto) 0.0 % Neutrophils # (Auto) 11.79 K/uL Lymphocytes # (Auto) 0.57 K/uL Monocytes # (Auto) 0.47 K/uL Eosinophils # (Auto) 0.00 K/uL Basophils # (Auto) 0.00 K/uL HbA1c: Test 12/02/16 05:30 Hemoglobin A1c 6.0 %(4.5-5.6) H Recent Pertinent Medications Outpatient Anti-diabetic Regimen: * no prior dx of DM, no out-pt meds for DM * A1c = 5.8 % 05/01/16 --> 6% 12/02/16 The patient is currently receiving: * Basal insulin: No Lantus given in last 24 hours * Correctional Insulin: NovoLog Correction per scale q 6 hours while NPO Goal Range: Low 140 mg/dL - High 180 mg/dL Correction Factor: 30 mg/dL/unit * Prandial insulin: 1 unit every 6 hours to cover Peptamen @ 10mL/hr Risk Factors for Insulin Resistance: * Steroids: Solu-Medrol 40mg IV Q 8 hours --> q12H today * Infection: acute on chronic resp failure secondary to PNX / COPD exac; H influ + Achromobacter in sputum; abx changed to Primaxin * Diet: Boost, Boost Breeze, Clear liquid diet * Mechanical Ventilation: extubated 12/07 Assessment & Plan ASSESSMENT: 12/07/16 * Patient remains on mechanical ventilation at this time * Tube feeds will continue; steroid may begin taper today/soon * Glycemic control deteriorated with the addition of continuous tube feeds. Although this patient does not have a prior h/o DM, the IV Solu-Medrol is making her much more insulin resistant and carb sensitive. * Will add a set nutritional coverage to help cover tube feeds while the patient is on high dose steroids * May consider a single dose of Lantus to help obtain glycemic control 12/08/16 * Patient extubated, tube feeds off * BSG control improved with these changes * Random BSG today 153mg/dL * at goal for ICU patient * continue to forgo basal insulin * Steroids to be tapered over the next 1-2 weeks * likely, we will see BSGs further improve PLAN FOR INPATIENT GLYCEMIC CONTROL: * Basal insulin * No basal insulin at this time - reassess need daily * Bolus insulin * Change BSGs to ACHS since diet ordered * Correction factor to 30 mg/dl/unit * Add Carb ratio for 1 unit per 15g of CHO consumed * Goal: 140-180mg/dL for elderly, acutely ill patient * Reassess insulin needs with each step down in steroid dose * Please note that the plan above was derived based on current level of insulin resistance and hospital stress. These recommendations are appropriate for inpatient admission only. Plan of care upon discharge will need to be reassessed to avoid potential outpatient hypo/hyperglycemia. Thank you.
--- NOTE | 2016-12-08 12:59 | Infectious Disease Progress Nt ---
Progress Note Date of Service Dec 08, 2016. Subjective Pt evaluation today including: conversation w/ patient, physical exam, chart review, lab review, review of studies, review of inpatient medication list Patient appears to be slightly more attentive today. She states that she continues to overall feel poorly. She does answer some questions. She does make eye contact today. Her white blood cell count is decreased to 12.87 this morning. Note that drainage was completed of her left complicated parapneumonic effusion. The procedure no was reviewed. It was noted that the fluid collected was yellow in color and had 182 white blood cells and less than 3000 red blood cells. All Other Systems: Reviewed and Negative Medications Current Inpatient Medications Medications (Trade) Dose Ordered Sig/Omkar Route Start Time Stop Time Status Last Admin Dose Admin Acetaminophen (Tylenol Tab) 650 mg Q4H PRN PO 11/21/16 15:45 12/21/16 15:44 12/08/16 02:45 650 MG Atorvastatin Calcium (Lipitor Tab) 40 mg DAILY PO 11/22/16 09:00 12/22/16 08:59 12/08/16 07:51 40 MG Montelukast Sodium (Singulair Tab) 10 mg QPM PO 11/21/16 21:00 12/21/16 20:59 12/07/16 21:46 10 MG Propranolol HCl (Inderal Tab) 80 mg BID PO 11/21/16 21:00 12/21/16 20:59 Future Hold 12/06/16 07:57 80 MG Roflumilast (Daliresp Tab) 500 mcg DAILY PO 11/22/16 09:00 12/22/16 08:59 12/08/16 07:51 500 MCG Senna (Senokot Tab) 8.6 mg QAM PO 11/22/16 09:00 12/22/16 08:59 12/08/16 10:35 8.6 MG Aspirin (Aspirin Chew) 81 mg DAILY PO 11/23/16 09:00 12/23/16 08:59 12/08/16 07:55 81 MG Heparin Sodium (Porcine) (Heparin 10 Unit/ ml 5 ml Flush) 5 ml PRN PRN FLUSH 11/25/16 04:15 12/25/16 04:14 12/08/16 08:07 10 ML Ondansetron HCl (Zofran Tab) 4 mg Q4H PRN PO 11/26/16 00:30 12/26/16 00:29 11/26/16 03:06 4 MG Arformoterol Tartrate (Brovana 15MCG/ 2ML Neb Soln) 15 mcg BIDR INH 11/26/16 20:00 12/26/16 19:59 12/08/16 07:30 15 MCG Budesonide (Pulmicort Respules 0.5MG/ 2ML Neb Soln) 0.5 mg BIDR INH 11/26/16 20:00 12/26/16 19:59 12/08/16 07:30 0.5 MG Tiotropium [place] (Spiriva Handihaler Inhaler) 1 puff DAILY INH 11/27/16 09:00 12/27/16 08:59 12/08/16 10:23 1 PUFF Lisinopril (Zestril Tab) 5 mg DAILY PO 11/27/16 09:00 12/27/16 08:59 Future Hold 11/27/16 10:01 5 MG Triamterene/HCTZ (Dyazide 37.5/25 Mg Cap) 1 cap DAILY PO 11/27/16 09:00 12/27/16 08:59 Future Hold 11/27/16 10:02 1 CAP Enteral Nutritional Formula (Boost) 1 can BIDM PO 11/26/16 16:30 12/26/16 16:29 Future hold 12/01/16 07:44 1 CAN Levalbuterol (Xopenex 1.25MG/ 0.5ML Neb) 1.25 mg Q2R PRN INH 11/28/16 09:15 12/28/16 09:14 12/04/16 11:21 1.25 MG Metoprolol Tartrate (Lopressor Iv) 5 mg Q4H PRN IV 11/28/16 19:45 12/28/16 19:44 Future Hold 11/30/16 08:11 5 MG Acetaminophen/ Hydrocodone Bitart ([place] 5/325 Tab) 1 tab Q4H PRN PO 11/30/16 12:30 12/14/16 12:29 12/08/16 10:35 1 TAB Amiodarone HCl (Cordarone Tab) 400 mg BID PO 12/01/16 21:00 12/31/16 20:59 12/08/16 07:50 400 MG Enteral Nutritional Formula 1 box 1 box BID PO 12/02/16 21:00 01/01/17 20:59 Future hold 12/05/16 20:47 1 BOX Imipenem/ Cilastatin Sodium/ Dextrose (Primaxin Iv/D5 100ml) 110 ml @ 100 mls/hr Q8H IV 12/04/16 12:00 12/11/16 11:59 12/08/16 04:32 100 MLS/HR Magnesium Hydroxide (Milk Of Magnesia Susp) 30 ml Q6H PRN PO 12/05/16 11:00 01/04/17 10:59 12/08/16 07:58 30 ML Polyethylene (Miralax Powder Packet) 17 gm DAILY PRN PO 12/05/16 11:00 01/04/17 10:59 12/07/16 09:14 17 GM Ipratropium [place] (Atrovent Hfa Inhaler) 4 puffs Q6R INH 12/06/16 21:00 01/05/17 20:59 12/07/16 14:17 4 PUFFS Midazolam HCl (Versed Inj) 2 mg Q4H PRN IV 12/07/16 10:00 01/06/17 09:59 Miscellaneous Information (Consult Glycemic Management Pharmacy) 1 ea UD PRN N/A 12/07/16 10:37 01/06/17 10:36 Alteplase, Recombinant (Activase Cathflo) 10 mg BID IPL 12/07/16 17:00 12/09/16 21:01 12/08/16 10:24 10 MG Heparin Sodium (Porcine) (Heparin Sq 5000 Unit/0.5ml) 5,000 unit Q8 SQ 12/07/16 22:00 01/06/17 21:59 12/08/16 06:13 5,000 UNIT Levalbuterol 2 puffs 2 puffs QID INH 12/07/16 21:00 01/06/17 20:59 12/08/16 07:49 2 PUFFS Dornase Ronnie 5 ml/ Syringe 30 ml @ 0 mls/hr BID IPL 12/08/16 09:00 12/10/16 09:01 12/08/16 10:24 1 MLS/HR Methylprednisolone Sodium Succinate/ Syringe (Solu-Medrol IV/ Syringe) 0.64 ml @ 1.5 mls/min Q12H IV 12/08/16 14:00 12/11/16 13:59 Digoxin (Lanoxin Tab) 0.125 mg DAILY@16 PO 12/08/16 16:00 01/07/17 15:59 Docusate Sodium (coLACE SYRUP) 100 mg BID PO 12/08/16 21:00 01/07/17 20:59 Polyethylene (Miralax Powder Packet) 17 gm DAILY PO 12/09/16 09:00 01/08/17 08:59 Docusate Sodium (coLACE CAP) 100 mg BID PRN PO 12/08/16 10:00 01/07/17 09:59 Pantoprazole Sodium (Protonix Tab) 40 mg QAM PO 12/09/16 09:00 01/08/17 08:59 Potassium Chloride (Klor-Con Tab) 40 meq 1600 ONCE PO 12/08/16 16:00 12/08/16 16:01 Insulin Aspart (novoLOG ASPART) SLIDING SCALE ACHS SC 12/08/16 11:30 01/07/17 11:29 Prednisone (PredniSONE TAB) 40 mg Taper DAILY PO 12/11/16 09:00 12/19/16 08:59 Objective Vital Signs Date Time Temp Pulse Resp B/P Pulse Ox O2 Delivery O2 Flow Rate FiO2 12/08/16 10:00 75 33 115/45 96 Nasal Cannula 4.0 12/08/16 08:00 36.9 75 23 117/46 99 Nasal Cannula 4.0 12/08/16 08:00 Nasal Cannula 4.0 12/08/16 07:30 64 92 50 12/08/16 07:30 64 22 92 BiPAP/CPAP 12/08/16 06:34 77 24 116/42 100 BiPAP 50 12/08/16 04:00 37.2 74 24 117/47 99 BiPAP 50 12/08/16 04:00 BiPAP 50 12/08/16 02:47 77 95 50 12/08/16 02:00 37.4 74 25 105/40 98 BiPAP 50 12/08/16 00:00 37.4 76 25 109/42 98 BiPAP 50 12/08/16 00:00 96 BiPAP 50 12/07/16 22:25 76 95 50 12/07/16 22:00 75 27 114/42 93 Nasal Cannula 5.0 12/07/16 20:00 76 26 93 Nasal Cannula 5.0 12/07/16 20:00 37.3 75 26 112/43 92 Nasal Cannula 5.0 12/07/16 20:00 92 Nasal Cannula 12/07/16 18:00 75 24 90/33 97 Nasal Cannula 4.0 12/07/16 16:00 37.5 78 26 116/57 98 BiPAP 50 12/07/16 16:00 BiPAP 50 12/07/16 14:18 58 24 96 BiPAP/CPAP 50 12/07/16 14:00 73 24 116/51 92 BiPAP 50 Physical Exam General Appearance: no apparent distress Eyes: normal inspection ENT: hearing grossly normal Neck: supple, trachea midline Respiratory/Chest: no respiratory distress, no accessory muscle use Cardiovascular: regular rate, rhythm Neurologic/Psychiatric: alert Skin: normal color, warm/dry Laboratory Results CHEST ONE VIEW PORTABLE CLINICAL HISTORY: pleural drain pleural effusion COMPARISON STUDY: 12/07/2016 7:17 AM FINDINGS: Improved aeration left lung base post placement of a left basilar drain. Moderate residual atelectatic change. No evidence pneumothorax. Interval extubation. Atelectatic change right base unchanged IMPRESSION: Improved aeration left base post drainage catheter placement. No evidence pneumothorax. Interval extubation. Last 24 Hours Test 12/07/16 16:09 12/07/16 17:20 12/07/16 17:48 12/07/16 23:54 Sodium Level 145 mmol/L Potassium Level 3.9 mmol/L Chloride Level 95 mmol/L Carbon Dioxide Level 53 mmol/L Anion Gap -3.0 mmol/L Blood Urea Nitrogen 64 mg/dl Creatinine 1.40 mg/dl Est Creatinine Clear Calc Drug Dose 33.3 ml/min Estimated GFR () 41.9 Estimated GFR (Non- 36.2 BUN/Creatinine Ratio 45.4 Random Glucose 159 mg/dl Calcium Level 8.4 mg/dl Phosphorus Level 4.2 mg/dl Magnesium Level 2.7 mg/dl Procalcitonin 0.60 ng/mL Pleural Fluid Source LEFT LUNG Pleural Fluid Color YELLOW Pleural Fluid Appearance TURBID Pleural Fluid WBC 182 /uL Pleural Fluid RBC < 3000 /uL Pleural Fluid pH 7.74 Pleural Fluid Specific [place] Pleural Fluid Polynuclear WBCs % 56.5 % Pleural Fluid Mononuclear WBCs % 43.5 % Pleural Fluid Total Protein 1.7 g/dl Pleural Fluid Albumin 0.9 g/dl Pleural Fluid LDH 197 IU Pleural Fluid Glucose 173 mg/dl Pleural Fluid Amylase 37 U/L Bedside Glucose 176 mg/dl 189 mg/dl Test 12/08/16 05:07 12/08/16 12:47 White Blood Count 12.87 K/uL Red Blood Count 2.43 M/uL Hemoglobin 7.4 g/dL Hematocrit 24.5 % Mean Corpuscular Volume 100.8 fL Mean Corpuscular Hemoglobin 30.5 pg Mean Corpuscular Hemoglobin Concent 30.2 g/dl Platelet Count 186 K/uL Mean Platelet Volume 9.4 fL Neutrophils (%) (Auto) 91.6 % Lymphocytes (%) (Auto) 4.4 % Monocytes (%) (Auto) 3.7 % Eosinophils (%) (Auto) 0.0 % Basophils (%) (Auto) 0.0 % Neutrophils # (Auto) 11.79 K/uL Lymphocytes # (Auto) 0.57 K/uL Monocytes # (Auto) 0.47 K/uL Eosinophils # (Auto) 0.00 K/uL Basophils # (Auto) 0.00 K/uL RDW Standard Deviation 50.8 fL RDW Coefficient of Variation 13.6 % Immature Granulocyte % (Auto) 0.3 % Immature Granulocyte # (Auto) 0.04 K/uL Red Blood Cell Morphology Unremarkable Activated Partial Thromboplast Time 23.8 SECONDS Partial Thromboplastin Ratio 0.9 Sodium Level 144 mmol/L Potassium Level 3.8 mmol/L Chloride Level 95 mmol/L Carbon Dioxide Level 46 mmol/L Anion Gap mmol/L Blood Urea Nitrogen 66 mg/dl Creatinine 1.30 mg/dl Est Creatinine Clear Calc Drug Dose 35.9 ml/min Estimated GFR () 45.8 Estimated GFR (Non- 39.5 BUN/Creatinine Ratio 50.7 Random Glucose 153 mg/dl Calcium Level 8.7 mg/dl Phosphorus Level 4.1 mg/dl Magnesium Level 2.8 mg/dl Total Bilirubin 0.5 mg/dl Direct Bilirubin 0.2 mg/dl Aspartate Amino Transf (AST/SGOT) 19 U/L Alanine Aminotransferase (ALT/SGPT) 15 U/L Alkaline Phosphatase 52 U/L Total Protein 5.3 gm/dl Albumin 1.9 gm/dl Procalcitonin 0.43 ng/mL Digoxin Level 0.8 ng/ml Bedside Glucose 152 mg/dl Assessment and Plan (1) Hyperglycemia Status: Acute (2) Chronic intermittent steroid use (3) KARINA (acute kidney injury) (4) COPD exacerbation Status: Acute (5) Acute respiratory failure Patient with SOB and productive cough with Achromobacter xylosoxidans and H. Flu growing in sputum culture. Patient currently on IV Primaxin. She seems to have slight improvement since drainage of parapneumonic effusion. CXR showed improved aeration. Will continue IV abx therapy and follow for continued improvement. PROVIDER ADDENDUM: Patient reviewed with Ms. Estrada. Agree with above assessment.
[2016-12-08] MEDS ORDERED: POTASSIUM CHLORIDE 20 MEQ/15 ML UDC PO ONE (16:00)
[2016-12-08] MEDS: DIGOXIN 0.125 MG TAB PO SCH (16:26)
[2016-12-08] MEDS ORDERED: HYDROCODONE/ACETAMOPHEN 5/325MG TAB PO PRN (16:30)
[2016-12-08] MEDS: BOOST VANILLA PO SCH ×2 (16:42)
--- NOTE | 2016-12-08 18:36 | Family Medicine Progress Note ---
Progress Note Date of Service Dec 08, 2016. Subjective Pt evaluation today including: conversation w/ patient, physical exam, chart review, lab review, review of studies Pain: Patient complains of left sided pain with movement 2/2 chest tube Voiding: ferguson catheter in place Patient resting in bed this morning in mild distress from left sided back pain at the location of her chest tube. She was reposition and this appeared to help with the acute pain. She has tolerated BiPAP overnight and appears to be improving after the chest tube drainage. Respiratory: + cough, + shortness of breath, No wheezing Cardiovascular: No chest pain Abdomen: + constipation, No diarrhea, No nausea, No pain, No vomiting Female : No dysuria Medications Current Inpatient Medications Medications (Trade) Dose Ordered Sig/Omkar Route Start Time Stop Time Status Last Admin Dose Admin Acetaminophen (Tylenol Tab) 650 mg Q4H PRN PO 11/21/16 15:45 12/21/16 15:44 12/08/16 12:57 650 MG Atorvastatin Calcium (Lipitor Tab) 40 mg DAILY PO 11/22/16 09:00 12/22/16 08:59 12/08/16 07:51 40 MG Montelukast Sodium (Singulair Tab) 10 mg QPM PO 11/21/16 21:00 12/21/16 20:59 12/07/16 21:46 10 MG Propranolol HCl (Inderal Tab) 80 mg BID PO 11/21/16 21:00 12/21/16 20:59 Future Hold 12/06/16 07:57 80 MG Roflumilast (Daliresp Tab) 500 mcg DAILY PO 11/22/16 09:00 12/22/16 08:59 12/08/16 07:51 500 MCG Senna (Senokot Tab) 8.6 mg QAM PO 11/22/16 09:00 12/22/16 08:59 12/08/16 10:35 8.6 MG Aspirin (Aspirin Chew) 81 mg DAILY PO 11/23/16 09:00 12/23/16 08:59 12/08/16 07:55 81 MG Heparin Sodium (Porcine) (Heparin 10 Unit/ ml 5 ml Flush) 5 ml PRN PRN FLUSH 11/25/16 04:15 12/25/16 04:14 12/08/16 08:07 10 ML Ondansetron HCl (Zofran Tab) 4 mg Q4H PRN PO 11/26/16 00:30 12/26/16 00:29 11/26/16 03:06 4 MG Arformoterol Tartrate (Brovana 15MCG/ 2ML Neb Soln) 15 mcg BIDR INH 11/26/16 20:00 12/26/16 19:59 12/08/16 07:30 15 MCG Budesonide (Pulmicort Respules 0.5MG/ 2ML Neb Soln) 0.5 mg BIDR INH 11/26/16 20:00 12/26/16 19:59 12/08/16 07:30 0.5 MG Tiotropium [place] (Spiriva Handihaler Inhaler) 1 puff DAILY INH 11/27/16 09:00 12/27/16 08:59 12/08/16 10:23 1 PUFF Lisinopril (Zestril Tab) 5 mg DAILY PO 11/27/16 09:00 12/27/16 08:59 Future Hold 11/27/16 10:01 5 MG Triamterene/HCTZ (Dyazide 37.5/25 Mg Cap) 1 cap DAILY PO 11/27/16 09:00 12/27/16 08:59 Future Hold 11/27/16 10:02 1 CAP Enteral Nutritional Formula (Boost) 1 can BIDM PO 11/26/16 16:30 12/26/16 16:29 Future hold 12/08/16 16:42 1 CAN Levalbuterol (Xopenex 1.25MG/ 0.5ML Neb) 1.25 mg Q2R PRN INH 11/28/16 09:15 12/28/16 09:14 12/04/16 11:21 1.25 MG Metoprolol Tartrate (Lopressor Iv) 5 mg Q4H PRN IV 11/28/16 19:45 12/28/16 19:44 Future Hold 11/30/16 08:11 5 MG Amiodarone HCl (Cordarone Tab) 400 mg BID PO 12/01/16 21:00 12/31/16 20:59 12/08/16 07:50 400 MG Enteral Nutritional Formula 1 box 1 box BID PO 12/02/16 21:00 01/01/17 20:59 Future hold 12/05/16 20:47 1 BOX Imipenem/ Cilastatin Sodium/ Dextrose (Primaxin Iv/D5 100ml) 110 ml @ 100 mls/hr Q8H IV 12/04/16 12:00 12/11/16 11:59 12/08/16 12:53 100 MLS/HR Magnesium Hydroxide (Milk Of Magnesia Susp) 30 ml Q6H PRN PO 12/05/16 11:00 01/04/17 10:59 12/08/16 07:58 30 ML Polyethylene (Miralax Powder Packet) 17 gm DAILY PRN PO 12/05/16 11:00 01/04/17 10:59 12/07/16 09:14 17 GM Ipratropium [place] (Atrovent Hfa Inhaler) 4 puffs Q6R INH 12/06/16 21:00 01/05/17 20:59 12/08/16 17:31 4 PUFFS Midazolam HCl (Versed Inj) 2 mg Q4H PRN IV 12/07/16 10:00 01/06/17 09:59 Miscellaneous Information (Consult Glycemic Management Pharmacy) 1 ea UD PRN N/A 12/07/16 10:37 01/06/17 10:36 Alteplase, Recombinant (Activase Cathflo) 10 mg BID IPL 12/07/16 17:00 12/09/16 21:01 12/08/16 10:24 10 MG Heparin Sodium (Porcine) (Heparin Sq 5000 Unit/0.5ml) 5,000 unit Q8 SQ 12/07/16 22:00 01/06/17 21:59 12/08/16 12:56 5,000 UNIT Levalbuterol 2 puffs 2 puffs QID INH 12/07/16 21:00 01/06/17 20:59 12/08/16 17:32 2 PUFFS Dornase Ronnie 5 ml/ Syringe 30 ml @ 0 mls/hr BID IPL 12/08/16 09:00 12/10/16 09:01 12/08/16 10:24 1 MLS/HR Methylprednisolone Sodium Succinate/ Syringe (Solu-Medrol IV/ Syringe) 0.64 ml @ 1.5 mls/min Q12H IV 12/08/16 14:00 12/11/16 13:59 12/08/16 12:53 1.5 MLS/MIN Digoxin (Lanoxin Tab) 0.125 mg DAILY@16 PO 12/08/16 16:00 01/07/17 15:59 12/08/16 16:26 0.125 MG Docusate Sodium (coLACE SYRUP) 100 mg BID PO 12/08/16 21:00 01/07/17 20:59 Polyethylene (Miralax Powder Packet) 17 gm DAILY PO 12/09/16 09:00 01/08/17 08:59 Docusate Sodium (coLACE CAP) 100 mg BID PRN PO 12/08/16 10:00 01/07/17 09:59 Pantoprazole Sodium (Protonix Tab) 40 mg QAM PO 12/09/16 09:00 01/08/17 08:59 Insulin Aspart (novoLOG ASPART) SLIDING SCALE ACHS SC 12/08/16 11:30 01/07/17 11:29 12/08/16 16:56 2 UNITS Prednisone (PredniSONE TAB) 40 mg Taper DAILY PO 12/11/16 09:00 12/19/16 08:59 Acetaminophen/ Hydrocodone Bitart ([place] 5/325 Tab) 1-2 tab for pain 1 tab ... Q4H PRN PO 12/08/16 16:30 12/22/16 16:29 Objective Vital Signs Date Time Temp Pulse Resp B/P Pulse Ox O2 Delivery O2 Flow Rate FiO2 12/08/16 16:26 80 12/08/16 16:00 Nasal Cannula 4.0 12/08/16 16:00 36.9 77 24 102/41 92 Nasal Cannula 4.0 12/08/16 14:00 76 21 109/42 90 Nasal Cannula 4.0 12/08/16 12:00 36.8 76 31 104/37 95 Nasal Cannula 4.0 12/08/16 12:00 Nasal Cannula 4.0 12/08/16 10:00 75 33 115/45 96 Nasal Cannula 4.0 12/08/16 08:00 36.9 75 23 117/46 99 Nasal Cannula 4.0 12/08/16 08:00 Nasal Cannula 4.0 12/08/16 07:30 64 92 50 12/08/16 07:30 64 22 92 BiPAP/CPAP 12/08/16 06:34 77 24 116/42 100 BiPAP 50 12/08/16 04:00 37.2 74 24 117/47 99 BiPAP 50 12/08/16 04:00 BiPAP 50 12/08/16 02:47 77 95 50 12/08/16 02:00 37.4 74 25 105/40 98 BiPAP 50 12/08/16 00:00 37.4 76 25 109/42 98 BiPAP 50 12/08/16 00:00 96 BiPAP 50 12/07/16 22:25 76 95 50 12/07/16 22:00 75 27 114/42 93 Nasal Cannula 5.0 12/07/16 20:00 76 26 93 Nasal Cannula 5.0 12/07/16 20:00 37.3 75 26 112/43 92 Nasal Cannula 5.0 12/07/16 20:00 92 Nasal Cannula 12/07/16 18:00 75 24 90/33 97 Nasal Cannula 4.0 Physical Exam General Appearance: WD/WN, + moderate distress Eyes: normal inspection, sclerae normal Neck: supple, no carotid bruits, trachea midline Respiratory/Chest: chest non-tender, no accessory muscle use, + rhonchi Cardiovascular: regular rate, rhythm, no gallop, no murmur Abdomen: normal bowel sounds, non tender, soft Extremities: no calf tenderness, + swelling (+1 pitting edema to knees bilaterally) Neurologic/Psychiatric: alert Skin: normal color, warm/dry Laboratory Results Results Past 24 Hours Test 12/07/16 23:54 12/08/16 05:07 12/08/16 12:30 12/08/16 12:47 Range/Units Bedside Glucose 189 152 70-90 mg/dl White Blood Count 12.87 4.8-10.8 K/uL Red Blood Count 2.43 4.2-5.4 M/uL Hemoglobin 7.4 12.0-16.0 g/dL Hematocrit 24.5 37-47 % Mean Corpuscular Volume 100.8 80-100 fL Mean Corpuscular Hemoglobin 30.5 25-34 pg Mean Corpuscular Hemoglobin Concent 30.2 32-36 g/dl Platelet Count 186 130-400 K/uL Mean Platelet Volume 9.4 7.4-10.4 fL Neutrophils (%) (Auto) 91.6 % Lymphocytes (%) (Auto) 4.4 % Monocytes (%) (Auto) 3.7 % Eosinophils (%) (Auto) 0.0 % Basophils (%) (Auto) 0.0 % Neutrophils # (Auto) 11.79 1.4-6.5 K/uL Lymphocytes # (Auto) 0.57 1.2-3.4 K/uL Monocytes # (Auto) 0.47 0.11-0.59 K/uL Eosinophils # (Auto) 0.00 0-0.5 K/uL Basophils # (Auto) 0.00 0-0.2 K/uL RDW Standard Deviation 50.8 36.4-46.3 fL RDW Coefficient of Variation 13.6 11.5-14.5 % Immature Granulocyte % (Auto) 0.3 % Immature Granulocyte # (Auto) 0.04 0.00-0.02 K/uL Red Blood Cell Morphology Unremarkable Activated Partial Thromboplast Time 23.8 21.0-31.0 SECONDS Partial Thromboplastin Ratio 0.9 Sodium Level 144 136-145 mmol/L Potassium Level 3.8 3.5-5.1 mmol/L Chloride Level 95 98-107 mmol/L Carbon Dioxide Level 46 21-32 mmol/L Anion Gap 3-11 mmol/L Blood Urea Nitrogen 66 7-18 mg/dl Creatinine 1.30 0.60-1.20 mg/dl Est Creatinine Clear Calc Drug Dose 35.9 ml/min Estimated GFR () 45.8 Estimated GFR (Non- 39.5 BUN/Creatinine Ratio 50.7 10-20 Random Glucose 153 70-99 mg/dl Calcium Level 8.7 8.5-10.1 mg/dl Phosphorus Level 4.1 2.5-4.9 mg/dl Magnesium Level 2.8 1.8-2.4 mg/dl Total Bilirubin 0.5 0.2-1 mg/dl Direct Bilirubin 0.2 0-0.2 mg/dl Aspartate Amino Transf (AST/SGOT) 19 15-37 U/L Alanine Aminotransferase (ALT/SGPT) 15 12-78 U/L Alkaline Phosphatase 52 45-117 U/L Total Protein 5.3 6.4-8.2 gm/dl Albumin 1.9 3.4-5.0 gm/dl Procalcitonin 0.43 0-0.5 ng/mL Digoxin Level 0.8 0.8-2.0 ng/ml Stool Occult Blood POSITIVE NEGATIVE Test 12/08/16 16:32 Range/Units Bedside Glucose 154 70-90 mg/dl Assessment and Plan Patient is a 76 year old female with a 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 1) Acute on Chronic Hypercarbic Hypoxic Respiratory Failure 2/2 End Stage COPD - Extubated and now tolerating BiPAP - Left sided chest tube - Drained 240ml yesterday - Pleural Fluids - pH 7.74, LDH 197, Total Protein 1.7, Total Protein 1.7, Albumin 0.9 - Transudative picture - Steroid taper: Methylprednisone 40mg IV BID x 3 days, Prednisone 40mg PO x 2 days, 30mg x 2 days, 20mg x 2 days, 10mg x 2 days - Leukocytosis most likely 2/2 steroid - Downgraded to Telemetry - will remain in ICU to receive TPA and DNAse - 2 more days of treatment - Duoneb q4h, Xopenex 2 puff QID, Atrovent 4 puff q6h, Spiriva 1 puff daily, Brovana 15 mcg INH BID, Pulmicort 0.5m - CXR: Improved aeration of left lower lobe after chest tube placement without evidence of pneumothorax - Imipenem/ Cilastatin q8h IV - ID following - Sputum culture positive for H. Influenza and Achromobacter Xylosoxidans 2) Paroxysmal Atrial Fibrillation - Amiodarone 400mg BID - Dig 0.125mg daily - Stop Heparin 5,000 due to hemoccult positive stool - No anticoagulation given bleeding 3) Hemoccult Positive - Continue Pantoprazole as per GI recommendations - Discontinue Heparin - Hgb 7.4 today - Follow H/H, consider transfusion with continued drop 4) Acute Kidney Injury - Creatinine of 1.3 today - Ferguson catheter in place since admission - Strict I/Os - 700ml urine output yesterday - Lasix 40mg PO today 5) Speech Therapy 11/25 Evaluation 1. Moist mechanical soft diet as tolerated 2. STRICT aspiration precautions, straws OK with small single sips. Fully upright for p.o. intake and for 30 minutes after intake. Stringent oral care. Supervision while eating. 3. Small bites, small single sips. Frequent rest breaks and slow rate. No taking while eating. Should the patient have any difficulty tolerating this diet with these strategies, modify diet to pureed. 4. Will follow for tolerance. 6) Constipation - Milk of Magnesia - Miralax - Senna 7) Code Status - DNR History Resident Physician Supervision Note: I have seen and examined the patient and discussed the case in depth with Dr Wilson. I discussed the case with the resident and agree with the findings and plan as documented in the note. Any exceptions or clarifications are listed here: Patient remains on BiPAP and can only tolerate being off that for 10 minutes at a time before she becomes hypoxic and tachypneic again. Vital signs reviewed, currently in normal sinus rhythm Mild distress, alert and awake Regular rate and rhythm, no murmurs gallops or rubs Diffuse rhonchi and crackles at the bases Abdomen soft positive bowel sounds nontender nondistended Extremities 1+ pitting edema left greater than right to the knees bilaterally Skin multiple ecchymoses on the extremities This patient is a 76-year-old female with acute on chronic hypercarbic and hypoxemic respiratory failure requiring intubation twice this admission, severe COPD, now with suspected parapneumonic effusion however pleural fluid is transudative, with suspected loculation now status post chest tube placement and instillation of DNase and alteplase. Also with paroxysmal atrial fibrillation and worsening anemia from gastrointestinal bleeding. Prognosis for being able to remain off noninvasive ventilatory support is guarded at this time.-This was discussed with the family -Appreciate cd technician management for parapneumonic effusion and chest tube placement-continue Primaxin and follow chest x-rays, CBC to follow leukocytosis back to normal -A. fib is now converted to normal sinus rhythm, cardiology is following, no anticoagulation due to heme positive stool and current anemia, on digoxin and amiodarone for rate and rhythm control respectively-plan is to decrease amiodarone to 400 mg by mouth once daily starting tomorrow, cardiology suggested digoxin only on Wednesday, however it is ordered for daily for now and the level is to be checked in 2 days-can adjust as needed based on that -Continue BiPAP as needed which for now as most of the time -Hemoccult stool is positive, hemoglobin down to 7.4 today, remains on subcutaneous heparin for DVT prophylaxis which we will stop today-follow CBC in the morning and transfuse as needed to keep hemoglobin greater than 7 Documented By: Kristal Blevins
[2016-12-08] MEDS: LEVALBUTEROL 1.25MG/0.5ML NEB INH SCH (20:17)
[2016-12-08] MEDS: DOCUSATE SODIUM 100 MG/10 ML UDC PO SCH (20:42)
[2016-12-08] MEDS: MONTELUKAST SOD 10 MG TAB PO SCH (20:43)
[2016-12-08] MEDS: BOOST BREEZE NUTRITION DRINK 1 BOX PO SCH (20:45)
[2016-12-08] MEDS ORDERED: LEVALBUTEROL/IPRATROPIUM NEB INH SCH (21:00)
[2016-12-08] MEDS ORDERED: IPRATROPIUM BROMIDE NEB SOLN 0.02% 2.5 ML VIAL INH SCH (21:00)
[2016-12-08] MEDS ORDERED: LEValbuterol HFA 15GM INHALER INH SCH (23:30)
[2016-12-09] VITALS (14 sets, daily range): BP systolic 98–130; BP diastolic 39–58; PULSE 80–93; TEMP 36.6–37.1; O2SAT 93–99
[2016-12-09] MEDS ORDERED: IPRATROPIUM BROMIDE HFA INHALER INH SCH
[2016-12-09] MEDS: METHYLPREDNISOLONE IV 40 MG in SYRINGE 0 ML IV SCH ×2 (01:59→13:48)
[2016-12-09] MEDS: LEVALBUTEROL 1.25MG/0.5ML NEB INH SCH ×4 (02:01→20:04)
[2016-12-09] MEDS: IMIPENEM/CILASTATIN IV 500 MG in DEXTROSE 5% 100ML 100 ML IV SCH ×3 (03:47→21:53)
[2016-12-09 05:40] LABS: BASO % 0.1 %; BASO ABS # 0.01 K/uL (0-0.2); HEMATOCRIT 25.7 % (37-47); IG% 0.2 %; LYMPH % 3.8 %; LYMPH ABS # 0.59 K/uL (1.2-3.4); MEAN CORPUSCULAR HEMOGLOBIN 30.4 pg (25-34); MEAN CORPUSCULAR HGB CONC 30.4 g/dl (32-36); MEAN PLATELET VOLUME 9.2 fL (7.4-10.4); MONO % 3.3 %; NEUT % 92.6 %; PLATELET COUNT 202 K/uL (130-400); RED BLOOD COUNT 2.57 M/uL (4.2-5.4); WHITE BLOOD COUNT 15.43 K/uL (4.8-10.8)
[2016-12-09 05:50] LABS: PARTIAL THROMBOPLASTIN RATIO 0.9
[2016-12-09 06:01] LABS: ANISOCYTOSIS PRESENT; COMPLETE YES
[2016-12-09 06:21] LABS: BUN/CREATININE RATIO 57.9 (10-20); CALCIUM 8.8 mg/dl (8.5-10.1); CREATININE 1.1 mg/dl (0.60-1.20); POTASSIUM 5.2 mmol/L (3.5-5.1)
[2016-12-09] MEDS: BOOST VANILLA PO SCH ×4 (07:15→16:30)
--- NOTE | 2016-12-09 07:45 | DIAGNOSTIC IMAGING REPORT ---
SINGLE VIEW CHEST CLINICAL HISTORY: Follow-up pneumonia. FINDINGS: An AP, portable, upright chest radiograph is compared to study dated 12/08/2016 and correlated with chest CT dated 06/10/2012. The examination is significantly degraded by portable technique and patient rotation. A right PICC line is unchanged in position. The heart is normal for projection and there is atherosclerotic calcification of the thoracic aorta. Emphysema and chronic interstitial thickening are similar to previous. A pleural drain is again seen at the left lung base. There are small pleural effusions, left larger than right with bibasilar airspace consolidation. A calcified granuloma is noted at the right apex. No pneumothorax is seen. The skeletal structures are osteopenic. The bony thorax is grossly intact. IMPRESSION: 1. No significant change from yesterday. 2. A pleural drain at the left lung base is unchanged in position. 3. Small pleural effusions, left larger than right with bibasilar consolidation persist. 4. Emphysema. Electronically signed by: Darci Hobbs M.D. 12/09/2016 7:44 AM Dictated Date/Time: 12/09/2016 7:41 AM
[2016-12-09] MEDS: ASPIRIN 81 MG CHEW PO SCH (07:58)
[2016-12-09] MEDS: ATORVASTATIN 40 MG TAB PO SCH (07:59)
[2016-12-09] MEDS: DOCUSATE SODIUM 100 MG/10 ML UDC PO SCH ×2 (07:59→21:00)
[2016-12-09] MEDS: AMIODARONE 200 MG TAB PO SCH (08:01)
[2016-12-09] MEDS: ROFLUMILAST 500 MCG TAB PO SCH (08:02)
[2016-12-09] MEDS: SENNA 8.6 MG TAB PO SCH (08:02)
[2016-12-09] MEDS: POLYETHYLENE (MIRALAX) 17 GM PACK PO SCH (08:02)
[2016-12-09] MEDS: PANTOprazole SOD 40 MG TAB PO SCH (08:02)
[2016-12-09] MEDS: BOOST BREEZE NUTRITION DRINK 1 BOX PO SCH ×2 (08:07→21:53)
[2016-12-09] MEDS ORDERED: FENTANYL CITRATE INJ 50 MCG/1 ML 2 ML VIAL IV ONE (08:45)
[2016-12-09] MEDS ORDERED: FENTANYL CITRATE INJ 50 MCG/1 ML 2 ML VIAL ONE (08:46)
[2016-12-09] MEDS: INSULIN ASPART 100 UNITS/ML 3 ML PEN SC SCH ×4 (08:56→21:00)
[2016-12-09] MEDS: DORNASE ALFA 2.5MG 5 ML in SYRINGE 25 ML IPL SCH (09:00)
[2016-12-09] MEDS: ALTEPLASE, RECOMBINANT 1 MG/ML 2 ML VIAL IPL SCH (09:00)
[2016-12-09] MEDS ORDERED: SODIUM CHLORIDE 0.9% 250 ML BAG IV ONE (09:41)
[2016-12-09] MEDS ORDERED: MIDAZOLAM HCL 5 MG/ML 1 ML VIAL IV ONE (09:41)
--- NOTE | 2016-12-09 10:40 | Critical Care Progress Note ---
Critical Care Progress Note Date of Service Dec 09, 2016. Attending Dr. Krause Subjective Downgraded to Tele status yesterday but remains in ICU for intrapleural fibrinolytic placement by Dr Krause. When we discussed this with her today, she said it hurts too much last time, and wanted to discuss this with her before getting it again. She was provided with 25mcg fentanyl as this was meant to be for prior to fibrinolytics. Objective GENERAL: Awake, eyes open, good tracking. HENT: Normocephalic, atraumatic. EYES: Normal conjunctiva. Sclera non-icteric. NECK: Supple. No nuchal rigidity. FROM. No JVD. RESPIRATORY: Crackles to left base, similar to yesterday. Chest drain in situ. CARDIAC: Regular rate, normal rhythm. Extremities warm and well perfused. Pulses equal. ABDOMEN: Soft, non-distended. No tenderness to palpation. No rebound or guarding. LOWER EXTREMITIES: Calves are equal size bilaterally and non-tender. No edema. No discoloration. NEURO: GCS 15. SKIN: No rash or jaundice noted. Current SOFA Score SOFA Score Response (Comments) Value PaO2/FiO2 (mmHg) < 400 1 Level of Hypotension No Hypotension 0 Total 1 Previous SOFA Scores 10 (12/07/16) Assessment & Plan L parapneumonic effusion - Will reassess the pt in the afternoon to see if she agrees to intrapleural tPA and DNAse - Continue abx End stage COPD - Continue steroids and taper (already ordered) - Nebulizers as needed - Case Mx discussing LTAC with patient, as she has multiple needs and potential for rehab. Need to discuss w/family. We will continue to follow while patient is in ICU. Anticipate transfer out tomorrow with chest tube removal at that time. Resident Physician Supervision Note: Dr. Hightower was resident physician during care of patient. I separately evaluated patient and did history and exam. I discussed the case with the resident and generally agree with the findings and plan. Patient refused intrapleural fibrinolytics secondary to pain. I emphasized this is to decrease the concern for a loculated pleural effusion or empyema that could possibly necessitate surgical intervention. She desired to wait until she had a chance to discuss her options with her . If we are not going to continue with the intrapleural fibrinolytics I will likely discontinue the chest tube tomorrow. Documented By: Elie Krause DO [place] Score Date Score Was Generated: Dec 07, 2016 [place] Total: 24 Consults & Procedures Consultants: Pulmonary ID Cardiology Procedures: Intubated 11/21/16, Extubated Intubated 12/06/16, Extubated 12/08/16 Data Medications: Current Inpatient Medications Medications (Trade) Dose Ordered Sig/Omkar Route Start Time Stop Time Status Last Admin Dose Admin Acetaminophen (Tylenol Tab) 650 mg Q4H PRN PO 11/21/16 15:45 12/21/16 15:44 12/08/16 12:57 650 MG Atorvastatin Calcium (Lipitor Tab) 40 mg DAILY PO 11/22/16 09:00 12/22/16 08:59 12/09/16 07:59 40 MG Montelukast Sodium (Singulair Tab) 10 mg QPM PO 11/21/16 21:00 12/21/16 20:59 12/08/16 20:43 10 MG Propranolol HCl (Inderal Tab) 80 mg BID PO 11/21/16 21:00 12/21/16 20:59 Future Hold 12/06/16 07:57 80 MG Roflumilast (Daliresp Tab) 500 mcg DAILY PO 11/22/16 09:00 12/22/16 08:59 12/09/16 08:02 500 MCG Senna (Senokot Tab) 8.6 mg QAM PO 11/22/16 09:00 12/22/16 08:59 12/08/16 10:35 8.6 MG Aspirin (Aspirin Chew) 81 mg DAILY PO 11/23/16 09:00 12/23/16 08:59 12/09/16 07:58 81 MG Heparin Sodium (Porcine) (Heparin 10 Unit/ ml 5 ml Flush) 5 ml PRN PRN FLUSH 11/25/16 04:15 12/25/16 04:14 12/08/16 22:13 5 ML Ondansetron HCl (Zofran Tab) 4 mg Q4H PRN PO 11/26/16 00:30 12/26/16 00:29 11/26/16 03:06 4 MG Lisinopril (Zestril Tab) 5 mg DAILY PO 11/27/16 09:00 12/27/16 08:59 Future Hold 11/27/16 10:01 5 MG Triamterene/HCTZ (Dyazide 37.5/25 Mg Cap) 1 cap DAILY PO 11/27/16 09:00 12/27/16 08:59 Future Hold 11/27/16 10:02 1 CAP Enteral Nutritional Formula (Boost) 1 can BIDM PO 11/26/16 16:30 12/26/16 16:29 Future hold 12/08/16 16:42 1 CAN Metoprolol Tartrate (Lopressor Iv) 5 mg Q4H PRN IV 11/28/16 19:45 12/28/16 19:44 Future Hold 11/30/16 08:11 5 MG Enteral Nutritional Formula 1 box 1 box BID PO 12/02/16 21:00 01/01/17 20:59 Future hold 12/09/16 08:07 1 BOX Imipenem/ Cilastatin Sodium/ Dextrose (Primaxin Iv/D5 100ml) 110 ml @ 100 mls/hr Q8H IV 12/04/16 12:00 12/11/16 11:59 12/09/16 03:47 100 MLS/HR Magnesium Hydroxide (Milk Of Magnesia Susp) 30 ml Q6H PRN PO 12/05/16 11:00 01/04/17 10:59 12/08/16 07:58 30 ML Polyethylene (Miralax Powder Packet) 17 gm DAILY PRN PO 12/05/16 11:00 01/04/17 10:59 12/07/16 09:14 17 GM Midazolam HCl (Versed Inj) 2 mg Q4H PRN IV 12/07/16 10:00 01/06/17 09:59 Miscellaneous Information (Consult Glycemic Management Pharmacy) 1 ea UD PRN N/A 12/07/16 10:37 01/06/17 10:36 Alteplase, Recombinant 10 mg 10 mg BID IPL 12/07/16 17:00 12/09/16 21:01 12/08/16 20:34 10 MG Dornase Ronnie 5 ml/ Syringe 30 ml @ 0 mls/hr BID IPL 12/08/16 09:00 12/10/16 09:01 12/08/16 20:36 0 MLS/HR Methylprednisolone Sodium Succinate/ Syringe (Solu-Medrol IV/ Syringe) 0.64 ml @ 1.5 mls/min Q12H IV 12/08/16 14:00 12/11/16 13:59 12/09/16 01:59 1.5 MLS/MIN Digoxin (Lanoxin Tab) 0.125 mg DAILY@16 PO 12/08/16 16:00 01/07/17 15:59 12/08/16 16:26 0.125 MG Docusate Sodium (coLACE SYRUP) 100 mg BID PO 12/08/16 21:00 01/07/17 20:59 Polyethylene (Miralax Powder Packet) 17 gm DAILY PO 12/09/16 09:00 01/08/17 08:59 Docusate Sodium (coLACE CAP) 100 mg BID PRN PO 12/08/16 10:00 01/07/17 09:59 Pantoprazole Sodium (Protonix Tab) 40 mg QAM PO 12/09/16 09:00 01/08/17 08:59 12/09/16 08:02 40 MG Insulin Aspart (novoLOG ASPART) SLIDING SCALE ACHS SC 12/08/16 11:30 01/07/17 11:29 12/08/16 20:55 1 UNITS Prednisone (PredniSONE TAB) 40 mg Taper DAILY PO 12/11/16 09:00 12/19/16 08:59 Acetaminophen/ Hydrocodone Bitart ([place] 5/325 Tab) 1-2 tab for pain 1 tab ... Q4H PRN PO 12/08/16 16:30 12/22/16 16:29 12/09/16 08:01 2 TAB Amiodarone HCl (Cordarone Tab) 400 mg QAM PO 12/09/16 09:00 01/08/17 08:59 12/09/16 08:01 400 MG Levalbuterol (Xopenex 1.25MG/ 0.5ML Neb) 1.25 mg Q6R INH 12/08/16 21:00 01/07/17 20:59 12/09/16 07:20 1.25 MG I & O: 24-Hour Column 12/09/16 08:00 Intake Total 664 ml Output Total 1755 ml Balance -1091 ml Vital Signs: Date Time Temp Pulse Resp B/P Pulse Ox O2 Delivery O2 Flow Rate FiO2 12/09/16 08:00 36.9 93 26 114/48 94 Nasal Cannula 6.0 12/09/16 07:20 86 28 96 BiPAP/CPAP 50 12/09/16 04:00 96 BiPAP 50 12/09/16 04:00 37.1 85 25 113/42 97 BiPAP 50 12/09/16 02:02 89 98 50 12/09/16 02:01 89 24 98 BiPAP/CPAP 50 12/09/16 00:00 37.0 80 24 122/58 98 BiPAP 50 12/09/16 00:00 98 BiPAP 50 12/08/16 21:52 86 100 50 12/08/16 20:19 87 92 50 12/08/16 20:18 87 18 92 BiPAP/CPAP 12/08/16 20:00 90 Nasal Cannula 5.0 12/08/16 20:00 36.8 88 24 124/54 92 Nasal Cannula 5.0 12/08/16 18:00 36.9 80 18 115/44 90 BiPAP 50 12/08/16 16:26 80 12/08/16 16:00 Nasal Cannula 4.0 12/08/16 16:00 36.9 77 24 102/41 92 Nasal Cannula 4.0 12/08/16 14:00 76 21 109/42 90 Nasal Cannula 4.0 12/08/16 12:00 36.8 76 31 104/37 95 Nasal Cannula 4.0 12/08/16 12:00 Nasal Cannula 4.0 Laboratory Results: Last 24 Hours Test 12/08/16 12:30 12/08/16 12:47 12/08/16 16:32 12/08/16 20:52 Stool Occult Blood POSITIVE Bedside Glucose 152 mg/dl 154 mg/dl 192 mg/dl Test 12/09/16 05:32 12/09/16 07:48 White Blood Count 15.43 K/uL Red Blood Count 2.57 M/uL Hemoglobin 7.8 g/dL Hematocrit 25.7 % Mean Corpuscular Volume 100.0 fL Mean Corpuscular Hemoglobin 30.4 pg Mean Corpuscular Hemoglobin Concent 30.4 g/dl Platelet Count 202 K/uL Mean Platelet Volume 9.2 fL Neutrophils (%) (Auto) 92.6 % Lymphocytes (%) (Auto) 3.8 % Monocytes (%) (Auto) 3.3 % Eosinophils (%) (Auto) 0.0 % Basophils (%) (Auto) 0.1 % Neutrophils # (Auto) 14.29 K/uL Lymphocytes # (Auto) 0.59 K/uL Monocytes # (Auto) 0.51 K/uL Eosinophils # (Auto) 0.00 K/uL Basophils # (Auto) 0.01 K/uL RDW Standard Deviation 49.4 fL RDW Coefficient of Variation 13.5 % Immature Granulocyte % (Auto) 0.2 % Immature Granulocyte # (Auto) 0.03 K/uL Anisocytosis PRESENT Activated Partial Thromboplast Time 22.1 SECONDS Partial Thromboplastin Ratio 0.9 Sodium Level 146 mmol/L Potassium Level 5.2 mmol/L 5.4 mmol/L Chloride Level 98 mmol/L Carbon Dioxide Level 48 mmol/L Anion Gap 0.0 mmol/L Blood Urea Nitrogen 64 mg/dl Creatinine 1.10 mg/dl Est Creatinine Clear Calc Drug Dose 42.1 ml/min Estimated GFR () 56.1 Estimated GFR (Non- 48.4 BUN/Creatinine Ratio 57.9 Random Glucose 166 mg/dl Calcium Level 8.8 mg/dl Resident Tracking Resident Involvement: Resident Care Provided Care Provided: Adult Hospital Medicine (ICU)
--- NOTE | 2016-12-09 13:01 | Cardiology Follow-Up ---
Subjective Date of Service: Dec 09, 2016. Pt evaluation today including: conversation w/ patient, conversation w/ family , physical exam, lab review, review of inpatient medication list History of Present Illness This is a 76-year-old woman who has a history of severe COPD (with a long smoking history) as well as diabetes mellitus, hypertension, hypercholesterolemia and anemia. She was admitted with respiratory failure and required intubation, she has now improved and has been extubated. This morning at around 8:00 she went into atrial fibrillation with a rapid heart rate, she was given a 15 mg bolus of diltiazem and she remains in atrial fibrillation with a somewhat rapid heart rate. She denies palpitations. From the cardiovascular standpoint as far as I know she has never had coronary artery disease identified, she has however evidently had atrial fibrillation in the past. Although I cannot find any direct mention of it in the office records she reports having it for many years and "doctoring" for it. By that she tells me that she was on Inderal for her atrial fibrillation, and she tells me she was on aspirin but denies ever being offered an anticoagulant. I can't tell from her history where or when the arrhythmia was diagnosed or how often she had it or its nature (brief or persistent episodes) and although she does say that at time she will have an irregular heart rate that might last days at a time. She had remained in atrial fibrillation therefore I started her on intravenous diltiazem for rate control, which worked fairly well after she received several doses of digoxin. I also started intravenous heparin. She remained unaware of the arrhythmia. She had recurrent atrial fibrillation and we started intravenous amiodarone on 11/28/2016. After several days she had good control of her arrhythmia, she remained on intravenous heparin however had a drop in hemoglobin and that was discontinued. She was converted to oral amiodarone ( 400mg BID) on 12/01/2016 with overlap of IV until 12/02/2016. This was reduced to 400 mg daily after 1 week. She continued to have good control of her atrial fibrillation, with no episodes other than a brief episode over the weekend. She is now extubated and is alert. No complaints. Social History Smoking Status: Current Every Day Smoker Review of Systems Respiratory: + dyspnea at rest, + shortness of breath Cardiac: No chest pain ROS limited by intubation Medications Cardiovascular: Item Value Date Time Amiodarone HCl 400 mg 12/09/16 0900 (Cordarone Tab) QAM/PO 12/09/16 0801 Digoxin 0.125 mg 12/08/16 1600 (Lanoxin Tab) DAILY@16/PO 12/08/16 1626 Objective Vital Signs Past 12 Hours Date Time Temp Pulse Resp B/P Pulse Ox O2 Delivery O2 Flow Rate FiO2 12/09/16 10:00 36.9 89 27 130/45 96 BiPAP 50 12/09/16 08:00 36.9 93 26 114/48 94 Nasal Cannula 6.0 12/09/16 08:00 Nasal Cannula 6.0 12/09/16 07:20 86 28 96 BiPAP/CPAP 50 12/09/16 04:00 96 BiPAP 50 12/09/16 04:00 37.1 85 25 113/42 97 BiPAP 50 12/09/16 02:02 89 98 50 12/09/16 02:01 89 24 98 BiPAP/CPAP 50 Last Recorded Weight-Kilograms: 73.700 Intake & Output 8-Hour Column 12/08/16 12/09/16 12/09/16 16:00 00:00 08:00 Intake Total 119 ml 310 ml 235 ml Output Total 535 ml 750 ml 470 ml Balance -416 ml -440 ml -235 ml 24-Hour Column 12/09/16 08:00 Intake Total 664 ml Output Total 1755 ml Balance -1091 ml Physical Exam Constitutional: Level of Distress: NAD Lungs: Respiratory effort: good air movement Auscultation: decreased breath sounds, pertinent finding (Intubated) Cardiovascular: Heart Auscultation: RRR, no murmurs, no rubs, no gallops Peripheral Pulses: Bruits: none appreciated Extremities: no edema Data Laboratory Results: Last 24 Hours Test 12/08/16 16:32 12/08/16 20:52 12/09/16 05:32 12/09/16 07:48 Bedside Glucose 154 mg/dl 192 mg/dl White Blood Count 15.43 K/uL Red Blood Count 2.57 M/uL Hemoglobin 7.8 g/dL Hematocrit 25.7 % Mean Corpuscular Volume 100.0 fL Mean Corpuscular Hemoglobin 30.4 pg Mean Corpuscular Hemoglobin Concent 30.4 g/dl Platelet Count 202 K/uL Mean Platelet Volume 9.2 fL Neutrophils (%) (Auto) 92.6 % Lymphocytes (%) (Auto) 3.8 % Monocytes (%) (Auto) 3.3 % Eosinophils (%) (Auto) 0.0 % Basophils (%) (Auto) 0.1 % Neutrophils # (Auto) 14.29 K/uL Lymphocytes # (Auto) 0.59 K/uL Monocytes # (Auto) 0.51 K/uL Eosinophils # (Auto) 0.00 K/uL Basophils # (Auto) 0.01 K/uL RDW Standard Deviation 49.4 fL RDW Coefficient of Variation 13.5 % Immature Granulocyte % (Auto) 0.2 % Immature Granulocyte # (Auto) 0.03 K/uL Anisocytosis PRESENT Activated Partial Thromboplast Time 22.1 SECONDS Partial Thromboplastin Ratio 0.9 Sodium Level 146 mmol/L Potassium Level 5.2 mmol/L 5.4 mmol/L Chloride Level 98 mmol/L Carbon Dioxide Level 48 mmol/L Anion Gap 0.0 mmol/L Blood Urea Nitrogen 64 mg/dl Creatinine 1.10 mg/dl Est Creatinine Clear Calc Drug Dose 42.1 ml/min Estimated GFR () 56.1 Estimated GFR (Non- 48.4 BUN/Creatinine Ratio 57.9 Random Glucose 166 mg/dl Calcium Level 8.8 mg/dl Test 12/09/16 11:26 Bedside Glucose 206 mg/dl Telemetry reviewed: No atrial fibrillation past 3 days Assessment and Plan #1. Atrial fibrillation: Her and her are certainly familiar with the term atrial fibrillation and tell me that she had it diagnosed many years ago. I can't find specifics about it, but she has never been offered an anticoagulant but she was on Inderal presumably for the arrhythmia. She probably has paroxysmal atrial fibrillation based on this information but I can' t be sure. Her heart rate was fairly well controlled on diltiazem and digoxin, although her blood pressure was borderline. Amiodarone appeared to convert the rhythm (or at least the arrhythmia converted to sinus rhythm on amiodarone intravenously) but she continued to have paroxysmal atrial fibrillation for several days. However more recently she has had very good control of her atrial fibrillation and remains on oral amiodarone. She started oral 12/01/2016 and I discontinued the IV amiodarone 12/02/2016, that may have allowed recurrence of her atrial fibrillation as it can take some time to load orally. She was on 400 BID for about 1 week, now reduced to 400 daily. She was on digoxin as well for rate control, her digoxin level 12/02/2016 was 1.7, amiodarone does raise digoxin levels. We should probably reduce the dose if she needs rate control, right now rhythm is in good control. I would use 0.125 mg Wednesday and Wednesday. #2. Anticoagulation: At the moment we don't need anticoagulation since she is in sinus rhythm, over the long run from the cardiovascular standpoint it would be better for her to be on an anticoagulant but it may be too risky. We do not need to make that determination at this time. Thank you for allowing me to participate in her care.
--- NOTE | 2016-12-09 13:40 | Infectious Disease Progress Nt ---
Progress Note Date of Service Dec 09, 2016. Subjective Pt evaluation today including: conversation w/ patient, physical exam, chart review, lab review, review of studies, conversation w/ sr risk management consultant (Dr. Wilson, Dr. Blevins), review of inpatient medication list Patient is feeling poorly this morning. She has BiPAP in place on exam. White blood cell was 15.43 today. Her carbon dioxide level was 48. Her potassium level was elevated 5.4 this morning. She states that she continues to be short of breath, but has been coughing. No new micro. Repeat chest x-ray this morning showed pleural drain in place and no real change from yesterday. All Other Systems: Reviewed and Negative Medications Current Inpatient Medications Medications (Trade) Dose Ordered Sig/Omkar Route Start Time Stop Time Status Last Admin Dose Admin Acetaminophen (Tylenol Tab) 650 mg Q4H PRN PO 11/21/16 15:45 12/21/16 15:44 12/08/16 12:57 650 MG Atorvastatin Calcium (Lipitor Tab) 40 mg DAILY PO 11/22/16 09:00 12/22/16 08:59 12/09/16 07:59 40 MG Montelukast Sodium (Singulair Tab) 10 mg QPM PO 11/21/16 21:00 12/21/16 20:59 12/08/16 20:43 10 MG Propranolol HCl (Inderal Tab) 80 mg BID PO 11/21/16 21:00 12/21/16 20:59 Future Hold 12/06/16 07:57 80 MG Roflumilast (Daliresp Tab) 500 mcg DAILY PO 11/22/16 09:00 12/22/16 08:59 12/09/16 08:02 500 MCG Senna (Senokot Tab) 8.6 mg QAM PO 11/22/16 09:00 12/22/16 08:59 12/08/16 10:35 8.6 MG Aspirin (Aspirin Chew) 81 mg DAILY PO 11/23/16 09:00 12/23/16 08:59 12/09/16 07:58 81 MG Heparin Sodium (Porcine) (Heparin 10 Unit/ ml 5 ml Flush) 5 ml PRN PRN FLUSH 11/25/16 04:15 12/25/16 04:14 12/08/16 22:13 5 ML Ondansetron HCl (Zofran Tab) 4 mg Q4H PRN PO 11/26/16 00:30 12/26/16 00:29 11/26/16 03:06 4 MG Lisinopril (Zestril Tab) 5 mg DAILY PO 11/27/16 09:00 12/27/16 08:59 Future Hold 11/27/16 10:01 5 MG Triamterene/HCTZ (Dyazide 37.5/25 Mg Cap) 1 cap DAILY PO 11/27/16 09:00 12/27/16 08:59 Future Hold 11/27/16 10:02 1 CAP Enteral Nutritional Formula (Boost) 1 can BIDM PO 11/26/16 16:30 12/26/16 16:29 Future hold 12/08/16 16:42 1 CAN Metoprolol Tartrate (Lopressor Iv) 5 mg Q4H PRN IV 11/28/16 19:45 12/28/16 19:44 Future Hold 11/30/16 08:11 5 MG Enteral Nutritional Formula 1 box 1 box BID PO 12/02/16 21:00 01/01/17 20:59 Future hold 12/09/16 08:07 1 BOX Imipenem/ Cilastatin Sodium/ Dextrose (Primaxin Iv/D5 100ml) 110 ml @ 100 mls/hr Q8H IV 12/04/16 12:00 12/11/16 11:59 12/09/16 03:47 100 MLS/HR Magnesium Hydroxide (Milk Of Magnesia Susp) 30 ml Q6H PRN PO 12/05/16 11:00 01/04/17 10:59 12/08/16 07:58 30 ML Polyethylene (Miralax Powder Packet) 17 gm DAILY PRN PO 12/05/16 11:00 01/04/17 10:59 12/07/16 09:14 17 GM Midazolam HCl (Versed Inj) 2 mg Q4H PRN IV 12/07/16 10:00 01/06/17 09:59 Miscellaneous Information (Consult Glycemic Management Pharmacy) 1 ea UD PRN N/A 12/07/16 10:37 01/06/17 10:36 Alteplase, Recombinant 10 mg 10 mg BID IPL 12/07/16 17:00 12/09/16 21:01 12/08/16 20:34 10 MG Dornase Ronnie 5 ml/ Syringe 30 ml @ 0 mls/hr BID IPL 12/08/16 09:00 12/10/16 09:01 12/08/16 20:36 0 MLS/HR Methylprednisolone Sodium Succinate/ Syringe (Solu-Medrol IV/ Syringe) 0.64 ml @ 1.5 mls/min Q12H IV 12/08/16 14:00 12/11/16 13:59 12/09/16 01:59 1.5 MLS/MIN Digoxin (Lanoxin Tab) 0.125 mg DAILY@16 PO 12/08/16 16:00 01/07/17 15:59 12/08/16 16:26 0.125 MG Docusate Sodium (coLACE SYRUP) 100 mg BID PO 12/08/16 21:00 01/07/17 20:59 Polyethylene (Miralax Powder Packet) 17 gm DAILY PO 12/09/16 09:00 01/08/17 08:59 Docusate Sodium (coLACE CAP) 100 mg BID PRN PO 12/08/16 10:00 01/07/17 09:59 Pantoprazole Sodium (Protonix Tab) 40 mg QAM PO 12/09/16 09:00 01/08/17 08:59 12/09/16 08:02 40 MG Insulin Aspart (novoLOG ASPART) SLIDING SCALE ACHS SC 12/08/16 11:30 01/07/17 11:29 12/08/16 20:55 1 UNITS Prednisone (PredniSONE TAB) 40 mg Taper DAILY PO 12/11/16 09:00 12/19/16 08:59 Acetaminophen/ Hydrocodone Bitart ([place] 5/325 Tab) 1-2 tab for pain 1 tab ... Q4H PRN PO 12/08/16 16:30 12/22/16 16:29 12/09/16 08:01 2 TAB Amiodarone HCl (Cordarone Tab) 400 mg QAM PO 12/09/16 09:00 01/08/17 08:59 12/09/16 08:01 400 MG Levalbuterol (Xopenex 1.25MG/ 0.5ML Neb) 1.25 mg Q6R INH 12/08/16 21:00 01/07/17 20:59 12/09/16 07:20 1.25 MG Objective Vital Signs Date Time Temp Pulse Resp B/P Pulse Ox O2 Delivery O2 Flow Rate FiO2 12/09/16 10:00 36.9 89 27 130/45 96 BiPAP 50 12/09/16 08:00 36.9 93 26 114/48 94 Nasal Cannula 6.0 12/09/16 08:00 Nasal Cannula 6.0 12/09/16 07:20 86 28 96 BiPAP/CPAP 50 12/09/16 04:00 96 BiPAP 50 12/09/16 04:00 37.1 85 25 113/42 97 BiPAP 50 12/09/16 02:02 89 98 50 12/09/16 02:01 89 24 98 BiPAP/CPAP 50 12/09/16 00:00 37.0 80 24 122/58 98 BiPAP 50 12/09/16 00:00 98 BiPAP 50 12/08/16 21:52 86 100 50 12/08/16 20:19 87 92 50 12/08/16 20:18 87 18 92 BiPAP/CPAP 12/08/16 20:00 90 Nasal Cannula 5.0 12/08/16 20:00 36.8 88 24 124/54 92 Nasal Cannula 5.0 12/08/16 18:00 36.9 80 18 115/44 90 BiPAP 50 12/08/16 16:26 80 12/08/16 16:00 Nasal Cannula 4.0 12/08/16 16:00 36.9 77 24 102/41 92 Nasal Cannula 4.0 12/08/16 14:00 76 21 109/42 90 Nasal Cannula 4.0 Physical Exam General Appearance: + moderate distress Eyes: normal inspection, sclerae normal ENT: hearing grossly normal Neck: supple, trachea midline Respiratory/Chest: + respiratory distress, + pertinent finding (BiPap in place) Cardiovascular: regular rate, rhythm Neurologic/Psychiatric: alert Skin: normal color, warm/dry Laboratory Results SINGLE VIEW CHEST CLINICAL HISTORY: Follow-up pneumonia. FINDINGS: An AP, portable, upright chest radiograph is compared to study dated 12/08/2016 and correlated with chest CT dated 06/10/2012. The examination is significantly degraded by portable technique and patient rotation. A right PICC line is unchanged in position. The heart is normal for projection and there is atherosclerotic calcification of the thoracic aorta. Emphysema and chronic interstitial thickening are similar to previous. A pleural drain is again seen at the left lung base. There are small pleural effusions, left larger than right with bibasilar airspace consolidation. A calcified granuloma is noted at the right apex. No pneumothorax is seen. The skeletal structures are osteopenic. The bony thorax is grossly intact. IMPRESSION: 1. No significant change from yesterday. 2. A pleural drain at the left lung base is unchanged in position. 3. Small pleural effusions, left larger than right with bibasilar consolidation persist. 4. Emphysema. Last 24 Hours Test 12/08/16 16:32 12/08/16 20:52 12/09/16 05:32 12/09/16 07:48 Bedside Glucose 154 mg/dl 192 mg/dl White Blood Count 15.43 K/uL Red Blood Count 2.57 M/uL Hemoglobin 7.8 g/dL Hematocrit 25.7 % Mean Corpuscular Volume 100.0 fL Mean Corpuscular Hemoglobin 30.4 pg Mean Corpuscular Hemoglobin Concent 30.4 g/dl Platelet Count 202 K/uL Mean Platelet Volume 9.2 fL Neutrophils (%) (Auto) 92.6 % Lymphocytes (%) (Auto) 3.8 % Monocytes (%) (Auto) 3.3 % Eosinophils (%) (Auto) 0.0 % Basophils (%) (Auto) 0.1 % Neutrophils # (Auto) 14.29 K/uL Lymphocytes # (Auto) 0.59 K/uL Monocytes # (Auto) 0.51 K/uL Eosinophils # (Auto) 0.00 K/uL Basophils # (Auto) 0.01 K/uL RDW Standard Deviation 49.4 fL RDW Coefficient of Variation 13.5 % Immature Granulocyte % (Auto) 0.2 % Immature Granulocyte # (Auto) 0.03 K/uL Anisocytosis PRESENT Activated Partial Thromboplast Time 22.1 SECONDS Partial Thromboplastin Ratio 0.9 Sodium Level 146 mmol/L Potassium Level 5.2 mmol/L 5.4 mmol/L Chloride Level 98 mmol/L Carbon Dioxide Level 48 mmol/L Anion Gap 0.0 mmol/L Blood Urea Nitrogen 64 mg/dl Creatinine 1.10 mg/dl Est Creatinine Clear Calc Drug Dose 42.1 ml/min Estimated GFR () 56.1 Estimated GFR (Non- 48.4 BUN/Creatinine Ratio 57.9 Random Glucose 166 mg/dl Calcium Level 8.8 mg/dl Test 12/09/16 11:26 Bedside Glucose 206 mg/dl Assessment and Plan (1) Hyperglycemia Status: Acute (2) Chronic intermittent steroid use (3) KARINA (acute kidney injury) (4) COPD exacerbation Status: Acute (5) Acute respiratory failure Patient with SOB and productive cough with Achromobacter xylosoxidans and H. Flu growing in sputum culture. Patient currently on IV Primaxin. She seems to have slight improvement since drainage of parapneumonic effusion. Patient overall with poor prognosis. She likely will need at least 2 weeks of abx therapy if the family wishes to continue treatment. This would be difficult to do at home with Primaxin dosing and patient is Bactrim allergic. Could also consider discontinuing coverage for achromobacter and continuing coverage other previous pathogens at home since effusion appeared transudative. We will continue to follow. PROVIDER ADDENDUM: Patient reviewed with Ms. Estrada. Agree with above assessment.
[2016-12-09] MEDS: DIGOXIN 0.125 MG TAB PO SCH (17:37)
--- NOTE | 2016-12-09 20:58 | Family Medicine Progress Note ---
Progress Note Date of Service Dec 09, 2016. Subjective Pt evaluation today including: conversation w/ patient, physical exam, chart review, lab review, review of studies Pain: No pain reported this morning Patient is resting comfortably in bed this morning with no acute events overnight. Remains on BiPAP but able to answer questions appropriately. Denies any pain this morning. Constitutional: No chills, No fever Respiratory: + shortness of breath, No cough, No sputum Cardiovascular: No chest pain Abdomen: + vomiting, No nausea, No pain Female : No dysuria Medications Current Inpatient Medications Medications (Trade) Dose Ordered Sig/Omkar Route Start Time Stop Time Status Last Admin Dose Admin Acetaminophen (Tylenol Tab) 650 mg Q4H PRN PO 11/21/16 15:45 12/21/16 15:44 12/08/16 12:57 650 MG Atorvastatin Calcium (Lipitor Tab) 40 mg DAILY PO 11/22/16 09:00 12/22/16 08:59 12/09/16 07:59 40 MG Montelukast Sodium (Singulair Tab) 10 mg QPM PO 11/21/16 21:00 12/21/16 20:59 12/08/16 20:43 10 MG Propranolol HCl (Inderal Tab) 80 mg BID PO 11/21/16 21:00 12/21/16 20:59 Future Hold 12/06/16 07:57 80 MG Roflumilast (Daliresp Tab) 500 mcg DAILY PO 11/22/16 09:00 12/22/16 08:59 12/09/16 08:02 500 MCG Senna (Senokot Tab) 8.6 mg QAM PO 11/22/16 09:00 12/22/16 08:59 12/08/16 10:35 8.6 MG Aspirin (Aspirin Chew) 81 mg DAILY PO 11/23/16 09:00 12/23/16 08:59 12/09/16 07:58 81 MG Heparin Sodium (Porcine) (Heparin 10 Unit/ ml 5 ml Flush) 5 ml PRN PRN FLUSH 11/25/16 04:15 12/25/16 04:14 12/08/16 22:13 5 ML Ondansetron HCl (Zofran Tab) 4 mg Q4H PRN PO 11/26/16 00:30 12/26/16 00:29 11/26/16 03:06 4 MG Lisinopril (Zestril Tab) 5 mg DAILY PO 11/27/16 09:00 12/27/16 08:59 Future Hold 11/27/16 10:01 5 MG Triamterene/HCTZ (Dyazide 37.5/25 Mg Cap) 1 cap DAILY PO 11/27/16 09:00 12/27/16 08:59 Future Hold 11/27/16 10:02 1 CAP Enteral Nutritional Formula (Boost) 1 can BIDM PO 11/26/16 16:30 12/26/16 16:29 Future hold 12/08/16 16:42 1 CAN Metoprolol Tartrate (Lopressor Iv) 5 mg Q4H PRN IV 11/28/16 19:45 12/28/16 19:44 Future Hold 11/30/16 08:11 5 MG Enteral Nutritional Formula 1 box 1 box BID PO 12/02/16 21:00 01/01/17 20:59 Future hold 12/09/16 08:07 1 BOX Imipenem/ Cilastatin Sodium/ Dextrose (Primaxin Iv/D5 100ml) 110 ml @ 100 mls/hr Q8H IV 12/04/16 12:00 12/11/16 11:59 12/09/16 12:07 100 MLS/HR Magnesium Hydroxide (Milk Of Magnesia Susp) 30 ml Q6H PRN PO 12/05/16 11:00 01/04/17 10:59 12/08/16 07:58 30 ML Polyethylene (Miralax Powder Packet) 17 gm DAILY PRN PO 12/05/16 11:00 01/04/17 10:59 12/07/16 09:14 17 GM Midazolam HCl (Versed Inj) 2 mg Q4H PRN IV 12/07/16 10:00 01/06/17 09:59 Miscellaneous Information (Consult Glycemic Management Pharmacy) 1 ea UD PRN N/A 12/07/16 10:37 01/06/17 10:36 Alteplase, Recombinant 10 mg 10 mg BID IPL 12/07/16 17:00 12/09/16 21:01 12/08/16 20:34 10 MG Dornase Ronnie 5 ml/ Syringe 30 ml @ 0 mls/hr BID IPL 12/08/16 09:00 12/10/16 09:01 12/08/16 20:36 0 MLS/HR Methylprednisolone Sodium Succinate/ Syringe (Solu-Medrol IV/ Syringe) 0.64 ml @ 1.5 mls/min Q12H IV 12/08/16 14:00 12/11/16 13:59 12/09/16 13:48 1.5 MLS/MIN Docusate Sodium (coLACE SYRUP) 100 mg BID PO 12/08/16 21:00 01/07/17 20:59 Polyethylene (Miralax Powder Packet) 17 gm DAILY PO 12/09/16 09:00 01/08/17 08:59 Docusate Sodium (coLACE CAP) 100 mg BID PRN PO 12/08/16 10:00 01/07/17 09:59 Pantoprazole Sodium (Protonix Tab) 40 mg QAM PO 12/09/16 09:00 01/08/17 08:59 12/09/16 08:02 40 MG Insulin Aspart (novoLOG ASPART) SLIDING SCALE ACHS SC 12/08/16 11:30 01/07/17 11:29 12/09/16 16:00 4 UNITS Prednisone (PredniSONE TAB) 40 mg Taper DAILY PO 12/11/16 09:00 12/19/16 08:59 Acetaminophen/ Hydrocodone Bitart ([place] 5/325 Tab) 1-2 tab for pain 1 tab ... Q4H PRN PO 12/08/16 16:30 12/22/16 16:29 12/09/16 08:01 2 TAB Amiodarone HCl (Cordarone Tab) 400 mg QAM PO 12/09/16 09:00 01/08/17 08:59 12/09/16 08:01 400 MG Levalbuterol (Xopenex 1.25MG/ 0.5ML Neb) 1.25 mg Q6R INH 12/08/16 21:00 01/07/17 20:59 12/09/16 20:04 1.25 MG Digoxin (Lanoxin Tab) 0.125 mg MoWeFr@1600 PO 12/11/16 16:00 01/10/17 15:59 Objective Vital Signs Date Time Temp Pulse Resp B/P Pulse Ox O2 Delivery O2 Flow Rate FiO2 12/09/16 20:09 90 20 95 BiPAP/CPAP 50 12/09/16 20:09 90 95 50 12/09/16 17:37 86 12/09/16 16:00 Nasal Cannula 6.0 12/09/16 15:47 36.7 82 19 109/39 98 Nasal Cannula 6.0 12/09/16 14:20 83 22 94 Nasal Cannula 6.0 12/09/16 14:00 36.9 92 23 98/41 93 Nasal Cannula 6.0 12/09/16 12:00 36.9 88 26 113/47 94 Nasal Cannula 6.0 12/09/16 12:00 Nasal Cannula 6.0 12/09/16 10:00 36.9 89 27 130/45 96 BiPAP 50 12/09/16 08:00 36.9 93 26 114/48 94 Nasal Cannula 6.0 12/09/16 08:00 Nasal Cannula 6.0 12/09/16 07:20 86 28 96 BiPAP/CPAP 50 12/09/16 04:00 96 BiPAP 50 12/09/16 04:00 37.1 85 25 113/42 97 BiPAP 50 12/09/16 02:02 89 98 50 12/09/16 02:01 89 24 98 BiPAP/CPAP 50 12/09/16 00:00 37.0 80 24 122/58 98 BiPAP 50 12/09/16 00:00 98 BiPAP 50 12/08/16 21:52 86 100 50 Physical Exam General Appearance: WD/WN, no apparent distress Eyes: normal inspection, sclerae normal Neck: supple, no carotid bruits, trachea midline Respiratory/Chest: chest non-tender, no respiratory distress, + crackles, + pertinent finding (on BiPAP) Cardiovascular: regular rate, rhythm, no edema, no gallop, no murmur Abdomen: normal bowel sounds, non tender, soft Extremities: non-tender, no pedal edema, no calf tenderness Neurologic/Psychiatric: alert, oriented x 3 Laboratory Results Results Past 24 Hours Test 12/08/16 20:52 12/09/16 05:32 12/09/16 07:48 12/09/16 11:26 Range/Units Bedside Glucose 192 206 70-90 mg/dl White Blood Count 15.43 4.8-10.8 K/uL Red Blood Count 2.57 4.2-5.4 M/uL Hemoglobin 7.8 12.0-16.0 g/dL Hematocrit 25.7 37-47 % Mean Corpuscular Volume 100.0 80-100 fL Mean Corpuscular Hemoglobin 30.4 25-34 pg Mean Corpuscular Hemoglobin Concent 30.4 32-36 g/dl Platelet Count 202 130-400 K/uL Mean Platelet Volume 9.2 7.4-10.4 fL Neutrophils (%) (Auto) 92.6 % Lymphocytes (%) (Auto) 3.8 % Monocytes (%) (Auto) 3.3 % Eosinophils (%) (Auto) 0.0 % Basophils (%) (Auto) 0.1 % Neutrophils # (Auto) 14.29 1.4-6.5 K/uL Lymphocytes # (Auto) 0.59 1.2-3.4 K/uL Monocytes # (Auto) 0.51 0.11-0.59 K/uL Eosinophils # (Auto) 0.00 0-0.5 K/uL Basophils # (Auto) 0.01 0-0.2 K/uL RDW Standard Deviation 49.4 36.4-46.3 fL RDW Coefficient of Variation 13.5 11.5-14.5 % Immature Granulocyte % (Auto) 0.2 % Immature Granulocyte # (Auto) 0.03 0.00-0.02 K/uL Anisocytosis PRESENT Activated Partial Thromboplast Time 22.1 21.0-31.0 SECONDS Partial Thromboplastin Ratio 0.9 Sodium Level 146 136-145 mmol/L Potassium Level 5.2 5.4 3.5-5.1 mmol/L Chloride Level 98 98-107 mmol/L Carbon Dioxide Level 48 21-32 mmol/L Anion Gap 0.0 3-11 mmol/L Blood Urea Nitrogen 64 7-18 mg/dl Creatinine 1.10 0.60-1.20 mg/dl Est Creatinine Clear Calc Drug Dose 42.1 ml/min Estimated GFR () 56.1 Estimated GFR (Non- 48.4 BUN/Creatinine Ratio 57.9 10-20 Random Glucose 166 70-99 mg/dl Calcium Level 8.8 8.5-10.1 mg/dl Test 12/09/16 20:12 Range/Units Bedside Glucose 160 70-90 mg/dl Assessment and Plan Patient is a 76 year old female with a 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 1) Acute on Chronic Hypercarbic Hypoxic Respiratory Failure 2/2 End Stage COPD - Extubated and now tolerating BiPAP - Parapneumonic Effusion - Left sided chest tube - 750ml total drained fluid --> Blood tinged fluid - Remained in ICU to receive TPA and DNAse - planned on 2 more days of treatment - Refused TPA treatment this morning - Pleural Fluids - pH 7.74, LDH 197, Total Protein 1.7, Total Protein 1.7, Albumin 0.9 - Transudative picture - Steroid taper: Methylprednisone 40mg IV BID x 3 days (Currently Day 2), Prednisone 40mg PO x 2 days, 30mg x 2 days, 20mg x 2 days, 10mg x 2 days - Leukocytosis most likely 2/2 steroids - Downgraded to Telemetry - Duoneb q4h, Xopenex 2 puff QID, Atrovent 4 puff q6h, Spiriva 1 puff daily, Brovana 15 mcg INH BID, Pulmicort 0.5m - CXR: Improved aeration of left lower lobe after chest tube placement without evidence of pneumothorax - Imipenem/ Cilastatin q8h IV - ID following - Will require up to 2 week of further antibiotic therapy - Sputum culture positive for H. Influenza and Achromobacter Xylosoxidans 2) Paroxysmal Atrial Fibrillation - Amiodarone 400mg ONCE daily as per cardiology - Dig 0.125mg daily --> Dosing Wednesday as per cardiology d/t current Dig level as well as Amiodarone increasing level of Digoxin increasing risk of toxicity - Stop Heparin 5,000 due to Hemoccult positive stool - No anticoagulation given bleeding 3) Anemia from GI blood loss - Hemoccult Positive - Continue Pantoprazole as per GI recommendations - GI consult - not a good source for endoscopy to investigate GI bleed - Discontinue Heparin - Hgb improved 7.8 today - Follow H/H, consider transfusion with continued drop 4) Acute Kidney Injury - Creatinine of 1.1 today, continuing to improve - Song catheter in place since admission - Strict I/Os 5) Speech Therapy 11/25 Evaluation 1. Moist mechanical soft diet as tolerated 2. STRICT aspiration precautions, straws OK with small single sips. Fully upright for p.o. intake and for 30 minutes after intake. Stringent oral care. Supervision while eating. 3. Small bites, small single sips. Frequent rest breaks and slow rate. No taking while eating. Should the patient have any difficulty tolerating this diet with these strategies, modify diet to pureed. 4. Will follow for tolerance. 6) Constipation - Milk of Magnesia - Miralax - Senna 7) Code Status - DNR Reviewed: Pt Seen/Exam by Me History Resident Physician Supervision Note: I have seen and examined the patient and discussed the case in depth with Dr Wilson. I discussed the case with the resident and agree with the findings and plan as documented in the note. Any exceptions or clarifications are listed here: Has been off BiPAP all day but now complaining of fatigue and wants to the mask back on. Has been having multiple loose bowel movements today. Vital signs reviewed, currently in normal sinus rhythm Mild distress, alert and awake Regular rate and rhythm, no murmurs gallops or rubs Diffuse rhonchi and crackles at the bases Abdomen soft positive bowel sounds nontender nondistended Extremities 1+ pitting edema left greater than right to the knees bilaterally Skin multiple ecchymoses on the extremities This patient is a 76-year-old female with acute on chronic hypercarbic and hypoxemic respiratory failure requiring intubation twice this admission, severe COPD, now with suspected parapneumonic effusion however pleural fluid is transudative, with suspected loculation now status post chest tube placement and instillation of DNase and alteplase. Also with paroxysmal atrial fibrillation and worsening anemia from gastrointestinal bleeding. Prognosis for being able to remain off noninvasive ventilatory support is guarded at this time.-This has been discussed with the family -Appreciate addiction professional management for parapneumonic effusion and chest tube placement-continue Primaxin and follow chest x-rays, CBC to follow leukocytosis back to normal, patient refusing any further instillation of TPA and DNase through her chest tube.-Likely did discontinue chest tube tomorrow. -A. fib is now converted to normal sinus rhythm, cardiology is following, no anticoagulation due to heme positive stool and current anemia, on digoxin and amiodarone for rate and rhythm control continue amiodarone to 400 mg by mouth once daily and change digoxin only on Wednesday as per cardiology recommendations -Continue BiPAP as needed which for now as most of the time-referral to LTAC has been made -Hemoccult stool is positive, hemoglobin low but stable in the sevens-follow CBC in the morning and transfuse as needed to keep hemoglobin greater than 7 Documented By: Kristal Blevins
[2016-12-09] MEDS: MONTELUKAST SOD 10 MG TAB PO SCH (21:53)
[2016-12-10] VITALS (26 sets, daily range): BP systolic 67–135; BP diastolic 36–74; PULSE 92–163; TEMP 36.5–37.6; O2SAT 72–99
[2016-12-10] MEDS: LEVALBUTEROL 1.25MG/0.5ML NEB INH SCH ×4 (01:53→19:22)
[2016-12-10] MEDS: METHYLPREDNISOLONE IV 40 MG in SYRINGE 0 ML IV SCH ×2 (02:09→14:11)
[2016-12-10] MEDS: IMIPENEM/CILASTATIN IV 500 MG in DEXTROSE 5% 100ML 100 ML IV SCH ×3 (04:16→19:59)
[2016-12-10 06:24] LABS: HEMATOCRIT 27.7 % (37-47); MEAN CELL VOLUME 101.1 fL (80-100); MEAN CORPUSCULAR HEMOGLOBIN 29.9 pg (25-34); MEAN CORPUSCULAR HGB CONC 29.6 g/dl (32-36); MEAN PLATELET VOLUME 9.3 fL (7.4-10.4); PLATELET COUNT 230 K/uL (130-400); RED BLOOD COUNT 2.74 M/uL (4.2-5.4); WHITE BLOOD COUNT 21.44 K/uL (4.8-10.8)
[2016-12-10 07:10] LABS: BASO ABS # 0.01 K/uL (0-0.2); COMPLETE YES; HYPOCHROMIA PRESENT; IG% 0.3 %; LYMPH % 4.6 %; LYMPH ABS # 0.99 K/uL (1.2-3.4); MONO % 1.4 %; NEUT % 93.7 %; STOMATOCYTE 1+
[2016-12-10] MEDS: BOOST VANILLA PO SCH ×4 (07:15→16:45)
[2016-12-10] MEDS: INSULIN ASPART 100 UNITS/ML 3 ML PEN SC SCH ×3 (07:27→20:44)
[2016-12-10] MEDS: BOOST BREEZE NUTRITION DRINK 1 BOX PO SCH ×2 (07:27→21:00)
[2016-12-10] MEDS: POLYETHYLENE (MIRALAX) 17 GM PACK PO SCH (07:28)
[2016-12-10] MEDS: DOCUSATE SODIUM 100 MG/10 ML UDC PO SCH ×2 (07:28→21:00)
[2016-12-10] MEDS: SENNA 8.6 MG TAB PO SCH (07:28)
[2016-12-10] MEDS: DORNASE ALFA 2.5MG 5 ML in SYRINGE 25 ML IPL SCH (07:29)
[2016-12-10] MEDS: ALTEPLASE, RECOMBINANT 1 MG/ML 2 ML VIAL IPL SCH (07:29)
[2016-12-10 07:33] LABS: BUN/CREATININE RATIO 57.5 (10-20); CALCIUM 9.1 mg/dl (8.5-10.1); CREATININE 1.1 mg/dl (0.60-1.20); POTASSIUM 5.3 mmol/L (3.5-5.1)
[2016-12-10] MEDS: PANTOprazole SOD 40 MG TAB PO SCH ×2 (07:37→08:01)
[2016-12-10] MEDS: ROFLUMILAST 500 MCG TAB PO SCH (07:37)
[2016-12-10] MEDS: ATORVASTATIN 40 MG TAB PO SCH (07:38)
[2016-12-10] MEDS: ASPIRIN 81 MG CHEW PO SCH (07:38)
[2016-12-10] MEDS: AMIODARONE 200 MG TAB PO SCH (07:38)
--- NOTE | 2016-12-10 07:44 | PROGRESS NOTE ---
DATE: 12/10/2016 The patient is on BiPAP this morning, continues to be tachypneic with respiratory rate of 24, heart rate is 104, and she is afebrile. She just states she is short of breath this morning. According to nurses' notes, she had a fairly stable night, finally agreed to be put back on BiPAP. She has difficulty with sleeping. She denies any chest pain or shortness of breath. Has had some hypoxemia with oxygen desaturation down into the mid 80s on 6 liters. She has a bit of pain when there is heparin placed into the chest tube. She seemed to have a fairly good day yesterday. PHYSICAL EXAMINATION: VITAL SIGNS: Otherwise are stable. Oxygen saturation is 99% on 50% FiO2 with BiPAP. Blood pressure 134/48. She did have a bit of a leak with expiration in the BiPAP and I adjusted her mask and that resolved. She is sitting upright and comfortable. States she wants to try to get out of bed today. I\T\O's, 815 in and 1035 out. Weight 73.7 kilograms which is probably stable, although down from 76 kilograms on 12/05/2016. MEDICATIONS: Reviewed. PHYSICAL EXAMINATION: NECK: There is no neck vein distention or HJR. HEART: Regular rate and rhythm. I do not detect any murmurs. LUNGS: With decreased breath sounds bilaterally, few crackles at the left base posterior. No subcutaneous emphysema is noted. ABDOMEN: Soft, nontender. EXTREMITIES: She has +1 edema in the dorsum of her feet. LABORATORY DATA: White count is elevated at 21.4, hemoglobin 8.2 with macrocytic indices, platelet count 230,000. PRP is pending. CO2 is elevated at 48 yesterday. Pleural fluid is consistent with a transudate with total protein of only 1.7 grams and LDH of 197. MRSA DNA surveillance screen is negative. Blood cultures were unremarkable. IMPRESSION: 1. Respiratory failure. 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 2. Pneumonia. 3. Hypertension. 4. History of atrial fibrillation. RECOMMENDATIONS: 1. Chest x-ray. 2. Continue on BiPAP. Await the results of the PRP. 3. Consider removing the left chest tube. She only has about 250 mL out of the tube on an average, it appears to be a transudate. Hopefully, when that is removed, she will not have any further pain. Overall, she should be maintained in the Intensive Care Unit. LUIS
[2016-12-10] MEDS ORDERED: FENTANYL CITRATE INJ 50 MCG/1 ML 2 ML VIAL ONE (12:00)
[2016-12-10] MEDS ORDERED: FENTANYL CITRATE INJ 50 MCG/1 ML 2 ML VIAL IV ONE (12:00)
[2016-12-10] MEDS ORDERED: LORAZEPAM 2 MG/ML 1 ML VIAL IV PRN (12:15)
--- NOTE | 2016-12-10 12:45 | DIAGNOSTIC IMAGING REPORT ---
SINGLE VIEW CHEST CLINICAL HISTORY: Follow-up pneumonia. FINDINGS: An AP, portable, upright chest radiograph is compared to study dated 12/09/2016 and correlated with chest CT dated 06/10/2012. The examination is significantly degraded by portable technique and patient rotation. A right PICC line is unchanged in position. The heart is normal for projection and there is atherosclerotic calcification of the thoracic aorta. Emphysema and chronic interstitial thickening are similar to previous. A pleural drain is again seen at the left lung base. There are small pleural effusions, left larger than right with bibasilar airspace consolidation. A calcified granuloma is noted at the right apex. No pneumothorax is seen. The skeletal structures are osteopenic. The bony thorax is grossly intact. IMPRESSION: 1. No significant change from yesterday. 2. A pleural drain at the left lung base is unchanged in position. 3. Small pleural effusions, left larger than right with bibasilar consolidation persist. 4. Emphysema. Electronically signed by: Darci Hobbs M.D. 12/10/2016 12:43 PM Dictated Date/Time: 12/10/2016 12:42 PM
[2016-12-10] MEDS ORDERED: NURSING VERBAL MED ORDER ONE (14:30)
[2016-12-10] MEDS ORDERED: FENTANYL CITRATE INJ 50 MCG/1 ML 2 ML VIAL IV STA (14:34)
--- NOTE | 2016-12-10 17:58 | DIAGNOSTIC IMAGING REPORT ---
CHEST ONE VIEW PORTABLE CLINICAL HISTORY: Chest tube removal. COMPARISON STUDY: Chest radiograph December 10, 2016 at 12:42 PM. FINDINGS: A right PICC remains in place. The left chest tube has been removed. No pneumothorax is identified. Left lower lobe aeration has significantly diminished with volume loss. A left pleural effusion is noted. Right basilar opacity favors atelectasis. There is suspected underlying emphysema. Leftward shift of mediastinal structures is noted. IMPRESSION: 1. No pneumothorax following left chest tube removal. 2. Significant increase in left lower lung opacity with volume loss. This favors left lower lobe collapse. Associated left pleural effusion. Electronically signed by: Cristobal Farah M.D. 12/10/2016 5:56 PM Dictated Date/Time: 12/10/2016 5:36 PM
[2016-12-10] MEDS: MoRPHine SULFATE 2 MG/ML CARP IV PRN (19:55)
[2016-12-10] MEDS: MONTELUKAST SOD 10 MG TAB PO SCH (21:00)
--- NOTE | 2016-12-10 21:44 | Family Medicine Progress Note ---
Progress Note Date of Service Dec 10, 2016. Subjective Pt evaluation today including: conversation w/ patient, conversation w/ family , physical exam, chart review, lab review, review of studies Pain: Patient is complaining of left sided chest pain this morning Voiding: ferguson catheter in place Patient was resting comfortably in bed this morning in no acute distress. Had no acute complaints overnight but later in the morning I was called to bedside after the patients sats dropped after being on 6L while eating and take off of BiPAP. The patient became more agitated at the time and was also complaining of left sided pain from the chest tube. We placed the patient back on BiPAP and her oxygenation improved. We also reiterated with her brother and that the patients wishes are DNR/DNI. Also due to her wishes not to have any other therapies through the chest tube we pulled it in the afternoon. Constitutional: No chills, No fever Respiratory: + shortness of breath, No cough Cardiovascular: + chest pain Abdomen: No nausea, No pain, No vomiting Medications Current Inpatient Medications Medications (Trade) Dose Ordered Sig/Omkar Route Start Time Stop Time Status Last Admin Dose Admin Acetaminophen (Tylenol Tab) 650 mg Q4H PRN PO 11/21/16 15:45 12/21/16 15:44 12/08/16 12:57 650 MG Atorvastatin Calcium (Lipitor Tab) 40 mg DAILY PO 11/22/16 09:00 12/22/16 08:59 12/10/16 07:38 40 MG Montelukast Sodium (Singulair Tab) 10 mg QPM PO 11/21/16 21:00 12/21/16 20:59 12/09/16 21:53 10 MG Propranolol HCl (Inderal Tab) 80 mg BID PO 11/21/16 21:00 12/21/16 20:59 Future Hold 12/06/16 07:57 80 MG Roflumilast (Daliresp Tab) 500 mcg DAILY PO 11/22/16 09:00 12/22/16 08:59 12/10/16 07:37 500 MCG Senna (Senokot Tab) 8.6 mg QAM PO 11/22/16 09:00 12/22/16 08:59 12/08/16 10:35 8.6 MG Aspirin (Aspirin Chew) 81 mg DAILY PO 11/23/16 09:00 12/23/16 08:59 12/09/16 07:58 81 MG Heparin Sodium (Porcine) (Heparin 10 Unit/ ml 5 ml Flush) 5 ml PRN PRN FLUSH 11/25/16 04:15 12/25/16 04:14 12/10/16 14:11 5 ML Ondansetron HCl (Zofran Tab) 4 mg Q4H PRN PO 11/26/16 00:30 12/26/16 00:29 11/26/16 03:06 4 MG Lisinopril (Zestril Tab) 5 mg DAILY PO 11/27/16 09:00 12/27/16 08:59 Future Hold 11/27/16 10:01 5 MG Triamterene/HCTZ (Dyazide 37.5/25 Mg Cap) 1 cap DAILY PO 11/27/16 09:00 12/27/16 08:59 Future Hold 11/27/16 10:02 1 CAP Enteral Nutritional Formula (Boost) 1 can BIDM PO 11/26/16 16:30 12/26/16 16:29 Future hold 12/08/16 16:42 1 CAN Metoprolol Tartrate (Lopressor Iv) 5 mg Q4H PRN IV 11/28/16 19:45 12/28/16 19:44 Future Hold 11/30/16 08:11 5 MG Enteral Nutritional Formula 1 box 1 box BID PO 12/02/16 21:00 01/01/17 20:59 Future hold 12/09/16 21:53 1 BOX Imipenem/ Cilastatin Sodium/ Dextrose (Primaxin Iv/D5 100ml) 110 ml @ 100 mls/hr Q8H IV 12/04/16 12:00 12/25/16 11:59 12/10/16 19:59 100 MLS/HR Magnesium Hydroxide (Milk Of Magnesia Susp) 30 ml Q6H PRN PO 12/05/16 11:00 01/04/17 10:59 12/08/16 07:58 30 ML Polyethylene (Miralax Powder Packet) 17 gm DAILY PRN PO 12/05/16 11:00 01/04/17 10:59 12/07/16 09:14 17 GM Midazolam HCl (Versed Inj) 2 mg Q4H PRN IV 12/07/16 10:00 01/06/17 09:59 Miscellaneous Information 1 ea 1 ea UD PRN N/A 12/07/16 10:37 01/06/17 10:36 Methylprednisolone Sodium Succinate/ Syringe (Solu-Medrol IV/ Syringe) 0.64 ml @ 1.5 mls/min Q12H IV 12/08/16 14:00 12/11/16 13:59 12/10/16 14:11 1.5 MLS/MIN Docusate Sodium (coLACE SYRUP) 100 mg BID PO 12/08/16 21:00 01/07/17 20:59 Polyethylene (Miralax Powder Packet) 17 gm DAILY PO 12/09/16 09:00 01/08/17 08:59 Docusate Sodium (coLACE CAP) 100 mg BID PRN PO 12/08/16 10:00 01/07/17 09:59 Pantoprazole Sodium (Protonix Tab) 40 mg QAM PO 12/09/16 09:00 01/08/17 08:59 12/09/16 08:02 40 MG Insulin Aspart (novoLOG ASPART) SLIDING SCALE ACHS SC 12/08/16 11:30 01/07/17 11:29 12/09/16 16:00 4 UNITS Prednisone (PredniSONE TAB) 40 mg Taper DAILY PO 12/11/16 09:00 12/19/16 08:59 Acetaminophen/ Hydrocodone Bitart ([place] 5/325 Tab) 1-2 tab for pain 1 tab ... Q4H PRN PO 12/08/16 16:30 12/22/16 16:29 12/09/16 08:01 2 TAB Amiodarone HCl (Cordarone Tab) 400 mg QAM PO 12/09/16 09:00 01/08/17 08:59 12/10/16 07:38 400 MG Levalbuterol (Xopenex 1.25MG/ 0.5ML Neb) 1.25 mg Q6R INH 12/08/16 21:00 01/07/17 20:59 12/10/16 19:22 1.25 MG Digoxin (Lanoxin Tab) 0.125 mg MoWeFr@1600 PO 12/11/16 16:00 01/10/17 15:59 Lorazepam (Ativan Inj) 1 mg Q4H PRN IV 12/10/16 12:15 01/09/17 12:14 Morphine Sulfate (MoRPHine SULFATE INJ) 2 mg Q2H PRN IV 12/10/16 12:15 12/24/16 12:14 12/10/16 19:55 2 MG Objective Vital Signs Date Time Temp Pulse Resp B/P Pulse Ox O2 Delivery O2 Flow Rate FiO2 12/10/16 19:53 37.6 110 23 100/39 91 Mask 10.0 12/10/16 19:46 109 90 50 12/10/16 19:30 114 34 90 Diffusion Mask 10.0 12/10/16 16:00 Mask 12.0 12/10/16 15:53 36.5 100 23 112/39 93 Mask 12.0 12/10/16 14:35 105 98 50 12/10/16 14:00 119 22 134/58 96 BiPAP 100 12/10/16 13:00 109 28 98 BiPAP 100 12/10/16 12:00 118 30 115/48 94 BiPAP 100 12/10/16 12:00 BiPAP 100 12/10/16 11:00 117 30 95 BiPAP 100 12/10/16 08:00 BiPAP 50 12/10/16 08:00 36.7 110 26 117/42 90 BiPAP 50 12/10/16 07:10 110 30 90 BiPAP/CPAP 50 12/10/16 07:10 110 94 50 12/10/16 04:00 99 BiPAP 50 12/10/16 04:00 36.8 95 25 134/48 94 BiPAP 50 12/10/16 01:53 92 22 94 BiPAP/CPAP 50 12/10/16 01:53 92 94 50 12/09/16 23:59 99 BiPAP 50 12/09/16 23:59 36.7 92 24 118/45 96 BiPAP 50 Physical Exam General Appearance: WD/WN, + mild distress Eyes: normal inspection, sclerae normal Respiratory/Chest: chest non-tender, + respiratory distress, + accessory muscle use, + pertinent finding (Coarse breath sounds in lower lung regions) Cardiovascular: regular rate, rhythm, no edema, no gallop Abdomen: normal bowel sounds, non tender, soft Extremities: normal range of motion, non-tender, no calf tenderness, + swelling Neurologic/Psychiatric: alert Laboratory Results Results Past 24 Hours Test 12/10/16 06:15 12/10/16 06:58 12/10/16 12:54 12/10/16 16:16 Range/Units White Blood Count 21.44 4.8-10.8 K/uL Red Blood Count 2.74 4.2-5.4 M/uL Hemoglobin 8.2 12.0-16.0 g/dL Hematocrit 27.7 37-47 % Mean Corpuscular Volume 101.1 80-100 fL Mean Corpuscular Hemoglobin 29.9 25-34 pg Mean Corpuscular Hemoglobin Concent 29.6 32-36 g/dl Platelet Count 230 130-400 K/uL Mean Platelet Volume 9.3 7.4-10.4 fL Neutrophils (%) (Auto) 93.7 % Lymphocytes (%) (Auto) 4.6 % Monocytes (%) (Auto) 1.4 % Eosinophils (%) (Auto) 0.0 % Basophils (%) (Auto) 0.0 % Neutrophils # (Auto) 20.08 1.4-6.5 K/uL Lymphocytes # (Auto) 0.99 1.2-3.4 K/uL Monocytes # (Auto) 0.29 0.11-0.59 K/uL Eosinophils # (Auto) 0.01 0-0.5 K/uL Basophils # (Auto) 0.01 0-0.2 K/uL RDW Standard Deviation 50.5 36.4-46.3 fL RDW Coefficient of Variation 13.7 11.5-14.5 % Immature Granulocyte % (Auto) 0.3 % Immature Granulocyte # (Auto) 0.06 0.00-0.02 K/uL Hypochromasia PRESENT Basophilic Stippling 1+ Stomatocytes 1+ Sodium Level 146 136-145 mmol/L Potassium Level 5.3 3.5-5.1 mmol/L Chloride Level 98 98-107 mmol/L Carbon Dioxide Level 49 21-32 mmol/L Anion Gap -1.0 3-11 mmol/L Blood Urea Nitrogen 63 7-18 mg/dl Creatinine 1.10 0.60-1.20 mg/dl Est Creatinine Clear Calc Drug Dose 42.1 ml/min Estimated GFR () 56.1 Estimated GFR (Non- 48.4 BUN/Creatinine Ratio 57.5 10-20 Random Glucose 160 70-99 mg/dl Calcium Level 9.1 8.5-10.1 mg/dl Digoxin Level 1.4 0.8-2.0 ng/ml Bedside Glucose 151 145 131 70-90 mg/dl Test 12/10/16 20:34 Range/Units Bedside Glucose 168 70-90 mg/dl Assessment and Plan Patient is a 76 year old female with a 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 1) Acute on Chronic Hypercarbic Hypoxic Respiratory Failure 2/2 End Stage COPD - Extubated and now tolerating BiPAP - Parapneumonic Effusion - DNR/DNI - Removed left sided chest tube this afternoon - Morphine and Ativan for acute distress 2/2 pain and shortness of breath - Transferred out of the ICU after patient refused further chest tube treatment includign TPA and DNAse - Pleural Fluids - pH 7.74, LDH 197, Total Protein 1.7, Total Protein 1.7, Albumin 0.9 - Transudative picture - Steroid taper: Methylprednisone 40mg IV BID x 3 day, Prednisone 40mg PO x 2 days, 30mg x 2 days, 20mg x 2 days, 10mg x 2 days - Currently on oral prednisone day 1 - Leukocytosis most likely 2/2 steroids - Duoneb q4h, Xopenex 2 puff QID, Atrovent 4 puff q6h, Spiriva 1 puff daily, Brovana 15 mcg INH BID, Pulmicort 0.5m - CXR: Improved aeration of left lower lobe after chest tube placement without evidence of pneumothorax - Imipenem/ Cilastatin q8h IV - ID following - Will require up to 2 week of further antibiotic therapy - Sputum culture positive for H. Influenza and Achromobacter Xylosoxidans 2) Paroxysmal Atrial Fibrillation - Amiodarone 400mg ONCE daily as per cardiology - Dig 0.125mg daily --> Dosing Wednesday as per cardiology d/t current Dig level as well as Amiodarone increasing level of Digoxin increasing risk of toxicity - Stop Heparin 5,000 due to Hemoccult positive stool - No anticoagulation given bleeding 3) Anemia from GI blood loss - Hemoccult Positive - Continue Pantoprazole as per GI recommendations - GI consult - not a good source for endoscopy to investigate GI bleed - Discontinue Heparin - Hgb continues to improve - 8.2 - Follow H/H, consider transfusion with continued drop 4) Acute Kidney Injury - Stable - Creatinine of 1.1 today - Ferguson catheter in place since admission - Strict I/Os 5) Speech Therapy 11/25 Evaluation 1. Moist mechanical soft diet as tolerated 2. STRICT aspiration precautions, straws OK with small single sips. Fully upright for p.o. intake and for 30 minutes after intake. Stringent oral care. Supervision while eating. 3. Small bites, small single sips. Frequent rest breaks and slow rate. No taking while eating. Should the patient have any difficulty tolerating this diet with these strategies, modify diet to pureed. 4. Will follow for tolerance. 6) Constipation - Milk of Magnesia - Miralax - Senna 7) Code Status - DNR/ DNI Reviewed: Pt Seen/Exam by Me History Resident Physician Supervision Note: I have seen and examined the patient and discussed the case in depth with Dr Wilson. I discussed the case with the resident and agree with the findings and plan as documented in the note. Any exceptions or clarifications are listed here: Patient had significant hypoxia all trying to be on nasal cannula to eat food today and had to be placed back on BiPAP and it took a little bit of time to get her oxygen saturations back up. When I saw her, she was on BiPAP and clearly told me that she does not want to be intubated if her respiratory status continues to decline. She also would like to have the chest tube removed it is still causing her significant pain and she does not desire any further treatment through the tube or by way of the tube draining fluid to treat her empyema. She is also agreeable to taking Ativan and morphine for pain and anxiety. Vital signs reviewed, currently in normal sinus rhythm Mild distress, alert and awake Regular rate and rhythm, no murmurs gallops or rubs Diffuse rhonchi and crackles at the bases, chest tube in place in the left posterior lung field Abdomen soft positive bowel sounds nontender nondistended Extremities 1+ pitting edema left greater than right to the knees bilaterally Skin multiple ecchymoses on the extremities This patient is a 76-year-old female with acute on chronic hypercarbic and hypoxemic respiratory failure requiring intubation twice this admission, severe COPD, now with suspected parapneumonic effusion however pleural fluid is transudative, with suspected loculation now status post chest tube placement and instillation of DNase and alteplase which was stopped early due to severe pain as per patient's wishes. Also with paroxysmal atrial fibrillation and worsening anemia from occult gastrointestinal bleeding. Prognosis for being able to remain off noninvasive ventilatory support is guarded at this time.-This has been discussed with the family -Appreciate it technical support specialist management for parapneumonic effusion and chest tube placement-continue Primaxin and follow chest x-rays, will remove chest tube today and confirmed no pneumothorax on chest x-ray. CBC to follow leukocytosis back to normal, patient refusing any further instillation of TPA and DNase through her chest tube. -A. fib is now converted to normal sinus rhythm, cardiology is following, no anticoagulation due to heme positive stool and current anemia, on digoxin and amiodarone for rate and rhythm control continue amiodarone to 400 mg by mouth once daily and change digoxin only on Wednesday as per cardiology recommendations -Continue BiPAP as needed which for now as most of the time-referral to LTAC has been made -Hemoccult stool is positive, hemoglobin low but stable in the sevens-follow CBC in the morning and transfuse as needed to keep hemoglobin greater than 7 -Prognosis quite guarded DO NOT RESUSCITATE/DO NOT INTUBATE Documented By: Kristal Blevins
--- NOTE | 2016-12-10 22:24 | Progress Note ---
Progress Note Date of Service Dec 10, 2016. Progress Note S: Would like to have chest tube removed O: Vital signs reviewed, minimal chest tube output in last 24 hours A: Left pleural effusion status post tube thoracostomy - End-stage COPD P: Patient does not desire intrapleural fibrinolytics Minimal chest tube output Discontinued today, occlusive Vaseline dressing applied Chest x-ray obtained 3 hours after discontinuation, no pneumothorax
[2016-12-10] MEDS ORDERED: METOPROLOL TARTRATE 1 MG/ML VIAL IV STA (22:25)
[2016-12-10] MEDS ORDERED: SODIUM CHLORIDE 0.9% 250ML 250 ML IV ONE (22:30)
[2016-12-10] MEDS ORDERED: METOPROLOL TARTRATE 1 MG/ML VIAL ONE (22:40)
[2016-12-10] MEDS ORDERED: DILTIAZEM BOLUS / DRIP IV STA (23:20)
[2016-12-10] MEDS ORDERED: DILTIAZEM HCL INJ 125 MG in DEXTROSE 5% 100ML IV PRN (23:30)
[2016-12-11] VITALS (30 sets, daily range): BP systolic 60–126; BP diastolic 29–59; PULSE 92–154; TEMP 36.4–37; O2SAT 64–94
[2016-12-11] MEDS: MoRPHine SULFATE 2 MG/ML CARP IV PRN (01:12)
[2016-12-11] MEDS: LEVALBUTEROL 1.25MG/0.5ML NEB INH SCH (01:42)
[2016-12-11] MEDS ORDERED: LORAZEPAM 2 MG/ML 1 ML VIAL IV STA (02:00)
[2016-12-11] MEDS: METHYLPREDNISOLONE IV 40 MG in SYRINGE 0 ML IV SCH (02:55)
[2016-12-11] MEDS: IMIPENEM/CILASTATIN IV 500 MG in DEXTROSE 5% 100ML 100 ML IV SCH (04:19)
[2016-12-11 06:17] LABS: HEMATOCRIT 27.4 % (37-47); MEAN CELL VOLUME 104.6 fL (80-100); MEAN CORPUSCULAR HEMOGLOBIN 30.9 pg (25-34); MEAN CORPUSCULAR HGB CONC 29.6 g/dl (32-36); MEAN PLATELET VOLUME 9.6 fL (7.4-10.4); PLATELET COUNT 252 K/uL (130-400); RED BLOOD COUNT 2.62 M/uL (4.2-5.4); WHITE BLOOD COUNT 31.07 K/uL (4.8-10.8)
[2016-12-11 06:52] LABS: BASO % 0.1 %; BASO ABS # 0.02 K/uL (0-0.2); COMPLETE YES; HYPOCHROMIA PRESENT; IG% 0.5 %; LYMPH % 6.7 %; LYMPH ABS # 2.09 K/uL (1.2-3.4); MONO % 1.4 %; NEUT % 91.3 %
[2016-12-11] MEDS ORDERED: SODIUM CHLORIDE 0.9% 1000ML 1,000 ML IV SCH (07:15)
[2016-12-11 07:16] LABS: BUN/CREATININE RATIO 51.6 (10-20); CALCIUM 9.1 mg/dl (8.5-10.1); CREATININE 1.3 mg/dl (0.60-1.20); POTASSIUM 5.1 mmol/L (3.5-5.1)
[2016-12-11] MEDS: BOOST VANILLA PO SCH ×2 (07:30)
--- NOTE | 2016-12-11 07:53 | PULMONARY CONSULTATION ---
DATE OF CONSULTATION: 12/11/2016 HISTORY OF PRESENT ILLNESS: The patient continues to do very poorly and remains tachypneic with a respiratory rate of 30. She has had some hypoxemia with 50% FiO2 and oxygen saturation 79% at 4:30 this morning. Blood pressure remains stable. She continues to complain of some shortness of breath. There is no evidence of cough. Urinary output has been poor as well. Left chest tube has been removed. MEDICATIONS: Reviewed. PHYSICAL EXAMINATION: VITAL SIGNS: She is on BiPAP 12/6 and is afebrile. I\T\O is 815 in and 1035 out on the ; 429 in and 800 out on the . Weight was 73.7 kilograms on the . NECK: There is no neck vein distention or HJR. HEART: Regular rate and rhythm, 1/6 systolic murmur at the apex. LUNGS: Revealed markedly decreased breath sounds bilaterally, otherwise are clear. ABDOMEN: Soft, nontender. No organomegaly noted. EXTREMITIES: She has no cyanosis or clubbing. IMAGING DATA: Chest x-ray on the revealed a left lower lobe volume loss consistent with atelectasis. LABORATORY DATA: White count is elevated at 31,000, hemoglobin 8.1, hematocrit 27.4% with macrocytic indices, platelet count 252,000. Differential is pending. PRP is pending. CO2 was 49 on the electrolytes yesterday. MRSA DNA surveillance screen was negative. IMPRESSION: 1. Respiratory failure. I believe with the tachypnea, this has worsened. It is associated with left lower lobe atelectasis and end-stage chronic obstructive pulmonary disease. 2. Left pleural effusion, transudative, chest tube has been removed. 3. Pneumonia. 4. Renal insufficiency. RECOMMENDATIONS: 1. Increase BIPAP to 16/6 with a rate of 14. That should be done immediately. 2. Keep the head of the bed elevated to keep the patient on her right side as much as possible because of left lower lobe atelectasis at least partially on the right side. 3. Continue with her present antimicrobial agents, Lanoxin; decrease her prednisone to 30 mg daily. Need to follow her blood pressure on the amiodarone and diltiazem. Appears in the record, she may be on prednisone and methylprednisolone. I think either prednisone or the Solu-Medrol could be discontinued since we do not need both of those. Since she has had such tachypnea, it may be judicious just to keep her on methylprednisolone 40 mg IV q. 12 hours and hold the prednisone. I believe her prognosis is quite poor because of end-stage lung disease.
[2016-12-11] MEDS ORDERED: MoRPHine SULFATE 4 MG/ML 1 ML CARP\\VIAL IV PRN (08:40)
[2016-12-11] MEDS: BOOST BREEZE NUTRITION DRINK 1 BOX PO SCH (09:00)
[2016-12-11] MEDS: DOCUSATE SODIUM 100 MG/10 ML UDC PO SCH (09:00)
[2016-12-11] MEDS ORDERED: LORAZEPAM INJ 1 MG in SYRINGE 0.5 ML IV PRN (09:00)
[2016-12-11] MEDS ORDERED: LORAZEPAM 2 MG/ML 1 ML VIAL IV PRN (09:15)
--- NOTE | 2016-12-11 09:26 | Family Medicine Progress Note ---
Progress Note Date of Service Dec 11, 2016. Objective Vital Signs Laboratory Results Results Past 24 Hours
--- NOTE | 2016-12-11 09:43 | Death Pronouncement Note ---
Pronouncement Note Date & Time of Dec 11, 2016. 0931 Pronouncement I was called to the bedside by the resident Dr. Sanchez for respiratory arrest and asystole on monitor. Her BiPAP was alarming as she was hypoxic in the 70s despite being on BiPAP but was not spontaneously breathing. Respiratory therapy came in and found her apneic. Dr. Sanchez came in and she was then in asystole with weak carotid pulse. I came a few minutes later and she was not breathing, no palpable pulse, no audible heart tones, At time of pronouncement the patient s pupils were fixed and dilated, there was no spontaneous respiratory effort, no palpable pulse, no audible heart tones, and no response to pain or voice.
[2016-12-11] MEDS ORDERED: DIGOXIN 0.125 MG TAB PO SCH (16:00)
--- NOTE | 2016-12-11 18:12 | Death Summary ---
Summary of Admission Date Nov 21, 2016 at 15:48 (Sea Wilson MD) Date & Time of Dec 11, 2016. 0931 (Sea Wilson MD) Cause of Acute on Chronic Hypercarbic Hypoxic COPD Exacerbation (Sea Wilson MD) Secondary Diagnoses Atrial Fibrillation Anemia 2/2 GI Blood Loss Acute Kidney Injury (Sea Wilson MD) Hospital Course Patient is a 76 year old female with a history of End Stage COPD on 4L of oxygen at home that presented with worsening shortness of breath to the ED and was subsequently intubated during her admission on 2 separate occasions. She subsequently developed a parapneumonic effusion and had a chest tube placed in the ICU. The tube drained a transudative fluid and she was started continued on IV antibiotics. During her time in the ICU she remained on BiPAP being unable to be on a NRB or NC due to desaturations. She was receiving treatment of DNAse and TPA through her chest tube but understandably refused further treatment due to the pain she was experiencing. She was subsequently extubated and moved to Telemetry. Overnight Belinda went into atrial fibrillation and was started on metoprolol eventually requiring a cardizem drip and falling back into normal sinus rhythm around 4am. She also became hypotensive and received a fluid bolus and was placed this morning of IV maintenance fluids. She also was having increased work of breathing, agitation, and worsening oxygen saturation so was given an Ativan dose of 0.5mg IV as well as increasing her FiO2 to 100%. We had a meeting with her this morning regarding her worsening status and difficulties overnight and it was decided to put Belinda on comfort measures. We increased her Morphine and Ativan to improve her comfort and for the time being left her on BiPAP while still comfortable. She continued to decline and after being alerted by her BiPAP machine that she was no longer making spontaneous breaths, she became asystolic. She no longer had a pulse, spontaneous breaths, heart sounds, breath sounds, or palpable carotid pulse and was pronounced at 0931. 1) Comfort Care - Discussion with at bedside today, declining status overnight along with poor prognosis, agrees with comfort measures - Discontinued all medications that do not promote comfort - Increased morphine to 4mg IV PRN for pain or shortness of breath - Increased Ativan to 1mg q1h IV PRN for anxiety, pain, or agitation 2) Acute on Chronic Hypercarbic Hypoxic Respiratory Failure 2/2 End Stage COPD - BiPAP currently with FiO2 of 100% - wanted to keep on BiPAP but if she takes it off again due to discomfort we will not replace it - Parapneumonic Effusion - DNR/DNI - Morphine and Ativan for acute distress 2/2 pain and shortness of breath - Transferred out of the ICU after patient refused further chest tube treatment including TPA and DNAse, chest tube subsequently removed - Pleural Fluids - pH 7.74, LDH 197, Total Protein 1.7, Total Protein 1.7, Albumin 0.9 - Transudative picture - Steroid taper: Methylprednisone 40mg IV BID x 3 day, Prednisone 40mg PO x 2 days, 30mg x 2 days, 20mg x 2 days, 10mg x 2 days - Steroids discontinued due to comfort measures - Leukocytosis most likely 2/2 steroids --> WBC of 31.07 this morning - Duoneb q4h, Xopenex 2 puff QID, Atrovent 4 puff q6h, Spiriva 1 puff daily, Brovana 15 mcg INH BID, Pulmicort 0.5m --> Discontinued medications except for Xopenex due to comfort measures - CXR: Significant left lower lobe opacity favoring lung collapse - Imipenem/ Cilastatin q8h IV - Antibiotics discontinued due to comfort measures - Sputum culture positive for H. Influenza and Achromobacter Xylosoxidans 2) Paroxysmal Atrial Fibrillation - Placed on Diltiazem drip overnight for returning into Atrial Fibrillation with hypotension - Amiodarone 400mg ONCE daily as per cardiology - Dig 0.125mg daily --> Dosing Wednesday as per cardiology d/t current Dig level as well as Amiodarone increasing level of Digoxin increasing risk of toxicity - Medications for Atrial Fibrillation discontinued due to comfort care measures - Stop Heparin 5,000 due to Hemoccult positive stool - No anticoagulation given bleeding 3) Anemia from GI blood loss - Hemoglobin of 8.1 this morning - Hemoccult Positive - Continue Pantoprazole as per GI recommendations - GI consult - not a good source for endoscopy to investigate GI bleed - Discontinue Heparin 4) Acute Kidney Injury - Patient having decreased fluid intake over the last 24 hours with difficulty breathing - Creatinine of 1.3 today - Song catheter in place since admission - Strict I/Os 5) Speech Therapy 11/25 Evaluation 1. Moist mechanical soft diet as tolerated 2. STRICT aspiration precautions, straws OK with small single sips. Fully upright for p.o. intake and for 30 minutes after intake. Stringent oral care. Supervision while eating. 3. Small bites, small single sips. Frequent rest breaks and slow rate. No taking while eating. Should the patient have any difficulty tolerating this diet with these strategies, modify diet to pureed. 4. Will follow for tolerance. 6) Constipation - Milk of Magnesia - Miralax - Senna 7) Code Status - DNR/ DNI (Sea Wilson MD) Copy To Yanira Valdez, C.R.N.P Reviewed: Pt Seen/Exam by Me (Kristal Blevins MD) History Resident Physician Supervision Note: I was present with Dr. Wilson during the history and exam. I discussed the case with the resident and agree with the findings and plan as documented in the note. Any exceptions or clarifications are listed here: [None] Documented By: Kristal Blevins (Kristal Blevins MD)
== END 2016-12-11 14:30 | disposition expired | DRG 208 ==
LOC: ENRESERVDT → ENRESERVTM → EDBD 14:08 → C.EDB 14:16 → C.MSICU 15:48 → C.2E 11-27 15:56 → C.MSICU 12-06 09:44 → C.2E 12-10 15:34
PROVIDERS: ADMIT Hospitalist; ATTEND Family Medicine
PROC: 0BH18EZ Insertion of Endotracheal Airway into Trachea, Via Natural or Artificial Opening Endoscopic (ICD-10-PCS; principal; 2016-11-21)
PROC: 5A1945Z Respiratory Ventilation, 24-96 Consecutive Hours (ICD-10-PCS; principal; 2016-11-21)
PROC: 02HV33Z Insertion of Infusion Device into Superior Vena Cava, Percutaneous Approach (ICD-10-PCS; principal; 2016-11-21)
PROC: 02HV33Z Insertion of Infusion Device into Superior Vena Cava, Percutaneous Approach (ICD-10-PCS; 2016-12-06)
PROC: 0BH18EZ Insertion of Endotracheal Airway into Trachea, Via Natural or Artificial Opening Endoscopic (ICD-10-PCS; 2016-12-06)
PROC: 5A1945Z Respiratory Ventilation, 24-96 Consecutive Hours (ICD-10-PCS; 2016-12-06)
PROC: 0WHB33Z Insertion of Infusion Device into Left Pleural Cavity, Percutaneous Approach (ICD-10-PCS; 2016-12-07)
DX: J96.21 Acute and chronic respiratory failure with hypoxia (principal); J69.0 Pneumonitis due to inhalation of food and vomit; N17.9 Acute kidney failure, unspecified; I48.1 Persistent atrial fibrillation; K62.5 Hemorrhage of anus and rectum; E87.2 Acidosis; N39.0 Urinary tract infection, site not specified; J90 Pleural effusion, not elsewhere classified; J44.1 Chronic obstructive pulmonary disease with (acute) exacerbation; J96.00 Acute respiratory failure, unspecified whether with hypoxia or hypercapnia; Z51.5 Encounter for palliative care; F17.210 Nicotine dependence, cigarettes, uncomplicated; I48.0 Paroxysmal atrial fibrillation; E78.5 Hyperlipidemia, unspecified; Z82.49 Family history of ischemic heart disease and other diseases of the circulatory system; E87.5 Hyperkalemia; Z66 Do not resuscitate; D50.0 Iron deficiency anemia secondary to blood loss (chronic); E83.39 Other disorders of phosphorus metabolism; I12.9 Hypertensive chronic kidney disease with stage 1 through stage 4 chronic kidney disease, or unspecified chronic kidney disease; K59.00 Constipation, unspecified; E78.00 Pure hypercholesterolemia, unspecified; Z79.52 Long term (current) use of systemic steroids; N18.3 Chronic kidney disease, stage 3 (moderate); Z99.81 Dependence on supplemental oxygen; E11.65 Type 2 diabetes mellitus with hyperglycemia; Z88.1 Allergy status to other antibiotic agents; Z79.4 Long term (current) use of insulin; Z88.0 Allergy status to penicillin; E01.0 Iodine-deficiency related diffuse (endemic) goiter